=== PATIENT | male | born 1965 | race Caucasian/White ===

== ENCOUNTER 2022-12-04 08:57 | Emergency (ER) | payer BC, SELFPAY ==
[2022-12-04] VITALS (16 sets, daily range): BP systolic 146–148; BP diastolic 67–72; PULSE 94–101; RESP 17–23; TEMP 36.9; O2SAT 91–95; BMI 27.3
--- NOTE | 2022-12-04 09:23 | ED.GENADUL1 ---
HPI - General Adult General Chief complaint: Upper Respiratory Infection Stated complaint: Congestion cough Time Seen by Provider: 12/04/22 09:19 History of Present Illness HPI narrative: The patient is coming to us with cough as well as difficulty breathing after he was diagnosed 2 days ago by his primary care doctor for possible pneumonia and started on antibiotic The patient mentioned that he did not improve denies any other complaints although he have also history of asthma But he does not have an inhaler at home Related Data Previous Rx's Medication Instructions Recorded albuterol sulfate 90 mcg/actuation 2 inh inhalation Q6H PRN shortness 12/04/22 breath activated powder inhaler of breath or wheezing #1 ea azithromycin 250 mg tablet See Rx Instructions PO .COMPLEX #6 12/04/22 (Zithromax Z-Beny) tabs prednisone 50 mg tablet 50 mg PO DAILY 5 days #5 tabs 12/04/22 Allergies Allergy/AdvReac Type Severity Reaction Status Date / Time No Known Drug Allergies Allergy Verified 12/04/22 09:40 Review of Systems ROS Status of ROS 10 or more systems reviewed and unremarkable except as noted in history and below PFSH PFS Social History Smoking status: Never smoker Exam Narrative Exam Narrative: Nurses notes and vital signs reviewed and patient is not hypoxic. General: Well-appearing and in no apparent distress. Skin: Warm, dry, no pallor noted. No rash. Head: Normocephalic, atraumatic. Neck: Supple, non-tender. Eye: Pupils are equal, round and EOMI. No scleral icterus. Ears, Nose, Mouth, and Throat: TM are clear, no nasal mucosal hypertrophy. Oral mucosa is moist, no posterior oropharynx erythema, uvula is mid-line Cardiovascular: Regular Rate and Rhythm without murmur, gallop or rub. Respiratory: Bilateral lung rhonchi heard in both lung goyal Lungs are clear to auscultation, no wheezing, rales or rhonchi Chest Wall: no tenderness Back: No midline thoracic or lumbar vertebral tenderness. No CVA tenderness Musculoskeletal: normal ROM, no calf or popliteal tenderness, no lower extremity edema/swelling GI: Abdomen is soft, non-distended. Normal bowel sounds. No masses appreciated. No tenderness to palpation. No rebound, guarding, or rigidity noted. Neurological: A&O x4. No cranial nerve dysfunction observed. No truncal ataxia. Moves all extremities. Sensation intact. Psychiatric: Cooperative and interactive. Normal mood and affect. Constitutional Vital Signs, click to edit/add: Last Vital Signs Temp 98.5 F 12/04/22 09:04 Pulse 100 H 12/04/22 12:10 Resp 21 12/04/22 12:10 BP 146/72 H 12/04/22 09:59 Pulse Ox 93 L 12/04/22 12:10 O2 Del Method Room Air 12/04/22 09:45 Course Vital Signs Vital signs: Vital Signs Temperature 98.5 F 12/04/22 09:04 Pulse Rate 96 H 12/04/22 09:04 Respiratory Rate 18 12/04/22 09:04 Blood Pressure 148/67 H 12/04/22 09:04 Pulse Oximetry 94 L 12/04/22 09:04 Oxygen Delivery Method Room Air 12/04/22 09:04 Temperature 98.5 F 12/04/22 09:04 Pulse Rate 100 H 12/04/22 12:10 Respiratory Rate 21 12/04/22 12:10 Blood Pressure 146/72 H 12/04/22 09:59 Pulse Oximetry 93 L 12/04/22 12:10 Oxygen Delivery Method Room Air 12/04/22 09:45 Medical Decision Making MDM Narrative Medical decision making narrative: Chest x-ray showed no acute pathology the patient also had an EKG in the ER that was showing sinus rhythm with a heart rate of [address] elevation or depression CBC shows leukocytosis and the chemistry was within normal the patient was treated in the ER with Solu-Medrol as well as breathing treatment after which she was feeling much better I did walk with him in the room to make sure that his pulse ox was not drop and he was feeling a lot better with no difficulty breathing I did stop the patient doxycycline and give him 1 dose of ceftriaxone and azithromycin in the ER discharged home with a Z-Beny The patient is to follow up with primary care physician in next 2-3 days or to return to the emergency department should any of the signs or symptoms worsen or new symptoms develop. The patient agrees with the following Diagnosis and Treatment plan and the patient will be discharged home. Lab Data Labs: Lab Results 12/04/22 Range/Units 08:57 WBC 18.2 H (4.0-11.0) 10^3/uL RBC 5.32 (4.70-6.10) 10^6/uL Hgb 10.2 L (14.0-18.0) g/dL Hct 39.0 L (42.0-54.0) % MCV 73.3 L (80.0-94.0) fL MCH 19.2 L (25.9-34.0) pg MCHC 26.2 L (29.9-35.2) g/dL RDW 19.6 H (11.0-15.0) % Plt Count 981 H (150-450) 10^3/uL MPV 8.5 L (9.5-13.5) fL Neut % (Auto) 86.4 H (43.0-75.0) % Lymph % (Auto) 4.1 L (20.5-60.0) % [place] % (Auto) 3.6 (1.7-12.0) % Eos % (Auto) 2.4 (0.9-7.0) % Baso % (Auto) 1.1 (0.2-2.0) % Neut # (Auto) 15.7 H (1.4-6.5) 10^3/uL Lymph # (Auto) 0.7 L (1.2-3.8) 10^3/uL [place] # (Auto) 0.7 (0.3-0.8) 10^3/uL Eos # (Auto) 0.4 (0.0-0.7) 10^3/uL Baso # (Auto) 0.2 H (0.0-0.1) 10^3/uL Abs Immat Gran (auto) 0.44 H (0.00-0.03) 10^3/uL Imm/Tot Granulo (auto) 2.4 H (0.0-0.5) % Sodium 141 (136-145) mmol/L Potassium 4.3 (3.5-5.1) mmol/L Chloride 105 (98-107) mmol/L Carbon Dioxide 27.2 (21.0-32.0) mmol/L Anion Gap 13.1 BUN 13.0 (7.0-18.0) mg/dL Creatinine 1.00 (0.70-1.30) mg/dL Est GFR ( Amer) >60 (>=60) Est GFR (Non-Af Amer) >60 (>=60) BUN/Creatinine Ratio 13.0 Glucose 85 (74-106) mg/dL Calcium 8.5 (8.5-10.1) mg/dL Total Bilirubin 0.7 (0.2-1.0) mg/dL AST 17 (15-37) U/L ALT 22 (16-63) U/L Alkaline Phosphatase 67 (46-116) U/L Troponin I High Sens 4.7 (4.0-76.1) pg/mL Total Protein 7.1 (6.4-8.2) g/dL Albumin 3.8 (3.4-5.0) g/dL Globulin 3.3 g/dL Albumin/Globulin Ratio 1.2 Discharge Plan Discharge Chief Complaint: Upper Respiratory Infection Clinical Impression: Pneumonia Patient Disposition: Home, Self-Care Time of Disposition Decision: 11:45 Condition: Good Prescriptions / Home Meds: New azithromycin [Zithromax Z-Beny] 250 mg tablet See Rx Instructions .ROUTE .COMPLEX Qty: 6 0RF Rx Instructions: For 250 mg dose pack: take 500 mg today (day 1), then 250 mg for 4 days (days 2-5) prednisone 50 mg tablet 50 mg PO DAILY 5 Days Qty: 5 0RF albuterol sulfate 90 mcg/actuation aerosol powdr breath activated 2 inh inhalation Q6H PRN (Reason: shortness of breath or wheezing) Qty: 1 0RF Instructions: Community Acquired Pneumonia (DC) Stand Alone Forms: Portal Instructions Referrals: Tigre Rodríguez DO [Primary Care Provider] - 1 week Discharge Date/Time: 12/04/22 12:55
--- NOTE | 2022-12-04 09:24 | XR_ITS ---
The [address] [address] Patient Name: SHANEKA HERRERA MRN: [id number] date: 1965 Sex: M Assigned Patient Location: ER Current Patient Location: ED.MAIN Accession/Order Number: [id number] Exam Date: 12/04/2022 09:34 Report Date: 12/04/2022 10:54 At the request of: SRINIVAS VILLAVICENCIO Procedure: XR chest 1V EXAM: XR chest 1V 12/04/2022 FINDINGS: Single upright AP chest image was obtained. HISTORY: SOB. COMPARISON: None. XR/XR chest 1V IMPRESSION: 1. Prior [id number] fixation of the mid left clavicle for treatment of fracture. 2. The cardiomediastinal contours are within normal limits. Minimal left basilar atelectatic changes noted. 3. No dense consolidation, effusion, edema, failure, pneumothorax, or acute osseous abnormality otherwise identified. Electronically authenticated by: TINO MI Date: 12/04/2022 10:54
--- NOTE | 2022-12-04 09:24 | ECG_ITS ---
[facility] Test Date: 2022-12-04 Pat Name: Anil Leos Department: Room: - Gender: Male [employer]: : 1965 Requested By: GRETA MERIDA Order Number: [id number] Reading MD: GRETA MERIDA Measurements Intervals [place] Rate: 92 P: 70 WA: 152 QRS: 74 QRSD: 88 T: 61 QT: 370 QTc: 420 Interpretive Statements 1100 Sinus rhythm 2420 RSR (QR) in lead V1/V2, consistent with right ventricular conduction delay [address] depression 6220 Possible left atrial enlargement 9130 borderline ECG No previous ECG available for comparison Electronically Signed On 12-05-2022 16:52:57 EDT by GRETA MERIDA
[2022-12-04] MEDS: IPRATROPIUM/ALBUTEROL SULFATE 3 ML AMPUL.NEB IH (09:45)
[2022-12-04] MEDS: METHYLPREDNISOLONE SOD SUCC PF 125 MG/2 ML VIAL IVP (09:50)
[2022-12-04 10:05] LABS: Basophils Absolute Auto 0.2 10^3/uL (0.0-0.1); Basophils Percent Auto 1.1 % (0.2-2.0); Eosinophils Absolute Auto 0.4 10^3/uL (0.0-0.7); Eosinophils Percent Auto 2.4 % (0.9-7.0); Hemoglobin 10.2 g/dL (14.0-18.0); Immature Granulocytes Abs Auto 0.44 10^3/uL (0.00-0.03); Immature Granulocytes Pct Auto 2.4 % (0.0-0.5); Lymphocytes Absolute Auto 0.7 10^3/uL (1.2-3.8); Lymphocytes Percent Auto 4.1 % (20.5-60.0); Mean Corpuscular Hemoglobin 19.2 pg (25.9-34.0); Mean Corpuscular Volume 73.3 fL (80.0-94.0); Mean Platelet Volume 8.5 fL (9.5-13.5); Monocytes Absolute Auto 0.7 10^3/uL (0.3-0.8); Monocytes Percent Auto 3.6 % (1.7-12.0); Neutrophils Absolute Auto 15.7 10^3/uL (1.4-6.5); Neutrophils Percent Auto 86.4 % (43.0-75.0); Platelet Count 981 10^3/uL (150-450); Red Blood Count 5.32 10^6/uL (4.70-6.10); Red Cell Distribution Width 19.6 % (11.0-15.0); White Blood Count 18.2 10^3/uL (4.0-11.0)
[2022-12-04 10:06] LABS: Mean Corpuscular HGB Conc 26.2 g/dL (29.9-35.2)
--- NOTE | 2022-12-04 10:29 | PC.NURSE ---
Patient currently on clinical trial for increased blood cell production. taking medication [id number]. Labs may show decreased hematocrit.
[2022-12-04 10:37] LABS: Alanine Aminotransferase 22 U/L (16-63); Albumin Globulin Ratio 1.2; Albumin Level 3.8 g/dL (3.4-5.0); Alkaline Phosphatase 67 U/L (46-116); Anion Gap 13.1; Aspartate Amino Transferase 17 U/L (15-37); Bilirubin Total 0.7 mg/dL (0.2-1.0); Calcium 8.5 mg/dL (8.5-10.1); Carbon Dioxide 27.2 mmol/L (21.0-32.0); Chloride 105 mmol/L (98-107); Estimated GFR (African America >60 (>=60); Estimated GFR (Non-African Ame >60 (>=60); Globulin 3.3 g/dL; Glucose 85 mg/dL (74-106); Potassium 4.3 mmol/L (3.5-5.1); Sodium 141 mmol/L (136-145); Total Protein 7.1 g/dL (6.4-8.2); Troponin I High Sensitivity 4.7 pg/mL (4.0-76.1)
[2022-12-04] MEDS: CEFTRIAXONE 1,000 MG in 0.9 % SODIUM CHLORIDE 50 ML 100 MG IV (11:20)
[2022-12-04] MEDS: AZITHROMYCIN 500 MG in 0.9 % SODIUM CHLORIDE 250 ML 250 MG IV (11:22)
== END 2022-12-04 12:55 | disposition home or self-care (01) ==
PROVIDERS: Emergency Provider Emergency Medicine; PCP Internal Medicine
DX: J18.9 Pneumonia, unspecified organism (principal)
CPT/HCPCS: 36415; 71045; 80053; 84484; 85025; 93005; 94640; 96365; 96366; 96368; 96375; 99285; J0456; J2930

== ENCOUNTER 2023-08-12 21:54 | Emergency (ER) | payer OTHER, SELFPAY ==
--- OUTSIDE RECORDS SUMMARY | 2023-08-12 22:02 | XMS_ITS ---
Patient Summarization (C-CDA 2.1 CCD) Created on: August 12, 2023 ANIL LEOS : 1965 Sex: Male Author Organization Sample organization Care Team Providers Care Bpm Solution Architect Name Role Phone Nate Houser MD (Historical) Primary Care Provider Tigre Rodríguez DO Primary Care Provider Bryce Ventura MD Unavailable Agapito RN, Hannah Unavailable [phone] TIGRE RODRÍGUEZ Primary Care Physician [phone] FUAD, DR HERNANDES Consulting Unavailable BALL, DR HERNANDES Primary Care Unavailable BALL, DR HERNANDES Admitting Unavailable BALL, DR HERNANDES Attending Unavailable BALL, DR HERNANDES Consulting Unavailable BALL, DR HERNANDES Primary Care Unavailable BALL, DR HERNANDES Admitting Unavailable BALL, DR HERNANDES Attending Unavailable BALL, DR HERNANDES Attending Unavailable BALL, DR HERNANDES Consulting Unavailable BALL, DR HERNANDES Primary Care Unavailable BALL, DR HERNANDES Admitting Unavailable BALL, DR HERNANDES Attending Unavailable BALL, DR HERNANDES Primary Care Unavailable FUAD, DR HERNANDES Admitting Unavailable Tigre Rodríguez DO Primary Care Provider Bryce Ventura MD Unavailable Agapito RN, Hannah Unavailable Tigre Rodríguez DO Primary Care Provider Bryce Ventura MD Unavailable Agapito RN, Hannah Unavailable [phone] Tigre Rodríguez Unavailable Agapito MC, Hannah Unavailable Tigre Rodríguez DO Primary Care Provider BRYCE VENTURA Referring Unavailable TIGRE RODRÍGUEZ Primary Care Unavailable BRYCE VENTURA T Referring Unavailable TIGRE RODRÍGUEZ Primary Care Unavailable ANNIE ABREU Attending Unavailable BRYCE VENTURA Referring Unavailable TIGRE RODRÍGUEZ Primary Care Unavailable BRYCE VENTURA Referring Unavailable TIGRE RODRÍGUEZ Primary Care Unavailable ANNIE ABREU Attending Unavailable GERDS, BRYCE T Referring Unavailable BALL, TIGRE E Primary Care Unavailable GERDS, BRYCE T Referring Unavailable BALL, TIGRE E Primary Care Unavailable BALL, TIGRE E Primary Care Unavailable BALDERMAN, TREVA Referring Unavailable BALL, TIGRE E Primary Care Unavailable BALDERMAN, TREVA Referring Unavailable GERDS, BRYCE T Referring Unavailable BALL, TIGRE E Primary Care Unavailable GERDS, BRYCE T Referring Unavailable BALL, TIGRE E Primary Care Unavailable GERDS, BRYCE T Referring Unavailable BALL, TIGRE E Primary Care Unavailable KUN MATTSON Attending Unavailable GERDS, BRYCE T Referring Unavailable BALL, TIGRE E Primary Care Unavailable GERDS, BRYCE T Referring Unavailable BALL, TIGRE E Primary Care Unavailable BALL, TIGRE E Primary Care Unavailable GERDS, BRYCE T Referring Unavailable BALL, TIGRE E Primary Care Unavailable BALDERMAN, TREVA Referring Unavailable BALDERMANBRENTIA Attending Unavailable GERDS, BRYCE T Referring Unavailable BALL, TIGRE E Primary Care Unavailable GERDS, BRYCE T Referring Unavailable BALL, TIGRE E Primary Care Unavailable GERDS, BRYCE T Referring Unavailable SHERYL GONZALEZ Attending Unavailable BALL, TIGRE E Primary Care Unavailable BALL, TIGRE E Primary Care Unavailable GERDS, BRYCE T Referring Unavailable BALL, TIGRE E Primary Care Unavailable ANNIE ABREU Attending Unavailable GERDS, BRYCE T Referring Unavailable GERDS, BRYCE T Referring Unavailable BALL, TIGRE E Primary Care Unavailable ANNIE ABREU Attending Unavailable GERDS, BRYCE T Referring Unavailable BALL, TIGRE E Primary Care Unavailable GERDS, BRYCE T Referring Unavailable BALL, TIGRE E Primary Care Unavailable GERDS, BRYCE T Referring Unavailable BALL, TIGRE E Primary Care Unavailable GERDS, BRYCE T Referring Unavailable BALL, TIGRE E Primary Care Unavailable GERDS, BRYCE T Referring Unavailable BALL, TIGRE E Primary Care Unavailable ANNIE ABREU Attending Unavailable GERDS, BRYCE T Referring Unavailable BALL, TIGRE E Primary Care Unavailable GERDS, BRYCE T Referring Unavailable BALL, TIGRE E Primary Care Unavailable GERDS, BRYCE T Referring Unavailable BALL, TIGRE E Primary Care Unavailable GERDS, BRYCE T Referring Unavailable BALL, TIGRE E Primary Care Unavailable GERDS, BRYCE T Referring Unavailable BALL, TIGRE E Primary Care Unavailable GERDS, BRYCE T Referring Unavailable BALL, TIGRE E Primary Care Unavailable ANNIE ABREU Attending Unavailable GERDS, BRYCE T Referring Unavailable BALL, TIGRE E Primary Care Unavailable Allergies Allergy Classification Reported Allergen(s) Allergy Type Date of Onset Reaction(s) Facility Sulfamethoxazole / Trimethoprim (1 source) Sulfamethoxazole / Trimethoprim Drug Allergy 1 Rash [facility] (20 sources) Sulfamethoxazole / Trimethoprim; Translations: [SULFAMETHOXAZOLE-TR IMETHOPRIM] Drug Allergy 1 [facility] (1 source) Cefuroxime; Translations: [cefuroxime] Drug Allergy [facility] (1 source) Etodolac; Translations: [etodolac] Drug Allergy [facility] (2 sources) Etodolac Drug Allergy 6 [facility] Repository Encounters Encounter Date Encounter Type Care Provider Facility Start: 08-11-2023 End: 08-11-2023 Nursing evaluation of patient and report Anaid Mabry RN Hematology/Oncology Comment on above: Polycythemia vera (H CC) (Primary Dx) Start: 08-11-2023 End: 08-12-2023 ambulatory TIGRE RODRÍGUEZ Facility:[facility] Start: 07-19-2023 End: 07-19-2023 ambulatory [facility] Work Phone: Start: 07-19-2023 End: 07-19-2023 Patient encounter procedure [facility] Work Phone: Start: 07-14-2023 End: 07-14-2023 Orders Only Tad Davis MD Work Phone: Hematology/Oncology Comment on above: Polycythemia vera (H CC) (Primary Dx) Start: 07-14-2023 Non-patient / Non-visit [facility] Work Phone: Start: 06-16-2023 End: 06-16-2023 Nursing evaluation of patient and report Hannah Lyons RN Work Phone: Hematology/Oncology Comment on above: Polycythemia vera (H CC) (Primary Dx) Start: 06-16-2023 End: 06-16-2023 Patient encounter procedure Annie Abreu APRN.CHAMFERING MACHINE OPERATOR Work Phone: Hematology/Oncology Start: 06-16-2023 End: 06-16-2023 Patient entered into trial Annie Abreu APRN.CHAMFERING MACHINE OPERATOR Work Phone: [facility] Start: 06-16-2023 Non-patient / Non-visit [facility] Work Phone: Start: 06-16-2023 End: 06-16-2023 ambulatory Annie Abreu CONFIGURATION MANAGEMENT ANALYST.CHAMFERING MACHINE OPERATOR Work Phone: Hematology/Oncology Comment on above: Polycythemia vera (H CC) (Primary Dx); Research study patient Start: 05-31-2023 End: 05-31-2023 ambulatory [facility] Work Phone: Start: 05-31-2023 End: 05-31-2023 Patient encounter procedure [facility] Work Phone: Start: 05-19-2023 End: 05-20-2023 ambulatory Annie Abreu CONFIGURATION MANAGEMENT ANALYST.CHAMFERING MACHINE OPERATOR Work Phone: Hematology/Oncology Comment on above: Polycythemia vera (H CC) (Primary Dx); Research study patient Polycythemia vera (H CC) (Primary Dx) Start: 05-19-2023 Chart abstracting Flavio garcia Research Coordinator Hematology/Oncology Comment on above: Research (PTG 1Z21 E OT Rollover to PTG 1923 C1D1 Enrollment) Start: 05-19-2023 End: 05-19-2023 Subsequent hospital visit by physician Pattie Gastelum Work Phone: Radiology Comment on above: Polycythemia vera (H CC) [D45] Start: 05-19-2023 End: 05-19-2023 Patient encounter procedure Annie Abreu CONFIGURATION MANAGEMENT ANALYST.CHAMFERING MACHINE OPERATOR Work Phone: [facility] Start: 05-19-2023 End: 05-19-2023 Patient entered into trial Annie Abreu CONFIGURATION MANAGEMENT ANALYST.CHAMFERING MACHINE OPERATOR Work Phone: [facility] Work Phone: Start: 05-19-2023 Non-patient / [facility] Work Phone: Start: 05-19-2023 End: 05-19-2023 Nursing evaluation of patient and report Hannah Lyons RN Work Phone: Hematology/Oncology Comment on above: Polycythemia vera (H CC) (Primary Dx) Start: 05-18-2023 Telephone encounter Financial Navigator Venkat Work Phone: Hematology/Oncology Comment on above: Benefits Investigati on Start: 05-17-2023 Telephone encounter Hannah Lyons RN Work Phone: Hematology/Oncology Comment on above: Research (PTG 1923/2 4-180 consent presentation) Start: 05-16-2023 Orders Only Bryce Ventura MD Work Phone: Hematology/Oncology Comment on above: Polycythemia rubra v era (HCC) (Primary Dx) Start: 03-24-2023 End: 03-24-2023 Nursing evaluation of patient and report Hannah Lyons RN Work Phone: Hematology/Oncology Comment on above: Polycythemia vera (H CC) (Primary Dx) Start: 03-24-2023 End: 03-24-2023 Patient encounter procedure Annie Abreu APRN.CHAMFERING MACHINE OPERATOR Work Phone: [facility] Start: 03-24-2023 End: 03-24-2023 Patient entered into trial Annie Abreu APRN.CHAMFERING MACHINE OPERATOR Work Phone: [facility] Work Phone: Start: 03-24-2023 End: 03-24-2023 ambulatory Annie Abreu APRN.CHAMFERING MACHINE OPERATOR Work Phone: Hematology/Oncology Comment on above: Polycythemia vera (H CC) (Primary Dx); Research study patient; Bilateral cold feet Start: 03-22-2023 Telephone encounter Anaid Mabry RN Hematology/Oncology Comment on above: Appointment Reschedu led Start: 01-27-2023 End: 01-27-2023 ambulatory BRYCE VENTURA Facility:[facility] Start: 01-27-2023 End: 01-27-2023 ambulatory BRYCE VENTURA Facility:[facility] Start: 12-03-2022 End: 12-03-2022 ambulatory Tigre Rodríguez Other [facility] Other Start: 12-03-2022 Office outpatient vi sit 15 minutes Tigre SERVIN [facility] Start: 12-03-2022 Telephone encounter Tigre Rodriguez [facility] Start: 12-02-2022 End: 12-02-2022 ambulatory BRYCE VENTURA Facility:[facility] Start: 12-02-2022 End: 12-02-2022 Subsequent hospital visit by physician Pattie Gastelum Work Phone: Radiology Comment on above: PV (polycythemia torrey a) (HCC) [D45] Start: 12-02-2022 End: 12-02-2022 Nursing evaluation of patient and report Hannah Lyons RN Work Phone: Hematology/Oncology Comment on above: Polycythemia vera (H CC) (Primary Dx) Start: 12-02-2022 End: 12-02-2022 ambulatory TIGRE RODRÍGUEZ Facility:[facility] Start: 10-08-2022 End: 10-08-2022 ambulatory Tigre Rodríguez Other [facility] Other Start: 10-08-2022 Telephone encounter Tigre Rodríguez [facility] Start: 10-07-2022 End: 10-07-2022 Nursing evaluation of patient and report Hannah Lyons RN Work Phone: Hematology/Oncology Comment on above: Polycythemia vera (H CC) (Primary Dx) Start: 10-07-2022 End: 10-07-2022 Patient encounter procedure Sheryl Gonzalez PA-C Work Phone: [facility] Start: 10-07-2022 End: 10-07-2022 ambulatory Sheryl SALAZAR-Darline Work Phone: Hematology/Oncology Comment on above: Polycythemia vera (H CC) (Primary Dx) Start: 10-07-2022 Encounter for genera l adult medical examination without abnormal findings BRYCE VENTURA [facility] Start: 10-06-2022 End: 10-06-2022 ambulatory Tigre Rodríguez Other [facility] Other Start: 10-06-2022 Encounter for genera l adult medical examination without abnormal findings Tigre Rodríguez [facility] Start: 10-06-2022 Periodic preventive med est patient 40-64yrs Tigre Rodríguez [facility] Start: 09-10-2022 Telephone encounter Hannah Lyons RN Work Phone: Hematology/Oncology Comment on above: Appointment Start: 09-10-2022 End: 09-10-2022 ambulatory BRYCE VENTURA Facility:[facility] Start: 08-25-2022 Orders Only Bryce Ventura MD Work Phone: Hematology/Oncology Comment on above: Polycythemia vera (H CC) (Primary Dx) Start: 08-13-2022 End: 08-13-2022 Nursing evaluation of patient and report Kyleigh Rust tree planter/Oncology Comment on above: Polycythemia vera (H CC) (Primary Dx) Start: 08-13-2022 End: 08-13-2022 Patient encounter procedure Annie Abreu APRN.CNP Work Phone: [facility] Start: 08-13-2022 End: 08-13-2022 Patient entered into trial Annie Abreu APRN.CHAMFERING MACHINE OPERATOR Work Phone: Hematology/Oncology Start: 08-13-2022 End: 08-13-2022 ambulatory Annie Abreu APRN.CHAMFERING MACHINE OPERATOR Work Phone: Hematology/Oncology Comment on above: Polycythemia vera (H CC) (Primary Dx); Research study patient; Dizziness Start: 08-09-2022 Telephone encounter Kyleigh Strong i tree planter/Oncology Comment on above: Returning Patient's Call Start: 06-18-2022 Orders Only Bryce Ventura MD Work Phone: Hematology/Oncology Comment on above: Polycythemia vera (H CC) (Primary Dx) Start: 06-17-2022 End: 06-17-2022 Orders Only Tad Davis MD Work Phone: Hematology/Oncology Comment on above: Polycythemia vera (H CC) (Primary Dx) Start: 06-04-2022 End: 06-04-2022 ambulatory Tigre Rodríguez Other [facility] Other Start: 06-04-2022 Nursing evaluation o f patient and report Tigre Rodríguez [facility] Start: 04-23-2022 Orders Only Meghan Brady PRN.CHAMFERING MACHINE OPERATOR Work Phone: Hematology/Oncology Comment on above: Polycythemia vera (H CC) (Primary Dx) Start: 04-22-2022 End: 04-22-2022 Nursing evaluation of patient and report Hannah Lyons RN Work Phone: Hematology/Oncology Comment on above: Polycythemia vera (H CC) (Primary Dx) Start: 04-22-2022 End: 04-22-2022 Subsequent hospital visit by physician Pattie Gastelum Work Phone: Radiology Comment on above: Splenomegaly, not el sewhere classified [R16.1] 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] Start: 02-25-2022 End: 02-25-2022 Nursing evaluation of patient and report Hannah Lyons RN Work Phone: Hematology/Oncology Comment on above: Polycythemia vera (H CC) (Primary Dx) Start: 02-25-2022 End: 02-25-2022 Office outpatient visit 25 minutes Bryce Ventura MD Work Phone: Hematology/Oncology Comment on above: Polycythemia vera (H CC) (Primary Dx) Start: 02-22-2022 Orders Only Bryce Ventura MD Work Phone: Hematology/Oncology Comment on above: Polycythemia vera (H CC) (Primary Dx) Splenomegaly, not el sewhere classified (Primary Dx) Start: 02-03-2022 Telephone encounter Hannah Lyons RN Work Phone: Hematology/Oncology Comment on above: Appointment Start: 01-28-2022 End: 01-28-2022 ambulatory Meghan Graves CONFIGURATION MANAGEMENT ANALYST.CHAMFERING MACHINE OPERATOR Work Phone: Hematology/Oncology Comment on above: Polycythemia vera (H CC) (Primary Dx) Start: 01-28-2022 End: 01-28-2022 Patient encounter procedure Meghan Graves CONFIGURATION MANAGEMENT ANALYST.CHAMFERING MACHINE OPERATOR Work Phone: [facility] Start: 12-31-2021 End: 12-31-2021 ambulatory Meghan Graves CONFIGURATION MANAGEMENT ANALYST.CHAMFERING MACHINE OPERATOR Work Phone: Hematology/Oncology Comment on above: Polycythemia vera (H CC) (Primary Dx) Start: 12-31-2021 End: 12-31-2021 Patient encounter procedure Meghan Graves CONFIGURATION MANAGEMENT ANALYST.CHAMFERING MACHINE OPERATOR Work Phone: [facility] Start: 12-28-2021 Orders Only Meghan Graves A PRN.CHAMFERING MACHINE OPERATOR Work Phone: Hematology/Oncology Comment on above: Polycythemia vera (H CC) (Primary Dx) Start: 12-03-2021 End: 12-03-2021 Nursing evaluation of patient and report Hannah Lyons RN Work Phone: Hematology/Oncology Comment on above: Polycythemia vera (H CC) (Primary Dx) Start: 12-02-2021 Orders Only Meghan Graves A PRN.CHAMFERING MACHINE OPERATOR Work Phone: Hematology/Oncology Comment on above: Polycythemia vera (H CC) (Primary Dx) Start: 11-05-2021 End: 11-05-2021 ambulatory Meghan Graves CONFIGURATION MANAGEMENT ANALYST.CHAMFERING MACHINE OPERATOR Work Phone: Hematology/Oncology Comment on above: Polycythemia vera (H CC) (Primary Dx) Start: 11-05-2021 End: 11-05-2021 Patient encounter procedure Meghan Graves CONFIGURATION MANAGEMENT ANALYST.CHAMFERING MACHINE OPERATOR Work Phone: [facility] Start: 10-15-2021 Orders Only Meghan Graves RN [facility] tology/Oncology Comment on above: Polycythemia vera (H CC) (Primary Dx) Start: 10-08-2021 End: 10-08-2021 ambulatory Elizabeth Dunn APRN.CHAMFERING MACHINE OPERATOR Work Phone: Hematology/Oncology Comment on above: Polycythemia vera (H CC) (Primary Dx) Start: 10-08-2021 End: 10-08-2021 Nursing evaluation of patient and report Hannah Lyons RN Work Phone: Hematology/Oncology Comment on above: Polycythemia vera (H CC) (Primary Dx) Start: 10-08-2021 End: 10-08-2021 Patient encounter procedure Elizabeth Dunn APRN.CHAMFERING MACHINE OPERATOR Work Phone: [facility] Start: 09-21-2021 Orders Only Bryce Ventura MD Work Phone: Hematology/Oncology Comment on above: 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) Start: 09-17-2021 Encounter for genera l adult medical examination without abnormal findings DR TIGRE RODRÍGUEZ [facility] Start: 09-11-2021 End: 09-12-[address] TIGRE RODRÍGUEZ Facility:[facility] Start: 09-11-2021 End: 09-12-2021 Encounter for general adult medical examination without abnormal findings DR TIGRE RODRÍGUEZ Facility:[facility] Start: 09-10-2021 End: 09-10-2021 Nursing evaluation of patient and report Hannah Lyons RN Work Phone: Hematology/Oncology Comment on above: Polycythemia vera (H CC) (Primary Dx) Start: 09-10-2021 End: 09-10-2021 ambulatory Bryce Ventura MD Work Phone: Hematology/Oncology Comment on above: Polycythemia vera (H CC) (Primary Dx) Start: 09-10-2021 End: 09-10-2021 Patient encounter procedure Bryce Ventura MD Work Phone: [facility] Start: 09-10-2021 End: 09-10-2021 Subsequent hospital visit by physician Pattie Main Ca Work Phone: Radiology Comment on above: Splenomegaly, not el sewhere classified [R16.1] Start: 09-01-2021 Telephone encounter Hannah Lyons RN Work Phone: Hematology/Oncology Comment on above: Patient Question; Re search (PTG 1Z21/21-283) Start: 08-11-2021 End: 08-11-2021 ambulatory Elizabeth Dunn APRN.CHAMFERING MACHINE OPERATOR Work Phone: Hematology/Oncology Comment on above: Polycythemia vera (H CC) (Primary Dx) Start: 08-11-2021 End: 08-11-2021 Nursing evaluation of patient and report Hannah Lyons RN Work Phone: Hematology/Oncology Comment on above: Polycythemia vera (H CC) (Primary Dx) Start: 08-11-2021 End: 08-11-2021 Patient encounter procedure Elizabeth Dunn APRN.CHAMFERING MACHINE OPERATOR Work Phone: [facility] Start: 07-27-2021 Orders Only Elizabeth MORTON RN.CHAMFERING MACHINE OPERATOR Work Phone: Hematology/Oncology Comment on above: Polycythemia vera (H CC) (Primary Dx) Start: 07-14-2021 End: 07-14-2021 ambulatory Bryce Ventura MD Work Phone: Hematology/Oncology Comment on above: Polycythemia vera (H CC) (Primary Dx) Start: 07-14-2021 End: 07-14-2021 Nursing evaluation of patient and report Hannah Lyons RN Work Phone: Hematology/Oncology Comment on above: Polycythemia vera (H CC) (Primary Dx) Start: 07-14-2021 End: 07-14-2021 Patient encounter procedure Bryce Ventura MD Work Phone: [facility] Start: 06-18-2021 End: 06-18-2021 Nursing evaluation of patient and report Hannah Lyons RN Work Phone: Hematology/Oncology Comment on above: Polycythemia vera (H CC) (Primary Dx) Start: 05-21-2021 End: 05-21-2021 ambulatory Meghan Graves APRN.CHAMFERING MACHINE OPERATOR Work Phone: Hematology/Oncology Comment on above: Polycythemia vera (H CC) (Primary Dx) Start: 05-21-2021 End: 05-21-2021 Nursing evaluation of patient and report Hannah Lyons RN Work Phone: Hematology/Oncology Comment on above: Polycythemia vera (H CC) (Primary Dx) Start: 05-21-2021 End: 05-21-2021 Patient encounter procedure Meghan Graves APRN.CHAMFERING MACHINE OPERATOR Work Phone: [facility] Start: 2021 End: 06-05-2021 Patient encounter procedure Juan Allen [facility] Start: 11-09-[address] TIGRE RODRÍGUEZ Facili ty:[facility] Start: 10-15-2020 End: 10-15-2020 Chart abstracting Robert Cummings MD Work Phone: Hematology/Oncology Start: 10-01-2020 End: 10-02-[address] TIGRE RODRÍGUEZ Facility:[facility] Start: 09-29-2020 End: 09-30-[address] TIGRE RODRÍGUEZ Facility:[facility] Immunizations Immunization Date Immunization Notes Care Provider [facility] 02-03-2022 influenza virus vaccine, split virus (incl. purified surface antigen) Tigre Rodríguez Other [facility] Other 02-03-2022 influenza virus vaccine, unspecified formulation Hannah Lyons RN Work Phone: [facility] 01-28-2021 COVID-19 vaccine (UNSPECIFIED) Meghan Graves APRN.CHAMFERING MACHINE OPERATOR Work Phone: [facility] 01-23-2021 influenza, injectabl e, quadrivalent, preservative free Meghan Graves APRN.CHAMFERING MACHINE OPERATOR Work Phone: [facility] 05-23-2020 COVID-19 vaccine, ag e 12+ yr ([employer] - PURPLE TOP) Meghan Graves APRN.CHAMFERING MACHINE OPERATOR Work Phone: [facility] 05-02-2020 COVID-19 vaccine, ag e 12+ yr ([employer] - PURPLE TOP) Meghan Graves APRN.[facility] Work Phone: [facility] 12-24-2019 influenza virus vaccine, split virus (incl. purified surface antigen) Tigre Rodríguez Other [facility] Other 12-24-2019 influenza virus vaccine, unspecified formulation [facility] Medications Current Medications Medication Drug Class(es) Dates Sig (Normalized) Sig (Original) amLODIPine 5 mg oral tablet (20 sources) Dihydropyridine Calcium Channel Candace Start: 07-19-2023 take 5 mg by mouth once daily Amlodipine Active 5 MG PO Daily July 19, 2023 12:00am Start: 10-01-2020 take 1 tablet by miriam th once daily amLODIPine (NORVASC) 5 mg tablet Take 5 mg by mouth once daily. 0 10/01/2020 Active Comment on above: Take 5 mg by mouth o nce daily. amoxicillin 875 mg / clavulanate 125 mg oral tablet (1 source) Penicillin-class Antibacterial Start: 024 take 1 tablet by mouth twice daily Amoxicillin-Pot Clavulanate Active 1 TAB PO Twice daily 14 7 July 19, 2023 12:00am aspirin 81 mg oral tablet (20 sources) Platelet Aggregation Inhibitor, Nonsteroidal Anti-inflammatory Drug aspirin 81 mg cap Take by mouth once daily. 0 Active Comment on above: Take by mouth once d aily. doxycycline hyclate 100 mg oral capsule (2 sources) Tetracycline-class Drug Start: take 1 capsule by mouth every twelve hours Doxycycline Hyclate 100 MG 1 capsule Orally Twice a day for 5 days Nov, Active efinaconazole 100 mg/ml topical solution (20 sources) Azole Antifungal efinaconazole 1 0 % alfa Apply 1 application to affected area once daily. 0 Active Comment on above: Apply 1 application to affected area once daily. enteric contrast (will be provided with radiology test) (2 sources) Start: End: enteric contrast (will be provided with radiology test) For CT ABD WO IVCON order Administer, As Directed One Time Only, via Oral, Rectal, both Oral and Rectal, Enteric Tube, Stoma or Indwelling Catheter, Enteric Contrast as designated per enteric contrast guidelines 1 Each 0 02/22/2022 02/23/2022 Active Comment on above: For CT ABD WO IVCON order Administer, As Directed One Time Only, via Oral, Rectal, both Oral and Rectal, Enteric Tube, Stoma or Indwelling Catheter, Enteric Contrast as designated per enteric contrast guidelines fluticasone propionate 0.05 mg/actuat metered dose nasal spray (1 source) Corticosteroid Start: take 1 spray(s) nasal route twice daily Fluticasone Propionate (Flonase Allergy Relief) 50 mcg/actuation spray,suspension Active 1 SPRAY INTRANASAL Twice daily July 19, 2023 12:00am administer into each nostril KRILL OIL ORAL (20 sources) KRILL OIL ORAL T margarito by mouth twice daily. 0 Active Comment on above: Take by mouth twice daily. magnesium glycinate 100 mg magnesium capsule (4 sources) Start: take 2 capsules by mouth once daily, then take 2 capsules by mouth once daily magnesium glycinate 100 mg magnesium capsule Take 2 capsules by mouth once daily. Take 2 capsules by mouth once daily in late afternoon 30 capsule 1 07/14/2023 Active meclizine hydrochloride 12.5 mg oral tablet (3 sources) Antiemetic Start: End: take 2 tablets by mouth every twelve hours as needed meclizine (ANTIVERT) 12.5 mg tab Take 2 tablets by mouth twice daily as needed. 28 tablet 0 08/13/2022 09/12/2022 Active Comment on above: Take 2 tablets by [facility] twice daily as needed. multivitamin with minerals (ONE-A-DAY 50 PLUS ORAL) (20 sources) multivitamin wit h minerals (ONE-A-DAY 50 PLUS ORAL) Take by mouth once daily. 0 Active Comment on above: Take by mouth once d aily. ruxolitinib (20 sources) ruxolitinib phosphate (OPZELURA TOPICAL) Apply to affected area. 0 Active Comment on above: Apply to affected ar ea. terbinafine 250 mg oral tablet (8 sources) Allylamine Antifungal Start: Terbinafine Hcl Active 250 MG PO Daily July 19, 2023 12:00am 1 tablet for 7 days, off for 3 weeks, then repeat take 250 mg by mouth once daily TERBINAFINE HCL ORAL Take 250 mg by mouth once daily. 0 Active Comment on above: Take 250 mg by mouth once daily. Completed/Discontinued Medications Medication Drug Class(es) Dates Sig (Normalized) Sig (Original) isopropyl alcohol 0.7 ml/ml medicated pad (20 sources) Start: 02-26-2021 alcohol swabs Apply 1 Each to affected area one time a week. 100 Each 0 02/26/2021 Active Comment on above: Apply 1 Each to affe cted area one time a week. Oral Medication Containers (SHARPS CONTAINER) misc (20 sources) Start: 02-26-2021 Oral Medication Containers (SHARPS CONTAINER) misc 1 Container as directed. 1 Each 0 02/26/2021 Active Comment on above: 1 Container as direc mary. triamcinolone acetonide 40 mg/ml injectable suspension (5 sources) Corticosteroid Start: 06-04-2022 Kenalog-40 May, 60 mg Payers Date Payer Category Payer Private Health Insurance [employer] A ETNA POS [id number] 2023-Present [phone] [address] [place] [address] POS [id number] 2023 Private Health Insurance [id number] 2021 Unknown [employer] SS PPO [id number] 2021-Present [phone] [address] [place] [address] PPO [id number] 2021 Unknown [id number] 2018 Unknown [facility] HMO [id number] 2018-Present HMO [id number] 1964 Unknown [id number] 1964 Unknown [id number] 1964 Unknown [id number] 1964 Unknown [id number] 1959 Self-pay 1959 Unknown [id number] 1959 Unknown [id number] Plan of Treatment Date Care Activity Detail Author Start: 10-08-2027 Lipid 1996 panel - S gwendolyn or Plasma Lipid Screening [facility] Start: 10-08-2027 Lipid panel Lipid Screening [facility] Start: 10-08-2027 LIPID SCREEN LIPID SCREEN [facility] Start: 10-08-2027 PROSTATE CANCER SCREENING DISCUSSION PROSTATE CANCER SCREENING DISCUSSION [facility] Start: 10-08-2027 Prostate specific antigen measurement Prostate Cancer Screening Discussion [facility] Start: 09-11-2026 PROSTATE CANCER SCREENING DISCUSSION PROSTATE CANCER SCREENING DISCUSSION [facility] Start: 08-10-2026 Diabetes Screening Diabetes Screenin [facility] Start: 07-13-2026 Diabetes Screening Diabetes Screenin [facility] Start: 06-15-2026 Diabetes Screening Diabetes Screenin [facility] Start: 05-18-2026 Diabetes Screening Diabetes Screenin g [facility] Start: 03-24-2026 Diabetes Screening Diabetes Screenin [facility] Start: 01-27-2026 Diabetes Screening Diabetes Screenin [facility] Start: 12-16-2025 PROSTATE CANCER SCREENING DISCUSSION PROSTATE CANCER SCREENING DISCUSSION [facility] Start: 12-02-2025 Diabetes Screening Diabetes Screenin g [facility] Start: 10-07-2025 DIABETES SCREEN DIABETES SCREEN [facility] Start: 08-13-2025 DIABETES SCREEN DIABETES SCREEN [facility] Start: 06-17-2025 DIABETES SCREEN DIABETES SCREEN [facility] Start: 04-22-2025 DIABETES SCREEN DIABETES SCREEN [facility] Start: 02-25-2025 DIABETES SCREEN DIABETES SCREEN [facility] Start: 01-28-2025 DIABETES SCREEN DIABETES SCREEN [facility] Start: 12-31-2024 DIABETES SCREEN DIABETES SCREEN [facility] Start: 12-03-2024 DIABETES SCREEN DIABETES SCREEN [facility] Start: 11-05-2024 DIABETES SCREEN DIABETES SCREEN [facility] Start: 10-08-2024 DIABETES SCREEN DIABETES SCREEN [facility] Start: 09-10-2024 DIABETES SCREEN DIABETES SCREEN [facility] Start: 08-11-2024 DIABETES SCREEN DIABETES SCREEN [facility] Start: 07-14-2024 DIABETES SCREEN DIABETES SCREEN [facility] Start: 06-18-2024 DIABETES SCREEN DIABETES SCREEN [facility] Start: 05-21-2024 DIABETES SCREEN DIABETES SCREEN [facility] Start: 11-03-2023 End: 11-03-2023 Nursing evaluation of patient and report 11/03/2023 11:00 AM EDT Nurse Visit Hematology/Oncology [address] [place] [id number] Hannah Lyons RN [address] [place], [place] [id number] Study Pt Hematology/Oncology Comment on above: Study Pt Start: 11-03-2023 End: 11-03-2023 [place] [address] [place] Comment on above: Study Pt Start: 08-11-2023 End: 08-11-2023 Nursing evaluation of patient and report 08/11/2023 11:00 AM EDT Nurse Visit Hematology/Oncology [address] [place] [address] Hannah Lyons RN [address] [place] [id number] Study Pt Hematology/Oncology Comment on above: Study Pt Start: 08-11-2023 End: 08-11-2023 ambulatory [place] [id number] [place] Comment on above: Study Pt Start: 07-14-2023 End: 07-14-2023 Nursing evaluation of patient and report 07/14/2023 9:30 AM EDT Nurse Visit Hematology/Oncology [address] [place] [address] Hannah Lyons, ALEXANDRO [address] [place] [address] STUDY PT Hematology/Oncology Comment on above: STUDY PT Start: 07-14-2023 End: 07-14-2023 ambulatory [place] 1 Draw Station Comment on above: STUDY PT Start: 05-19-2023 End: 05-20-2023 MISC SEND OUT TST 1 MISC SEND OUT TST 1 Lab Routine Polycythemia rubra vera (HCC) Expected: 05/19/2023, Expires: 05/20/2023 [facility] Work Phone: Comment on above: Expected: 05/19/2023 , Expires: 05/20/2023 Start: 02-14-2023 Behavioral Health Screening Behavioral Health Screening [facility] Start: 02-14-2023 Depression Assessment Depression Ass essment [facility] Start: 10-15-2022 Covid-19 Vaccine () Covid-19 Vaccine () [facility] Start: 10-15-2022 Influenza vaccination C [facility] Start: 10-07-2022 End: 10-08-2022 CBC W Auto Differential panel - Blood CBC + DIFF Lab STAT Polycythemia vera (HCC) Expected: 10/07/2022, Expires: 10/08/2022 [facility] Work Phone: Comment on above: Expected: 10/07/2022 , Expires: 10/08/2022 Start: 10-07-2022 End: 10-08-2022 CLINICAL TRIAL DRAW CLINICAL TRIAL DRAW Lab STAT Polycythemia vera (HCC) Expected: 10/07/2022, Expires: 10/08/2022 [facility] Work Phone: Comment on above: Expected: 10/07/2022 , Expires: 10/08/2022 Start: 10-07-2022 End: 10-08-2022 Comprehensive metabolic 2000 panel - Serum or Plasma COMP METABOLIC PANEL Lab STAT Polycythemia vera (HCC) Expected: 10/07/2022, Expires: 10/08/2022 [facility] Work Phone: Comment on above: Expected: 10/07/2022 , Expires: 10/08/2022 Start: 09-09-2022 End: 11-09-2022 CBC W Auto Differential panel - Blood CBC + DIFF Lab STAT Polycythemia vera (HCC) Expected: 09/09/2022 (Approximate), Expires: 11/09/2022 [facility] Work Phone: Comment on above: Expected: 09/09/2022 (Approximate), Expires: 11/09/2022 Start: 07-14-2022 Adult depression screening assessment DEPRESSION SCREENING [facility] Start: 05-20-2022 End: 07-20-2022 CBC W Auto Differential panel - Blood CBC + DIFF Lab STAT Polycythemia vera (HCC) Expected: 05/20/2022 (Approximate), Expires: 07/20/2022 [facility] Work Phone: Comment on above: Expected: 05/20/2022 (Approximate), Expires: 07/20/2022 Start: 04-22-2022 End: 04-23-2022 CBC W Auto Differential panel - Blood CBC + DIFF Lab STAT Polycythemia vera (HCC) Expected: 04/22/2022, Expires: 04/23/2022 [facility] Work Phone: Comment on above: Expected: 04/22/2022 , Expires: 04/23/2022 Start: 04-22-2022 End: 04-23-2022 CLINICAL TRIAL DRAW CLINICAL TRIAL DRAW Lab STAT Polycythemia vera (HCC) Expected: 04/22/2022, Expires: 04/23/2022 [facility] Work Phone: Comment on above: Expected: 04/22/2022 , Expires: 04/23/2022 Start: 04-22-2022 End: 04-23-2022 Comprehensive metabolic 2000 panel - Serum or Plasma COMP METABOLIC PANEL Lab STAT Polycythemia vera (HCC) Expected: 04/22/2022, Expires: 04/23/2022 [facility] Work Phone: Comment on above: Expected: 04/22/2022 , Expires: 04/23/2022 Start: 02-14-2022 DEPRESSION ASSESSMENT DEPRESSION ASS ESSMENT [facility] Start: 02-12-2022 Adult depression screening assessment DEPRESSION SCREENING [facility] Start: 01-28-2022 End: 01-29-2022 CBC W Auto Differential panel - Blood CBC + DIFF Lab STAT Polycythemia vera (HCC) Expected: 01/28/2022, Expires: 01/29/2022 [facility] Work Phone: Comment on above: Expected: 01/28/2022 , Expires: 01/29/2022 Start: 01-28-2022 End: 01-29-2022 CLINICAL TRIAL DRAW CLINICAL TRIAL DRAW Lab STAT Polycythemia vera (HCC) Expected: 01/28/2022, Expires: 01/29/2022 [facility] Work Phone: Comment on above: Expected: 01/28/2022 , Expires: 01/29/2022 Start: 01-28-2022 End: 01-29-2022 Comprehensive metabolic 2000 panel - Serum or Plasma COMP METABOLIC PANEL Lab STAT Polycythemia vera (HCC) Expected: 01/28/2022, Expires: 01/29/2022 [facility] Work Phone: Comment on above: Expected: 01/28/2022 , Expires: 01/29/2022 Start: 01-28-2022 End: 03-30-2022 Magnesium [Mass/volume] in Serum or Plasma MAGNESIUM BLD Lab Routine Polycythemia vera (HCC) Expected: 01/28/2022, Expires: 03/30/2022 [facility] Work Phone: Comment on above: Expected: 01/28/2022 , Expires: 03/30/2022 Start: 12-31-2021 End: 01-01-2022 CBC W Auto Differential panel - Blood CBC + DIFF Lab STAT Polycythemia vera (HCC) Expected: 12/31/2021, Expires: 01/01/2022 [facility] Work Phone: Comment on above: Expected: 12/31/2021 , Expires: 01/01/2022 Start: 12-31-2021 End: 01-01-2022 CLINICAL TRIAL DRAW CLINICAL TRIAL DRAW Lab STAT Polycythemia vera (HCC) Expected: 12/31/2021, Expires: 01/01/2022 [facility] Work Phone: Comment on above: Expected: 12/31/2021 , Expires: 01/01/2022 Start: 12-31-2021 End: 01-01-2022 Comprehensive metabolic 2000 panel - Serum or Plasma COMP METABOLIC PANEL Lab STAT Polycythemia vera (HCC) Expected: 12/31/2021, Expires: 01/01/2022 [facility] Work Phone: Comment on above: Expected: 12/31/2021 , Expires: 01/01/2022 Start: 11-05-2021 End: 11-06-2021 CBC W Auto Differential panel - Blood CBC + DIFF Lab STAT Polycythemia vera (HCC) Expected: 11/05/2021, Expires: 11/06/2021 [facility] Work Phone: Comment on above: Expected: 11/05/2021 , Expires: 11/06/2021 Start: 11-05-2021 End: 11-06-2021 CLINICAL TRIAL DRAW CLINICAL TRIAL DRAW Lab STAT Polycythemia vera (HCC) Expected: 11/05/2021, Expires: 11/06/2021 [facility] Work Phone: Comment on above: Expected: 11/05/2021 , Expires: 11/06/2021 Start: 11-05-2021 End: 11-06-2021 Comprehensive metabolic 2000 panel - Serum or Plasma COMP METABOLIC PANEL Lab STAT Polycythemia vera (HCC) Expected: 11/05/2021, Expires: 11/06/2021 [facility] Work Phone: Comment on above: Expected: 11/05/2021 , Expires: 11/06/2021 Start: 10-15-2021 Influenza vaccination INFLUENZA (#1) [facility] Start: 10-08-2021 End: 10-09-2021 CBC W Auto Differential panel - Blood [facility] Work Phone: Comment on above: Expected: 10/08/2021 , Expires: 10/09/2021 Start: 10-08-2021 End: 10-09-2021 CLINICAL TRIAL DRAW [facility] Work Phone: Comment on above: Expected: 10/08/2021 , Expires: 10/09/2021 Start: 10-08-2021 End: 10-09-2021 Comprehensive metabolic 2000 panel - Serum or Plasma [facility] Work Phone: Comment on above: Expected: 10/08/2021 , Expires: 10/09/2021 Start: 05-29-2021 COVID-19 VACCINE (4 - Booster for Pfizer series) COVID-19 VACCINE (4 - Booster for Pfizer series) [facility] Start: 03-25-2021 COVID-19 VACCINE (4 - Booster for Pfizer series) COVID-19 VACCINE (4 - Booster for Pfizer series) [facility] Start: 03-25-2021 COVID-19 VACCINE (4 - Pfizer series) COVID-19 VACCINE (4 - Pfizer series) [facility] Start: 02-14-2021 DEPRESSION ASSESSMENT DEPRESSION ASS ESSMENT [facility] Start: 10-15-2020 Influenza vaccination INFLUENZA (#1) [facility] Start: 2019 PROSTATE CANCER SCREENING DISCUSSION PROSTATE CANCER SCREENING DISCUSSION [facility] Start: 2014 Screening for malign ant neoplasm of colon [facility] Start: 2014 SHINGRIX VACCINE (1 of 2) SHINGRIX VACCINE (1 of 2) [facility] Start: 2009 COLOGUARD (FIT-DNA) COLOGUARD (FIT-D NA) [facility] Start: 2009 Colonoscopy COLONOSCOPY [facility] Start: 2009 COLORECTAL CANCER SCREENING COLORECTAL CANCER SCREENING [facility] Start: [address] COLONOGRAPHY [facility] Start: 2009 DIABETES SCREEN DIABETES SCREEN [facility] Start: 2009 FECAL OCCULT BLOOD FECAL OCCULT BLOO D [facility] Start: 2009 Screening for malign ant neoplasm of colon [facility] Start: 2009 SIGMOIDOSCOPY SIGMOIDOSCOPY [facility] Start: 1999 LIPID SCREEN LIPID SCREEN [facility] Start: 1983 SHINGRIX VACCINE (1 of 2) SHINGRIX VACCINE (1 of 2) [facility] Start: 1983 Urine microalbumin profile [facility] Start: 1982 HEPATITIS C SCREENING HEPATITIS C SC REENING [facility] Start: 1982 HIV SCREENING HIV SCREENING [facility] Start: 1982 HIV screening HIV Screening [facility] Start: 1976 Adult depression screening assessment DEPRESSION SCREENING [facility] Start: 1976 COVID-19 VACCINE (1) COVID-19 VACCIN E (1) [facility] Start: 1970 PNEUMOCOCCAL (1 - PCV) PNEUMOCOCCAL (1 - PCV) [facility] Start: 1970 Pneumococcal vaccination [facility] Start: 1964 HEPATITIS B (1 of 3 - 3-dose series) HEPATITIS B (1 of 3 - 3-dose series) [facility] Start: 1964 Hepatitis B Vaccine (1 of 3 - 3-dose series) Hepatitis B Vaccine (1 of 3 - 3-dose series) [facility] End: 03-24-2023 Ct abdomen w/o contrast material CT ABDOMEN WO IVCON Radiology Routine Splenomegaly, not elsewhere classified 1 Occurrences starting 02/22/2022 until 03/24/2023 [facility] Work Phone: Comment on above: 1 Occurrences starti ng 02/22/2022 until 03/24/2023 [facility] Problems Active Problems Problem Classification Problem Date Documented Da te Episodic/Chronic Acute bronchitis (1 source) Acute bronchitis due to other specified organisms Episodic Conditions associated with dizziness or vertigo (1 source) Dizziness; Translations: [Dizziness and giddiness] Episodic Essential hypertension (5 sources) Essential hypertension; Translations: [Essential (primary) hypertension] Chronic Neoplasms of unspecified nature or uncertain behavior (20 sources) Polycythemia vera (clinical); Translations: [Polycythemia vera] Onset: 12-16-2020 Chronic Other connective tissue disease (1 source) Separation of muscle (nontraumatic), other site Episodic Other gastrointestinal disorders (3 sources) Splenomegaly; Translations: [Splenomegaly, not elsewhere classified] Episodic Other gastrointestinal disorders (1 source) Splenomegaly, not elsewhere classified Episodic Other nervous system disorders (1 source) Cold feet; Translations: [Unspecified disturbances of skin sensation] 03-24-2023 Episodic Other nutritional; endocrine; and metabolic disorders (1 source) Overweight Episodic Other screening for suspected conditions (not mental disorders or infectious disease) (2 sources) Encounter for screening for malignant neoplasm of prostate; Translations: [ENC SCREEN MALIG NEOPLASM PROSTATE] Onset: 09-17-2021 Episodic Other upper respiratory disease (6 sources) Allergic rhinitis due to pollen; Translations: [Allergic rhinitis due to pollen] 05-31-2023 Chronic Other upper respiratory disease (2 sources) Allergic rhinitis due to pollen; Translations: [Allergic rhinitis due to pollen] Chronic Otitis media and related conditions (4 sources) Dysfunction of eustachian tube; Translations: [Unspecified Eustachian tube disorder, left ear] 07-19-2023 Episodic Residual codes; unclassified (4 sources) Obstructive sleep apnea syndrome; Translations: [Obstructive sleep apnea (adult) (pediatric)] Chronic Residual codes; unclassified (1 source) Obstructive sleep apnea (adult) (pediatric) Chronic Past or Other Problems Problem Classification Problem Date Documented Da te Episodic/Chronic Other hematologic conditions (4 sources) Secondary polycythemia; Translations: [SECONDARY POLYCYTHEMIA] Onset: 10-01-2020 Episodic Unclassified (1 source) Exposure to 2019 novel coronavirus; Translations: [Contact with and (suspected) exposure to COVID19] Procedures Date Procedure Procedure Detail Performing Clinician Start: 05-19-2023 Ct abdomen w/o contr ast material Annie Abreu APRN.CNP Work Phone: Start: 12-02-2022 Ct abdomen w/o contr ast material Bryce Ventura MD Work Phone: Start: 10-07-2022 Lipid 1996 panel - S gwendolyn or Plasma Hannah Lyons RN Work Phone: Start: 04-22-2022 Ct abdomen w/o contr ast material Meghan Graves CONFIGURATION MANAGEMENT ANALYST.CHAMFERING MACHINE OPERATOR Work Phone: Start: 09-11-[address] TONY RODRÍGUEZ Comment on above: Performed By: #### P SASC #### [facility] [address] [place] [address] Dr. Roxanne Paulino Start: 09-10-2021 Ct abdomen w/o contr ast material Elizabeth Shaun CONFIGURATION MANAGEMENT ANALYST.CHAMFERING MACHINE OPERATOR Work Phone: Start: 07-14-2021 Adult depression screening assessment Bryce Ventura MD Work Phone: Start: 02-12-2021 Adult depression screening assessment Meghan Graves CONFIGURATION MANAGEMENT ANALYST.CHAMFERING MACHINE OPERATOR Work Phone: Start: 09-29-[address] TONY RODRÍGUEZ Comment on above: Performed By: #### P SASC #### [facility] [address] [place] [address] Lou Brady Results Test Name Value Interpretation Reference Range Facility CBC W Auto Differential pane l (Bld)on 08-11-2023 Basophils (Bld) [#/Vol] 0.22 10*3/uL High <0.11 [facility] Comment on above: Order Comment: Speci men Type: BLOOD SPECIMENOrdering Facility: [facility] Address: [address] [place] [address] Performed By: #### 5 7021-8 ####[facility] [id number] [place] [address] [place] Basophils/100 WBC (Bld) 1.6 % Normal [facility] Comment on above: Order Comment: Speci men Type: BLOOD SPECIMENOrdering Facility: [facility] Address: [address] [place] [address] Performed By: #### 5 7021-8 ####[facility] [id number] [place] [address] [place] Differential cell count method Nom (Bld) Auto Normal [facility] Comment on above: Order Comment: Speci men Type: BLOOD SPECIMENOrdering Facility: [facility] Address: [address] [place] [address] Performed By: #### 5 7021-8 ####[facility] [id number] [place] [address] [place] Eosinophils (Bld) [#/Vol] 0.40 10*3/uL Normal <0.46 [facility] Comment on above: Order Comment: Speci men Type: BLOOD SPECIMENOrdering Facility: [facility] Address: [address] [place] [address] Performed By: #### 5 7021-8 ####[facility] [id number] [place] [address] [place] Eosinophils/100 WBC (Bld) 2.9 % Normal [facility] Comment on above: Order Comment: Speci men Type: BLOOD SPECIMENOrdering Facility: [facility] Address: [address] [place] [address] Performed By: #### 5 7021-8 ####[facility] [id number] [place] [address] [place] Erythrocyte distribution width (RBC) [Ratio] 20.6 % High 11.5-15.0 [facility] Comment on above: Order Comment: Speci men Type: BLOOD SPECIMENOrdering Facility: [facility] Address: [address] [place] [address] Performed By: #### 5 7021-8 ####[facility] [id number] [place] [address] [place] Hematocrit (Bld) [Volume fraction] 40.5 % Normal 39.0-51.0 [facility] Comment on above: Order Comment: Speci men Type: BLOOD SPECIMENOrdering Facility: [facility] Address: [address] [place] [address] Performed By: #### 5 7021-8 ####[facility] [id number] [place] [address] [place] Hemoglobin (Bld) [Mass/Vol] 10.4 g/dL Low 13.0-17.0 [facility] Comment on above: Order Comment: Speci men Type: BLOOD SPECIMENOrdering Facility: [facility] Address: [address] [place] [address] Performed By: #### 5 7021-8 ####[facility] [id number] [place] [address] [place] Immature granulocytes (Bld) [#/Vol] 0.34 10*3/uL High <0.10 [facility] Comment on above: Order Comment: Speci men Type: BLOOD SPECIMENOrdering Facility: [facility] Address: [address] [place] [address] Performed By: #### 5 7021-8 ####[facility] [id number] [place] [address] [place] Immature granulocytes/100 WBC (Bld) 2.5 % Normal [facility] Comment on above: Order Comment: Speci men Type: BLOOD SPECIMENOrdering Facility: [facility] Address: [address] [place] [address] Performed By: #### 5 7021-8 ####[facility] [id number] [place] [address] [place] Lymphocytes (Bld) [#/Vol] 1.03 10*3/uL Normal 1.00-4.00 [facility] Comment on above: Order Comment: Speci men Type: BLOOD SPECIMENOrdering Facility: [facility] Address: [address] [place] [address] Performed By: #### 5 7021-8 ####[facility] [id number] [place] [address] [place] Lymphocytes/100 WBC (Bld) 7.6 % Normal [facility] Comment on above: Order Comment: Speci men Type: BLOOD SPECIMENOrdering Facility: [facility] Address: [address] [place] [address] Performed By: #### 5 7021-8 ####[facility] [id number] [place] [address] [place] MCH (RBC) [Entitic mass] 18.4 pg Low 26.0-34.0 [facility] Comment on above: Order Comment: Speci men Type: BLOOD SPECIMENOrdering Facility: [facility] Address: [address] [place] [address] Performed By: #### 5 7021-8 ####[facility] [id number] [place] [address] [place] MCHC (RBC) [Mass/Vol] 25.7 g/dL Low 30.5-36.0 [facility] Comment on above: Order Comment: Speci men Type: BLOOD SPECIMENOrdering Facility: [facility] Address: [address] [place] [address] Performed By: #### 5 7021-8 ####[facility] [id number] [place] [address] [place] MCV (RBC) [Entitic vol] 71.7 fL Low 80.0-100.0 [facility] Comment on above: Order Comment: Speci men Type: BLOOD SPECIMENOrdering Facility: [facility] Address: [address] [place] [address] Performed By: #### 5 7021-8 ####[facility] [id number] [place] [address] [place] Monocytes (Bld) [#/Vol] 0.57 10*3/uL Normal <0.87 [facility] Comment on above: Order Comment: Speci men Type: BLOOD SPECIMENOrdering Facility: [facility] Address: [address] [place] [address] Performed By: #### 5 7021-8 ####[facility] [id number] [place] [address] [place] Monocytes/100 WBC (Bld) 4.2 % Normal [facility] Comment on above: Order Comment: Speci men Type: BLOOD SPECIMENOrdering Facility: [facility] Address: [address] [place] [address] Performed By: #### 5 7021-8 ####[facility] [id number] [place] [address] [place] Neutrophils (Bld) [#/Vol] 11.08 10*3/uL High 1.45-7.50 [facility] Comment on above: Order Comment: Speci men Type: BLOOD SPECIMENOrdering Facility: [facility] Address: [address] [place] [address] Performed By: #### 5 7021-8 ####[facility] [id number] [place] [address] [place] Neutrophils/100 WBC (Bld) 81.2 % Normal [facility] Comment on above: Order Comment: Speci men Type: BLOOD SPECIMENOrdering Facility: [facility] Address: [address] [place] [address] Performed By: #### 5 7021-8 ####[facility] [id number] [place] [address] [place] Nucleated RBC (Bld) [#/Vol] 0.02 10*3/uL High <0.01 [facility] Comment on above: Order Comment: Speci men Type: BLOOD SPECIMENOrdering Facility: [facility] Address: [address] [place] [address] Performed By: #### 5 7021-8 ####[facility] [id number] [place], [place] [id number] [place] Nucleated RBC/100 WBC (Bld) [Ratio] 0.1 /100 WBC Normal [facility] Comment on above: Order Comment: Speci men Type: BLOOD SPECIMENOrdering Facility: [facility] Address: [address] [place] [address] Performed By: #### 5 7021-8 ####[facility] [id number] [place] [address] [place] Platelet mean volume (Bld) [Entitic vol] 8.6 fL Low 9.0-12.7 [facility] Comment on above: Order Comment: Speci men Type: BLOOD SPECIMENOrdering Facility: [facility] Address: [address] [place] [address] Performed By: #### 5 7021-8 ####[facility] [id number] [place] [address] [place] Platelets (Bld) [#/Vol] 885 10*3/uL High 150-400 [facility] Comment on above: Order Comment: Speci men Type: BLOOD SPECIMENOrdering Facility: [facility] Address: [address] [place] [address] Performed By: #### 5 7021-8 ####[facility] [id number] [place] [address] [place] RBC (Bld) [#/Vol] 5.65 10*6/uL Normal 4.20-6.00 [facility] Comment on above: Order Comment: Speci men Type: BLOOD SPECIMENOrdering Facility: [facility] Address: [address] [place] [address] Performed By: #### 5 7021-8 ####[facility] [id number] [place] [address] [place] WBC (Bld) [#/Vol] 13.64 10*3/uL High 3.70-11.00 [facility] Comment on above: Order Comment: Speci men Type: BLOOD SPECIMENOrdering Facility: [facility] Address: [address] [place] [address] Performed By: #### 5 7021-8 ####[facility] [id number] [place] [address] [place] CNNURSEon 08-11-2023 CNNURSE [address] [facility] metabolic 2000 panelon 08-11-2023 Albumin [Mass/Vol] 4.2 g/dL Normal 3.9-4.9 [facility] Comment on above: Order Comment: Speci men Type: BLOOD SPECIMENOrdering Facility: [facility] Address: [address] [place] [address] Performed By: #### 2 4323-8 ####[facility] [id number] [place] [address] [place] ALP [Catalytic activity/Vol] 57 U/L Normal 38-113 [facility] Comment on above: Order Comment: Speci men Type: BLOOD SPECIMENOrdering Facility: [facility] Address: [address] [place] [address] Performed By: #### 2 4323-8 ####[facility] [id number] [place] [address] [place] ALT [Catalytic activity/Vol] 16 U/L Normal 10-54 [facility] Comment on above: Order Comment: Speci men Type: BLOOD SPECIMENOrdering Facility: [facility] Address: [address] [place] [address] Performed By: #### 2 4323-8 ####[facility] [id number] [place] [address] [place] Anion gap [Moles/Vol] 8 mmol/L Normal 8-15 [facility] Comment on above: Order Comment: Speci men Type: BLOOD SPECIMENOrdering Facility: [facility] Address: [address] [place] [address] Performed By: #### 2 4323-8 ####[facility] [id number] [place] [address] [place] AST [Catalytic activity/Vol] 22 U/L Normal 14-40 [facility] Comment on above: Order Comment: Speci men Type: BLOOD SPECIMENOrdering Facility: [facility] Address: [address] [place] [address] Performed By: #### 2 4323-8 ####[facility] [id number] [place] [address] [place] Bilirubin [Mass/Vol] 0.5 mg/dL Normal 0.2-1.3 [facility] Comment on above: Order Comment: Speci men Type: BLOOD SPECIMENOrdering Facility: [facility] Address: [address] [place] [address] Performed By: #### 2 4323-8 ####[facility] [id number] [place] [address] [place] Calcium [Mass/Vol] 8.9 mg/dL Normal 8.5-10.2 [facility] Comment on above: Order Comment: Speci men Type: BLOOD SPECIMENOrdering Facility: [facility] Address: [address] [place] [address] Performed By: #### 2 4323-8 ####[facility] [id number] [place] [address] [place] Chloride [Moles/Vol] 105 mmol/L Normal 98-107 [facility] Comment on above: Order Comment: Speci men Type: BLOOD SPECIMENOrdering Facility: [facility] Address: [address] [place] [address] Performed By: #### 2 4323-8 ####[facility] [id number] [place] [address] [place] CO2 [Moles/Vol] 27 mmol/L Normal 22-30 [facility] Comment on above: Order Comment: Speci men Type: BLOOD SPECIMENOrdering Facility: [facility] Address: [address] [place] [address] Performed By: #### 2 4323-8 ####[facility] [id number] [place] [address] [place] Creatinine [Mass/Vol] 0.98 mg/dL Normal 0.73-1.22 [facility] Comment on above: Order Comment: Speci men Type: BLOOD SPECIMENOrdering Facility: [facility] Address: [address] [place] [address] Performed By: #### 2 4323-8 ####[facility] [id number] [address] [place] OF [facility] Creatinine and Glomerular filtration rate.predicted panel (S/P/Bld) 89 mL/min/1.73m??? Normal >=60 [facility] Comment on above: Order Comment: Speci men Type: BLOOD SPECIMENOrdering Facility: [facility] Address: [address] [place] [address] Result Comment: Romi mated Glomerular Filtration Rate (eGFR) is calculated using the 2020 CKD-EPI creatinine equation. This equation utilizes serum creatinine, sex, and age as parameters. The creatinine assay has traceable calibration to isotope dilution-mass spectrometry. Refer to KDIGO guidelines for clinical interpretation. In patients with unstable renal function, e.g. those with acute kidney injury, the eGFR may not accurately reflect actual GFR. Performed By: #### 2 4323-8 ####[facility] [id number] [place] [address] [place] Glucose [Mass/Vol] 75 mg/dL Normal 74-99 [facility] Comment on above: Order Comment: Speci men Type: BLOOD SPECIMENOrdering Facility: [facility] Address: [address] [place] [address] Result Comment: The [place] Diabetes [employer] (ADA) provides guidance for cutoff values for fasting glucose and random glucose. The ADA defines fasting as no caloric intake for at least 8 hours. Fasting plasma glucose results between 100 to 125 mg/dL indicate increased risk for diabetes (prediabetes).Fasting plasma glucose results greater than or equal to 126 mg/dL meet the criteria for diagnosis of diabetes. In the absence of unequivocal hyperglycemia, results should be confirmed by repeat testing. In a patient with classic symptoms of hyperglycemia or hyperglycemic crisis, random plasma glucose results greater than or equal to 200 mg/dL meet the criteria for diagnosis of diabetes.Reference: Standards of Medical Care in Diabetes 2016, [place] [employer]. Diabetes Care. 2016.39(Suppl 1). Performed By: #### 2 4323-8 ####[facility] [id number] [place] [address] [place] Potassium [Moles/Vol] 4.2 mmol/L Normal 3.7-5.1 [facility] Comment on above: Order Comment: Speci men Type: BLOOD SPECIMENOrdering Facility: [facility] Address: [address] [place] [address] Performed By: #### 2 4323-8 ####[facility] [id number] [place] [address] [place] Protein [Mass/Vol] 6.4 g/dL Normal 6.3-8.0 [facility] Comment on above: Order Comment: Speci men Type: BLOOD SPECIMENOrdering Facility: [facility] Address: [address] [place] [address] Performed By: #### 2 4323-8 ####[facility] [id number] [place] [address] [place] Sodium [Moles/Vol] 140 mmol/L Normal 136-144 [facility] Comment on above: Order Comment: Speci men Type: BLOOD SPECIMENOrdering Facility: [facility] Address: [address] [place] [address] Performed By: #### 2 4323-8 ####[facility] [id number] [address] [place] Urea nitrogen [Mass/Vol] 21 mg/dL Normal 9-24 [facility] Comment on above: Order Comment: Speci men Type: BLOOD SPECIMENOrdering Facility: [facility] Address: [address] [place] [address] Performed By: #### 2 4323-8 ####[facility] [id number] [address] Automated basophil %on 07-13 Basophils/100 WBC (Bld) 1.7 % Normal [facility] Comment on above: Order Comment: Speci men Type: BLOOD SPECIMENOrdering Facility: [facility] Address: [address] [place] [address] Performed By: #### 5 7021-8 ####[facility] [id number] [address] Automated basophil counton 0 07-14-2023 Basophils (Bld) [#/Vol] 0.23 10*3/uL High <0.11 [facility] Comment on above: Order Comment: Speci men Type: BLOOD SPECIMENOrdering Facility: [facility] Address: [address] [place] [address] Performed By: #### 5 7021-8 ####[facility] [id number] [address] Automated blood monocyte cou nton 07-14-2023 Monocytes (Bld) [#/Vol] 0.59 10*3/uL Normal <0.87 [facility] Comment on above: Order Comment: Speci men Type: BLOOD SPECIMENOrdering Facility: [facility] Address: [address] [place] [address] Performed By: #### 5 7021-8 ####[facility] [id number] [address] Automated eosinophil %on Eosinophils/100 WBC (Bld) 2.7 % Normal [facility] Comment on above: Order Comment: Speci men Type: BLOOD SPECIMENOrdering Facility: [facility] Address: [address] [place] [address] Performed By: #### 5 7021-8 ####[facility] [id number] [address] Automated monocyte %on 07-13 Monocytes/100 WBC (Bld) 4.5 % Normal [facility] Comment on above: Order Comment: Speci men Type: BLOOD SPECIMENOrdering Facility: [facility] Address: [address] [place] [address] Performed By: #### 5 7021-8 ####[facility] [id number] [place] [address] [place] Automated neutrophil %on Neutrophils/100 WBC (Bld) 80.3 % Normal [facility] Comment on above: Order Comment: Speci men Type: BLOOD SPECIMENOrdering Facility: [facility] Address: [address] [place] [address] Performed By: #### 5 7021-8 ####[facility] [id number] [place] [address] [place] Blood manual differential co mment interpretation narrativeon 07-14-2023 Manual differential comment Van (Bld) [Interp] Auto [facility] CBC W Auto Diff Bldon 2023 Eosinophils (Bld) [#/Vol] 0.36 10*3/uL Normal <0.46 [facility] Comment on above: Order Comment: Speci men Type: BLOOD SPECIMENOrdering Facility: [facility] Address: [address] [place] [address] Performed By: #### 5 7021-8 ####[facility] [id number] [place] [address] [place] Immature granulocytes (Bld) [#/Vol] 0.29 10*3/uL High <0.10 [facility] Comment on above: Order Comment: Speci men Type: BLOOD SPECIMENOrdering Facility: [facility] Address: [address] [place] [address] Performed By: #### 5 7021-8 ####[facility] [id number] [place] [address] [place] Immature granulocytes/100 WBC (Bld) 2.2 % Normal [facility] Comment on above: Order Comment: Speci men Type: BLOOD SPECIMENOrdering Facility: [facility] Address: [address] [place] [address] Performed By: #### 5 7021-8 ####[facility] [id number] [place] [address] [place] CBC W Auto Differential pane l (Bld)on 07-14-2023 Differential cell count method Nom (Bld) Auto Normal [facility] Comment on above: Order Comment: Speci men Type: BLOOD SPECIMENOrdering Facility: [facility] Address: [address] [place] [address] Performed By: #### 5 7021-8 ####[facility] [id number] [place] [address] [place] Nucleated RBC/100 WBC (Bld) [Ratio] 0.0 /100 WBC Normal [facility] Comment on above: Order Comment: Speci men Type: BLOOD SPECIMENOrdering Facility: [facility] Address: [address] [place] [address] Performed By: #### 5 7021-8 ####[facility] [id number] [place] [address] [place] WBC (Bld) [#/Vol] 13.21 10*3/uL High 3.70-11.00 [facility] Comment on above: Order Comment: Speci men Type: BLOOD SPECIMENOrdering Facility: [facility] Address: [address] [place] [address] Performed By: #### 5 7021-8 ####[facility] [id number] [place] [address] [place] CNNURSEon 07-14-2023 CNNURSE Normal [facility] CNOVSPon 07-14-2023 CNOVSP Normal [facility] Comp Metab 2000 Pnl SerPlon 07-14-2023 Albumin [Mass/Vol] 4.4 g/dL Normal 3.9-4.9 [facility] Comment on above: Order Comment: Speci men Type: BLOOD SPECIMENOrdering Facility: [facility] Address: [address] [place] [address] Performed By: #### 1 9123-9, 39850-5 ####[facility]IA [id number] [place] [address] [place] ALP [Catalytic activity/Vol] 57 U/L Normal 38-113 [facility] Comment on above: Order Comment: Speci men Type: BLOOD SPECIMENOrdering Facility: [facility] Address: [address] [place] [address] Performed By: #### 1 9123-9, 18722-5 ####[facility] [id number] [place] [address] [place] ALT [Catalytic activity/Vol] 20 U/L Normal 10-54 [facility] Comment on above: Order Comment: Speci men Type: BLOOD SPECIMENOrdering Facility: [facility] Address: [address] [place] [address] Performed By: #### 1 9123-9, 27464-3 ####[facility] LABCLIA [id number] [place] [address] [place] AST [Catalytic activity/Vol] 23 U/L Normal 14-40 [facility] Comment on above: Order Comment: Speci men Type: BLOOD SPECIMENOrdering Facility: [facility] Address: [address] [place] [address] Performed By: #### 1 9123-9, 16104-0 ####[facility] LABCLIA [id number] [place] [address] [place] Bilirubin [Mass/Vol] 0.6 mg/dL Normal 0.2-1.3 [facility] Comment on above: Order Comment: Speci men Type: BLOOD SPECIMENOrdering Facility: [facility] Address: [address] [place] [address] Performed By: #### 1 9123-9, 65150-5 ####[facility] LABCLIA [id number] [place] [address] [place] Calcium [Mass/Vol] 8.9 mg/dL Normal 8.5-10.2 [facility] Comment on above: Order Comment: Speci men Type: BLOOD SPECIMENOrdering Facility: [facility] Address: [address] [place] [address] Performed By: #### 1 9123-9, ####[facility] LABCLIA [id number] [place] [address] [place] Chloride [Moles/Vol] 105 mmol/L Normal 97-105 [facility] Comment on above: Order Comment: Speci men Type: BLOOD SPECIMENOrdering Facility: [facility] Address: [address] [place] [address] Performed By: #### 1 9123-9, 34106-2 ####[facility] LABCLIA [id number] [place] [address] [place] CO2 [Moles/Vol] 26 mmol/L Normal 22-30 [facility] Comment on above: Order Comment: Speci men Type: BLOOD SPECIMENOrdering Facility: [facility] Address: [address] [place] [address] Performed By: #### 1 9123-9, 52732-5 ####[facility] LABCLIA [id number] [address] [address] [place] Creatinine [Mass/Vol] 0.96 mg/dL Normal 0.73-1.22 [facility] Comment on above: Order Comment: Abhishek flores Type: BLOOD SPECIMENOrdering Facility: [facility] Address: [address] [place] [address] Performed By: #### 1 9123-9, 11672-8 ####[facility] LABCLIA [id number] [place] [id number] [place] Glucose [Mass/Vol] 88 mg/dL Normal 74-99 [facility] Comment on above: The [place] Diab[employer] s Association (ADA) provides guidance for cutoff values for fasting glucose and random glucose. The ADA defines fasting as no caloric intake for at least 8 hours. Fasting plasma glucose results between 100 to 125 mg/dL indicate increased risk for diabetes (prediabetes).Fasting plasma glucose results greater than or equal to 126 mg/dL meet the criteria for diagnosis of diabetes. In the absence of unequivocal hyperglycemia, results should be confirmed by repeat testing. In a patient with classic symptoms of hyperglycemia or hyperglycemic crisis, random plasma glucose results greater than or equal to 200 mg/dL meet the criteria for diagnosis of diabetes.Reference: Standards of Medical Care in Diabetes 2016, [place] [employer]. Diabetes Care. 2016.39(Suppl 1). Order Comment: Alejandrodylon flores Type: BLOOD SPECIMENOrdering Facility: [facility] Address: [address] [place] [address] Result Comment: The [place] Diabetes [employer] (ADA) provides guidance for cutoff values for fasting glucose and random glucose. The ADA defines fasting as no caloric intake for at least 8 hours. Fasting plasma glucose results between 100 to 125 mg/dL indicate increased risk for diabetes (prediabetes).Fasting plasma glucose results greater than or equal to 126 mg/dL meet the criteria for diagnosis of diabetes. In the absence of unequivocal hyperglycemia, results should be confirmed by repeat testing. In a patient with classic symptoms of hyperglycemia or hyperglycemic crisis, random plasma glucose results greater than or equal to 200 mg/dL meet the criteria for diagnosis of diabetes.Reference: Standards of Medical Care in Diabetes 2016, [place] [employer]. Diabetes Care. 2016.39(Suppl 1). Performed By: #### 1 9123-9, 59637-5 ####[facility] LABCLIA [id number] [place] [address] [place] Potassium [Moles/Vol] 4.2 mmol/L Normal 3.7-5.1 [facility] Comment on above: Order Comment: Speci men Type: BLOOD SPECIMENOrdering Facility: [facility] Address: [address] [place] [address] Performed By: #### 1 9123-9, 13769-8 ####[facility] LABIA [id number] [place] [address] [place] Sodium [Moles/Vol] 140 mmol/L Normal 136-144 [facility] Comment on above: Order Comment: Speci men Type: BLOOD SPECIMENOrdering Facility: [facility] Address: [address] [place] [address] Performed By: #### 1 9123-9, 28306-6 ####[facility]IA [id number] [place] [address] [place] Urea nitrogen [Mass/Vol] 18 mg/dL Normal 9-24 [facility] Comment on above: Order Comment: Speci men Type: BLOOD SPECIMENOrdering Facility: [facility] Address: [address] [place] [address] Performed By: #### 1 9123-9, 85784-9 ####[facility]IA [id number] [place] [id number] [place] Comprehensive metabolic 2000 panelon 07-14-2023 Creatinine and Glomerular filtration rate.predicted panel (S/P/Bld) 91 mL/min/1.73m??? Normal >=60 [facility] Comment on above: Order Comment: Speci men Type: BLOOD SPECIMENOrdering Facility: [facility] Address: [address] [place] [address] Result Comment: Romi mated Glomerular Filtration Rate (eGFR) is calculated using the 2020 CKD-EPI creatinine equation. This equation utilizes serum creatinine, sex, and age as parameters. The creatinine assay has traceable calibration to isotope dilution-mass spectrometry. Refer to KDIGO guidelines for clinical interpretation. In patients with unstable renal function, e.g. those with acute kidney injury, the eGFR may not accurately reflect actual GFR. Performed By: #### 1 9123-9, 74299-9 ####[facility] [id number] [place] [address] [place] Erythrocyte distribution wid th [Ratio] by Automated counton 07-14-2023 Erythrocyte distribution width (RBC) [Ratio] 20.4 % High 11.5-15.0 [facility] Comment on above: Order Comment: Speci men Type: BLOOD SPECIMENOrdering Facility: [facility] Address: [address] [place] [address] Performed By: #### 5 7021-8 ####[facility] [id number] [place] [address] [place] Erythrocytes [#/volume] in B lood by Automated counton 07-14-2023 RBC (Bld) [#/Vol] 5.65 10*6/uL Normal 4.20-6.00 [facility] Comment on above: Order Comment: Speci men Type: BLOOD SPECIMENOrdering Facility: [facility] Address: [address] [place] [address] Performed By: #### 5 7021-8 ####[facility] [id number] [address] [place] Hematocrit [Volume Fraction] of Blood by Automated counton 07-14-2023 Hematocrit (Bld) [Volume fraction] 40.9 % Normal 39.0-51.0 [facility] Comment on above: Order Comment: Speci men Type: BLOOD SPECIMENOrdering Facility: [facility] Address: [address] [place] [address] Performed By: #### 5 7021-8 ####[facility] [id number] [place] [address] [place] Hemoglobin [Mass/volume] in Bloodon 07-14-2023 Hemoglobin (Bld) [Mass/Vol] 10.6 g/dL Low 13.0-17.0 [facility] Comment on above: Order Comment: Speci men Type: BLOOD SPECIMENOrdering Facility: [facility] Address: [address] [place] [address] Performed By: #### 5 7021-8 ####[facility] [id number] [place] [address] [place] Leukocytes [#/volume] correc mary for nucleated erythrocytes in Blood by Automated counon 07-14-2023 WBC corrected for nucl RBC Auto (Bld) [#/Vol] 13.21 k/uL 3.70-11.00 [facility] Lymphocytes [#/volume] in Bl ood by Automated counton 07-14-2023 Lymphocytes (Bld) [#/Vol] 1.14 10*3/uL Normal 1.00-4.00 [facility] Comment on above: Order Comment: Speci men Type: BLOOD SPECIMENOrdering Facility: [facility] Address: [address] [place] [address] Performed By: #### 5 7021-8 ####[facility] [id number] [place] [address] [place] Lymphocytes/100 leukocytes i n Blood by Automated counton 07-14-2023 Lymphocytes/100 WBC (Bld) 8.6 % Normal [facility] Comment on above: Order Comment: Speci men Type: BLOOD SPECIMENOrdering Facility: [facility] Address: [address] [place] [address] Performed By: #### 5 7021-8 ####[facility] [id number] [place] [address] [place] MAGNESIUMon 07-14-2023 Magnesium [Mass/Vol] 2.3 mg/dL 1.7 - 2.3 mg/dL [facility] MCH [Entitic mass] by Automa mary counton 07-14-2023 MCH (RBC) [Entitic mass] 18.8 pg Low 26.0-34.0 [facility] Comment on above: Order Comment: Speci men Type: BLOOD SPECIMENOrdering Facility: [facility] Address: [address] [place] [address] Performed By: #### 5 7021-8 ####[facility] [id number] [place] [address] [place] MCHC [Mass/volume] by Automa mary counton 07-14-2023 MCHC (RBC) [Mass/Vol] 25.9 g/dL Low 30.5-36.0 [facility] Comment on above: Order Comment: Speci men Type: BLOOD SPECIMENOrdering Facility: [facility] Address: [address] [place] [address] Performed By: #### 5 7021-8 ####[facility] [id number] [place] [address] [place] MCV [Entitic volume] by Auto mated counton 07-14-2023 MCV (RBC) [Entitic vol] 72.4 fL Low 80.0-100.0 [facility] Comment on above: Order Comment: Speci men Type: BLOOD SPECIMENOrdering Facility: [facility] Address: [address] [place] [address] Performed By: #### 5 7021-8 ####[facility] [id number] [place] [address] [place] Magnesium SerPl-mCncon 07-13 Magnesium [Mass/Vol] 2.3 mg/dL Normal 1.7-2.3 [facility] Comment on above: Order Comment: Speci men Type: BLOOD SPECIMENOrdering Facility: [facility] Address: [address] [place] [address] Performed By: #### 1 9123-9, 38725-4 ####[facility] [id number] [place] [address] [place] Magnesium [Mass/Vol]on 07-13 Interpretation and review of laboratory results Normal [facility] Neutrophils [#/volume] in Bl ood by Automated counton 07-14-2023 Neutrophils (Bld) [#/Vol] 10.60 10*3/uL High 1.45-7.50 [facility] Comment on above: Order Comment: Speci men Type: BLOOD SPECIMENOrdering Facility: [facility] Address: [address] [place] [address] Performed By: #### 5 7021-8 ####[facility] [id number] [address] [place] No Panel Informationon 07-13 Estimated GFR (CKD-EPI) 91 mL/min/1.73m??? >=60 [facility] Comment on above: Estimated Glomerular Filtration Rate (eGFR) is calculated using the 2020 CKD-EPI creatinine equation. This equation utilizes serum creatinine, sex, and age as parameters. The creatinine assay has traceable calibration to isotope dilution-mass spectrometry. Refer to KDIGO guidelines for clinical interpretation. In patients with unstable renal function, e.g. those with acute kidney injury, the eGFR may not accurately reflect actual GFR. Nucleated erythrocytes [#/vo lume] in Blood by Automated counton 07-14-2023 Nucleated RBC (Bld) [#/Vol] 10*3/uL Normal <0.01 [facility] Comment on above: Order Comment: Speci men Type: BLOOD SPECIMENOrdering Facility: [facility] Address: [address] [place] [address] Performed By: #### 5 7021-8 ####[facility] [id number] [address] [place] Nucleated erythrocytes [Pres ence] in Blood by Automated counton 07-14-2023 Nucleated RBC Auto Ql (Bld) 0.0 /100{WBC} [facility] Platelet mean volume [Entiti c volume] in Blood by Automated counton 07-14-2023 Platelet mean volume (Bld) [Entitic vol] 8.7 fL Low 9.0-12.7 [facility] Comment on above: Order Comment: Speci men Type: BLOOD SPECIMENOrdering Facility: [facility] Address: [address] [place] [address] Performed By: #### 5 7021-8 ####[facility] [id number] [place] [address] [place] Platelets [#/volume] in Bloo d by Automated counton 07-14-2023 Platelets (Bld) [#/Vol] 913 10*3/uL High 150-400 [facility] Comment on above: Order Comment: Speci men Type: BLOOD SPECIMENOrdering Facility: [facility] Address: [address] [place] [address] Performed By: #### 5 7021-8 ####[facility] [id number] [place] [address] [place] Protein [Mass/volume] in Ser um or Plasmaon 07-14-2023 Protein [Mass/Vol] 6.4 g/dL Normal 6.3-8.0 [facility] Comment on above: Order Comment: Speci men Type: BLOOD SPECIMENOrdering Facility: [facility] Address: [address] [place] [address] Performed By: #### 1 9123-9, 09676-5 ####[facility] [id number] [place] [address] [place] Serum or plasma anion gap de terminationon 07-14-2023 Anion gap [Moles/Vol] 9 mmol/L Normal 9-18 [facility] Comment on above: Order Comment: Speci men Type: BLOOD SPECIMENOrdering Facility: [facility] Address: [address] [place] [address] Performed By: #### 1 9123-9, 02375-6 ####[facility] [id number] [address] [place] Automated basophil %on 06-15 Basophils/100 WBC (Bld) 0.0 % Normal [facility] Comment on above: Order Comment: Speci men Type: BLOOD SPECIMENOrdering Facility: [facility] Address: [address] [place] [address] Performed By: #### 5 7021-8 ####[facility] [id number] [address] [place] Automated basophil counton 0 06-16-2023 Basophils (Bld) [#/Vol] 0.00 10*3/uL Normal <0.11 [facility] Comment on above: Order Comment: Speci men Type: BLOOD SPECIMENOrdering Facility: [facility] Address: [address] [place] [address] Performed By: #### 5 7021-8 ####[facility] [id number] [address] [place] Automated blood monocyte cou nton 06-16-2023 Monocytes (Bld) [#/Vol] 0.70 10*3/uL Normal <0.87 [facility] Comment on above: Order Comment: Speci men Type: BLOOD SPECIMENOrdering Facility: [facility] Address: [address] [place] [address] Performed By: #### 5 7021-8 ####[facility] [id number] [address] [place] Automated eosinophil %on Eosinophils/100 WBC (Bld) 5.0 % Normal [facility] Comment on above: Order Comment: Speci men Type: BLOOD SPECIMENOrdering Facility: [facility] Address: [address] [place] [address] Performed By: #### 5 7021-8 ####[facility] [id number] [address] Automated monocyte %on 06-15 Monocytes/100 WBC (Bld) 5.0 % Normal [facility] Comment on above: Order Comment: Speci men Type: BLOOD SPECIMENOrdering Facility: [facility] Address: [address] [place] [address] Performed By: #### 5 7021-8 ####[facility] [id number] [place] [address] [place] Automated neutrophil %on Neutrophils/100 WBC (Bld) 80.0 % Normal [facility] Comment on above: Order Comment: Speci men Type: BLOOD SPECIMENOrdering Facility: [facility] Address: [address] [place] [address] Performed By: #### 5 7021-8 ####[facility] [id number] [place] [address] [place] Blood manual differential co mment interpretation narrativeon 06-16-2023 Manual differential comment Van (Bld) [Interp] Manual [facility] CBC W Auto Diff Bldon 2023 Eosinophils (Bld) [#/Vol] 0.70 10*3/uL High <0.46 [facility] Comment on above: Order Comment: Speci men Type: BLOOD SPECIMENOrdering Facility: [facility] Address: [address] [place] [address] Performed By: #### 5 7021-8 ####[facility] [id number] [place] [address] [place] RBC Fragments Few Abnormal None Seen [facility] Comment on above: Order Comment: Speci men Type: BLOOD SPECIMENOrdering Facility: [facility] Address: [address] [place] [address] Performed By: #### 5 7021-8 ####[facility] [id number] [place], [place] [address] [place] CBC W Auto Differential pane l (Bld)on 06-16-2023 Differential cell count method Nom (Bld) Manual Normal [facility] Comment on above: Order Comment: Speci men Type: BLOOD SPECIMENOrdering Facility: [facility] Address: [address] [place] [address] Performed By: #### 5 7021-8 ####[facility] [id number] [place] [address] [place] Nucleated RBC/100 WBC (Bld) [Ratio] 0.0 /100 WBC Normal [facility] Comment on above: Order Comment: Speci men Type: BLOOD SPECIMENOrdering Facility: [facility] Address: [address] [place] [address] Performed By: #### 5 7021-8 ####[facility] [id number] [place] [address] [place] Platelets Estimate (Bld) [#/Vol] Increased Normal [facility] Comment on above: Order Comment: Speci men Type: BLOOD SPECIMENOrdering Facility: [facility] Address: [address] [place] [address] Performed By: #### 5 7021-8 ####[facility] [id number] [place] [address] [place] RED CELL MORPH Reviewed: see result s of individual morphologies Normal [facility] Comment on above: Order Comment: Speci men Type: BLOOD SPECIMENOrdering Facility: [facility] Address: [address] [place] [address] Performed By: #### 5 7021-8 ####[facility] [id number] [place] [address] [place] WBC (Bld) [#/Vol] 13.99 10*3/uL High 3.70-11.00 [facility] Comment on above: Order Comment: Speci men Type: BLOOD SPECIMENOrdering Facility: [facility] Address: [address] [place] [address] Performed By: #### 5 7021-8 ####[facility] [id number] [place] [address] [place] CNNURSEon 06-16-2023 CNNURSE Normal [facility] CNOVSPon 06-16-2023 CNOVSP Normal [facility] Comp Metab 2000 Pnl SerPlon 06-16-2023 Albumin [Mass/Vol] 4.4 g/dL Normal 3.9-4.9 [facility] Comment on above: Order Comment: Speci men Type: BLOOD SPECIMENOrdering Facility: [facility] Address: [address] [place] [address] Performed By: #### 2 4323-8 ####[facility] [id number] [place] [address] [place] ALP [Catalytic activity/Vol] 57 U/L Normal 38-113 [facility] Comment on above: Order Comment: Speci men Type: BLOOD SPECIMENOrdering Facility: [facility] Address: [address] [place] [address] Performed By: #### 2 4323-8 ####[facility] [id number] [place] [address] [place] ALT [Catalytic activity/Vol] 17 U/L Normal 10-54 [facility] Comment on above: Order Comment: Speci men Type: BLOOD SPECIMENOrdering Facility: [facility] Address: [address] [place] [address] Performed By: #### 2 4323-8 ####[facility] [id number] [place] [address] [place] AST [Catalytic activity/Vol] 19 U/L Normal 14-40 [facility] Comment on above: Order Comment: Speci men Type: BLOOD SPECIMENOrdering Facility: [facility] Address: [address] [place], [place] [address] Performed By: #### 2 4323-8 ####[facility] [id number] [place] [address] [place] Bilirubin [Mass/Vol] 0.6 mg/dL Normal 0.2-1.3 [facility] Comment on above: Order Comment: Speci men Type: BLOOD SPECIMENOrdering Facility: [facility] Address: [address] [place] [address] Performed By: #### 2 4323-8 ####[facility] [id number] [place] [address] [place] Calcium [Mass/Vol] 8.9 mg/dL Normal 8.5-10.2 [facility] Comment on above: Order Comment: Speci men Type: BLOOD SPECIMENOrdering Facility: [facility] Address: [address] [place] [address] Performed By: #### 2 4323-8 ####[facility] [id number] [place] [address] [place] Chloride [Moles/Vol] 105 mmol/L Normal 97-105 [facility] Comment on above: Order Comment: Speci men Type: BLOOD SPECIMENOrdering Facility: [facility] Address: [address] [place] [address] Performed By: #### 2 4323-8 ####[facility] [id number] [place] [address] [place] CO2 [Moles/Vol] 27 mmol/L Normal 22-30 [facility] Comment on above: Order Comment: Speci men Type: BLOOD SPECIMENOrdering Facility: [facility] Address: [address] [place] [address] Performed By: #### 2 4323-8 ####[facility] [id number] [place] [address] [place] Creatinine [Mass/Vol] 1.03 mg/dL Normal 0.73-1.22 [facility] Comment on above: Order Comment: Alejandrodylon flores Type: BLOOD SPECIMENOrdering Facility: [facility] Address: [address] [place] [address] Performed By: #### 2 4323-8 ####[facility] [id number] [place] [address] [place] Glucose [Mass/Vol] 94 mg/dL Normal 74-99 [facility] Comment on above: The [place] Diab[employer] s Association (ADA) provides guidance for cutoff values for fasting glucose and random glucose. The ADA defines fasting as no caloric intake for at least 8 hours. Fasting plasma glucose results between 100 to 125 mg/dL indicate increased risk for diabetes (prediabetes).Fasting plasma glucose results greater than or equal to 126 mg/dL meet the criteria for diagnosis of diabetes. In the absence of unequivocal hyperglycemia, results should be confirmed by repeat testing. In a patient with classic symptoms of hyperglycemia or hyperglycemic crisis, random plasma glucose results greater than or equal to 200 mg/dL meet the criteria for diagnosis of diabetes.Reference: Standards of Medical Care in Diabetes 2016, [place] [employer]. Diabetes Care. 2016.39(Suppl 1). Order Comment: Abhishek flores Type: BLOOD SPECIMENOrdering Facility: [facility] Address: [address] [place] [address] Result Comment: The [place] Diabetes Association (ADA) provides guidance for cutoff values for fasting glucose and random glucose. The ADA defines fasting as no caloric intake for at least 8 hours. Fasting plasma glucose results between 100 to 125 mg/dL indicate increased risk for diabetes (prediabetes).Fasting plasma glucose results greater than or equal to 126 mg/dL meet the criteria for diagnosis of diabetes. In the absence of unequivocal hyperglycemia, results should be confirmed by repeat testing. In a patient with classic symptoms of hyperglycemia or hyperglycemic crisis, random plasma glucose results greater than or equal to 200 mg/dL meet the criteria for diagnosis of diabetes.Reference: Standards of Medical Care in Diabetes 2016, [place] [employer]. Diabetes Care. 2016.39(Suppl 1). Performed By: #### 2 4323-8 ####[facility] [id number] [place] [address] [place] Potassium [Moles/Vol] 4.8 mmol/L Normal 3.7-5.1 [facility] Comment on above: Order Comment: Speci men Type: BLOOD SPECIMENOrdering Facility: [facility] Address: [address] [place] [address] Performed By: #### 2 4323-8 ####[facility] [id number] [place] [address] [place] Sodium [Moles/Vol] 140 mmol/L Normal 136-144 [facility] Comment on above: Order Comment: Speci men Type: BLOOD SPECIMENOrdering Facility: [facility] Address: [address] [place] [address] Performed By: #### 2 4323-8 ####[facility] [id number] [place] [address] [place] Urea nitrogen [Mass/Vol] 21 mg/dL Normal 9-24 [facility] Comment on above: Order Comment: Speci men Type: BLOOD SPECIMENOrdering Facility: [facility] Address: [address] [place] [address] Performed By: #### 2 4323-8 ####[facility] [id number] [place] [address] [place] Comprehensive metabolic 2000 panelon 06-16-2023 Creatinine and Glomerular filtration rate.predicted panel (S/P/Bld) 84 mL/min/1.73m??? Normal >=60 [facility] Comment on above: Order Comment: Speci men Type: BLOOD SPECIMENOrdering Facility: [facility] Address: [address] [place] [address] Result Comment: Romi mated Glomerular Filtration Rate (eGFR) is calculated using the 2020 CKD-EPI creatinine equation. This equation utilizes serum creatinine, sex, and age as parameters. The creatinine assay has traceable calibration to isotope dilution-mass spectrometry. Refer to KDIGO guidelines for clinical interpretation. In patients with unstable renal function, e.g. those with acute kidney injury, the eGFR may not accurately reflect actual GFR. Performed By: #### 2 4323-8 ####[facility] [id number] [place] [address] [place] Erythrocyte distribution wid th [Ratio] by Automated counton 06-16-2023 Erythrocyte distribution width (RBC) [Ratio] 20.7 % High 11.5-15.0 [facility] Comment on above: Order Comment: Speci men Type: BLOOD SPECIMENOrdering Facility: [facility] Address: [address] [place] [address] Performed By: #### 5 7021-8 ####[facility] [id number] [place] [address] [place] Erythrocytes [#/volume] in B lood by Automated counton 06-16-2023 RBC (Bld) [#/Vol] 5.80 10*6/uL Normal 4.20-6.00 [facility] Comment on above: Order Comment: Alejandroi sandra Type: BLOOD SPECIMENOrdering Facility: [facility] Address: [address] [place] [address] Performed By: #### 5 7021-8 ####[facility] [id number] [address] [place] Hematocrit [Volume Fraction] of Blood by Automated counton 06-16-2023 Hematocrit (Bld) [Volume fraction] 41.8 % Normal 39.0-51.0 [facility] Comment on above: Order Comment: Alejandroi sandra Type: BLOOD SPECIMENOrdering Facility: [facility] Address: [address] [place] [address] Performed By: #### 5 7021-8 ####[facility] [id number] [address] [place] Hemoglobin [Mass/volume] in Bloodon 06-16-2023 Hemoglobin (Bld) [Mass/Vol] 10.8 g/dL Low 13.0-17.0 [facility] Comment on above: Order Comment: Speci men Type: BLOOD SPECIMENOrdering Facility: [facility] Address: [address] [place] [address] Performed By: #### 5 7021-8 ####[facility] [id number] [place] [address] [place] Leukocytes [#/volume] correc mary for nucleated erythrocytes in Blood by Automated counon 06-16-2023 WBC corrected for nucl RBC Auto (Bld) [#/Vol] 13.99 k/uL 3.70-11.00 [facility] Lymphocytes [#/volume] in Bl ood by Automated counton 06-16-2023 Lymphocytes (Bld) [#/Vol] 1.40 10*3/uL Normal 1.00-4.00 [facility] Comment on above: Order Comment: Speci men Type: BLOOD SPECIMENOrdering Facility: [facility] Address: [address] [place] [address] Performed By: #### 5 7021-8 ####[facility] [id number] [place] [address] [place] Lymphocytes/100 leukocytes i n Blood by Automated counton 06-16-2023 Lymphocytes/100 WBC (Bld) 10.0 % Normal [facility] Comment on above: Order Comment: Speci men Type: BLOOD SPECIMENOrdering Facility: [facility] Address: [address] [place] [address] Performed By: #### 5 7021-8 ####[facility] [id number] [place] [address] [place] MCH [Entitic mass] by Automa mary counton 06-16-2023 MCH (RBC) [Entitic mass] 18.6 pg Low 26.0-34.0 [facility] [facility] Comment on above: Order Comment: Speci men Type: BLOOD SPECIMENOrdering Facility: [facility] Address: [address] [place] [address] Performed By: #### 5 7021-8 ####[facility] [id number] [address] [place] MCHC [Mass/volume] by Automa mary counton 06-16-2023 MCHC (RBC) [Mass/Vol] 25.8 g/dL Low 30.5-36.0 [facility] Comment on above: Order Comment: Speci men Type: BLOOD SPECIMENOrdering Facility: [facility] Address: [address] [place] [address] Performed By: #### 5 7021-8 ####[facility] [id number] [place] [address] [place] MCV [Entitic volume] by Auto mated counton 06-16-2023 MCV (RBC) [Entitic vol] 72.1 fL Low 80.0-100.0 [facility] Comment on above: Order Comment: Speci men Type: BLOOD SPECIMENOrdering Facility: [facility] Address: [address] [place] [address] Performed By: #### 5 7021-8 ####[facility] [id number] [place] [address] [place] Neutrophils [#/volume] in Bl ood by Automated counton 06-16-2023 Neutrophils (Bld) [#/Vol] 11.19 10*3/uL High 1.45-7.50 [facility] Comment on above: Order Comment: Speci men Type: BLOOD SPECIMENOrdering Facility: [facility] Address: [address] [place] [address] Performed By: #### 5 7021-8 ####[facility] [id number] [place] [address] No Panel Informationon 06-15 Estimated GFR (CKD-EPI) 84 mL/min/1.73m??? >=60 [facility] Comment on above: Estimated Glomerular Filtration Rate (eGFR) is calculated using the 2020 CKD-EPI creatinine equation. This equation utilizes serum creatinine, sex, and age as parameters. The creatinine assay has traceable calibration to isotope dilution-mass spectrometry. Refer to KDIGO guidelines for clinical interpretation. In patients with unstable renal function, e.g. those with acute kidney injury, the eGFR may not accurately reflect actual GFR. Normal RBC Morphology Reviewed: see results of individual morphologies [facility] Nucleated erythrocytes [#/vo lume] in Blood by Automated counton 06-16-2023 Nucleated RBC (Bld) [#/Vol] 10*3/uL Normal <0.01 [facility] Comment on above: Order Comment: Speci men Type: BLOOD SPECIMENOrdering Facility: [facility] Address: [address] [place] [address] Performed By: #### 5 7021-8 ####[facility] [id number] [place] [address] [place] Nucleated erythrocytes [Pres ence] in Blood by Automated counton 06-16-2023 Nucleated RBC Auto Ql (Bld) 0.0 /100{WBC} [facility] Ovalocyte detectionon 2023 Ovalocytes LM Ql (Bld) Few Normal [facility] Comment on above: Order Comment: Speci men Type: BLOOD SPECIMENOrdering Facility: [facility] Address: [address] [place] [address] Performed By: #### 5 7021-8 ####[facility] [id number] [place] [address] [place] Platelet adequacy [Presence] in Blood by Light microscopyon 06-16-2023 Platelets LM Ql (Bld) Increased [facility] Platelet mean volume [Entiti c volume] in Blood by Automated counton 06-16-2023 Platelet mean volume (Bld) [Entitic vol] 8.6 fL Low 9.0-12.7 [facility] Comment on above: Order Comment: Speci men Type: BLOOD SPECIMENOrdering Facility: [facility] Address: [address] [place] [address] Performed By: #### 5 7021-8 ####[facility] [id number] [place] [address] [place] Platelets [#/volume] in Bloo d by Automated counton 06-16-2023 Platelets (Bld) [#/Vol] 894 10*3/uL High 150-400 [facility] Comment on above: Order Comment: Speci men Type: BLOOD SPECIMENOrdering Facility: [facility] Address: [address] [place] [address] Performed By: #### 5 7021-8 ####[facility] [id number] [place] [address] [place] Polychromasia [Presence] in Blood by Light microscopyon 06-16-2023 Polychromasia LM Ql (Bld) Slight Normal [facility] Comment on above: Order Comment: Speci men Type: BLOOD SPECIMENOrdering Facility: [facility] Address: [address] [place] [address] Performed By: #### 5 7021-8 ####[facility] [id number] [place] [address] [place] Protein [Mass/volume] in Ser um or Plasmaon 06-16-2023 Protein [Mass/Vol] 6.6 g/dL Normal 6.3-8.0 [facility] Comment on above: Order Comment: Speci men Type: BLOOD SPECIMENOrdering Facility: [facility] Address: [address] [place] [address] Performed By: #### 2 4323-8 ####[facility] [id number] [place] [address] [place] Serum or plasma anion gap de terminationon 06-16-2023 Anion gap [Moles/Vol] 8 mmol/L Low 9-18 [facility] Comment on above: Order Comment: Speci men Type: BLOOD SPECIMENOrdering Facility: [facility] Address: [address] [place] [address] Performed By: #### 2 4323-8 ####[facility] [id number] [address] [place] Target cellson 06-16-2023 Target cells LM Ql (Bld) Few Normal [facility] Comment on above: Order Comment: Speci men Type: BLOOD SPECIMENOrdering Facility: [facility] Address: [address] [place] [address] Performed By: #### 5 7021-8 ####[facility] [id number] [address] [place] Automated basophil %on 05-18 Basophils/100 WBC (Bld) 1.4 % [facility] Comment on above: Order Comment: Speci men Type: BLOOD SPECIMENOrdering Facility: [facility] Address: [address] [place] [address] Performed By: #### 5 7021-8 ####[facility] [id number] [address] [place] Automated basophil counton 0 05-19-2023 Basophils (Bld) [#/Vol] 0.16 10*3/uL High <0.11 [facility] Comment on above: Order Comment: Speci men Type: BLOOD SPECIMENOrdering Facility: [facility] Address: [address] [place] [address] Performed By: #### 5 7021-8 ####[facility] [id number] [address] [place] Automated blood monocyte cou nton 05-19-2023 Monocytes (Bld) [#/Vol] 0.49 10*3/uL Normal <0.87 [facility] Comment on above: Order Comment: Speci men Type: BLOOD SPECIMENOrdering Facility: [facility] Address: [address] [place] [address] Performed By: #### 5 7021-8 ####[facility] [id number] [address] Automated eosinophil %on Eosinophils/100 WBC (Bld) 3.8 % Normal [facility] Comment on above: Order Comment: Speci men Type: BLOOD SPECIMENOrdering Facility: [facility] Address: [address] [place] [address] Performed By: #### 5 7021-8 ####[facility] [id number] [place] [address] Automated monocyte %on 05-18 Monocytes/100 WBC (Bld) 4.3 % Normal [facility] Comment on above: Order Comment: Speci men Type: BLOOD SPECIMENOrdering Facility: [facility] Address: [address] [place] [address] Performed By: #### 5 7021-8 ####[facility] [id number] [address] Automated neutrophil %on Neutrophils/100 WBC (Bld) 81.4 % Normal [facility] Comment on above: Order Comment: Speci men Type: BLOOD SPECIMENOrdering Facility: [facility] Address: [address] [place] [address] Performed By: #### 5 7021-8 ####[facility] [id number] [place] [address] [place] Blood manual differential co mment interpretation narrativeon 05-19-2023 Manual differential comment Van (Bld) [Interp] Auto [facility] CBC W Auto Diff Bldon 2023 Eosinophils (Bld) [#/Vol] 0.43 10*3/uL Normal <0.46 [facility] Comment on above: Order Comment: Speci men Type: BLOOD SPECIMENOrdering Facility: [facility] Address: [address] [place] [address] Performed By: #### 5 7021-8 ####[facility] [id number] [place] [address] [place] Immature granulocytes (Bld) [#/Vol] 0.10 10*3/uL High <0.10 [facility] Comment on above: Order Comment: Speci men Type: BLOOD SPECIMENOrdering Facility: [facility] Address: [address] [place] [address] Performed By: #### 5 7021-8 ####[facility] [id number] [place] [address] [place] Immature granulocytes/100 WBC (Bld) 0.9 % Normal [facility] Comment on above: Order Comment: Speci men Type: BLOOD SPECIMENOrdering Facility: [facility] Address: [address] [place] [address] Performed By: #### 5 7021-8 ####[facility] [id number] [place] [address] [place] CBC W Auto Differential pane l (Bld)on 05-19-2023 Differential cell count method Nom (Bld) Auto Normal [facility] Comment on above: Order Comment: Speci men Type: BLOOD SPECIMENOrdering Facility: [facility] Address: [address] [place] [address] Performed By: #### 5 7021-8 ####[facility] [id number] [place] [address] [place] Nucleated RBC/100 WBC (Bld) [Ratio] 0.0 /100 WBC Normal [facility] Comment on above: Order Comment: Speci men Type: BLOOD SPECIMENOrdering Facility: [facility] Address: [address] [place] [address] Performed By: #### 5 7021-8 ####[facility] [id number] [place] [address] [place] WBC (Bld) [#/Vol] 11.40 10*3/uL High 3.70-11.00 [facility] Comment on above: Order Comment: Speci men Type: BLOOD SPECIMENOrdering Facility: [facility] Address: [address] [place] [address] Performed By: #### 5 7021-8 ####[facility] [id number] [place] [address] [place] CNNURSEon 05-19-2023 CNNURSE Normal [facility] CNOVSPon 05-19-2023 CNOVSP Normal [facility] CT ABDOMEN WO IVCONon 2023 CT ABDOMEN WO IVCON Normal [facility] CT Abdomen WO contraston [facility] Comp Metab 2000 Pnl SerPlon 05-19-2023 Albumin [Mass/Vol] 4.4 g/dL Normal 3.9-4.9 [facility] Comment on above: Order Comment: Speci men Type: BLOOD SPECIMENOrdering Facility: [facility] Address: [address] [place] [address] Performed By: #### 2 4323-8 ####[facility] [id number] [place] [address] [place] ALP [Catalytic activity/Vol] 55 U/L Normal 38-113 [facility] Comment on above: Order Comment: Speci men Type: BLOOD SPECIMENOrdering Facility: [facility] Address: [address] [place] [address] Performed By: #### 2 4323-8 ####[facility] [id number] [place] [address] [place] ALT [Catalytic activity/Vol] 18 U/L Normal 10-54 [facility] Comment on above: Order Comment: Speci men Type: BLOOD SPECIMENOrdering Facility: [facility] Address: [address] [place] [address] Performed By: #### 2 4323-8 ####[facility] [id number] [place] [address] [place] AST [Catalytic activity/Vol] 24 U/L Normal 14-40 [facility] Comment on above: Order Comment: Speci men Type: BLOOD SPECIMENOrdering Facility: [facility] Address: [address] [place] [address] Performed By: #### 2 4323-8 ####[facility] [id number] [place] [address] [place] Bilirubin [Mass/Vol] 0.4 mg/dL Normal 0.2-1.3 [facility] Comment on above: Order Comment: Speci men Type: BLOOD SPECIMENOrdering Facility: [facility] Address: [address] [place] [address] Performed By: #### 2 4323-8 ####[facility] [id number] [place] [address] [place] Calcium [Mass/Vol] 9.0 mg/dL Normal 8.5-10.2 [facility] Comment on above: Order Comment: Speci men Type: BLOOD SPECIMENOrdering Facility: [facility] Address: [address] [place] [address] Performed By: #### 2 4323-8 ####[facility] [id number] [place] [address] [place] Chloride [Moles/Vol] 105 mmol/L Normal 97-105 [facility] Comment on above: Order Comment: Speci men Type: BLOOD SPECIMENOrdering Facility: [facility] Address: [address] [place] [address] Performed By: #### 2 4323-8 ####[facility] [id number] [place] [address] [place] CO2 [Moles/Vol] 26 mmol/L Normal 22-30 [facility] Comment on above: Order Comment: Speci men Type: BLOOD SPECIMENOrdering Facility: [facility] Address: [address] [place] [address] Performed By: #### 2 4323-8 ####[facility] [id number] [place] [address] [place] Creatinine [Mass/Vol] 0.98 mg/dL Normal 0.73-1.22 [facility] Comment on above: Order Comment: Abhishek sandra Type: BLOOD SPECIMENOrdering Facility: [facility] Address: [address] [place] [address] Performed By: #### 2 4323-8 ####[facility] [id number] [place] [address] [place] Glucose [Mass/Vol] 92 mg/dL Normal 74-99 [facility] Comment on above: The [place] Diab[employer] s Association (ADA) provides guidance for cutoff values for fasting glucose and random glucose. The ADA defines fasting as no caloric intake for at least 8 hours. Fasting plasma glucose results between 100 to 125 mg/dL indicate increased risk for diabetes (prediabetes).Fasting plasma glucose results greater than or equal to 126 mg/dL meet the criteria for diagnosis of diabetes. In the absence of unequivocal hyperglycemia, results should be confirmed by repeat testing. In a patient with classic symptoms of hyperglycemia or hyperglycemic crisis, random plasma glucose results greater than or equal to 200 mg/dL meet the criteria for diagnosis of diabetes.Reference: Standards of Medical Care in Diabetes 2016, [place] [employer]. Diabetes Care. 2016.39(Suppl 1). Order Comment: Abhishek flores Type: BLOOD SPECIMENOrdering Facility: [facility] Address: [address] [place] [address] Result Comment: The [place] Diabetes Association (ADA) provides guidance for cutoff values for fasting glucose and random glucose. The ADA defines fasting as no caloric intake for at least 8 hours. Fasting plasma glucose results between 100 to 125 mg/dL indicate increased risk for diabetes (prediabetes).Fasting plasma glucose results greater than or equal to 126 mg/dL meet the criteria for diagnosis of diabetes. In the absence of unequivocal hyperglycemia, results should be confirmed by repeat testing. In a patient with classic symptoms of hyperglycemia or hyperglycemic crisis, random plasma glucose results greater than or equal to 200 mg/dL meet the criteria for diagnosis of diabetes.Reference: Standards of Medical Care in Diabetes 2016, [place] [employer]. Diabetes Care. 2016.39(Suppl 1). Performed By: #### 2 4323-8 ####[facility] [id number] [place] [address] [place] Potassium [Moles/Vol] 4.5 mmol/L Normal 3.7-5.1 [facility] Comment on above: Order Comment: Speci men Type: BLOOD SPECIMENOrdering Facility: [facility] Address: [address] [place] [address] Performed By: #### 2 4323-8 ####[facility] [id number] [place] [address] [place] Sodium [Moles/Vol] 140 mmol/L Normal 136-144 [facility] Comment on above: Order Comment: Speci men Type: BLOOD SPECIMENOrdering Facility: [facility] Address: [address] [place] [address] Performed By: #### 2 4323-8 ####[facility] [id number] [place] [address] [place] Urea nitrogen [Mass/Vol] 18 mg/dL Normal 9-24 [facility] Comment on above: Order Comment: Speci men Type: BLOOD SPECIMENOrdering Facility: [facility] Address: [address] [place] [address] Performed By: #### 2 4323-8 ####[facility] [id number] [place] [address] [place] Comprehensive metabolic 2000 panelon 05-19-2023 Creatinine and Glomerular filtration rate.predicted panel (S/P/Bld) 89 mL/min/1.73m??? Normal >=60 [facility] Comment on above: Order Comment: Speci men Type: BLOOD SPECIMENOrdering Facility: [facility] Address: [address] [place] [address] Result Comment: Romi mated Glomerular Filtration Rate (eGFR) is calculated using the 2020 CKD-EPI creatinine equation. This equation utilizes serum creatinine, sex, and age as parameters. The creatinine assay has traceable calibration to isotope dilution-mass spectrometry. Refer to KDIGO guidelines for clinical interpretation. In patients with unstable renal function, e.g. those with acute kidney injury, the eGFR may not accurately reflect actual GFR. Performed By: #### 2 4323-8 ####[facility] [id number] [place] [address] [place] [id number] 05-19-2023 ECG01 Normal [facility] Erythrocyte distribution wid th [Ratio] by Automated counton 05-19-2023 Erythrocyte distribution width (RBC) [Ratio] 20.0 % High 11.5-15.0 [facility] Comment on above: Order Comment: Speci men Type: BLOOD SPECIMENOrdering Facility: [facility] Address: [address] [place] [address] Performed By: #### 5 7021-8 ####[facility] [id number] [place] [address] [place] Erythrocytes [#/volume] in B lood by Automated counton 05-19-2023 RBC (Bld) [#/Vol] 5.47 10*6/uL Normal 4.20-6.00 [facility] Comment on above: Order Comment: Speci men Type: BLOOD SPECIMENOrdering Facility: [facility] Address: [address] [place] [address] Performed By: #### 5 7021-8 ####[facility] [id number] [place] [address] [place] Hematocrit [Volume Fraction] of Blood by Automated counton 05-19-2023 Hematocrit (Bld) [Volume fraction] 38.5 % Low 39.0-51.0 [facility] Comment on above: Order Comment: Speci men Type: BLOOD SPECIMENOrdering Facility: [facility] Address: [address] [place] [address] Performed By: #### 5 7021-8 ####[facility] [id number] [place] [address] [place] Hemoglobin [Mass/volume] in Bloodon 05-19-2023 Hemoglobin (Bld) [Mass/Vol] 10.2 g/dL Low 13.0-17.0 [facility] Comment on above: Order Comment: Speci men Type: BLOOD SPECIMENOrdering Facility: [facility] Address: [address] [place] [address] Performed By: #### 5 7021-8 ####[facility] [id number] [place] [address] [place] Leukocytes [#/volume] correc mary for nucleated erythrocytes in Blood by Automated counon 05-19-2023 WBC corrected for nucl RBC Auto (Bld) [#/Vol] 11.40 k/uL 3.70-11.00 [facility] Lymphocytes [#/volume] in Bl ood by Automated counton 05-19-2023 Lymphocytes (Bld) [#/Vol] 0.94 10*3/uL Low 1.00-4.00 [facility] Comment on above: Order Comment: Speci men Type: BLOOD SPECIMENOrdering Facility: [facility] Address: [address] [place] [address] Performed By: #### 5 7021-8 ####[facility] [id number] [place] [address] [place] Lymphocytes/100 leukocytes i n Blood by Automated counton 05-19-2023 Lymphocytes/100 WBC (Bld) 8.2 % Normal [facility] Comment on above: Order Comment: Speci men Type: BLOOD SPECIMENOrdering Facility: [facility] Address: [address] [place] [address] Performed By: #### 5 7021-8 ####[facility] [id number] [place] [address] [place] MCH [Entitic mass] by Automa mary counton 05-19-2023 MCH (RBC) [Entitic mass] 18.6 pg Low 26.0-34.0 [facility] Comment on above: Order Comment: Speci men Type: BLOOD SPECIMENOrdering Facility: [facility] Address: [address] [place] [address] Performed By: #### 5 7021-8 ####[facility] [id number] [place] [address] [place] MCHC [Mass/volume] by Automa mary counton 05-19-2023 MCHC (RBC) [Mass/Vol] 26.5 g/dL Low 30.5-36.0 [facility] Comment on above: Order Comment: Speci men Type: BLOOD SPECIMENOrdering Facility: [facility] Address: [address] [place] [address] Performed By: #### 5 7021-8 ####[facility] [id number] [place] [address] [place] MCV [Entitic volume] by Auto mated counton 05-19-2023 MCV (RBC) [Entitic vol] 70.4 fL Low 80.0-100.0 [facility] Comment on above: Order Comment: Speci men Type: BLOOD SPECIMENOrdering Facility: [facility] Address: [address] [place] [address] Performed By: #### 5 7021-8 ####[facility] [id number] [place] [address] [place] Neutrophils [#/volume] in Bl ood by Automated counton 05-19-2023 Neutrophils (Bld) [#/Vol] 9.28 10*3/uL High 1.45-7.50 [facility] Comment on above: Order Comment: Speci men Type: BLOOD SPECIMENOrdering Facility: [facility] Address: [address] [place] [address] Performed By: #### 5 7021-8 ####[facility] [id number] [address] [place] No Panel Informationon 05-18 Estimated GFR (CKD-EPI) 89 mL/min/1.73m??? >=60 [facility] Comment on above: Estimated Glomerular Filtration Rate (eGFR) is calculated using the 2020 CKD-EPI creatinine equation. This equation utilizes serum creatinine, sex, and age as parameters. The creatinine assay has traceable calibration to isotope dilution-mass spectrometry. Refer to KDIGO guidelines for clinical interpretation. In patients with unstable renal function, e.g. those with acute kidney injury, the eGFR may not accurately reflect actual GFR. Nucleated erythrocytes [#/vo lume] in Blood by Automated counton 05-19-2023 Nucleated RBC (Bld) [#/Vol] 10*3/uL Normal <0.01 [facility] Comment on above: Order Comment: Speci men Type: BLOOD SPECIMENOrdering Facility: [facility] Address: [address] [place] [address] Performed By: #### 5 7021-8 ####[facility] [id number] [place] [address] [place] Nucleated erythrocytes [Pres ence] in Blood by Automated counton 05-19-2023 Nucleated RBC Auto Ql (Bld) 0.0 /100{WBC} [facility] Platelet mean volume [Entiti c volume] in Blood by Automated counton 05-19-2023 Platelet mean volume (Bld) [Entitic vol] 8.6 fL Low 9.0-12.7 [facility] Comment on above: Order Comment: Speci men Type: BLOOD SPECIMENOrdering Facility: [facility] Address: [address] [place] [address] Performed By: #### 5 7021-8 ####[facility] [facility] [id number] [place] [address] [place] Platelets [#/volume] in Bloo d by Automated counton 05-19-2023 Platelets (Bld) [#/Vol] 925 10*3/uL High 150-400 [facility] Comment on above: Order Comment: Speci men Type: BLOOD SPECIMENOrdering Facility: [facility] Address: [address] [place] [address] Performed By: #### 5 7021-8 ####[facility] [id number] [place] [address] [place] Protein [Mass/volume] in Ser um or Plasmaon 05-19-2023 Protein [Mass/Vol] 6.7 g/dL Normal 6.3-8.0 [facility] Comment on above: Order Comment: Speci men Type: BLOOD SPECIMENOrdering Facility: [facility] Address: [address] [place] [address] Performed By: #### 2 4323-8 ####[facility] [id number] [place] [address] [place] Serum or plasma anion gap de terminationon 05-19-2023 Anion gap [Moles/Vol] 9 mmol/L Normal 9-18 [facility] Comment on above: Order Comment: Speci men Type: BLOOD SPECIMENOrdering Facility: [facility] Address: [address] [place] [address] Performed By: #### 2 4323-8 ####[facility] [id number] [place] [address] [place] CNPNon 05-18-2023 CNPN Normal [facility] CNPNon 05-17-2023 CNPN Normal [facility] CBC W Auto Differential pane l (Bld)on 03-24-2023 Basophils (Bld) [#/Vol] 0.18 10*3/uL High <0.11 [facility] Comment on above: Order Comment: Speci men Type: BLOOD SPECIMENOrdering Facility: [facility] Address: [address] [place] [address] Performed By: #### 5 7021-8 ####[facility] [id number] [place] [address] [place] Basophils/100 WBC (Bld) 1.4 % Normal [facility] Comment on above: Order Comment: Speci men Type: BLOOD SPECIMENOrdering Facility: [facility] Address: [address] [place] [address] Performed By: #### 5 7021-8 ####[facility] [id number] [place] [address] [place] Differential cell count method Nom (Bld) Auto Normal [facility] Comment on above: Order Comment: Speci men Type: BLOOD SPECIMENOrdering Facility: [facility] Address: [address] [place] [address] Performed By: #### 5 7021-8 ####[facility] [id number] [place] [address] [place] Eosinophils (Bld) [#/Vol] 0.33 10*3/uL Normal <0.46 [facility] Comment on above: Order Comment: Speci men Type: BLOOD SPECIMENOrdering Facility: [facility] Address: [address] [place] [address] Performed By: #### 5 7021-8 ####[facility] [id number] [place] [address] [place] Eosinophils/100 WBC (Bld) 2.7 % Normal [facility] Comment on above: Order Comment: Speci men Type: BLOOD SPECIMENOrdering Facility: [facility] Address: [address] [place] [address] Performed By: #### 5 7021-8 ####[facility] [id number] [place] [address] [place] Erythrocyte distribution width (RBC) [Ratio] 20.3 % High 11.5-15.0 [facility] Comment on above: Order Comment: Speci men Type: BLOOD SPECIMENOrdering Facility: [facility] Address: [address] [place] [address] Performed By: #### 5 7021-8 ####[facility] [id number] [place] [address] [place] Hematocrit (Bld) [Volume fraction] 43.6 % Normal 39.0-51.0 [facility] Comment on above: Order Comment: Speci men Type: BLOOD SPECIMENOrdering Facility: [facility] Address: [address] [place] [address] Performed By: #### 5 7021-8 ####[facility] [id number] [place] [address] [place] Hemoglobin (Bld) [Mass/Vol] 11.4 g/dL Low 13.0-17.0 [facility] Comment on above: Order Comment: Speci men Type: BLOOD SPECIMENOrdering Facility: [facility] Address: [address] [place] [address] Performed By: #### 5 7021-8 ####[facility] [id number] [place] [address] [place] Immature granulocytes (Bld) [#/Vol] 0.14 10*3/uL High <0.10 [facility] Comment on above: Order Comment: Speci men Type: BLOOD SPECIMENOrdering Facility: [facility] Address: [address] [place] [address] Performed By: #### 5 7021-8 ####[facility] [id number] [place] [address] [place] Immature granulocytes/100 WBC (Bld) 1.1 % Normal [facility] Comment on above: Order Comment: Speci men Type: BLOOD SPECIMENOrdering Facility: [facility] Address: [address] [place] [address] Performed By: #### 5 7021-8 ####[facility] [id number] [place] [address] [place] Lymphocytes (Bld) [#/Vol] 1.01 10*3/uL Normal 1.00-4.00 [facility] Comment on above: Order Comment: Speci men Type: BLOOD SPECIMENOrdering Facility: [facility] Address: [address] [place] [address] Performed By: #### 5 7021-8 ####[facility] [id number] [place] [address] [place] Lymphocytes/100 WBC (Bld) 8.1 % Normal [facility] Comment on above: Order Comment: Speci men Type: BLOOD SPECIMENOrdering Facility: [facility] Address: [address] [place] [address] Performed By: #### 5 7021-8 ####[facility] [id number] [place] [address] [place] MCH (RBC) [Entitic mass] 18.3 pg Low 26.0-34.0 [facility] Comment on above: Order Comment: Speci men Type: BLOOD SPECIMENOrdering Facility: [facility] Address: [address] [place] [address] Performed By: #### 5 7021-8 ####[facility] [id number] [place] [address] [place] MCHC (RBC) [Mass/Vol] 26.1 g/dL Low 30.5-36.0 [facility] Comment on above: Order Comment: Speci men Type: BLOOD SPECIMENOrdering Facility: [facility] Address: [address] [place] [address] Performed By: #### 5 7021-8 ####[facility] [id number] [place] [address] [place] MCV (RBC) [Entitic vol] 70.1 fL Low 80.0-100.0 [facility] Comment on above: Order Comment: Speci men Type: BLOOD SPECIMENOrdering Facility: [facility] Address: [address] [place] [address] Performed By: #### 5 7021-8 ####[facility] [id number] [place] [address] [place] Monocytes (Bld) [#/Vol] 0.47 10*3/uL Normal <0.87 [facility] Comment on above: Order Comment: Speci men Type: BLOOD SPECIMENOrdering Facility: [facility] Address: [address] [place] [address] Performed By: #### 5 7021-8 ####[facility] [id number] [place] [address] [place] Monocytes/100 WBC (Bld) 3.8 % Normal [facility] Comment on above: Order Comment: Speci men Type: BLOOD SPECIMENOrdering Facility: [facility] Address: [address] [place] [address] Performed By: #### 5 7021-8 ####[facility] [id number] [place] [address] [place] Neutrophils (Bld) [#/Vol] 10.32 10*3/uL High 1.45-7.50 [facility] Comment on above: Order Comment: Speci men Type: BLOOD SPECIMENOrdering Facility: [facility] Address: [address] [place] [address] Performed By: #### 5 7021-8 ####[facility] [id number] [place] [address] [place] Neutrophils/100 WBC (Bld) 82.9 % Normal [facility] Comment on above: Order Comment: Speci men Type: BLOOD SPECIMENOrdering Facility: [facility] Address: [address] [place] [address] Performed By: #### 5 7021-8 ####[facility] [id number] [place] [address] [place] Nucleated RBC (Bld) [#/Vol] 10*3/uL Normal <0.01 [facility] Comment on above: Order Comment: Speci men Type: BLOOD SPECIMENOrdering Facility: [facility] Address: [address] [place] [address] Performed By: #### 5 7021-8 ####[facility] [id number] [place] [address] [place] Nucleated RBC/100 WBC (Bld) [Ratio] 0.0 /100 WBC Normal [facility] Comment on above: Order Comment: Speci men Type: BLOOD SPECIMENOrdering Facility: [facility] Address: [address] [place] [address] Performed By: #### 5 7021-8 ####[facility] [id number] [place] [address] [place] Platelet mean volume (Bld) [Entitic vol] 8.5 fL Low 9.0-12.7 [facility] Comment on above: Order Comment: Speci men Type: BLOOD SPECIMENOrdering Facility: [facility] Address: [address] [place] [address] Performed By: #### 5 7021-8 ####[facility] [id number] [place] [address] [place] Platelets (Bld) [#/Vol] 1076 10*3/uL High 150-400 [facility] Comment on above: Order Comment: Speci men Type: BLOOD SPECIMENOrdering Facility: [facility] Address: [address] [place] [address] Result Comment: Plat elet count confirmed by manual review of peripheral blood smear. Performed By: #### 5 7021-8 ####[facility] [id number] [place] [address] [place] RBC (Bld) [#/Vol] 6.22 10*6/uL High 4.20-6.00 [facility] Comment on above: Order Comment: Speci men Type: BLOOD SPECIMENOrdering Facility: [facility] Address: [address] [place] [address] Performed By: #### 5 7021-8 ####[facility] [id number] [place] [address] [place] WBC (Bld) [#/Vol] 12.45 10*3/uL High 3.70-11.00 [facility] Comment on above: Order Comment: Speci men Type: BLOOD SPECIMENOrdering Facility: [facility] Address: [address] [place] [address] Performed By: #### 5 7021-8 ####[facility] [id number] [place] [address] [place] CNNURSEon 03-24-2023 CNNURSE Normal [facility] CNOVSPon 03-24-2023 CNOVSP Normal [facility] Comprehensive metabolic 2000 panelon 03-24-2023 Albumin [Mass/Vol] 4.7 g/dL Normal 3.9-4.9 [facility] Comment on above: Order Comment: Speci men Type: BLOOD SPECIMENOrdering Facility: [facility] Address: [address] [place] [address] Performed By: #### 2 4323-8 ####[facility] [id number] [place] [address] [place] ALP [Catalytic activity/Vol] 53 U/L Normal 38-113 [facility] Comment on above: Order Comment: Speci men Type: BLOOD SPECIMENOrdering Facility: [facility] Address: [address] [place] [address] Performed By: #### 2 4323-8 ####[facility] [id number] [place] [address] [place] ALT [Catalytic activity/Vol] 17 U/L Normal 10-54 [facility] Comment on above: Order Comment: Speci men Type: BLOOD SPECIMENOrdering Facility: [facility] Address: [address] [place] [address] Performed By: #### 2 4323-8 ####[facility] [id number] [place] [address] [place] Anion gap [Moles/Vol] 11 mmol/L Normal 9-18 [facility] Comment on above: Order Comment: Speci men Type: BLOOD SPECIMENOrdering Facility: [facility] Address: [address] [place] [address] Performed By: #### 2 4323-8 ####[facility] [id number] [place] [address] [place] AST [Catalytic activity/Vol] 22 U/L Normal 14-40 [facility] Comment on above: Order Comment: Speci men Type: BLOOD SPECIMENOrdering Facility: [facility] Address: [address] [place] [address] Performed By: #### 2 4323-8 ####[facility] [id number] [place] [address] [place] Bilirubin [Mass/Vol] 0.5 mg/dL Normal 0.2-1.3 [facility] Comment on above: Order Comment: Speci men Type: BLOOD SPECIMENOrdering Facility: [facility] Address: [address] [place] [address] Performed By: #### 2 4323-8 ####[facility] [id number] [place] [address] [place] Calcium [Mass/Vol] 9.5 mg/dL Normal 8.5-10.2 [facility] Comment on above: Order Comment: Speci men Type: BLOOD SPECIMENOrdering Facility: [facility] Address: [address] [place] [address] Performed By: #### 2 4323-8 ####[facility] [id number] [place] [address] [place] Chloride [Moles/Vol] 106 mmol/L High 97-105 [facility] Comment on above: Order Comment: Speci men Type: BLOOD SPECIMENOrdering Facility: [facility] Address: [address] [place] [address] Performed By: #### 2 4323-8 ####[facility] [id number] [place] [address] [place] CO2 [Moles/Vol] 24 mmol/L Normal 22-30 [facility] Comment on above: Order Comment: Speci men Type: BLOOD SPECIMENOrdering Facility: [facility] Address: [address] [place] [address] Performed By: #### 2 4323-8 ####[facility] [id number] [place] [address] [place] Creatinine [Mass/Vol] 1.23 mg/dL High 0.73-1.22 [facility] Comment on above: Order Comment: Speci men Type: BLOOD SPECIMENOrdering Facility: [facility] Address: [address] [place] [address] Performed By: #### 2 4323-8 ####[facility] [id number] [place] [address] [place] Creatinine and Glomerular filtration rate.predicted panel (S/P/Bld) 68 mL/min/1.73m??? Normal >=60 [facility] Comment on above: Order Comment: Speci men Type: BLOOD SPECIMENOrdering Facility: [facility] Address: [address] [place] [address] Result Comment: Romi mated Glomerular Filtration Rate (eGFR) is calculated using the 2020 CKD-EPI creatinine equation. This equation utilizes serum creatinine, sex, and age as parameters. The creatinine assay has traceable calibration to isotope dilution-mass spectrometry. Refer to KDIGO guidelines for clinical interpretation. In patients with unstable renal function, e.g. those with acute kidney injury, the eGFR may not accurately reflect actual GFR. Performed By: #### 2 4323-8 ####[facility] [id number] [place] [address] [place] Glucose [Mass/Vol] 78 mg/dL Normal 74-99 [facility] Comment on above: Order Comment: Speci men Type: BLOOD SPECIMENOrdering Facility: [facility] Address: [address] [place] [address] Result Comment: The [place] [employer] (ADA) provides guidance for cutoff values for fasting glucose and random glucose. The ADA defines fasting as no caloric intake for at least 8 hours. Fasting plasma glucose results between 100 to 125 mg/dL indicate increased risk for diabetes (prediabetes).Fasting plasma glucose results greater than or equal to 126 mg/dL meet the criteria for diagnosis of diabetes. In the absence of unequivocal hyperglycemia, results should be confirmed by repeat testing. In a patient with classic symptoms of hyperglycemia or hyperglycemic crisis, random plasma glucose results greater than or equal to 200 mg/dL meet the criteria for diagnosis of diabetes.Reference: Standards of Medical Care in Diabetes 2016, [place] [employer]. Diabetes Care. 2016.39(Suppl 1). Performed By: #### 2 4323-8 ####[facility] [id number] [place] [address] [place] Potassium [Moles/Vol] 5.3 mmol/L High 3.7-5.1 [facility] Comment on above: Order Comment: Alejandroi men Type: BLOOD SPECIMENOrdering Facility: [facility] Address: [address] [place] [address] Performed By: #### 2 4323-8 ####[facility] [id number] [place] [address] [place] Protein [Mass/Vol] 7.1 g/dL Normal 6.3-8.0 [facility] Comment on above: Order Comment: Alejandroi men Type: BLOOD SPECIMENOrdering Facility: [facility] Address: [address] [place] [address] Performed By: #### 2 4323-8 ####[facility] [id number] [place] [address] [place] Sodium [Moles/Vol] 141 mmol/L Normal 136-144 [facility] Comment on above: Order Comment: Speci men Type: BLOOD SPECIMENOrdering Facility: [facility] Address: [address] [place] [address] Performed By: #### 2 4323-8 ####[facility] [id number] [place] [address] [place] Urea nitrogen [Mass/Vol] 20 mg/dL Normal 9-24 [facility] Comment on above: Order Comment: Speci men Type: BLOOD SPECIMENOrdering Facility: [facility] Address: [address] [place] [address] Performed By: #### 2 4323-8 ####[facility] [id number] [place] [address] [place] CNPNon 03-22-2023 CNPN Normal [facility] CBC W Auto Differential pane l (Bld)on 01-27-2023 Basophils (Bld) [#/Vol] 0.19 10*3/uL High <0.11 [facility] Comment on above: Order Comment: Speci men Type: BLOOD SPECIMENOrdering Facility: [facility] Address: [address] [place] [address] Performed By: #### 5 7021-8 ####[facility] [id number] [place] [address] [place] Basophils/100 WBC (Bld) 1.5 % Normal [facility] Comment on above: Order Comment: Speci men Type: BLOOD SPECIMENOrdering Facility: [facility] Address: [address] [place] [address] Performed By: #### 5 7021-8 ####[facility] [id number] [place] [address] [place] Differential cell count method Nom (Bld) Auto Normal [facility] Comment on above: Order Comment: Speci men Type: BLOOD SPECIMENOrdering Facility: [facility] Address: [address] [place] [address] Performed By: #### 5 7021-8 ####[facility] [id number] [place] [address] [place] Eosinophils (Bld) [#/Vol] 0.39 10*3/uL Normal <0.46 [facility] Comment on above: Order Comment: Speci men Type: BLOOD SPECIMENOrdering Facility: [facility] Address: [address] [place] [address] Performed By: #### 5 7021-8 ####[facility] [id number] [place] [address] [place] Eosinophils/100 WBC (Bld) 3.0 % Normal [facility] Comment on above: Order Comment: Speci men Type: BLOOD SPECIMENOrdering Facility: [facility] Address: [address] [place] [address] Performed By: #### 5 7021-8 ####[facility] [id number] [place] [address] [place] Erythrocyte distribution width (RBC) [Ratio] 20.0 % High 11.5-15.0 [facility] Comment on above: Order Comment: Speci men Type: BLOOD SPECIMENOrdering Facility: [facility] Address: [address] [place] [address] Performed By: #### 5 7021-8 ####[facility] [id number] [place] [address] [place] Hematocrit (Bld) [Volume fraction] 39.9 % Normal 39.0-51.0 [facility] Comment on above: Order Comment: Speci men Type: BLOOD SPECIMENOrdering Facility: [facility] Address: [address] [place] [address] Performed By: #### 5 7021-8 ####[facility] [id number] [place] [address] [place] Hemoglobin (Bld) [Mass/Vol] 10.5 g/dL Low 13.0-17.0 [facility] Comment on above: Order Comment: Speci men Type: BLOOD SPECIMENOrdering Facility: [facility] Address: [address] [place] [address] Performed By: #### 5 7021-8 ####[facility] [id number] [place] [address] [place] Immature granulocytes (Bld) [#/Vol] 0.21 10*3/uL High <0.10 [facility] Comment on above: Order Comment: Speci men Type: BLOOD SPECIMENOrdering Facility: [facility] Address: [address] [place] [address] Performed By: #### 5 7021-8 ####[facility] [id number] [place] [address] [place] Immature granulocytes/100 WBC (Bld) 1.6 % Normal [facility] Comment on above: Order Comment: Speci men Type: BLOOD SPECIMENOrdering Facility: [facility] Address: [address] [place] [address] Performed By: #### 5 7021-8 ####[facility] [id number] [place] [address] [place] Lymphocytes (Bld) [#/Vol] 1.05 10*3/uL Normal 1.00-4.00 [facility] Comment on above: Order Comment: Speci men Type: BLOOD SPECIMENOrdering Facility: [facility] Address: [address] [place] [address] Performed By: #### 5 7021-8 ####[facility] [id number] [place] [address] [place] Lymphocytes/100 WBC (Bld) 8.2 % Normal [facility] Comment on above: Order Comment: Speci men Type: BLOOD SPECIMENOrdering Facility: [facility] Address: [address] [place] [address] Performed By: #### 5 7021-8 ####[facility] [id number] [place] [address] [place] MCH (RBC) [Entitic mass] 19.1 pg Low 26.0-34.0 [facility] Comment on above: Order Comment: Speci men Type: BLOOD SPECIMENOrdering Facility: [facility] Address: [address] [place] [address] Performed By: #### 5 7021-8 ####[facility] [id number] [place] [address] [place] MCHC (RBC) [Mass/Vol] 26.3 g/dL Low 30.5-36.0 [facility] Comment on above: Order Comment: Speci men Type: BLOOD SPECIMENOrdering Facility: [facility] Address: [address] [place] [address] Performed By: #### 5 7021-8 ####[facility] [id number] [place] [address] [place] MCV (RBC) [Entitic vol] 72.4 fL Low 80.0-100.0 [facility] Comment on above: Order Comment: Speci men Type: BLOOD SPECIMENOrdering Facility: [facility] Address: [address] [place] [address] Performed By: #### 5 7021-8 ####[facility] [id number] [place] [address] [place] Monocytes (Bld) [#/Vol] 0.49 10*3/uL Normal <0.87 [facility] Comment on above: Order Comment: Speci men Type: BLOOD SPECIMENOrdering Facility: [facility] Address: [address] [place] [address] Performed By: #### 5 7021-8 ####[facility] [id number] [place] [address] [place] Monocytes/100 WBC (Bld) 3.8 % Normal [facility] Comment on above: Order Comment: Speci men Type: BLOOD SPECIMENOrdering Facility: [facility] Address: [address] [place] [address] Performed By: #### 5 7021-8 ####[facility] [id number] [place] [address] [place] Neutrophils (Bld) [#/Vol] 10.50 10*3/uL High 1.45-7.50 [facility] Comment on above: Order Comment: Speci men Type: BLOOD SPECIMENOrdering Facility: [facility] Address: [address] [place] [address] Performed By: #### 5 7021-8 ####[facility] [id number] [place] [address] [place] Neutrophils/100 WBC (Bld) 81.9 % Normal [facility] Comment on above: Order Comment: Speci men Type: BLOOD SPECIMENOrdering Facility: [facility] Address: [address] [place] [address] Performed By: #### 5 7021-8 ####[facility] [id number] [place] [address] [place] Nucleated RBC (Bld) [#/Vol] 10*3/uL Normal <0.01 [facility] Comment on above: Order Comment: Speci men Type: BLOOD SPECIMENOrdering Facility: [facility] Address: [address] [place] [address] Performed By: #### 5 7021-8 ####[facility] [id number] [place] [address] [place] Nucleated RBC/100 WBC (Bld) [Ratio] 0.0 /100 WBC Normal [facility] Comment on above: Order Comment: Speci men Type: BLOOD SPECIMENOrdering Facility: [facility] Address: [address] [place] [address] Performed By: #### 5 7021-8 ####[facility] [id number] [place] [address] [place] Platelet mean volume (Bld) [Entitic vol] 8.4 fL Low 9.0-12.7 [facility] Comment on above: Order Comment: Speci men Type: BLOOD SPECIMENOrdering Facility: [facility] Address: [address] [place] [address] Performed By: #### 5 7021-8 ####[facility] [id number] [place] [address] [place] Platelets (Bld) [#/Vol] 835 10*3/uL High 150-400 [facility] Comment on above: Order Comment: Speci men Type: BLOOD SPECIMENOrdering Facility: [facility] Address: [address] [place] [address] Performed By: #### 5 7021-8 ####[facility] [id number] [place] [address] [place] RBC (Bld) [#/Vol] 5.51 10*6/uL Normal 4.20-6.00 [facility] Comment on above: Order Comment: Speci men Type: BLOOD SPECIMENOrdering Facility: [facility] Address: [address] [place] [address] Performed By: #### 5 7021-8 ####[facility] [id number] [place] [address] [place] WBC (Bld) [#/Vol] 12.83 10*3/uL High 3.70-11.00 [facility] Comment on above: Order Comment: Speci men Type: BLOOD SPECIMENOrdering Facility: [facility] Address: [address] [place] [address] Performed By: #### 5 7021-8 ####[facility] [id number] [place] [address] [place] CNNURSEon 01-27-2023 CNNURSE Normal [facility] CNOVSPon 01-27-2023 CNOVSP Normal [facility] Comprehensive metabolic 2000 panelon 01-27-2023 Albumin [Mass/Vol] 4.5 g/dL Normal 3.9-4.9 [facility] Comment on above: Order Comment: Speci men Type: BLOOD SPECIMENOrdering Facility: [facility] Address: [address] [place] [address] Performed By: #### 2 4323-8 ####[facility] [id number] [place] [address] [place] ALP [Catalytic activity/Vol] 54 U/L Normal 38-113 [facility] Comment on above: Order Comment: Speci men Type: BLOOD SPECIMENOrdering Facility: [facility] Address: [address] [place] [address] Performed By: #### 2 4323-8 ####[facility] [id number] [place] [address] [place] ALT [Catalytic activity/Vol] 17 U/L Normal 10-54 [facility] Comment on above: Order Comment: Speci men Type: BLOOD SPECIMENOrdering Facility: [facility] Address: [address] [place] [address] Performed By: #### 2 4323-8 ####[facility] [id number] [place] [address] [place] Anion gap [Moles/Vol] 10 mmol/L Normal 9-18 [facility] Comment on above: Order Comment: Speci men Type: BLOOD SPECIMENOrdering Facility: [facility] Address: [address] [place] [address] Performed By: #### 2 4323-8 ####[facility] [id number] [place] [address] [place] AST [Catalytic activity/Vol] 24 U/L Normal 14-40 [facility] Comment on above: Order Comment: Speci men Type: BLOOD SPECIMENOrdering Facility: [facility] Address: [address] [place] [address] Performed By: #### 2 4323-8 ####[facility] [id number] [place] [address] [place] Bilirubin [Mass/Vol] 0.7 mg/dL Normal 0.2-1.3 [facility] Comment on above: Order Comment: Speci men Type: BLOOD SPECIMENOrdering Facility: [facility] Address: [address] [place] [address] Performed By: #### 2 4323-8 ####[facility] [id number] [place] [address] [place] Calcium [Mass/Vol] 9.2 mg/dL Normal 8.5-10.2 [facility] Comment on above: Order Comment: Speci men Type: BLOOD SPECIMENOrdering Facility: [facility] Address: [address] [place] [address] Performed By: #### 2 4323-8 ####[facility] [id number] [place] [address] [place] Chloride [Moles/Vol] 106 mmol/L High 97-105 [facility] Comment on above: Order Comment: Speci men Type: BLOOD SPECIMENOrdering Facility: [facility] Address: [address] [place] [address] Performed By: #### 2 4323-8 ####[facility] [id number] [place] [address] [place] CO2 [Moles/Vol] 25 mmol/L Normal 22-30 [facility] Comment on above: Order Comment: Speci men Type: BLOOD SPECIMENOrdering Facility: [facility] Address: [address] [place] [address] Performed By: #### 2 4323-8 ####[facility] [id number] [place] [address] [place] Creatinine [Mass/Vol] 0.91 mg/dL Normal 0.73-1.22 [facility] Comment on above: Order Comment: Speci men Type: BLOOD SPECIMENOrdering Facility: [facility] Address: [address] [place] [address] Performed By: #### 2 4323-8 ####[facility] [id number] [address] [place] [facility] Creatinine and Glomerular filtration rate.predicted panel (S/P/Bld) 98 mL/min/1.73m??? Normal >=60 [facility] Comment on above: Order Comment: Speci men Type: BLOOD SPECIMENOrdering Facility: [facility] Address: [address] [place] [address] Result Comment: Romi mated Glomerular Filtration Rate (eGFR) is calculated using the 2020 CKD-EPI creatinine equation. This equation utilizes serum creatinine, sex, and age as parameters. The creatinine assay has traceable calibration to isotope dilution-mass spectrometry. Refer to KDIGO guidelines for clinical interpretation. In patients with unstable renal function, e.g. those with acute kidney injury, the eGFR may not accurately reflect actual GFR. Performed By: #### 2 4323-8 ####[facility] [id number] [place] [address] [place] Glucose [Mass/Vol] 97 mg/dL Normal 74-99 [facility] Comment on above: Order Comment: Speci men Type: BLOOD SPECIMENOrdering Facility: [facility] Address: [address] [place] [address] Result Comment: The [place] [employer] (ADA) provides guidance for cutoff values for fasting glucose and random glucose. The ADA defines fasting as no caloric intake for at least 8 hours. Fasting plasma glucose results between 100 to 125 mg/dL indicate increased risk for diabetes (prediabetes).Fasting plasma glucose results greater than or equal to 126 mg/dL meet the criteria for diagnosis of diabetes. In the absence of unequivocal hyperglycemia, results should be confirmed by repeat testing. In a patient with classic symptoms of hyperglycemia or hyperglycemic crisis, random plasma glucose results greater than or equal to 200 mg/dL meet the criteria for diagnosis of diabetes.Reference: Standards of Medical Care in Diabetes 2016, [place] [employer]. Diabetes Care. 2016.39(Suppl 1). Performed By: #### 2 4323-8 ####[facility] [id number] [place] [address] [place] Potassium [Moles/Vol] 4.1 mmol/L Normal 3.7-5.1 [facility] Comment on above: Order Comment: Speci men Type: BLOOD SPECIMENOrdering Facility: [facility] Address: [address] [place] [address] Performed By: #### 2 4323-8 ####[facility] [id number] [place] [address] [place] Protein [Mass/Vol] 6.6 g/dL Normal 6.3-8.0 [facility] Comment on above: Order Comment: Speci men Type: BLOOD SPECIMENOrdering Facility: [facility] Address: [address] [place] [address] Performed By: #### 2 4323-8 ####[facility] [id number] [place] [address] [place] Sodium [Moles/Vol] 141 mmol/L Normal 136-144 [facility] Comment on above: Order Comment: Speci men Type: BLOOD SPECIMENOrdering Facility: [facility] Address: [address] [place] [address] Performed By: #### 2 4323-8 ####[facility] [id number] [place] [address] [place] Urea nitrogen [Mass/Vol] 17 mg/dL Normal 9-24 [facility] Comment on above: Order Comment: Speci men Type: BLOOD SPECIMENOrdering Facility: [facility] Address: [address] [place] [address] Performed By: #### 2 4323-8 ####[facility] [id number] [place] [address] [place] CBC W Auto Differential pane l (Bld)on 12-02-2022 Erythrocyte distribution width (RBC) [Ratio] 19.7 % High 11.5-15.0 [facility] Comment on above: Order Comment: Speci men Type: BLOOD SPECIMENOrdering Facility: [facility] Address: [address] [place] [address] Performed By: #### 5 7021-8, [id number] ####[facility] [id number] [place] [address] [place] Hematocrit (Bld) [Volume fraction] 38.4 % Low 39.0-51.0 [facility] Comment on above: Order Comment: Speci men Type: BLOOD SPECIMENOrdering Facility: [facility] Address: [address] [place] [address] Performed By: #### 5 7021-8, [id number] ####[facility] [id number] [place] [address] [place] Hemoglobin (Bld) [Mass/Vol] 10.2 g/dL Low 13.0-17.0 [facility] Comment on above: Order Comment: Speci men Type: BLOOD SPECIMENOrdering Facility: [facility] Address: [address] [place] [address] Performed By: #### 5 7021-8, [id number] ####[facility] [id number] [place] [address] [place] MCH (RBC) [Entitic mass] 19.1 pg Low 26.0-34.0 [facility] Comment on above: Order Comment: Speci men Type: BLOOD SPECIMENOrdering Facility: [facility] Address: [address] [place] [address] Performed By: #### 5 7021-8, [id number] ####[facility] [id number] [place] [address] [place] MCHC (RBC) [Mass/Vol] 26.6 g/dL Low 30.5-36.0 [facility] Comment on above: Order Comment: Speci men Type: BLOOD SPECIMENOrdering Facility: [facility] Address: [address] [place] [address] Performed By: #### 5 7021-8, [id number] ####[facility] [id number] [place] [address] [place] MCV (RBC) [Entitic vol] 72.0 fL Low 80.0-100.0 [facility] Comment on above: Order Comment: Speci men Type: BLOOD SPECIMENOrdering Facility: [facility] Address: [address] [place] [address] Performed By: #### 5 7021-8, [id number] ####[facility] [id number] [place] [address] [place] Platelet mean volume (Bld) [Entitic vol] 8.4 fL Low 9.0-12.7 [facility] Comment on above: Order Comment: Speci men Type: BLOOD SPECIMENOrdering Facility: [facility] Address: [address] [place] [address] Performed By: #### 5 7021-8, [id number] ####[facility] [id number] [place] [address] [place] Platelets (Bld) [#/Vol] 866 10*3/uL High 150-400 [facility] Comment on above: Order Comment: Speci men Type: BLOOD SPECIMENOrdering Facility: [facility] Address: [address] [place] [address] Performed By: #### 5 7021-8, [id number] ####[facility] [id number] [place] [address] [place] RBC (Bld) [#/Vol] 5.33 10*6/uL Normal 4.20-6.00 [facility] Comment on above: Order Comment: Speci men Type: BLOOD SPECIMENOrdering Facility: [facility] Address: [address] [place] [address] Performed By: #### 5 7021-8, [id number] ####[facility] [id number] [place] [address] [place] WBC (Bld) [#/Vol] 12.11 10*3/uL High 3.70-11.00 [facility] Comment on above: Order Comment: Speci men Type: BLOOD SPECIMENOrdering Facility: [facility] Address: [address] [place] [address] Performed By: #### 5 7021-8, [id number] ####[facility] [id number] [place] [address] [place] CNNURSEon 12-02-2022 CNNURSE Normal [facility] CNOVSPon 12-02-2022 CNOVSP Normal [facility] CT ABDOMEN WO IVCONon 2022 CT ABDOMEN WO IVCON Normal [facility] Comprehensive metabolic 2000 panelon 12-02-2022 Albumin [Mass/Vol] 4.6 g/dL Normal 3.9-4.9 [facility] Comment on above: Order Comment: Speci men Type: BLOOD SPECIMENOrdering Facility: [facility] Address: [address] [place] [address] Performed By: #### 2 4323-8 ####[facility] [id number] [place] [address] [place] ALP [Catalytic activity/Vol] 58 U/L Normal 38-113 [facility] Comment on above: Order Comment: Speci men Type: BLOOD SPECIMENOrdering Facility: [facility] Address: [address] [place] [address] Performed By: #### 2 4323-8 ####[facility] [id number] [place] [address] [place] ALT [Catalytic activity/Vol] 17 U/L Normal 10-54 [facility] Comment on above: Order Comment: Speci men Type: BLOOD SPECIMENOrdering Facility: [facility] Address: [address] [place] [address] Performed By: #### 2 4323-8 ####[facility] [id number] [place] [address] [place] Anion gap [Moles/Vol] 9 mmol/L Normal 9-18 [facility] Comment on above: Order Comment: Speci men Type: BLOOD SPECIMENOrdering Facility: [facility] Address: [address] [place] [address] Performed By: #### 2 4323-8 ####[facility] [id number] [place] [address] [place] AST [Catalytic activity/Vol] 24 U/L Normal 14-40 [facility] Comment on above: Order Comment: Speci men Type: BLOOD SPECIMENOrdering Facility: [facility] Address: [address] [place] [address] Performed By: #### 2 4323-8 ####[facility] [id number] [place] [address] [place] Bilirubin [Mass/Vol] 0.5 mg/dL Normal 0.2-1.3 [facility] Comment on above: Order Comment: Speci men Type: BLOOD SPECIMENOrdering Facility: [facility] Address: [address] [place] [address] Performed By: #### 2 4323-8 ####[facility] [id number] [place] [address] [place] Calcium [Mass/Vol] 8.8 mg/dL Normal 8.5-10.2 [facility] Comment on above: Order Comment: Speci men Type: BLOOD SPECIMENOrdering Facility: [facility] Address: [address] [place] [address] Performed By: #### 2 4323-8 ####[facility] [id number] [place] [address] [place] Chloride [Moles/Vol] 104 mmol/L Normal 97-105 [facility] Comment on above: Order Comment: Speci men Type: BLOOD SPECIMENOrdering Facility: [facility] Address: [address] [place] [address] Performed By: #### 2 4323-8 ####[facility] [id number] [place] [address] [place] CO2 [Moles/Vol] 27 mmol/L Normal 22-30 [facility] Comment on above: Order Comment: Speci men Type: BLOOD SPECIMENOrdering Facility: [facility] Address: [address] [place] [address] Performed By: #### 2 4323-8 ####[facility] [id number] [place] [address] [place] Creatinine [Mass/Vol] 0.98 mg/dL Normal 0.73-1.22 [facility] Comment on above: Order Comment: Speci men Type: BLOOD SPECIMENOrdering Facility: [facility] Address: [address] [place] [address] Performed By: #### 2 4323-8 ####[facility] [id number] [place] [address] [place] Creatinine and Glomerular filtration rate.predicted panel (S/P/Bld) 89 mL/min/1.73m??? Normal >=60 [facility] Comment on above: Order Comment: Abhishek flores Type: BLOOD SPECIMENOrdering Facility: [facility] Address: [address] [place] [address] Result Comment: Romi mated Glomerular Filtration Rate (eGFR) is calculated using the 2020 CKD-EPI creatinine equation. This equation utilizes serum creatinine, sex, and age as parameters. The creatinine assay has traceable calibration to isotope dilution-mass spectrometry. Refer to KDIGO guidelines for clinical interpretation. In patients with unstable renal function, e.g. those with acute kidney injury, the eGFR may not accurately reflect actual GFR. Performed By: #### 2 4323-8 ####[facility] [id number] [place] [address] [place] Glucose [Mass/Vol] 123 mg/dL High 74-99 [facility] Comment on above: Order Comment: Abhishek flores Type: BLOOD SPECIMENOrdering Facility: [facility] Address: [address] [place] [address] Result Comment: The [place] [employer] (ADA) provides guidance for cutoff values for fasting glucose and random glucose. The ADA defines fasting as no caloric intake for at least 8 hours. Fasting plasma glucose results between 100 to 125 mg/dL indicate increased risk for diabetes (prediabetes).Fasting plasma glucose results greater than or equal to 126 mg/dL meet the criteria for diagnosis of diabetes. In the absence of unequivocal hyperglycemia, results should be confirmed by repeat testing. In a patient with classic symptoms of hyperglycemia or hyperglycemic crisis, random plasma glucose results greater than or equal to 200 mg/dL meet the criteria for diagnosis of diabetes.Reference: Standards of Medical Care in Diabetes 2016, [place] [employer]. Diabetes Care. 2016.39(Suppl 1). Performed By: #### 2 4323-8 ####[facility] [id number] [place] [address] [place] Potassium [Moles/Vol] 4.1 mmol/L Normal 3.7-5.1 [facility] Comment on above: Order Comment: Speci men Type: BLOOD SPECIMENOrdering Facility: [facility] Address: [address] [place] [address] Performed By: #### 2 4323-8 ####[facility] [id number] [place] [address] [place] Protein [Mass/Vol] 6.8 g/dL Normal 6.3-8.0 [facility] Comment on above: Order Comment: Speci men Type: BLOOD SPECIMENOrdering Facility: [facility] Address: [address] [place] [address] Performed By: #### 2 4323-8 ####[facility] [id number] [place] [address] [place] Sodium [Moles/Vol] 140 mmol/L Normal 136-144 [facility] Comment on above: Order Comment: Speci men Type: BLOOD SPECIMENOrdering Facility: [facility] Address: [address] [place] [address] Performed By: #### 2 4323-8 ####[facility] [id number] [place] [address] [place] Urea nitrogen [Mass/Vol] 17 mg/dL Normal 9-24 [facility] Comment on above: Order Comment: Speci men Type: BLOOD SPECIMENOrdering Facility: [facility] Address: [address] [place] [address] Performed By: #### 2 4323-8 ####[facility] [id number] [place] [address] [place] [id number] 12-02-2022 ECG01 Normal [facility] MANUAL SCAN/DIFFon 3 ANC (SEG + BAND) MANUAL DIFF 10.05 k/uL High 1.45-7.50 [facility] Comment on above: Order Comment: Speci men Type: BLOOD SPECIMENOrdering Facility: [facility] Address: [address] [place] [address] Performed By: #### 5 7021-8, [id number] ####[facility] [id number] [place] [address] [place] ANISOCYTOSIS Present Normal [facility] Comment on above: Order Comment: Speci men Type: BLOOD SPECIMENOrdering Facility: [facility] Address: [address] [place] [address] Performed By: #### 5 7021-8, [id number] ####[facility] [id number] [place] [address] [place] Basophils (Bld) [#/Vol] 0.48 10*3/uL High <0.11 [facility] Comment on above: Order Comment: Speci men Type: BLOOD SPECIMENOrdering Facility: [facility] Address: [address] [place] [address] Performed By: #### 5 7021-8, [id number] ####[facility] [id number] [place] [address] [place] Basophils/100 WBC (Bld) 4.0 % Normal [facility] Comment on above: Order Comment: Speci men Type: BLOOD SPECIMENOrdering Facility: [facility] Address: [address] [place] [address] Performed By: #### 5 7021-8, [id number] ####[facility] [id number] [place] [address] [place] CELLS COUNTED 100 Counted Normal [facility] Comment on above: Order Comment: Speci men Type: BLOOD SPECIMENOrdering Facility: [facility] Address: [address] [place] [address] Performed By: #### 5 7021-8, [id number] ####[facility] [id number] [place] [address] [place] Dacrocytes LM Ql (Bld) Few Normal [facility] Comment on above: Order Comment: Speci men Type: BLOOD SPECIMENOrdering Facility: [facility] Address: [address] [place] [address] Performed By: #### 5 7021-8, [id number] ####[facility] [id number] [place] [address] [place] Eosinophils (Bld) [#/Vol] 0.36 10*3/uL Normal <0.46 [facility] Comment on above: Order Comment: Speci men Type: BLOOD SPECIMENOrdering Facility: [facility] Address: [address] [place] [address] Performed By: #### 5 7021-8, [id number] ####[facility] [id number] [place] [address] [place] Eosinophils/100 WBC (Bld) 3.0 % Normal [facility] Comment on above: Order Comment: Speci men Type: BLOOD SPECIMENOrdering Facility: [facility] Address: [address] [place] [address] Performed By: #### 5 7021-8, [id number] ####[facility] [id number] [place] [address] [place] Lymphocytes (Bld) [#/Vol] 0.48 10*3/uL Low 1.00-4.00 [facility] Comment on above: Order Comment: Speci men Type: BLOOD SPECIMENOrdering Facility: [facility] Address: [address] [place] [address] Performed By: #### 5 7021-8, [id number] ####[facility] [id number] [place] [address] [place] Lymphocytes/100 WBC (Bld) 4.0 % Normal [facility] Comment on above: Order Comment: Speci men Type: BLOOD SPECIMENOrdering Facility: [facility] Address: [address] [place] [address] Performed By: #### 5 7021-8, [id number] ####[facility] [id number] [place] [address] [place] Monocytes (Bld) [#/Vol] 0.48 10*3/uL Normal <0.87 [facility] Comment on above: Order Comment: Speci men Type: BLOOD SPECIMENOrdering Facility: [facility] Address: [address] [place] [address] Performed By: #### 5 7021-8, [id number] ####[facility] [id number] [place] [address] [place] Monocytes/100 WBC (Bld) 4.0 % Normal [facility] Comment on above: Order Comment: Speci men Type: BLOOD SPECIMENOrdering Facility: [facility] Address: [address] [place] [address] Performed By: #### 5 7021-8, [id number] ####[facility] [id number] [place] [address] [place] Myelocytes/100 WBC (Bld) 2.0 % Normal [facility] Comment on above: Order Comment: Speci men Type: BLOOD SPECIMENOrdering Facility: [facility] Address: [address] [place] [address] Performed By: #### 5 7021-8, [id number] ####[facility] [id number] [place] [address] [place] Neutrophils/100 WBC (Bld) 83.0 % Normal [facility] Comment on above: Order Comment: Speci men Type: BLOOD SPECIMENOrdering Facility: [facility] Address: [address] [place] [address] Performed By: #### 5 7021-8, [id number] ####[facility] [id number] [place] [address] [place] Ovalocytes LM Ql (Bld) Few Normal [facility] Comment on above: Order Comment: Speci men Type: BLOOD SPECIMENOrdering Facility: [facility] Address: [address] [place] [address] Performed By: #### 5 7021-8, [id number] ####[facility] [id number] [place] [address] [place] Platelets Estimate (Bld) [#/Vol] Increased Normal [facility] Comment on above: Order Comment: Speci men Type: BLOOD SPECIMENOrdering Facility: [facility] Address: [address] [place] [address] Performed By: #### 5 7021-8, [id number] ####[facility] [id number] [place] [address] [place] Polychromasia LM Ql (Bld) Slight Normal [facility] Comment on above: Order Comment: Speci men Type: BLOOD SPECIMENOrdering Facility: [facility] Address: [address] [place] [address] Performed By: #### 5 7021-8, [id number] ####[facility] [id number] [place] [address] [place] RBC FRAGMENTS Few Abnormal None Seen [facility] Comment on above: Order Comment: Speci men Type: BLOOD SPECIMENOrdering Facility: [facility] Address: [address] [place] [address] Performed By: #### 5 7021-8, [id number] ####[facility] [id number] [place] [address] [place] RBC morphology finding Nom (Bld) Reviewed: see results of individual morphologies Normal [facility] Comment on above: Order Comment: Speci men Type: BLOOD SPECIMENOrdering Facility: [facility] Address: [address] [place] [address] Performed By: #### 5 7021-8, [id number] ####[facility] [id number] [place] [address] [place] WBC Left Shift Ql (Bld) Present Normal [facility] Comment on above: Order Comment: Speci men Type: BLOOD SPECIMENOrdering Facility: [facility] Address: [address] [place] [address] Performed By: #### 5 7021-8, [id number] ####[facility] [id number] [place] [address] [place] CBC W Auto Differential pane l (Bld)on 10-07-2022 Anisocytosis Ql (Bld) Present Normal [facility] Comment on above: Order Comment: Speci men Type: BLOOD SPECIMENOrdering Facility: [facility] Address: [address] [place] [address] Performed By: #### 5 7021-8 ####[facility] [id number] [place] [address] [place] Basophils (Bld) [#/Vol] 0.41 10*3/uL High <0.11 [facility] Comment on above: Order Comment: Speci men Type: BLOOD SPECIMENOrdering Facility: [facility] Address: [address] [place] [address] Performed By: #### 5 7021-8 ####[facility] [id number] [place] [address] [place] Basophils/100 WBC (Bld) 4.0 % Normal [facility] Comment on above: Order Comment: Speci men Type: BLOOD SPECIMENOrdering Facility: [facility] Address: [address] [place] [address] Performed By: #### 5 7021-8 ####[facility] [id number] [place] [address] [place] Differential cell count method Nom (Bld) Manual Normal [facility] Comment on above: Order Comment: Speci men Type: BLOOD SPECIMENOrdering Facility: [facility] Address: [address] [place], [place] [address] Performed By: #### 5 7021-8 ####[facility] [id number] [address] [place] Eosinophils (Bld) [#/Vol] 0.52 10*3/uL High <0.46 [facility] Comment on above: Order Comment: Speci men Type: BLOOD SPECIMENOrdering Facility: [facility] Address: [address] [place] [address] Performed By: #### 5 7021-8 ####[facility] [id number] [place] [address] OF [facility] Eosinophils/100 WBC (Bld) 5.0 % Normal [facility] Comment on above: Order Comment: Speci men Type: BLOOD SPECIMENOrdering Facility: [facility] Address: [address] [place] [address] Performed By: #### 5 7021-8 ####[facility] [id number] [place] [address] [place] Erythrocyte distribution width (RBC) [Ratio] 20.4 % High 11.5-15.0 [facility] Comment on above: Order Comment: Speci men Type: BLOOD SPECIMENOrdering Facility: [facility] Address: [address] [place] [address] Performed By: #### 5 7021-8 ####[facility] [id number] [place] [address] [place] Hematocrit (Bld) [Volume fraction] 41.2 % Normal 39.0-51.0 [facility] Comment on above: Order Comment: Speci men Type: BLOOD SPECIMENOrdering Facility: [facility] Address: [address] [place] [address] Performed By: #### 5 7021-8 ####[facility] [id number] [place] [address] [place] Hemoglobin (Bld) [Mass/Vol] 10.8 g/dL Low 13.0-17.0 [facility] Comment on above: Order Comment: Speci men Type: BLOOD SPECIMENOrdering Facility: [facility] Address: [address] [place] [address] Performed By: #### 5 7021-8 ####[facility] [id number] [place] [address] [place] Lymphocytes (Bld) [#/Vol] 1.24 10*3/uL Normal 1.00-4.00 [facility] Comment on above: Order Comment: Speci men Type: BLOOD SPECIMENOrdering Facility: [facility] Address: [address] [place] [address] Performed By: #### 5 7021-8 ####[facility] [id number] [place] [address] STATES OF [facility] Lymphocytes/100 WBC (Bld) 12.0 % Normal [facility] Comment on above: Order Comment: Speci men Type: BLOOD SPECIMENOrdering Facility: [facility] Address: [address] [place] [address] Performed By: #### 5 7021-8 ####[facility] [id number] [place] [address] [place] MCH (RBC) [Entitic mass] 19.2 pg Low 26.0-34.0 [facility] Comment on above: Order Comment: Speci men Type: BLOOD SPECIMENOrdering Facility: [facility] Address: [address] [place] [address] Performed By: #### 5 7021-8 ####[facility] [id number] [place] [address] [place] MCHC (RBC) [Mass/Vol] 26.2 g/dL Low 30.5-36.0 [facility] Comment on above: Order Comment: Speci men Type: BLOOD SPECIMENOrdering Facility: [facility] Address: [address] [place] [address] Performed By: #### 5 7021-8 ####[facility] [id number] [place] [address] STATES [facility] MCV (RBC) [Entitic vol] 73.3 fL Low 80.0-100.0 [facility] Comment on above: Order Comment: Speci men Type: BLOOD SPECIMENOrdering Facility: [facility] Address: [address] [place] [address] Performed By: #### 5 7021-8 ####[facility] [id number] [place] [address] Metamyelocytes/100 WBC (Bld) 1.0 % Normal [facility] Comment on above: Order Comment: Speci men Type: BLOOD SPECIMENOrdering Facility: [facility] Address: [address] [place] [address] Performed By: #### 5 7021-8 ####[facility] [id number] [place] [address] [place] Monocytes (Bld) [#/Vol] 0.31 10*3/uL Normal <0.87 [facility] Comment on above: Order Comment: Speci men Type: BLOOD SPECIMENOrdering Facility: [facility] Address: [address] [place], [place] [address] Performed By: #### 5 7021-8 ####[facility] [id number] [place] [address] Monocytes/100 WBC (Bld) 3.0 % Normal [facility] Comment on above: Order Comment: Speci men Type: BLOOD SPECIMENOrdering Facility: [facility] Address: [address] [place] [address] Performed By: #### 5 7021-8 ####[facility] [id number] [place] [address] [place] MYELO% 1.0 % Normal [facility] Comment on above: Order Comment: Speci men Type: BLOOD SPECIMENOrdering Facility: [facility] Address: [address] [place] [address] Performed By: #### 5 7021-8 ####[facility] [id number] [place] [address] [place] Neutrophils (Bld) [#/Vol] 7.67 10*3/uL High 1.45-7.50 [facility] Comment on above: Order Comment: Speci men Type: BLOOD SPECIMENOrdering Facility: [facility] Address: [address] [place] [address] Performed By: #### 5 7021-8 ####[facility] [id number] [place] [address] [place] Neutrophils/100 WBC (Bld) 74.0 % Normal [facility] Comment on above: Order Comment: Speci men Type: BLOOD SPECIMENOrdering Facility: [facility] Address: [address] [place] [address] Performed By: #### 5 7021-8 ####[facility] [id number] [place] [address] [place] Nucleated RBC (Bld) [#/Vol] 10*3/uL Normal <0.01 [facility] Comment on above: Order Comment: Speci men Type: BLOOD SPECIMENOrdering Facility: [facility] Address: [address] [place] [address] Performed By: #### 5 7021-8 ####[facility] [id number] [place] [address] [place] Nucleated RBC/100 WBC (Bld) [Ratio] 0.0 /100 WBC Normal [facility] Comment on above: Order Comment: Speci men Type: BLOOD SPECIMENOrdering Facility: [facility] Address: [address] [place] [address] Performed By: #### 5 7021-8 ####[facility] [id number] [place] [address] [place] Ovalocytes LM Ql (Bld) Few Normal [facility] Comment on above: Order Comment: Speci men Type: BLOOD SPECIMENOrdering Facility: [facility] Address: [address] [place] [address] Performed By: #### 5 7021-8 ####[facility] [id number] [place] [address] [place] Platelet mean volume (Bld) [Entitic vol] 8.3 fL Low 9.0-12.7 [facility] Comment on above: Order Comment: Speci men Type: BLOOD SPECIMENOrdering Facility: [facility] Address: [address] [place] [address] Performed By: #### 5 7021-8 ####[facility] [id number] [place] [address] [place] Platelets (Bld) [#/Vol] 764 10*3/uL High 150-400 [facility] Comment on above: Order Comment: Speci men Type: BLOOD SPECIMENOrdering Facility: [facility] Address: [address] [place] [address] Performed By: #### 5 7021-8 ####[facility] [id number] [place] [address] [place] Platelets Estimate (Bld) [#/Vol] Increased Normal [facility] Comment on above: Order Comment: Speci men Type: BLOOD SPECIMENOrdering Facility: [facility] Address: [address] [place] [address] Performed By: #### 5 7021-8 ####[facility] [id number] [address] [place] Polychromasia LM Ql (Bld) Slight Normal [facility] Comment on above: Order Comment: Speci men Type: BLOOD SPECIMENOrdering Facility: [facility] Address: [address] [place] [address] Performed By: #### 5 7021-8 ####[facility] [id number] [place] [address] [place] RBC (Bld) [#/Vol] 5.62 10*6/uL Normal 4.20-6.00 [facility] Comment on above: Order Comment: Speci men Type: BLOOD SPECIMENOrdering Facility: [facility] Address: [address] [place] [address] Performed By: #### 5 7021-8 ####[facility] [id number] [place] [address] [place] RBC FRAGMENTS Few Abnormal None Seen [facility] Comment on above: Order Comment: Speci men Type: BLOOD SPECIMENOrdering Facility: [facility] Address: [address] [place] [address] Performed By: #### 5 7021-8 ####[facility] [id number] [address] STATES OF [facility] RED CELL MORPH Reviewed: see result s of individual morphologies Normal [facility] Comment on above: Order Comment: Speci men Type: BLOOD SPECIMENOrdering Facility: [facility] Address: [address] [place] [address] Performed By: #### 5 7021-8 ####[facility] [id number] [place] [address] [place] WBC (Bld) [#/Vol] 10.37 10*3/uL Normal 3.70-11.00 [facility] Comment on above: Order Comment: Speci men Type: BLOOD SPECIMENOrdering Facility: [facility] Address: [address] [place] [address] Performed By: #### 5 7021-8 ####[facility] [id number] [place] [address] [place] WBC Left Shift Ql (Bld) Present Normal [facility] Comment on above: Order Comment: Speci men Type: BLOOD SPECIMENOrdering Facility: [facility] Address: [address] [place] [address] Performed By: #### 5 7021-8 ####[facility] [id number] [place] [address] [place] CNNURSEon 10-07-2022 CNNURSE Normal [facility] CNOVSPon 10-07-2022 CNOVSP Normal [facility] Comprehensive metabolic 2000 panelon 10-07-2022 Albumin [Mass/Vol] 4.5 g/dL Normal 3.9-4.9 [facility] Comment on above: Order Comment: Speci men Type: BLOOD SPECIMENOrdering Facility: [facility] Address: [address] [place] [address] Performed By: #### 2 4323-8, 44557-0 ####[facility] [id number] [place] [address] [place] ALP [Catalytic activity/Vol] 57 U/L Normal 38-113 [facility] Comment on above: Order Comment: Speci men Type: BLOOD SPECIMENOrdering Facility: [facility] Address: [address] Performed By: #### 2 4323-8, 30452-7 ####[facility] [id number] [place] [address] [place] ALT [Catalytic activity/Vol] 16 U/L Normal 10-54 [facility] Comment on above: Order Comment: Speci men Type: BLOOD SPECIMENOrdering Facility: [facility] Address: [address] [place] [address] Performed By: #### 2 4323-8, 07098-2 ####[facility] [id number] [place] [address] [place] Anion gap [Moles/Vol] 9 mmol/L Normal 9-18 [facility] Comment on above: Order Comment: Speci men Type: BLOOD SPECIMENOrdering Facility: [facility] Address: [address] [place] [address] Performed By: #### 2 4323-8, 38307-6 ####[facility] [id number] [place] [address] [place] AST [Catalytic activity/Vol] 20 U/L Normal 14-40 [facility] Comment on above: Order Comment: Speci men Type: BLOOD SPECIMENOrdering Facility: [facility] Address: [address] [place] [address] Performed By: #### 2 4323-8, 91396-8 ####[facility] [id number] [place] [address] [place] Bilirubin [Mass/Vol] 0.5 mg/dL Normal 0.2-1.3 [facility] Comment on above: Order Comment: Speci men Type: BLOOD SPECIMENOrdering Facility: [facility] Address: [address] [place] [address] Performed By: #### 2 4323-8, 53124-9 ####[facility] [id number] [place] [address] [place] Calcium [Mass/Vol] 9.2 mg/dL Normal 8.5-10.2 [facility] Comment on above: Order Comment: Speci men Type: BLOOD SPECIMENOrdering Facility: [facility] Address: [address] [place] [address] Performed By: #### 2 4323-8, 07211-7 ####[facility] [id number] [address] STATES OF [facility] Chloride [Moles/Vol] 104 mmol/L Normal 97-105 [facility] Comment on above: Order Comment: Speci men Type: BLOOD SPECIMENOrdering Facility: [facility] Address: [address] [place] [address] Performed By: #### 2 4323-8, 93160-1 ####[facility] [id number] [address] OF [facility] CO2 [Moles/Vol] 28 mmol/L Normal 22-30 [facility] Comment on above: Order Comment: Speci men Type: BLOOD SPECIMENOrdering Facility: [facility] Address: [address] [place] [address] Performed By: #### 2 4323-8, 08132-3 ####[facility] [id number] [address] Creatinine [Mass/Vol] 0.97 mg/dL Normal 0.73-1.22 [facility] Comment on above: Order Comment: Speci men Type: BLOOD SPECIMENOrdering Facility: [facility] Address: [address] [place] [address] Performed By: #### 2 4323-8, 97707-0 ####[facility] [id number] [address] Creatinine and Glomerular filtration rate.predicted panel (S/P/Bld) 90 mL/min/1.73m??? Normal >=60 [facility] Comment on above: Order Comment: Speci men Type: BLOOD SPECIMENOrdering Facility: [facility] Address: [address] [place] [address] Result Comment: Romi mated Glomerular Filtration Rate (eGFR) is calculated using the 2020 CKD-EPI creatinine equation. This equation utilizes serum creatinine, sex, and age as parameters. The creatinine assay has traceable calibration to isotope dilution-mass spectrometry. Refer to KDIGO guidelines for clinical interpretation. In patients with unstable renal function, e.g. those with acute kidney injury, the eGFR may not accurately reflect actual GFR. Performed By: #### 2 4323-8, 10859-0 ####[facility] [id number] [place] [address] [place] Glucose [Mass/Vol] 106 mg/dL High 74-99 [facility] Comment on above: Order Comment: Speci men Type: BLOOD SPECIMENOrdering Facility: [facility] Address: [address] [place] [id number] Result Comment: The [place] [employer] (ADA) provides guidance for cutoff values for fasting glucose and random glucose. The ADA defines fasting as no caloric intake for at least 8 hours. Fasting plasma glucose results between 100 to 125 mg/dL indicate increased risk for diabetes (prediabetes).Fasting plasma glucose results greater than or equal to 126 mg/dL meet the criteria for diagnosis of diabetes. In the absence of unequivocal hyperglycemia, results should be confirmed by repeat testing. In a patient with classic symptoms of hyperglycemia or hyperglycemic crisis, random plasma glucose results greater than or equal to 200 mg/dL meet the criteria for diagnosis of diabetes.Reference: Standards of Medical Care in Diabetes 2016, [place] [employer]. Diabetes Care. 2016.39(Suppl 1). Performed By: #### 2 4323-8, 07186-7 ####[facility] [id number] [place] [address] [place] Potassium [Moles/Vol] 4.9 mmol/L Normal 3.7-5.1 [facility] Comment on above: Order Comment: Speci men Type: BLOOD SPECIMENOrdering Facility: [facility] Address: [address] [place] [address] Performed By: #### 2 4323-8, 28233-5 ####[facility] [id number] [place] [address] [place] Protein [Mass/Vol] 6.7 g/dL Normal 6.3-8.0 [facility] Comment on above: Order Comment: Speci men Type: BLOOD SPECIMENOrdering Facility: [facility] Address: [address] [place] [address] Performed By: #### 2 4323-8, 89139-5 ####[facility] [id number] [place] [address] [place] Sodium [Moles/Vol] 141 mmol/L Normal 136-144 [facility] Comment on above: Order Comment: Speci men Type: BLOOD SPECIMENOrdering Facility: [facility] Address: [address] [place] [address] Performed By: #### 2 4323-8, 34147-8 ####[facility] [id number] [place] [address] [place] Urea nitrogen [Mass/Vol] 17 mg/dL Normal 9-24 [facility] Comment on above: Order Comment: Speci men Type: BLOOD SPECIMENOrdering Facility: [facility] Address: [address] [place] [address] Performed By: #### 2 4323-8, 68038-2 ####[facility] [id number] [place] [address] [place] Lipid 1996 panelon 3 Cholesterol [Mass/Vol] 122 mg/dL Normal <200 [facility] Comment on above: Order Comment: Speci men Type: BLOOD SPECIMENOrdering Facility: [facility] Address: [address] [place] [address] Result Comment: <200 mg/dL, Desirable 200-239 mg/dL, Borderline high>239 mg/dL, High Performed By: #### 2 4323-8, 73071-3 ####[facility] [id number] [place] [address] [place] Cholesterol in HDL [Mass/Vol] 38 mg/dL Low >39 [facility] Comment on above: Order Comment: Speci men Type: BLOOD SPECIMENOrdering Facility: [facility] Address: [address] [place] [address] Result Comment: 40-5 9 mg/dL, Acceptable>59 mg/dL, High: Negative risk factor for coronary heart disease<40 mg/dL, Low: Positive risk factor for coronary heart disease Performed By: #### 2 4323-8, 46673-0 ####[facility] [id number] [place] [address] [place] Cholesterol in LDL [Mass/Vol] 63 mg/dL Normal <100 [facility] Comment on above: Order Comment: Speci men Type: BLOOD SPECIMENOrdering Facility: [facility] Address: [address] [place] [address] Result Comment: <100 mg/dL, Optimal 100-129 mg/dL, Near optimal/above optimal 130-159 mg/dL, Borderline high 160-189 mg/dL, High>189 mg/dL, Very highSecondary prevention optimal LDL Cholesterol levels are recommended to be < 70 mg/dL Performed By: #### 2 4323-8, 33757-2 ####[facility] [id number] [place] [address] [place] Cholesterol in LDL/Cholesterol in HDL [Mass ratio] 1.66 {ratio} Normal <2.54 [facility] Comment on above: Order Comment: Speci men Type: BLOOD SPECIMENOrdering Facility: [facility] Address: [address] [place] [address] Result Comment: Refe rence:1. National Cholesterol Education Program ATP III Guideline At-A-Glance Quick Desk Reference: National Heart, Lung, and Blood Gary. National Institutes of Health. 2001: NIH Publication No. 01-3305.2. An International Atherosclerosis Society position paper: global recommendations for the management of dyslipidemia: executive summary, Atherosclerosis. 2014: 232(2):410-413. Performed By: #### 2 4323-8, 15619-5 ####[facility] [id number] [place] [address] [place] Cholesterol in VLDL [Mass/Vol] 21 mg/dL Normal <30 [facility] Comment on above: Order Comment: Speci men Type: BLOOD SPECIMENOrdering Facility: [facility] Address: [address] [place] [address] Performed By: #### 2 4323-8, 00627-8 ####[facility] [id number] [place] [address] [place] Cholesterol non HDL [Mass/Vol] 84 mg/dL Normal <130 [facility] Comment on above: Order Comment: Speci men Type: BLOOD SPECIMENOrdering Facility: [facility] Address: [address] [place] [address] Result Comment: <130 mg/dL, Optimal 130-159 mg/dL, Near optimal/above optimal 160-189 mg/dL, Borderline high 190-219 mg/dL, High>219 mg/dL, Very highSecondary prevention optimal non HDL Cholesterol levels are recommended to be <100 mg/dL Performed By: #### 2 4323-8, 71464-6 ####[facility] [id number] [place] [address] [place] Cholesterol.total/ Cholesterol in HDL [Mass ratio] 3.21 {ratio} Normal <5.10 [facility] Comment on above: Order Comment: Speci men Type: BLOOD SPECIMENOrdering Facility: [facility] Address: [address] [place] [address] Performed By: #### 2 4323-8, 22323-0 ####[facility] [id number] [place] [address] [place] FASTING TIME 4 hrs Normal [facility] Comment on above: Order Comment: Speci men Type: BLOOD SPECIMENOrdering Facility: [facility] Address: [address] [place] [address] Performed By: #### 2 4323-8, 20532-7 ####[facility] [id number] [place] [address] [place] Triglyceride [Mass/Vol] 106 mg/dL Normal <150 [facility] Comment on above: Order Comment: Speci men Type: BLOOD SPECIMENOrdering Facility: [facility] Address: [address] [place] [address] Result Comment: <150 mg/dL, Normal 150-199 mg/dL, Borderline high 200-499 mg/dL, High>499 mg/dL, Very high Performed By: #### 2 4323-8, 36149-1 ####[facility] LABIA [id number] [place] [address] [place] PSA/PROSTSPECAG SCRNon 10-07 Prostate specific Ag [Mass/Vol] 1.71 ng/mL Normal <2.60 [facility] Comment on above: Order Comment: Speci men Type: BLOOD SPECIMENOrdering Facility: [facility] Address: [address] [place] [address] Result Comment: Tota l PSA test methodology used is the Electrochemiluminescence Immunoassay by [employer]. Total PSA values by differing methodologies cannot be interchanged. Performed By: #### P SAS1 ####[facility] LABCLIA [id number] [place] [address] [place] CBC W Auto Differential pane l (Bld)on 09-10-2022 Basophils (Bld) [#/Vol] 0.15 10*3/uL High <0.11 [facility] Comment on above: Order Comment: Speci men Type: BLOOD SPECIMENOrdering Facility: [facility] Address: [address] [address] Performed By: #### 5 7021-8 ####[facility] LABCLIA [id number] [place] [id number] Basophils/100 WBC (Bld) 1.4 % Normal [facility] Comment on above: Order Comment: Speci men Type: BLOOD SPECIMENOrdering Facility: [facility] Address: [address] Performed By: #### 5 7021-8 ####[facility] LABCLIA [id number] [place] [address] Differential cell count method Nom (Bld) Auto Normal [facility] Comment on above: Order Comment: Speci men Type: BLOOD SPECIMENOrdering Facility: [facility] Address: [address] [place] [address] Performed By: #### 5 7021-8 ####[facility] LABCLIA [id number] [place] [address] Eosinophils (Bld) [#/Vol] 0.32 10*3/uL Normal <0.46 [facility] Comment on above: Order Comment: Speci men Type: BLOOD SPECIMENOrdering Facility: [facility] Address: [address] [place] [address] Performed By: #### 5 7021-8 ####[facility] LABCLIA [id number] [place] [address] Eosinophils/100 WBC (Bld) 3.1 % Normal [facility] Comment on above: Order Comment: Speci men Type: BLOOD SPECIMENOrdering Facility: [facility] Address: [address] [place] [address] Performed By: #### 5 7021-8 ####[facility] LABCLIA [id number] [place] [address] Erythrocyte distribution width (RBC) [Ratio] 21.2 % High 11.5-15.0 [facility] Comment on above: Order Comment: Speci men Type: BLOOD SPECIMENOrdering Facility: [facility] Address: [address] [place] [address] Performed By: #### 5 7021-8 ####[facility] LABIA [id number] [place] [address] Hematocrit (Bld) [Volume fraction] 37.5 % Low 39.0-51.0 [facility] Comment on above: Order Comment: Speci men Type: BLOOD SPECIMENOrdering Facility: [facility] Address: [address] [address] Performed By: #### 5 7021-8 ####[facility] LABCLIA [id number] [place] [address] Hemoglobin (Bld) [Mass/Vol] 10.2 g/dL Low 13.0-17.0 [facility] Comment on above: Order Comment: Speci men Type: BLOOD SPECIMENOrdering Facility: [facility] Address: [address] [place] [address] Performed By: #### 5 7021-8 ####[facility] LABIA [id number] [place] [address] Immature granulocytes (Bld) [#/Vol] 0.16 10*3/uL High <0.10 [facility] Comment on above: Order Comment: Speci men Type: BLOOD SPECIMENOrdering Facility: [facility] Address: [address] [place] [address] Performed By: #### 5 7021-8 ####[facility] LABIA [id number] [place] [address] Immature granulocytes/100 WBC (Bld) 1.5 % Normal [facility] Comment on above: Order Comment: Speci men Type: BLOOD SPECIMENOrdering Facility: [facility] Address: [address] [place] [address] Performed By: #### 5 7021-8 ####[facility] LABIA [id number] [place] [address] Lymphocytes (Bld) [#/Vol] 1.06 10*3/uL Normal 1.00-4.00 [facility] Comment on above: Order Comment: Speci men Type: BLOOD SPECIMENOrdering Facility: [facility] Address: [address] [place] [address] Performed By: #### 5 7021-8 ####[facility] LABCLIA [id number] [place] [address] Lymphocytes/100 WBC (Bld) 10.2 % Normal [facility] Comment on above: Order Comment: Speci men Type: BLOOD SPECIMENOrdering Facility: [facility] Address: [address] [place] [address] Performed By: #### 5 7021-8 ####[facility] LABCLIA [id number] [place] [address] MCH (RBC) [Entitic mass] 19.5 pg Low 26.0-34.0 [facility] Comment on above: Order Comment: Speci men Type: BLOOD SPECIMENOrdering Facility: [facility] Address: [address] [place] [address] Performed By: #### 5 7021-8 ####[facility] LABCLIA [id number] [place] [address] MCHC (RBC) [Mass/Vol] 27.2 g/dL Low 30.5-36.0 [facility] Comment on above: Order Comment: Speci men Type: BLOOD SPECIMENOrdering Facility: [facility] Address: [address] [place] [address] Performed By: #### 5 7021-8 ####[facility] LABCLIA [id number] [place] [address] MCV (RBC) [Entitic vol] 71.7 fL Low 80.0-100.0 [facility] Comment on above: Order Comment: Speci men Type: BLOOD SPECIMENOrdering Facility: [facility] Address: [address] [place] [address] Performed By: #### 5 7021-8 ####[facility] LABIA [id number] [place] [address] Monocytes (Bld) [#/Vol] 0.39 10*3/uL Normal <0.87 [facility] Comment on above: Order Comment: Speci men Type: BLOOD SPECIMENOrdering Facility: [facility] Address: [address] [place] [address] Performed By: #### 5 7021-8 ####[facility] LABCLIA [id number] [place] [address] Monocytes/100 WBC (Bld) 3.7 % Normal [facility] Comment on above: Order Comment: Speci men Type: BLOOD SPECIMENOrdering Facility: [facility] Address: [address] [place] [address] Performed By: #### 5 7021-8 ####[facility] LABCLIA [id number] [place] [address] Neutrophils (Bld) [#/Vol] 8.33 10*3/uL High 1.45-7.50 [facility] Comment on above: Order Comment: Speci men Type: BLOOD SPECIMENOrdering Facility: [facility] Address: [address] [place] [address] Performed By: #### 5 7021-8 ####[facility] LABCLIA [id number] [place] [address] Neutrophils/100 WBC (Bld) 80.1 % Normal [facility] Comment on above: Order Comment: Speci men Type: BLOOD SPECIMENOrdering Facility: [facility] Address: [address] [place] [address] Performed By: #### 5 7021-8 ####[facility] LABCLIA [id number] [place] [address] Nucleated RBC (Bld) [#/Vol] 10*3/uL Normal <0.01 [facility] Comment on above: Order Comment: Speci men Type: BLOOD SPECIMENOrdering Facility: [facility] Address: [address] [place], [place] [address] Performed By: #### 5 7021-8 ####[facility] LABCLIA [id number] [place] [address] Nucleated RBC/100 WBC (Bld) [Ratio] 0.0 /100 WBC Normal [facility] Comment on above: Order Comment: Speci men Type: BLOOD SPECIMENOrdering Facility: [facility] Address: [address] [place] [address] Performed By: #### 5 7021-8 ####[facility] LABCLIA [id number] [place] [address] Platelet mean volume (Bld) [Entitic vol] 8.0 fL Low 9.0-12.7 [facility] Comment on above: Order Comment: Speci men Type: BLOOD SPECIMENOrdering Facility: [facility] Address: [address] [place] [address] Performed By: #### 5 7021-8 ####[facility] LABCLIA [id number] [place] [address] Platelets (Bld) [#/Vol] 763 10*3/uL High 150-400 [facility] Comment on above: Order Comment: Speci men Type: BLOOD SPECIMENOrdering Facility: [facility] Address: [address] [place] [address] Performed By: #### 5 7021-8 ####[facility] LABCLIA [id number] [place] [address] RBC (Bld) [#/Vol] 5.23 10*6/uL Normal 4.20-6.00 [facility] Comment on above: Order Comment: Speci men Type: BLOOD SPECIMENOrdering Facility: [facility] Address: [address] [place] [address] Performed By: #### 5 7021-8 ####[facility] LABIA [id number] [place] [address] WBC (Bld) [#/Vol] 10.41 10*3/uL Normal 3.70-11.00 [facility] Comment on above: Order Comment: Speci men Type: BLOOD SPECIMENOrdering Facility: [facility] Address: [address] [place] [address] Performed By: #### 5 7021-8 ####[facility] LABIA [id number] [place] [id number] CNPNon 09-10-2022 CNPN Normal [facility] CBC W Auto Differential pane l (Bld)on 08-13-2022 Basophils (Bld) [#/Vol] 0.17 10*3/uL High <0.11 [facility] Comment on above: Order Comment: Speci men Type: BLOOD SPECIMENOrdering Facility: [facility] Address: [address] [address] Performed By: #### 5 7021-8 ####[facility] [id number] [place] [address] [place] Basophils/100 WBC (Bld) 1.7 % Normal [facility] Comment on above: Order Comment: Speci men Type: BLOOD SPECIMENOrdering Facility: [facility] Address: [address] [place] [address] Performed By: #### 5 7021-8 ####[facility] [id number] [place] [address] [place] Differential cell count method Nom (Bld) Auto Normal [facility] Comment on above: Order Comment: Speci men Type: BLOOD SPECIMENOrdering Facility: [facility] Address: [address] [place], [place] [address] Performed By: #### 5 7021-8 ####[facility] [id number] [place] [address] [place] Eosinophils (Bld) [#/Vol] 0.31 10*3/uL Normal <0.46 [facility] Comment on above: Order Comment: Speci men Type: BLOOD SPECIMENOrdering Facility: [facility] Address: [address] [place], [place] [address] Performed By: #### 5 7021-8 ####[facility] [id number] [address] [place] Eosinophils/100 WBC (Bld) 3.1 % Normal [facility] Comment on above: Order Comment: Speci men Type: BLOOD SPECIMENOrdering Facility: [facility] Address: [address] [place] [address] Performed By: #### 5 7021-8 ####[facility] [id number] [place] [address] [place] Erythrocyte distribution width (RBC) [Ratio] 20.5 % High 11.5-15.0 [facility] Comment on above: Order Comment: Speci men Type: BLOOD SPECIMENOrdering Facility: [facility] Address: [address] [place] [address] Performed By: #### 5 7021-8 ####[facility] [id number] [place] [address] [place] Hematocrit (Bld) [Volume fraction] 40.0 % Normal 39.0-51.0 [facility] Comment on above: Order Comment: Speci men Type: BLOOD SPECIMENOrdering Facility: [facility] Address: [address] [place] [address] Performed By: #### 5 7021-8 ####[facility] [id number] [place] [address] [place] Hemoglobin (Bld) [Mass/Vol] 10.6 g/dL Low 13.0-17.0 [facility] Comment on above: Order Comment: Speci men Type: BLOOD SPECIMENOrdering Facility: [facility] Address: [address] [place] [address] Performed By: #### 5 7021-8 ####[facility] [id number] [place] [address] [place] Immature granulocytes (Bld) [#/Vol] 0.09 10*3/uL Normal <0.10 [facility] Comment on above: Order Comment: Speci men Type: BLOOD SPECIMENOrdering Facility: [facility] Address: [address] [address] Performed By: #### 5 7021-8 ####[facility] [id number] [place] [address] Immature granulocytes/100 WBC (Bld) 0.9 % Normal [facility] Comment on above: Order Comment: Speci men Type: BLOOD SPECIMENOrdering Facility: [facility] Address: [address] [address] Performed By: #### 5 7021-8 ####[facility] [id number] [place] [address] [place] Lymphocytes (Bld) [#/Vol] 0.87 10*3/uL Low 1.00-4.00 [facility] Comment on above: Order Comment: Speci men Type: BLOOD SPECIMENOrdering Facility: [facility] Address: [address] [address] Performed By: #### 5 7021-8 ####[facility] [id number] [place] [address] Lymphocytes/100 WBC (Bld) 8.6 % Normal [facility] Comment on above: Order Comment: Speci men Type: BLOOD SPECIMENOrdering Facility: [facility] Address: [address] Performed By: #### 5 7021-8 ####[facility] [id number] [place] [address] [place] MCH (RBC) [Entitic mass] 18.9 pg Low 26.0-34.0 [facility] Comment on above: Order Comment: Speci men Type: BLOOD SPECIMENOrdering Facility: [facility] Address: [address] [address] Performed By: #### 5 7021-8 ####[facility] [id number] [place] [address] [place] MCHC (RBC) [Mass/Vol] 26.5 g/dL Low 30.5-36.0 [facility] Comment on above: Order Comment: Speci men Type: BLOOD SPECIMENOrdering Facility: [facility] Address: [address] [place] [address] Performed By: #### 5 7021-8 ####[facility] [id number] [place] [address] [place] [facility] MCV (RBC) [Entitic vol] 71.3 fL Low 80.0-100.0 [facility] Comment on above: Order Comment: Speci men Type: BLOOD SPECIMENOrdering Facility: [facility] Address: [address] [place] [address] Performed By: #### 5 7021-8 ####[facility] [id number] [place] [address] [place] Monocytes (Bld) [#/Vol] 0.37 10*3/uL Normal <0.87 [facility] Comment on above: Order Comment: Speci men Type: BLOOD SPECIMENOrdering Facility: [facility] Address: [address] [place] [address] Performed By: #### 5 7021-8 ####[facility] [id number] [place] [address] Monocytes/100 WBC (Bld) 3.7 % Normal [facility] Comment on above: Order Comment: Speci men Type: BLOOD SPECIMENOrdering Facility: [facility] Address: [address] [place] [address] Performed By: #### 5 7021-8 ####[facility] [id number] [place] [address] [place] Neutrophils (Bld) [#/Vol] 8.26 10*3/uL High 1.45-7.50 [facility] Comment on above: Order Comment: Speci men Type: BLOOD SPECIMENOrdering Facility: [facility] Address: [address] Performed By: #### 5 7021-8 ####[facility] [id number] [place] [address] STATES [facility] Neutrophils/100 WBC (Bld) 82.0 % Normal [facility] Comment on above: Order Comment: Speci men Type: BLOOD SPECIMENOrdering Facility: [facility] Address: [address] Performed By: #### 5 7021-8 ####[facility] [place] [id number] [place] [address] [place] Nucleated RBC (Bld) [#/Vol] 10*3/uL Normal <0.01 [facility] Comment on above: Order Comment: Speci men Type: BLOOD SPECIMENOrdering Facility: [facility] Address: [address] Performed By: #### 5 7021-8 ####[facility] [place] [id number] [place] [address] [place] Nucleated RBC/100 WBC (Bld) [Ratio] 0.0 /100 WBC Normal [facility] Comment on above: Order Comment: Speci men Type: BLOOD SPECIMENOrdering Facility: [facility] Address: [address] Performed By: #### 5 7021-8 ####[facility] [id number] [place] [address] [place] Platelet mean volume (Bld) [Entitic vol] 8.4 fL Low 9.0-12.7 [facility] Comment on above: Order Comment: Speci men Type: BLOOD SPECIMENOrdering Facility: [facility] Address: [address] Performed By: #### 5 7021-8 ####[facility] [id number] [place] [address] [place] Platelets (Bld) [#/Vol] 794 10*3/uL High 150-400 [facility] Comment on above: Order Comment: Speci men Type: BLOOD SPECIMENOrdering Facility: [facility] Address: [address] [place], [place] [address] Performed By: #### 5 7021-8 ####[facility] [id number] [place] [address] [place] RBC (Bld) [#/Vol] 5.61 10*6/uL Normal 4.20-6.00 [facility] Comment on above: Order Comment: Speci men Type: BLOOD SPECIMENOrdering Facility: [facility] Address: [address] [place], [place] [address] Performed By: #### 5 7021-8 ####[facility] [id number] [place] [address] [place] WBC (Bld) [#/Vol] 10.07 10*3/uL Normal 3.70-11.00 [facility] Comment on above: Order Comment: Speci men Type: BLOOD SPECIMENOrdering Facility: [facility] Address: [address] [place], [place] [address] Performed By: #### 5 7021-8 ####[facility] [id number] [place] [address] [place] CNNURSEon 08-13-2022 CNNURSE Normal [facility] CNOVSPon 08-13-2022 CNOVSP Normal [facility] Comprehensive metabolic 2000 panelon 08-13-2022 Albumin [Mass/Vol] 4.5 g/dL Normal 3.9-4.9 [facility] Comment on above: Order Comment: Speci men Type: BLOOD SPECIMENOrdering Facility: [facility] Address: [address] [address] Performed By: #### 2 4323-8 ####[facility] [id number] [place] [address] [place] [facility] ALP [Catalytic activity/Vol] 57 U/L Normal 38-113 [facility] Comment on above: Order Comment: Speci men Type: BLOOD SPECIMENOrdering Facility: [facility] Address: [address] [place] [address] Performed By: #### 2 4323-8 ####[facility] [id number] [place] [address] ALT [Catalytic activity/Vol] 18 U/L Normal 10-54 [facility] Comment on above: Order Comment: Speci men Type: BLOOD SPECIMENOrdering Facility: [facility] Address: [address] [place] [address] Performed By: #### 2 4323-8 ####[facility] [id number] [place] [address] [place] Anion gap [Moles/Vol] 8 mmol/L Low 9-18 [facility] Comment on above: Order Comment: Speci men Type: BLOOD SPECIMENOrdering Facility: [facility] Address: [address] [place] [address] Performed By: #### 2 4323-8 ####[facility] [id number] [address] [place] AST [Catalytic activity/Vol] 22 U/L Normal 14-40 [facility] Comment on above: Order Comment: Speci men Type: BLOOD SPECIMENOrdering Facility: [facility] Address: [address] [place] [address] Performed By: #### 2 4323-8 ####[facility] [id number] [place] [address] [place] Bilirubin [Mass/Vol] 0.5 mg/dL Normal 0.2-1.3 [facility] Comment on above: Order Comment: Speci men Type: BLOOD SPECIMENOrdering Facility: [facility] Address: [address] [place] [address] Performed By: #### 2 4323-8 ####[facility] [id number] [place] [address] [place] Calcium [Mass/Vol] 8.6 mg/dL Normal 8.5-10.2 [facility] [facility] Comment on above: Order Comment: Speci men Type: BLOOD SPECIMENOrdering Facility: [facility] Address: [address] [place] [address] Performed By: #### 2 4323-8 ####[facility] [id number] [place] [address] [place] Chloride [Moles/Vol] 104 mmol/L Normal 97-105 [facility] Comment on above: Order Comment: Speci men Type: BLOOD SPECIMENOrdering Facility: [facility] Address: [address] [place], [place] [address] Performed By: #### 2 4323-8 ####[facility] [id number] [place] [address] [place] CO2 [Moles/Vol] 28 mmol/L Normal 22-30 [facility] Comment on above: Order Comment: Speci men Type: BLOOD SPECIMENOrdering Facility: [facility] Address: [address] Performed By: #### 2 4323-8 ####[facility] [id number] [place] [address] [place] Creatinine [Mass/Vol] 1.03 mg/dL Normal 0.73-1.22 [facility] Comment on above: Order Comment: Speci men Type: BLOOD SPECIMENOrdering Facility: [facility] Address: [address] [place], [place] [id number] Performed By: #### 2 4323-8 ####[facility] [id number] [address] ESTIMATED GLOMERULAR FILTRATION RATE 84 mL/min/1.73m??? Normal >=60 [facility] Comment on above: Order Comment: Abhishek flores Type: BLOOD SPECIMENOrdering Facility: [facility] Address: [address] [place] [address] Result Comment: Romi mated Glomerular Filtration Rate (eGFR) is calculated using the 2020 CKD-EPI creatinine equation. This equation utilizes serum creatinine, sex, and age as parameters. The creatinine assay has traceable calibration to isotope dilution-mass spectrometry. Refer to KDIGO guidelines for clinical interpretation. In patients with unstable renal function, e.g. those with acute kidney injury, the eGFR may not accurately reflect actual GFR. Performed By: #### 2 4323-8 ####[facility] [id number] [place] [address] [place] Glucose [Mass/Vol] 129 mg/dL High 74-99 [facility] Comment on above: Order Comment: Abhishek flores Type: BLOOD SPECIMENOrdering Facility: [facility] Address: [address] [place] [address] Result Comment: The [place] Diabetes [employer] (ADA) provides guidance for cutoff values for fasting glucose and random glucose. The ADA defines fasting as no caloric intake for at least 8 hours. Fasting plasma glucose results between 100 to 125 mg/dL indicate increased risk for diabetes (prediabetes).Fasting plasma glucose results greater than or equal to 126 mg/dL meet the criteria for diagnosis of diabetes. In the absence of unequivocal hyperglycemia, results should be confirmed by repeat testing. In a patient with classic symptoms of hyperglycemia or hyperglycemic crisis, random plasma glucose results greater than or equal to 200 mg/dL meet the criteria for diagnosis of diabetes.Reference: Standards of Medical Care in Diabetes 2016, [place] [employer]. Diabetes Care. 2016.39(Suppl 1). Performed By: #### 2 4323-8 ####[facility] [id number] [address] [place] Potassium [Moles/Vol] 4.0 mmol/L Normal 3.7-5.1 [facility] Comment on above: Order Comment: Speci men Type: BLOOD SPECIMENOrdering Facility: [facility] Address: [address] [place] [address] Performed By: #### 2 4323-8 ####[facility] [id number] [place] [address] [place] Protein [Mass/Vol] 6.8 g/dL Normal 6.3-8.0 [facility] Comment on above: Order Comment: Speci men Type: BLOOD SPECIMENOrdering Facility: [facility] Address: [address] [place] [address] Performed By: #### 2 4323-8 ####[facility] [id number] [place] [address] [place] Sodium [Moles/Vol] 140 mmol/L Normal 136-144 [facility] Comment on above: Order Comment: Speci men Type: BLOOD SPECIMENOrdering Facility: [facility] Address: [address] [place] [address] Performed By: #### 2 4323-8 ####[facility] [id number] [place] [address] [place] Urea nitrogen [Mass/Vol] 20 mg/dL Normal 9-24 [facility] Comment on above: Order Comment: Speci men Type: BLOOD SPECIMENOrdering Facility: [facility] Address: [address] [place] [address] Performed By: #### 2 4323-8 ####[facility] [id number] [place] [address] [place] ABDOMEN WO IVCONon 2022 [facility] CBC AUTO DIFFon 09-11-2021 BASO # 0.2 103/ul Critically high 0.0-0.1 [facility] Comment on above: Performed By: #### C BC #### [facility] [address] [address] [address] Roxanne Paulino Basophils/100 WBC (Bld) 1.5 % Normal 0.2-2.0 [facility] Comment on above: Performed By: #### C BC #### [facility] [address] [address] [address] Roxanne Paulino EO # 0.4 103/ul Normal 0.0-0.7 [facility] Comment on above: Performed By: #### C BC #### [facility] [address] [place] [address] Dr. Roxanne Paulino Eosinophils/100 WBC (Bld) 3.5 % Normal 0.9-7.0 [facility] Comment on above: Performed By: #### C BC #### [facility] [address] [place] [address] Dr. Roxanne Paulino Erythrocyte distribution width (RBC) [Ratio] 20.7 % Critically high 11.0-15.0 [facility] Comment on above: Performed By: #### C BC #### [facility] [address] [place] [address] Dr. Roxanne Paulino Hematocrit (Bld) [Volume fraction] 43.4 % Normal 42.0-54.0 [facility] Comment on above: Performed By: #### C BC #### [facility] [address] [place] [address] Dr. Roxanne Paulino Hemoglobin (Bld) [Mass/Vol] 11.5 g/dL Critically low 14.0-18.0 [facility] Comment on above: Performed By: #### C BC #### [facility] [address] [place] [address] Dr. Roxanne Paulino IG # 0.12 10e3/ul Critically high 0.00-0.03 [facility] Comment on above: Performed By: #### C BC #### [facility] [address] [place] [address] Dr. Roxanne Paulino IG % 1.0 % Critically high 0.0-0.5 [facility] Comment on above: Performed By: #### C BC #### [facility] [address] [place] [address] Dr. Roxanne Paulino LYMPH # 1.1 103/ul Critically low 1.2-3.8 [facility] Comment on above: Performed By: #### C BC #### [facility] [address] [address] [address] Roxanne Paulino Lymphocytes/100 WBC (Bld) 9.4 % Critically low 20.5-60.0 [facility] Comment on above: Performed By: #### C BC #### [facility] [address] [place] [address] Dr. Roxanne Paulino MANUAL DIFF REQ NO Normal [facility] Comment on above: Performed By: #### C BC #### [facility] [address] [place] [address] Dr. Roxanne Paulino MCH (RBC) [Entitic mass] 19.5 pg Critically low 25.9-34.0 [facility] Comment on above: Performed By: #### C BC #### [facility] [address] [place] [address] Dr. Roxanne Paulino MCHC (RBC) [Mass/Vol] 26.5 g/dL Critically low 29.9-35.2 [facility] Comment on above: Performed By: #### C BC #### [facility] [address] [place] [address] Dr. Roxanne Paulino MCV (RBC) [Entitic vol] 73.6 fL Critically low 80.0-94.0 [facility] Comment on above: Performed By: #### C BC #### [facility] [address] [place] [address] Dr. Roxanne Paulino MONO # 0.6 103/ul Normal 0.3-0.8 [facility] Comment on above: Performed By: #### C BC #### [facility] [address] [place] [address] Dr. Roxanne Paulino Monocytes/100 WBC (Bld) 4.9 % Normal 1.7-12.0 [facility] Comment on above: Performed By: #### C BC #### [facility] [address] [address] [address] Roxanne Paulino NEUT # 9.6 103/ul Critically high 1.4-6.5 [facility] Comment on above: Performed By: #### C BC #### [facility] [address] [address] [address] Roxanne Paulino Neutrophils/100 WBC (Bld) 79.7 % Critically high 43.0-75.0 [facility] Comment on above: Performed By: #### C BC #### [facility] [address] [place] [address] Dr. Roxanne Paulino Platelet mean volume (Bld) [Entitic vol] 8.0 fL Critically low 9.5-13.5 [facility] Comment on above: Performed By: #### C BC #### [facility] [address] [place] [address] Dr. Roxanne Paulino PLT 827 103/ul Critically high 150-450 [facility] Comment on above: Performed By: #### C BC #### [facility] [address] [place] [address] Dr. Roxanne Paulino RBC 5.90 106/ul Normal 4.70-6.10 [facility] Comment on above: Result Comment: 1+ H YPOCHROMIA 1+ POIKILOCYTOSIS 1+ OVALOCYTE SLIGHT TEAR DROP Performed By: #### C BC #### [facility] [address] [place] [address] Dr. Roxanne Paulino WBC 12.1 103/ul Critically high 4.0-11.0 [facility] Comment on above: Performed By: #### C BC #### [facility] [address] [place] [address] Dr. Roxanne Paulino LIPID PROFILEon 09-11-2021 CHOL-HDL RATIO NORM SEE BELOW Normal [facility] Comment on above: Result Comment: 3.3 - 4.4 LOW RISK 4.4 - 7.1 AVERAGE RISK 7.1 - 11.0 MODERATE RISK >11.0 HIGH RISK Performed By: #### L IPID, CMP #### [facility] [address] [address] [address] Roxanne Paulino Cholesterol [Mass/Vol] 144 mg/dL Normal <=200 [facility] Comment on above: Performed By: #### L IPID, CMP #### [facility] [address] [address] [address] Roxanne Paulino Cholesterol in HDL [Mass/Vol] 51 mg/dL Normal 40-60 [facility] Comment on above: Performed By: #### L IPID, CMP #### [facility] [address] [address] [address] Roxanne Paulino Cholesterol in LDL [Mass/Vol] 83.0 mg/dL Normal [facility] Comment on above: Performed By: #### L IPID, CMP #### [facility] [address] [address] [address] Roxanne Paulino Cholesterol.total/ Cholesterol in HDL [Mass ratio] 2.8 {ratio} Normal [facility] Comment on above: Performed By: #### L IPID, CMP #### [facility] [address] [address] [address] Roxanne Paulino HDL NORMAL > or = 60 mg/dl - LO W CARDIOVASCULAR RISK <40 mg/dl - HIGH CARDIOVASCULAR RISK Normal [facility] Comment on above: Performed By: #### L IPID, CMP #### [facility] [address] [address] [address] Roxanne Paulino LDL CALC NORMAL SEE BELOW Normal [facility] Comment on above: Result Comment: <100 mg/dl OPTIMAL 100 - 129 mg/dl NEAR OR ABOVE OPTIMAL 130 - 159 mg/dl BORDERLINE HIGH 160 - 189 mg/dl HIGH >190 mg/dl VERY HIGH Performed By: #### L IPID, CMP #### [facility] [address] [address] [address] Roxanne Paulino Triglyceride [Mass/Vol] 50 mg/dL Normal <=150 [facility] Comment on above: Performed By: #### L IPID, CMP #### [facility] [address] [address] [address] Roxanne Paulino VLDL CALC 10.0 mg/dL Normal [facility] Comment on above: Performed By: #### L IPID, CMP #### [facility] [address] [place] [address] Dr. Roxanne Paulino PROF 14(COMP METB)on 022 Albumin [Mass/Vol] 4.1 g/dL Normal 3.4-5.0 [facility] Comment on above: Performed By: #### L IPID, CMP #### [facility] [address] [place] [address] Dr. Roxanne Paulino Albumin/Globulin [Mass ratio] 1.4 {ratio} Normal [facility] Comment on above: Performed By: #### L IPID, CMP #### [facility] [address] [place] [address] Dr. Roxanne Paulino ALP [Catalytic activity/Vol] 55 U/L Normal 46-116 [facility] Comment on above: Performed By: #### L IPID, CMP #### [facility] [address] [place] [address] Dr. Roxanne Paulino ALT [Catalytic activity/Vol] 12 U/L Critically low 16-63 [facility] Comment on above: Performed By: #### L IPID, CMP #### [facility] [address] [place] [address] Dr. Roxanne Paulino Anion gap [Moles/Vol] 8.2 mmol/L Normal [facility] Comment on above: Performed By: #### L IPID, CMP #### [facility] [address] [place] [address] Dr. Roxanne Paulino AST [Catalytic activity/Vol] 14 U/L Critically low 15-37 [facility] Comment on above: Performed By: #### L IPID, CMP #### [facility] [address] [place] [address] Dr. Roxanne Paulino Bilirubin [Mass/Vol] 0.5 mg/dL Normal 0.2-1.0 [facility] Comment on above: Performed By: #### L IPID, CMP #### [facility] [address] [address] [address] Roxanne Paulino Calcium [Mass/Vol] 8.9 mg/dL Normal 8.5-10.1 [facility] Comment on above: Performed By: #### L IPID, CMP #### [facility] [address] [place] [address] Dr. Roxanne Paulino Chloride [Moles/Vol] 106 mmol/L Normal 98-107 [facility] Comment on above: Performed By: #### L IPID, CMP #### [facility] [address] [place] [address] Dr. Roxanne Paulino CO2 [Moles/Vol] 31.5 mmol/L Normal 21.0-32.0 [facility] Comment on above: Performed By: #### L IPID, CMP #### [facility] [address] [place] [address] Dr. Roxanne Paulino Creatinine [Mass/Vol] 1.06 mg/dL Normal 0.70-1.30 [facility] Comment on above: Performed By: #### L IPID, CMP #### [facility] [address] [place] [address] Dr. Roxanne Paulino EGFR-AF EMIRATI >60 Normal >=60 [facility] Comment on above: Performed By: #### L IPID, CMP #### [facility] [address] [place] [address] Dr. Roxanne Paulino EGFR-NON AF EMIRATI >60 Normal >=60 [facility] Comment on above: Performed By: #### L IPID, CMP #### [facility] [address] [place] [address] Dr. Roxanne Paulino Globulin (S) [Mass/Vol] 3.0 g/dL Normal [facility] Comment on above: Performed By: #### L IPID, CMP #### [facility] [address] [place] [address] Dr. Roxanne Paulino Glucose [Mass/Vol] 80 mg/dL Normal 74-106 [facility] Comment on above: Performed By: #### L IPID, CMP #### [facility] [address] [place] [address] Dr. Roxanne Paulino Potassium [Moles/Vol] 4.7 mmol/L Normal 3.5-5.1 [facility] Comment on above: Performed By: #### L IPID, CMP #### [facility] [address] [address] [address] Roxanne Paulino Protein [Mass/Vol] 7.1 g/dL Normal 6.4-8.2 [facility] Comment on above: Performed By: #### L IPID, CMP #### [facility] [address] [address] [address] Roxanne Paulino Sodium [Moles/Vol] 141 mmol/L Normal 136-145 [facility] Comment on above: Performed By: #### L IPID, CMP #### [facility] [address] [address] [address] Roxanne Paulino Urea nitrogen [Mass/Vol] 17.0 mg/dL Normal 7.0-18.0 [facility] Comment on above: Performed By: #### L IPID, CMP #### [facility] [address] [address] [address] Roxanne Paulino Urea nitrogen/Creatinin e [Mass ratio] 16.0 mg/mg Normal [facility] Comment on above: Performed By: #### L IPID, CMP #### [facility] [address] [address] ABDOMEN WO IVCONon 2021 [facility] Coding Summary.on 03-09-2021 Coding Summary. CD:[id number] Gh0bWw+ PGhlYWQ+OV7RUGJfU67fhRVwbK7 WD3wATM6NMXYURNDVOF8HQR1zzL E2AZgbJ1OuzfRf UnvbaYTlRJ58UYm9BON9oHkgMPn srG3plVMuJ2m4LaHcNW90oB50QI ktIVSyIeD3VdEmozcrrHKy L0dnSnXaoUNvUcl+PHRhYmxlIHd eFXAyFGmjULDuWmYewFumPD2kHr 9yZGVyLWNvbGxhcHNlOiBj f6jyTFZcXUkzUS7xhBvuN0VlkGV 3ATPqt4r5Vx02oYT+TQEuVRH6sA kbIXuri112ZiWfh4poSHM4 yKXjUYxsWIJ7W79ls9L4PZKbGNK qUIC9jVN9vB9dlErbvhrsO4GfgJ WvTuS2ZHS5yHDpwM2yyGqm xfsixW7lUpk+R97AYZ9DUKTXYQ9 YQgc2N3WtHefbfEA+KI15DTEvYA 21qNVtvCYic1wzjAm2MjUt DYZsCNU7mZqrJGtky5EuJFQeL39 xmLCpo9I5BXFdoHtcwCCtQnAeeK J5sI5lDYriuqvxa9wpcyut Lktuz5jheb03qG43K89uSXfqMRK zRCA6RZGkLXEkhEnrvk8rcF4rUd 8+TIqis9kkl0lpaQo2BcTl VHJjgiOfuAieDHW5w5TlDc42J9Y jdWfyq1PiMrn5zb79fNQex5V7kC T9ZZkbTIHosX4vNPifAxV4 COXxJkFufV77tLWbOCbzXw9nqSt inObfQH3jRABgtjllNYIrdT1uWV ThgMLavPbuUG1vVDTalsgm r901NhRyXVU2PRFbgTFzF2CejR6 xVgTaSCQeGPCgC9DxsZTtPUeaU9 87GLxtPuR4EJUepgEkQ0Kz SWVkyFdcEzC1j9U1Yn3Xv6Glgfd rZUV2PSjbWOVsFcN3CiZkEuP3Z6 FhItj9TROhsLawLS0sC0Pb MBDkvjujnbqhiQF4QTDzLANbkJ5 9vREoFDgcFy3as5V2w710ZGIgGO LtcF81Ck8zsAggVUXiuFNV tW6cnbntd2xaxpbqWkAhMTTdAIf 4BJg8RAHhpQrkYjZwFXW9MwI7TI J0jFSqjW4wnQxmfoamqF9c Oyc+H45esL7hVST8NJP5wwveMEZ cprQpFQ99CQ11W3BvUxbesLNnlA U+HYFsldJngCflLL2sCwBw y0qdu8CyHGyeL7GiYXBpAZviMvg 9ODJpTWC0fLZ5yK1kKWAgQLfxb9 E8aLO0Z0UrbeBmuo9wc1wo FLHnWPdgT72rcUIzy4F5VPEilBS 6MDXwqIzhWoGorC65Zzv+PGNvbG etb5LpJjtmp7gds7dhsPg9 MzJbGGSbilMzrEbhNDC2o8FbOo6 2I75sOFoyIBUfKNRsFFPdKJTwsM xaml0duK0cRi0+PGNvbCB3 sNM7aF9wVURxViK3OUltF157PxI daYBjQiodq0poe0jzfKf8RcFdRB OeptTspPncYUK3i8YtFl97 P21fJJcmUYDaYNFeXRYeGIYuhGg vxq4omJ0xTh9+DW1cs5mndo08jT 48dHI+QIIpLNV8xZvaRUhl QXUfpL1sJDcbEvU5ISBgHeQxsW1 3rFHsNYumTk1jnAthjLqwHT6wXO Rkvrhpi027CbGtx8ncBZKo yLWdAKhfVXF2Y57od6W0GLSxVAQ qBDB5tCK2bM4jjOpvzrvveQQlpZ uhcbDrqEilICdzFIwyG597 IHRvcDsnPlBhdGllbnQgTmFtZTo 2R6ClWmx5MDSqjYkfPY8jyCThRC baVf1gpLwjzNybMA3uIZHl hkhcc797QrMph6gzMYHrbEKeHGl qEGW0V72tj7E7LJMwMRAiHIF4yW Y1uP1gbOflfwwmmOLqcMcc ieWhoQymCYvjFXodP866MWWdgGu aTyCktyEjNYUjrXO1YH71OG90tP Vct1Y6oWV5S0TsFMNfvojq gxmhhWK5DYGkMBOgzH75Gw7ipJw fWb0gCQLnAUP7MVHrkKUtG2EwfP 1hJaRbMYKvHLQzF3SqsYXn JAryU101SPgcGjJ5PDRwcnPnD4Q bLWKikZvmCqP0x9I0Iz7PH1L0OQ 06DY16eZTru1J4fIZ3N9Vk MFExcqkimmexzDH9FZSzWJRzsA1 4Xk8pjExxOo1zUFOwXAX8HSGqnP IfC4KbfW0wTiTcGKFiDMGf J6JelUWbRPsfQ055DRkiOzN9EOJ rnwKuL3KzIDFdwPptTfZ8e1Q8Wm 9PTYz0QA60AT32xFIol9I7 jEO0B9VqDDKuopskrmfurKQ7WYV qMRXecE51Yw6zqSqbFj1dWCGwFE U3EAHrrDXyX8OpzQ0uMqCj PTDkNDXdA2CowVSaVIasH166QPi aErG7UMPwcsTkU3JkHKYjcYpuMr Y0q6G7Lt9LWSOxPM73RVL4 vBA4RO73FZ47Z9BxNomgiNCkaNW +PHRhYmxlIHdpZHRoPScxMDAlJy XkaYdsSY5tVd1cSMGjMFWc cKqsqLAtOyWmc3rvZLOvCVlvFT7 zhKjnF1TtyKO2ITPot2p9Ze42N5 4mB5NjlNZ+ATJltNC4eYN2 aC4aVzHoWwE6JExjA744TaSuyMG qLtyxi8ari0kciMt8ZsC8YTDaec IbkAtfLDD2p6NjKn47C71b IHdpZHRoPSIxNSUiIHZhbGlnbj0 lxF9uQs7+VHXdfNF8tOL7wJ2mTr WlWsU4UDzlN468YdCbpEXr Urklh6wjo7vxgOm9BfBlUWOekgR leXjlZKG8p2AsBv79X5QppOfdw8 TiJaj9tj66dIVvh3O6xNR0 K7KlANPrnhmjnZTvjMreBL9xTEP bzghcEPUwxL6cNARpY9i7JxGiDt C5JRxjF9VtlvB5GWQqvALk VVxfMCH9N35xv2P1QIBuUNYtSRO 7kUB2uV8ycRpmvyabfLLcpCcoaf FpuYlvCFxxZEjxM709TWGk mHyxTGNldZ0tAUXqiJHqdOivIV4 wNTBpbjsnPkhBUlRMRVksIEpFRk ZSRVkgSjwvdGQ+PHRkIHN0 lVclQYisQPSpvN8wKENxD4b9ThV wJbE9DLqwB1ZpAGLtodahXp66aG 4mSdVxZxM4AVjtU2RnchP7 VJZjySHuOAjqHZZ6Y52ar2O8UUD gRVAuYQK7tKY5uC9lvSxrridnyI VmdDsgdmVydGljYWwtYWxp T133CRHlhDkgIgUgUuLiKqB2VcN 4U5NbRbf8CYUgtWtoVR1yuOAtFE maCm8lcJyjuJvfAE5vIUDs uzrzMKMtiJ3iAUSzvTYotAudCN5 wXXSpfaaxl688IiJkAOQ3DPNvwE QrQ7UvuL6kJrXtBTNzKUWg T5OjvCHxWKxdA645OBdtAyC7GDY rmbKeO5HePVXnbLmuYwB4f0L2Lu 41NyBZZWFyczwvdGQ+PHRk XQP9cTxbWNmgCNYbmS5mQEKkD5b 7QxPmTmU9JSpgA3LjRICrwapoPa 98yE2xNyCvJzA8XZaoT5Qb hpN4IZZzrGGeYXlsAMI9K57xk1P 3BICpPHIjTXC0hWJ2qW5ttVtwtj ogbGVmdDsgdmVydGljYWwt MPdtJ149GOLnbZsdDz8emLE8L8K sSyx1BJTxwFkfZP6nfXJxXIuaSf 2snHatpEetZC2uQVOtgtqv SBWjxQ2zAZBrxBLzfVcdTW2gXOZ vvmbvb270EwVuGUU3LDZdsJBuV0 WxhP7gMiVyAPUmHYBmG5Vn hYCyHVewW188TWxoQnZ3EVOznnP wV7ZmOMWpgSauDzI5s6M3Zp4CGF B0dvZbmtf5C5ChArjeyXU+ HC83MQPlHD44wGGtrZPwn9ufaHc 2MzMaWYPcGHK0vVaoLSebe5SqPH GqT19rpEKls5M0VAXimEta kATwGdTlpZW5xD9iKGdhzuczf9x qmddtIrgbq7kidv10yX16I30sYF dpZHRoPSIzMCUiIHZhbGln cx3ycX3fLa6+NURmtHD5tZM1uQ4 sDfVsUrR8MWyuM151KtWuqIXeMr tfv0lqk8cjmOt1DgCkUAPd luXbgUusWMI7k2TdGh42F62rRDt aFJFmCAWnZSFhXVOfzOretm5suK 9wIi8+AK2uk5opov42qI90 dHI+HBExTJP7gWalNLpeAUNouS4 bPQjzVnY4SSCmZpAezG94wCEvHU eeIj3itQrelMcpGY4cYWKi brhdl199JvFfx6ouJSHgrCEtFJo jKMG4D13xs4I6PILfMCIwCYA5tO A9nG8rsGhdcmrzaQPnkLfp ltCwqPshMHlePHjnE575ITBjyHm yEyWpwTJyU5ikowKETT3rHsdidI Q+HMEeOLC7cYvjITsnPXDa cP7gSYYfY7w5BpQcHbS7TLwgN5L kgoD4NBYzuMYaIZFhmENRwX7vcq yhq8ugflgqNfUhOPGxLZq5 XDp5RVOmbLzsCvPwZMD0SiP0ELB 1xUAkmW1bwUnnovvafW8aRjl+Rk lOOjwvdGQ+CBXjTIV9xQly QJizCZWbmW1xMSLuO6v8FxVlHnL 7XZocX1NkzgT3BPBcgYCaAQPiyQ GKaA4oxtwsk3feriurVbXx TARhGRa2ILp0SCOweXpnHsWvMUO 6GcH9GMH2lAEvyY0qcHhugewseR 9wOyc+TVJOOjwvdGQ+PHRk CQL5kCfoLHczHCXsqD2uBGDeV3u 7PwQpWpY2UIyfL3GzerZ9ZBZooS SgUTSosGCFlQ2nwtmmx1nb csjdSfZuQXMbWAm0ZEe9WTNdcEq iJhTrNSD7AbV0MZU3qRPcxN8jcQ pifiltxY5vIow+WEI4LWM2 JU72FV69J5HlDyorhWUfmNP+PHR hYmxlIHdpZHRoPScxMDAlJyBzdH gyYV6dPx8cPVQyKHAifYeo cHNl (more content not included)... Normal [facility] Priority Order-Svetlana 2021 Priority Order-STAT Comment Invalid Interpretation Code [facility] Comment on above: Result Comment: Rece ived Performed at: [address] [phone] [id number] PhD Jennie Yoo Performed By: #### S ARS-CoV-2, IAN, [id number] #### [facility] [address] [place] [address] SARS-CoV-2, NAAon 03-08-2021 SARS-CoV-2 (COVID-19) RNA IAN+probe Ql (Resp) Not detected Invalid Interpretation Code Not Detected [facility] Comment on above: Result Comment: This nucleic acid amplification test was developed and its performance characteristics determined by [employer]. Nucleic acid amplification tests include RT-PCR and TMA. This test has not been FDA cleared or approved. This test has been authorized by FDA under an Emergency Use Authorization (EUA). This test is only authorized for the duration of time the declaration that circumstances exist justifying the authorization of the emergency use of in vitro diagnostic tests for detection of SARS-CoV-2 virus and/or diagnosis of COVID-19 infection under section 564(b)(1) of the Act, 21 U.S.C. 360bbb-3(b) (1), unless the authorization is terminated or revoked sooner. When diagnostic testing is negative, the possibility of a false negative result should be considered in the context of a patient's recent exposures and the presence of clinical signs and symptoms consistent with COVID-19. An individual without symptoms of COVID-19 and who is not shedding SARS-CoV-2 virus would expect to have a negative (not detected) result in this assay. Performed at: [facility] [address], [place] [id number] PhD Jennie Yoo Performed By: #### S ARS-CoV-2, IAN, [id number] #### [facility] [address] [place] [address] Consent for Treatmenton 02-15 Consent for Treatment [id number] Normal [facility] Testing Ordered By: [facility] [employer] on 2021 SARS-CoV-2 (COVID-19) RNA IAN+probe Ql (Resp) Not detected Invalid Interpretation Code Not Detected [facility] [employer] Comment on above: Result Comment: This nucleic acid amplification test was developed and its performance characteristics determined by [employer]. Nucleic acid amplification tests include RT-PCR and TMA. This test has not been FDA cleared or approved. This test has been authorized by FDA under an Emergency Use Authorization (EUA). This test is only authorized for the duration of time the declaration that circumstances exist justifying the authorization of the emergency use of in vitro diagnostic tests for detection of SARS-CoV-2 virus and/or diagnosis of COVID-19 infection under section 564(b)(1) of the Act, 21 U.S.C. 360bbb-3(b) (1), unless the authorization is terminated or revoked sooner. When diagnostic testing is negative, the possibility of a false negative result should be considered in the context of a patient's recent exposures and the presence of clinical signs and symptoms consistent with COVID-19. An individual without symptoms of COVID-19 and who is not shedding SARS-CoV-2 virus would expect to have a negative (not detected) result in this assay. Performed at: [address] [id number] PhD Jennie Yoo ERYTHROPOIETIN (EPO)on 10-02 Erythropoietin 2.2 mIU/mL Critically low 2.6-18.5 [facility] Comment on above: Result Comment: [employer] DxI 800 Immunoassay System . Values obtained with different assay methods or kits cannot be used interchangeably. Results cannot be interpreted as absolute evidence of the presence or absence of malignant disease. Performed By: #### E POLC #### [facility] [address] [place], [place] [phone] Lou Caitlyn UA RANDOM W/MICROSCOPICon BACTERIA NONE SEEN Normal NONE SEEN [facility] Comment on above: Performed By: #### U AMIC #### [facility] [address] [place], [place] [address] Lou Caitlyn Bilirubin Ql (U) Negative Normal NEGATIVE [facility] Comment on above: Performed By: #### U AMIC #### [facility] [address] [place], [place] [address] Lou Caitlyn CAST NONE SEEN Normal NONE SEEN [facility] Comment on above: Performed By: #### U AMIC #### [facility] [address] [place] [address] Lou Caitlyn Clarity (U) CLEAR Normal CLEAR [facility] Comment on above: Performed By: #### U AMIC #### [facility] [address] [id number] Lou Caitlyn Color (U) LT. YELLOW Normal YELLOW [facility] Comment on above: Performed By: #### U AMIC #### [facility] [address] [place] [address] Lou Caitlyn Crystals LM Nom (Urine sed) NONE SEEN Normal NONE SEEN [facility] Comment on above: Performed By: #### U AMIC #### [facility] [address] [place] [address] Lou Caitlyn Epithelial cells LM Ql (Urine sed) RARE Normal NONE SEEN /RARE [facility] Comment on above: Performed By: #### U AMIC #### [facility] [address] [place] [address] Lou Caitlyn Glucose Ql (U) Negative Normal NEGATIVE [facility] Comment on above: Performed By: #### U AMIC #### [facility] [address] [place] [address] Lou Caitlyn Hemoglobin Ql (U) Negative Normal NEGATIVE [facility] Comment on above: Performed By: #### U AMIC #### [facility] [address] [place] [address] Lou Caitlyn Ketones Ql (U) Negative Normal NEGATIVE [facility] Comment on above: Performed By: #### U AMIC #### [facility] [address] [place] [address] Lou Caitlyn LEUKOCYTES Negative Normal NEGATIVE [facility] Comment on above: Performed By: #### U AMIC #### [facility] [address] [place] [address] Lou Caitlyn MUCOUS NONE SEEN Normal NONE SEEN [facility] Comment on above: Performed By: #### U AMIC #### [facility] [address] [place], [place] [address] Lou Caitlyn Nitrite Ql (U) Negative Normal NEGATIVE [facility] Comment on above: Performed By: #### U AMIC #### [facility] [address] [place], [place] [address] Lou Caitlyn pH (U) 6.5 [pH] Normal 5-9 [facility] Comment on above: Performed By: #### U AMIC #### [facility] [address] [place] [address] Lou Caitlyn RBC NONE SEEN Abnormal 0-2 [facility] Comment on above: Performed By: #### U AMIC #### [facility] [address] [place] [address] Lou Caitlyn SPEC GRAVITY 1.010 Normal 1.005-<=1.0 25 [facility] Comment on above: Performed By: #### U AMIC #### [facility] [address] [place] [address] Lou Caitlyn UA PROTEIN Negative Normal NEGATIVE/ TRACE [facility] Comment on above: Performed By: #### U AMIC #### [facility] [address] [place], [place] [address] Lou Caitlyn Urobilinogen Qn (U) 0.2 {Ching'U}/dL Normal 0.2 - 1.0 [facility] Comment on above: Performed By: #### U AMIC #### [facility] [address] [place] [address] Lou Caitlyn WBC NONE SEEN Normal NONE SEEN [facility] Comment on above: Performed By: #### U AMIC #### [facility] [address] [place], [place] [address] Lou Caitlyn CBC AUTO DIFFon 09-29-2020 BASO # 0.2 103/ul Critically high 0.0-0.1 [facility] Comment on above: Performed By: #### C BC #### [facility] [address] [place] [address] Lou Caitlyn Basophils/100 WBC (Bld) 1.8 % Normal 0.2-2.0 [facility] Comment on above: Performed By: #### C BC #### [facility] [address] [place], [place] [address] Lou Caitlyn EO # 0.3 103/ul Normal 0.0-0.7 [facility] Comment on above: Performed By: #### C BC #### [facility] [address] [id number] Lou Caitlyn Eosinophils/100 WBC (Bld) 2.9 % Normal 0.9-7.0 [facility] Comment on above: Performed By: #### C BC #### [facility] [address] [id number] Lou Caitlyn Erythrocyte distribution width (RBC) [Ratio] 15.5 % Critically high 11.0-15.0 [facility] Comment on above: Performed By: #### C BC #### [facility] [address] [place], [place] [address] Lou Caitlyn Hematocrit (Bld) [Volume fraction] 57.3 % Critically high 42.0-54.0 [facility] Comment on above: Performed By: #### C BC #### [facility] [address] [place], [place] [address] Lou Caitlyn Hemoglobin (Bld) [Mass/Vol] 18.8 g/dL Critically high 14.0-18.0 [facility] Comment on above: Performed By: #### C BC #### [facility] [address] [place], [place] [address] Lou Caitlyn IG # 0.15 10e3/ul Critically high 0.00-0.03 [facility] Comment on above: Performed By: #### C BC #### [facility] [address] [id number] Lou Caitlyn IG % 1.4 % Critically high 0.0-0.5 [facility] Comment on above: Performed By: #### C BC #### [facility] [address] [place], [place] [address] Lou Caitlyn LYMPH # 1.0 103/ul Critically low 1.2-3.8 [facility] Comment on above: Performed By: #### C BC #### [facility] [address] [place] [address] Lou Caitlyn Lymphocytes/100 WBC (Bld) 9.2 % Critically low 20.5-60.0 [facility] Comment on above: Performed By: #### C BC #### [facility] [address] [place] [address] Lou Caitlyn MANUAL DIFF REQ NO Normal [facility] Comment on above: Performed By: #### C BC #### [facility] [address] [place], [place] [address] Lou Caitlyn MCH (RBC) [Entitic mass] 29.5 pg Normal 25.9-34.0 [facility] Comment on above: Performed By: #### C BC #### [facility] [address] [place], [place] [address] Lourahul Coxen MCHC (RBC) [Mass/Vol] 32.8 g/dL Normal 29.9-35.2 [facility] Comment on above: Performed By: #### C BC #### [facility] [address] [place], [place] [address] Lou Caitlyn MCV (RBC) [Entitic vol] 90.0 fL Normal 80.0-94.0 [facility] Comment on above: Performed By: #### C BC #### [facility] [address] [place], [place] [address] Lou Caitlyn MONO # 0.6 103/ul Normal 0.3-0.8 [facility] Comment on above: Performed By: #### C BC #### [facility] [address] [place], [place] [address] Lou Caitlyn Monocytes/100 WBC (Bld) 5.2 % Normal 1.7-12.0 [facility] Comment on above: Performed By: #### C BC #### [facility] [address] [place], [place] [address] Lou Caitlyn NEUT # 8.4 103/ul Critically high 1.4-6.5 [facility] Comment on above: Performed By: #### C BC #### [facility] [address] [place], [place] [address] Lourahul Brady Neutrophils/100 WBC (Bld) 79.5 % Critically high 43.0-75.0 [facility] Comment on above: Performed By: #### C BC #### [facility] [address] [place], [place] [address] Lourahul Brady Platelet mean volume (Bld) [Entitic vol] 8.4 fL Critically low 9.5-13.5 [facility] Comment on above: Performed By: #### C BC #### [facility] [address] [place], [place] [address] Lou Caitlyn PLT 455 103/ul Critically high 150-450 [facility] Comment on above: Performed By: #### C BC #### [facility] [address] [place], [place] [address] Lou Caitlyn RBC 6.37 106/ul Critically high 4.70-6.10 [facility] Comment on above: Performed By: #### C BC #### [facility] [address] [id number] Lou Caitlyn WBC 10.6 103/ul Normal 4.0-11.0 [facility] Comment on above: Performed By: #### C BC #### [facility] [address] [place], [place] [address] Lou Brady LIPID PROFILEon 09-29-2020 CHOL-HDL RATIO NORM SEE BELOW Normal [facility] Comment on above: Result Comment: 3.3 - 4.4 LOW RISK 4.4 - 7.1 AVERAGE RISK 7.1 - 11.0 MODERATE RISK >11.0 HIGH RISK Performed By: #### L IPID, CMP #### [facility] [address] [id number] Lou Caitlyn Cholesterol [Mass/Vol] 177 mg/dL Normal <=200 [facility] Comment on above: Performed By: #### L IPID, CMP #### [facility] [address] [id number] Lou Caitlyn Cholesterol in HDL [Mass/Vol] 60 mg/dL Normal [facility] Comment on above: Performed By: #### L IPID, CMP #### [facility] [address] [address] Lou Caitlyn Cholesterol in LDL [Mass/Vol] 93.2 mg/dL Normal [facility] Comment on above: Performed By: #### L IPID, CMP #### [facility] [address] [address] Lou Caitlyn Cholesterol.total/ Cholesterol in HDL [Mass ratio] 3.0 {ratio} Normal [facility] Comment on above: Performed By: #### L IPID, CMP #### [facility] [address] [place] [address] Lou Caitlyn HDL NORMAL > or = 60 mg/dl - LO W CARDIOVASCULAR RISK <40 mg/dl - HIGH CARDIOVASCULAR RISK Normal [facility] Comment on above: Performed By: #### L IPID, CMP #### [facility] [address] [place] [address] Lou Caitlyn LDL CALC NORMAL SEE BELOW Normal [facility] Comment on above: Result Comment: <100 mg/dl OPTIMAL 100 - 129 mg/dl NEAR OR ABOVE OPTIMAL 130 - 159 mg/dl BORDERLINE HIGH 160 - 189 mg/dl HIGH >190 mg/dl VERY HIGH Performed By: #### L IPID, CMP #### [facility] [address] [place] [address] Lou Caitlyn Triglyceride [Mass/Vol] 119 mg/dL Normal <=150 [facility] Comment on above: Performed By: #### L IPID, CMP #### [facility] [address] [address] Lou Caitlyn VLDL CALC 23.8 mg/dL Normal [facility] Comment on above: Performed By: #### L IPID, CMP #### [facility] [address] [place], [place] [address] Lou Caitlyn PROF 14(COMP METB)on 021 Albumin [Mass/Vol] 4.0 g/dL Normal 3.5-5.0 [facility] Comment on above: Performed By: #### L IPID, CMP #### [facility] [address] [place], [place] [address] Lou Caitlyn Albumin/Globulin [Mass ratio] 1.3 {ratio} Normal [facility] Comment on above: Performed By: #### L IPID, CMP #### [facility] [address] [address] Lou Caitlyn ALP [Catalytic activity/Vol] 63 U/L Normal 38-126 [facility] Comment on above: Performed By: #### L IPID, CMP #### [facility] [address] [address] Lou Caitlyn ALT [Catalytic activity/Vol] 36 U/L Normal 21-72 [facility] Comment on above: Performed By: #### L IPID, CMP #### [facility] [address] [address] Lou Caitlyn Anion gap [Moles/Vol] 8.7 mmol/L Normal [facility] Comment on above: Performed By: #### L IPID, CMP #### [facility] [address] [address] Lou Caitlyn AST [Catalytic activity/Vol] 25 U/L Normal 17-59 [facility] Comment on above: Performed By: #### L IPID, CMP #### [facility] [address] [place] [address] Lou Caitlyn Bilirubin [Mass/Vol] 0.8 mg/dL Normal 0.2-1.3 [facility] Comment on above: Performed By: #### L IPID, CMP #### [facility] [address] [address] Lou Caitlyn Calcium [Mass/Vol] 8.7 mg/dL Normal 8.4-10.2 [facility] Comment on above: Performed By: #### L IPID, CMP #### [facility] [address] [address] Lou Caitlyn Chloride [Moles/Vol] 102 mmol/L Normal 98-107 [facility] Comment on above: Performed By: #### L IPID, CMP #### [facility] [address] [id number] Lou Caitlyn CO2 [Moles/Vol] 34.6 mmol/L Critically high 22.0-30.0 [facility] Comment on above: Performed By: #### L IPID, CMP #### [facility] [address] [place] [address] Lou Caitlyn Creatinine [Mass/Vol] 1.06 mg/dL Normal 0.66-1.25 [facility] Comment on above: Performed By: #### L IPID, CMP #### [facility] [address] [place] [address] Lou Caitlyn EGFR-AF EMIRATI >60 Normal >=60 [facility] Comment on above: Performed By: #### L IPID, CMP #### [facility] [address] [place] [address] Lou Caitlyn EGFR-NON AF EMIRATI >60 Normal >=60 [facility] Comment on above: Performed By: #### L IPID, CMP #### [facility] [address] [place] [address] Lou Caitlyn Globulin (S) [Mass/Vol] 3.1 g/dL Normal [facility] Comment on above: Performed By: #### L IPID, CMP #### [facility] [address] [place] [address] Lou Caitlyn Glucose [Mass/Vol] 96 mg/dL Normal 74-106 [facility] Comment on above: Performed By: #### L IPID, CMP #### [facility] [address] [place] [address] Lou Caitlyn Potassium [Moles/Vol] 4.3 mmol/L Normal 3.4-5.0 [facility] Comment on above: Performed By: #### L IPID, CMP #### [facility] [address] [place] [address] Lou Caitlyn Protein [Mass/Vol] 7.1 g/dL Normal 6.1-8.2 [facility] Comment on above: Performed By: #### L IPID, CMP #### [facility] [address] [place] [address] Lou Caitlyn Sodium [Moles/Vol] 141 mmol/L Normal 137-145 [facility] Comment on above: Performed By: #### L IPID, CMP #### [facility] [address] [place], [place] [address] Lou Brady Urea nitrogen [Mass/Vol] 17.0 mg/dL Normal 9.0-20.0 [facility] Comment on above: Performed By: #### L IPID, CMP #### [facility] [address] [place], [place] [address] Lou Brady Urea nitrogen/Creatinin e [Mass ratio] 16.0 mg/mg Normal [facility] Comment on above: Performed By: #### L IPID, CMP #### [facility] [address] [place], [place] [address] Lou Brady Social History Date Type Detail Facility Start: 11-05-2021 End: 06-17-2022 Sex Assigned At Male [facility] [place] Start: 11-05-2021 End: 06-17-2022 History of Social function [facility] Start: 05-11-2021 End: 12-31-2021 Exposure to SARS-CoV-2 (event) Not sure [facility] Start: 04-16-2021 End: 08-11-2023 Alcohol intake Current drinker of alcohol (finding) [facility] Start: 10-16-2020 Tobacco smoking stat us [facility] Never smoked tobacco [facility] Start: 10-16-2020 Tobacco use and exposure Smokeless tobacco non-user [facility] Start: 10-15-2020 End: 07-19-2023 Tobacco smoking status NHIS Unknown if ever smoked [facility] Start: 1965 Sex Assigned At Not on file [facility] Start: 1965 Sex Assigned At Male F [facility] National Score (1-100), lower number is lower risk 73 [facility] Vital Signs Date Time Vital Sign Value Performing Clinician Facility 07-19-2023 10:40-0400 Body height 177.8 cm [facility] 07-19-2023 10:40-0400 Body mass index (BMI) [Ratio] 26.2 kg/m2 [facility] 07-19-2023 10:40-0400 Body weight 83 kg [facility] 07-19-2023 10:40-0400 Diastolic blood pressure 68 mm[Hg] [facility] 07-19-2023 10:40-0400 Heart rate 86 /min [facility] 07-19-2023 10:40-0400 SaO2% (BldA) [Mass fraction] 97 % [facility] 07-19-2023 10:40-0400 Systolic blood pressure 122 mm[Hg] [facility] 07-14-2023 09:33-0400 Body mass index (BMI) [Ratio] 27.58 kg/m2 Kun Mattson APRN.CHAMFERING MACHINE OPERATOR Work Phone: [facility] 07-14-2023 09:33-0400 Body temperature 98.29 [degF] Kun Mattson APRN.CHAMFERING MACHINE OPERATOR Work Phone: [facility] 07-14-2023 09:33-0400 Body weight 83.5 kg Kun Mattson APRN.CHAMFERING MACHINE OPERATOR Work Phone: [facility] Comment on above: shoes on 07-14-2023 09:33-0400 Diastolic blood pressure 67 mm[Hg] Kun Mattson APRN.CHAMFERING MACHINE OPERATOR Work Phone: [facility] 07-14-2023 09:33-0400 Heart rate 79 /min Kun Mattson APRN.CHAMFERING MACHINE OPERATOR Work Phone: [facility] 07-14-2023 09:33-0400 Respiratory rate 18 /min Kun Mattson APRN.CHAMFERING MACHINE OPERATOR Work Phone: [facility] 07-14-2023 09:33-0400 SaO2% (BldA) [Mass fraction] 100 % Kun Mattson APRN.CHAMFERING MACHINE OPERATOR Work Phone: [facility] 07-14-2023 09:33-0400 Systolic blood pressure 135 mm[Hg] Kun Mattson APRN.CHAMFERING MACHINE OPERATOR Work Phone: [facility] 06-16-2023 08:53-0400 Body mass index (BMI) [Ratio] 27.59 kg/m2 Annie Abreu APRN.CHAMFERING MACHINE OPERATOR Work Phone: [facility] 06-16-2023 08:53-0400 Body temperature 97.2 [degF] Annie Abreu APRN.CHAMFERING MACHINE OPERATOR Work Phone: [facility] 06-16-2023 08:53-0400 Body weight 83.52 kg Annie Abreu APRN.CHAMFERING MACHINE OPERATOR Work Phone: [facility] Comment on above: shoes on 06-16-2023 08:53-0400 Diastolic blood pressure 70 mm[Hg] Annie Abreu APRN.CHAMFERING MACHINE OPERATOR Work Phone: [facility] 06-16-2023 08:53-0400 Heart rate 67 /min Annie Abreu APRN.CHAMFERING MACHINE OPERATOR Work Phone: [facility] 06-16-2023 08:53-0400 Respiratory rate 18 /min Annie Abreu APRN.CHAMFERING MACHINE OPERATOR Work Phone: [facility] 06-16-2023 08:53-0400 SaO2% (BldA) [Mass fraction] 100 % Annie Abreu APRN.CHAMFERING MACHINE OPERATOR Work Phone: [facility] 06-16-2023 08:53-0400 Systolic blood pressure 136 mm[Hg] Annie Abreu APRN.CHAMFERING MACHINE OPERATOR Work Phone: [facility] 05-19-2023 10:45-0400 Body height 174 cm Hannah Lyons RN Work Phone: [facility] 05-19-2023 10:17-0400 Body temperature 97.7 [degF] Annie Abreu APRN.CHAMFERING MACHINE OPERATOR Work Phone: [facility] 05-19-2023 10:17-0400 Body weight 83.8 kg Annie Abreu APRN.CHAMFERING MACHINE OPERATOR Work Phone: [facility] 05-19-2023 10:17-0400 Diastolic blood pressure 66 mm[Hg] Annie Lois CONFIGURATION MANAGEMENT ANALYST.CHAMFERING MACHINE OPERATOR Work Phone: [facility] 05-19-2023 10:17-0400 Heart rate 74 /min Annielisa Abreu CONFIGURATION MANAGEMENT ANALYST.CHAMFERING MACHINE OPERATOR Work Phone: [facility] 05-19-2023 10:17-0400 Respiratory rate 18 /min Annielisa Abreu CONFIGURATION MANAGEMENT ANALYST.CHAMFERING MACHINE OPERATOR Work Phone: [facility] 05-19-2023 10:17-0400 SaO2% (BldA) [Mass fraction] 99 % Annie Abreu CONFIGURATION MANAGEMENT ANALYST.CHAMFERING MACHINE OPERATOR Work Phone: [facility] 05-19-2023 10:17-0400 Systolic blood pressure 125 mm[Hg] Annie Abreu CONFIGURATION MANAGEMENT ANALYST.CHAMFERING MACHINE OPERATOR Work Phone: [facility] 03-24-2023 09:49-0500 Body temperature 97.5 [degF] Annie Abreu CONFIGURATION MANAGEMENT ANALYST.CHAMFERING MACHINE OPERATOR Work Phone: [facility] 03-24-2023 09:49-0500 Body weight 83.9 kg Annie Abreu CONFIGURATION MANAGEMENT ANALYST.CHAMFERING MACHINE OPERATOR Work Phone: [facility] 03-24-2023 09:49-0500 Diastolic blood pressure 71 mm[Hg] Annie Abreu CONFIGURATION MANAGEMENT ANALYST.CHAMFERING MACHINE OPERATOR Work Phone: [facility] 03-24-2023 09:49-0500 Heart rate 72 /min Annie Abreu CONFIGURATION MANAGEMENT ANALYST.CHAMFERING MACHINE OPERATOR Work Phone: [facility] 03-24-2023 09:49-0500 Respiratory rate 18 /min Annie Abreu CONFIGURATION MANAGEMENT ANALYST.CHAMFERING MACHINE OPERATOR Work Phone: [facility] 03-24-2023 09:49-0500 SaO2% (BldA) [Mass fraction] 100 % nAnie Abreu CONFIGURATION MANAGEMENT ANALYST.CHAMFERING MACHINE OPERATOR Work Phone: [facility] 03-24-2023 09:49-0500 Systolic blood pressure 142 mm[Hg] Annie Lois CONFIGURATION MANAGEMENT ANALYST.CHAMFERING MACHINE OPERATOR Work Phone: [facility] 12-02-2022 11:50-0400 Diastolic blood pressure 70 mm[Hg] Hannah Lyons RN Work Phone: [facility] 12-02-2022 11:50-0400 Systolic blood pressure 136 mm[Hg] Hannah Lyons RN Work Phone: [facility] 10-07-2022 10:55-0400 Body temperature 97.39 [degF] Sheryl Param PA-C Work Phone: [facility] 10-07-2022 10:55-0400 Body weight 86.82 kg Sheryl Param PA-C Work Phone: [facility] 10-07-2022 10:55-0400 Diastolic blood pressure 65 mm[Hg] Sheryl Param PA-C Work Phone: [facility] 10-07-2022 10:55-0400 Heart rate 66 /min Sheryl Param PA-C Work Phone: [facility] 10-07-2022 10:55-0400 Respiratory rate 18 /min Sheryl Param PA-C Work Phone: [facility] 10-07-2022 10:55-0400 SaO2% (BldA) [Mass fraction] 100 % Sheryl Param PA-C Work Phone: [facility] 10-07-2022 10:55-0400 Systolic blood pressure 136 mm[Hg] Sheryl Param PA-C Work Phone: [facility] 10-06-2022 10:15-0400 Body height 177.8 cm Tigre Ball Other [facility] Other 10-06-2022 10:15-0400 Body mass index (BMI) [Ratio] 27.8 kg/m2 Tigre Ball Other [facility] Other 10-06-2022 10:15-0400 Body weight 87.91 kg Tigre Ball Other [facility] Other 10-06-2022 10:15-0400 Diastolic blood pressure 72 mm[Hg] Tigre Ball Other [facility] Other 10-06-2022 10:15-0400 Respiratory rate 12 /min Tigre Ball Other [facility] Other 10-06-2022 10:15-0400 Systolic blood pressure 126 mm[Hg] Tigre Ball Other [facility] Other 08-13-2022 13:50-0400 Body temperature 98.29 [degF] Annie Abreu CONFIGURATION MANAGEMENT ANALYST.CHAMFERING MACHINE OPERATOR Work Phone: [facility] 08-13-2022 13:50-0400 Body weight 85.41 kg Annie Abreu CONFIGURATION MANAGEMENT ANALYST.CHAMFERING MACHINE OPERATOR Work Phone: [facility] 08-13-2022 13:50-0400 Diastolic blood pressure 69 mm[Hg] Annie Abreu CONFIGURATION MANAGEMENT ANALYST.CHAMFERING MACHINE OPERATOR Work Phone: [facility] 08-13-2022 13:50-0400 Heart rate 79 /min Annie Abreu CONFIGURATION MANAGEMENT ANALYST.CHAMFERING MACHINE OPERATOR Work Phone: [facility] 08-13-2022 13:50-0400 Respiratory rate 18 /min Annie Abreu CONFIGURATION MANAGEMENT ANALYST.CHAMFERING MACHINE OPERATOR Work Phone: [facility] 08-13-2022 13:50-0400 SaO2% (BldA) [Mass fraction] 99 % Annie Abreu CONFIGURATION MANAGEMENT ANALYST.CHAMFERING MACHINE OPERATOR Work Phone: [facility] 08-13-2022 13:50-0400 Systolic blood pressure 132 mm[Hg] Annie Abreu CONFIGURATION MANAGEMENT ANALYST.CHAMFERING MACHINE OPERATOR Work Phone: [facility] 06-17-2022 11:05-0400 Body temperature 97.7 [degF] Sheryl Param PA-C Work Phone: [facility] 06-17-2022 11:05-0400 Body weight 84.37 kg Sheryl Gonzalez PA-C Work Phone: [facility] 06-17-2022 11:05-0400 Diastolic blood pressure 66 mm[Hg] Sheryl Sandhuberg PA-C Work Phone: [facility] 06-17-2022 11:05-0400 Heart rate 71 /min Sheryl Sandhuberg PA-C Work Phone: [facility] 06-17-2022 11:05-0400 Respiratory rate 18 /min Sheryl Sandhuberg PA-C Work Phone: [facility] 06-17-2022 11:05-0400 SaO2% (BldA) [Mass fraction] 99 % Sheryl Gonzalez PA-C Work Phone: [facility] 06-17-2022 11:05-0400 Systolic blood pressure 132 mm[Hg] Sheryl Sandhuberg PA-C Work Phone: [facility] 02-25-2022 13:15-0500 Body temperature 97.7 [degF] Bryce Ventura MD Work Phone: [facility] 02-25-2022 13:15-0500 Body weight 83.6 kg Bryce Ventura MD Work Phone: [facility] 02-25-2022 13:15-0500 Diastolic blood pressure 75 mm[Hg] Bryce Ventura MD Work Phone: [facility] 02-25-2022 13:15-0500 Heart rate 79 /min Bryce Ventura MD Work Phone: [facility] 02-25-2022 13:15-0500 Respiratory rate 18 /min Bryce Ventura MD Work Phone: [facility] 02-25-2022 13:15-0500 SaO2% (BldA) [Mass fraction] 100 % Bryce Ventura MD Work Phone: [facility] 02-25-2022 13:15-0500 Systolic blood pressure 124 mm[Hg] Bryce Ventura MD Work Phone: [facility] 01-28-2022 11:26-0500 Body temperature 97.9 [degF] Meghan Graves CONFIGURATION MANAGEMENT ANALYST.CHAMFERING MACHINE OPERATOR Work Phone: [facility] 01-28-2022 11:26-0500 Body weight 84.14 kg Meghan Graves CONFIGURATION MANAGEMENT ANALYST.CHAMFERING MACHINE OPERATOR Work Phone: [facility] 01-28-2022 11:26-0500 Diastolic blood pressure 62 mm[Hg] Meghan Graves CONFIGURATION MANAGEMENT ANALYST.CHAMFERING MACHINE OPERATOR Work Phone: [facility] 01-28-2022 11:26-0500 Heart rate 88 /min Meghan Graves CONFIGURATION MANAGEMENT ANALYST.CHAMFERING MACHINE OPERATOR Work Phone: [facility] 01-28-2022 11:26-0500 Respiratory rate 18 /min Meghan Graves CONFIGURATION MANAGEMENT ANALYST.CHAMFERING MACHINE OPERATOR Work Phone: [facility] 01-28-2022 11:26-0500 SaO2% (BldA) [Mass fraction] 100 % Meghan Graves CONFIGURATION MANAGEMENT ANALYST.CHAMFERING MACHINE OPERATOR Work Phone: [facility] 01-28-2022 11:26-0500 Systolic blood pressure 137 mm[Hg] Meghan Graves CONFIGURATION MANAGEMENT ANALYST.CHAMFERING MACHINE OPERATOR Work Phone: [facility] 12-31-2021 11:04-0500 Body height 178.4 cm Meghan Graves CONFIGURATION MANAGEMENT ANALYST.CHAMFERING MACHINE OPERATOR Work Phone: [facility] 12-31-2021 11:04-0500 Body temperature 98.2 [degF] Meghan Graves CONFIGURATION MANAGEMENT ANALYST.CHAMFERING MACHINE OPERATOR Work Phone: [facility] 12-31-2021 11:04-0500 Body weight 82.56 kg Meghan Graves CONFIGURATION MANAGEMENT ANALYST.CHAMFERING MACHINE OPERATOR Work Phone: [facility] 12-31-2021 11:04-0500 Diastolic blood pressure 73 mm[Hg] Meghan Graves CONFIGURATION MANAGEMENT ANALYST.CHAMFERING MACHINE OPERATOR Work Phone: [facility] 12-31-2021 11:04-0500 Heart rate 78 /min Meghan Graves CONFIGURATION MANAGEMENT ANALYST.CHAMFERING MACHINE OPERATOR Work Phone: [facility] 12-31-2021 11:04-0500 Respiratory rate 18 /min Meghan Graves CONFIGURATION MANAGEMENT ANALYST.CHAMFERING MACHINE OPERATOR Work Phone: [facility] 12-31-2021 11:04-0500 SaO2% (BldA) [Mass fraction] 100 % Meghan Graves CONFIGURATION MANAGEMENT ANALYST.CHAMFERING MACHINE OPERATOR Work Phone: [facility] 12-31-2021 11:04-0500 Systolic blood pressure 127 mm[Hg] Meghan Graves CONFIGURATION MANAGEMENT ANALYST.CHAMFERING MACHINE OPERATOR Work Phone: [facility] 11-05-2021 12:58-0400 Body height 173.9 cm Emghan Graves CONFIGURATION MANAGEMENT ANALYST.CHAMFERING MACHINE OPERATOR Work Phone: [facility] 11-05-2021 12:58-0400 Body temperature 98.2 [degF] Meghan Graves CONFIGURATION MANAGEMENT ANALYST.CHAMFERING MACHINE OPERATOR Work Phone: [facility] 11-05-2021 12:58-0400 Body weight 83.37 kg Meghan Graves CONFIGURATION MANAGEMENT ANALYST.CHAMFERING MACHINE OPERATOR Work Phone: [facility] 11-05-2021 12:58-0400 Diastolic blood pressure 61 mm[Hg] Meghan Graves CONFIGURATION MANAGEMENT ANALYST.CHAMFERING MACHINE OPERATOR Work Phone: [facility] 11-05-2021 12:58-0400 Heart rate 88 /min Meghan Graves CONFIGURATION MANAGEMENT ANALYST.CHAMFERING MACHINE OPERATOR Work Phone: [facility] 11-05-2021 12:58-0400 Respiratory rate 16 /min Meghan Graves CONFIGURATION MANAGEMENT ANALYST.CHAMFERING MACHINE OPERATOR Work Phone: [facility] 11-05-2021 12:58-0400 SaO2% (BldA) [Mass fraction] 100 % Meghan Graves CONFIGURATION MANAGEMENT ANALYST.CHAMFERING MACHINE OPERATOR Work Phone: [facility] 11-05-2021 12:58-0400 Systolic blood pressure 129 mm[Hg] Meghan Graves CONFIGURATION MANAGEMENT ANALYST.CHAMFERING MACHINE OPERATOR Work Phone: [facility] 10-08-2021 13:14-0400 Body height 173.8 cm Elizabeth Shaun CONFIGURATION MANAGEMENT ANALYST.CHAMFERING MACHINE OPERATOR Work Phone: [facility] 10-08-2021 13:14-0400 Body temperature 97.5 [degF] Elizabeth Shaun CONFIGURATION MANAGEMENT ANALYST.CHAMFERING MACHINE OPERATOR Work Phone: [facility] 10-08-2021 13:14-0400 Body weight 82.83 kg Elizabeth Shaun CONFIGURATION MANAGEMENT ANALYST.CHAMFERING MACHINE OPERATOR Work Phone: [facility] 10-08-2021 13:14-0400 Diastolic blood pressure 61 mm[Hg] Elizabeth Shaun CONFIGURATION MANAGEMENT ANALYST.CHAMFERING MACHINE OPERATOR Work Phone: [facility] 10-08-2021 13:14-0400 Heart rate 76 /min Elizabeth Shaun CONFIGURATION MANAGEMENT ANALYST.CHAMFERING MACHINE OPERATOR Work Phone: [facility] 10-08-2021 13:14-0400 Respiratory rate 16 /min Elizabeth Shaun CONFIGURATION MANAGEMENT ANALYST.CHAMFERING MACHINE OPERATOR Work Phone: [facility] 10-08-2021 13:14-0400 SaO2% (BldA) [Mass fraction] 99 % Elizabeth Shaun CONFIGURATION MANAGEMENT ANALYST.CHAMFERING MACHINE OPERATOR Work Phone: [facility] 10-08-2021 13:14-0400 Systolic blood pressure 127 mm[Hg] Elizabeth Shaun CONFIGURATION MANAGEMENT ANALYST.CHAMFERING MACHINE OPERATOR Work Phone: [facility] 09-10-2021 13:33-0400 Body height 176.6 cm Bryce Ventura MD Work Phone: [facility] 09-10-2021 13:33-0400 Body temperature 97.9 [degF] Bryce Ventura MD Work Phone: [facility] 09-10-2021 13:33-0400 Body weight 84.19 kg Bryce Ventura MD Work Phone: [facility] 09-10-2021 13:33-0400 Diastolic blood pressure 66 mm[Hg] Bryce Ventura MD Work Phone: [facility] 09-10-2021 13:33-0400 Heart rate 69 /min Bryce Ventura MD Work Phone: [facility] 09-10-2021 13:33-0400 Respiratory rate 16 /min Bryce Ventura MD Work Phone: [facility] 09-10-2021 13:33-0400 SaO2% (BldA) [Mass fraction] 99 % Bryce Ventura MD Work Phone: [facility] 09-10-2021 13:33-0400 Systolic blood pressure 130 mm[Hg] Bryce Ventura MD Work Phone: [facility] 08-11-2021 12:48-0400 Body height 176.6 cm Elizabeth Shaun CONFIGURATION MANAGEMENT ANALYST.CHAMFERING MACHINE OPERATOR Work Phone: [facility] 08-11-2021 12:48-0400 Body temperature 97.81 [degF] Elizabeth Shaun CONFIGURATION MANAGEMENT ANALYST.CHAMFERING MACHINE OPERATOR Work Phone: [facility] 08-11-2021 12:48-0400 Body weight 84.28 kg Elizabeth Shaun CONFIGURATION MANAGEMENT ANALYST.CHAMFERING MACHINE OPERATOR Work Phone: [facility] 08-11-2021 12:48-0400 Diastolic blood pressure 69 mm[Hg] Elizabeth Shaun CONFIGURATION MANAGEMENT ANALYST.CHAMFERING MACHINE OPERATOR Work Phone: [facility] 08-11-2021 12:48-0400 Heart rate 72 /min Elizabeth Shaun CONFIGURATION MANAGEMENT ANALYST.CHAMFERING MACHINE OPERATOR Work Phone: [facility] 08-11-2021 12:48-0400 Respiratory rate 16 /min Elizabeth Shaun CONFIGURATION MANAGEMENT ANALYST.CHAMFERING MACHINE OPERATOR Work Phone: [facility] 08-11-2021 12:48-0400 SaO2% (BldA) [Mass fraction] 99 % Elizabeth Shaun CONFIGURATION MANAGEMENT ANALYST.CHAMFERING MACHINE OPERATOR Work Phone: [facility] 08-11-2021 12:48-0400 Systolic blood pressure 115 mm[Hg] Elizabeth Shaun CONFIGURATION MANAGEMENT ANALYST.CHAMFERING MACHINE OPERATOR Work Phone: [facility] 07-14-2021 10:08-0400 Body height 176.6 cm Bryce Ventura MD Work Phone: [facility] 07-14-2021 10:08-0400 Body temperature 97.9 [degF] Bryce Ventura MD Work Phone: [facility] 07-14-2021 10:08-0400 Body weight 84.82 kg Bryce Ventura MD Work Phone: [facility] 07-14-2021 10:08-0400 Diastolic blood pressure 63 mm[Hg] Bryce Ventura MD Work Phone: [facility] 07-14-2021 10:08-0400 Heart rate 70 /min Bryce Ventura MD Work Phone: [facility] 07-14-2021 10:08-0400 Respiratory rate 18 /min Bryce Ventura MD Work Phone: [facility] 07-14-2021 10:08-0400 SaO2% (BldA) [Mass fraction] 100 % Bryce Ventura MD Work Phone: [facility] 07-14-2021 10:08-0400 Systolic blood pressure 130 mm[Hg] Bryce Ventura MD Work Phone: [facility] 05-21-2021 10:48-0400 Body height 176.6 cm Meghan Graves CONFIGURATION MANAGEMENT ANALYST.CHAMFERING MACHINE OPERATOR Work Phone: [facility] 05-21-2021 10:48-0400 Body temperature 98.1 [degF] Meghan Graves CONFIGURATION MANAGEMENT ANALYST.CHAMFERING MACHINE OPERATOR Work Phone: [facility] 05-21-2021 10:48-0400 Body weight 86.82 kg Meghan Graves CONFIGURATION MANAGEMENT ANALYST.CHAMFERING MACHINE OPERATOR Work Phone: [facility] 05-21-2021 10:48-0400 Diastolic blood pressure 74 mm[Hg] Meghan Graves CONFIGURATION MANAGEMENT ANALYST.CHAMFERING MACHINE OPERATOR Work Phone: [facility] 05-21-2021 10:48-0400 Heart rate 73 /min Meghan Graves CONFIGURATION MANAGEMENT ANALYST.CHAMFERING MACHINE OPERATOR Work Phone: [facility] 05-21-2021 10:48-0400 Respiratory rate 18 /min Meghan Graves APRN.CHAMFERING MACHINE OPERATOR Work Phone: [facility] 05-21-2021 10:48-0400 SaO2% (BldA) [Mass fraction] 100 % Meghan Graves APRN.CASS Work Phone: [facility] 05-21-2021 10:48-0400 Systolic blood pressure 134 mm[Hg] Meghan Graves APRN.CHAMFERING MACHINE OPERATOR Work Phone: [facility] Clinical Notes 05-21-2021 to 08-11-2023 Anaid Mabry RN - 08/11/2023 9:00 AM Kun Smalls APRN.CNP - 07/14/2023 9:36 AM EDTPHannah swan OCCA - 07/14/2023 9:32 AM EDHannah Godwin OCCA - 07/14/2023 9:32 AM EDT Note Date & Type Note Facility 08-11-2023 History of Presen t illness Narrative Summary: PTG 1923/24-180 Week 12 visit Title:An Extension Study to Evaluate the Long-term Safety of Rusfertide (PTG-300) in Subjects with Polycythemia Vera Consent expiration 04/13/2024 Screening date: 05/19/2023 Subject#: [id number] PTG 1Z21: Week 1 02/26/2021. EOT 05/19/2023. Rolled over to PT 1923 on 05/19/2023. Week 0: 05/19/2023 PTG-300 45 mg SC weekly Week 4: 06/16/2023 Maintain dosing Week 8: 07/14/2023 Maintain dosing Patient is here today for Week 12 VISIT for the PTG 1923 Trial, IRB# [id number]. Patient signed Informed Consent on 05/19/2023, prior to any study related procedures. PE: Dr. Hernández Patient is a Male with PV. Patient is willing and able to comply with the protocol for the duration of the study including undergoing treatment and scheduled visits and examinations. Male patients must always use a condom during and up to 90 days after the last dose of PTG-300 or rusfertide. Pt here with his . No new complaints or signs/symptoms with new formulation of study medication. Pt denies any symptoms or concerns with injection sites. Pt did start magnesium supplements to help with restless leg. First Visit May 19, 2023: Patient does continue to meet eligibility to proceed with therapy Subsequent Visit August 11, 2023: Patient does continue to meet parameters to proceed with therapy Concomitant medications reviewed per protocol: yes Changes per patient: yes- started magnesium supplement Quality of life questionnaire completed per protocol: Yes Clinical trial labs completed per protocol: Yes Vitals completed per protocol: Yes ECO EKG: Not required this visit Spleen: [address] Hernández MPN-SAF (MPN-10) TSS: 08/11/2023 Perameter Score (0 if absent to 10 if worst imaginable) In the past 24 hours: Fatigue 0 In the past 7 days: Early satiety 0 Abdominal pain (and discomfort) 0 Inactivity 0 Concentration 0 Night sweats 0 Pruritus 0 Diffuse Bone pain (not joint pain/arthritis) 0 Fever (>100 F, 10 = daily) 0 Weight loss (or gain) in past 6 months 0 Overall QoL 0 Enrique RM et alJ Clin Oncol 2012;30:[id number]. PAST MEDICAL HISTORY Diagnosis Date Status/Active Issues Elevated prostate specific antigen (PSA) 09/2020 Controlled Hypertension 10/2020 Controlled with medication REYMUNDO (obstructive sleep apnea) ~2019 Uncontrolled/does not use CPAP Polycythemia Vera 09/2020 Uncontrolled Seasonal allergic rhinitis due to pollen *greater than 30 years Controlled with medication DVT, left upper arm after clavicle repair 2001 Lump to right side of neck, *pt reported-lypoma?? 2016 2016 Vitiligo ~2002 Diastasis recti 10/06/2022 PAST SURGICAL HISTORY Procedure Laterality Date CLAVICLE LEFT REPAIR 2001 COLONOSCOPY 2015 DIAGNOSTIC ARTHROSCOPY KNEE Right ~2006 Inguinal hernia repair ~1979 INGUINAL HERNIA MESH REPAIR HX ~1998 REMOVE TONSILS/ADENOIDS,<12 Y/O ~ Social history: Smoking status: nonsmoker ETOH intake: Drinks on average 1-2 times per week, 2 rum and cokes. Denies recreational drug use. 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 HTN 10/2020 Stopped ~10/24/2022 multivitamin with minerals (ONE-A-DAY 50 PLUS ORAL) 1 tab PO daily Health *greater than 8 years aspirin 81 mg cap 81 mg PO daily Heart/PV 2019 Kenalog injection 60 mg IM twice a year Seasonal allergies ~1989 Zithromax 500 mg po first day and 250 mg daily for 4 days Sinus congestion ~03/11/2021 Stopped 03/15/2021 Flonase 2 sprays in each nostril daily Sinus congestion ~03/11/2021 Stopped 03/15/2021 Sulfacetamide eye gtts, 10% 2 gtts in each eye for QID Eye infection ~03/11/2021 Stopped ~03/17/2021 Tylenol 1 gram PO TID PRN Headaches 03/02/2021 Hydrocortiscone cream, OTC Apply to area BID Injection site reaction 03/19/2021 Paxlovid (nirmatrelvir 300 mg and ritonavir 100 mg) PO twice daily for 5 days Covid-19 infection ~12/15/2021 Stopped 12/20/2021 Cefuroxime-Axeil 500 mg PO BID x 7 days URI ~02/10/2022 Stopped ~02/18/2022 Terbinafine HCL Oral 250 mg by mouth once daily Fungal skin infection 07/2022 Efinaconazole 10% cream Apply 1 application to affected area once daily Fungal skin infection 07/2022 Opzelura 1.5% cream Apply twice daily to areas of skin with vitiligo Vitiligo Pt to call when starts medication still not started as of 08/13/2022 Meclizine 12.5 mg 2 tablets by mouth twice daily as needed dizziness 08/13/2022 Stopped 08/14/2022 Doxycycline 100 mg PO BID Pneumonia 12/03/2022 12/03/2022. Pt took only one dose. Albuterol inhaler 90 mcg/actuation 2 puffs inhaled very 6 hours PRN Pneumonia 12/04/2022 Zithromax 500 mg PO day 1 and then 250 mg for 4 days Pneumonia 12/04/2022 12/08/2022 Prednisone 50 mg PO daily x 5 days Pneumonia 12/04/2022 12/08/2022 magnesium glycinate 100 mg magnesium capsule Take 2 capsules by mouth once daily. Take 2 capsules by mouth once daily in late afternoon - taking PRN Supplement 07/14/2023 - taking PRN Prior PV therapy: Phlebotomies 11/2020 to present Baseline toxicities per CTCAE v. 5: All predate therapy, are chronic conditions and will not be actively followed unless they worsen during the clinical trial. Pruritus Grade 1. Baseline. Start date: 12/2020. Resolve date: ongoing. Drugs to treat: none. Outcome: present intermittently Night sweats Grade 1. Baseline. Start date: 2018. Resolve date: ongoing. Drugs to treat: none. Outcome: present intermittently Bone pain (legs)Grade 1. Baseline. Start date: 12/2020. Resolve date: ongoing. Drugs to treat: none. Outcome: present intermittently Lump to right side of neck (lypoma?) Grade 1. Baseline. Start date: 2015. Resolve date: ongoing. Drugs to treat: none. Outcome: still present Urinary frequency Grade 1. Baseline. Start date: 2020. Resolve date: ongoing. Drugs to treat: none. Outcome: still present Skin hypopigmentation (Vitiligo) Grade 1. Baseline. Start date: ~2002. Resolve date: ongoing. Drugs to treat: opzelura cream. Outcome: still present Toxicities per CTCAE v.5: 08/11/2023 Anemia Grade 1. RELATED to PTG-300. Start date: 03/13/2021. Resolve date: ongoing. Drugs to treat: none. Outcome: still present Injection site reaction (firmness) Grade 1. RELATED to PTG-300. Start date: 04/23/2021. Resolve date: ongoing with each weekly injection. Drugs to treat: hydrocortisone, ice. Outcome: present intermittently with each injection of PTG-300 and resolves 6-7 days after the injection Injection site reaction (erythema, swelling) Grade 1. RELATED to PTG-300. Start date: 04/23/2021. Resolve date: ongoing with each weekly injection. Drugs to treat: hydrocortisone, ice. Outcome: present intermittently with each injection of PTG-300 and resolves 3-4 days after the injection Fatigue Grade 1. UNRELATED to PTG-300. Start date: 06/2021. Resolve date: ongoing. Drugs to treat: none. Outcome: still present Hair loss Grade 1. UNRELATED to PTG-300. Start date: 11/2021. Resolve date: ongoing. Drugs to treat: none. Outcome: still present Restless legs Grade 1. UNRELATED. Start date: ~04/2021. Resolve date: ongoing. Drugs to treat: Magnesium. Outcome: present intermittently Fungal fingernail infection (to bilateral hands) Grade 2. UNRELATED to PTG-300. Start date: 2022. Resolve date: ongoing. Drugs to treat: Efinaconazole 10% cream, Terbinafine. Outcome: still present, improving General disorders and administration site conditions (abd skin tougher/thickened) Grade 1. RELATED to PTG-300. Start date: ~04/2022. Resolve date: ongoing. Drugs to treat: none. Outcome: still present Musculoskeletal and connective tissue disorder (Diastasis recti) Grade 1. UNRELATED to PTG-300. Start date: 09/2022. Resolve date: ongoing. Drugs to treat: none. Outcome: still present Resolved: Hypokalemia Grade 1. UNRELATED to PTG-300. Start date: 03/24/2023. Resolve date: 05/19/2023. Drugs to treat: none. Outcome: resolved Creatinine increased Grade 1. UNRELATED to PTG-300. Start date: 03/24/2023. Resolve date: 05/19/2023. Drugs to treat: none. Outcome: resolved Cold feet bilaterally Grade 1. UNRELATED to PTG-300. Start date:~08/21/2021. Resolve date: 06/16/2023. Drugs to treat: none. Outcome: resolved Injection site reaction (bruising) Grade 1. RELATED to PTG-300. Start date: 03/26/2021. Resolve date: 06/16/2023. Drugs to treat: none. Outcome: resolved Returned: 4 empty cartons of 45 mg doses of PTG-300. The count is accurate. Collected and reviewed completed medication diary. Dispensed: The patient was given a new medication diary and 12 cartons of rusfertide 45 mg each as dispensed by the pharmacy in pt's cooler with ice packs. Pt instructed to return empty cartons and medication diary at next clinic visit. Use of the study medication diary and dosing instructions were reviewed with the patient. Instructed pt to put empty vials and syringes in the sharps container. Pt to dispose of full sharps containers per his [facility]'s trash disposal guidelines. Pt verbalized understanding. 45 mg cartons #s: [id number], [id number], [id number], [id number], [id number], [id number], [id number] Dosing: Reviewed mixing and administration directions for the PTG-300. Discussed rotation of injection sites and to not use the same site as the previous week. Pt verbalized understanding and denied any issues with mixing or administering the study medication. Pt to self administered 45 mg PTG-300 SC injection at home today. Patient aware to call the research team for injection site reactions that do not resolve in 24 hours. Pt aware tylenol can be taken for injection site pain and may use ice. OTC Hydrocortisone cream may be used on injection sites or he may take zyrtec or magno 1 hour prior to injection to decrease injection site reaction. Pt verbalized understanding. Discussed storage of study medication in refrigerator and can be room temperature for 12 hours. Patient aware to RTC on 11/03/2023 for Week 24 of PTG 1923. The provider has reviewed and verified the information included within this note, including AE information Patient understands that the nurse or MD must be called prior to taking any new medications as well as stopping any medications. Patient also understands to call nurse or MD should there any new medical issues arise and/or goes to the hospital for any reason. Patient is aware to monitor temperature and to call and/or go to the nearest emergency room for temperatures of 100.4 or greater. Patient knows to call in the interim for any questions or concerns. Patient has contact information for Hannah Lyons RN Research Nurse and Dr. Ventura, along with the 24 hour On-Call number for the On-Call Oncology Fellow ([phone]). Patient understands that this participation is voluntary and may withdrawal at any time during the trial. Anaid Mabry RN BSN documented in this encounter [facility] 08-11-2023 Note [facility] 07-14-2023 Note [facility] 07-14-2023 History of Presen t illness Narrative Elements have been copied from prior note on 06/16/2023 - The elements have been reviewed and updated where appropriate, and all reflect my current assessment and decision-making from today, 07/14/2023. [facility] Clinical Note Assessment and Plan In summary: Mr. Leos is a 58 year old gentleman with polycythemia vera. Problem List Polycythemia vera He also has a history of erythrocytosis, elevated PSA, HTN, and REYMUNDO (not on CPAP). He did have a left upper arm DVT in 1999 which was provoked by a left clavicle surgery. He had an elevated hemoglobin as far back as August 2013 (but it was normal again in January of 2015). In September of 2020 he had a hemoglobin of 18.8 g/dL. Subsequent erythropoietin testing was 1.1 mIU/mL. Testing of the peripheral blood on 10/16/2020 was negative for BCR-ABL, but positive for JAK2 V617F (VAF 47%). He started treatment with PTG-300 on 02/26/2021 (PTG 1Z21 - phase II study). He had not required phlebotomies throughout the duration of this study. EOT visit was 05/19/2023 as patient elected to continue participation in rollover study w/ rusfertide, PTG 1923, which he started that same day. Dosing on PTG 1923 was initiated at 45 mg weekly despite his stable dose of 60 mg weekly on prior PTG 1Z21 study; this was due to reformulation of drug. Today (07/14/2023) is week 8 visit of PTG 1923. He continues on 45 mg weekly dosing and is tolerating it well. No injection reactions. Labs overall stable - No contraindication to continuing investigational Rusfertide today. DERM Started opzelura (topical ruxolitinib) in early 2022, was taking sporadically for vitiligo with noted improvement, particularly to bilateral hands. Also uses topical antifungal for fingernails (efinaconazole). Follows locally w/ dermatology. No areas of concern r/t rusfertide injections. HTN Was advised by PCP in the summer (2022) to stop his amlodipine d/t stable BPs - BP remains well-controlled off of medication. Continue follow-up with PCP. RTC in 4 weeks for week 12 visit per study protocol - currently scheduled for 08/11/2023. Patient aware to contact research team with any questions or concerns. Kun Mattson APRN-[facility] Hematology/Oncology Pager [phone] 1:06 PM July 14, 2023 I spent a total of 30 minutes on the date of the service which included preparing to see the patient, [id number] patient care, obtaining and/or reviewing separately obtained history, performing a medically appropriate examination, counseling and educating the patient/family/caregiver, ordering medications, tests, or procedures, communicating with other HCPs (not separately reported), independently interpreting results (not separately reported), and communicating results to the patient/family/caregiver. Visit Details Interval History Mr. Leos presents today for follow up, accompanied by his . His only complaint today is cramping in his bilateral calves that occurs mainly at night time. I sent over a prescription for magnesium. He will try that to see if that helps with his cramping. He otherwise, is doing well. Patient denies fever, chills, chest pain, nausea, vomiting, SOB, diarrhea, constipation, dysuria, lightheadedness, and dizziness. An inventory of his MPN-related symptoms are as follows: MPN-SAF (MPN-10) TSS (06/16/2023): Parameter Score (0 if absent to 10 if worst imaginable) In the past 24 hours: Fatigue 0 In the past 7 days: Early satiety 0 Abdominal pain (and discomfort) 0 Inactivity 0 Concentration 0 Night sweats 0 Pruritus 0 Diffuse Bone pain (not joint pain/arthritis) 0 Fever (>100 F, 10 = daily) 0 Weight loss (or gain) in past 6 months 0 Overall QoL 0 Enrique WILLINGHAM et alJ Clin Oncol 2012;30:[id number]. Review of Systems Reviewed and reported in HPI/Interval history above Adjunct Histories PAST MEDICAL HISTORY Diagnosis Date Elevated prostate specific antigen (PSA) Hypertension REYMUNDO (obstructive sleep apnea) Polycythemia Seasonal allergic rhinitis due to pollen PAST SURGICAL HISTORY Procedure Laterality Date ARTHROSCOPY KNEE DIAGNOSTIC W/WO SYNOVIAL BX SPX Right CLAVICLE LEFT COLONOSCOPY 2014 INGUINAL HERNIA REPAIR HX TONSILLECTOMY & ADENOIDECTOMY <AGE 11 Social History Tobacco Use Smoking status: Never Smokeless tobacco: Never Vaping Use Vaping Use: Never used Substance Use Topics Alcohol use: Yes Drug use: Not Currently Allergies and Medications ALLERGIES Allergen Reactions Bactrim [Sulfametho* Rash efinaconazole 10 % alfa Apply 1 application to affected area once daily. ruxolitinib phosphate (OPZELURA TOPICAL) Apply to affected area. KRILL OIL ORAL Take by mouth twice daily. multivitamin with minerals (ONE-A-DAY 50 PLUS ORAL) Take by mouth once daily. aspirin 81 mg cap Take by mouth once daily. Exam Vital Signs 07/14/23 0933 BP: 135/67 Pulse: 79 Resp: 18 Temp: 36.8 C (98.3 F) TempSrc: Oral SpO2: 100% Weight: 83.5 kg (184 lb 1.4 oz) Performance Status Karnofsky Scale:100 - Normal, no complaints, no evidence of disease. ECOG/Zubrod Performance Scale: 0- Fully active, able to carry on all pre-disease performance w/o restriction. Examination Physical Examination: General: Well appearing, in NAD, appropriate. HEENT: Anicteric Sclera, EOMI. MMM. Pulm: CTA bilaterally. No cough or increased WOB. Cardiac: RRR, no murmurs noted. Abd: BS+, NT, ND, no masses, no HSM; spleen tip not palpable on exam w/ deep inspiration. Skin: No obvious lesions or rashes +Vitiglio to fingers/hands stable. +Nail discoloration to fingernails of left index and middle fingers - chronic, stable. Neuro: CN II - XII grossly intact. Normal gait. Objective Data Labs and Imaging Reviewed, please see Epic. documented in this encounter [facility] 07-14-2023 Nurse Note Additional intake questions: Has the patient had fever, nausea, vomiting, diarrhea, constipation, fatigue for > 1 week? No Does the patient have a decreased appetite? No Does patient want to see a Service Order Expediter? No (yes to any of above refer patient to schedulers for dietitian appointment) ) Does patient have any new or increased numbness or tingling of extremities? No Is patient interested in fertility information? No Does patient need any prescription refills? No Does patient have an advanced directive in place? No [facility] 07-14-2023 Nurse Note Additional intake questions: Has the patient had fever, nausea, vomiting, diarrhea, constipation, fatigue for > 1 week? No Does the patient have a decreased appetite? No Does patient want to see a Service Order Expediter? No (yes to any of above refer patient to schedulers for dietitian appointment) ) Does patient have any new or increased numbness or tingling of extremities? No Is patient interested in fertility information? No Does patient need any prescription refills? No Does patient have an advanced directive in place? No documented in this encounter [facility] 07-14-2023 History of Presen t illness Narrative Summary: PTG 1923/24-180 Week 8 visit Title:An Extension Study to Evaluate the Long-term Safety of Rusfertide (PTG-300) in Subjects with Polycythemia Vera Consent expiration 04/13/2024 Screening date: 05/19/2023 Subject#: [id number] PTG 1Z21: Week 1 02/26/2021. EOT 05/19/2023. Rolled over to [facility] 1923 on 05/19/2023. Week 0: 05/19/2023 PTG-300 45 mg SC weekly Week 4: 06/16/2023 Maintain dosing Patient is here today for Week 8 VISIT for the PTG 1923 Trial, IRB# [id number]. Patient signed Informed Consent on 05/19/2023, prior to any study related procedures. PE completed by Tobin Mattson CNP Patient is a Male with PV. Patient is willing and able to comply with the protocol for the duration of the study including undergoing treatment and scheduled visits and examinations. Male patients must always use a condom during and up to 90 days after the last dose of PTG-300 or rusfertide. Pt here with his . No new complaints or signs/symptoms with new formulation of study medication. Pt states he still had firmness at the injection sites and some redness. Pt continues to have restless legs. Tobin Mattson CNP recommended magnesium supplement to see if would help. Pt will let research team know if he starts it. First Visit May 19, 2023: Patient does continue to meet eligibility to proceed with therapy Subsequent Visit July 14, 2023: Patient does continue to meet parameters to proceed with therapy Concomitant medications reviewed per protocol: yes Changes per patient: No, potential magnesium supplement?? Quality of life questionnaire completed per protocol: N/A Clinical trial labs completed per protocol: Yes Vitals completed per protocol: Yes ECO EKG: Not required this visit Spleen: 0 cm MPN-SAF (MPN-10) TSS: Perameter Score (0 if absent to 10 if worst imaginable) In the past 24 hours: Fatigue 0 In the past 7 days: Early satiety 0 Abdominal pain (and discomfort) 0 Inactivity 0 Concentration 0 Night sweats 0 Pruritus 0 Diffuse Bone pain (not joint pain/arthritis) 0 Fever (>100 F, 10 = daily) 0 Weight loss (or gain) in past 6 months 0 Overall QoL 0 Enrique WILLINGHAM et alJ Clin Oncol 2012;30:[id number]. PAST MEDICAL HISTORY Diagnosis Date Status/Active Issues Elevated prostate specific antigen (PSA) 09/2020 Controlled Hypertension 10/2020 Controlled with medication REMYUNDO (obstructive sleep apnea) ~2018 Uncontrolled/does not use CPAP Polycythemia Vera 09/2020 Uncontrolled Seasonal allergic rhinitis due to pollen *greater than 30 years Controlled with medication DVT, left upper arm after clavicle repair 2001 Lump to right side of neck, *pt reported-lypoma?? 2016 2015 Vitiligo ~2002 Diastasis recti 10/06/2022 PAST SURGICAL HISTORY Procedure Laterality Date CLAVICLE LEFT REPAIR 2001 COLONOSCOPY 2015 DIAGNOSTIC ARTHROSCOPY KNEE Right ~2006 Inguinal hernia repair ~1979 INGUINAL HERNIA MESH REPAIR HX ~1998 REMOVE TONSILS/ADENOIDS,<12 Y/O ~ Social history: Smoking status: nonsmoker ETOH intake: Drinks on average 1-2 times per week, 2 rum and cokes. Denies recreational drug use. 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 HTN 10/2020 Stopped ~10/24/2022 multivitamin with minerals (ONE-A-DAY 50 PLUS ORAL) 1 tab PO daily Health *greater than 8 years aspirin 81 mg cap 81 mg PO daily Heart/PV 2019 Kenalog injection 60 mg IM twice a year Seasonal allergies ~1989 Zithromax 500 mg po first day and 250 mg daily for 4 days Sinus congestion ~03/11/2021 Stopped 03/15/2021 Flonase 2 sprays in each nostril daily Sinus congestion ~03/11/2021 Stopped 03/15/2021 Sulfacetamide eye gtts, 10% 2 gtts in each eye for QID Eye infection ~03/11/2021 Stopped ~03/17/2021 Tylenol 1 gram PO TID PRN Headaches 03/02/2021 Hydrocortiscone cream, OTC Apply to area BID Injection site reaction 03/19/2021 Paxlovid (nirmatrelvir 300 mg and ritonavir 100 mg) PO twice daily for 5 days Covid-19 infection ~12/15/2021 Stopped 12/20/2021 Cefuroxime-Axeil 500 mg PO BID x 7 days URI ~02/10/2022 Stopped ~02/18/2022 Terbinafine HCL Oral 250 mg by mouth once daily Fungal skin infection 07/2022 Efinaconazole 10% cream Apply 1 application to affected area once daily Fungal skin infection 07/2022 Opzelura 1.5% cream Apply twice daily to areas of skin with vitiligo Vitiligo Pt to call when starts medication still not started as of 08/13/2022 Meclizine 12.5 mg 2 tablets by mouth twice daily as needed dizziness 08/13/2022 Stopped 08/14/2022 Doxycycline 100 mg PO BID Pneumonia 12/03/2022 12/03/2022. Pt took only one dose. Albuterol inhaler 90 mcg/actuation 2 puffs inhaled very 6 hours PRN Pneumonia 12/04/2022 Zithromax 500 mg PO day 1 and then 250 mg for 4 days Pneumonia 12/04/2022 12/08/2022 Prednisone 50 mg PO daily x 5 days Pneumonia 12/04/2022 12/08/2022 Magnesium 400 mg PO daily Supplement Not sure if starting Prior PV therapy: Phlebotomies 11/2020 to present Baseline toxicities per CTCAE v. 5: All predate therapy, are chronic conditions and will not be actively followed unless they worsen during the clinical trial. Pruritus Grade 1. Baseline. Start date: 12/2020. Resolve date: ongoing. Drugs to treat: none. Outcome: present intermittently Night sweats Grade 1. Baseline. Start date: 2018. Resolve date: ongoing. Drugs to treat: none. Outcome: present intermittently Bone pain (legs)Grade 1. Baseline. Start date: 12/2020. Resolve date: ongoing. Drugs to treat: none. Outcome: present intermittently Lump to right side of neck (lypoma?) Grade 1. Baseline. Start date: 2015. Resolve date: ongoing. Drugs to treat: none. Outcome: still present Urinary frequency Grade 1. Baseline. Start date: 2020. Resolve date: ongoing. Drugs to treat: none. Outcome: still present Skin hypopigmentation (Vitiligo) Grade 1. Baseline. Start date: ~2002. Resolve date: ongoing. Drugs to treat: opzelura cream. Outcome: still present Toxicities per CTCAE v.5: 07/14/2023 Anemia Grade 1. RELATED to PTG-300. Start date: 03/13/2021. Resolve date: ongoing. Drugs to treat: none. Outcome: still present Injection site reaction (firmness) Grade 1. RELATED to PTG-300. Start date: 04/23/2021. Resolve date: ongoing with each weekly injection. Drugs to treat: hydrocortisone, ice. Outcome: present intermittently with each injection of PTG-300 and resolves 6-7 days after the injection Injection site reaction (erythema, swelling) Grade 1. RELATED to PTG-300. Start date: 04/23/2021. Resolve date: ongoing with each weekly injection. Drugs to treat: hydrocortisone, ice. Outcome: present intermittently with each injection of PTG-300 and resolves 3-4 days after the injection Fatigue Grade 1. UNRELATED to PTG-300. Start date: 06/2021. Resolve date: ongoing. Drugs to treat: none. Outcome: still present Hair loss Grade 1. UNRELATED to PTG-300. Start date: 11/2021. Resolve date: ongoing. Drugs to treat: none. Outcome: still present Restless legs Grade 1. UNRELATED. Start date: ~04/2021. Resolve date: ongoing. Drugs to treat: magnesium?. Outcome: present intermittently Fungal fingernail infection (to bilateral hands) Grade 2. UNRELATED to PTG-300. Start date: 2022. Resolve date: ongoing. Drugs to treat: Efinaconazole 10% cream, Terbinafine. Outcome: still present, improving General disorders and administration site conditions (abd skin tougher/thickened) Grade 1. RELATED to PTG-300. Start date: ~04/2022. Resolve date: ongoing. Drugs to treat: none. Outcome: still present Musculoskeletal and connective tissue disorder (Diastasis recti) Grade 1. UNRELATED to PTG-300. Start date: 09/2022. Resolve date: ongoing. Drugs to treat: none. Outcome: still present Resolved: Hypokalemia Grade 1. UNRELATED to PTG-300. Start date: 03/24/2023. Resolve date: 05/19/2023. Drugs to treat: none. Outcome: resolved Creatinine increased Grade 1. UNRELATED to PTG-300. Start date: 03/24/2023. Resolve date: 05/19/2023. Drugs to treat: none. Outcome: resolved Cold feet bilaterally Grade 1. UNRELATED to PTG-300. Start date:~08/21/2021. Resolve date: 06/16/2023. Drugs to treat: none. Outcome: resolved Injection site reaction (bruising) Grade 1. RELATED to PTG-300. Start date: 03/26/2021. Resolve date: 06/16/2023. Drugs to treat: none. Outcome: resolved Returned: 4 empty cartons of 45 mg doses of PTG-300. The count is accurate. Completed medication diary reviewed. Dispensed: The patient was given a new medication diary and 4 cartons of rusfertide 45 mg each as dispensed by the pharmacy in pt's cooler with ice packs. Pt instructed to return empty cartons and medication diary at next clinic visit. Use of the study medication diary and dosing instructions were reviewed with the patient. Instructed pt to put empty vials and syringes in the sharps container. Pt to dispose of full sharps containers per his [facility]'s trash disposal guidelines. Pt verbalized understanding. 45 mg cartons #s: [id number], [id number], [id number] Dosing: Reviewed mixing and administration directions for the PTG-300. Discussed rotation of injection sites and to not use the same site as the previous week. Pt verbalized understanding and denied any issues with mixing or administering the study medication. Pt to self administered 45 mg PTG-300 SC injection at home today. Patient aware to call the research team for injection site reactions that do not resolve in 24 hours. Pt aware tylenol can be taken for injection site pain and may use ice. OTC Hydrocortisone cream may be used on injection sites or he may take zyrtec or magno 1 hour prior to injection to decrease injection site reaction. Pt verbalized understanding. Discussed storage of study medication in refrigerator and can be room temperature for 12 hours. Patient aware to RTC on 08/11/2023 for Week 12 of PTG 1923. The provider has reviewed and verified the information included within this note, including AE information Patient understands that the nurse or MD must be called prior to taking any new medications as well as stopping any medications. Patient also understands to call nurse or MD should there any new medical issues arise and/or goes to the hospital for any reason. Patient is aware to monitor temperature and to call and/or go to the nearest emergency room for temperatures of 100.4 or greater. Patient knows to call in the interim for any questions or concerns. Patient has contact information for Hannah Lyons RN Research Nurse and Dr. Ventura, along with the 24 hour On-Call number for the On-Call Oncology Fellow ([phone]). Patient understands that this participation is voluntary and may withdrawal at any time during the trial. CAROL Zambrano, RN documented in this encounter [facility] 07-14-2023 Note [facility] 06-16-2023 Note [facility] 06-16-2023 History of Presen t illness Narrative Summary: PTG 1923/24-180 Week 4 visit Title:An Extension Study to Evaluate the Long-term Safety of Rusfertide (PTG-300) in Subjects with Polycythemia Vera Consent expiration 04/13/2024 Screening date: 05/19/2023 Subject#: [id number] PTG 1Z21: Week 1 02/26/2021. EOT 05/19/2023. Rolled over to PTG 192 on 05/19/2023. Week 0: 05/19/2023 PTG-300 45 mg SC weekly Week 4: 06/16/2023 Maintain dosing Patient is here today for Week 4 VISIT for the PTG 1923 Trial, IRB# [id number]. Patient signed Informed Consent on 05/19/2023, prior to any study related procedures. PE completed by Sindy Abreu CNP Patient is a Male with PV. Patient is willing and able to comply with the protocol for the duration of the study including undergoing treatment and scheduled visits and examinations. Male patients must always use a condom during and up to 90 days after the last dose of PTG-300 or rusfertide. Pt here with his . No new complaints or signs/symptoms with new formulation of study medication. Pt states he still had firmness at the injection sites and some redness. First Visit May 19, 2023: Patient does continue to meet eligibility to proceed with therapy Subsequent Visit June 16, 2023: Patient does continue to meet parameters to proceed with therapy Concomitant medications reviewed per protocol: yes Changes per patient: No Quality of life questionnaire completed per protocol: N/A Clinical trial labs completed per protocol: Yes Vitals completed per protocol: Yes ECO EKG: Not required this visit Spleen: 0 cm MPN-SAF (MPN-10) TSS: Perameter Score (0 if absent to 10 if worst imaginable) In the past 24 hours: Fatigue 0 In the past 7 days: Early satiety 0 Abdominal pain (and discomfort) 0 Inactivity 0 Concentration 0 Night sweats 0 Pruritus 0 Diffuse Bone pain (not joint pain/arthritis) 0 Fever (>100 F, 10 = daily) 0 Weight loss (or gain) in past 6 months 0 Overall QoL 0 Enrique WILLINGHAM et alJ Clin Oncol 2012;30:[id number]. PAST MEDICAL HISTORY Diagnosis Date Status/Active Issues Elevated prostate specific antigen (PSA) 09/2020 Controlled Hypertension 10/2020 Controlled with medication REYMUNDO (obstructive sleep apnea) ~2018 Uncontrolled/does not use CPAP Polycythemia Vera 09/2020 Uncontrolled Seasonal allergic rhinitis due to pollen *greater than 30 years Controlled with medication DVT, left upper arm after clavicle repair 2001 Lump to right side of neck, *pt reported-lypoma?? 2016 2015 Vitiligo ~2002 Diastasis recti 10/06/2022 PAST SURGICAL HISTORY Procedure Laterality Date CLAVICLE LEFT REPAIR 2001 COLONOSCOPY 2014 DIAGNOSTIC ARTHROSCOPY KNEE Right ~2006 Inguinal hernia repair ~1979 INGUINAL HERNIA MESH REPAIR HX ~1998 REMOVE TONSILS/ADENOIDS,<12 Y/O ~ Social history: Smoking status: nonsmoker ETOH intake: Drinks on average 1-2 times per week, 2 rum and cokes. Denies recreational drug use. 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 HTN 10/2020 Stopped ~10/24/2022 multivitamin with minerals (ONE-A-DAY 50 PLUS ORAL) 1 tab PO daily Health *greater than 8 years aspirin 81 mg cap 81 mg PO daily Heart/PV 2018 Kenalog injection 60 mg IM twice a year Seasonal allergies ~1989 Zithromax 500 mg po first day and 250 mg daily for 4 days Sinus congestion ~03/11/2021 Stopped 03/15/2021 Flonase 2 sprays in each nostril daily Sinus congestion ~03/11/2021 Stopped 03/15/2021 Sulfacetamide eye gtts, 10% 2 gtts in each eye for QID Eye infection ~03/11/2021 Stopped ~03/17/2021 Tylenol 1 gram PO TID PRN Headaches 03/02/2021 Hydrocortiscone cream, OTC Apply to area BID Injection site reaction 03/19/2021 Paxlovid (nirmatrelvir 300 mg and ritonavir 100 mg) PO twice daily for 5 days Covid-19 infection ~12/15/2021 Stopped 12/20/2021 Cefuroxime-Axeil 500 mg PO BID x 7 days URI ~02/10/2022 Stopped ~02/18/2022 Terbinafine HCL Oral 250 mg by mouth once daily Fungal skin infection 07/2022 Efinaconazole 10% cream Apply 1 application to affected area once daily Fungal skin infection 07/2022 Opzelura 1.5% cream Apply twice daily to areas of skin with vitiligo Vitiligo Pt to call when starts medication still not started as of 08/13/2022 Meclizine 12.5 mg 2 tablets by mouth twice daily as needed dizziness 08/13/2022 Stopped 08/14/2022 Doxycycline 100 mg PO BID Pneumonia 12/03/2022 12/03/2022. Pt took only one dose. Albuterol inhaler 90 mcg/actuation 2 puffs inhaled very 6 hours PRN Pneumonia 12/04/2022 Zithromax 500 mg PO day 1 and then 250 mg for 4 days Pneumonia 12/04/2022 12/08/2022 Prednisone 50 mg PO daily x 5 days Pneumonia 12/04/2022 12/08/2022 Prior PV therapy: Phlebotomies 11/2020 to present Baseline toxicities per CTCAE v. 5: All predate therapy, are chronic conditions and will not be actively followed unless they worsen during the clinical trial. Pruritus Grade 1. Baseline. Start date: 12/2020. Resolve date: ongoing. Drugs to treat: none. Outcome: present intermittently Night sweats Grade 1. Baseline. Start date: 2018. Resolve date: ongoing. Drugs to treat: none. Outcome: present intermittently Bone pain (legs)Grade 1. Baseline. Start date: 12/2020. Resolve date: ongoing. Drugs to treat: none. Outcome: present intermittently Lump to right side of neck (lypoma?) Grade 1. Baseline. Start date: 2015. Resolve date: ongoing. Drugs to treat: none. Outcome: still present Urinary frequency Grade 1. Baseline. Start date: 2020. Resolve date: ongoing. Drugs to treat: none. Outcome: still present Skin hypopigmentation (Vitiligo) Grade 1. Baseline. Start date: ~2002. Resolve date: ongoing. Drugs to treat: opzelura cream. Outcome: still present Toxicities per CTCAE v.5: 06/16/2023 Anemia Grade 1. RELATED to PTG-300. Start date: 03/13/2021. Resolve date: ongoing. Drugs to treat: none. Outcome: still present Injection site reaction (firmness) Grade 1. RELATED to PTG-300. Start date: 04/23/2021. Resolve date: ongoing with each weekly injection. Drugs to treat: hydrocortisone, ice. Outcome: present intermittently with each injection of PTG-300 and resolves 6-7 days after the injection Injection site reaction (erythema, swelling) Grade 1. RELATED to PTG-300. Start date: 04/23/2021. Resolve date: ongoing with each weekly injection. Drugs to treat: hydrocortisone, ice. Outcome: present intermittently with each injection of PTG-300 and resolves 3-4 days after the injection Injection site reaction (bruising) Grade 1. RELATED to PTG-300. Start date: 03/26/2021. Resolve date: 06/16/2023. Drugs to treat: none. Outcome: resolved Fatigue Grade 1. UNRELATED to PTG-300. Start date: 06/2021. Resolve date: ongoing. Drugs to treat: none. Outcome: still present Cold feet bilaterally Grade 1. UNRELATED to PTG-300. Start date:~08/21/2021. Resolve date: 06/16/2023. Drugs to treat: none. Outcome: resolved Hair loss Grade 1. UNRELATED to PTG-300. Start date: 11/2021. Resolve date: ongoing. Drugs to treat: none. Outcome: still present Restless legs Grade 1. UNRELATED. Start date: ~04/2021. Resolve date: ongoing. Drugs to treat: none. Outcome: present intermittently Fungal fingernail infection (to bilateral hands) Grade 2. UNRELATED to PTG-300. Start date: 2022. Resolve date: ongoing. Drugs to treat: Efinaconazole 10% cream, Terbinafine. Outcome: still present, improving General disorders and administration site conditions (abd skin tougher/thickened) Grade 1. RELATED to PTG-300. Start date: ~04/2022. Resolve date: ongoing. Drugs to treat: none. Outcome: still present Musculoskeletal and connective tissue disorder (Diastasis recti) Grade 1. UNRELATED to PTG-300. Start date: 09/2022. Resolve date: ongoing. Drugs to treat: none. Outcome: still present Resolved: Hypokalemia Grade 1. UNRELATED to PTG-300. Start date: 03/24/2023. Resolve date: 05/19/2023. Drugs to treat: none. Outcome: resolved Creatinine increased Grade 1. UNRELATED to PTG-300. Start date: 03/24/2023. Resolve date: 05/19/2023. Drugs to treat: none. Outcome: resolved Returned: 4 empty cartons of 45 mg doses of PTG-300. The count is accurate. Completed medication diary reviewed. Dispensed: The patient was given 4 cartons of rusfertide 45 mg each as dispensed by the pharmacy in pt's cooler with ice packs. Pt instructed to return empty cartons and medication diary at next clinic visit. Use of the study medication diary and dosing instructions were reviewed with the patient. Instructed pt to put empty vials and syringes in the sharps container. Pt is to dispose of full sharps containers per [facility]'s trash disposals guidelines. Pt verbalized understanding. 45 mg cartons #s: [id number], [id number], [id number] Dosing: Reviewed mixing and administration directions for the PTG-300. Discussed rotation of injection sites and to not use the same site as the previous week. Pt verbalized understanding and denied any issues with mixing or administering the study medication. Pt to self administered 45 mg PTG-300 SC injection at home today. Patient aware to call the research team for injection site reactions that do not resolve in 24 hours. Pt aware tylenol can be taken for injection site pain and may use ice. OTC Hydrocortisone cream may be used on injection sites or he may take zyrtec or magno 1 hour prior to injection to decrease injection site reaction. Pt verbalized understanding. Discussed storage of study medication in refrigerator and can be room temperature for 12 hours. Patient aware to RTC on 07/14/2023 for Week 8 of PTG 1923. The provider has reviewed and verified the information included within this note, including AE information Patient understands that the nurse or MD must be called prior to taking any new medications as well as stopping any medications. Patient also understands to call nurse or MD should there any new medical issues arise and/or goes to the hospital for any reason. Patient is aware to monitor temperature and to call and/or go to the nearest emergency room for temperatures of 100.4 or greater. Patient knows to call in the interim for any questions or concerns. Patient has contact information for Hannah Lyons RN Research Nurse and Dr. Ventura, along with the 24 hour On-Call number for the On-Call Oncology Fellow ([phone]). Patient understands that this participation is voluntary and may withdrawal at any time during the trial. CAROL Zambrano, RN documented in this encounter [facility] 06-16-2023 History of Presen t illness Narrative Elements have been copied from prior note on 05/19/2023 - The elements have been reviewed and updated where appropriate, and all reflect my current assessment and decision-making from today, 06/16/2023. [facility] Clinical Note Assessment and Plan In summary: Mr. Leos is a 58 year old gentleman with polycythemia vera. Problem List Polycythemia vera He also has a history of erythrocytosis, elevated PSA, HTN, and REYMUNDO (not on CPAP). He did have a left upper arm DVT in 1999 which was provoked by a left clavicle surgery. He had an elevated hemoglobin as far back as August 2013 (but it was normal again in January of 2015). In September of 2020 he had a hemoglobin of 18.8 g/dL. Subsequent erythropoietin testing was 1.1 mIU/mL. Testing of the peripheral blood on 10/16/2020 was negative for BCR-ABL, but positive for JAK2 V617F (VAF 47%). He started treatment with PTG-300 on 02/26/2021 (PTG 1Z21 - phase II study). He had not required phlebotomies throughout the duration of this study. EOT visit was 05/19/2023 as patient elected to continue participation [facility] w/ rusfertide, PTG 1923, which he started that same day. Dosing on PTG 1923 was initiated at 45 mg weekly despite his stable dose of 60 mg weekly on prior PTG 1Z21 study; this was due to reformulation of drug. Today (06/15/2022) is week 4 visit of PTG 1923. He continues on 45 mg weekly dosing and is tolerating it well. No injection reactions. Labs overall stable - No contraindication to continuing investigational Rusfertide today. CT abdomen completed last visit/week 0 showed slightly increased splenomegaly. EKG also performed at that time notable for NSR w/ QTcB 450ms. DERM Started opzelura (topical ruxolitinib) in early 2022, was taking sporadically for vitiligo with noted improvement, particularly to bilateral hands. Also uses topical antifungal for fingernails (efinaconazole). Follows locally w/ dermatology. No areas of concern r/t rusfertide injections. HTN Was advised by PCP in the summer (2022) to stop his amlodipine d/t stable BPs - BP remains well-controlled off of medication. Continue follow-up with PCP. RTC in 4 weeks for week 8 visit per study protocol - currently scheduled for 07/14/2023. Patient aware to contact research team with any questions or concerns. I spent a total of 26 minutes on the date of the service which included preparing to see the patient, [id number] patient care, obtaining and/or reviewing separately obtained history, performing a medically appropriate examination, counseling and educating the patient/family/caregiver, ordering medications, tests, or procedures, communicating with other HCPs (not separately reported), independently interpreting results (not separately reported), and communicating results to the patient/family/caregiver. Signed: Annie Abreu APRN.CHAMFERING MACHINE OPERATOR Visit Details Interval History Mr. Leos presents today for follow up, accompanied by his . He denies any specific complaints or concerns. Denies any issues with reformulated rusfertide - notes that he had some temporary swelling to the injection site for the first couple of doses but has not recurred since - no residual swelling, bruising, or tenderness noted. No new medications since last visit. He remains active and is eating and drinking well. An inventory of his MPN-related symptoms are as follows: MPN-SAF (MPN-10) TSS (06/16/2023): Parameter Score (0 if absent to 10 if worst imaginable) In the past 24 hours: Fatigue 0 In the past 7 days: Early satiety 0 Abdominal pain (and discomfort) 0 Inactivity 0 Concentration 0 Night sweats 0 Pruritus 0 Diffuse Bone pain (not joint pain/arthritis) 0 Fever (>100 F, 10 = daily) 0 Weight loss (or gain) in past 6 months 0 Overall QoL 0 Enrique WILLINGHAM et alJ Clin Oncol 2012;30:[id number]. Review of Systems Reviewed and reported in HPI/Interval history above Adjunct Histories PAST MEDICAL HISTORY Diagnosis Date Elevated prostate specific antigen (PSA) Hypertension REYMUNDO (obstructive sleep apnea) Polycythemia Seasonal allergic rhinitis due to pollen PAST SURGICAL HISTORY Procedure Laterality Date ARTHROSCOPY KNEE DIAGNOSTIC W/WO SYNOVIAL BX SPX Right CLAVICLE LEFT COLONOSCOPY 2014 INGUINAL HERNIA REPAIR HX TONSILLECTOMY & ADENOIDECTOMY <AGE 11 Social History Tobacco Use Smoking status: Never Smokeless tobacco: Never Vaping Use Vaping Use: Never used Substance Use Topics Alcohol use: Yes Drug use: Not Currently Allergies and Medications ALLERGIES Allergen Reactions Bactrim [Sulfametho* Rash efinaconazole 10 % alfa Apply 1 application to affected area once daily. ruxolitinib phosphate (OPZELURA TOPICAL) Apply to affected area. KRILL OIL ORAL Take by mouth twice daily. multivitamin with minerals (ONE-A-DAY 50 PLUS ORAL) Take by mouth once daily. aspirin 81 mg cap Take by mouth once daily. Exam Vital Signs 06/16/23 0853 BP: 136/70 Pulse: 67 Resp: 18 Temp: 36.2 C (97.2 F) TempSrc: Temporal SpO2: 100% Weight: 83.5 kg (184 lb 2.1 oz) Performance Status Karnofsky Scale:100 - Normal, no complaints, no evidence of disease. ECOG/Zubrod Performance Scale: 0- Fully active, able to carry on all pre-disease performance w/o restriction. Examination Physical Examination: General: Well appearing, in NAD, appropriate. HEENT: No scleral icterus, EOMI. MMM. Pulm: CTA bilaterally. No cough or increased WOB. Cardiac: Regular rate and rhythm, no murmurs noted. WWP. Abd: BS+, NT, ND, no masses, no HSM; spleen tip not palpable on exam w/ deep inspiration. Skin: No obvious lesions or rashes, no overt e/o injection rxn - abdomen free of erythema, edema, or bruising. +Vitiglio to fingers/hands stable. +Nail discoloration to fingernails of left index and middle fingers - chronic, stable. Neuro: CN II - XII grossly intact. Normal gait. Objective Data Labs and Imaging Reviewed, please see Epic. documented in this encounter [facility] 06-16-2023 Note [facility] 06-16-2023 Nurse Note Additional intake questions: Has the patient had fever, nausea, vomiting, diarrhea, constipation, fatigue for > 1 week? No Does the patient have a decreased appetite? No Does patient want to see a Service Order Expediter? No (yes to any of above refer patient to schedulers for dietitian appointment) ) Does patient have any new or increased numbness or tingling of extremities? No Is patient interested in fertility information? No Does patient need any prescription refills? No Does patient have an advanced directive in place? No [facility] 06-16-2023 Nurse Note Additional intake questions: Has the patient had fever, nausea, vomiting, diarrhea, constipation, fatigue for > 1 week? No Does the patient have a decreased appetite? No Does patient want to see a Service Order Expediter? No (yes to any of above refer patient to schedulers for dietitian appointment) ) Does patient have any new or increased numbness or tingling of extremities? No Is patient interested in fertility information? No Does patient need any prescription refills? No Does patient have an advanced directive in place? No documented in this encounter [facility] 05-19-2023 Note [facility] 05-19-2023 History of Presen t illness Narrative Summary: PTG 1923/24-180 Pt signed informed consent Title: An Extension Study to Evaluate the Long-term Safety of Rusfertide (PTG-300) in Subjects with Polycythemia Vera Pt is here for Screening of IRB# [id number]. PE completed by Sindy Abreu CNP. ECO. Patient signed consent May 19, 2023, all tests and procedures were done after consent was signed. Patient has no complaints today. Pt to rollover and start this clinical trial today. Current medications, cancer family history and medical history reviewed with patient. Pt will call with any questions or concerns in the interim. Patient states understanding of all instructions provided. documented in this encounter [facility] 05-19-2023 Note [facility] 05-19-2023 History of Presen t illness Narrative Radiology Service Progress Note PATIENT NAME: Anil Leos DATE OF SERVICE: May 19, 2023 TIME: 12:02 PM PATIENT IDENTITY VERIFICATION COMPLETED USING TWO (2) IDENTIFIERS: Name and Date of confirmed by patient verbally and Name and Date of confirmed by identification band. FALL SCREENING: Has the patient had 2 falls in the last year or 1 fall with injury or currently using an Ambulatory Assistive Device (Walker, Cane, Wheelchair, Crutches, etc.)? No PATIENT GENDER DATA: Male PATIENT RELEVANT IMPLANT DATA REVIEWED: Yes PATIENT PRESENTS WITH AN IMPLANTABLE OR ATTACHED TENTER FRAME OPERATOR: No RADIOLOGY DEPARTMENT: CT; Exam(s) Completed: Abdomen PERIPHERAL IV DATA: Not applicable SIGNED BY: RT Les(R) May 19, 2023 12:02 PM documented in this encounter [facility] 05-19-2023 Note [facility] 05-19-2023 History of Presen t illness Narrative Summary: PTG 1923/24-108 Screening/Week 0 visit Title:An Extension Study to Evaluate the Long-term Safety of Rusfertide (PTG-300) in Subjects with Polycythemia Vera Consent expiration 04/13/2024 Screening date: 05/19/2023 Subject#: [id number] Patient is here today for SCREENING/Week 0 VISIT for the PTG 1923 Trial, IRB# [id number]. Patient has signed Informed Consent on 05/19/2023, prior to any study related procedures. Copy given to patient. Patient had labs drawn then met with Sindy Abreu CNP and research nurse. PE completed by Sindy Abreu CNP Patient is a Male with PV. Patient is willing and able to comply with the protocol for the duration of the study including undergoing treatment and scheduled visits and examinations. Female patients of childbearing potential and male patients with partners of childbearing potential agree to use a highly effective form(s) of contraception [such methods include: combined (estrogen and progesterone containing) hormonal contraception, progesterone-only hormonal contraception associated with inhibition of ovulation together with another additional barrier method always containing a spermicide, intrauterine device (IUD); intrauterine system (IUS); bilateral tubal occlusion; vasectomized partner (on the understanding that this is the only one partner during the whole study duration), and sexual abstinence. Oral contraception should always be combined with an additional contraceptive method because of a potential interaction with the study drug. Male patients must always use a condom during and up to 90 days after the last dose of PTG-300 or rusfertide. Height taken at this visit. 174.0 cm. Cancer screening counseling given to follow up with PCP for regular check ups and cancer screenings. Pt sees his patcher regularly. Pt instructed to reduce sun exposure, use sun screen, wear sun protection clothing, don't smoke, limit alcohol consumption and eat a healthy diet. First degree family cancer diagnosis: Mother- Lymphoma Father- Basal cell Sister- Uterine cancer Inclusion criteria: 1. Subject who has completed at least 12 months of dosing with rusfertide and successfully completed the EOT visit of a previous Phase 2 or Phase 3 study of rusfertide. Part 1 Week 1 02/26/2021 2. Subject understands the study procedures, is willing and able to adhere to study requirements and agrees to participate in the study by giving written informed consent. Signed consent on 05/19/2023. Exclusion criteria: 1. Subject who, in the opinion of the lead investigator, should not participate in the study. 2. Subject who discontinue early from a previous rusfertide study for reasons other than enrolling in this study. 3. or lactating females. 4. Women of childbearing potential (WOCBP) who do not agree to use medically acceptable contraception (<1% annual failure rate) during the study and for 30 days after the last dose of study drug (See Appendix 2 for acceptable contraception methods). 5. Men with partners of childbearing potential who do not agree to use medically acceptable contraception (<1% annual failure rate) during the study and for 90 days after the last dose of study drug (See Appendix 2 for acceptable contraception methods). 6. Men who do not agree to use a condom during the study and or 90 days after the last dose of study drug regardless of the partner s childbearing potential. 7. A female subject intends to donate eggs (ova, oocytes) for the purposes of assisted reproduction during the study and for a period of 30 days after receiving the last dose of study drug. 8. A male subject intends to donate sperm for the purpose of reproduction during the study and for a minimum of 90 days after receiving the last dose of study drug. 9. Plan to use investigational treatment other than rusfertide during the course of the study or within 28 days after last rusfertide dose. 10. Subject with hypersensitivity to rusfertide or to any of the excipients. 11. In the lead investigator s opinion the subject has progressive disease that cannot be managed by adjusting concurrent cytoreductive therapy. Patient meets all Criteria for Study Participation: Yes [place] plan has been entered for prior-authorization: N/A First Visit May 19, 2023: Patient does continue to meet eligibility to proceed with therapy Dosing: Pt watched video provided by sponsor on how to prepare rusfertide injection and how to administer the subcutaneous injection. Reviewed paper administration directions with pictures for preparing and giving the rusfertide injection and injection sites. Discussed rotation of injection sites and to not use the same site as the previous week. Pt verbalized understanding. Pt demonstrated back and talked through the proper way to administer a SC injection. Medication left out to reach room temperature 15 minutes. Pt self administered 45 mg rusfertide SC injection into LUQ of abd at 1453. Patient states he feels comfortable administering injections at home. Patient showed competence in administering SC injection in clinic today. Patient has research RN contact information and hem/onc fellow torsion spring coiling machine setter phone number. 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 Patient aware to call the research team for injection site reactions that do not resolve in 24 hours. Pt aware tylenol can be taken for injection site pain and may use ice. OTC Hydrocortisone cream may be used also. Pt verbalized understanding. Predose PK: completed in lab Pt dosed with 45 mg rusfertide: 1453. Dosed with carton # [id number]. 0.5-2 hr post dose PK: 1532. No injection site reaction noted at injection site. Reviewed study drug log, drug emergency card and dosing instructions and were placed in a folder for patient to keep. Filled out administration information for first injection. Discussed storage of study medication in refrigerator and can be room temperature for 12 hours. Patient given alcohol pads, sharps container and cooler. Dispensed: The patient was given 4 cartons of rusfertide 45 mg each as dispensed by the pharmacy. Pt instructed to return empty cartons and medication diary at next clinic visit. Instructed pt to put empty vials and syringes in the sharps container. Pt is to dispose of full sharps containers per [facility]'s trash disposals guidelines. Pt verbalized understanding. 45 mg cartons #s: [id number], [id number], [id number] Patient aware to RTC on 06/16/2023 for Week 4 of PTG 1923. ALEXANDRIA ZambranoN, RN Summary: PTG 1Z21/21-283 EOT visit Title:A Phase 2 Study of the Hepcidin Mimetic PTG-300 in Patients with Phlebotomy-Requiring Polycythemia Vera Consent expiration 05/29/2021 Screening date: 02/12/2021 Screening #: [id number] Part 1 week 1: 02/26/2021 PTG-300 20 mg SC weekly Part 1 week 5: 03/26/2021 PTG-300 increased to 40 mg SC weekly for HCT 42.4% Part 1 week 9: 04/23/2021 PTG -300 increased to 60 mg SC weekly for HCT 43.6%. Part 1 week 13+: 05/21/2021 PTG-300 60 mg SC weekly maintained. Part 2 week 29: 09/10/2021 PTG-300 60 mg SC weekly maintained. Part 2 week 41: 12/03/2021 PTG-300 60 mg SC weekly maintained. Part 3 cycle 1+: 12/03/2021 PTG-300 60 mg SC weekly maintained. EOT: 05/19/2023 Patient is here today for EOT visit for the PTG 1Z21 Trial, IRB# [id number]. PE: completed by Sindy Brennan CNP. Patient is a Male with PV. Patient is willing and able to comply with the protocol for the duration of the study including undergoing treatment and scheduled visits and examinations. Pt here with his . Pt rolling over to the extension study and will get PTG-300 dispensed from under the extension study. Pt signed consent. Derm exam completed by provider. Concomitant medications reviewed per protocol: yes Changes per patient: No Quality of life questionnaire completed per protocol: Yes Clinical trial labs completed per protocol: Yes Vitals completed per protocol: Yes ECO EKG: Screening QTcF 414 ms. Completed by Herber Duncan CRC II at 1104. QTcF [address]: completed. Spleen: 0 cm MPN-SAF (MPN-10) TSS: Perameter Score (0 if absent to 10 if worst imaginable) In the past 24 hours: Fatigue 0 In the past 7 days: Early satiety 0 Abdominal pain (and discomfort) 0 Inactivity 0 Concentration 0 Night sweats 0 Pruritus 0 Diffuse Bone pain (not joint pain/arthritis) 0 Fever (>100 F, 10 = daily) 0 Weight loss (or gain) in past 6 months 0 Overall QoL 0 Enrique WILLINGHAM et alJ Clin Oncol 2012;30:[id number]. PAST MEDICAL HISTORY Diagnosis Date Status/Active Issues Elevated prostate specific antigen (PSA) 09/2020 Controlled Hypertension 10/2020 Controlled with medication REYMUNDO (obstructive sleep apnea) ~2018 Uncontrolled/does not use CPAP Polycythemia Vera 09/2020 Uncontrolled Seasonal allergic rhinitis due to pollen *greater than 30 years Controlled with medication DVT, left upper arm after clavicle repair 2001 Lump to right side of neck, *pt reported-lypoma?? 2016 2016 Vitiligo ~2002 Diastasis recti 10/06/2022 PAST SURGICAL HISTORY Procedure Laterality Date CLAVICLE LEFT REPAIR 2001 COLONOSCOPY 2014 DIAGNOSTIC ARTHROSCOPY KNEE Right ~2006 Inguinal hernia repair ~1979 INGUINAL HERNIA MESH REPAIR HX ~1998 REMOVE TONSILS/ADENOIDS,<12 Y/O ~ Social history: Smoking status: nonsmoker ETOH intake: Drinks on average 1-2 times per week, 2 rum and cokes. Denies recreational drug use. 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 HTN 10/2020 Stopped ~10/24/2022 multivitamin with minerals (ONE-A-DAY 50 PLUS ORAL) 1 tab PO daily Health *greater than 8 years aspirin 81 mg cap 81 mg PO daily Heart/PV 2019 Kenalog injection 60 mg IM twice a year Seasonal allergies ~1989 Zithromax 500 mg po first day and 250 mg daily for 4 days Sinus congestion ~03/11/2021 Stopped 03/15/2021 Flonase 2 sprays in each nostril daily Sinus congestion ~03/11/2021 Stopped 03/15/2021 Sulfacetamide eye gtts, 10% 2 gtts in each eye for QID Eye infection ~03/11/2021 Stopped ~03/17/2021 Tylenol 1 gram PO TID PRN Headaches 03/02/2021 Hydrocortiscone cream, OTC Apply to area BID Injection site reaction 03/19/2021 Paxlovid (nirmatrelvir 300 mg and ritonavir 100 mg) PO twice daily for 5 days Covid-19 infection ~12/15/2021 Stopped 12/20/2021 Cefuroxime-Axeil 500 mg PO BID x 7 days URI ~02/10/2022 Stopped ~02/18/2022 Terbinafine HCL Oral 250 mg by mouth once daily Fungal skin infection 07/2022 Efinaconazole 10% cream Apply 1 application to affected area once daily Fungal skin infection 07/2022 Opzelura 1.5% cream Apply twice daily to areas of skin with vitiligo Vitiligo Pt to call when starts medication still not started as of 08/13/2022 Meclizine 12.5 mg 2 tablets by mouth twice daily as needed dizziness 08/13/2022 Stopped 08/14/2022 Doxycycline 100 mg PO BID Pneumonia 12/03/2022 12/03/2022. Pt took only one dose. Albuterol inhaler 90 mcg/actuation 2 puffs inhaled very 6 hours PRN Pneumonia 12/04/2022 Zithromax 500 mg PO day 1 and then 250 mg for 4 days Pneumonia 12/04/2022 12/08/2022 Prednisone 50 mg PO daily x 5 days Pneumonia 12/04/2022 12/08/2022 Prior PV therapy: Phlebotomies 11/2020 to present Baseline toxicities per CTCAE v. 5: All predate therapy, are chronic conditions and will not be actively followed unless they worsen during the clinical trial. Pruritus Grade 1. Baseline. Start date: 12/2020. Resolve date: ongoing. Drugs to treat: none. Outcome: present intermittently Night sweats Grade 1. Baseline. Start date: 2018. Resolve date: ongoing. Drugs to treat: none. Outcome: present intermittently Bone pain (legs)Grade 1. Baseline. Start date: 12/2020. Resolve date: ongoing. Drugs to treat: none. Outcome: present intermittently Lump to right side of neck (lypoma?) Grade 1. Baseline. Start date: 2015. Resolve date: ongoing. Drugs to treat: none. Outcome: still present Urinary frequency Grade 1. Baseline. Start date: 2020. Resolve date: ongoing. Drugs to treat: none. Outcome: still present Skin hypopigmentation (Vitiligo) Grade 1. Baseline. Start date: ~2002. Resolve date: ongoing. Drugs to treat: opzelura cream. Outcome: still present Toxicities per CTCAE v.5: 05/19/2023 Anemia Grade 1. RELATED to PTG-300. Start date: 03/13/2021. Resolve date: ongoing. Drugs to treat: none. Outcome: still present Injection site reaction (firmness) Grade 1. RELATED to PTG-300. Start date: 04/23/2021. Resolve date: ongoing with each weekly injection. Drugs to treat: hydrocortisone, ice. Outcome: present intermittently with each injection of PTG-300 and resolves 6-7 days after the injection Injection site reaction (erythema, swelling) Grade 1. RELATED to PTG-300. Start date: 04/23/2021. Resolve date: ongoing with each weekly injection. Drugs to treat: hydrocortisone, ice. Outcome: present intermittently with each injection of PTG-300 and resolves 3-4 days after the injection Injection site reaction (bruising) Grade 1. RELATED to PTG-300. Start date: 03/26/2021. Resolve date: ongoing. Drugs to treat: none. Outcome: present intermittently at injection sites Fatigue Grade 1. UNRELATED to PTG-300. Start date: 06/2021. Resolve date: ongoing. Drugs to treat: none. Outcome: still present Cold feet bilaterally Grade 1. UNRELATED to PTG-300. Start date:~08/21/2021. Resolve date: ongoing. Drugs to treat: none. Outcome: present intermittently Hair loss Grade 1. UNRELATED to PTG-300. Start date: 11/2021. Resolve date: ongoing. Drugs to treat: none. Outcome: still present Restless legs Grade 1. UNRELATED. Start date: ~04/2021. Resolve date: ongoing. Drugs to treat: none. Outcome: present intermittently Fungal fingernail infection (to bilateral hands) Grade 2. UNRELATED to PTG-300. Start date: 2022. Resolve date: ongoing. Drugs to treat: Efinaconazole 10% cream, Terbinafine. Outcome: still present, improving General disorders and administration site conditions (abd skin tougher/thickened) Grade 1. RELATED to PTG-300. Start date: ~04/2022. Resolve date: ongoing. Drugs to treat: none. Outcome: still present Musculoskeletal and connective tissue disorder (Diastasis recti) Grade 1. UNRELATED to PTG-300. Start date: 09/2022. Resolve date: ongoing. Drugs to treat: none. Outcome: still present Hypokalemia Grade 1. UNRELATED to PTG-300. Start date: 03/24/2023. Resolve date: 05/19/2023. Drugs to treat: none. Outcome: resolved Creatinine increased Grade 1. UNRELATED to PTG-300. Start date: 03/24/2023. Resolve date: 05/19/2023. Drugs to treat: none. Outcome: resolved Resolved: Headaches Grade 2. POSSIBLY RELATED. Start date: 03/02/2021. Resolve date: 03/24/2021. Drugs to treat: flonase, zithromax, tylenol. Outcome: resolved Sinus congestion Grade 2. UNRELATED. Start date: 03/06/2021. Resolve date: 03/24/2021. Drugs to treat: flonase, zithromax, tylenol. Outcome: resolved Injection site reaction (erythema, itching, swelling, firmness) Grade 1. RELATED. Start date: 03/05/2021. Resolve date: 03/09/2021. Drugs to treat: none. Outcome: resolved Injection site reaction (erythema, itching, swelling, firmness) Grade 1. RELATED. Start date: 03/12/2021. Resolve date: 03/17/2021. Drugs to treat: none. Outcome: resolved Injection site reaction (erythema, itching, swelling, firmness) Grade 1. RELATED. Start date: 03/19/2021. Resolve date: 03/21/2021. Drugs to treat: ice, hydrocortisone cream. Outcome: resolved Eye infection Grade 2. UNRELATED. Start date: ~03/11/2021. Resolve date: ~03/17/2021. Drugs to treat: sulfacetamide tts. Outcome: resolved Injection site reaction (erythema, itching, swelling, bruising, firmness) Grade 1. RELATED. Start date: 03/26/2021. Resolve date: 04/02/2021. Drugs to treat: ice. Outcome: resolved Injection site reaction (erythema, itching, swelling, firmness) Grade 1. RELATED. Start date: 04/02/2021. Resolve date: 04/09/2021. Drugs to treat: ice.. Outcome: resolved Injection site reaction (erythema, itching, swelling, firmness) Grade 1. RELATED. Start date: 04/09/2021. Resolve date: 04/16/2021. Drugs to treat: ice. Outcome: resolved Injection site reaction (erythema, itching, swelling, firmness) Grade 1. RELATED. Start date: 04/16/2021. Resolve date: 04/23/2021. Drugs to treat: ice Outcome:resolved Ankle swelling Grade 1. UNRELATED. Start date: 04/09/2021. Resolve date: 04/11/2021. Drugs to treat: none. Outcome: resolved Red spots to bilateral axilla (folliculitis?) Grade 1. UNRELATED to PTG-300. Start date: 10/2021. Resolve date: 02/2022. Drugs to treat: none. Outcome: resolved Lung infection (COVID-19 infection) Grade 2. UNRELATED. Start date: ~12/15/2021. Resolve date: 12/22/2021. Drugs to treat: paxlovid. Outcome: resolved Upper respiratory infection Grade 2. UNRELATED. Start date: ~02/10/2022. Resolve date: 04/22/2022. Drugs to treat: Cefuroxime-axeil. Outcome: resolved Abrasion to back Grade 1. UNRELATED. Start date: ~04/18/2022. Resolve date: 06/17/2022. Drugs to treat: none. Outcome: resolved Dizziness Grade 1. UNRELATED. Start date: ~07/2022. Resolve date: 10/07/2022. Drugs to treat: meclizine. Outcome: resolved Hypoglycemia Grade 1. UNRELATED to PTG-300. Start date:12/31/2021. Resolve date: 12/02/2022. Drugs to treat: none. Outcome: resolved Muscle cramp (leg cramps) Grade 1. UNRELATED to PTG-300. Start date: 12/2021. Resolve date: 12/02/2022. Drugs to treat: none. Outcome: resolved Lung infection, pneumonia Grade 2. UNRELATED to PTG-300. Start date: 12/03/2022. Resolve date: 12/09/2022. Drugs to treat: albuterol, prednisone, zithromax, doxycycline. Outcome: resolved Collected and reviewed completed study drug log. Returned: 8 empty cartons of 40 mg dose of PTG-300 and 8 empty cartons of 20 mg dose of PTG-300. The count is accurate. Dispensed: No study drug dispensed under this study protocol. The provider has reviewed and verified the information included within this note, including AE information Patient understands that the nurse or MD must be called prior to taking any new medications as well as stopping any medications. Patient also understands to call nurse or MD should there any new medical issues arise and/or goes to the hospital for any reason. Patient is aware to monitor temperature and to call and/or go to the nearest emergency room for temperatures of 100.4 or greater. Patient knows to call in the interim for any questions or concerns. Patient has contact information for Hannah Lyons RN Research Nurse and Dr. Ventura, along with the 24 hour On-Call number for the On-Call Oncology Fellow ([phone]). Patient understands that this participation is voluntary and may withdrawal at any time during the trial. CAROL Zambrano, RN documented in this encounter [facility] 05-19-2023 Note [facility] 05-19-2023 Nurse Note Additional intake questions: Has the patient had fever, nausea, vomiting, diarrhea, constipation, fatigue for > 1 week? No Does the patient have a decreased appetite? No Does patient want to see a Service Order Expediter? No (yes to any of above refer patient to schedulers for dietitian appointment) ) Does patient have any new or increased numbness or tingling of extremities? No Is patient interested in fertility information? No Does patient need any prescription refills? No Does patient have an advanced directive in place? No, Patient referred to [facility] Electronically Signed By: Sidney Churchill LPN documented in this encounter [facility] 05-19-2023 Note [facility] 05-19-2023 History of Presen t illness Narrative CRC Documentation IRB#: [id number], [facility], Study Title: A Phase 2 Study of the Hepcidin Mimetic PTG-300 in Patients with Phlebotomy-Requiring Polycythemia Vera Informed Consent signed on 02/12/2021, prior to any study related procedures being performed that are not SOC. Pt Study #: 1525-03 C1D1: 02/26/2021 Patient presents for Cycle: EOT The following research tasks have been completed per protocol: Quality of life questionnaire: Yes @ May 19, 2023 10:52 AM EKGs (Single QTcF 432, ): Yes @May 19, 2023 11:04 AM Rollover visit for IRB#: [id number], [facility], Study Title: An Extension Study to Evaluate the Long-term Safety of Rusfertide (PTG-300) in Subjects with Polycythemia Vera Informed Consent signed on 05/19/2023, prior to any study related procedures being performed that are not SOC. Pt Study #: [id number] C1D1: 05/19/2023 Patient presents for Cycle: Enrollment Week: 0 The following research tasks have been completed per protocol: Quality of life questionnaire: Yes (see above) EKGs : Yes (see above) Given to ALEXANDRO London for review. Flavio Duncan, Research Coordinator documented in this encounter [facility] 05-19-2023 History of Presen t illness Narrative Elements copied from note dated 03/24/2023 have been reviewed and updated where appropriate, and all reflect current assessment and medical decision making during today's encounter, 05/19/2023. [facility] Clinical Note Assessment and Plan In summary: Mr. Leos is a 58 year old gentleman with polycythemia vera. Problem List Polycythemia vera He also has a history of erythrocytosis, elevated PSA, HTN, and REYMUNDO (not on CPAP). He did have a left upper arm DVT in 1999 which was provoked by a left clavicle surgery. He had an elevated hemoglobin as far back as August 2013 (but it was normal again in January of 2015). In September of 2020 he had a hemoglobin of 18.8 g/dL. Subsequent erythropoietin testing was 1.1 mIU/mL. Testing of the peripheral blood on 10/16/2020 was negative for BCR-ABL, but positive for JAK2 V617F (VAF 47%). He started treatment with PTG-300 on 02/26/2021 (phae II study). Since starting he has not required phlebotomies. Continues to tolerate therapy well. No injection reactions. He is EOT visit today of PTG 1Z21 but per rollover study is week 0 visit today of PTG 1923 as he signed consent earlier this morning. Labs reviewed and notable improved platelet count of 925k today, down from 1,076k 8 weeks ago. Hct 38.5 today. No missed doses. Was on 60 mg investigational PTG-300 weekly per PTG 1Z21 but d/t Rusferide reformulation w/ PTG 192, will likely start with 45 mg weekly dosing per PTG 1923. No contraindication to continuing investigational Rusfertide today. CT abdomen to be completed this afternoon. EKG today notable for NSR w/ QTcB 450ms. DERM Started opzelura (topical ruxolitinib) in early 2022, was taking sporadically for vitiligo with noted improvement, particularly to bilateral hands. Hadn't used for at least several months in late 2022 due to running out and not yet being able to see prescribing provider. Just recent restarted medication. Continues to take oral and topical antifungals for fingernails (terbinafine and efinaconazole, respectively), also seeing improvement here. Hadn't taken these medications either for ~ 3 months as well for same reason as above. S/p local derm visit on 09/22/22 w/ no reported findings of concern on skin exam. Continue close follow-up with dermatology. Dizziness Resolved per patient. Took meclizine once; no recurrent episodes since summer 2022. GI/MSK Noted to have diastasis recti per recent PCP visit - has been refraining from strenuous abdominal exercises/movement with noted improvement. Has also been advised that he may have a hernia. Continue close follow-up with PCP. HTN Was advised by PCP in the summer (2022) to stop his amlodipine d/t stable BPs - BP remains well-controlled off of medication. Continue follow-up with PCP. RTC in 4 weeks per study protocol. Patient aware to contact research team with any questions or concerns. I spent a total of 29 minutes on the date of the service which included preparing to see the patient, [id number] patient care, obtaining and/or reviewing separately obtained history, performing a medically appropriate examination, counseling and educating the patient/family/caregiver, ordering medications, tests, or procedures, communicating with other HCPs (not separately reported), independently interpreting results (not separately reported), and communicating results to the patient/family/caregiver. Signed: Annie Abreu APRN.CHAMFERING MACHINE OPERATOR Visit Details Interval History Mr. Leos presents today for follow up, accompanied by his . He denies any specific complaints or concerns. Denies any reactions with his PTG injections or missed doses. No recent illness or new medications since last visit. He remains active. Appetite good - eating and drinking well. An inventory of his MPN-related symptoms are as follows: MPN-SAF (MPN-10) TSS (05/19/2023): Parameter Score (0 if absent to 10 if worst imaginable) In the past 24 hours: Fatigue 0 In the past 7 days: Early satiety 0 Abdominal pain (and discomfort) 0 Inactivity 0 Concentration 0 Night sweats 0 Pruritus 0 Diffuse Bone pain (not joint pain/arthritis) 0 Fever (>100 F, 10 = daily) 0 Weight loss (or gain) in past 6 months 0 Overall QoL 0 Enrique WILLINGHAM et alJ Clin Oncol 2012;30:[id number]. Review of Systems Reviewed and reported in HPI/Interval history above Adjunct Histories PAST MEDICAL HISTORY Diagnosis Date Elevated prostate specific antigen (PSA) Hypertension REYMUNDO (obstructive sleep apnea) Polycythemia Seasonal allergic rhinitis due to pollen PAST SURGICAL HISTORY Procedure Laterality Date ARTHROSCOPY KNEE DIAGNOSTIC W/WO SYNOVIAL BX SPX Right CLAVICLE LEFT COLONOSCOPY 2014 INGUINAL HERNIA REPAIR HX TONSILLECTOMY & ADENOIDECTOMY <AGE 11 Social History Tobacco Use Smoking status: Never Smokeless tobacco: Never Vaping Use Vaping Use: Never used Substance Use Topics Alcohol use: Yes Drug use: Not Currently Allergies and Medications ALLERGIES Allergen Reactions Bactrim [Sulfametho* Rash efinaconazole 10 % alfa Apply 1 application to affected area once daily. ruxolitinib phosphate (OPZELURA TOPICAL) Apply to affected area. KRILL OIL ORAL Take by mouth twice daily. multivitamin with minerals (ONE-A-DAY 50 PLUS ORAL) Take by mouth once daily. aspirin 81 mg cap Take by mouth once daily. Exam Vital Signs 05/19/23 1017 BP: 125/66 Pulse: 74 Resp: 18 Temp: 36.5 C (97.7 F) TempSrc: Temporal SpO2: 99% Weight: 83.8 kg (184 lb 11.9 oz) Performance Status Karnofsky Scale:100 - Normal, no complaints, no evidence of disease. ECOG/Zubrod Performance Scale: 0- Fully active, able to carry on all pre-disease performance w/o restriction. Examination Physical Examination: General: Well appearing, in NAD, appropriate. HEENT: No scleral icterus, EOMI. MMM. Pulm: CTA bilaterally. No cough. Cardiac: Regular rate and rhythm, no murmurs noted Abd: BS+, NT, ND, no masses, no HSM; spleen tip not palpable on exam w/ deep inspiration. Skin: No obvious lesions or rashes, no overt e/o injection rxn. +Vitiglio to fingers/hands stable. +Nail discoloration to fingernails on L hand noted but overall stable. Neuro: CN II - XII grossly intact. Normal gait. Objective Data Labs and Imaging Reviewed, please see Epic. documented in this encounter [facility] 05-19-2023 Note [facility] 05-18-2023 Miscellaneous Notes 1st time treatment report. Patient is active with [employer], LOC 80%, $1500 deductible has $1456.87 remaining, and $5500 OOP has $5259.01 remaining. Did not run estimate- pt is active in clinical trial. Called the patient to discuss navigator services and LLS, left a voicemail to return call. Emailed pt contact info and FN hot card. DX: [id number] Polycythemia documented in this encounter [facility] 05-17-2023 Miscellaneous Notes Summary: PTG 1922/24-180 consent presentation Informed Consent Presentation IRB# [id number] Title: An Extension Study to Evaluate the Long-term Safety of Rusfertide (PTG-300) in Subjects with Polycythemia Vera Consent expiration date 04/13/2024 Spoke with patient at the request of Dr. Ventura. Treatment plan, including all testing, potential risks/benefits, side effects and management, treatment alternatives, and follow-up explained. Roles of the clinical trial personnel to be involved and the financial responsibilities regarding procedures and medications were discussed. Discussed the importance of effective contraception during and following completion of active therapy for 90 days. Initial questions were answered and a copy of the informed consent was given to patient with the instructions to read it and call with any additional questions. Contact information for the research nurse was given to the patient. The patient verbalized appropriate understanding of all the aforementioned information presented. Time of Presentation: 1530 Hannah Lyons RN Spoke with pt over the phone. Pt aware of the plan to roll him over to PTG 1923 on his next visit on 05/19/2023. Discussed changes in dosing, appointment frequency and signing consent prior to getting lab work completed. Pt verbalized understanding. Verified pt's email as [email or web address] and that he needs to read the consent prior to signing on , 05/19/2023. Pt has research RN's contact info in order to answer any questions he may have. documented in this encounter [facility] 05-13-2023 Note [facility] 03-24-2023 Note HNO ID: [id number] Author: HANNAH LYONS RN Service: ? Author Type: Registered Nurse Type: Progress Notes Filed: 03/24/2023 15:18 Note Text: Late entry for 1240: Pt denies any recent bleeding episodes or increase in bruising. [facility] 03-24-2023 History of Presen t illness Narrative Late entry for 1240: Pt denies any recent bleeding episodes or increase in bruising. Summary: PTG 1Z21/21-283 Part 3 Cycle 16 day 1 visit Title:A Phase 2 Study of the Hepcidin Mimetic PTG-300 in Patients with Phlebotomy-Requiring Polycythemia Vera Consent expiration 05/29/2021 Screening date: 02/12/2021 Screening #: [id number] Part 1 week 1: 02/26/2021 PTG-300 20 mg SC weekly Part 1 week 5: 03/26/2021 PTG-300 increased to 40 mg SC weekly for HCT 42.4% Part 1 week 9: 04/23/2021 PTG -300 increased to 60 mg SC weekly for HCT 43.6%. Part 1 week 13+: 05/21/2021 PTG-300 60 mg SC weekly maintained. Part 2 week 29: 09/10/2021 PTG-300 60 mg SC weekly maintained. Part 2 week 41: 12/03/2021 PTG-300 60 mg SC weekly maintained. Part 3 cycle 1+: 12/03/2021 PTG-300 60 mg SC weekly maintained. Patient is here today for Part 3 cycle 16 day 1 visit for the PTG 1Z21 Trial, IRB# [id number]. PE: completed by Sindy Brennan CNP. Patient is a Male with PV. Patient is willing and able to comply with the protocol for the duration of the study including undergoing treatment and scheduled visits and examinations. Pt here with his . No phlebotomies needed since last visit. Pt denies headaches. Pt c/o feet being cold in the evenings intermittently. Pt states he covers his feet with a blanket and the cold resolves. states his feet are actually cold to the touch when pt c/o them being cold but no swelling, color changes, pain or numbness are noted. Pt denies any injection site reactions for the past 8 weeks. Denies any symptoms of pneumonia. Dr. Gerds aware of elevated platelets, cold feet, hyperkalemia and elevated creatinine. He feels all are unrelated and OK to proceed with dosing and to maintain 60 mg SC weekly of PTG-300. Patient continues to meet parameters to proceed with therapy. Concomitant medications reviewed per protocol: yes Changes per patient: No Quality of life questionnaire completed per protocol: Yes Clinical trial labs completed per protocol: Yes Vitals completed per protocol: Yes ECO EKG: Screening QTcF 414 ms. Not required this visit CT: Not required this visit Spleen: 0 cm MPN-SAF (MPN-10) TSS: Perameter Score (0 if absent to 10 if worst imaginable) In the past 24 hours: Fatigue 0 In the past 7 days: Early satiety 0 Abdominal pain (and discomfort) 0 Inactivity 0 Concentration 0 Night sweats 0 Pruritus 0 Diffuse Bone pain (not joint pain/arthritis) 0 Fever (>100 F, 10 = daily) 0 Weight loss (or gain) in past 6 months 0 Overall QoL 0 Enrique WILLINGHAM et alJ Clin Oncol 2012;30:[id number]. PAST MEDICAL HISTORY Diagnosis Date Status/Active Issues Elevated prostate specific antigen (PSA) 09/2020 Controlled Hypertension 10/2020 Controlled with medication REYMUNDO (obstructive sleep apnea) ~2018 Uncontrolled/does not use CPAP Polycythemia Vera 09/2020 Uncontrolled Seasonal allergic rhinitis due to pollen *greater than 30 years Controlled with medication DVT, left upper arm after clavicle repair 2001 Lump to right side of neck, *pt reported-lypoma?? 2016 2015 Vitiligo ~2002 Diastasis recti 10/06/2022 PAST SURGICAL HISTORY Procedure Laterality Date CLAVICLE LEFT REPAIR 2001 COLONOSCOPY 2014 DIAGNOSTIC ARTHROSCOPY KNEE Right ~2006 Inguinal hernia repair ~1979 INGUINAL HERNIA MESH REPAIR HX ~1998 REMOVE TONSILS/ADENOIDS,<12 Y/O ~ Social history: Smoking status: nonsmoker ETOH intake: Drinks on average 1-2 times per week, 2 rum and cokes. Denies recreational drug use. 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 HTN 10/2020 Stopped ~10/24/2022 multivitamin with minerals (ONE-A-DAY 50 PLUS ORAL) 1 tab PO daily Health *greater than 8 years aspirin 81 mg cap 81 mg PO daily Heart/PV 2018 Kenalog injection 60 mg IM twice a year Seasonal allergies ~1989 Zithromax 500 mg po first day and 250 mg daily for 4 days Sinus congestion ~03/11/2021 Stopped 03/15/2021 Flonase 2 sprays in each nostril daily Sinus congestion ~03/11/2021 Stopped 03/15/2021 Sulfacetamide eye gtts, 10% 2 gtts in each eye for QID Eye infection ~03/11/2021 Stopped ~03/17/2021 Tylenol 1 gram PO TID PRN Headaches 03/02/2021 Hydrocortiscone cream, OTC Apply to area BID Injection site reaction 03/19/2021 Paxlovid (nirmatrelvir 300 mg and ritonavir 100 mg) PO twice daily for 5 days Covid-19 infection ~12/15/2021 Stopped 12/20/2021 Cefuroxime-Axeil 500 mg PO BID x 7 days URI ~02/10/2022 Stopped ~02/18/2022 Terbinafine HCL Oral 250 mg by mouth once daily Fungal skin infection 07/2022 Efinaconazole 10% cream Apply 1 application to affected area once daily Fungal skin infection 07/2022 Opzelura 1.5% cream Apply twice daily to areas of skin with vitiligo Vitiligo Pt to call when starts medication still not started as of 08/13/2022 Meclizine 12.5 mg 2 tablets by mouth twice daily as needed dizziness 08/13/2022 Stopped 08/14/2022 Doxycycline 100 mg PO BID Pneumonia 12/03/2022 12/03/2022. Pt took only one dose. Albuterol inhaler 90 mcg/actuation 2 puffs inhaled very 6 hours PRN Pneumonia 12/04/2022 Zithromax 500 mg PO day 1 and then 250 mg for 4 days Pneumonia 12/04/2022 12/08/2022 Prednisone 50 mg PO daily x 5 days Pneumonia 12/04/2022 12/08/2022 Prior PV therapy: Phlebotomies 11/2020 to present Baseline toxicities per CTCAE v. 5: All predate therapy, are chronic conditions and will not be actively followed unless they worsen during the clinical trial. Pruritus Grade 1. Baseline. Start date: 12/2020. Resolve date: ongoing. Drugs to treat: none. Outcome: present intermittently Night sweats Grade 1. Baseline. Start date: 2018. Resolve date: ongoing. Drugs to treat: none. Outcome: present intermittently Bone pain (legs)Grade 1. Baseline. Start date: 12/2020. Resolve date: ongoing. Drugs to treat: none. Outcome: present intermittently Lump to right side of neck (lypoma?) Grade 1. Baseline. Start date: 2015. Resolve date: ongoing. Drugs to treat: none. Outcome: still present Urinary frequency Grade 1. Baseline. Start date: 2020. Resolve date: ongoing. Drugs to treat: none. Outcome: still present Skin hypopigmentation (Vitiligo) Grade 1. Baseline. Start date: ~2002. Resolve date: ongoing. Drugs to treat: opzelura cream. Outcome: still present Toxicities per CTCAE v.5: 03/24/2023 Anemia Grade 1. RELATED to PTG-300. Start date: 03/13/2021. Resolve date: ongoing. Drugs to treat: none. Outcome: still present Injection site reaction (firmness) Grade 1. RELATED to PTG-300. Start date: 04/23/2021. Resolve date: ongoing with each weekly injection. Drugs to treat: hydrocortisone, ice. Outcome: present intermittently with each injection of PTG-300 and resolves 6-7 days after the injection Injection site reaction (erythema, swelling) Grade 1. RELATED to PTG-300. Start date: 04/23/2021. Resolve date: ongoing with each weekly injection. Drugs to treat: hydrocortisone, ice. Outcome: present intermittently with each injection of PTG-300 and resolves 3-4 days after the injection Injection site reaction (bruising) Grade 1. RELATED to PTG-300. Start date: 03/26/2021. Resolve date: ongoing. Drugs to treat: none. Outcome: present intermittently at injection sites Fatigue Grade 1. UNRELATED to PTG-300. Start date: 06/2021. Resolve date: ongoing. Drugs to treat: none. Outcome: still present Cold feet bilaterally Grade 1. UNRELATED to PTG-300. Start date:~08/21/2021. Resolve date: ongoing. Drugs to treat: none. Outcome: present intermittently Hair loss Grade 1. UNRELATED to PTG-300. Start date: 11/2021. Resolve date: ongoing. Drugs to treat: none. Outcome: still present Restless legs Grade 1. UNRELATED. Start date: ~04/2021. Resolve date: ongoing. Drugs to treat: none. Outcome: present intermittently Fungal fingernail infection (to bilateral hands) Grade 2. UNRELATED to PTG-300. Start date: 2022. Resolve date: ongoing. Drugs to treat: Efinaconazole 10% cream, Terbinafine. Outcome: still present, improving General disorders and administration site conditions (abd skin tougher/thickened) Grade 1. RELATED to PTG-300. Start date: ~04/2022. Resolve date: ongoing. Drugs to treat: none. Outcome: still present Musculoskeletal and connective tissue disorder (Diastasis recti) Grade 1. UNRELATED to PTG-300. Start date: 09/2022. Resolve date: ongoing. Drugs to treat: none. Outcome: still present Hypokalemia Grade 1. UNRELATED to PTG-300. Start date: 03/24/2023. Resolve date: ongoing. Drugs to treat: none. Outcome: still present Creatinine increased Grade 1. UNRELATED to PTG-300. Start date: 03/24/2023. Resolve date: ongoing. Drugs to treat: none. Outcome: still present Resolved: Headaches Grade 2. POSSIBLY RELATED. Start date: 03/02/2021. Resolve date: 03/24/2021. Drugs to treat: flonase, zithromax, tylenol. Outcome: resolved Sinus congestion Grade 2. UNRELATED. Start date: 03/06/2021. Resolve date: 03/24/2021. Drugs to treat: flonase, zithromax, tylenol. Outcome: resolved Injection site reaction (erythema, itching, swelling, firmness) Grade 1. RELATED. Start date: 03/05/2021. Resolve date: 03/09/2021. Drugs to treat: none. Outcome: resolved Injection site reaction (erythema, itching, swelling, firmness) Grade 1. RELATED. Start date: 03/12/2021. Resolve date: 03/17/2021. Drugs to treat: none. Outcome: resolved Injection site reaction (erythema, itching, swelling, firmness) Grade 1. RELATED. Start date: 03/19/2021. Resolve date: 03/21/2021. Drugs to treat: ice, hydrocortisone cream. Outcome: resolved Eye infection Grade 2. UNRELATED. Start date: ~03/11/2021. Resolve date: ~03/17/2021. Drugs to treat: sulfacetamide tts. Outcome: resolved Injection site reaction (erythema, itching, swelling, bruising, firmness) Grade 1. RELATED. Start date: 03/26/2021. Resolve date: 04/02/2021. Drugs to treat: ice. Outcome: resolved Injection site reaction (erythema, itching, swelling, firmness) Grade 1. RELATED. Start date: 04/02/2021. Resolve date: 04/09/2021. Drugs to treat: ice.. Outcome: resolved Injection site reaction (erythema, itching, swelling, firmness) Grade 1. RELATED. Start date: 04/09/2021. Resolve date: 04/16/2021. Drugs to treat: ice. Outcome: resolved Injection site reaction (erythema, itching, swelling, firmness) Grade 1. RELATED. Start date: 04/16/2021. Resolve date: 04/23/2021. Drugs to treat: ice Outcome:resolved Ankle swelling Grade 1. UNRELATED. Start date: 04/09/2021. Resolve date: 04/11/2021. Drugs to treat: none. Outcome: resolved Red spots to bilateral axilla (folliculitis?) Grade 1. UNRELATED to PTG-300. Start date: 10/2021. Resolve date: 02/2022. Drugs to treat: none. Outcome: resolved Lung infection (COVID-19 infection) Grade 2. UNRELATED. Start date: ~12/15/2021. Resolve date: 12/22/2021. Drugs to treat: paxlovid. Outcome: resolved Upper respiratory infection Grade 2. UNRELATED. Start date: ~02/10/2022. Resolve date: 04/22/2022. Drugs to treat: Cefuroxime-axeil. Outcome: resolved Abrasion to back Grade 1. UNRELATED. Start date: ~04/18/2022. Resolve date: 06/17/2022. Drugs to treat: none. Outcome: resolved Dizziness Grade 1. UNRELATED. Start date: ~07/2022. Resolve date: 10/07/2022. Drugs to treat: meclizine. Outcome: resolved Hypoglycemia Grade 1. UNRELATED to PTG-300. Start date:12/31/2021. Resolve date: 12/02/2022. Drugs to treat: none. Outcome: resolved Muscle cramp (leg cramps) Grade 1. UNRELATED to PTG-300. Start date: 12/2021. Resolve date: 12/02/2022. Drugs to treat: none. Outcome: resolved Lung infection, pneumonia Grade 2. UNRELATED to PTG-300. Start date: 12/03/2022. Resolve date: 12/09/2022. Drugs to treat: albuterol, prednisone, zithromax, doxycycline. Outcome: resolved Dosing: Reviewed administration directions for giving a SC injection and injection sites. Discussed rotation of injection sites and to not use the same site as the previous week. Pt verbalized understanding. Pt to self administered 60 mg PTG-300 SC injection at home today. Pt reports are better days to dose for his schedule and will dose today and then back to . Patient states he feels comfortable administering injections at home. Patient has research RN contact information and hem/onc fellow torsion spring coiling machine setter phone number. 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 Patient aware to call the research team for injection site reactions that do not resolve in 24 hours. Pt aware tylenol can be taken for injection site pain and may use ice. OTC Hydrocortisone cream may be used also. Pt verbalized understanding Reviewed study drug log. Pt given TWO new study logs. Discussed storage of study medication in refrigerator and can be room temperature for 12 hours. Pt is using the soft sided cooler bag and instructed to keep freezer packs in the freezer and bring back bag and ice packs with him to next visit in order to transport medication home. Patient verbalized understanding. Returned: 8 empty cartons of 40 mg dose of PTG-300 and 8 empty cartons of 20 mg dose of PTG-300. The count is accurate. When new supply of drug is given patient instructed to return the diary and the empty cartons at next study visit. Use of the study medication diary and dosing instructions were reviewed with the patient Dispensed: The patient was given 16 syringes of PTG-300. Eight at 40 mg each and eight at 20 mg each as dispensed by the pharmacy. 20 mg Syringe #s: G6522, G6573, G6576, G6591, G6594, G6606, G6607, G6610 40 mg Syringe #s: H6475, H6477, H6481, H7349, H8448, H8584, H8592, H8604 The provider has reviewed and verified the information included within this note, including AE information Patient understands that the nurse or MD must be called prior to taking any new medications as well as stopping any medications. Patient also understands to call nurse or MD should there any new medical issues arise and/or goes to the hospital for any reason. Patient is aware to monitor temperature and to call and/or go to the nearest emergency room for temperatures of 100.4 or greater. Patient knows to call in the interim for any questions or concerns. Patient has contact information for Hannah Lyons RN Research Nurse and Dr. Ventura, along with the 24 hour On-Call number for the On-Call Oncology Fellow ([phone]). Patient understands that this participation is voluntary and may withdrawal at any time during the trial. Patient aware to RTC in 8 weeks for Part 3 Cycle 17 day 1 of PTG 1Z21. CAROL Zambrano, RN documented in this encounter [facility] 03-24-2023 Note [facility] 03-24-2023 History of Presen t illness Narrative Elements copied from my note dated 01/27/2023 have been reviewed and updated where appropriate, and all reflect current assessment and medical decision making during today's encounter, 03/24/2023. [facility] Clinical Note Assessment and Plan In summary: Mr. Leos is a 58 year old gentleman with polycythemia vera. Problem List Polycythemia vera He also has a history of erythrocytosis, elevated PSA, HTN, and REYMUNDO (not on CPAP). He did have a left upper arm DVT in 1999 which was provoked by a left clavicle surgery. He had an elevated hemoglobin as far back as August 2013 (but it was normal again in January of 2015). In September of 2020 he had a hemoglobin of 18.8 g/dL. Subsequent erythropoietin testing was 1.1 mIU/mL. Testing of the peripheral blood on 10/16/2020 was negative for BCR-ABL, but positive for JAK2 V617F (VAF 47%). He started treatment with PTG-300 on 02/26/2021 (phae II study). Since starting he has not required phlebotomies. Continues to tolerate therapy well. No injection reactions. Labs reviewed and notable for platelet increase to 1,076k. Hct 43.6 today. No missed doses. He is Part 3 Cycle 16 day 1 visit today. Continues on 60 mg investigational PTG-300 weekly. No contraindication to continuing per study today. Will plan to recheck CBC at next visit in 8 weeks to reassess platelet count per Dr. Ventura. DERM Started opzelura (topical ruxolitinib) in early 2022, was taking sporadically for vitiligo with noted improvement, particularly to bilateral hands. Hadn't used for at least several months in late 2022 due to running out and not yet being able to see prescribing provider. Just recent restarted medication. Continues to take oral and topical antifungals for fingernails (terbinafine and efinaconazole, respectively), also seeing improvement here. Hadn't taken these medications either for ~ 3 months as well for same reason as above. S/p local derm visit on 09/22/22 w/ no reported findings of concern on skin exam. Continue close follow-up with dermatology. Dizziness Resolved per patient. Took meclizine once; no recurrent episodes since summer 2022. GI/MSK Noted to have diastasis recti per recent PCP visit - has been refraining from strenuous abdominal exercises/movement with noted improvement. Has also been advised that he may have a hernia. Continue close follow-up with PCP. HTN Was advised by PCP in the summer (2022) to stop his amlodipine d/t stable BPs - BP remains well-controlled off of medication. Continue follow-up with PCP. RTC per study protocol. Patient aware to contact research team and/or seek urgent medical attention should he develop any numbness, pain, discoloration, or swelling to feet to r/o circulation issue. I spent a total of 35 minutes on the date of the service which included preparing to see the patient, [id number] patient care, obtaining and/or reviewing separately obtained history, performing a medically appropriate examination, counseling and educating the patient/family/caregiver, ordering medications, tests, or procedures, communicating with other HCPs (not separately reported), independently interpreting results (not separately reported), and communicating results to the patient/family/caregiver. Signed: Annie Abreu APRN.CHAMFERING MACHINE OPERATOR Visit Details Interval History Mr. Leos presents today for follow up, accompanied by his . He denies any specific complaints other than his feet feeling cold. Both he and his share that they are cold to the touch, but he denies any pain, mottling, discoloration, swelling, or difficulty with walking. This was even the case when they were in [place] within the last couple of weeks. He notes that he's fine all day at work but that after he comes home and takes a shower, his feet get cold prompting him to cover them with a blanket. They eventually then warm up. Mr. Leos states that this happens nearly every night and started approximately 1 month ago. He otherwise reports feeling well. Denies any reactions with his PTG injections or missed doses. No new medications but shares that he restarted his Opzelura recently for his hands. No recent infections or illnesses since last visit. He remains active. Appetite good - eating and drinking well. Mr. Leos denies fevers, chills, night sweats, generalized pain, chest pain, palpitations, nausea, vomiting, changes to bowel or bladder habits, swelling, rashes, suspicious lesions, or abnormal bleeding. An inventory of his MPN-related symptoms are as follows: MPN-SAF (MPN-10) TSS: Parameter Score (0 if absent to 10 if worst imaginable) In the past 24 hours: Fatigue 0 In the past 7 days: Early satiety 0 Abdominal pain (and discomfort) 0 Inactivity 0 Concentration 0 Night sweats 0 Pruritus 0 Diffuse Bone pain (not joint pain/arthritis) 0 Fever (>100 F, 10 = daily) 0 Weight loss (or gain) in past 6 months 0 Overall QoL 0 Enrique WILLINGHAM et alJ Clin Oncol 2012;30:[id number]. Review of Systems Reviewed and reported in HPI/Interval history above Adjunct Histories PAST MEDICAL HISTORY Diagnosis Date Elevated prostate specific antigen (PSA) Hypertension REYMUNDO (obstructive sleep apnea) Polycythemia Seasonal allergic rhinitis due to pollen PAST SURGICAL HISTORY Procedure Laterality Date ARTHROSCOPY KNEE DIAGNOSTIC W/WO SYNOVIAL BX SPX Right CLAVICLE LEFT COLONOSCOPY 2014 INGUINAL HERNIA REPAIR HX TONSILLECTOMY & ADENOIDECTOMY <AGE 11 Social History Tobacco Use Smoking status: Never Smokeless tobacco: Never Vaping Use Vaping Use: Never used Substance Use Topics Alcohol use: Yes Drug use: Not Currently Allergies and Medications ALLERGIES Allergen Reactions Bactrim [Sulfametho* Rash efinaconazole 10 % alfa Apply 1 application to affected area once daily. ruxolitinib phosphate (OPZELURA TOPICAL) Apply to affected area. KRILL OIL ORAL Take by mouth twice daily. multivitamin with minerals (ONE-A-DAY 50 PLUS ORAL) Take by mouth once daily. aspirin 81 mg cap Take by mouth once daily. Exam Vital Signs 03/24/23 0949 BP: 142/71 Pulse: 72 Resp: 18 Temp: 36.4 C (97.5 F) TempSrc: Oral SpO2: 100% Weight: 83.9 kg (184 lb 15.5 oz) Performance Status Karnofsky Scale:100 - Normal, no complaints, no evidence of disease. ECOG/Zubrod Performance Scale: 0- Fully active, able to carry on all pre-disease performance w/o restriction. Examination Physical Examination: General: Well appearing, in NAD, appropriate. HEENT: No scleral icterus, EOMI. MMM. Pulm: CTA bilaterally. No cough. Cardiac: Regular rate and rhythm, no murmurs noted Abd: BS+, NT, ND, no masses, no HSM; spleen tip not palpable on exam w/ deep inspiration. Skin: No obvious lesions or rashes, no overt e/o injection rxn. +Vitiglio to fingers/hands stable. +Nail discoloration to fingernails noted but overall stable from prior visits. Neuro: CN II - XII grossly intact. Normal gait. Objective Data Labs and Imaging Reviewed, please see Epic. documented in this encounter [facility] 03-24-2023 Note [facility] 03-24-2023 Nurse Note Additional intake questions: Has the patient had fever, nausea, vomiting, diarrhea, constipation, fatigue for > 1 week? No Does the patient have a decreased appetite? No Does patient want to see a Service Order Expediter? No (yes to any of above refer patient to schedulers for dietitian appointment) ) Does patient have any new or increased numbness or tingling of extremities? No Is patient interested in fertility information? No Does patient need any prescription refills? No Does patient have an advanced directive in place? No, Patient refused referral to Social Work or Resource Center Electronically Signed By: Jeremy Wheeler LPN documented in this encounter [facility] 03-22-2023 Miscellaneous Notes Spoke with pt regarding missed appointment today. Pt apologized and stated he did not realize he had an appointment today, as he is usually here on . Assured patient not a problem. Pt verbalized he will be here , 03/24/23 for labs at 9:00 and provider visit at 10:00. Anaid Mabry RN BSN documented in this encounter [facility] 01-27-2023 Note [facility] 01-27-2023 Note [facility] 12-03-2022 Evaluation note Encounter Date Diagnosis Assessment Notes Nov, Acute bronchitis due to other specified organisms (ICD-10 - J20.8) Instructed to use Robitussin or Mucinex for cough, saline or Flonase NS for congestion, Tylenol for pain and fever. Nov, Polycythemia vera (ICD-10 - D45) Continue w/ trial, f/u [facility] Stable, f/u [facility] CBC yesterday w/ leukocytosis and thrombocythemia [facility] Other 10-20-2023 Evaluation note* Encounter Date Diagnosis Assessment Notes Treatment Notes Treatment Clinical Notes Nov, Splenomegaly (ICD-10 - R16.1) [facility] Other 10-19-2023 History of Present illness Narrative* Maya Sanches RT(R) - 12/02/2022 3:15 PM EDT Radiology Service Progress Note PATIENT NAME: Anil Leos DATE OF SERVICE: December 02, 2022 TIME: 12:20 PM PATIENT IDENTITY VERIFICATION COMPLETED USING TWO (2) IDENTIFIERS: Name and Date of confirmedby patient verbally and Name and Date of confirmed by identification band. FALL SCREENING: Has the patient had 2 falls in the last year or 1 fall with injury or currently using an Ambulatory Assistive Device (Walker, Cane, Wheelchair, Crutches, etc.)? No PATIENT GENDER DATA: Male PATIENT RELEVANT IMPLANT DATA REVIEWED: Not Applicable RADIOLOGY DEPARTMENT: CT; Exam(s) Completed: Abdomen PERIPHERAL IV DATA: Not applicable SIGNED BY: RT Jatin(R) December 02, 2022 12:20 PM [facility] History of Present illness Narrative* Hannah Lyons RN - 12/02/2022 1:42 PM EDTSummary: PTG 1Z21/21-283 Part 3 Cycle 14 day 1 visit Title:A Phase 2 Study of the Hepcidin Mimetic PTG-300 in Patients with Phlebotomy-Requiring Polycythemia Vera Consent expiration 05/29/2021 Screening date: 02/12/2021 Screening #: [id number] Part 1 week 1: 02/26/2021 Part 2 week 29: 09/10/2021 Part 2 week 41: 12/03/2021 Part 3 cycle 1 day 1: 12/03/2021 Patient is here today for Part 3 cycle 14 day 1 visit for the PTG 1Z21 Trial, IRB# [id number]. PE: completed by Sindy Brennan CNP. Patient is a Male with PV. Patient is willing and able to comply with the protocol for the durationof the study including undergoing treatment and scheduled visits and examinations. Pt here with his . No phlebotomies needed since last visit. Pt denies headaches. No complaints at this time. Pt's fingernails are improving with the antifungal cream and oral medication. Pt continues to see skin color develop on his fingers from using the Opzelura cream for his vitiligo. Pt's PCP had him stop the amlodipine in October. Blood pressure elevated for this visit. Blood pressure retaken in left arm, 136/70. Pt reconsented. Patient continues to meet parameters to proceed with therapy. Concomitant medications reviewed per protocol: yes Changes per patient: Yes, see med [employer] Quality of life questionnaire completed per protocol: Yes Clinical trial labs completed per protocol: Yes Vitals completed per protocol: Yes ECO EKG: Screening QTcF 414 ms. Completed by Annia Zhou QTcF [address]: completed Spleen: 0 cm MPN-SAF (MPN-10) TSS: Perameter Score (0 if absent to 10 if worst imaginable) In the past 24 hours: Fatigue 0 In the past 7 days: Early satiety 0 Abdominal pain (and discomfort) 0 Inactivity 0 Concentration 0 Night sweats 0 Pruritus 0 Diffuse Bone pain (not joint pain/arthritis) 0 Fever (>100 F, 10 = daily) 0 Weight loss (or gain) in past 6 months 0 Overall QoL 0 Enrique RM et alJ Clin Oncol 2012;30:[id number]. PAST MEDICAL HISTORY Diagnosis Date Status/Active Issues Elevated prostate specific antigen (PSA) 09/2020 Controlled Hypertension 10/2020 Controlled with medication REYMUNDO (obstructive sleep apnea) ~2018 Uncontrolled/does not use CPAP Polycythemia Vera 09/2020 Uncontrolled Seasonal allergic rhinitis due to pollen *greater than 30 years Controlled with medication DVT, left upper arm after clavicle repair 2001 Lump to right side of neck, *pt reported-lypoma?? 2016 2016 Vitiligo ~2002 Diastasis recti 10/06/2022 PAST SURGICAL HISTORY Procedure Laterality Date CLAVICLE LEFT REPAIR 2001 COLONOSCOPY 2015 DIAGNOSTIC ARTHROSCOPY KNEE Right ~2006 Inguinal hernia repair ~1979 INGUINAL HERNIA MESH REPAIR HX ~1998 REMOVE TONSILS/ADENOIDS,<12 Y/O ~ Social history: Smoking status: nonsmoker ETOH intake: Drinks on average 1-2 times per week, 2 rum and cokes. Denies recreational drug use. 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 HTN 10/2020 Stopped ~10/24/2022 multivitamin with minerals (ONE-A-DAY 50 PLUS ORAL) 1 tab PO daily Health *greater than 8 years aspirin 81 mg cap 81 mg PO daily Heart/PV 2019 Kenalog injection 60 mg IM twice a year Seasonal allergies ~1989 Zithromax 500 mg po first day and 250 mg daily for 4 days Sinus congestion ~03/11/2021 Stopped 03/15/2021 Flonase 2 sprays in each nostril daily Sinus congestion ~03/11/2021 Stopped 03/15/2021 Sulfacetamide eye gtts, 10% 2 gtts in each eye for QID Eye infection ~03/11/2021 Stopped ~03/17/2021 Tylenol 1 gram PO TID PRN Headaches 03/02/2021 Hydrocortiscone cream, OTC Apply to area BID Injection site reaction 03/19/2021 Paxlovid (nirmatrelvir 300 mg and ritonavir 100 mg) PO twice daily for 5 days Covid-19 infection ~12/15/2021 Stopped 12/20/2021 Cefuroxime-Axeil 500 mg PO BID x 7 days URI ~02/10/2022 Stopped ~02/18/2022 Terbinafine HCL Oral 250 mg by mouth once daily Fungal skin infection 07/2022 Efinaconazole 10% cream Apply 1 application to affected area once daily Fungal skin infection 07/2022 Opzelura 1.5% cream Apply twice daily to areas of skin with vitiligo Vitiligo Pt to call when starts medication still not started as of 08/13/2022 Meclizine 12.5 mg 2 tablets by mouth twice daily as needed dizziness 08/13/2022 Stopped 08/14/2022 Prior PV therapy: Phlebotomies 11/2020 to present Baseline toxicities per CTCAE v. 5: All predate therapy, are chronic conditions and will not be actively followed unless they worsen during the clinical trial. Pruritus Grade 1. Baseline. Start date: 12/2020. Resolve date: ongoing. Drugs to treat: none. Outcome: present intermittently Night sweats Grade 1. Baseline. Start date: 2018. Resolve date: ongoing. Drugs to treat: none. Outcome: present intermittently Bone pain (legs)Grade 1. Baseline. Start date: 12/2020. Resolve date: ongoing. Drugs to treat: none. Outcome: present intermittently Lump to right side of neck (lypoma?) Grade 1. Baseline. Start date: 2015. Resolve date: ongoing. Drugs to treat: none. Outcome: still present Urinary frequency Grade 1. Baseline. Start date: 2020. Resolve date: ongoing. Drugs to treat: none.Outcome: still present Skin hypopigmentation (Vitiligo) Grade 1. Baseline. Start date: ~2002. Resolve date: ongoing. Drugsto treat: opzelura cream. Outcome: still present Toxicities per CTCAE v.5: 12/02/2022 Anemia Grade 1. RELATED to PTG-300. Start date: 03/13/2021. Resolve date: ongoing. Drugs to treat: none. Outcome: still present Injection site reaction (firmness) Grade 1. RELATED to PTG-300. Start date: 04/23/2021. Resolve date: ongoing with each weekly injection. Drugs to treat: hydrocortisone, ice. Outcome: present intermittently with each injection of PTG- 300 and resolves 6-7 days after the injection Injection site reaction (erythema, swelling) Grade 1. RELATED to PTG-300. Start date: 04/23/2021. Resolve date: ongoing with each weekly injection. Drugs to treat: hydrocortisone, ice. Outcome: present intermittently with each injection of PTG-300 and resolves 3-4 days after the injection Injection site reaction (bruising) Grade 1. RELATED to PTG-300. Start date: 03/26/2021. Resolve date: ongoing. Drugs to treat: none. Outcome: present intermittently at injection sites Fatigue Grade 1. UNRELATED to PTG-300. Start date: 06/2021. Resolve date: ongoing. Drugs to treat: none. Outcome: still present Cold feet bilaterally Grade 1. UNRELATED to PTG-300. Start date:~08/21/2021. Resolve date: ongoing. Drugs to treat: none. Outcome: present intermittently Hypoglycemia Grade 1. UNRELATED to PTG-300. Start date:12/31/2021. Resolve date: 12/02/2022. Drugs to treat: none. Outcome: resolved Muscle cramp (leg cramps) Grade 1. UNRELATED to PTG-300. Start date: 12/2021. Resolve date: 12/02/2022. Drugs to treat: none. Outcome: resolved Hair loss Grade 1. UNRELATED to PTG-300. Start date: 11/2021. Resolve date: ongoing. Drugs to treat: none. Outcome: still present Restless legs Grade 1. UNRELATED. Start date: ~04/2021. Resolve date: ongoing. Drugs to treat: none.Outcome: present intermittently Fungal fingernail infection (to bilateral hands) Grade 2. UNRELATED. Start date: 2022. Resolve date: ongoing. Drugs to treat: Efinaconazole 10% cream, Terbinafine. Outcome: still present, improving General disorders and administration site conditions (abd skin tougher/thickened) Grade 1. RELATED to PTG-300. Start date: ~04/2022. Resolve date: ongoing. Drugs to treat: none. Outcome: still present Musculoskeletal and connective tissue disorder (Diastasis recti) Grade 1. UNRELATED. Start date: 09/2022. Resolve date: ongoing. Drugs to treat: none. Outcome: still present Resolved: Headaches Grade 2. POSSIBLY RELATED. Start date: 03/02/2021. Resolve date: 03/24/2021. Drugs to treat:flonase, zithromax, tylenol. Outcome: resolved Sinus congestion Grade 2. UNRELATED. Start date: 03/06/2021. Resolve date: 03/24/2021. Drugs to treat:flonase, zithromax, tylenol. Outcome: resolved Injection site reaction (erythema, itching, swelling, firmness) Grade 1. RELATED. Start date: 03/05/2021. Resolve date: 03/09/2021. Drugs to treat: none. Outcome: resolved Injection site reaction (erythema, itching, swelling, firmness) Grade 1. RELATED. Start date: 03/12/2021. Resolve date: 03/17/2021. Drugs to treat: none. Outcome: resolved Injection site reaction (erythema, itching, swelling, firmness) Grade 1. RELATED. Start date: 03/19/2021. Resolve date: 03/21/2021. Drugs to treat: ice, hydrocortisone cream. Outcome: resolved Eye infection Grade 2. UNRELATED. Start date: ~03/11/2021. Resolve date: ~03/17/2021. Drugs to treat: sulfacetamide tts. Outcome: resolved Injection site reaction (erythema, itching, swelling, bruising, firmness) Grade 1. RELATED. Start date: 03/26/2021. Resolve date: 04/02/2021. Drugs to treat: ice. Outcome: resolved Injection site reaction (erythema, itching, swelling, firmness) Grade 1. RELATED. Start date: 04/02/2021. Resolve date: 04/09/2021. Drugs to treat: ice.. Outcome: resolved Injection site reaction (erythema, itching, swelling, firmness) Grade 1. RELATED. Start date: 04/09/2021. Resolve date: 04/16/2021. Drugs to treat: ice. Outcome: resolved Injection site reaction (erythema, itching, swelling, firmness) Grade 1. RELATED. Start date: 04/16/2021. Resolve date: 04/23/2021. Drugs to treat: ice Outcome:resolved Ankle swelling Grade 1. UNRELATED. Start date: 04/09/2021. Resolve date: 04/11/2021. Drugs to treat: none. Outcome: resolved Red spots to bilateral axilla (folliculitis?) Grade 1. UNRELATED to PTG-300. Start date: 10/2021. Resolve date: 02/2022. Drugs to treat: none. Outcome: resolved Lung infection (COVID-19 infection) Grade 2. UNRELATED. Start date: ~12/15/2021. Resolve date: 12/22/2021. Drugs to treat: paxlovid. Outcome: resolved Upper respiratory infection Grade 2. UNRELATED. Start date: ~02/10/2022. Resolve date: 04/22/2022. Drugs to treat: Cefuroxime-axeil. Outcome: resolved Abrasion to back Grade 1. UNRELATED. Start date: ~04/18/2022. Resolve date: 06/17/2022. Drugs to treat:none. Outcome: resolved Dizziness Grade 1. UNRELATED. Start date: ~07/2022. Resolve date: 10/07/2022. Drugs to treat: meclizine. Outcome: resolved Dosing: Reviewed administration directions for giving a SC injection and injection sites. Discussedrotation of injection sites and to not use the same site as the previous week. Pt verbalized understanding. Pt to self administered 60 mg PTG-300 SC injection at home today. Pt reports are better days to dose for his schedule and will dose today and then back to . Patient states he feels comfortable administering injections at home. Patient has research RN contact information and hem/onc fellow torsion spring coiling machine setter phone number. 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 Patient aware to call the research team for injection site reactions that do not resolve in 24 hours. Pt aware tylenol can be taken for injection site pain and may use ice. OTC Hydrocortisone cream may be used also. Pt verbalized understanding Reviewed study drug log. Pt given TWO new study logs. Discussed storage of study medication in refrigerator and can be room temperature for 12 hours. Pt is using the soft sided cooler bag and instructed to keep freezer packs in the freezer and bring back bag and ice packs with him to next visit in order to transport medication home. Patient verbalized understanding. Returned: 8 empty cartons of 40 mg dose of PTG-300 and 8 empty cartons of 20 mg dose of PTG-300. The count is accurate. When new supply of drug is given patient instructed to return the diary and theempty cartons at next study visit. Use of the study medication diary and dosing instructions were reviewed with the patient Dispensed: The patient was given 16 syringes of PTG-300. Eight at 40 mg each and eight at 20 mg each as dispensed by the pharmacy. 20 mg Syringe #s: [id number], G6120, G6182, G6183, G6185, G6189, G6190, G6203 40 mg Syringe #s: [id number], H6947, H7342, H7347, H7850, H7858, H7860, H7921 The provider has reviewed and verified the information included within this note, including AE information Patient understands that the nurse or MD must be called prior to taking any new medications as wellas stopping any medications. Patient also understands to call nurse or MD should there any new medical issues arise and/or goes to the hospital for any reason. Patient is aware to monitor temperatureand to call and/or go to the nearest emergency room for temperatures of 100.4 or greater. Patient knows to call in the interim for any questions or concerns. Patient has contact information for Hannah Lyons RN Research Nurse and Dr. Ventura, along with the 24 hour On-Call number for the On-Call Oncology Fellow ([phone]). Patient understands that this participation is voluntary and may withdrawal at any time during the trial. Patient aware to RTC in 8 weeks for Part 3 Cycle 15 day 1 of PTG 1Z21. CAROL Zambrano, RN documented [facility] History of Present illness Narrative* Hannah Lyons RN - 10/07/2022 12:27 PM EDTSummary: PTG 1Z21/21-283 Part 3 Cycle 12 day 1 visit Title:A Phase 2 Study of the Hepcidin Mimetic PTG-300 in Patients with Phlebotomy-Requiring Polycythemia Vera Consent expiration 05/29/2021 Screening date: 02/12/2021 Screening #: [id number] Part 1 week 1: 02/26/2021 Part 2 week 29: 09/10/2021 Part 2 week 41: 12/03/2021 Part 3 cycle 1 day 1: 12/03/2021 Patient is here today for Part 3 cycle 12 day 1 visit for the PT 1Z21 Trial, IRB# [id number]. PE: completed by Katherine Gonzalez PA-C Patient is a Male with PV. Patient is willing and able to comply with the protocol for the durationof the study including undergoing treatment and scheduled visits and examinations. Pt here with his . No phlebotomies needed since last visit. Pt denies headaches. No complaints at this time. Pt saw his local patcher since his last visit. No new skin cancers or lesions toreport. Pt states the dizziness resolved and he only took one dose of the meclizine. Pt's fingernails are improving with the antifungal cream and oral medication. Pt is starting to see skin color develop on his fingers from using the Opzelura cream for his vitiligo. Pt saw his PCP yesterday for a large bump that appears in his abd when he does sit ups. Pt diagnosed with diastasis recti and was told not to do sit ups. All labs and AEs reviewed by Katherine Gonzalez PA-C. Patient continues to meet parameters to proceed with therapy. Concomitant medications reviewed per protocol: yes Changes per patient: none Quality of life questionnaire completed per protocol: Yes Clinical trial labs completed per protocol: Yes Vitals completed per protocol: Yes ECO EKG: Screening QTcF 414 ms. Not required this visit. CT: Not required this visit Spleen: 0 cm MPN-SAF (MPN-10) TSS: Perameter Score (0 if absent to 10 if worst imaginable) In the past 24 hours: Fatigue 0 In the past 7 days: Early satiety 0 Abdominal pain (and discomfort) 0 Inactivity 0 Concentration 0 Night sweats 0 Pruritus 0 Diffuse Bone pain (not joint pain/arthritis) 0 Fever (>100 F, 10 = daily) 0 Weight loss (or gain) in past 6 months 0 Overall QoL 0 Enrique WILLINGHAM et alJ Clin Oncol 2012;30:[id number]. PAST MEDICAL HISTORY Diagnosis Date Status/Active Issues Elevated prostate specific antigen (PSA) 09/2020 Controlled Hypertension 10/2020 Controlled with medication REYMUNDO (obstructive sleep apnea) ~2018 Uncontrolled/does not use CPAP Polycythemia Vera 09/2020 Uncontrolled Seasonal allergic rhinitis due to pollen *greater than 30 years Controlled with medication DVT, left upper arm after clavicle repair 2001 Lump to right side of neck, *pt reported-lypoma?? 2016 2015 Vitiligo ~2002 Diastasis recti 10/06/2022 PAST SURGICAL HISTORY Procedure Laterality Date CLAVICLE LEFT REPAIR 2001 COLONOSCOPY 2015 DIAGNOSTIC ARTHROSCOPY KNEE Right ~2006 Inguinal hernia repair ~1979 INGUINAL HERNIA MESH REPAIR HX ~1998 REMOVE TONSILS/ADENOIDS,<12 Y/O ~ Social history: Smoking status: nonsmoker ETOH intake: Drinks on average 1-2 times per week, 2 rum and cokes. Denies recreational drug use. 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 HTN 10/2020 multivitamin with minerals (ONE-A-DAY 50 PLUS ORAL) 1 tab PO daily Health *greater than 8 years aspirin 81 mg cap 81 mg PO daily Heart/PV 2018 Kenalog injection 60 mg IM twice a year Seasonal allergies ~1989 Zithromax 500 mg po first day and 250 mg daily for 4 days Sinus congestion ~03/11/2021 Stopped 03/15/2021 Flonase 2 sprays in each nostril daily Sinus congestion ~03/11/2021 Stopped 03/15/2021 Sulfacetamide eye gtts, 10% 2 gtts in each eye for QID Eye infection ~03/11/2021 Stopped ~03/17/2021 Tylenol 1 gram PO TID PRN Headaches 03/02/2021 Hydrocortiscone cream, OTC Apply to area BID Injection site reaction 03/19/2021 Paxlovid (nirmatrelvir 300 mg and ritonavir 100 mg) PO twice daily for 5 days Covid-19 infection ~12/15/2021 Stopped 12/20/2021 Cefuroxime-Axeil 500 mg PO BID x 7 days URI ~02/10/2022 Stopped ~02/18/2022 Terbinafine HCL Oral 250 mg by mouth once daily Fungal skin infection 07/2022 Efinaconazole 10% cream Apply 1 application to affected area once daily Fungal skin infection 07/2022 Opzelura 1.5% cream Apply twice daily to areas of skin with vitiligo Vitiligo Pt to call when starts medication still not started as of 08/13/2022 Meclizine 12.5 mg 2 tablets by mouth twice daily as needed dizziness 08/13/2022 Stopped 08/14/2022 Prior PV therapy: Phlebotomies 11/2020 to present Baseline toxicities per CTCAE v. 5: All predate therapy, are chronic conditions and will not be actively followed unless they worsen during the clinical trial. Pruritus Grade 1. Baseline. Start date: 12/2020. Resolve date: ongoing. Drugs to treat: none. Outcome: present intermittently Night sweats Grade 1. Baseline. Start date: 2018. Resolve date: ongoing. Drugs to treat: none. Outcome: present intermittently Bone pain (legs)Grade 1. Baseline. Start date: 12/2020. Resolve date: ongoing. Drugs to treat: none. Outcome: present intermittently Lump to right side of neck (lypoma?) Grade 1. Baseline. Start date: 2015. Resolve date: ongoing. Drugs to treat: none. Outcome: still present Urinary frequency Grade 1. Baseline. Start date: 2020. Resolve date: ongoing. Drugs to treat: none.Outcome: still present Skin hypopigmentation (Vitiligo) Grade 1. Baseline. Start date: ~2002. Resolve date: ongoing. Drugsto treat: opzelura cream. Outcome: still present Toxicities per CTCAE v.5: 10/07/2022 Anemia Grade 1. RELATED to PTG-300. Start date: 03/13/2021. Resolve date: ongoing. Drugs to treat: none. Outcome: still present Injection site reaction (firmness) Grade 1. RELATED to PTG-300. Start date: 04/23/2021. Resolve date: ongoing with each weekly injection. Drugs to treat: hydrocortisone, ice. Outcome: present intermittently with each injection of PTG- 300 and resolves 6-7 days after the injection Injection site reaction (erythema, swelling) Grade 1. RELATED to PTG-300. Start date: 04/23/2021. Resolve date: ongoing with each weekly injection. Drugs to treat: hydrocortisone, ice. Outcome: present intermittently with each injection of PTG-300 and resolves 3-4 days after the injection Injection site reaction (bruising) Grade 1. RELATED to PTG-300. Start date: 03/26/2021. Resolve date: ongoing. Drugs to treat: none. Outcome: present intermittently at injection sites Fatigue Grade 1. UNRELATED to PTG-300. Start date: 06/2021. Resolve date: ongoing. Drugs to treat: none. Outcome: still present Cold feet bilaterally Grade 1. UNRELATED to PTG-300. Start date:~08/21/2021. Resolve date: ongoing. Drugs to treat: none. Outcome: present intermittently Hypoglycemia Grade 1. UNRELATED to PTG-300. Start date:12/31/2021. Resolve date: ongoing. Drugs to treat: none. Outcome: present intermittently Muscle cramp (leg cramps) Grade 1. UNRELATED to PTG-300. Start date: 12/2021. Resolve date: ongoing. Drugs to treat: none. Outcome: present intermittently Hair loss Grade 1. UNRELATED to PTG-300. Start date: 11/2021. Resolve date: ongoing. Drugs to treat: none. Outcome: still present Restless legs Grade 1. UNRELATED. Start date: ~04/2021. Resolve date: ongoing. Drugs to treat: none.Outcome: present intermittently Fungal fingernail infection (to bilateral hands) Grade 2. UNRELATED. Start date: 2022. Resolve date: ongoing. Drugs to treat: Efinaconazole 10% cream, Terbinafine. Outcome: still present, improving General disorders and administration site conditions (abd skin tougher/thickened) Grade 1. RELATED to PTG-300. Start date: ~04/2022. Resolve date: ongoing. Drugs to treat: none. Outcome: still present Dizziness Grade 1. UNRELATED. Start date: ~07/2022. Resolve date: 10/07/2022. Drugs to treat: meclizine. Outcome: resolved Musculoskeletal and connective tissue disorder (Diastasis recti) Grade 1. UNRELATED. Start date: 09/2022. Resolve date: ongoing. Drugs to treat: none. Outcome: still present Resolved: Headaches Grade 2. POSSIBLY RELATED. Start date: 03/02/2021. Resolve date: 03/24/2021. Drugs to treat:flonase, zithromax, tylenol. Outcome: resolved Sinus congestion Grade 2. UNRELATED. Start date: 03/06/2021. Resolve date: 03/24/2021. Drugs to treat:flonase, zithromax, tylenol. Outcome: resolved Injection site reaction (erythema, itching, swelling, firmness) Grade 1. RELATED. Start date: 03/05/2021. Resolve date: 03/09/2021. Drugs to treat: none. Outcome: resolved Injection site reaction (erythema, itching, swelling, firmness) Grade 1. RELATED. Start date: 03/12/2021. Resolve date: 03/17/2021. Drugs to treat: none. Outcome: resolved Injection site reaction (erythema, itching, swelling, firmness) Grade 1. RELATED. Start date: 03/19/2021. Resolve date: 03/21/2021. Drugs to treat: ice, hydrocortisone cream. Outcome: resolved Eye infection Grade 2. UNRELATED. Start date: ~03/11/2021. Resolve date: ~03/17/2021. Drugs to treat: sulfacetamide tts. Outcome: resolved Injection site reaction (erythema, itching, swelling, bruising, firmness) Grade 1. RELATED. Start date: 03/26/2021. Resolve date: 04/02/2021. Drugs to treat: ice. Outcome: resolved Injection site reaction (erythema, itching, swelling, firmness) Grade 1. RELATED. Start date: 04/02/2021. Resolve date: 04/09/2021. Drugs to treat: ice.. Outcome: resolved Injection site reaction (erythema, itching, swelling, firmness) Grade 1. RELATED. Start date: 04/09/2021. Resolve date: 04/16/2021. Drugs to treat: ice. Outcome: resolved Injection site reaction (erythema, itching, swelling, firmness) Grade 1. RELATED. Start date: 04/16/2021. Resolve date: 04/23/2021. Drugs to treat: ice Outcome:resolved Ankle swelling Grade 1. UNRELATED. Start date: 04/09/2021. Resolve date: 04/11/2021. Drugs to treat: none. Outcome: resolved Red spots to bilateral axilla (folliculitis?) Grade 1. UNRELATED to PTG-300. Start date: 10/2021. Resolve date: 02/2022. Drugs to treat: none. Outcome: resolved Lung infection (COVID-19 infection) Grade 2. UNRELATED. Start date: ~12/15/2021. Resolve date: 12/22/2021. Drugs to treat: paxlovid. Outcome: resolved Upper respiratory infection Grade 2. UNRELATED. Start date: ~02/10/2022. Resolve date: 04/22/2022. Drugs to treat: Cefuroxime-axeil. Outcome: resolved Abrasion to back Grade 1. UNRELATED. Start date: ~04/18/2022. Resolve date: 06/17/2022. Drugs to treat:none. Outcome: resolved Dosing: Reviewed administration directions for giving a SC injection and injection sites. Discussedrotation of injection sites and to not use the same site as the previous week. Pt verbalized understanding. Pt to self administered 60 mg PTG-300 SC injection at home today. Pt reports are better days to dose for his schedule and will dose today and then back to . Patient states he feels comfortable administering injections at home. Patient has research RN contact information and hem/onc fellow torsion spring coiling machine setter phone number. 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 Patient aware to call the research team for injection site reactions that do not resolve in 24 hours. Pt aware tylenol can be taken for injection site pain and may use ice. OTC Hydrocortisone cream may be used also. Pt verbalized understanding Reviewed study drug log. Pt given TWO new study logs. Discussed storage of study medication in refrigerator and can be room temperature for 12 hours. Pt is using the soft sided cooler bag and instructed to keep freezer packs in the freezer and bring back bag and ice packs with him to next visit in order to transport medication home. Patient verbalized understanding. Returned: 8 empty cartons of 40 mg dose of PTG-300 and 8 empty cartons of 20 mg dose of PTG-300. The count is accurate. When new supply of drug is given patient instructed to return the diary and theempty cartons at next study visit. Use of the study medication diary and dosing instructions were reviewed with the patient Dispensed: The patient was given 16 syringes of PTG-300. Eight at 40 mg each and eight at 20 mg each as dispensed by the pharmacy. 20 mg Syringe #s: G6106, G6107, G6108, G6111, G6104, G6105, G6110, G6114 40 mg Syringe #s: H6483, H6948, H7096, H7246, H7094, H7097, H7235, H7344 The provider has reviewed and verified the information included within this note, including AE information Patient understands that the nurse or MD must be called prior to taking any new medications as wellas stopping any medications. Patient also understands to call nurse or MD should there any new medical issues arise and/or goes to the hospital for any reason. Patient is aware to monitor temperatureand to call and/or go to the nearest emergency room for temperatures of 100.4 or greater. Patient knows to call in the interim for any questions or concerns. Patient has contact information for Hannah Lyons RN Research Nurse and Dr. Ventura, along with the 24 hour On-Call number for the On-Call Oncology Fellow ([phone]). Patient understands that this participation is voluntary and may withdrawal at any time during the trial. Patient aware to RTC in 8 weeks for Part 3 Cycle 14 day 1 of PTG 1Z21. CAROL Zambrano, RN documented in this encounterWvumed[facility] History of Present illness Narrative* Sheryl Gonzalez PA-C - 10/07/2022 11:00 AM EDT Elements copied from Annie Abreu's note dated 08/13/22, have been reviewed and updated where appropriate, and all reflect current assessment and medical decision making during today's encounter,October 07, 2022 [facility] Clinical Note Assessment and Plan In summary: Mr. Leos is a 57 year old gentleman with polycythemia vera. Problem List Polycythemia vera He also has a history of erythrocytosis, elevated PSA, HTN, and REYMUNDO (not on CPAP). He did have a left upper arm DVT in 1999 which was provoked by a left clavicle surgery. He had an elevated hemoglobin as far back as August 2013 (but it was normal again in January of 2015). In September of 2020 he had ahemoglobin of 18.8 g/dL. Subsequent erythropoietin testing was 1.1 mIU/mL. Testing of the peripheral blood on 10/16/2020 was negative for BCR-ABL, but positive for JAK2 V617F (VAF 47%). He started treatment with PTG-300 on 02/26/2021 (phae II study). Since starting he has not required phlebotomies. Tolerating therapy well. Labs reviewed and are stable. No dose adjustment necessary per study. No contraindication to continuing per study today. DERM Has started opzelura (topical ruxolitinib), taking sporadically for vitiligo. Seeing improvement. Continues to take oral and topical antifungals for fingernails (terbinafine and efinaconazole, respectively), also seeing improvement here. Local derm visit on 09/22/22. Reports no concerning findings on skin exam. Dizziness Resolved per patient. Took meclizine once; no recurrent episodes since last visit. RTC per study protocol Sheryl Gonzalez PA-C Hematology/Oncology Pager [phone] Visit Details Interval History Mr. Leos presents today for follow up, accompanied by his . Notes he is feeling well. Did see his PCP recently for probable diastasis recti; noticed when exercising, denies pain. Was advised to avoid certain exercises/movements. Tolerating therapy well. Occasional swelling with injections but always resolves. Taking opzelura sporadically for vitiligo. Still taking oral/topical antifungals with improvement in symptoms. May stop amlodipine per PCP as BP have been stable. He is still deciding when to consider this pending an upcoming vacation. Denies infections or illnesses. Denies fevers, chills, night sweats, SOB, CP, N/V/D/C, bleeding, edema, [place], vision changes. An inventory of his MPN-related symptoms are as follows: MPN-SAF (MPN-10) TSS: Parameter Score (0 if absent to 10 if worst imaginable) In the past 24 hours: Fatigue 0 In the past 7 days: Early satiety 0 Abdominal pain (and discomfort) 0 Inactivity 0 Concentration 0 Night sweats 0 Pruritus 0 Diffuse Bone pain (not joint pain/arthritis) 0 Fever (>100 F, 10 = daily) 0 Weight loss (or gain) in past 6 months 0 Overall QoL 0 Enrique WILLINGHAM et alJ Clin Oncol 2012;30:[id number]. Review of Systems Reviewed and reported in HPI Adjunct Histories PAST MEDICAL HISTORY Diagnosis Date Elevated prostate specific antigen (PSA) Hypertension REYMUNDO (obstructive sleep apnea) Polycythemia Seasonal allergic rhinitis due to pollen PAST SURGICAL HISTORY Procedure Laterality Date ARTHROSCOPY KNEE DIAGNOSTIC W/WO SYNOVIAL BX SPX Right CLAVICLE LEFT COLONOSCOPY 2014 INGUINAL HERNIA REPAIR HX TONSILLECTOMY & ADENOIDECTOMY <AGE 11 Social History Tobacco Use Smoking status: Never Smokeless tobacco: Never Vaping Use Vaping Use: Never used Substance Use Topics Alcohol use: Yes Drug use: Not Currently Allergies and Medications ALLERGIES Allergen Reactions Bactrim [Sulfametho* Rash TERBINAFINE HCL ORAL Take 250 mg by mouth once daily. efinaconazole 10 % alfa Apply 1 application to affected area once daily. ruxolitinib phosphate (OPZELURA TOPICAL) Apply to affected area. alcohol swabs Apply 1 Each to affected area one time a week. Oral Medication Containers (SHARPS CONTAINER) misc 1 Container as directed. KRILL OIL ORAL Take by mouth twice daily. amLODIPine (NORVASC) 5 mg tablet Take 5 mg by mouth once daily. multivitamin with minerals (ONE-A-DAY 50 PLUS ORAL) Take by mouth once daily. aspirin 81 mg cap Take by mouth once daily. Exam Vital Signs BP 136/65 Pulse 66 Temp (Src) 97.4 (Temporal) Resp 18 Wt 191 lb 6.4 oz (86.8kg) SpO2 100% Performance Status Karnofsky Scale:100 - Normal, no complaints, no evidence of disease. ECOG/Zubrod Performance Scale: 0- Fully active, able to carry on all pre-disease performance w/o restriction. Examination Physical Examination: General: Well appearing, NAD, appropriate HEENT: no scleral icterus, EOMI. Pulm: CTA bilaterally Cardiac: Regular rate and rhythm, no murmurs noted Abd: BS+, NT, ND, no masses, no HSM; spleen tip not palpable on exam Skin: No obvious lesions or rashes. Neuro: CN II - XII grossly intact Objective Data Labs and Imaging Reviewed, please see Epic. documented in this encounterWvumed[facility]08-24-2023 [facility] Nurse Note* Sidney Churchill LPN - 10/07/2022 10:55 AM EDT Additional intake questions: Has the patient had fever, nausea, vomiting, diarrhea, constipation, fatigue for > 1 week? No Does the patient have a decreased appetite? No Does patient want to see a Service Order Expediter? No (yes to any of above refer patient to schedulers for dietitian appointment) ) Does patient have any new or increased numbness or tingling of extremities? No Is patient interested in fertility information? No Does patient need any prescription refills? No Does patient have an advanced directive in place? No, Patient referred to Resource Center Electronically Signed By: Sidney Churchill LPN documented in this encounterWvumed[facility]08-23-2023 Evaluation note* Encounter Date Diagnosis Assessment Notes Treatment Notes Treatment Clinical Notes Sep, Wellness examination (ICD-10 - Z00.00) Healthy diet and exercise. Reviewed age-appropriate preventive testing recommended. Sep, Primary hypertension (ICD-10 - I10) This patient is instructed to consume a healthy, low-fat, low-salt diet. They are also encouraged to continue exercise to achieve/maintain a normal BMI. Sep, REYMUNDO (obstructive sleep apnea) (ICD-10 - G47.33) This patient is aware of the benefits associated with REYMUNDO: With continued use, the patient reduces the risk for NM, CVA, HTN, cardiac dysrhythmias and sudden cardiac deaths.The patient is also aware of the association between REYMUNDO and morning headaches, daytime somnolence, fatigue and obesity, which also has been improved with continued use.The patient is compliant with treatment, wearing the equipment every night for greater than 4 hours.The patient is instructed to continue use of the CPAP for REYMUNDO treatment. Sep, Polycythemia vera (ICD-10 - D45) Continue w/ trial, f[facility]u [facility] f[facility]u [facility] Entered in a drug study. - receives 2 injections SC weekly Hasn't required phlebotomy in over a year Sep, Overweight (ICD-10 - E66.3) This patient has been instructed on a low-fat, high-fiber diet. They are instructed to reduce calories, portion sizes and snacks. It is recommended that they exercise for 30 minutes, 3-5 times weekly. Sep, Diastasis recti (ICD-10 - M62.08) Reassured, avoid sit ups Sep, Screening PSA (prostate specific antigen) (ICD-10 - Z12.5) Yearly AMADO and PSA [place] Other 07-28-2023 Miscellaneous Notes* Telephone Encounter - Hannah Lyons RN - 09/10/2022 10:44 AM EDT Noted that pt did not get local CBC/D yesterday. Called pt and he is going to get blood drawn today. documented in this encounterWvumed[facility]06-30-2023 Note[facility]06-[facility]23 History of Present illness Narrative* Kyleigh Rust RN - 08/13/2022 2:31 PM EDT Title:A Phase 2 Study of the Hepcidin Mimetic PTG-300 in Patients with Phlebotomy-Requiring Polycythemia Vera Consent expiration 05/29/2021 Screening date: 02/12/2021 Screening #: [id number] Part 1 week 1: 02/26/2021 Part 2 week 29: 09/10/2021 Part 2 week 41: 12/03/2021 Part 3 cycle 1 day 1: 12/03/2021 Patient is here today for Part 3 cycle 10 day 1 visit for the PTG 1Z21 Trial, IRB# [id number]. PE: completed by JACKELYN Truong CNP Patient is a Male with PV. Patient is willing and able to comply with the protocol for the durationof the study including undergoing treatment and scheduled visits and examinations. Pt here with his . No phlebotomies needed since last visit. Pt denies headaches. Pt reports having intermittent dizziness and his concentration was slightly impaired. Pt denies falling d/t dizziness. Pt equates to feeling like motion sickness JACKELYN Truong CNP prescribed meclizine. Pt has been on a stable dose greater than 2 cycles and next cycle is optional. Pt will get lab work completed locally for a cbc/d in 4 weeks, ~09/10/2022. Pt verbalized understanding. All labs and AEs reviewed by and JACKELYN Truong CNP Patient continues to meet parameters to proceed with therapy. Concomitant medications reviewed per protocol: yes Changes per patient: none Quality of life questionnaire completed per protocol: Yes Clinical trial labs completed per protocol: Yes Vitals completed per protocol: Yes 08/13/2022 BSA 0 BMI 0 Temp 36.8 ?C (98.3 ?F) Pulse 79 Resp 18 BP 132/69 ECO EKG: Screening QTcF 414 ms. Not required this visit. CT: Not required this visit Spleen: 0 cm Derm: unremarkable MPN-SAF (MPN-10) TSS: Perameter Score (0 if absent to 10 if worst imaginable) In the past 24 hours: Fatigue 0 In the past 7 days: Early satiety 0 Abdominal pain (and discomfort) 0 Inactivity 0 Concentration 1 Night sweats 0 Pruritus 0 Diffuse Bone pain (not joint pain/arthritis) 0 Fever (>100 F, 10 = daily) 0 Weight loss (or gain) in past 6 months 0 Overall QoL 0 Enrique WILLINGHAM et alJ Clin Oncol 2012;30:[id number]. PAST MEDICAL HISTORY Diagnosis Date Status/Active Issues Elevated prostate specific antigen (PSA) 09/2020 Controlled Hypertension 10/2020 Controlled with medication REYMUNDO (obstructive sleep apnea) ~2018 Uncontrolled/does not use CPAP Polycythemia Vera 09/2020 Uncontrolled Seasonal allergic rhinitis due to pollen *greater than 30 years Controlled with medication DVT, left upper arm after clavicle repair 2001 Lump to right side of neck, *pt reported-lypoma?? 2016 2016 Vitiligo ~2002 PAST SURGICAL HISTORY Procedure Laterality Date CLAVICLE LEFT REPAIR 2001 COLONOSCOPY 2015 DIAGNOSTIC ARTHROSCOPY KNEE Right ~2006 Inguinal hernia repair ~1979 INGUINAL HERNIA MESH REPAIR HX ~1998 REMOVE TONSILS/ADENOIDS,<12 Y/O ~ Social history: Smoking status: nonsmoker ETOH intake: Drinks on average 1-2 times per week, 2 rum and cokes. Denies recreational drug use. 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 HTN 10/2020 multivitamin with minerals (ONE-A-DAY 50 PLUS ORAL) 1 tab PO daily Health *greater than 8 years aspirin 81 mg cap 81 mg PO daily Heart/PV 2019 Kenalog injection 60 mg IM twice a year Seasonal allergies ~1989 Zithromax 500 mg po first day and 250 mg daily for 4 days Sinus congestion ~03/11/2021 Stopped 03/15/2021 Flonase 2 sprays in each nostril daily Sinus congestion ~03/11/2021 Stopped 03/15/2021 Sulfacetamide eye gtts, 10% 2 gtts in each eye for QID Eye infection ~03/11/2021 Stopped ~03/17/2021 Tylenol 1 gram PO TID PRN Headaches 03/02/2021 Hydrocortiscone cream, OTC Apply to area BID Injection site reaction 03/19/2021 Paxlovid (nirmatrelvir 300 mg and ritonavir 100 mg) PO twice daily for 5 days Covid-19 infection ~12/15/2021 Stopped 12/20/2021 Cefuroxime-Axeil 500 mg PO BID x 7 days URI ~02/10/2022 Stopped ~02/18/2022 Terbinafine HCL Oral 250 mg by mouth once daily Fungal skin infection 07/2022 Efinaconazole 10% Apply 1 application to affected area once daily Fungal skin infection 07/2022 Opzelura 1.5% cream Apply twice daily to areas of skin with vitiligo Vitiligo Pt to call when starts medication still not started as of 08/13/2022 Meclizine 12.5 mg 2 tablets by mouth twice daily as needed dizziness 08/13/2022 Prior PV therapy: Phlebotomies 11/2020 to present Baseline toxicities per CTCAE v. 5: All predate therapy, are chronic conditions and will not be actively followed unless they worsen during the clinical trial. Pruritus Grade 1. Baseline. Start date: 12/2020. Resolve date: ongoing. Drugs to treat: none. Outcome: present intermittently Night sweats Grade 1. Baseline. Start date: 2018. Resolve date: ongoing. Drugs to treat: none. Outcome: present intermittently Bone pain (legs)Grade 1. Baseline. Start date: 12/2020. Resolve date: ongoing. Drugs to treat: none. Outcome: present intermittently Lump to right side of neck (lypoma?) Grade 1. Baseline. Start date: 2015. Resolve date: ongoing. Drugs to treat: none. Outcome: still present Urinary frequency Grade 1. Baseline. Start date: 2020. Resolve date: ongoing. Drugs to treat: none.Outcome: still present Skin hypopigmentation (Vitiligo) Grade 1. Baseline. Start date: ~2002. Resolve date: ongoing. Drugsto treat: opzelura cream. Outcome: still present Toxicities per CTCAE v.5: 08/13/2022 Anemia Grade 1. RELATED to PTG-300. Start date: 03/13/2021. Resolve date: ongoing. Drugs to treat: none. Outcome: still present Injection site reaction (firmness) Grade 1. RELATED to PTG-300. Start date: 04/23/2021. Resolve date: ongoing with each weekly injection. Drugs to treat: hydrocortisone, ice. Outcome: present intermittently with each injection of PTG- 300 and resolves 6-7 days after the injection Injection site reaction (erythema, swelling) Grade 1. RELATED to PTG-300. Start date: 04/23/2021. Resolve date: ongoing with each weekly injection. Drugs to treat: hydrocortisone, ice. Outcome: present intermittently with each injection of PTG-300 and resolves 3-4 days after the injection Injection site reaction (bruising) Grade 1. RELATED to PTG-300. Start date: 03/26/2021. Resolve date: ongoing. Drugs to treat: none. Outcome: present intermittently at injection sites Fatigue Grade 1. UNRELATED to PTG-300. Start date: 06/2021. Resolve date: ongoing. Drugs to treat: none. Outcome: still present Cold feet bilaterally Grade 1. UNRELATED to PTG-300. Start date:~08/21/2021. Resolve date: ongoing. Drugs to treat: none. Outcome: present intermittently Hypoglycemia Grade 1. UNRELATED to PTG-300. Start date:12/31/2021. Resolve date: ongoing. Drugs to treat: none. Outcome: present intermittently Muscle cramp (leg cramps) Grade 1. UNRELATED to PTG-300. Start date: 12/2021. Resolve date: ongoing. Drugs to treat: none. Outcome: present intermittently Hair loss Grade 1. UNRELATED to PTG-300. Start date: 11/2021. Resolve date: ongoing. Drugs to treat: none. Outcome: still present Restless legs Grade 1. UNRELATED. Start date: ~04/2021. Resolve date: ongoing. Drugs to treat: none.Outcome: present intermittently Fungal fingernail infection (to bilateral hands) Grade 2. UNRELATED. Start date: 2022. Resolve date: ongoing. Drugs to treat: antifungal cream. Outcome: still present General disorders and administration site conditions (abd skin tougher/thickened) Grade 1. RELATED to PTG-300. Start date: ~04/2022. Resolve date: ongoing. Drugs to treat: none. Outcome: still present Dizziness Grade 1. UNRELATED. Start date: ~07/2022. Resolve date: ongoing. Drugs to treat: meclizine. Outcome: monitor. Resolved: Headaches Grade 2. POSSIBLY RELATED. Start date: 03/02/2021. Resolve date: 03/24/2021. Drugs to treat:flonase, zithromax, tylenol. Outcome: resolved Sinus congestion Grade 2. UNRELATED. Start date: 03/06/2021. Resolve date: 03/24/2021. Drugs to treat:flonase, zithromax, tylenol. Outcome: resolved Injection site reaction (erythema, itching, swelling, firmness) Grade 1. RELATED. Start date: 03/05/2021. Resolve date: 03/09/2021. Drugs to treat: none. Outcome: resolved Injection site reaction (erythema, itching, swelling, firmness) Grade 1. RELATED. Start date: 03/12/2021. Resolve date: 03/17/2021. Drugs to treat: none. Outcome: resolved Injection site reaction (erythema, itching, swelling, firmness) Grade 1. RELATED. Start date: 03/19/2021. Resolve date: 03/21/2021. Drugs to treat: ice, hydrocortisone cream. Outcome: resolved Eye infection Grade 2. UNRELATED. Start date: ~03/11/2021. Resolve date: ~03/17/2021. Drugs to treat: sulfacetamide tts. Outcome: resolved Injection site reaction (erythema, itching, swelling, bruising, firmness) Grade 1. RELATED. Start date: 03/26/2021. Resolve date: 04/02/2021. Drugs to treat: ice. Outcome: resolved Injection site reaction (erythema, itching, swelling, firmness) Grade 1. RELATED. Start date: 04/02/2021. Resolve date: 04/09/2021. Drugs to treat: ice.. Outcome: resolved Injection site reaction (erythema, itching, swelling, firmness) Grade 1. RELATED. Start date: 04/09/2021. Resolve date: 04/16/2021. Drugs to treat: ice. Outcome: resolved Injection site reaction (erythema, itching, swelling, firmness) Grade 1. RELATED. Start date: 04/16/2021. Resolve date: 04/23/2021. Drugs to treat: ice Outcome:resolved Ankle swelling Grade 1. UNRELATED. Start date: 04/09/2021. Resolve date: 04/11/2021. Drugs to treat: none. Outcome: resolved Red spots to bilateral axilla (folliculitis?) Grade 1. UNRELATED to PTG-300. Start date: 10/2021. Resolve date: 02/2022. Drugs to treat: none. Outcome: resolved Lung infection (COVID-19 infection) Grade 2. UNRELATED. Start date: ~12/15/2021. Resolve date: 12/22/2021. Drugs to treat: paxlovid. Outcome: resolved Upper respiratory infection Grade 2. UNRELATED. Start date: ~02/10/2022. Resolve date: 04/22/2022. Drugs to treat: Cefuroxime-axeil. Outcome: resolved Abrasion to back Grade 1. UNRELATED. Start date: ~04/18/2022. Resolve date: 06/17/2022. Drugs to treat:none. Outcome: resolved Dosing: Reviewed administration directions for giving a SC injection and injection sites. Discussedrotation of injection sites and to not use the same site as the previous week. Pt verbalized understanding. Pt to self administered 60 mg PTG-300 SC injection at home today. Pt reports are better days to dose for his schedule and will dose today and then back to . Patient states he feels comfortable administering injections at home. Patient has research RN contact information and hem/onc fellow torsion spring coiling machine setter phone number. 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 Patient aware to call the research team for injection site reactions that do not resolve in 24 hours. Pt aware tylenol can be taken for injection site pain and may use ice. OTC Hydrocortisone cream may be used also. Pt verbalized understanding Reviewed study drug log. Pt given TWO new study logs. Discussed storage of study medication in refrigerator and can be room temperature for 12 hours. Pt is using the soft sided cooler bag and instructed to keep freezer packs in the freezer and bring back bag and ice packs with him to next visit in order to transport medication home. Patient verbalized understanding. Returned: 8 empty cartons of 40 mg dose of PTG-300 and 8 empty cartons of 20 mg dose of PTG-300. The count is accurate. When new supply of drug is given patient instructed to return the diary and theempty cartons at next study visit. Use of the study medication diary and dosing instructions were reviewed with the patient Dispensed: The patient was given 16 syringes of PTG-300. Eight at 40 mg each and eight at 20 mg each as dispensed by the pharmacy. 20 mg Syringe #s: G5757, G5762, G5867, G5871 40 mg Syringe #s: H6953, H7103, H7238, H7240 The provider has reviewed and verified the information included within this note, including AE information Patient understands that the nurse or MD must be called prior to taking any new medications as wellas stopping any medications. Patient also understands to call nurse or MD should there any new medical issues arise and/or goes to the hospital for any reason. Patient is aware to monitor temperatureand to call and/or go to the nearest emergency room for temperatures of 100.4 or greater. Patient knows to call in the interim for any questions or concerns. Patient has contact information for Hannah Lyons RN Research Nurse and Dr. Ventura, along with the 24 hour On-Call number for the On-Call Oncology Fellow ([phone]). Patient understands that this participation is voluntary and may withdrawal at any time during the trial. Patient aware to get local blood work in 4 weeks and RTC in8 weeks for Part 3 Cycle 12 day 1 of PTG 1Z21. Kyleigh Rust RN, OCN documented in this encounterWvumedicine [facility]06-30-2023 History of Present illness Narrative* Annie Abreu APRN.CHAMFERING MACHINE OPERATOR - 08/13/2022 2:00 PM EDT *Some elements have been copied from Sheryl Gonzalez's note on 06/17/2022 - The elements have been updated and all reflect my current decision making from today, 08/13/2022. [facility] Clinical Note Assessment and Plan In summary: Mr. Leos is a 57 year old gentleman with polycythemia vera. Problem List Polycythemia vera He also has a history of erythrocytosis, elevated PSA, HTN, and REYMUNDO (not on CPAP). He did have a left upper arm DVT in 1999 which was provoked by a left clavicle surgery. He had an elevated hemoglobin as far back as August 2013 (but it was normal again in January of 2015). In September of 2020 he had ahemoglobin of 18.8 g/dL. Subsequent erythropoietin testing was 1.1 mIU/mL. Testing of the peripheral blood on 10/16/2020 was negative for BCR-ABL, but positive for JAK2 V617F (VAF 47%). He started treatment with PTG-300 on 02/26/2021 (phae II study). Since starting he has not required phlebotomies. Tolerating therapy well. No dose adjustments indicated based on labs. Will continue with study. DERM Recently prescribed Opzelura (topical ruxolitinib) for vitiligo of hands, feet, axilla prior to his06/17/2022 appointment with us. He still has not started this. Also prescribed oral and topical antifungals for fingernails (terbinafine and efinaconazole, respectively) which he has been using per hisdermatologist. No interactions or restrictions between investigational PT G-300 and these medications noted in the protocol. He has a follow-up appointment with his patcher (non [facility]) on 09/22/2022. Dizziness Intermittent. Had vertigo in the past years ago - resolved with medication. Amenable to trying meclizine - script sent to local [facility] pharmacy per his request. Provided after-hours/weekend provider on-call telephone number for any questions/concerns given the upcoming weekend and holiday. RTC in 8 weeks with labs per study protocol - to get labs locally in [place] in the meanwhile in ~4 weeks. Signed: Annie Abreu APRN.CHAMFERING MACHINE OPERATOR Date: August 13, 2022 Visit Details Interval History Mr. Leos presents today for follow up, accompanied by his . He reports feeling well overall.Denies specific complaints today other than some mild fatigue and vertigo-like dizziness at times. Denies having these symptoms while driving. Reports eating and drinking well. Admits to having had vertigo in the past years ago. He hasn't yet started the topical opzelura that he was prescribed by his local patcher but he has been taking the oral antifungal and using the topical medication that was also prescribed. He notes the spots on his face are still present - they're not painful nor itchy - but seem to become more pronounced when he's in the sun. He denies any issues with injections other than the skin feeling tough at prior injection sites, which is not new for him. He denies having had any illnesses, hospitalizations or ED visits since lastvisit. Also denies fevers, chills, pain of any type, night sweats, SOB, chest pain or pressure, nausea, vomiting, changes to bowel or bladder habits, edema, or abnormal bleeding. An inventory of his MPN-related symptoms are as follows: MPN-SAF (MPN-10) TSS: Parameter Score (0 if absent to 10 if worst imaginable) In the past 24 hours: Fatigue 2 In the past 7 days: Early satiety 0 Abdominal pain (and discomfort) 0 Inactivity 0 Concentration 1 (d/t vertigo? per pt.) Night sweats 0 Pruritus 0 Diffuse Bone pain (not joint pain/arthritis) 0 Fever (>100 F, 10 = daily) 0 Weight loss (or gain) in past 6 months 0 Overall QoL 0 Enrique WILLINGHAM et alJ Clin Oncol 2012;30:1255-3176. Review of Systems Reviewed and negative aside from that noted above in interval history. Adjunct Histories PAST MEDICAL HISTORY Diagnosis Date Elevated prostate specific antigen (PSA) Hypertension REYMUNDO (obstructive sleep apnea) Polycythemia Seasonal allergic rhinitis due to pollen PAST SURGICAL HISTORY Procedure Laterality Date ARTHROSCOPY KNEE DIAGNOSTIC W/WO SYNOVIAL BX SPX Right CLAVICLE LEFT COLONOSCOPY 2015 INGUINAL HERNIA REPAIR HX TONSILLECTOMY & ADENOIDECTOMY <AGE 11 Social History Tobacco Use Smoking status: Never Smokeless tobacco: Never Vaping Use Vaping Use: Never used Substance Use Topics Alcohol use: Yes Drug use: Not Currently Allergies and Medications ALLERGIES Allergen Reactions Bactrim [Sulfametho* Rash TERBINAFINE HCL ORAL^Take 250 mg by mouth once daily.^Disp: ^Rfl: efinaconazole 10 % alfa^Apply 1 application to affected area once daily.^Disp: ^Rfl: ruxolitinib phosphate (OPZELURA TOPICAL)^Apply to affected area.^Disp: ^Rfl: meclizine (ANTIVERT) 12.5 mg tab^Take 2 tablets by mouth twice daily as needed.^Disp: 28 tablet^Rfl: 0 alcohol swabs^Apply 1 Each to affected area one time a week.^Disp: 100 Each^Rfl: 0 Oral Medication Containers (SHARPS CONTAINER) misc^1 Container as directed.^Disp: 1 Each^Rfl: 0 KRILL OIL ORAL^Take by mouth twice daily.^Disp: ^Rfl: amLODIPine (NORVASC) 5 mg tablet^Take 5 mg by mouth once daily.^Disp: ^Rfl: multivitamin with minerals (ONE-A-DAY 50 PLUS ORAL)^Take by mouth once daily. ^Disp: ^Rfl: aspirin 81 mg cap^Take by mouth once daily. ^Disp: ^Rfl: Exam Vital Signs BP 132/69 Pulse 79 Temp (Src) 98.3 (Oral) Resp 18 Wt 188 lb 4.8 oz (85.4kg) SpO2 99% Performance Status Karnofsky Scale:100 - Normal, no complaints, no evidence of disease. ECOG/Zubrod Performance Scale: 0- Fully active, able to carry on all pre-disease performance w/o restriction. Examination Physical Examination: General: Well appearing, NAD, appropriate HEENT: no scleral icterus, EOMI. Oropharynx and oral mucosa without lesions, erythema, or exudate Pulm: CTA bilaterally Cardiac: Regular rate and rhythm, no murmurs noted Abd: BS+, NT, ND, no masses, no HSM; spleen tip not palpable on exam Skin: No obvious lesions or rashes. +Faint erythematous micropapular lesions to bilateral cheeks. +Onychomycosis of fingernails Neuro: CN II - XII grossly intact Objective Data Labs and Imaging Reviewed, please see Epic. [facility] in this encounterW[facility]* Sidney Churchill LPN - 08/13/2022 1:50 PM EDT Additional intake questions: Has the patient had fever, nausea, vomiting, diarrhea, constipation, fatigue for > 1 week? No Does the patient have a decreased appetite? No Does patient want to see a Service Order Expediter? No (yes to any of above refer patient to schedulers for dietitian appointment) ) Does patient have any new or increased numbness or tingling of extremities? No Is patient interested in fertility information? No Does patient need any prescription refills? No Does patient have an advanced directive in place? No, Patient referred to Resource Center Electronically Signed By: Sidney Churchill LPN documented in this encounterWvumed[facility]06-26-2023 Miscellaneous Notes* Telephone Encounter - Kyleihg Rust RN - 08/09/2022 4:37 PM EDT Returned patients call. 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 I explained that is not permitted and he is required to be assessed by a provider. Arrangements are being made for patient to be seen on Tuesday08/13/2022. Patient stated I should be able to make that, I'll call you on Patient has my return number [phone]. documented in this encounterWvumed[facility]05-04-2023 Nurse Note* Sidney Churchill LPN - 06/17/2022 11:05 AM EDT Additional intake questions: Has the patient had fever, nausea, vomiting, diarrhea, constipation, fatigue for > 1 week? No Does the patient have a decreased appetite? No Does patient want to see a Service Order Expediter? No (yes to any of above refer patient to schedulers for dietitian appointment) ) Does patient have any new or increased numbness or tingling of extremities? No Is patient interested in fertility information? No Does patient need any prescription refills? No Does patient have an advanced directive in place? No, Patient referred to Resource Center Electronically Signed By: Sidney Churchill LPN documented in this encounterWvumed[facility]05-04-2023 History of Present illness Narrative* Sheryl Gonzalez PA-C - 06/17/2022 11:00 AM EDT Elements copied from Meghan Graves' note dated 04/22/2022, have been reviewed and updated where appropriate, and all reflect current assessment and medical decision making during today's encounter, [facility] Clinical Note Assessment and Plan In summary: Mr. Leos is a 57 year old gentleman with polycythemia vera. Problem List Polycythemia vera He also has a history of erythrocytosis. He also has a history of elevated PSA, HTN, and REYMUNDO (not on CPAP). He did have a left upper arm DVT in 1999 was provoked by a left clavicle surgery. He had anelevated hemoglobin as far back as August 2013 (but it was normal again in January of 2015). In September of 2020 he had a hemoglobin of 18.8 g/dL. Subsequent erythropoietin testing was 1.1 mIU/mL. Testing of the peripheral blood on 10/16/2020 was negative for BCR-ABL, but positive for JAK2 V617F (VAF 47%). He started treatment with PTG-300 on 02/26/2021 (phse II study). Since starting he has not required phlebotomies. Tolerating therapy well. No dose adjustments indicated based on labs. Will continue with study. DERM Recently prescribed Opzelura (topical ruxolitinib) for vitiligo of hands, feet, axilla. He has not started this. Also prescribed oral and topical antifungals for fingernails - he will contact us withthe names of the medications prior to starting once he picks them up from the pharmacy. We will review protocol for any contraindications. Leg cramps Intermittent; resolved with increased hydration RTC in 8 weeks with labs per study protocol Sheryl Gonzalez PA-C Hematology/Oncology Pager [phone] Visit Details Interval History Patient presents today for follow up on study. Notes he feels well. No specific complaints today. He did see dermatology for a full skin exam however he notes they did not complete this and instead focused on his hands (vitiligo) and fingernails. He was prescribed opzelura and an oral and topical antifungal (names unknown). He has not picked up or started taking any of these at this time. Prior spot on back is intermittent per patient. His has photos of small white dots that have intermittently appeared on his face (appear to be milia). These resolve without intervention. He has had intermittent leg cramping resolved with increased water and liquid IV as needed. He does note his skin fe els tough at prior injection sites making it difficult to administer treatment. Denies hospitalizations or ED visits. No infections or illnesses. Denies fevers, chills, night sweats, SOB, chest pain,[place], vision changes, N/V/D/C, edema, bleeding, or bruising. MPN-SAF (MPN-10) TSS: Perameter Score (0 if absent to 10 if worst imaginable) In the past 24 hours: Fatigue 0 In the past 7 days: Early satiety 0 Abdominal pain (and discomfort) 0 Inactivity 0 Concentration 0 Night sweats 0 Pruritus 0 Diffuse Bone pain (not joint pain/arthritis) 0 Fever (>100 F, 10 = daily) 0 Weight loss (or gain) in past 6 months 0 Overall QoL 0 Enrique WILLINGHAM et alJ Clin Oncol 2012;30:0294-0871. Review of Systems Reviewed and noted in HPI Adjunct Histories PAST MEDICAL HISTORY Diagnosis Date Elevated prostate specific antigen (PSA) Hypertension REYMUNDO (obstructive sleep apnea) Polycythemia Seasonal allergic rhinitis due to pollen PAST SURGICAL HISTORY Procedure Laterality Date ARTHROSCOPY KNEE DIAGNOSTIC W/WO SYNOVIAL BX SPX Right CLAVICLE LEFT COLONOSCOPY 2015 INGUINAL HERNIA REPAIR HX TONSILLECTOMY & ADENOIDECTOMY <AGE 11 Social History Tobacco Use Smoking status: Never Smokeless tobacco: Never Vaping Use Vaping Use: Never used Substance Use Topics Alcohol use: Yes Drug use: Not Currently Allergies and Medications ALLERGIES Allergen Reactions Bactrim [Sulfametho* Rash alcohol swabs Apply 1 Each to affected area one time a week. Oral Medication Containers (SHARPS CONTAINER) [facility] 1 Container as directed. KRILL OIL ORAL Take by mouth twice daily. amLODIPine (NORVASC) 5 mg tablet Take 5 mg by mouth once daily. multivitamin with minerals (ONE-A-DAY 50 PLUS ORAL) Take by mouth once daily. aspirin 81 mg cap Take by mouth once daily. Exam Vital Signs BP 132/66 Pulse 71 Temp (Src) 97.7 (Temporal) Resp 18 Wt 186 lb (84.4kg) SpO2 99% Performance Status Karnofsky Scale:100 - Normal, no complaints, no evidence of disease. ECOG/Zubrod Performance Scale: 0- Fully active, able to carry on all pre-disease performance w/o restriction. Examination Physical Examination: General: Well appearing, NAD, appropriate HEENT: no scleral icterus, EOMI Pulm: CTA bilaterally Cardiac: Regular rate and rhythm, no murmurs noted Abd: BS+, NT, ND, no masses, no HSM; spleen tip not palpable on exam Skin: No obvious lesions or rashes Neuro: CN II - XII grossly intact Objective Data Labs and Imaging Reviewed outside records provided prior to this visit and those in [facility]. documented in this encounterW[facility]04-21-2023 Evaluation note* Encounter Date Diagnosis Assessment Notes Treatment Notes Treatment Clinical Notes May, Seasonal allergic rhinitis due to pollen (ICD-10 - J30.1) [place] Other 03-09-2023 History of Present illness Narrative* Hannah Lyons RN - 04/22/2022 12:38 PM ESTSummary: PTG 1Z21/21-283 Part 3 cycle 6 day 1 visit Title:A Phase 2 Study of the Hepcidin Mimetic PTG-300 in Patients with Phlebotomy-Requiring Polycythemia Vera Consent expiration 05/29/2021 Screening date: 02/12/2021 Screening #: [id number] Part 1 week 1: 02/26/2021 Part 2 week 29: 09/10/2021 Part 2 week 41: 12/03/2021 Part 3 cycle 1 day 1: 12/03/2021 Patient is here today for Part 3 cycle 6 day 1 visit for the PTG 1Z21 Trial, IRB# [id number]. PE: completed by Delfina Graves CNP Patient is a Male with PV. Patient is willing and able to comply with the protocol for the durationof the study including undergoing treatment and scheduled visits and examinations. Pt here with his . No phlebotomies needed since last visit. Pt denies headaches. Pt has an areato his back that looks like an abrasion. Pt states was scratching his back with his hard hat. Will monitor. If worsens or gets bigger, pt to be seen by patcher. Pt has been on a stable dose greater than 2 cycles and next cycle is optional. Pt will get lab work completed locally for a cbc/d in4 weeks, ~05/20/2022. Pt verbalized understanding. Patient continues to meet parameters to proceed with therapy. Concomitant medications reviewed per protocol: yes Changes per patient: No Quality of life questionnaire completed per protocol: N/A Clinical trial labs completed per protocol: Yes Vitals completed per protocol: Yes ECO EKG: Screening QTcF 414 ms. Completed by Herber BELL I. QTcF [address]: completed Spleen: 0 cm MPN-SAF (MPN-10) TSS: Perameter Score (0 if absent to 10 if worst imaginable) In the past 24 hours: Fatigue 0 In the past 7 days: Early satiety 0 Abdominal pain (and discomfort) 0 Inactivity 0 Concentration 0 Night sweats 0 Pruritus 0 Diffuse Bone pain (not joint pain/arthritis) 0 Fever (>100 F, 10 = daily) 0 Weight loss (or gain) in past 6 months 0 Overall QoL 0 Enrique WILLINGHAM et alJ Clin Oncol 2012;30:6614-3841. PAST MEDICAL HISTORY Diagnosis Date Status/Active Issues Elevated prostate specific antigen (PSA) 09/2020 Controlled Hypertension 10/2020 Controlled with medication REYMUNDO (obstructive sleep apnea) ~2018 Uncontrolled/does not use CPAP Polycythemia Vera 09/2020 Uncontrolled Seasonal allergic rhinitis due to pollen *greater than 30 years Controlled with medication DVT, left upper arm after clavicle repair 2001 Lump to right side of neck, *pt reported-lypoma?? 2016 2016 PAST SURGICAL HISTORY Procedure Laterality Date CLAVICLE LEFT REPAIR 2001 COLONOSCOPY 2014 DIAGNOSTIC ARTHROSCOPY KNEE Right ~2006 Inguinal hernia repair ~1979 INGUINAL HERNIA MESH REPAIR HX ~1998 REMOVE TONSILS/ADENOIDS,<12 Y/O ~ Social history: Smoking status: nonsmoker ETOH intake: Drinks on average 1-2 times per week, 2 rum and cokes. Denies recreational drug use. 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 HTN 10/2020 multivitamin with minerals (ONE-A-DAY 50 PLUS ORAL) 1 tab PO daily Health *greater than 8 years aspirin 81 mg cap 81 mg PO daily Heart/PV 2018 Kenalog injection 60 mg IM twice a year Seasonal allergies ~1989 Zithromax 500 mg po first day and 250 mg daily for 4 days Sinus congestion ~03/11/2021 Stopped 03/15/2021 Flonase 2 sprays in each nostril daily Sinus congestion ~03/11/2021 Stopped 03/15/2021 Sulfacetamide eye gtts, 10% 2 gtts in each eye for QID Eye infection ~03/11/2021 Stopped ~03/17/2021 Tylenol 1 gram PO TID PRN Headaches 03/02/2021 Hydrocortiscone cream, OTC Apply to area BID Injection site reaction 03/19/2021 Paxlovid (nirmatrelvir 300 mg and ritonavir 100 mg) PO twice daily for 5 days Covid-19 infection ~12/15/2021 Stopped 12/20/2021 Cefuroxime-Axeil 500 mg PO BID x 7 days URI ~02/10/2022 Stopped ~02/18/2022 Prior PV therapy: Phlebotomies 11/2020 to present Baseline toxicities per CTCAE v. 5: All predate therapy, are chronic conditions and will not be actively followed unless they worsen during the clinical trial. Pruritus Grade 1. Baseline. Start date: 12/2020. Resolve date: ongoing. Drugs to treat: none. Outcome: present intermittently Night sweats Grade 1. Baseline. Start date: 2018. Resolve date: ongoing. Drugs to treat: none. Outcome: present intermittently Bone pain (legs)Grade 1. Baseline. Start date: 12/2020. Resolve date: ongoing. Drugs to treat: none. Outcome: present intermittently Lump to right side of neck (lypoma?) Grade 1. Baseline. Start date: 2015. Resolve date: ongoing. Drugs to treat: none. Outcome: still present Urinary frequency Grade 1. Baseline. Start date: 2020. Resolve date: ongoing. Drugs to treat: none.Outcome: still present Toxicities per CTCAE v.5: 04/22/2022 Anemia Grade 1. RELATED to PTG-300. Start date: 03/13/2021. Resolve date: ongoing. Drugs to treat: none. Outcome: still present Injection site reaction (firmness) Grade 1. RELATED to PTG-300. Start date: 04/23/2021. Resolve date: ongoing with each weekly injection. Drugs to treat: hydrocortisone, ice. Outcome: present intermittently with each injection of PTG- 300 and resolves 6-7 days after the injection Injection site reaction (erythema, swelling) Grade 1. RELATED to PTG-300. Start date: 04/23/2021. Resolve date: ongoing with each weekly injection. Drugs to treat: hydrocortisone, ice. Outcome: present intermittently with each injection of PTG-300 and resolves 3-4 days after the injection Injection site reaction (bruising) Grade 1. RELATED to PTG-300. Start date: 03/26/2021. Resolve date: ongoing. Drugs to treat: none. Outcome: present intermittently at injection sites Fatigue Grade 1. UNRELATED to PTG-300. Start date: 06/2021. Resolve date: ongoing. Drugs to treat: none. Outcome: still present Cold feet bilaterally Grade 1. UNRELATED to PTG-300. Start date:~08/21/2021. Resolve date: ongoing. Drugs to treat: none. Outcome: present intermittently Hypoglycemia Grade 1. UNRELATED to PTG-300. Start date:12/31/2021. Resolve date: ongoing. Drugs to treat: none. Outcome: present intermittently Muscle cramp (leg cramps) Grade 1. UNRELATED to PTG-300. Start date: 12/2021. Resolve date: ongoing. Drugs to treat: none. Outcome: present intermittently Hair loss Grade 1. UNRELATED to PTG-300. Start date: 11/2021. Resolve date: ongoing. Drugs to treat: none. Outcome: still present Upper respiratory infection Grade 2. UNRELATED. Start date: ~02/10/2022. Resolve date: 04/22/2022. Drugs to treat: Cefuroxime-axeil. Outcome: resolved Restless legs Grade 1. UNRELATED. Start date: ~04/2021. Resolve date: ongoing. Drugs to treat: none.Outcome: present intermittently Abrasion to back Grade 1. UNRELATED. Start date: ~04/18/2022. Resolve date: ongoing. Drugs to treat: none. Outcome: still present Resolved: Headaches Grade 2. POSSIBLY RELATED. Start date: 03/02/2021. Resolve date: 03/24/2021. Drugs to treat:flonase, zithromax, tylenol. Outcome: resolved Sinus congestion Grade 2. UNRELATED. Start date: 03/06/2021. Resolve date: 03/24/2021. Drugs to treat:flonase, zithromax, tylenol. Outcome: resolved Injection site reaction (erythema, itching, swelling, firmness) Grade 1. RELATED. Start date: 03/05/2021. Resolve date: 03/09/2021. Drugs to treat: none. Outcome: resolved Injection site reaction (erythema, itching, swelling, firmness) Grade 1. RELATED. Start date: 03/12/2021. Resolve date: 03/17/2021. Drugs to treat: none. Outcome: resolved Injection site reaction (erythema, itching, swelling, firmness) Grade 1. RELATED. Start date: 03/19/2021. Resolve date: 03/21/2021. Drugs to treat: ice, hydrocortisone cream. Outcome: resolved Eye infection Grade 2. UNRELATED. Start date: ~03/11/2021. Resolve date: ~03/17/2021. Drugs to treat: sulfacetamide tts. Outcome: resolved Injection site reaction (erythema, itching, swelling, bruising, firmness) Grade 1. RELATED. Start date: 03/26/2021. Resolve date: 04/02/2021. Drugs to treat: ice. Outcome: resolved Injection site reaction (erythema, itching, swelling, firmness) Grade 1. RELATED. Start date: 04/02/2021. Resolve date: 04/09/2021. Drugs to treat: ice.. Outcome: resolved Injection site reaction (erythema, itching, swelling, firmness) Grade 1. RELATED. Start date: 04/09/2021. Resolve date: 04/16/2021. Drugs to treat: ice. Outcome: resolved Injection site reaction (erythema, itching, swelling, firmness) Grade 1. RELATED. Start date: 04/16/2021. Resolve date: 04/23/2021. Drugs to treat: ice Outcome:resolved Ankle swelling Grade 1. UNRELATED. Start date: 04/09/2021. Resolve date: 04/11/2021. Drugs to treat: none. Outcome: resolved Red spots to bilateral axilla (folliculitis?) Grade 1. UNRELATED to PTG-300. Start date: 10/2021. Resolve date: 02/2022. Drugs to treat: none. Outcome: resolved Lung infection (COVID-19 infection) Grade 2. UNRELATED. Start date: ~12/15/2021. Resolve date: 12/22/2021. Drugs to treat: paxlovid. Outcome: resolved Dosing: Reviewed administration directions for giving a SC injection and injection sites. Discussedrotation of injection sites and to not use the same site as the previous week. Pt verbalized understanding. Pt to self administered 60 mg PTG-300 SC injection at home today. Pt reports are better days to dose for his schedule. Patient states he feels comfortable administering injections at home. Patient has research RN contact information and hem/onc fellow torsion spring coiling machine setter phone number. 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 Patient aware to call the research team for injection site reactions that do not resolve in 24 hours. Pt aware tylenol can be taken for injection site pain and may use ice. OTC Hydrocortisone cream may be used also. Pt verbalized understanding. Reviewed study drug log. Pt given TWO new study logs. Discussed storage of study medication in refrigerator and can be room temperature for 12 hours. Pt is using the soft sided cooler bag and instructed to keep freezer packs in the freezer and bring back bag and ice packs with him to next visit in order to transport medication home. Patient verbalized understanding. Returned: 8 empty cartons of 40 mg dose of PTG-300/placebo and 8 empty cartons of 20 mg dose of PTG-300/placebo . The count is accurate. When new supply of drug is given patient instructed to return the diary and the empty cartons at next study visit. Use of the study medication diary and dosing instructions were reviewed with the patient Dispensed: The patient was given 16 syringes of PTG-300. Eight at 40 mg each and eight at 20 mg each as dispensed by the pharmacy. 20 mg Syringe #s: G5372, G5391, G5431, G5437, G5374, G5381, G5390, G5436 40 mg Syringe #s: H6302, H6303, H6304, H6305, H4756, H6009, H6134, H6136 The provider has reviewed and verified the information included within this note, including AE information Patient understands that the nurse or MD must be called prior to taking any new medications as wellas stopping any medications. Patient also understands to call nurse or MD should there any new medical issues arise and/or goes to the hospital for any reason. Patient is aware to monitor temperatureand to call and/or go to the nearest emergency room for temperatures of 100.4 or greater. Patient knows to call in the interim for any questions or concerns. Patient has contact information for Hannah Lyons RN Research Nurse and Dr. Ventura, along with the 24 hour On-Call number for the On-Call Oncology Fellow ([phone]). Patient understands that this participation is voluntary and may withdrawal at any time during the trial. Patient aware to get local blood work in 4 weeks and RTC in8 weeks for Part 3 Cycle 8 day 1 of PTG 1Z21. CAROL Zambrano, RN documented in this encounterW[facility] History of Present illness Narrative* RT Tammi(R) - 04/22/2022 9:30 AM EST Radiology Service Progress Note PATIENT NAME: Anil Leos DATE OF SERVICE: April 22, 2022 TIME: 8:55 AM PATIENT IDENTITY VERIFICATION COMPLETED USING TWO (2) IDENTIFIERS: Name and Date of confirmedby patient verbally and Name and Date of confirmed by identification band. FALL SCREENING: Has the patient had 2 falls in the last year or 1 fall with injury or currently using an Ambulatory Assistive Device (Walker, Cane, Wheelchair, Crutches, etc.)? No PATIENT GENDER DATA: Male PATIENT RELEVANT IMPLANT DATA REVIEWED: Yes RADIOLOGY DEPARTMENT: CT; Exam(s) Completed: Abdomen PERIPHERAL IV DATA: Not applicable SIGNED BY: RT Tammi(R) April 22, 2022 8:55 AM documented in this encounterW[facility]01-12-2023 History of Present illness Narrative* Hannah Lyons RN - 02/25/2022 2:09 PM ESTSummary: PTG 1Z21/21-283 Part 3 cycle 4 day 1 visit. Title:A Phase 2 Study of the Hepcidin Mimetic PTG-300 in Patients with Phlebotomy-Requiring Polycythemia Vera Consent expiration 05/29/2021 Screening date: 02/12/2021 Screening #: [id number] Part 1 week 1: 02/26/2021 Part 2 week 29: 09/10/2021 Part 2 week 41: 12/03/2021 Part 3 cycle 1 day 1: 12/03/2021 Patient is here today for Part 3 cycle 4 day 1 visit for the PTG 1Z21 Trial, IRB# [id number]. PE: completed by Dr. Ventura Patient is a Male with PV. Patient is willing and able to comply with the protocol for the durationof the study including undergoing treatment and scheduled visits and examinations. Pt here with his . No phlebotomies needed since last visit. Pt denies headaches. Pt continues to state injection site reactions are firmness at the site. Pt denies redness or swelling with the last 4 week injections. Pt states his legs cramps have resolved. He did not start any supplements or medication for the leg cramps. Pt states he feels like his legs are restless often. He reports this sensation for the past 6-12 months. Pt forgot to notify research team that he has COVID-19 back in early December 2021 and took Paxlovid for treatment. Pt treated for a recent URI with an antibiotic. URI improving but still has some chest congestion. Pt to see dermatology this month. Previous appt cancelled by pt due to red bumps not being present on his face when the appointment was arranged. Dr. Ventura stated pt should have a yearly derm exam and should go to this appointment whether the red bumps are present or not. Pt verbalized understanding. Pt aware he has been on a stable dose of PTG-300 and his HCT is well controlled. Pt will get local cbc/d for cycle 5 and be dispensed 8 weeks ofstudy medication today. Pt given 2 med logs for notation of dosing. Pt verbalized understanding. Patient continues to meet parameters to proceed with therapy. Concomitant medications reviewed per protocol: yes Changes per patient: No Quality of life questionnaire completed per protocol: yes Clinical trial labs completed per protocol: Yes Vitals completed per protocol: Yes ECO EKG: Screening QTcF 414 ms. Not required this visit CT: not required this visit Spleen: 0 cm MPN-SAF (MPN-10) TSS: Perameter Score (0 if absent to 10 if worst imaginable) In the past 24 hours: Fatigue 1 In the past 7 days: Early satiety 0 Abdominal pain (and discomfort) 0 Inactivity 0 Concentration 0 Night sweats 0 Pruritus 0 Diffuse Bone pain (not joint pain/arthritis) 0 Fever (>100 F, 10 = daily) 0 Weight loss (or gain) in past 6 months 0 Overall QoL 0 Enrique WILLINGHAM et alJ Clin Oncol 2012;30:[id number]. PAST MEDICAL HISTORY Diagnosis Date Status/Active Issues Elevated prostate specific antigen (PSA) 09/2020 Controlled Hypertension 10/2020 Controlled with medication REYMUNDO (obstructive sleep apnea) ~2018 Uncontrolled/does not use CPAP Polycythemia Vera 09/2020 Uncontrolled Seasonal allergic rhinitis due to pollen *greater than 30 years Controlled with medication DVT, left upper arm after clavicle repair 2001 Lump to right side of neck, *pt reported-lypoma?? 2016 2015 PAST SURGICAL HISTORY Procedure Laterality Date CLAVICLE LEFT REPAIR 2001 COLONOSCOPY 2014 DIAGNOSTIC ARTHROSCOPY KNEE Right ~2006 Inguinal hernia repair ~1979 INGUINAL HERNIA MESH REPAIR HX ~1998 REMOVE TONSILS/ADENOIDS,<12 Y/O ~ Social history: Smoking status: nonsmoker ETOH intake: Drinks on average 1-2 times per week, 2 rum and cokes. Denies recreational drug use. 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 HTN 10/2020 multivitamin with minerals (ONE-A-DAY 50 PLUS ORAL) 1 tab PO daily Health *greater than 8 years aspirin 81 mg cap 81 mg PO daily Heart/PV 2019 Kenalog injection 60 mg IM twice a year Seasonal allergies ~1989 Zithromax 500 mg po first day and 250 mg daily for 4 days Sinus congestion ~03/11/2021 Stopped 03/15/2021 Flonase 2 sprays in each nostril daily Sinus congestion ~03/11/2021 Stopped 03/15/2021 Sulfacetamide eye gtts, 10% 2 gtts in each eye for QID Eye infection ~03/11/2021 Stopped ~03/17/2021 Tylenol 1 gram PO TID PRN Headaches 03/02/2021 Hydrocortiscone cream, OTC Apply to area BID Injection site reaction 03/19/2021 Paxlovid (nirmatrelvir 300 mg and ritonavir 100 mg) PO twice daily for 5 days Covid-19 infection ~12/15/2021 Stopped 12/20/2021 Cefuroxime-Axeil 500 mg PO BID x 7 days URI ~02/10/2022 Stopped ~02/18/2022 Prior PV therapy: Phlebotomies 11/2020 to present Baseline toxicities per CTCAE v. 5: All predate therapy, are chronic conditions and will not be actively followed unless they worsen during the clinical trial. Pruritus Grade 1. Baseline. Start date: 12/2020. Resolve date: ongoing. Drugs to treat: none. Outcome: present intermittently Night sweats Grade 1. Baseline. Start date: 2018. Resolve date: ongoing. Drugs to treat: none. Outcome: present intermittently Bone pain (legs)Grade 1. Baseline. Start date: 12/2020. Resolve date: ongoing. Drugs to treat: none. Outcome: present intermittently Lump to right side of neck (lypoma?) Grade 1. Baseline. Start date: 2015. Resolve date: ongoing. Drugs to treat: none. Outcome: still present Urinary frequency Grade 1. Baseline. Start date: 2020. Resolve date: ongoing. Drugs to treat: none.Outcome: still present Toxicities per CTCAE v.5: 02/25/2022 Anemia Grade 1. RELATED to PTG-300. Start date: 03/13/2021. Resolve date: ongoing. Drugs to treat: none. Outcome: still present Injection site reaction (firmness) Grade 1. RELATED to PTG-300. Start date: 04/23/2021. Resolve date: ongoing with each weekly injection. Drugs to treat: hydrocortisone, ice. Outcome: present intermittently with each injection of PTG- 300 and resolves 6-7 days after the injection Injection site reaction (erythema, swelling) Grade 1. RELATED to PTG-300. Start date: 04/23/2021. Resolve date: ongoing with each weekly injection. Drugs to treat: hydrocortisone, ice. Outcome: present intermittently with each injection of PTG-300 and resolves 3-4 days after the injection Injection site reaction (bruising) Grade 1. RELATED to PTG-300. Start date: 03/26/2021. Resolve date: ongoing. Drugs to treat: none. Outcome: present intermittently at injection sites Fatigue Grade 1. UNRELATED to PTG-300. Start date: 06/2021. Resolve date: ongoing. Drugs to treat: none. Outcome: still present Cold feet bilaterally Grade 1. UNRELATED to PTG-300. Start date:~08/21/2021. Resolve date: ongoing. Drugs to treat: none. Outcome: present intermittently Red spots to bilateral axilla (folliculitis?) Grade 1. UNRELATED to PTG-300. Start date: 10/2021. Resolve date: 02/2022. Drugs to treat: none. Outcome: resolved Hypoglycemia Grade 1. UNRELATED to PTG-300. Start date:12/31/2021. Resolve date: ongoing. Drugs to treat: none. Outcome: still present Muscle cramp (leg cramps) Grade 1. UNRELATED to PTG-300. Start date: 12/2021. Resolve date: ongoing. Drugs to treat: none. Outcome: present intermittently Hair loss Grade 1. UNRELATED to PTG-300. Start date: 11/2021. Resolve date: ongoing. Drugs to treat: none. Outcome: still present Lung infection (COVID-19 infection) Grade 2. UNRELATED. Start date: ~12/15/2021. Resolve date: 12/22/2021. Drugs to treat: paxlovid. Outcome: resolved Upper respiratory infection Grade 2. UNRELATED. Start date: ~02/10/2022. Resolve date: ongoing. Drugs to treat: Cefuroxime-axeil. Outcome: still present, improving Restless legs Grade 1. UNRELATED. Start date: ~04/2021. Resolve date: ongoing. Drugs to treat: none.Outcome: present intermittently Resolved: Headaches Grade 2. POSSIBLY RELATED. Start date: 03/02/2021. Resolve date: 03/24/2021. Drugs to treat:flonase, zithromax, tylenol. Outcome: resolved Sinus congestion Grade 2. UNRELATED. Start date: 03/06/2021. Resolve date: 03/24/2021. Drugs to treat:flonase, zithromax, tylenol. Outcome: resolved Injection site reaction (erythema, itching, swelling, firmness) Grade 1. RELATED. Start date: 03/05/2021. Resolve date: 03/09/2021. Drugs to treat: none. Outcome: resolved Injection site reaction (erythema, itching, swelling, firmness) Grade 1. RELATED. Start date: 03/12/2021. Resolve date: 03/17/2021. Drugs to treat: none. Outcome: resolved Injection site reaction (erythema, itching, swelling, firmness) Grade 1. RELATED. Start date: 03/19/2021. Resolve date: 03/21/2021. Drugs to treat: ice, hydrocortisone cream. Outcome: resolved Eye infection Grade 2. UNRELATED. Start date: ~03/11/2021. Resolve date: ~03/17/2021. Drugs to treat: sulfacetamide tts. Outcome: resolved Injection site reaction (erythema, itching, swelling, bruising, firmness) Grade 1. RELATED. Start date: 03/26/2021. Resolve date: 04/02/2021. Drugs to treat: ice. Outcome: resolved Injection site reaction (erythema, itching, swelling, firmness) Grade 1. RELATED. Start date: 04/02/2021. Resolve date: 04/09/2021. Drugs to treat: ice.. Outcome: resolved Injection site reaction (erythema, itching, swelling, firmness) Grade 1. RELATED. Start date: 04/09/2021. Resolve date: 04/16/2021. Drugs to treat: ice. Outcome: resolved Injection site reaction (erythema, itching, swelling, firmness) Grade 1. RELATED. Start date: 04/16/2021. Resolve date: 04/23/2021. Drugs to treat: ice Outcome:resolved Ankle swelling Grade 1. UNRELATED. Start date: 04/09/2021. Resolve date: 04/11/2021. Drugs to treat: none. Outcome: resolved Dosing: Reviewed administration directions for giving a SC injection and injection sites. Discussedrotation of injection sites and to not use the same site as the previous week. Pt verbalized understanding. Pt to self administered 60 mg PTG-300 SC injection at home today. Pt reports are better days to dose for his schedule. Patient states he feels comfortable administering injections at home. Patient has research RN contact information and hem/onc fellow torsion spring coiling machine setter phone number. 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 Patient aware to call the research team for injection site reactions that do not resolve in 24 hours. Pt aware tylenol can be taken for injection site pain and may use ice. OTC Hydrocortisone cream may be used also. Pt verbalized understanding. Reviewed study drug log. Pt given a new TWO study logs. Discussed storage of study medication in refrigerator and can be room temperature for 12 hours. Pt is using the soft sided cooler bag and instructed to keep freezer packs in the freezer and bring back bag and ice packs with him to next visit in order to transport medication home. Patient verbalized understanding. Returned: 4 empty cartons of 40 mg dose of PTG-300/placebo and 4 empty cartons of 20 mg dose of PTG-300/placebo . The count is accurate. When new supply of drug is given patient instructed to return the diary and the empty cartons at next study visit. Use of the study medication diary and dosing instructions were reviewed with the patient Dispensed: The patient was given 16 syringes of PTG-300. Eight at 40 mg each and eight at 20 mg each as dispensed by the pharmacy. 20 mg Syringe #s: G5020, G5022, G5025, G5030, G5017, G5024, G5028, G5029 40 mg Syringe #s: H5661, H6006, H6012, H6013, H6007, H6008, H6010, H6011 The provider has reviewed and verified the information included within this note, including AE information Patient understands that the nurse or MD must be called prior to taking any new medications as wellas stopping any medications. Patient also understands to call nurse or MD should there any new medical issues arise and/or goes to the hospital for any reason. Patient is aware to monitor temperatureand to call and/or go to the nearest emergency room for temperatures of 100.4 or greater. Patient knows to call in the interim for any questions or concerns. Patient has contact information for Hannah Lyons RN Research Nurse and Dr. Ventura, along with the 24 hour On-Call number for the On-Call Oncology Fellow ([phone]). Patient understands that this participation is voluntary and may withdrawal at any time during the trial. Patient aware to get local blood work in 4 weeks and RTC in8 weeks for Part 3 Cycle 6 day 1 of PTG 1Z21. CAROL Zambrano, RN documented in this encounterW[facility]01-12-2023 History of Present illness Narrative* Bryce Ventura MD - 02/25/2022 1:20 PM EST Some elements copied from my note on 12/31/2021, the elements have been updated and all reflect current decision making from today, 01/28/2022. [facility] Clinical Note Assessment and Plan In summary: Mr. Leos is a 56 year old gentleman with polycythemia vera. Problem List Polycythemia vera He also has a history of erythrocytosis. He also has a history of elevated PSA, HTN, and REYMUNDO (not on CPAP). He did have a left upper arm DVT in 1999 was provoked by a left clavicle surgery. He had anelevated hemoglobin as far back as August 2013 (but it was normal again in January of 2015). In September of 2020 he had a hemoglobin of 18.8 g/dL. Subsequent erythropoietin testing was 1.1 mIU/mL. Testing of the peripheral blood on 10/16/2020 was negative for BCR-ABL, but positive for JAK2 V617F (VAF 47%). He started treatment with PTG-300 on 02/26/2021 (phse II study). Since starting he has not required phlebotomies. He is overall doing quite well. No pain today. He did not meet with dermatology as thespots had disappeared. He has an appointment coming up for his annual skin check. Appetite has beengood. Minimal injection site reaction with the larger injection. Weight is overall stable. Labs in 1 month, follow up per study in 2 months. I spent a total of 30 minutes on the date of the service which included preparing to see the patient, [id number] patient care, completing clinical documentation, performing a medically appropriate examination, counseling and educating the patient/family/caregiver, ordering medications, tests, or p rocedures, communicating with other HCPs (not separately reported), independently interpreting results (not separately reported), and care coordination (not separately reported). Bryce Ventura MD Visit Details Past Medical History He is here today for follow up. Overall he is feeling well and offers no new complaints. Has not required phlebotomy since starting on study. Does have injection site reaction (lump) with the larger of the 2 injections. No itchiness. An inventory of his PV-related symptoms are as follows: MPN-SAF (MPN-10) TSS: Perameter Score (0 if absent to 10 if worst imaginable) In the past 24 hours: Fatigue 1 - work related In the past 7 days: Early satiety 0 Abdominal pain (and discomfort) 0 Inactivity 0 Concentration 0 Night sweats 0 Pruritus 0 Diffuse Bone pain (not joint pain/arthritis) 0 Fever (>100 F, 10 = daily) 0 Weight loss (or gain) in past 6 months 0 Overall QoL 0 Enrique WILLINGHAM et alJ Clin Oncol 2012;30:[id number]. Review of Systems PAIN ASSESSMENT: Negative for pain, history of chronic pain, or current treatment for a chronic pain condition GENERAL: No weight loss, malaise or fevers. HEENT: Positive forsignificant headaches, now resolved. No changes in hearing or vision, no nose bleeds or other nasal problems RESPIRATORY: Negative for cough, hemoptysis, wheezing or shortness of breath CARDIOVASCULAR: Negative for chest pain, leg swelling or palpitations. GI: no nausea, vomiting, or diarrhea : No history of dysuria, frequency or incontinence. MUSCULOSKELETAL: Negative for joint pain, back pain or muscle pain. Positive for leg achiness and cramping. SKIN: Negative for lesions, rash, Positive for intermittent itching to scalp and face, unchanged. HEMATOLOGY/LYMPHOLOGY: Negative for prolonged bleeding, bruising easily or swollen nodes. NEURO: No history of headaches, syncope, paralysis, seizures or tremors Adjunct Histories PAST MEDICAL HISTORY Diagnosis Date Elevated prostate specific antigen (PSA) Hypertension REYMUNDO (obstructive sleep apnea) Polycythemia Seasonal allergic rhinitis due to pollen PAST SURGICAL HISTORY Procedure Laterality Date ARTHROSCOPY KNEE DIAGNOSTIC W/WO SYNOVIAL BX SPX Right CLAVICLE LEFT COLONOSCOPY 2014 INGUINAL HERNIA REPAIR HX TONSILLECTOMY & ADENOIDECTOMY <AGE 12 Family History Reviewed Including Cardiac Diseases, Psychiatric Diseases, & Substance Abuse Problem: Hypertension Relation: Mother Age of Onset: (Not Specified) Problem: Heart disease Relation: Mother Age of Onset: (Not Specified) Problem: Cancer Relation: Mother Age of Onset: (Not Specified) Problem: Colon Cancer Relation: Mother Age of Onset: (Not Specified) Problem: Lymphoma Relation: Mother Age of Onset: (Not Specified) Problem: Hypertension Relation: Father Age of Onset: (Not Specified) Problem: Diabetes Relation: Father Age of Onset: (Not Specified) Problem: Hypertension Relation: Sister Age of Onset: (Not Specified) Problem: Parkinson s Disease Relation: Maternal Grandmother Age of Onset: (Not Specified) Problem: Lung Cancer Relation: Paternal Grandmother Age of Onset: (Not Specified) Problem: Stroke Relation: Paternal Grandfather Age of Onset: (Not Specified) Social History Tobacco Use Smoking status: Never Smokeless tobacco: Never Vaping Use Vaping Use: Never used Substance Use Topics Alcohol use: Yes Drug use: Not Currently Allergies and Medications ALLERGIES Allergen Reactions Bactrim [Sulfametho* Rash alcohol swabs Apply 1 Each to affected area one time a week. Oral Medication Containers (SHARPS CONTAINER) misc 1 Container as directed. KRILL OIL ORAL Take by mouth twice daily. amLODIPine (NORVASC) 5 mg tablet Take 5 mg by mouth once daily. multivitamin with minerals (ONE-A-DAY 50 PLUS ORAL) Take by mouth once daily. aspirin 81 mg cap Take by mouth once daily. Exam Vital Signs BP 124/75 Pulse 79 Temp (Src) 97.7 (Temporal) Resp 18 Wt 184 lb 4.8 oz (83.6kg) SpO2 100% Performance Status Karnofsky Scale:100 - Normal, no complaints, no evidence of disease. ECOG/Zubrod Performance Scale: 0- Fully active, able to carry on all pre-disease performance w/o restriction. Examination General Appearance: Well appearing, alert, in no acute distress, well-hydrated, well nourished. Skin: Skin color, texture, turgor normal, no suspicious rashes or lesions HEENT: Anicteric sclera Respiratory: Lungs clear to auscultation. No wheezing, rhonchi, rales Heart: RRR without murmur Abdomen: Abdomen soft, non-tender. Bowel sounds normal. No masses, spleen tip not palpable below the left costal margin at the midclavicular line. No hepatomegaly. Extremeties: No deformities, edema Muskuloskeletal: No joint swelling Objective Data Labs and Imaging Reviewed outside records provided prior to this visit and those [facility]. documented in this encounterWv[facility]01-12-2023 Nurse Note* Sidney Churchill LPN - 02/25/2022 1:14 PM EST Additional intake questions: Has the patient had fever, nausea, vomiting, diarrhea, constipation, fatigue for > 1 week? No Does the patient have a decreased appetite? No Does patient want to see a Service Order Expediter? No (yes to any of above refer patient to schedulers for dietitian appointment) ) Does patient have any new or increased numbness or tingling of extremities? No Is patient interested in fertility information? No Does patient need any prescription refills? No Does patient have an advanced directive in place? No, Patient referred to Resource Center Electronically Signed By: Sidney Churchill LPN documented in this encounterWvumedicine [facility]12-22-2022 Miscellaneous Notes* Telephone Encounter - Hannah Lyons RN - 02/04/2022 9:38 AM EST Late entry for 02/03/2022: Pt called and inform research RN he is going to cancel his dermatology appointment due to the spots on his face and axilla have resolved. He has another appointment made with dermatology in February and will go to that appointments. Pt wants the spots on his face to be present when he sees the patcher. Pt to cancel the appointment for 02/04/2022. documented in this encounterWvumedicine [facility]12-15-2022 History of Present illness Narrative* Meghan Graves APRN.CHAMFERING MACHINE OPERATOR - 01/28/2022 11:30 AM EST Some elements copied from my note on 12/31/2021, the elements have been updated and all reflect current decision making from today, 01/28/2022. [facility] Clinical Note Assessment and Plan In summary: Mr. Leos is a 56 year old gentleman with polycythemia vera. Problem List Polycythemia vera He also has a history of erythrocytosis. He also has a history of elevated PSA, HTN, and REYMUNDO (not on CPAP). He did have a left upper arm DVT in 1999 was provoked by a left clavicle surgery. He had anelevated hemoglobin as far back as August 2013 (but it was normal again in January of 2015). In September of 2020 he had a hemoglobin of 18.8 g/dL. Subsequent erythropoietin testing was 1.1 mIU/mL. Testing of the peripheral blood on 10/16/2020 was negative for BCR-ABL, but positive for JAK2 V617F (VAF 47%). He started treatment with PTG-300 on 02/26/2021 (phse II study). Since starting he has not required phlebotomies. He is overall doing quite well. No pain today. Though he does report achiness and cramping in his legs. The cramping is mainly at night. He will try magnesium to see if this is helpful and we will check his Mg level at his next appointment. He continues to have some skin changes to the left side of his nose and now on his forehead. They come and go. He will see Derm on 02/04to have these checked as well as a complete skin check. Appetite has been good. Weight is overall stable. Follow up per study. Meghan Graves APRN.CHAMFERING MACHINE OPERATOR Visit Details Past Medical History He is here today for follow up. Overall he is feeling well and offers no new complaints. His PLT have decreased today. Has not required phlebotomy since starting on study. MPN-SAF (MPN-10) TSS: Perameter Score (0 if absent to 10 if worst imaginable) In the past 24 hours: Fatigue 0 In the past 7 days: Early satiety 0 Abdominal pain (and discomfort) 0 Inactivity 0 Concentration 0 Night sweats 0 Pruritus 0 Diffuse Bone pain (not joint pain/arthritis) 0 Fever (>100 F, 10 = daily) 0 Weight loss (or gain) in past 6 months 0 Overall QoL 0 Enrique WILLINGHAM et alJ Clin Oncol 2012;30:[id number]. Review of Systems PAIN ASSESSMENT: Negative for pain, history of chronic pain, or current treatment for a chronic pain condition GENERAL: No weight loss, malaise or fevers. HEENT: Positive forsignificant headaches, now resolved. No changes in hearing or vision, no nose bleeds or other nasal problems RESPIRATORY: Negative for cough, hemoptysis, wheezing or shortness of breath CARDIOVASCULAR: Negative for chest pain, leg swelling or palpitations. GI: no nausea, vomiting, or diarrhea : No history of dysuria, frequency or incontinence. MUSCULOSKELETAL: Negative for joint pain, back pain or muscle pain. Positive for leg achiness and cramping. SKIN: Negative for lesions, rash, Positive for intermittent itching to scalp and face, unchanged. HEMATOLOGY/LYMPHOLOGY: Negative for prolonged bleeding, bruising easily or swollen nodes. NEURO: No history of headaches, syncope, paralysis, seizures or tremors Adjunct Histories PAST MEDICAL HISTORY Diagnosis Date Elevated prostate specific antigen (PSA) Hypertension REYMUNDO (obstructive sleep apnea) Polycythemia Seasonal allergic rhinitis due to pollen PAST SURGICAL HISTORY Procedure Laterality Date ARTHROSCOPY KNEE DIAGNOSTIC W/WO SYNOVIAL BX SPX Right CLAVICLE LEFT COLONOSCOPY 2014 INGUINAL HERNIA REPAIR HX TONSILLECTOMY & ADENOIDECTOMY <AGE 12 Family History Reviewed Including Cardiac Diseases, Psychiatric Diseases, & Substance Abuse Problem: Hypertension Relation: Mother Age of Onset: (Not Specified) Problem: Heart disease Relation: Mother Age of Onset: (Not Specified) Problem: Cancer Relation: Mother Age of Onset: (Not Specified) Problem: Colon Cancer Relation: Mother Age of Onset: (Not Specified) Problem: Lymphoma Relation: Mother Age of Onset: (Not Specified) Problem: Hypertension Relation: Father Age of Onset: (Not Specified) Problem: Diabetes Relation: Father Age of Onset: (Not Specified) Problem: Hypertension Relation: Sister Age of Onset: (Not Specified) Problem: Parkinson s Disease Relation: Maternal Grandmother Age of Onset: (Not Specified) Problem: Lung Cancer Relation: Paternal Grandmother Age of Onset: (Not Specified) Problem: Stroke Relation: Paternal Grandfather Age of Onset: (Not Specified) Social History Tobacco Use Smoking status: Never Smokeless tobacco: Never Vaping Use Vaping Use: Never used Substance Use Topics Alcohol use: Yes Drug use: Not Currently Allergies and Medications ALLERGIES Allergen Reactions Bactrim [Sulfametho* Rash alcohol swabs Apply 1 Each to affected area one time a week. Oral Medication Containers (SHARPS CONTAINER) misc 1 Container as directed. KRILL OIL ORAL Take by mouth twice daily. amLODIPine (NORVASC) 5 mg tablet Take 5 mg by mouth once daily. multivitamin with minerals (ONE-A-DAY 50 PLUS ORAL) Take by mouth once daily. aspirin 81 mg cap Take by mouth once daily. Exam Vital Signs BP 137/62 Pulse 88 Temp (Src) 97.9 (Oral) Resp 18 Wt 185 lb 8 oz (84.1kg) SpO2 100% Performance Status Karnofsky Scale:100 - Normal, no complaints, no evidence of disease. ECOG/Zubrod Performance Scale: 0- Fully active, able to carry on all pre-disease performance w/o restriction. Examination General Appearance: Well appearing, alert, in no acute distress, well-hydrated, well nourished. Skin: Skin color, texture, turgor normal, no suspicious rashes or lesions HEENT: Anicteric sclera Respiratory: Lungs clear to auscultation. No wheezing, rhonchi, rales Heart: RRR without murmur Abdomen: Abdomen soft, non-tender. Bowel sounds normal. No masses, spleen tip measures 0 cm below the left costal margin at the midclavicular line. No hepatomegaly. Extremeties: No deformities, edema Muskuloskeletal: No joint swelling Objective Data Labs and Imaging Reviewed outside records provided prior to this visit and those in [facility]. [facility] Nurse Note* Sidney Churchill LPN - 01/28/2022 11:25 AM EST Additional intake questions: Has the patient had fever, nausea, vomiting, diarrhea, constipation, fatigue for > 1 week? No Does the patient have a decreased appetite? No Does patient want to see a Service Order Expediter? No (yes to any of above refer patient to schedulers for dietitian appointment) ) Does patient have any new or increased numbness or tingling of extremities? No Is patient interested in fertility information? No Does patient need any prescription refills? No Does patient have an advanced directive in place? No Electronically Signed By: Sidney Churchill LPN documented in this encounterW[facility]11-17-[facility]22 Nurse Note* Nargis Arita LPN - 12/31/2021 11:04 AM EST Additional intake questions: Has the patient had fever, nausea, vomiting, diarrhea, constipation, fatigue for > 1 week? No Does the patient have a decreased appetite? No Does patient want to see a Service Order Expediter? No (yes to any of above refer patient to schedulers for dietitian appointment) ) Does patient have any new or increased numbness or tingling of extremities? No Is patient interested in fertility information? No Does patient need any prescription refills? No Does patient have an advanced directive in place? No, Patient refused referral to Social Work or Resource Center documented in this encounterW[facility]11-17-[facility]22 History of Present illness Narrative* Meghan Graves APRN.CHAMFERING MACHINE OPERATOR - 12/31/2021 11:00 AM EST Some elements copied from my note on 12/03/2021, the elements have been updated and all reflect current decision making from today, 12/31/2021. [facility] Clinical Note Assessment and Plan In summary: Mr. Leos is a 56 year old gentleman with polycythemia vera. Problem List Polycythemia vera He also has a history of erythrocytosis. He also has a history of elevated PSA, HTN, and REYMUNDO (not on CPAP). He did have a left upper arm DVT in 1999 was provoked by a left clavicle surgery. He had anelevated hemoglobin as far back as August 2013 (but it was normal again in January of 2015). In September of 2020 he had a hemoglobin of 18.8 g/dL. Subsequent erythropoietin testing was 1.1 mIU/mL. Testing of the peripheral blood on 10/16/2020 was negative for BCR-ABL, but positive for JAK2 V617F (VAF 47%). He started treatment with PTG-300 on 02/26/2021 (phse II study). Since starting he has not required phlebotomies. He is overall doing quite well. No pain today. Appetite has been good. Weight is overall stable. He does report some muscle weakness over the past 4-6 months. Follow up per study. Meghan Graevs APRN.CHAMFERING MACHINE OPERATOR Visit Details Past Medical History He is here today for follow up. Overall he is feeling well and offers no new complaints. His PLT have decreased today. Has not required phlebotomy since starting on study. MPN-SAF (MPN-10) TSS: Perameter Score (0 if absent to 10 if worst imaginable) In the past 24 hours: Fatigue 0 In the past 7 days: Early satiety 0 Abdominal pain (and discomfort) 0 Inactivity 0 Concentration 0 Night sweats 0 Pruritus 0 Diffuse Bone pain (not joint pain/arthritis) 0 Fever (>100 F, 10 = daily) 0 Weight loss (or gain) in past 6 months 0 Overall QoL 0 Enrique WILLINGHAM et alJ Clin Oncol 2012;30:[id number]. Review of Systems PAIN ASSESSMENT: Negative for pain, history of chronic pain, or current treatment for a chronic pain condition GENERAL: No weight loss, malaise or fevers. HEENT: Positive forsignificant headaches, now resolved. No changes in hearing or vision, no nose bleeds or other nasal problems RESPIRATORY: Negative for cough, hemoptysis, wheezing or shortness of breath CARDIOVASCULAR: Negative for chest pain, leg swelling or palpitations. GI: no nausea, vomiting, or diarrhea : No history of dysuria, frequency or incontinence. MUSCULOSKELETAL: Negative for joint pain, back pain or muscle pain. SKIN: Negative for lesions, rash, Positive for intermittent itching to scalp and face, unchanged. HEMATOLOGY/LYMPHOLOGY: Negative for prolonged bleeding, bruising easily or swollen nodes. NEURO: No history of headaches, syncope, paralysis, seizures or tremors Adjunct Histories PAST MEDICAL HISTORY Diagnosis Date Elevated prostate specific antigen (PSA) Hypertension REYMUNDO (obstructive sleep apnea) Polycythemia Seasonal allergic rhinitis due to pollen PAST SURGICAL HISTORY Procedure Laterality Date ARTHROSCOPY KNEE DIAGNOSTIC W/WO SYNOVIAL BX SPX Right CLAVICLE LEFT COLONOSCOPY 2014 INGUINAL HERNIA REPAIR HX TONSILLECTOMY & ADENOIDECTOMY <AGE 12 Family History Reviewed Including Cardiac Diseases, Psychiatric Diseases, & Substance Abuse Problem: Hypertension Relation: Mother Age of Onset: (Not Specified) Problem: Heart disease Relation: Mother Age of Onset: (Not Specified) Problem: Cancer Relation: Mother Age of Onset: (Not Specified) Problem: Colon Cancer Relation: Mother Age of Onset: (Not Specified) Problem: Lymphoma Relation: Mother Age of Onset: (Not Specified) Problem: Hypertension Relation: Father Age of Onset: (Not Specified) Problem: Diabetes Relation: Father Age of Onset: (Not Specified) Problem: Hypertension Relation: Sister Age of Onset: (Not Specified) Problem: Parkinson s Disease Relation: Maternal Grandmother Age of Onset: (Not Specified) Problem: Lung Cancer Relation: Paternal Grandmother Age of Onset: (Not Specified) Problem: Stroke Relation: Paternal Grandfather Age of Onset: (Not Specified) Social History Tobacco Use Smoking status: Never Smokeless tobacco: Never Vaping Use Vaping Use: Never used Substance Use Topics Alcohol use: Yes Drug use: Not Currently Allergies and Medications ALLERGIES Allergen Reactions Bactrim [Sulfametho* Rash alcohol swabs Apply 1 Each to affected area one time a week. Oral Medication Containers (SHARPS CONTAINER) misc 1 Container as directed. KRILL OIL ORAL Take by mouth twice daily. amLODIPine (NORVASC) 5 mg tablet Take 5 mg by mouth once daily. multivitamin with minerals (ONE-A-DAY 50 PLUS ORAL) Take by mouth once daily. aspirin 81 mg cap Take by mouth once daily. Exam Vital Signs BP 127/73 Pulse 78 Temp (Src) 98.2 (Temporal) Resp 18 Ht 5' 10.236 (1.78m) Wt 182 lb (82.6kg) SpO2 100% BMI 25.94 kg/(m^2). Performance Status Karnofsky Scale:100 - Normal, no complaints, no evidence of disease. ECOG/Zubrod Performance Scale: 0- Fully active, able to carry on all pre-disease performance w/o restriction. Examination General Appearance: Well appearing, alert, in no acute distress, well-hydrated, well nourished. Skin: Skin color, texture, turgor normal, no suspicious rashes or lesions HEENT: Anicteric sclera Respiratory: Lungs clear to auscultation. No wheezing, rhonchi, rales Heart: RRR without murmur Abdomen: Abdomen soft, non-tender. Bowel sounds normal. No masses, spleen tip measures 0 cm below the left costal margin at the midclavicular line. No hepatomegaly. Extremeties: No deformities, edema Muskuloskeletal: No joint swelling Objective Data Labs and Imaging Reviewed outside records provided prior to this visit and those in [facility]. documented in this encounterW[facility]10[facility] History of Present illness Narrative* Hannah Lyons RN - 12/03/2021 1:43 PM EDTSummary: PTG 1Z21/21-283 End of Part 2 week 41/Part 3 cycle 1 day 1 visit Title:A Phase 2 Study of the Hepcidin Mimetic PTG-300 in Patients with Phlebotomy-Requiring Polycythemia Vera Consent expiration 05/29/2021 Screening date: 02/12/2021 Screening #: [id number] Part 1 week 1: 02/26/2021 Part 2 week 29: 09/10/2021 Patient is here today for End of Part 2 week 41/Part 3 cycle 1 day 1 visit for the PTG 1Z21 Trial, IRB# [id number]. PE completed by Delfina Graves CNP Patient is a Male with PV. Patient is willing and able to comply with the protocol for the durationof the study including undergoing treatment and scheduled visits and examinations. Pt here with his . No phlebotomies needed since last visit. Pt denies headaches. Pt states injection site reaction only occurred with firmness at the site. Pt denies redness or swelling with the last 4 week injections. No changes in medications. Pt reports intermittent red bumps to his axilla that last a couple of weeks and then resolve on their own but then recur. Denies the bumps are painful but they are irritated. Delfina Graves CNP completed a skin assessment. Pt to follow up with patcher. Pt verbalized understanding. Patient does continues to meet parameters to proceed with therapy. Concomitant medications reviewed per protocol: yes Changes per patient: No Quality of life questionnaire completed per protocol / CGIC: Yes Clinical trial labs completed per protocol: Yes VS completed per protocol: Yes ECO EKG: Screening QTcF 414 ms. Week 13 QTcF 427 ms Week 29 part 2 QTcF 425 ms Week 41 Part 2/Part 3 C1D1 QTcF [address]: completed 12/03/2021 Spleen: 0 cm MPN-SAF (MPN-10) TSS: Perameter Score (0 if absent to 10 if worst imaginable) In the past 24 hours: Fatigue 0 In the past 7 days: Early satiety 0 Abdominal pain (and discomfort) 0 Inactivity 0 Concentration 0 Night sweats 1 Pruritus 1 Diffuse Bone pain (not joint pain/arthritis) 0 Fever (>100 F, 10 = daily) 0 Weight loss (or gain) in past 6 months 0 Overall QoL 0 Enrique WILLINGHAM et alJ Clin Oncol 2012;30:[id number]. PAST MEDICAL HISTORY Diagnosis Date Status/Active Issues Elevated prostate specific antigen (PSA) 09/2020 Controlled Hypertension 10/2020 Controlled with medication REYMUNDO (obstructive sleep apnea) ~2018 Uncontrolled/does not use CPAP Polycythemia Vera 09/2020 Uncontrolled Seasonal allergic rhinitis due to pollen *greater than 30 years Controlled with medication DVT, left upper arm after clavicle repair 2001 Lump to right side of neck, *pt reported-lypoma?? 2016 2015 PAST SURGICAL HISTORY Procedure Laterality Date CLAVICLE LEFT REPAIR 2001 COLONOSCOPY 2015 DIAGNOSTIC ARTHROSCOPY KNEE Right ~2006 Inguinal hernia repair ~1979 INGUINAL HERNIA MESH REPAIR HX ~1998 REMOVE TONSILS/ADENOIDS,<12 Y/O ~ Social history: Smoking status: nonsmoker ETOH intake: Drinks on average 1-2 times per week, 2 rum and cokes. Denies recreational drug use. 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 HTN 10/2020 multivitamin with minerals (ONE-A-DAY 50 PLUS ORAL) 1 tab PO daily Health *greater than 8 years aspirin 81 mg cap 81 mg PO daily Heart/PV 2019 Kenalog injection 60 mg IM twice a year Seasonal allergies ~1989 Zithromax 500 mg po first day and 250 mg daily for 4 days Sinus congestion ~03/11/2021 Stopped 03/15/2021 Flonase 2 sprays in each nostril daily Sinus congestion ~03/11/2021 Stopped 03/15/2021 Sulfacetamide eye gtts, 10% 2 gtts in each eye for QID Eye infection ~03/11/2021 Stopped ~03/17/2021 Tylenol 1 gram PO TID PRN Headaches 03/02/2021 Hydrocortiscone cream, OTC Apply to area BID Injection site reaction 03/19/2021 Prior PV therapy: Phlebotomies 11/2020 to present Baseline toxicities per CTCAE v. 5: All predate therapy, are chronic conditions and will not be actively followed unless they worsen during the clinical trial. Pruritus Grade 1. Baseline. Start date: 12/2020. Resolve date: ongoing. Drugs to treat: none. Outcome: present intermittently Night sweats Grade 1. Baseline. Start date: 2018. Resolve date: ongoing. Drugs to treat: none. Outcome: present intermittently Bone pain (legs)Grade 1. Baseline. Start date: 12/2020. Resolve date: ongoing. Drugs to treat: none. Outcome: present intermittently Lump to right side of neck (lypoma?) Grade 1. Baseline. Start date: 2015. Resolve date: ongoing. Drugs to treat: none. Outcome: still present Toxicities per CTCAE v.5: 12/03/2021 Anemia Grade 1. RELATED to PTG-300. Start date: 03/13/2021. Resolve date: ongoing. Drugs to treat: none. Outcome: still present Injection site reaction (firmness) Grade 1. RELATED to PTG-300. Start date: 04/23/2021. Resolve date: ongoing with each weekly injection. Drugs to treat: hydrocortisone, ice. Outcome: present intermittently with each injection of PTG- 300 and resolves 6-7 days after the injection Injection site reaction (erythema, swelling) Grade 1. RELATED to PTG-300. Start date: 04/23/2021. Resolve date: ongoing with each weekly injection. Drugs to treat: hydrocortisone, ice. Outcome: present intermittently with each injection of PTG-300 and resolves 3-4 days after the injection Injection site reaction (bruising) Grade 1. RELATED. Start date: 03/26/2021. Resolve date: ongoing. Drugs to treat: none. Outcome: present intermittently at injection sites Fatigue Grade 1. UNRELATED. Start date: 06/2021. Resolve date: ongoing. Drugs to treat: none. Outcome: still present Cold feet bilaterally Grade 1. UNRELATED. Start date:~08/21/2021. Resolve date: ongoing. Drugs to treat: none. Outcome: present intermittently Red spots to bilateral axilla (folliculitis?) Grade 1. UNRELATED. Start date: 10/2021. Resolve date:ongoing. Drugs to treat: none. Outcome: still present Resolved: Headaches Grade 2. POSSIBLY RELATED. Start date: 03/02/2021. Resolve date: 03/24/2021. Drugs to treat:flonase, zithromax, tylenol. Outcome: resolved Sinus congestion Grade 2. UNRELATED. Start date: 03/06/2021. Resolve date: 03/24/2021. Drugs to treat:flonase, zithromax, tylenol. Outcome: resolved Injection site reaction (erythema, itching, swelling, firmness) Grade 1. RELATED. Start date: 03/05/2021. Resolve date: 03/09/2021. Drugs to treat: none. Outcome: resolved Injection site reaction (erythema, itching, swelling, firmness) Grade 1. RELATED. Start date: 03/12/2021. Resolve date: 03/17/2021. Drugs to treat: none. Outcome: resolved Injection site reaction (erythema, itching, swelling, firmness) Grade 1. RELATED. Start date: 03/19/2021. Resolve date: 03/21/2021. Drugs to treat: ice, hydrocortisone cream. Outcome: resolved Eye infection Grade 2. UNRELATED. Start date: ~03/11/2021. Resolve date: ~03/17/2021. Drugs to treat: sulfacetamide tts. Outcome: resolved Injection site reaction (erythema, itching, swelling, bruising, firmness) Grade 1. RELATED. Start date: 03/26/2021. Resolve date: 04/02/2021. Drugs to treat: ice. Outcome: resolved Injection site reaction (erythema, itching, swelling, firmness) Grade 1. RELATED. Start date: 04/02/2021. Resolve date: 04/09/2021. Drugs to treat: ice.. Outcome: resolved Injection site reaction (erythema, itching, swelling, firmness) Grade 1. RELATED. Start date: 04/09/2021. Resolve date: 04/16/2021. Drugs to treat: ice. Outcome: resolved Injection site reaction (erythema, itching, swelling, firmness) Grade 1. RELATED. Start date: 04/16/2021. Resolve date: 04/23/2021. Drugs to treat: ice Outcome:resolved Ankle swelling Grade 1. UNRELATED. Start date: 04/09/2021. Resolve date: 04/11/2021. Drugs to treat: none. Outcome: resolved Dosing: Reviewed administration directions for giving a SC injection and injection sites. Discussedrotation of injection sites and to not use the same site as the previous week. Pt verbalized understanding. Pt to self administered 60 mg PTG-300 SC injection at home today. Pt reports are better days to dose for his schedule. Patient states he feels comfortable administering injections at home. Patient has research RN contact information and hem/onc fellow torsion spring coiling machine setter phone number. 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 Patient aware to call the research team for injection site reactions that do not resolve in 24 hours. Pt aware tylenol can be taken for injection site pain and may use ice. OTC Hydrocortisone cream may be used also. Pt verbalized understanding. Reviewed study drug log. Pt given a new study log. Discussed storage of study medication in refrigerator and can be room temperature for 12 hours. Pt is using the soft sided cooler bag and instructedto keep freezer packs in the freezer and bring back bag and ice packs with him to next visit in order to transport medication home. Patient verbalized understanding. Returned: 4 empty cartons of 40 mg dose of PTG-300/placebo and 4 empty cartons of 20 mg dose of PTG-300/placebo . The count is accurate. When new supply of drug is given patient instructed to return the diary and the empty cartons at next study visit. Use of the study medication diary and dosing instructions were reviewed with the patient Dispensed: The patient was given 8 syringes of PTG-300. Four at 40 mg each and four at 20 mg each as dispensed by the pharmacy. 20 mg Syringe #s: [id number], [id number], G3938, [id number] 40 mg Syringe #s: [id number], [id number], [id number],[id number] The provider has reviewed and verified the information included within this note, including AE information Patient understands that the nurse or MD must be called prior to taking any new medications as wellas stopping any medications. Patient also understands to call nurse or MD should there any new medical issues arise and/or goes to the hospital for any reason. Patient is aware to monitor temperatureand to call and/or go to the nearest emergency room for temperatures of 100.4 or greater. Patient knows to call in the interim for any questions or concerns. Patient has contact information for Hannah Lyons RN Research Nurse and Dr. Ventura, along with the 24 hour On-Call number for the On-Call Oncology Fellow ([phone]). Patient understands that this participation is voluntary and may withdrawal at any time during the trial. Patient aware to RTC in 4 weeks for Part 3 Cycle 2 ay 1 of PTG 1Z21. CAROL Zambrano, RN documented in this encounterW[facility]09-22-[facility] History of Present illness Narrative* Meghan Graves APRN.CHAMFERING MACHINE OPERATOR - 11/05/2021 1:00 PM EDT Some elements copied from Elizabeth dunn's note on 10/08/2021, the elements have been updated and all reflect current decision making from today, 11/05/2021. [facility] Clinical Note Assessment and Plan In summary: Mr. Leos is a 56 year old gentleman with polycythemia vera. Problem List Polycythemia vera He also has a history of erythrocytosis. He also has a history of elevated PSA, HTN, and REYMUNDO (not on CPAP). He did have a left upper arm DVT in 1999 was provoked by a left clavicle surgery. He had anelevated hemoglobin as far back as August 2013 (but it was normal again in January of 2015). In September of 2020 he had a hemoglobin of 18.8 g/dL. Subsequent erythropoietin testing was 1.1 mIU/mL. Testing of the peripheral blood on 10/16/2020 was negative for BCR-ABL, but positive for JAK2 V617F (VAF 47%). He started treatment with PTG-300 on 02/26/2021 (phse II study). He is week 37 today. Since startinghe has not required phlebotomies. He is overall doing quite well. No pain today. Appetite has been good. Weight is overall stable. Follow up per study. Meghan Graves APRN.CHAMFERING MACHINE OPERATOR Visit Details Past Medical History He is here today for follow up. Overall he is feeling well and offers no new complaints. His PLT are stable in the mid 800's. He has noticed red spots on either side of his nose that turn into hard areas under the skin. He has noticed this happening intermittently since being out in the sun over the summer. Has not required phlebotomy since starting on study. MPN-SAF (MPN-10) TSS: Perameter Score (0 if absent to 10 if worst imaginable) In the past 24 hours: Fatigue 0 In the past 7 days: Early satiety 0 Abdominal pain (and discomfort) 0 Inactivity 0 Concentration 0 Night sweats 0 Pruritus 0 Diffuse Bone pain (not joint pain/arthritis) 0 Fever (>100 F, 10 = daily) 0 Weight loss (or gain) in past 6 months 0 Overall QoL 0 Enrique RM et alJ Clin Oncol 2012;30:0225-0175. Review of Systems PAIN ASSESSMENT: Negative for pain, history of chronic pain, or current treatment for a chronic pain condition GENERAL: No weight loss, malaise or fevers. HEENT: Positive forsignificant headaches, now resolved. No changes in hearing or vision, no nose bleeds or other nasal problems RESPIRATORY: Negative for cough, hemoptysis, wheezing or shortness of breath CARDIOVASCULAR: Negative for chest pain, leg swelling or palpitations. GI: no nausea, vomiting, or diarrhea : No history of dysuria, frequency or incontinence. MUSCULOSKELETAL: Negative for joint pain, back pain or muscle pain. SKIN: Negative for lesions, rash, Positive for intermittent itching to scalp and face, unchanged. HEMATOLOGY/LYMPHOLOGY: Negative for prolonged bleeding, bruising easily or swollen nodes. NEURO: No history of headaches, syncope, paralysis, seizures or tremors Adjunct Histories PAST MEDICAL HISTORY Diagnosis Date Elevated prostate specific antigen (PSA) Hypertension REYMUNDO (obstructive sleep apnea) Polycythemia Seasonal allergic rhinitis due to pollen PAST SURGICAL HISTORY Procedure Laterality Date ARTHROSCOPY KNEE DIAGNOSTIC W/WO SYNOVIAL BX SPX Right CLAVICLE LEFT COLONOSCOPY 2015 INGUINAL HERNIA REPAIR HX TONSILLECTOMY & ADENOIDECTOMY <AGE 12 Family History Reviewed Including Cardiac Diseases, Psychiatric Diseases, & Substance Abuse Problem: Hypertension Relation: Mother Age of Onset: (Not Specified) Problem: Heart disease Relation: Mother Age of Onset: (Not Specified) Problem: Cancer Relation: Mother Age of Onset: (Not Specified) Problem: Colon Cancer Relation: Mother Age of Onset: (Not Specified) Problem: Lymphoma Relation: Mother Age of Onset: (Not Specified) Problem: Hypertension Relation: Father Age of Onset: (Not Specified) Problem: Diabetes Relation: Father Age of Onset: (Not Specified) Problem: Hypertension Relation: Sister Age of Onset: (Not Specified) Problem: Parkinson s Disease Relation: Maternal Grandmother Age of Onset: (Not Specified) Problem: Lung Cancer Relation: Paternal Grandmother Age of Onset: (Not Specified) Problem: Stroke Relation: Paternal Grandfather Age of Onset: (Not Specified) Social History Tobacco Use Smoking status: Never Smokeless tobacco: Never Vaping Use Vaping Use: Never used Substance Use Topics Alcohol use: Yes Drug use: Not Currently Allergies and Medications ALLERGIES Allergen Reactions Bactrim [Sulfametho* Rash alcohol swabs Apply 1 Each to affected area one time a week. Oral Medication Containers (SHARPS CONTAINER) misc 1 Container as directed. KRILL OIL ORAL Take by mouth twice daily. amLODIPine (NORVASC) 5 mg tablet Take 5 mg by mouth once daily. multivitamin with minerals (ONE-A-DAY 50 PLUS ORAL) Take by mouth once daily. aspirin 81 mg cap Take by mouth once daily. Exam Vital Signs BP 129/61 Pulse 88 Temp (Src) 98.2 (Temporal) Resp 16 Ht 5' 8.465 (1.74m) Wt 183 lb 12.8oz (83.4kg) SpO2 100% BMI 27.57 kg/(m^2). Performance Status Karnofsky Scale:100 - Normal, no complaints, no evidence of disease. ECOG/Zubrod Performance Scale: 0- Fully active, able to carry on all pre-disease performance w/o restriction. Examination General Appearance: Well appearing, alert, in no acute distress, well-hydrated, well nourished. Skin: Skin color, texture, turgor normal, no suspicious rashes or lesions HEENT: Anicteric sclera Respiratory: Lungs clear to auscultation. No wheezing, rhonchi, rales Heart: RRR without murmur Abdomen: Abdomen soft, non-tender. Bowel sounds normal. No masses, spleen tip measures 0 cm below the left costal margin at the midclavicular line. No hepatomegaly. Extremeties: No deformities, edema Muskuloskeletal: No joint swelling Objective Data Labs and Imaging Reviewed outside records provided prior to this visit and [facility]. documented in this encounterW[facility] Nurse Note* Mil Diego LPN - 11/05/2021 12:57 PM EDT Additional intake questions: Has the patient had fever, nausea, vomiting, diarrhea, constipation, fatigue for > 1 week? No Does the patient have a decreased appetite? No Does patient want to see a Service Order Expediter? No (yes to any of above refer patient to schedulers for dietitian appointment) ) Does patient have any new or increased numbness or tingling of extremities? No Is patient interested in fertility information? NA Does patient need any prescription refills? No Does patient have an advanced directive in place? No, Patient referred to Resource Center documented in this encounterW[facility]08-25-2022 History of Present illness Narrative* Hannah Lyons RN - 10/08/2021 2:02 PM EDTSummary: PTG 1Z21/21-283 Part 2 week 33 visit Title:A Phase 2 Study of the Hepcidin Mimetic PTG-300 in Patients with Phlebotomy-Requiring Polycythemia Vera Consent expiration 05/29/2021 Screening date: 02/12/2021 Screening #: [id number] Part 1 week 1: 02/26/2021 Part 2 week 29: 09/10/2021 Patient is here today for Part 2 week 33 visit for the PTG 1Z21 Trial, IRB# [id number]. Patient has signed Informed Consent on 02/12/2021, prior to any study related procedures. Copy given to patient. Patient had labs drawn then met with Sindy Dunn CNP and research nurse. PE completed by Erasmo Dunn CNP Patient is a Male with PV. Patient is willing and able to comply with the protocol for the durationof the study including undergoing treatment and scheduled visits and examinations. Pt here with his . No phlebotomies needed since last visit. Pt denies headaches. Pt states injection site reaction only occurred with firmness at the site. Pt denies redness or swelling with the last 4 week injections. Patient does continues to meet parameters to proceed with therapy. Concomitant medications reviewed per protocol: yes Changes per patient: No Quality of life questionnaire completed per protocol / CGIC: N/A Clinical trial labs completed per protocol: Yes VS completed per protocol: Yes ECO EKG: Screening QTcF 414 ms. Week 13 QTcF 427 ms Week 29 part [address]: completed 09/10/2021 Spleen: 0 cm MPN-SAF (MPN-10) TSS: Perameter Score (0 if absent to 10 if worst imaginable) In the past 24 hours: Fatigue 1 In the past 7 days: Early satiety 0 Abdominal pain (and discomfort) 0 Inactivity 0 Concentration 0 Night sweats 0 Pruritus 0 Diffuse Bone pain (not joint pain/arthritis) 0 Fever (>100 F, 10 = daily) 0 Weight loss (or gain) in past 6 months 0 Overall QoL 0 Enrique WILLINGHAM et alJ Clin Oncol 2012;30:[id number]. PAST MEDICAL HISTORY Diagnosis Date Status/Active Issues Elevated prostate specific antigen (PSA) 09/2020 Controlled Hypertension 10/2020 Controlled with medication REYMUNDO (obstructive sleep apnea) ~2018 Uncontrolled/does not use CPAP Polycythemia Vera 09/2020 Uncontrolled Seasonal allergic rhinitis due to pollen *greater than 30 years Controlled with medication DVT, left upper arm after clavicle repair 2001 Lump to right side of neck, *pt reported-lypoma?? 2016 2015 PAST SURGICAL HISTORY Procedure Laterality Date CLAVICLE LEFT REPAIR 2001 COLONOSCOPY 2014 DIAGNOSTIC ARTHROSCOPY KNEE Right ~2006 Inguinal hernia repair ~1979 INGUINAL HERNIA MESH REPAIR HX ~1998 REMOVE TONSILS/ADENOIDS,<12 Y/O ~ Social history: Smoking status: nonsmoker ETOH intake: Drinks on average 1-2 times per week, 2 rum and cokes. Denies recreational drug use. 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 HTN 10/2020 multivitamin with minerals (ONE-A-DAY 50 PLUS ORAL) 1 tab PO daily Health *greater than 8 years aspirin 81 mg cap 81 mg PO daily Heart/PV 2018 Kenalog injection 60 mg IM twice a year Seasonal allergies ~1989 Zithromax 500 mg po first day and 250 mg daily for 4 days Sinus congestion ~03/11/2021 Stopped 03/15/2021 Flonase 2 sprays in each nostril daily Sinus congestion ~03/11/2021 Stopped 03/15/2021 Sulfacetamide eye gtts, 10% 2 gtts in each eye for QID Eye infection ~03/11/2021 Stopped ~03/17/2021 Tylenol 1 gram PO TID PRN Headaches 03/02/2021 Hydrocortiscone cream, OTC Apply to area BID Injection site reaction 03/19/2021 Prior PV therapy: Phlebotomies 11/2020 to present Baseline toxicities per CTCAE v. 5: All predate therapy, are chronic conditions and will not be actively followed unless they worsen during the clinical trial. Pruritus Grade 1. Baseline. Start date: 12/2020. Resolve date: ongoing. Drugs to treat: none. Outcome: present intermittently Night sweats Grade 1. Baseline. Start date: 2018. Resolve date: ongoing. Drugs to treat: none. Outcome: present intermittently Bone pain (legs)Grade 1. Baseline. Start date: 12/2020. Resolve date: ongoing. Drugs to treat: none. Outcome: present intermittently Lump to right side of neck (lypoma?) Grade 1. Baseline. Start date: 2015. Resolve date: ongoing. Drugs to treat: none. Outcome: still present Toxicities per CTCAE v.5: 10/08/2021 Anemia Grade 1. RELATED to PTG-300. Start date: 03/13/2021. Resolve date: ongoing. Drugs to treat: none. Outcome: still present Injection site reaction (firmness) Grade 1. RELATED to PTG-300. Start date: 04/23/2021. Resolve date: ongoing with each weekly injection. Drugs to treat: hydrocortisone, ice. Outcome: present intermittently with each injection of PTG- 300 and resolves 6-7 days after the injection Injection site reaction (erythema, swelling) Grade 1. RELATED to PTG-300. Start date: 04/23/2021. Resolve date: ongoing with each weekly injection. Drugs to treat: hydrocortisone, ice. Outcome: present intermittently with each injection of PTG-300 and resolves 3-4 days after the injection Injection site reaction (bruising) Grade 1. RELATED. Start date: 03/26/2021. Resolve date: ongoing. Drugs to treat: none. Outcome: present intermittently at injection sites Fatigue Grade 1. UNRELATED. Start date: 06/2021. Resolve date: ongoing. Drugs to treat: none. Outcome: still present Cold feet bilaterally Grade 1. UNRELATED. Start date:~08/21/2021. Resolve date: ongoing. Drugs to treat: none. Outcome: present intermittently Resolved: Headaches Grade 2. POSSIBLY RELATED. Start date: 03/02/2021. Resolve date: 03/24/2021. Drugs to treat:flonase, zithromax, tylenol. Outcome: resolved Sinus congestion Grade 2. UNRELATED. Start date: 03/06/2021. Resolve date: 03/24/2021. Drugs to treat:flonase, zithromax, tylenol. Outcome: resolved Injection site reaction (erythema, itching, swelling, firmness) Grade 1. RELATED. Start date: 03/05/2021. Resolve date: 03/09/2021. Drugs to treat: none. Outcome: resolved Injection site reaction (erythema, itching, swelling, firmness) Grade 1. RELATED. Start date: 03/12/2021. Resolve date: 03/17/2021. Drugs to treat: none. Outcome: resolved Injection site reaction (erythema, itching, swelling, firmness) Grade 1. RELATED. Start date: 03/19/2021. Resolve date: 03/21/2021. Drugs to treat: ice, hydrocortisone cream. Outcome: resolved Eye infection Grade 2. UNRELATED. Start date: ~03/11/2021. Resolve date: ~03/17/2021. Drugs to treat: sulfacetamide tts. Outcome: resolved Injection site reaction (erythema, itching, swelling, bruising, firmness) Grade 1. RELATED. Start date: 03/26/2021. Resolve date: 04/02/2021. Drugs to treat: ice. Outcome: resolved Injection site reaction (erythema, itching, swelling, firmness) Grade 1. RELATED. Start date: 04/02/2021. Resolve date: 04/09/2021. Drugs to treat: ice.. Outcome: resolved Injection site reaction (erythema, itching, swelling, firmness) Grade 1. RELATED. Start date: 04/09/2021. Resolve date: 04/16/2021. Drugs to treat: ice. Outcome: resolved Injection site reaction (erythema, itching, swelling, firmness) Grade 1. RELATED. Start date: 04/16/2021. Resolve date: 04/23/2021. Drugs to treat: ice Outcome:resolved Ankle swelling Grade 1. UNRELATED. Start date: 04/09/2021. Resolve date: 04/11/2021. Drugs to treat: none. Outcome: resolved Dosing: Reviewed administration directions for giving a SC injection and injection sites. Discussedrotation of injection sites and to not use the same site as the previous week. Pt verbalized understanding. Pt to self administered 60 mg PTG-300 SC injection at home on ,10/08/2021. Pt reports are better days to dose for his schedule. Patient states he feels comfortable administering injections at home. 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 Patient aware to call the research team for injection site reactionsthat do not resolve in 24 hours. Pt aware tylenol can be taken for injection site pain and may use ice. OTC Hydrocortisone cream may be used also. Pt verbalized understanding. Reviewed study drug log. Pt given a new study log. Discussed storage of study medication in refrigerator and can be room temperature for 12 hours. Pt is using the soft sided cooler bag and instructedto keep freezer packs in the freezer and bring back bag and ice packs with him to next visit in order to transport medication home. Patient verbalized understanding. Returned: 4 empty cartons of 40 mg dose of PTG-300 and 4 empty cartons of 20 mg dose of PTG-300. The count is accurate. When new supply of drug is given patient instructed to return the diary and theempty cartons at next study visit. Use of the study medication diary and dosing instructions were reviewed with the patient Dispensed: The patient was given 8 syringes of PTG-300 by ALEXANDRO London,BSN at 1510. Four at 40 mg each and four at 20 mg each as dispensed by the pharmacy. 20 mg Syringe #s: [id number], [id number], [id number], [id number] 40 mg Syringe #s: [id number], [id number], [id number], [id number] The provider has reviewed and verified the information included within this note, including AE information Patient understands that the nurse or MD must be called prior to taking any new medications as wellas stopping any medications. Patient also understands to call nurse or MD should there any new medical issues arise and/or goes to the hospital for any reason. Patient is aware to monitor temperatureand to call and/or go to the nearest emergency room for temperatures of 100.4 or greater. Patient knows to call in the interim for any questions or concerns. Patient has contact information for Hannah Lyons RN Research Nurse and Dr. Ventura, along with the 24 hour On-Call number for the On-Call Oncology Fellow ([phone]). Patient understands that this participation is voluntary and may withdrawal at any time during the trial. Patient aware to RTC in 4 weeks for Part 2 Week 37 of PTG 1Z21. CAROL Zambrano, RN documented in this encounterWvumed[facility]08-25-2022 History of Present illness Narrative* Elizabeth Dunn APRN.CHAMFERING MACHINE OPERATOR - 10/08/2021 1:21 PM EDT Some elements copied from Dr. Ventura' note on 09/10/21, the elements have been updated and reflect current decision making from today 10/08/21. [facility] Clinical Note Assessment and Plan In summary: Mr. Leos is a 56 year old gentleman with polycythemia vera. Problem List Polycythemia vera He also has a history of erythrocytosis. He also has a history of elevated PSA, HTN, and REYMUNDO (not on CPAP). He did have a left upper arm DVT in 1999 was provoked by a left clavicle surgery. He had anelevated hemoglobin as far back as August 2013 (but it was normal again in January of 2015). In September of 2020 he had a hemoglobin of 18.8 g/dL. Subsequent erythropoietin testing was 1.1 mIU/mL. Testing of the peripheral blood on 10/16/2020 was negative for BCR-ABL, but positive for JAK2 V617F (VAF 47%). He started treatment with PTG-300 on 02/26/2021 (phse II study). He is week 33 today. Since startinghe has not required phlebotomies. He is overall doing quite well. No pain today. Appetite has been good. Weight is overall stable. Follow up per study. I Visit Details Past Medical History He is here today for follow up. Overall he is feeling well and offers no new complaints. His PLT are stable in the high 800's. No new issues since his last visit. Has not required phlebotomy since starting on study. MPN-SAF (MPN-10) TSS: Perameter Score (0 if absent to 10 if worst imaginable) In the past 24 hours: Fatigue 1 In the past 7 days: Early satiety 0 Abdominal pain (and discomfort) 0 Inactivity 0 Concentration 0 Night sweats 0 Pruritus 0 Diffuse Bone pain (not joint pain/arthritis) 0 Fever (>100 F, 10 = daily) 0 Weight loss (or gain) in past 6 months 0 Overall QoL 0 Enrique WILLINGHAM et alJ Clin Oncol 2012;30:8341-4043. Review of Systems PAIN ASSESSMENT: Negative for pain, history of chronic pain, or current treatment for a chronic pain condition GENERAL: No weight loss, malaise or fevers. HEENT: Positive forsignificant headaches, now resolved. No changes in hearing or vision, no nose bleeds or other nasal problems RESPIRATORY: Negative for cough, hemoptysis, wheezing or shortness of breath CARDIOVASCULAR: Negative for chest pain, leg swelling or palpitations. GI: no nausea, vomiting, or diarrhea : No history of dysuria, frequency or incontinence. MUSCULOSKELETAL: Negative for joint pain, back pain or muscle pain. SKIN: Negative for lesions, rash, Positive for intermittent itching to scalp and face, unchanged. HEMATOLOGY/LYMPHOLOGY: Negative for prolonged bleeding, bruising easily or swollen nodes. NEURO: No history of headaches, syncope, paralysis, seizures or tremors Adjunct Histories PAST MEDICAL HISTORY Diagnosis Date Elevated prostate specific antigen (PSA) Hypertension REYMUNDO (obstructive sleep apnea) Polycythemia Seasonal allergic rhinitis due to pollen PAST SURGICAL HISTORY Procedure Laterality Date ARTHROSCOPY KNEE DIAGNOSTIC W/WO SYNOVIAL BX SPX Right CLAVICLE LEFT COLONOSCOPY 2014 INGUINAL HERNIA REPAIR HX TONSILLECTOMY & ADENOIDECTOMY <AGE 12 Family History Reviewed Including Cardiac Diseases, Psychiatric Diseases, & Substance Abuse Problem: Hypertension Relation: Mother Age of Onset: (Not Specified) Problem: Heart disease Relation: Mother Age of Onset: (Not Specified) Problem: Cancer Relation: Mother Age of Onset: (Not Specified) Problem: Colon Cancer Relation: Mother Age of Onset: (Not Specified) Problem: Lymphoma Relation: Mother Age of Onset: (Not Specified) Problem: Hypertension Relation: Father Age of Onset: (Not Specified) Problem: Diabetes Relation: Father Age of Onset: (Not Specified) Problem: Hypertension Relation: Sister Age of Onset: (Not Specified) Problem: Parkinson s Disease Relation: Maternal Grandmother Age of Onset: (Not Specified) Problem: Lung Cancer Relation: Paternal Grandmother Age of Onset: (Not Specified) Problem: Stroke Relation: Paternal Grandfather Age of Onset: (Not Specified) Social History Tobacco Use Smoking status: Never Smokeless tobacco: Never Vaping Use Vaping Use: Never used Substance Use Topics Alcohol use: Yes Drug use: Not Currently Allergies and Medications ALLERGIES Allergen Reactions Bactrim [Sulfametho* Rash alcohol swabs Apply 1 Each to affected area one time a week. Oral Medication Containers (SHARPS CONTAINER) misc 1 Container as directed. KRILL OIL ORAL Take by mouth twice daily. amLODIPine (NORVASC) 5 mg tablet Take 5 mg by mouth once daily. multivitamin with minerals (ONE-A-DAY 50 PLUS ORAL) Take by mouth once daily. aspirin 81 mg cap Take by mouth once daily. Exam Vital Signs BP 127/61 Pulse 76 Temp (Src) 97.5 (Oral) Resp 16 Ht 5' 8.425 [shoes off[ (1.74m) Wt 182 lb 9.6 oz (82.8kg) SpO2 99% BMI 27.42 kg/(m^2). Performance Status Karnofsky Scale:100 - Normal, no complaints, no evidence of disease. ECOG/Zubrod Performance Scale: 0- Fully active, able to carry on all pre-disease performance w/o restriction. Examination General Appearance: Well appearing, alert, in no acute distress, well-hydrated, well nourished. Skin: Skin color, texture, turgor normal, no suspicious rashes or lesions HEENT: Anicteric sclera Respiratory: Lungs clear to auscultation. No wheezing, rhonchi, rales Heart: RRR without murmur Abdomen: Abdomen soft, non-tender. Bowel sounds normal. No masses, spleen tip measures 0 cm below the left costal margin at the midclavicular line. No hepatomegaly. Extremeties: No deformities, edema Muskuloskeletal: No joint swelling Objective Data Labs and Imaging Reviewed outside records provided prior to this visit and those [facility]. documented in this encounterW[facility]08-25-2022 Nurse Note* Lashonda Mooney RN - 10/08/2021 1:15 PM EDT Additional intake questions: Has the patient had fever, nausea, vomiting, diarrhea, constipation, fatigue for > 1 week? No Does the patient have a decreased appetite? No Does patient want to see a Service Order Expediter? No (yes to any of above refer patient to schedulers for dietitian appointment) ) Does patient have any new or increased numbness or tingling of extremities? No Is patient interested in fertility information? No Does patient need any prescription refills? No Does patient have an advanced directive in place? No, Patient refused referral to Social Work or Resource Center Electronically Signed By: Lashonda Mooney RN documented in this encounterWvumedicine [facility]07-28-2022 History of Present illness Narrative* Kyleigh Rust RN - 09/10/2021 2:35 PM EDT Title:A Phase 2 Study of the Hepcidin Mimetic PTG-300 in Patients with Phlebotomy-Requiring Polycythemia Vera Consent expiration 05/29/2021 Screening date: 02/12/2021 Screening #: [id number] Part 1 week 1: 02/26/2021 Part 2 week 29: 09/10/2021 Patient is here today for Part 2 week 29 visit for the PTG 1Z21 Trial, IRB# [id number]. Patient has signed Informed Consent on 02/12/2021, prior to any study related procedures. Copy given to patient. Patient had labs drawn then met with Dr. Ventura and research nurse. PE completed by . Patient is a Male with PV. Patient is willing and able to comply with the protocol for the durationof the study including undergoing treatment and scheduled visits and examinations. Pt here with his . No phlebotomies needed since last visit. Pt denies headaches. Pt reports that his feet feel cold while he is sleeping at night that wakes him up. Pt continues to report swelling and firmness at the injection sites. Redness has been lessened by applying ice immediately after his injection. Patient does continues to meet parameters to proceed with therapy. Concomitant medications reviewed per protocol: yes Changes per patient: No Quality of life questionnaire completed per protocol / CGIC: yes Clinical trial labs completed per protocol: Yes VS completed per protocol: Yes ECO EKG: Screening QTcF 414 ms. Week 13 QTcF 427 ms Week 29 part [address] Q[address]: completed 09/10/2021 Spleen: 0 cm MPN-SAF (MPN-10) TSS: Perameter Score (0 if absent to 10 if worst imaginable) In the past 24 hours: Fatigue 1 In the past 7 days: Early satiety 0 Abdominal pain (and discomfort) 0 Inactivity 0 Concentration 0 Night sweats 0 Pruritus 0 Diffuse Bone pain (not joint pain/arthritis) 0 Fever (>100 F, 10 = daily) 0 Weight loss (or gain) in past 6 months 0 Overall QoL 0 Enrique RM et alJ Clin Oncol 2012;30:[id number]. PAST MEDICAL HISTORY Diagnosis Date Status/Active Issues Elevated prostate specific antigen (PSA) 09/2020 Controlled Hypertension 10/2020 Controlled with medication REYMUNDO (obstructive sleep apnea) ~2018 Uncontrolled/does not use CPAP Polycythemia Vera 09/2020 Uncontrolled Seasonal allergic rhinitis due to pollen *greater than 30 years Controlled with medication DVT, left upper arm after clavicle repair 2002 Lump to right side of neck, *pt reported-lypoma?? 2016 2016 PAST SURGICAL HISTORY Procedure Laterality Date CLAVICLE LEFT REPAIR 2001 COLONOSCOPY 2015 DIAGNOSTIC ARTHROSCOPY KNEE Right ~2006 Inguinal hernia repair ~1979 INGUINAL HERNIA MESH REPAIR HX ~1998 REMOVE TONSILS/ADENOIDS,<12 Y/O ~ Social history: Smoking status: nonsmoker ETOH intake: Drinks on average 1-2 times per week, 2 rum and cokes. Denies recreational drug use. 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 HTN 10/2020 multivitamin with minerals (ONE-A-DAY 50 PLUS ORAL) 1 tab PO daily Health *greater than 8 years aspirin 81 mg cap 81 mg PO daily Heart/PV 2018 Kenalog injection 60 mg IM twice a year Seasonal allergies ~1989 Zithromax 500 mg po first day and 250 mg daily for 4 days Sinus congestion ~03/11/2021 Stopped 03/15/2021 Flonase 2 sprays in each nostril daily Sinus congestion ~03/11/2021 Stopped 03/15/2021 Sulfacetamide eye gtts, 10% 2 gtts in each eye for QID Eye infection ~03/11/2021 Stopped ~03/17/2021 Tylenol 1 gram PO TID PRN Headaches 03/02/2021 Hydrocortiscone cream, OTC Apply to area BID Injection site reaction 03/19/2021 Prior PV therapy: Phlebotomies 11/2020 to present Baseline toxicities per CTCAE v. 5: All predate therapy, are chronic conditions and will not be actively followed unless they worsen during the clinical trial. Pruritus Grade 1. Baseline. Start date: 12/2020. Resolve date: ongoing. Drugs to treat: none. Outcome: present intermittently Night sweats Grade 1. Baseline. Start date: 2018. Resolve date: ongoing. Drugs to treat: none. Outcome: present intermittently Bone pain (legs)Grade 1. Baseline. Start date: 12/2020. Resolve date: ongoing. Drugs to treat: none. Outcome: present intermittently Lump to right side of neck (lypoma?) Grade 1. Baseline. Start date: 2015. Resolve date: ongoing. Drugs to treat: none. Outcome: still present Toxicities per CTCAE v.5: 09/10/2021 Anemia Grade 1. RELATED to PTG-300. Start date: 03/13/2021. Resolve date: ongoing. Drugs to treat: none. Outcome: still present Injection site reaction (firmness) Grade 1. RELATED to PTG-300. Start date: 04/23/2021. Resolve date: ongoing with each weekly injection. Drugs to treat: hydrocortisone, ice. Outcome: present intermittently with each injection of PTG- 300 and resolves 6-7 days after the injection Injection site reaction (erythema, swelling) Grade 1. RELATED to PTG-300. Start date: 04/23/2021. Resolve date: ongoing with each weekly injection. Drugs to treat: hydrocortisone, ice. Outcome: present intermittently with each injection of PTG-300 and resolves 3-4 days after the injection Injection site reaction (bruising) Grade 1. RELATED. Start date: 03/26/2021. Resolve date: ongoing. Drugs to treat: none. Outcome: present intermittently at injection sites Fatigue Grade 1. UNRELATED. Start date: 06/2021. Resolve date: ongoing. Drugs to treat: none. Outcome: still present Cold feet bilaterally Grade 1. UNRELATED. Start date:~08/21/2021. Resolve date: ongoing. Drugs to treat: none. Outcome: present intermittently Resolved: Headaches Grade 2. POSSIBLY RELATED. Start date: 03/02/2021. Resolve date: 03/24/2021. Drugs to treat:flonase, zithromax, tylenol. Outcome: resolved Sinus congestion Grade 2. UNRELATED. Start date: 03/06/2021. Resolve date: 03/24/2021. Drugs to treat:flonase, zithromax, tylenol. Outcome: resolved Injection site reaction (erythema, itching, swelling, firmness) Grade 1. RELATED. Start date: 03/05/2021. Resolve date: 03/09/2021. Drugs to treat: none. Outcome: resolved Injection site reaction (erythema, itching, swelling, firmness) Grade 1. RELATED. Start date: 03/12/2021. Resolve date: 03/17/2021. Drugs to treat: none. Outcome: resolved Injection site reaction (erythema, itching, swelling, firmness) Grade 1. RELATED. Start date: 03/19/2021. Resolve date: 03/21/2021. Drugs to treat: ice, hydrocortisone cream. Outcome: resolved Eye infection Grade 2. UNRELATED. Start date: ~03/11/2021. Resolve date: ~03/17/2021. Drugs to treat: sulfacetamide tts. Outcome: resolved Injection site reaction (erythema, itching, swelling, bruising, firmness) Grade 1. RELATED. Start date: 03/26/2021. Resolve date: 04/02/2021. Drugs to treat: ice. Outcome: resolved Injection site reaction (erythema, itching, swelling, firmness) Grade 1. RELATED. Start date: 04/02/2021. Resolve date: 04/09/2021. Drugs to treat: ice.. Outcome: resolved Injection site reaction (erythema, itching, swelling, firmness) Grade 1. RELATED. Start date: 04/09/2021. Resolve date: 04/16/2021. Drugs to treat: ice. Outcome: resolved Injection site reaction (erythema, itching, swelling, firmness) Grade 1. RELATED. Start date: 04/16/2021. Resolve date: 04/23/2021. Drugs to treat: ice Outcome:resolved Ankle swelling Grade 1. UNRELATED. Start date: 04/09/2021. Resolve date: 04/11/2021. Drugs to treat: none. Outcome: resolved Dosing: Reviewed administration directions for giving a SC injection and injection sites. Discussedrotation of injection sites and to not use the same site as the previous week. Pt verbalized understanding. Pt to self administered 60 mg PTG-300 SC injection at home on ,09/10/2021. Pt reports are better days to dose for his schedule. Patient states he feels comfortable administering injections at home. 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 Patient aware to call the research team for injection site reactionsthat do not resolve in 24 hours. Pt aware tylenol can be taken for injection site pain and may use ice. OTC Hydrocortisone cream may be used also. Pt verbalized understanding. Reviewed study drug log. Pt given a new study log. Discussed storage of study medication in refrigerator and can be room temperature for 12 hours. Pt is using the soft sided cooler bag and instructedto keep freezer packs in the freezer and bring back bag and ice packs with him to next visit in order to transport medication home. Patient verbalized understanding. Returned: 4 empty cartons of 40 mg dose of PTG-300 and 4 empty cartons of 20 mg dose of PTG-300. The count is accurate. When new supply of drug is given patient instructed to return the diary and theempty cartons at next study visit. Use of the study medication diary and dosing instructions were reviewed with the patient Dispensed: The patient was given 8 syringes of PTG-300 by ALEXANDRO London,BSN at 1510. Four at 40 mg each and four at 20 mg each as dispensed by the pharmacy. 20 mg Syringe #s: [id number], [id number], [id number], [id number] 40 mg Syringe #s: [id number], [id number], [id number], [id number] The provider has reviewed and verified the information included within this note, including AE information Patient understands that the nurse or MD must be called prior to taking any new medications as wellas stopping any medications. Patient also understands to call nurse or MD should there any new medical issues arise and/or goes to the hospital for any reason. Patient is aware to monitor temperatureand to call and/or go to the nearest emergency room for temperatures of 100.4 or greater. Patient knows to call in the interim for any questions or concerns. Patient has contact information for Hannah Lyons RN Research Nurse and Dr. Ventura, along with the 24 hour On-Call number for the On-Call Oncology Fellow ([phone]). Patient understands that this participation is voluntary and may withdrawal at any time during the trial. Patient aware to RTC in 4 weeks for Part 2 Week 33 of PTG 1Z21. Kyleigh A. Cinalli, RN,OCN documented in this encounterWvumed[facility]07-28-[facility] Nurse Note* Maricruz Costello RN - 09/10/2021 1:32 PM EDT Additional intake questions: Has the patient had fever, nausea, vomiting, diarrhea, constipation, fatigue for > 1 week? No Does the patient have a decreased appetite? No Does patient want to see a Service Order Expediter? No (yes to any of above refer patient to schedulers for dietitian appointment) ) Does patient have any new or increased numbness or tingling of extremities? No Is patient interested in fertility information? No Does patient need any prescription refills? No Does patient have an advanced directive in place? No, Patient referred to Resource Center Electronically Signed By: Maricruz Costello RN documented in this encounterWvumedicine [facility]07-28-2022 History of Present illness Narrative* RT Shorty(R) - 09/10/2021 1:00 PM EDT Radiology Service Progress Note PATIENT NAME: Anil Leos DATE OF SERVICE: September 10, 2021 TIME: 1:13 PM PATIENT IDENTITY VERIFICATION COMPLETED USING TWO (2) IDENTIFIERS: Name and Date of confirmedby patient verbally and Name and Date of confirmed by identification band. FALL SCREENING: Has the patient had 2 falls in the last year or 1 fall with injury or currently using an Ambulatory Assistive Device (Walker, Cane, Wheelchair, Crutches, etc.)? No PATIENT GENDER DATA: Male PATIENT RELEVANT IMPLANT DATA REVIEWED: Yes RADIOLOGY DEPARTMENT: CT; Exam(s) Completed: Abdomen PERIPHERAL IV DATA: Not applicable SIGNED BY: RT Ema(R) September 10, 2021 1:13 PM documented in this encounterWvumedicine [facility]07-28-2022 History of Present illness Narrative* Bryce Ventura MD - 09/10/2021 8:13 AM EDT All documentation from previous visit of 08/11/2021 was copied and pasted, documentation has been reviewed and edited as necessary for today's visit. [facility] Clinical Note Assessment and Plan In summary: Mr. Leos is a 56 year old gentleman with polycythemia vera. Problem List Polycythemia vera He also has a history of erythrocytosis. He also has a history of elevated PSA, HTN, and REYMUNDO (not on CPAP). He did have a left upper arm DVT in 1999 was provoked by a left clavicle surgery. He had anelevated hemoglobin as far back as August 2013 (but it was normal again in January of 2015). In September of 2020 he had a hemoglobin of 18.8 g/dL. Subsequent erythropoietin testing was 1.1 mIU/mL. Testing of the peripheral blood on 10/16/2020 was negative for BCR-ABL, but positive for JAK2 V617F (VAF 47%). He started treatment with PTG-300 on 02/26/2021 (phse II study). Since starting he has not required phlebotomies. He is overall doing quite well. No pain today. Appetite has been good. He notes improvement of injection site discomfort with applying ice after injection. Follow up per study. I spent a total of 40 minutes on the date of the service which included preparing to see the patient, [id number] patient care, completing clinical documentation, performing a medically appropriate examination, counseling and educating the patient/family/caregiver, ordering medications, tests, or p rocedures, communicating with other HCPs (not separately reported), independently interpreting results (not separately reported) and care coordination (not separately reported). Bryce Ventura MD Visit Details Past Medical History He is here today for follow up. Overall he is feeling well and offers no new complaints. His Hct isstable. An inventory of his MPN symptoms are as follows. MPN-SAF (MPN-10) TSS: Perameter Score (0 if absent to 10 if worst imaginable) In the past 24 hours: Fatigue 1 In the past 7 days: Early satiety 0 Abdominal pain (and discomfort) 0 Inactivity 0 Concentration 0 Night sweats 0 Pruritus 0 Diffuse Bone pain (not joint pain/arthritis) 0 Fever (>100 F, 10 = daily) 0 Weight loss (or gain) in past 6 months 0 Overall QoL 0 Enrique WILLINGHAM et alJ Clin Oncol 2012;30:[id number]. Review of Systems PAIN ASSESSMENT: Negative for pain, history of chronic pain, or current treatment for a chronic pain condition GENERAL: No weight loss, malaise or fevers. HEENT: Positive forsignificant headaches, now resolved. No changes in hearing or vision, no nose bleeds or other nasal problems RESPIRATORY: Negative for cough, hemoptysis, wheezing or shortness of breath CARDIOVASCULAR: Negative for chest pain, leg swelling or palpitations. GI: no nausea, vomiting, or diarrhea : No history of dysuria, frequency or incontinence. MUSCULOSKELETAL: Negative for joint pain, back pain or muscle pain. SKIN: Negative for lesions, rash, Positive for intermittent itching to scalp and face, unchanged. HEMATOLOGY/LYMPHOLOGY: Negative for prolonged bleeding, bruising easily or swollen nodes. NEURO: No history of headaches, syncope, paralysis, seizures or tremors Adjunct Histories PAST MEDICAL HISTORY Diagnosis Date Elevated prostate specific antigen (PSA) Hypertension REYMUNDO (obstructive sleep apnea) Polycythemia Seasonal allergic rhinitis due to pollen PAST SURGICAL HISTORY Procedure Laterality Date ARTHROSCOPY KNEE DIAGNOSTIC W/WO SYNOVIAL BX SPX Right CLAVICLE LEFT COLONOSCOPY 2014 INGUINAL HERNIA REPAIR HX TONSILLECTOMY & ADENOIDECTOMY <AGE 12 Family History Reviewed Including Cardiac Diseases, Psychiatric Diseases, & Substance Abuse Problem: Hypertension Relation: Mother Age of Onset: (Not Specified) Problem: Heart disease Relation: Mother Age of Onset: (Not Specified) Problem: Cancer Relation: Mother Age of Onset: (Not Specified) Problem: Colon Cancer Relation: Mother Age of Onset: (Not Specified) Problem: Lymphoma Relation: Mother Age of Onset: (Not Specified) Problem: Hypertension Relation: Father Age of Onset: (Not Specified) Problem: Diabetes Relation: Father Age of Onset: (Not Specified) Problem: Hypertension Relation: Sister Age of Onset: (Not Specified) Problem: Parkinson s Disease Relation: Maternal Grandmother Age of Onset: (Not Specified) Problem: Lung Cancer Relation: Paternal Grandmother Age of Onset: (Not Specified) Problem: Stroke Relation: Paternal Grandfather Age of Onset: (Not Specified) Social History Tobacco Use Smoking status: Never Smoker Smokeless tobacco: Never Used Vaping Use Vaping Use: Never used Substance Use Topics Alcohol use: Yes Drug use: Not Currently Allergies and Medications ALLERGIES Allergen Reactions Bactrim [Sulfametho* Rash alcohol swabs Apply 1 Each to affected area one time a week. Oral Medication Containers (SHARPS CONTAINER) misc 1 Container as directed. KRILL OIL ORAL Take by mouth twice daily. amLODIPine (NORVASC) 5 mg tablet Take 5 mg by mouth once daily. multivitamin with minerals (ONE-A-DAY 50 PLUS ORAL) Take by mouth once daily. aspirin 81 mg cap Take by mouth once daily. Exam Vital Signs BP 130/66 Pulse 69 Temp (Src) 97.9 (Oral) Resp 16 Ht 5' 9.528 (1.77m) Wt 185 lb 9.6 oz (84.2kg) SpO2 99[RA]% BMI 26.99 kg/(m^2). Performance Status Karnofsky Scale:100 - Normal, no complaints, no evidence of disease. ECOG/Zubrod Performance Scale: 0- Fully active, able to carry on all pre-disease performance w/o restriction. Examination General Appearance: Well appearing, alert, in no acute distress, well-hydrated, well nourished. Skin: Skin color, texture, turgor normal, no suspicious rashes or lesions HEENT: Anicteric sclera Respiratory: Lungs clear to auscultation. No wheezing, rhonchi, rales Heart: RRR without murmur Abdomen: Abdomen soft, non-tender. Bowel sounds normal. No masses, spleen tip measures 0 cm below the left costal margin at the midclavicular line. Extremeties: No deformities, edema Muskuloskeletal: No joint swelling Objective Data Labs and Imaging Reviewed outside records provided prior to this visit and those in EPIC. documented in this encounterW[facility]07-19-2022 Miscellaneous Notes* Telephone Encounter - Hannah Lyons RN - 09/01/2021 3:28 PM EDT Pt's , Micki, called and left a message to see if Segundo's next visit will be prolonged or the usual time since he will be moving to Part 2 of the clinical trial PTG 1Z21/21-283. Attempted to callher back. Left message on voice mail that the appointment should not be any longer than the past several visits. Left contact information for any further questions. documented in this encounterWvumed[facility]06-28-2022 History of Present illness Narrative* Hannah Lyons RN - 08/11/2021 1:53 PM EDTSummary: PTG 1Z21/21-283 week 25 visit Title:A Phase 2 Study of the Hepcidin Mimetic PTG-300 in Patients with Phlebotomy-Requiring Polycythemia Vera Consent expiration 05/29/2021 Screening date: 02/12/2021 Screening #: [id number] Part 1 week 1: 02/26/2021 Patient is here today for Part 1 week 25 visit for the PTG 1Z21 Trial, IRB# [id number]. Patient has signed Informed Consent on 02/12/2021, prior to any study related procedures. Copy given to patient. Patient had labs drawn then met with Sindy Dunn CNP and research nurse. PE completed by Sindy JO. Patient is a Male with PV. Patient is willing and able to comply with the protocol for the durationof the study including undergoing treatment and scheduled visits and examinations. Pt here by himself. No phlebotomies needed since last visit. Pt denies headaches. Pt states no new adverse events. Pt continues to report swelling and firmness at the injection sites. Redness has been lessened by applying ice immediately after his injection. Patient does continues to meet parameters to proceed with therapy. Concomitant medications reviewed per protocol: yes Changes per patient: No Quality of life questionnaire completed per protocol: N/A Clinical trial labs completed per protocol: Yes VS completed per protocol: Yes ECO EKG: Screening QTcF 414 ms. Week 13 QTcF 427 ms Not required this visit. CT: not required this visit Spleen: 0 cm MPN-SAF (MPN-10) TSS: Perameter Score (0 if absent to 10 if worst imaginable) In the past 24 hours: Fatigue 1 In the past 7 days: Early satiety 0 Abdominal pain (and discomfort) 0 Inactivity 0 Concentration 0 Night sweats 0 Pruritus 0 Diffuse Bone pain (not joint pain/arthritis) 0 Fever (>100 F, 10 = daily) 0 Weight loss (or gain) in past 6 months 0 Overall QoL 0 Enrique WILLINGHAM et alJ Clin Oncol 2012;30:[id number]. PAST MEDICAL HISTORY Diagnosis Date Status/Active Issues Elevated prostate specific antigen (PSA) 09/2020 Controlled Hypertension 10/2020 Controlled with medication REYMUNDO (obstructive sleep apnea) ~2018 Uncontrolled/does not use CPAP Polycythemia Vera 09/2020 Uncontrolled Seasonal allergic rhinitis due to pollen *greater than 30 years Controlled with medication DVT, left upper arm after clavicle repair 2001 Lump to right side of neck, *pt reported-lypoma?? 2016 2015 PAST SURGICAL HISTORY Procedure Laterality Date CLAVICLE LEFT REPAIR 2001 COLONOSCOPY 2014 DIAGNOSTIC ARTHROSCOPY KNEE Right ~2006 Inguinal hernia repair ~1979 INGUINAL HERNIA MESH REPAIR HX ~1998 REMOVE TONSILS/ADENOIDS,<12 Y/O ~ Social history: Smoking status: nonsmoker ETOH intake: Drinks on average 1-2 times per week, 2 rum and cokes. Denies recreational drug use. 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 HTN 10/2020 multivitamin with minerals (ONE-A-DAY 50 PLUS ORAL) 1 tab PO daily Health *greater than 8 years aspirin 81 mg cap 81 mg PO daily Heart/PV 2018 Kenalog injection 60 mg IM twice a year Seasonal allergies ~1989 Zithromax 500 mg po first day and 250 mg daily for 4 days Sinus congestion ~03/11/2021 Stopped 03/15/2021 Flonase 2 sprays in each nostril daily Sinus congestion ~03/11/2021 Stopped 03/15/2021 Sulfacetamide eye gtts, 10% 2 gtts in each eye for QID Eye infection ~03/11/2021 Stopped ~03/17/2021 Tylenol 1 gram PO TID PRN Headaches 03/02/2021 Hydrocortiscone cream, OTC Apply to area BID Injection site reaction 03/19/2021 Prior PV therapy: Phlebotomies 11/2020 to present Baseline toxicities per CTCAE v. 5: All predate therapy, are chronic conditions and will not be actively followed unless they worsen during the clinical trial. Pruritus Grade 1. Baseline. Start date: 12/2020. Resolve date: ongoing. Drugs to treat: none. Outcome: present intermittently Night sweats Grade 1. Baseline. Start date: 2018. Resolve date: ongoing. Drugs to treat: none. Outcome: present intermittently Bone pain (legs)Grade 1. Baseline. Start date: 12/2020. Resolve date: ongoing. Drugs to treat: none. Outcome: present intermittently Lump to right side of neck (lypoma?) Grade 1. Baseline. Start date: 2015. Resolve date: ongoing. Drugs to treat: none. Outcome: still present Toxicities per CTCAE v.5: 08/11/2021 Anemia Grade 1. RELATED to PTG-300. Start date: 03/13/2021. Resolve date: ongoing. Drugs to treat: none. Outcome: still present Injection site reaction (firmness) Grade 1. RELATED to PTG-300. Start date: 04/23/2021. Resolve date: ongoing with each weekly injection. Drugs to treat: hydrocortisone, ice. Outcome: present intermittently with each injection of PTG- 300 and resolves 6-7 days after the injection Injection site reaction (erythema, swelling) Grade 1. RELATED to PTG-300. Start date: 04/23/2021. Resolve date: ongoing with each weekly injection. Drugs to treat: hydrocortisone, ice. Outcome: present intermittently with each injection of PTG-300 and resolves 3-4 days after the injection Injection site reaction (bruising) Grade 1. RELATED. Start date: 03/26/2021. Resolve date: ongoing. Drugs to treat: none. Outcome: present intermittently at injection sites Fatigue Grade 1. UNRELATED. Start date: 06/2021. Resolve date: ongoing. Drugs to treat: none. Outcome: still present Resolved: Headaches Grade 2. POSSIBLY RELATED. Start date: 03/02/2021. Resolve date: 03/24/2021. Drugs to treat:flonase, zithromax, tylenol. Outcome: resolved Sinus congestion Grade 2. UNRELATED. Start date: 03/06/2021. Resolve date: 03/24/2021. Drugs to treat:flonase, zithromax, tylenol. Outcome: resolved Injection site reaction (erythema, itching, swelling, firmness) Grade 1. RELATED. Start date: 03/05/2021. Resolve date: 03/09/2021. Drugs to treat: none. Outcome: resolved Injection site reaction (erythema, itching, swelling, firmness) Grade 1. RELATED. Start date: 03/12/2021. Resolve date: 03/17/2021. Drugs to treat: none. Outcome: resolved Injection site reaction (erythema, itching, swelling, firmness) Grade 1. RELATED. Start date: 03/19/2021. Resolve date: 03/21/2021. Drugs to treat: ice, hydrocortisone cream. Outcome: resolved Eye infection Grade 2. UNRELATED. Start date: ~03/11/2021. Resolve date: ~03/17/2021. Drugs to treat: sulfacetamide tts. Outcome: resolved Injection site reaction (erythema, itching, swelling, bruising, firmness) Grade 1. RELATED. Start date: 03/26/2021. Resolve date: 04/02/2021. Drugs to treat: ice. Outcome: resolved Injection site reaction (erythema, itching, swelling, firmness) Grade 1. RELATED. Start date: 04/02/2021. Resolve date: 04/09/2021. Drugs to treat: ice.. Outcome: resolved Injection site reaction (erythema, itching, swelling, firmness) Grade 1. RELATED. Start date: 04/09/2021. Resolve date: 04/16/2021. Drugs to treat: ice. Outcome: resolved Injection site reaction (erythema, itching, swelling, firmness) Grade 1. RELATED. Start date: 04/16/2021. Resolve date: 04/23/2021. Drugs to treat: ice Outcome:resolved Ankle swelling Grade 1. UNRELATED. Start date: 04/09/2021. Resolve date: 04/11/2021. Drugs to treat: none. Outcome: resolved Dosing: Reviewed administration directions for giving a SC injection and injection sites. Discussedrotation of injection sites and to not use the same site as the previous week. Pt verbalized understanding. Pt to self administered 60 mg PTG-300 SC injection at home on , 08/13/2021. Pt reports are better days to dose for his schedule. Patient states he feels comfortable administering injections at home. Patient has research RN contact information and hem/onc fellow torsion spring coiling machine setter phone number. 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 Patient aware to call the research team for injection site reactions that do not resolve in 24 hours. Pt aware tylenol can be taken for injection site pain and may useice. OTC Hydrocortisone cream may be used also. Pt verbalized understanding. Reviewed study drug log. Pt given a new study log. Discussed storage of study medication in refrigerator and can be room temperature for 12 hours. Pt is using the soft sided cooler bag and instructedto keep freezer packs in the freezer and bring back bag and ice packs with him to next visit in order to transport medication home. Patient verbalized understanding. Returned: 4 empty cartons of 40 mg dose of PTG-300 and 4 empty cartons of 20 mg dose of PTG-300. The count is accurate. Dispensed: The patient was given 8 syringes of PTG-300. Four at 40 mg each and four at 20 mg each as dispensed by the pharmacy. Instructed to return the diary and the empty cartons at next study visit. Use of the study medication diary and dosing instructions were reviewed with the patient. 20 mg Syringe #s: G3742, G3747, G3942, G4058 40 mg Syringe #s: H4745, H4749, H4757, H4761 The provider has reviewed and verified the information included within this note, including AE information Patient understands that the nurse or MD must be called prior to taking any new medications as wellas stopping any medications. Patient also understands to call nurse or MD should there any new medical issues arise and/or goes to the hospital for any reason. Patient is aware to monitor temperatureand to call and/or go to the nearest emergency room for temperatures of 100.4 or greater. Patient knows to call in the interim for any questions or concerns. Patient has contact information for Hannah Lyons RN Research Nurse and Dr. Ventura, along with the 24 hour On-Call number for the On-Call Oncology Fellow ([phone]). Patient understands that this participation is voluntary and may withdrawal at any time during the trial. Patient aware to RTC in 4 weeks for Part 1 Week 29 of PTG 1Z21. CAROL Zambrano, RN documented in this encounterW[facility] History of Present illness Narrative* Elizabeth Dunn APRN.CHAMFERING MACHINE OPERATOR - 08/11/2021 1:01 PM EDT Some elements copied from Dr. Ventura' on 07/14/2021, the elements have been updated and all reflect current decision making from today, 08/11/2021. [facility] Clinical Note Assessment and Plan In summary: Mr. Leos is a 56 year old gentleman with polycythemia vera. Problem List Polycythemia vera He also has a history of erythrocytosis. He also has a history of elevated PSA, HTN, and REYMUNDO (not on CPAP). He did have a left upper arm DVT in 1999 was provoked by a left clavicle surgery. He had anelevated hemoglobin as far back as August 2013 (but it was normal again in January of 2015). In September of 2020 he had a hemoglobin of 18.8 g/dL. Subsequent erythropoietin testing was 1.1 mIU/mL. Testing of the peripheral blood on 10/16/2020 was negative for BCR-ABL, but positive for JAK2 V617F (VAF 47%). Mr. Leos is here for follow up for clinical trial. He is overall doing quite well. No pain today. Appetite has been good. He notes improvement of injection site discomfort with applying ice after injection. Visit Details Past Medical History He is here today for follow up. Overall he is feeling well and offers no new complaints. His Hct isstable. An inventory of his MPN symptoms are as follows. MPN-SAF (MPN-10) TSS: Perameter Score (0 if absent to 10 if worst imaginable) In the past 24 hours: Fatigue 1 In the past 7 days: Early satiety 0 Abdominal pain (and discomfort) 0 Inactivity 0 Concentration 0 Night sweats 0 Pruritus 0 Diffuse Bone pain (not joint pain/arthritis) 0 Fever (>100 F, 10 = daily) 0 Weight loss (or gain) in past 6 months 0 Overall QoL 0 Enrique WILLINGHAM et alJ Clin Oncol 2012;30:[id number]. Review of Systems PAIN ASSESSMENT: Negative for pain, history of chronic pain, or current treatment for a chronic pain condition GENERAL: No weight loss, malaise or fevers. HEENT: Positive forsignificant headaches, now resolved. No changes in hearing or vision, no nose bleeds or other nasal problems RESPIRATORY: Negative for cough, hemoptysis, wheezing or shortness of breath CARDIOVASCULAR: Negative for chest pain, leg swelling or palpitations. GI: no nausea, vomiting, or diarrhea : No history of dysuria, frequency or incontinence. MUSCULOSKELETAL: Negative for joint pain, back pain or muscle pain. SKIN: Negative for lesions, rash, Positive for intermittent itching to scalp and face, unchanged. HEMATOLOGY/LYMPHOLOGY: Negative for prolonged bleeding, bruising easily or swollen nodes. NEURO: No history of headaches, syncope, paralysis, seizures or tremors Adjunct Histories PAST MEDICAL HISTORY Diagnosis Date Elevated prostate specific antigen (PSA) Hypertension REYMUNDO (obstructive sleep apnea) Polycythemia Seasonal allergic rhinitis due to pollen PAST SURGICAL HISTORY Procedure Laterality Date ARTHROSCOPY KNEE DIAGNOSTIC W/WO SYNOVIAL BX SPX Right CLAVICLE LEFT COLONOSCOPY 2014 INGUINAL HERNIA REPAIR HX TONSILLECTOMY & ADENOIDECTOMY <AGE 12 Family History Reviewed Including Cardiac Diseases, Psychiatric Diseases, & Substance Abuse Problem: Hypertension Relation: Mother Age of Onset: (Not Specified) Problem: Heart disease Relation: Mother Age of Onset: (Not Specified) Problem: Cancer Relation: Mother Age of Onset: (Not Specified) Problem: Colon Cancer Relation: Mother Age of Onset: (Not Specified) Problem: Lymphoma Relation: Mother Age of Onset: (Not Specified) Problem: Hypertension Relation: Father Age of Onset: (Not Specified) Problem: Diabetes Relation: Father Age of Onset: (Not Specified) Problem: Hypertension Relation: Sister Age of Onset: (Not Specified) Problem: Parkinson s Disease Relation: Maternal Grandmother Age of Onset: (Not Specified) Problem: Lung Cancer Relation: Paternal Grandmother Age of Onset: (Not Specified) Problem: Stroke Relation: Paternal Grandfather Age of Onset: (Not Specified) Social History Tobacco Use Smoking status: Never Smoker Smokeless tobacco: Never Used Vaping Use Vaping Use: Never used Substance Use Topics Alcohol use: Yes Drug use: Not Currently Allergies and Medications ALLERGIES Allergen Reactions Bactrim [Sulfametho* Rash alcohol swabs Apply 1 Each to affected area one time a week. Oral Medication Containers (SHARPS CONTAINER) misc 1 Container as directed. KRILL OIL ORAL Take by mouth twice daily. amLODIPine (NORVASC) 5 mg tablet Take 5 mg by mouth once daily. multivitamin with minerals (ONE-A-DAY 50 PLUS ORAL) Take by mouth once daily. aspirin 81 mg cap Take by mouth once daily. Exam Vital Signs BP 115/69 Pulse 72 Temp (Src) 97.8 (Oral) Resp 16 Ht 5' 9.528 (1.77m) Wt 185 lb 12.8 oz (84.3kg) SpO2 99[RA]% BMI 27.02 kg/(m^2). Performance Status Karnofsky Scale:100 - Normal, no complaints, no evidence of disease. ECOG/Zubrod Performance Scale: 0- Fully active, able to carry on all pre-disease performance w/o restriction. Examination General Appearance: Well appearing, alert, in no acute distress, well-hydrated, well nourished. Skin: Skin color, texture, turgor normal, no suspicious rashes or lesions HEENT: Anicteric sclera Respiratory: Lungs clear to auscultation. No wheezing, rhonchi, rales Heart: RRR without murmur Abdomen: Abdomen soft, non-tender. Bowel sounds normal. No masses, spleen tip measures 0 cm below the left costal margin at the midclavicular line. Extremeties: No deformities, edema Muskuloskeletal: No joint swelling Objective Data Labs and Imaging Reviewed outside records provided prior to this visit and those in [facility]. documented in this encounterW[facility]28[facility] Nurse Note* Maricruz Costello RN - 08/11/2021 12:47 PM EDT Additional intake questions: Has the patient had fever, nausea, vomiting, diarrhea, constipation, fatigue for > 1 week? No Does the patient have a decreased appetite? No Does patient want to see a Service Order Expediter? No (yes to any of above refer patient to schedulers for dietitian appointment) ) Does patient have any new or increased numbness or tingling of extremities? No Is patient interested in fertility information? No Does patient need any prescription refills? No Does patient have an advanced directive in place? No, Patient referred to [facility] Electronically Signed By: Maricruz Costello RN documented in this encounterW[facility]05-31-20[facility] History of Present illness Narrative* Bryce Ventura MD - 07/14/2021 10:12 AM EDT Some elements copied from my note on 05/21/2021, the elements have been updated and all reflect current decision making from today, 06/18/2021. [facility] Clinical Note Assessment and Plan In summary: Mr. Leos is a 56 year old gentleman with polycythemia vera. Problem List Polycythemia vera He also has a history of erythrocytosis. He also has a history of elevated PSA, HTN, and REYMUNDO (not on CPAP). He did have a left upper arm DVT in 1999 was provoked by a left clavicle surgery. He had anelevated hemoglobin as far back as August 2013 (but it was normal again in January of 2015). In September of 2020 he had a hemoglobin of 18.8 g/dL. Subsequent erythropoietin testing was 1.1 mIU/mL. Testing of the peripheral blood on 10/16/2020 was negative for BCR-ABL, but positive for JAK2 V617F (VAF 47%). His symptoms include occasional headaches, which were improved with treatment of his hypertension. He is feeling well overall and offers no new complaints. He denies any dizziness, chest pain, palpitations or, dyspnea on exertion, no blurry vision, has pruritus to scalp and face intermittently, No early satiety or weight loss. He has no other prior venous thromboembolic events. No prior strokes. By the classic thrombosis risk model, he has low risk disease. The goal would be a hematocrit below45%. This can be done with phlebotomies alone, or cytoreductive agent if he does not tolerate phlebotomies. He is on daily ASA. He was consented for the trial with PTG-300 (rusferitide) and is now week 21 of the trial. He has not needed a phlebotomy since. His rusferitide dose was increased to 60 mg weekly during last visit. Will continue at that dose. I spent a total of 30 minutes on the date of the service which included preparing to see the patient, [id number] patient care, completing clinical documentation, performing a medically appropriate examination, counseling and educating the patient/family/caregiver, ordering medications, tests, or p rocedures, communicating with other HCPs (not separately reported), independently interpreting results (not separately reported) and care coordination (not separately reported). Bryce Ventura MD CC: MD Tigre Mario, DO Visit Details Past Medical History He is here today for follow up. Overall he is feeling well and offers no complaints. His Hct is stable. An inventory of his MPN symptoms are as follows. MPN-SAF (MPN-10) TSS: Perameter Score (0 if absent to 10 if worst imaginable) In the past 24 hours: Fatigue 2 In the past 7 days: Early satiety 0 Abdominal pain (and discomfort) 0 Inactivity 0 Concentration 0 Night sweats 0 Pruritus 0 Diffuse Bone pain (not joint pain/arthritis) 0 Fever (>100 F, 10 = daily) 0 Weight loss (or gain) in past 6 months 0 Overall QoL 0 Enrique WILLINGHAM et alJ Clin Oncol 2012;30:[id number]. Review of Systems PAIN ASSESSMENT: Negative for pain, history of chronic pain, or current treatment for a chronic pain condition GENERAL: No weight loss, malaise or fevers. HEENT: Positive forsignificant headaches, now resolved. No changes in hearing or vision, no nose bleeds or other nasal problems RESPIRATORY: Negative for cough, hemoptysis, wheezing or shortness of breath CARDIOVASCULAR: Negative for chest pain, leg swelling or palpitations. GI: no nausea, vomiting, or diarrhea : No history of dysuria, frequency or incontinence. MUSCULOSKELETAL: Negative for joint pain, back pain or muscle pain. SKIN: Negative for lesions, rash, Positive for intermittent itching to scalp and face, unchanged. HEMATOLOGY/LYMPHOLOGY: Negative for prolonged bleeding, bruising easily or swollen nodes. NEURO: No history of headaches, syncope, paralysis, seizures or tremors Adjunct Histories PAST MEDICAL HISTORY Diagnosis Date Elevated prostate specific antigen (PSA) Hypertension REYMUNDO (obstructive sleep apnea) Polycythemia Seasonal allergic rhinitis due to pollen PAST SURGICAL HISTORY Procedure Laterality Date ARTHROSCOPY KNEE DIAGNOSTIC W/WO SYNOVIAL BX SPX Right CLAVICLE LEFT COLONOSCOPY 2014 INGUINAL HERNIA REPAIR HX TONSILLECTOMY & ADENOIDECTOMY <AGE 12 Family History Reviewed Including Cardiac Diseases, Psychiatric Diseases, & Substance Abuse Problem: Hypertension Relation: Mother Age of Onset: (Not Specified) Problem: Heart disease Relation: Mother Age of Onset: (Not Specified) Problem: Cancer Relation: Mother Age of Onset: (Not Specified) Problem: Colon Cancer Relation: Mother Age of Onset: (Not Specified) Problem: Lymphoma Relation: Mother Age of Onset: (Not Specified) Problem: Hypertension Relation: Father Age of Onset: (Not Specified) Problem: Diabetes Relation: Father Age of Onset: (Not Specified) Problem: Hypertension Relation: Sister Age of Onset: (Not Specified) Problem: Parkinson s Disease Relation: Maternal Grandmother Age of Onset: (Not Specified) Problem: Lung Cancer Relation: Paternal Grandmother Age of Onset: (Not Specified) Problem: Stroke Relation: Paternal Grandfather Age of Onset: (Not Specified) Social History Tobacco Use Smoking status: Never Smoker Smokeless tobacco: Never Used Vaping Use Vaping Use: Never used Substance Use Topics Alcohol use: Yes Drug use: Not Currently Allergies and Medications ALLERGIES Allergen Reactions Bactrim [Sulfametho* Rash alcohol swabs Apply 1 Each to affected area one time a week. Oral Medication Containers (SHARPS CONTAINER) misc 1 Container as directed. KRILL OIL ORAL Take by mouth twice daily. amLODIPine (NORVASC) 5 mg tablet Take 5 mg by mouth once daily. multivitamin with minerals (ONE-A-DAY 50 PLUS ORAL) Take by mouth once daily. aspirin 81 mg cap Take by mouth once daily. Exam Vital Signs BP 130/63 Pulse 70 Temp (Src) 97.9 (Oral) Resp 18 Ht 5' 9.528 (1.77m) Wt 187 lb (84.8kg) SpO2 100[RA]% BMI 27.20 kg/(m^2). Performance Status Karnofsky Scale:100 - Normal, no complaints, no evidence of disease. ECOG/Zubrod Performance Scale: 0- Fully active, able to carry on all pre-disease performance w/o restriction. Examination General Appearance: Well appearing, alert, in no acute distress, well-hydrated, well nourished. Skin: Skin color, texture, turgor normal, no suspicious rashes or lesions HEENT: Anicteric sclera Respiratory: Lungs clear to auscultation. No wheezing, rhonchi, rales Heart: RRR without murmur Abdomen: Abdomen soft, non-tender. Bowel sounds normal. No masses, spleen tip measures 0 cm below the left costal margin at the midclavicular line. Extremeties: No deformities, edema Muskuloskeletal: No joint swelling Objective Data Labs and Imaging Reviewed outside records provided prior to this visit and those in [facility]. documented in this encounterW[facility]05-31-2022 History of Present illness Narrative* Hannah Lyons RN - 07/14/2021 10:07 AM EDTSummary: PTG 1Z21/21-283 part 1 week 21 visit Title:A Phase 2 Study of the Hepcidin Mimetic PTG-300 in Patients with Phlebotomy-Requiring Polycythemia Vera Consent expiration 05/29/2021 Screening date: 02/12/2021 Screening #: [id number] Part 1 week 1: 02/26/2021 Patient is here today for Part 1 week 21 visit for the PTG 1Z21 Trial, IRB# [id number]. Patient has signed Informed Consent on 02/12/2021, prior to any study related procedures. Copy given to patient. Patient had labs drawn then met with Dr. Ventura and research nurse. PE completed by Dr. Ventura. Patient is a Male with PV. Patient is willing and able to comply with the protocol for the durationof the study including undergoing treatment and scheduled visits and examinations. Pt here with his . No phlebotomies needed since last visit. Pt denies headaches. Pt states no new adverse events. Pt continues to report redness, swelling and firmness at the injection sites. Pt has been slightly more fatigued. He falls asleep quickly during the day if just sitting. Dr. Ventura as ked about pt's sleep. Pt states he has been diagnosed with mild sleep apnea about 4 years ago and had a CPAP machine that he used for about 1 month but no longer uses. Patient does continue to meet eligibility to proceed with therapy. Concomitant medications reviewed per protocol: yes Changes per patient: No Quality of life questionnaire completed per protocol: N/A Clinical trial labs completed per protocol: Yes VS completed per protocol: Yes ECO EKG: Screening QTcF 414 ms. Week 13 QTcF 427 ms Not required this visit. CT: not required this visit Spleen: 0 cm MPN-SAF (MPN-10) TSS: Perameter Score (0 if absent to 10 if worst imaginable) In the past 24 hours: Fatigue 2 In the past 7 days: Early satiety 0 Abdominal pain (and discomfort) 0 Inactivity 0 Concentration 0 Night sweats 0 Pruritus 0 Diffuse Bone pain (not joint pain/arthritis) 0 Fever (>100 F, 10 = daily) 0 Weight loss (or gain) in past 6 months 0 Overall QoL 0 Enrique WILLINGHAM et alJ Clin Oncol 2012;30:[id number]. PAST MEDICAL HISTORY Diagnosis Date Status/Active Issues Elevated prostate specific antigen (PSA) 09/2020 Controlled Hypertension 10/2020 Controlled with medication REYMUNDO (obstructive sleep apnea) ~2019 Uncontrolled/does not use CPAP Polycythemia Vera 09/2020 Uncontrolled Seasonal allergic rhinitis due to pollen *greater than 30 years Controlled with medication DVT, left upper arm after clavicle repair 2001 Lump to right side of neck, *pt reported-lypoma?? 2016 2015 PAST SURGICAL HISTORY Procedure Laterality Date CLAVICLE LEFT REPAIR 2001 COLONOSCOPY 2014 DIAGNOSTIC ARTHROSCOPY KNEE Right ~2006 Inguinal hernia repair ~1979 INGUINAL HERNIA MESH REPAIR HX ~1998 REMOVE TONSILS/ADENOIDS,<12 Y/O ~ Social history: Smoking status: nonsmoker ETOH intake: Drinks on average 1-2 times per week, 2 rum and cokes. Denies recreational drug use. 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 HTN 10/2020 multivitamin with minerals (ONE-A-DAY 50 PLUS ORAL) 1 tab PO daily Health *greater than 8 years aspirin 81 mg cap 81 mg PO daily Heart/PV 2018 Kenalog injection 60 mg IM twice a year Seasonal allergies ~1989 Zithromax 500 mg po first day and 250 mg daily for 4 days Sinus congestion ~03/11/2021 Stopped 03/15/2021 Flonase 2 sprays in each nostril daily Sinus congestion ~03/11/2021 Stopped 03/15/2021 Sulfacetamide eye gtts, 10% 2 gtts in each eye for QID Eye infection ~03/11/2021 Stopped ~03/17/2021 Tylenol 1 gram PO TID PRN Headaches 03/02/2021 Hydrocortiscone cream, OTC Apply to area BID Injection site reaction 03/19/2021 Prior PV therapy: Phlebotomies 11/2020 to present Baseline toxicities per CTCAE v. 5: All predate therapy, are chronic conditions and will not be actively followed unless they worsen during the clinical trial. Pruritus Grade 1. Baseline. Start date: 12/2020. Resolve date: ongoing. Drugs to treat: none. Outcome: present intermittently Night sweats Grade 1. Baseline. Start date: 2018. Resolve date: ongoing. Drugs to treat: none. Outcome: present intermittently Bone pain (legs)Grade 1. Baseline. Start date: 12/2020. Resolve date: ongoing. Drugs to treat: none. Outcome: present intermittently Lump to right side of neck (lypoma?) Grade 1. Baseline. Start date: 2015. Resolve date: ongoing. Drugs to treat: none. Outcome: still present Toxicities per CTCAE v.5: 07/14/2021 Anemia Grade 1. RELATED to PTG-300. Start date: 03/13/2021. Resolve date: ongoing. Drugs to treat: none. Outcome: still present Injection site reaction (firmness) Grade 1. RELATED to PTG-300. Start date: 04/23/2021. Resolve date: ongoing with each weekly injection. Drugs to treat: hydrocortisone, ice. Outcome: present intermittently with each injection of PTG- 300 and resolves 6-7 days after the injection Injection site reaction (erythema, swelling) Grade 1. RELATED to PTG-300. Start date: 04/23/2021. Resolve date: ongoing with each weekly injection. Drugs to treat: hydrocortisone, ice. Outcome: present intermittently with each injection of PTG-300 and resolves 3-4 days after the injection Injection site reaction (bruising) Grade 1. RELATED. Start date: 03/26/2021. Resolve date: ongoing. Drugs to treat: none. Outcome: present intermittently at injection sites Fatigue Grade 1. UNRELATED. Start date: 06/2021. Resolve date: ongoing. Drugs to treat: none. Outcome: still present Resolved: Headaches Grade 2. POSSIBLY RELATED. Start date: 03/02/2021. Resolve date: 03/24/2021. Drugs to treat:flonase, zithromax, tylenol. Outcome: resolved Sinus congestion Grade 2. UNRELATED. Start date: 03/06/2021. Resolve date: 03/24/2021. Drugs to treat:flonase, zithromax, tylenol. Outcome: resolved Injection site reaction (erythema, itching, swelling, firmness) Grade 1. RELATED. Start date: 03/05/2021. Resolve date: 03/09/2021. Drugs to treat: none. Outcome: resolved Injection site reaction (erythema, itching, swelling, firmness) Grade 1. RELATED. Start date: 03/12/2021. Resolve date: 03/17/2021. Drugs to treat: none. Outcome: resolved Injection site reaction (erythema, itching, swelling, firmness) Grade 1. RELATED. Start date: 03/19/2021. Resolve date: 03/21/2021. Drugs to treat: ice, hydrocortisone cream. Outcome: resolved Eye infection Grade 2. UNRELATED. Start date: ~03/11/2021. Resolve date: ~03/17/2021. Drugs to treat: sulfacetamide tts. Outcome: resolved Injection site reaction (erythema, itching, swelling, bruising, firmness) Grade 1. RELATED. Start date: 03/26/2021. Resolve date: 04/02/2021. Drugs to treat: ice. Outcome: resolved Injection site reaction (erythema, itching, swelling, firmness) Grade 1. RELATED. Start date: 04/02/2021. Resolve date: 04/09/2021. Drugs to treat: ice.. Outcome: resolved Injection site reaction (erythema, itching, swelling, firmness) Grade 1. RELATED. Start date: 04/09/2021. Resolve date: 04/16/2021. Drugs to treat: ice. Outcome: resolved Injection site reaction (erythema, itching, swelling, firmness) Grade 1. RELATED. Start date: 04/16/2021. Resolve date: 04/23/2021. Drugs to treat: ice Outcome:resolved Ankle swelling Grade 1. UNRELATED. Start date: 04/09/2021. Resolve date: 04/11/2021. Drugs to treat: none. Outcome: resolved Dosing: Reviewed administration directions for giving a SC injection and injection sites. Discussedrotation of injection sites and to not use the same site as the previous week. Pt verbalized understanding. Pt to self administered 60 mg PTG-300 SC injection at home on . Pt reports are better days to dose for his schedule. Patient states he feels comfortable administering injections at home. Patient has research RN contact information and hem/onc fellow torsion spring coiling machine setter phone number. 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 Patient aware to call the research team for injection site reactions that do not resolve in 24 hours. Pt aware tylenol can be taken for injection site pain and may use ice. OTC Hydrocortisone cream may be used also. Pt verbalized understanding. Reviewed study drug log. Pt corrected the dates on the study log being returned. Pt given a new study log. Discussed storage of study medication in refrigerator and can be room temperature for 12 hours. Pt is using the soft sided cooler bag and instructed to keep freezer packs in the freezer and bring back bag and ice packs with him to next visit in order to transport medication home. Patient verb alized understanding. Returned: 4 empty cartons of 40 mg dose of PTG-300 and 4 empty cartons of 20 mg dose of PTG-300. The count is accurate. Dispensed: The patient was given 8 syringes of PTG-300. Four at 40 mg each and four at 20 mg each as dispensed by the pharmacy. Instructed to return the diary and the empty cartons at next study visit. Use of the study medication diary and dosing instructions were reviewed with the patient. 20 mg Syringe #s: G4056, G4059, G4060, G4061 40 mg Syringe #s:H4409, H4505, H4507, H4508 The provider has reviewed and verified the information included within this note, including AE information Patient understands that the nurse or MD must be called prior to taking any new medications as wellas stopping any medications. Patient also understands to call nurse or MD should there any new medical issues arise and/or goes to the hospital for any reason. Patient is aware to monitor temperatureand to call and/or go to the nearest emergency room for temperatures of 100.4 or greater. Patient knows to call in the interim for any questions or concerns. Patient has contact information for Hannah Lyons RN Research Nurse and Dr. Ventura, along with the 24 hour On-Call number for the On-Call Oncology Fellow ([phone]). Patient understands that this participation is voluntary and may withdrawal at any time during the trial. Patient aware to RTC in 4 weeks for Part 1 Week 25 of PTG 1Z21. Hannah Lyons RN documented in this encounterW[facility] Nurse Note* Maricruz Costello RN - 07/14/2021 10:06 AM EDT Additional intake questions: Has the patient had fever, nausea, vomiting, diarrhea, constipation, fatigue for > 1 week? Yes, fatigue and Provider Notified Does the patient have a decreased appetite? No Does patient want to see a Service Order Expediter? No (yes to any of above refer patient to schedulers for dietitian appointment) ) Does patient have any new or increased numbness or tingling of extremities? No Is patient interested in fertility information? No Does patient need any prescription refills? No Does patient have an advanced directive in place? No, Patient referred to Resource Center Electronically Signed By: Maricruz Costello RN documented in this encounterW[facility]05-[facility] History of Present illness Narrative* Hannah Lyons RN - 06/18/2021 3:39 PM EDTSummary: PTG 1Z21/21-283 Part 1 week 17 visit Title:A Phase 2 Study of the Hepcidin Mimetic PTG-300 in Patients with Phlebotomy-Requiring Polycythemia Vera Consent expiration 05/29/2021 Screening date: 02/12/2021 Screening #: [id number] Part 1 week 1: 02/26/2021 Patient is here today for Part 1 week 13 visit for the PTG 1Z21 Trial, IRB# [id number]. Patient has signed Informed Consent on 02/12/2021, prior to any study related procedures. Copy given to patient. Patient had labs drawn then met with Delfina Graves CNP and research nurse. PE completed by Delfina Graves CNP. Patient is a Male with PV. Patient is willing and able to comply with the protocol for the durationof the study including undergoing treatment and scheduled visits and examinations. Pt here with his . No phlebotomies needed since last visit. Pt denies headaches. Pt states the injections reactions were less than previous cycles. The sites start out with redness/swelling that resolves after one day but then a firm knot under the skin remains for 4-7 days with intermittent bruising with injections. Patient does continue to meet eligibility to proceed with therapy Concomitant medications reviewed per protocol: yes Changes per patient: No Quality of life questionnaire completed per protocol: Yes Clinical trial labs completed per protocol: Yes VS completed per protocol: Yes ECO EKG: Screening QTcF 414 ms. Week 13 QTcF 427 ms Not required this visit. CT: not required this visit Spleen: 0 cm MPN-SAF (MPN-10) TSS: Perameter Score (0 if absent to 10 if worst imaginable) In the past 24 hours: Fatigue 1 In the past 7 days: Early satiety 0 Abdominal pain (and discomfort) 0 Inactivity 0 Concentration 0 Night sweats 0 Pruritus 1 Diffuse Bone pain (not joint pain/arthritis) 0 Fever (>100 F, 10 = daily) 0 Weight loss (or gain) in past 6 months 0 Overall QoL 0 Enrique WILLINGHAM et alJ Clin Oncol 2012;30:[id number]. PAST MEDICAL HISTORY Diagnosis Date Status/Active Issues Elevated prostate specific antigen (PSA) 09/2020 Controlled Hypertension 10/2020 Controlled with medication REYMUNDO (obstructive sleep apnea) ~2018 Uncontrolled/does not use CPAP Polycythemia Vera 09/2020 Uncontrolled Seasonal allergic rhinitis due to pollen *greater than 30 years Controlled with medication DVT, left upper arm after clavicle repair 2001 Lump to right side of neck, *pt reported-lypoma?? 2016 2015 PAST SURGICAL HISTORY Procedure Laterality Date CLAVICLE LEFT REPAIR 2001 COLONOSCOPY 2014 DIAGNOSTIC ARTHROSCOPY KNEE Right ~2006 Inguinal hernia repair ~1979 INGUINAL HERNIA MESH REPAIR HX ~1998 REMOVE TONSILS/ADENOIDS,<12 Y/O ~ Social history: Smoking status: nonsmoker ETOH intake: Drinks on average 1-2 times per week, 2 rum and cokes. Denies recreational drug use. 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 HTN 10/2020 multivitamin with minerals (ONE-A-DAY 50 PLUS ORAL) 1 tab PO daily Health *greater than 8 years aspirin 81 mg cap 81 mg PO daily Heart/PV 2018 Kenalog injection 60 mg IM twice a year Seasonal allergies ~1989 Zithromax 500 mg po first day and 250 mg daily for 4 days Sinus congestion ~03/11/2021 Stopped 03/15/2021 Flonase 2 sprays in each nostril daily Sinus congestion ~03/11/2021 Stopped 03/15/2021 Sulfacetamide eye gtts, 10% 2 gtts in each eye for QID Eye infection ~03/11/2021 Stopped ~03/17/2021 Tylenol 1 gram PO TID PRN Headaches 03/02/2021 Hydrocortiscone cream, OTC Apply to area BID Injection site reaction 03/19/2021 Prior PV therapy: Phlebotomies 11/2020 to present Baseline toxicities per CTCAE v. 5: All predate therapy, are chronic conditions and will not be actively followed unless they worsen during the clinical trial. Pruritus Grade 1. Baseline. Start date: 12/2020. Resolve date: ongoing. Drugs to treat: none. Outcome: present intermittently Night sweats Grade 1. Baseline. Start date: 2018. Resolve date: ongoing. Drugs to treat: none. Outcome: present intermittently Bone pain (legs)Grade 1. Baseline. Start date: 12/2020. Resolve date: ongoing. Drugs to treat: none. Outcome: present intermittently Lump to right side of neck (lypoma?) Grade 1. Baseline. Start date: 2015. Resolve date: ongoing. Drugs to treat: none. Outcome: still present Toxicities per CTCAE v.5: 06/18/2021 Anemia Grade 1. RELATED to PTG-300. Start date: 03/13/2021. Resolve date: ongoing. Drugs to treat: none. Outcome: still present Injection site reaction (firmness) Grade 1. RELATED to PTG-300. Start date: 04/23/2021. Resolve date: ongoing with each weekly injection. Drugs to treat: hydrocortisone, ice. Outcome: present intermittently with each injection of PTG- 300 and resolves 6-7 days after the injection Injection site reaction (erythema, swelling) Grade 1. RELATED to PTG-300. Start date: 04/23/2021. Resolve date: ongoing with each weekly injection. Drugs to treat: hydrocortisone, ice. Outcome: present intermittently with each injection of PTG-300 and resolves 3-4 days after the injection Resolved: Headaches Grade 2. POSSIBLY RELATED. Start date: 03/02/2021. Resolve date: 03/24/2021. Drugs to treat:flonase, zithromax, tylenol. Outcome: resolved Sinus congestion Grade 2. UNRELATED. Start date: 03/06/2021. Resolve date: 03/24/2021. Drugs to treat:flonase, zithromax, tylenol. Outcome: resolved Injection site reaction (erythema, itching, swelling, firmness) Grade 1. RELATED. Start date: 03/05/2021. Resolve date: 03/09/2021. Drugs to treat: none. Outcome: resolved Injection site reaction (erythema, itching, swelling, firmness) Grade 1. RELATED. Start date: 03/12/2021. Resolve date: 03/17/2021. Drugs to treat: none. Outcome: resolved Injection site reaction (erythema, itching, swelling, firmness) Grade 1. RELATED. Start date: 03/19/2021. Resolve date: 03/21/2021. Drugs to treat: ice, hydrocortisone cream. Outcome: resolved Eye infection Grade 2. UNRELATED. Start date: ~03/11/2021. Resolve date: ~03/17/2021. Drugs to treat: sulfacetamide tts. Outcome: resolved Injection site reaction (erythema, itching, swelling, bruising, firmness) Grade 1. RELATED. Start date: 03/26/2021. Resolve date: 04/02/2021. Drugs to treat: ice. Outcome: resolved Injection site reaction (erythema, itching, swelling, firmness) Grade 1. RELATED. Start date: 04/02/2021. Resolve date: 04/09/2021. Drugs to treat: ice.. Outcome: resolved Injection site reaction (erythema, itching, swelling, firmness) Grade 1. RELATED. Start date: 04/09/2021. Resolve date: 04/16/2021. Drugs to treat: ice. Outcome: resolved Injection site reaction (erythema, itching, swelling, firmness) Grade 1. RELATED. Start date: 04/16/2021. Resolve date: 04/23/2021. Drugs to treat: ice Outcome:resolved Ankle swelling Grade 1. UNRELATED. Start date: 04/09/2021. Resolve date: 04/11/2021. Drugs to treat: none. Outcome: resolved Dosing: Reviewed administration directions for giving a SC injection and injection sites. Discussedrotation of injection sites and to not use the same site as the previous week. Pt verbalized understanding. Pt to self administered 60 mg PTG-300 SC injection at home today. Patient states he feels comfortable administering injections at home. Patient has research RN contact information and hem/oncfellow torsion spring coiling machine setter phone number. 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 Patient aware to call the research team for injection site reactions that do not resolve in 24 hours. Pt aware tylenol can be taken for injection site pain and may use ice. OTC Hydrocortisone cream may be used also. Pt verbalized understanding. Reviewed study drug log. Discussed storage of study medication in refrigerator and can be room temperature for 12 hours. Pt is using the soft sided cooler bag and instructed to keep freezer packs in the freezer and bring back bag and ice packs with him to next visit in order to transport medicationhome. Patient verbalized understanding. Dispensed: The patient was given 8 syringes of PTG-300. Four at 40 mg each and four at 20 mg each as dispensed by the pharmacy. Instructed to return the diary and the empty cartons at next study visit. Use of the study medication diary and dosing instructions were reviewed with the patient. 20 mg Syringe #s: G3976, G3977, G3978, G3979 40 mg Syringe #s: H4506, H4509, H4510, H4511 The provider has reviewed and verified the information included within this note, including AE information Patient understands that the nurse or MD must be called prior to taking any new medications as wellas stopping any medications. Patient also understands to call nurse or MD should there any new medical issues arise and/or goes to the hospital for any reason. Patient is aware to monitor temperatureand to call and/or go to the nearest emergency room for temperatures of 100.4 or greater. Patient knows to call in the interim for any questions or concerns. Patient has contact information for Hannah Lyons RN Research Nurse and Dr. Ventura, along with the 24 hour On-Call number for the On-Call Oncology Fellow ([phone]). Patient understands that this participation is voluntary and may withdrawal at any time during the trial. Patient aware to RTC on 07/14/2021 for Week 21 of PTG 1Z21. Hannah Lyons RN documented in this encounterW[facility]04-07-2022 History of Present illness Narrative* Hannah Lyons RN - 05/21/2021 1:05 PM EDTSummary: PTG 1Z21/21-283 Part 1 week 13 visit Title:A Phase 2 Study of the Hepcidin Mimetic PTG-300 in Patients with Phlebotomy-Requiring Polycythemia Vera Consent expiration 05/29/2021 Screening date: 02/12/2021 Screening #: [id number] Part 1 week 1: 02/26/2021 Patient is here today for Part 1 week 13 visit for the PTG 1Z21 Trial, IRB# [id number]. Patient has signed Informed Consent on 02/12/2021, prior to any study related procedures. Copy given to patient. Patient had labs drawn then met with Delfina Graves CNP and research nurse. PE completed by Delfina Graves CNP. Patient is a Male with PV. Patient is willing and able to comply with the protocol for the durationof the study including undergoing treatment and scheduled visits and examinations. Pt here with his . No phlebotomies needed since last visit. Pt denies headaches. He reports erythema, swelling and minimal itching with each injection. The injection sites remain reddened and swollen for about 3 days and then the firmness lasts until the next injection, 7 days. Pt states there was one 40 mg injection of PTG-300 that did not have an injection reaction. Patient does continue to meet eligibility to proceed with therapy Concomitant medications reviewed per protocol: yes Changes per patient: No Quality of life questionnaire completed per protocol: n/a Clinical trial labs completed per protocol: Yes VS completed per protocol: Yes ECO EKG: Screening QTcF 414 ms. Week [address]: not required this visit Spleen: 0 cm MPN-SAF (MPN-10) TSS: Perameter Score (0 if absent to 10 if worst imaginable) In the past 24 hours: Fatigue 0 In the past 7 days: Early satiety 0 Abdominal pain (and discomfort) 0 Inactivity 0 Concentration 0 Night sweats 1 Pruritus 1 Diffuse Bone pain (not joint pain/arthritis) 0 Fever (>100 F, 10 = daily) 0 Weight loss (or gain) in past 6 months 0 Overall QoL 0 Enrique WILLINGHAM et alJ Clin Oncol 2012;30:[id number]. PAST MEDICAL HISTORY Diagnosis Date Status/Active Issues Elevated prostate specific antigen (PSA) 09/2020 Controlled Hypertension 10/2020 Controlled with medication REYMUNDO (obstructive sleep apnea) ~2018 Uncontrolled/does not use CPAP Polycythemia Vera 09/2020 Uncontrolled Seasonal allergic rhinitis due to pollen *greater than 30 years Controlled with medication DVT, left upper arm after clavicle repair 2001 Lump to right side of neck, *pt reported-lypoma?? 2015 2015 PAST SURGICAL HISTORY Procedure Laterality Date CLAVICLE LEFT REPAIR 2001 COLONOSCOPY 2014 DIAGNOSTIC ARTHROSCOPY KNEE Right ~2006 Inguinal hernia repair ~1979 INGUINAL HERNIA MESH REPAIR HX ~1998 REMOVE TONSILS/ADENOIDS,<12 Y/O ~ Social history: Smoking status: nonsmoker ETOH intake: Drinks on average 1-2 times per week, 2 rum and cokes. Denies recreational drug use. 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 HTN 10/2020 multivitamin with minerals (ONE-A-DAY 50 PLUS ORAL) 1 tab PO daily Health *greater than 8 years aspirin 81 mg cap 81 mg PO daily Heart/PV 2018 Kenalog injection 60 mg IM twice a year Seasonal allergies ~1989 Zithromax 500 mg po first day and 250 mg daily for 4 days Sinus congestion ~03/11/2021 Stopped 03/15/2021 Flonase 2 sprays in each nostril daily Sinus congestion ~03/11/2021 Stopped 03/15/2021 Sulfacetamide eye gtts, 10% 2 gtts in each eye for QID Eye infection ~03/11/2021 Stopped ~03/17/2021 Tylenol 1 gram PO TID PRN Headaches 03/02/2021 Hydrocortiscone cream, OTC Apply to area BID Injection site reaction 03/19/2021 Prior PV therapy: Phlebotomies 11/2020 to present Baseline toxicities per CTCAE v. 5: All predate therapy, are chronic conditions and will not be actively followed unless they worsen during the clinical trial. Pruritus Grade 1. Baseline. Start date: 12/2020. Resolve date: ongoing. Drugs to treat: none. Outcome: present intermittently Night sweats Grade 1. Baseline. Start date: 2018. Resolve date: ongoing. Drugs to treat: none. Outcome: present intermittently Bone pain (legs)Grade 1. Baseline. Start date: 12/2020. Resolve date: ongoing. Drugs to treat: none. Outcome: present intermittently Lump to right side of neck (lypoma?) Grade 1. Baseline. Start date: 2015. Resolve date: ongoing. Drugs to treat: none. Outcome: still present Toxicities per CTCAE v.5: 05/21/2021 Anemia Grade 1. RELATED to PTG-300. Start date: 03/13/2021. Resolve date: ongoing. Drugs to treat: none. Outcome: still present Injection site reaction (firmness) Grade 1. RELATED to PTG-300. Start date: 04/23/2021. Resolve date: ongoing with each weekly injection. Drugs to treat: hydrocortisone, ice. Outcome: present intermittently with each injection of PTG- 300 and resolves 6-7 days after the injection Injection site reaction (erythema, swelling) Grade 1. RELATED to PTG-300. Start date: 04/23/2021. Resolve date: ongoing with each weekly injection. Drugs to treat: hydrocortisone, ice. Outcome: present intermittently with each injection of PTG-300 and resolves 3-4 days after the injection Resolved: Headaches Grade 2. POSSIBLY RELATED. Start date: 03/02/2021. Resolve date: 03/24/2021. Drugs to treat:flonase, zithromax, tylenol. Outcome: resolved Sinus congestion Grade 2. UNRELATED. Start date: 03/06/2021. Resolve date: 03/24/2021. Drugs to treat:flonase, zithromax, tylenol. Outcome: resolved Injection site reaction (erythema, itching, swelling, firmness) Grade 1. RELATED. Start date: 03/05/2021. Resolve date: 03/09/2021. Drugs to treat: none. Outcome: resolved Injection site reaction (erythema, itching, swelling, firmness) Grade 1. RELATED. Start date: 03/12/2021. Resolve date: 03/17/2021. Drugs to treat: none. Outcome: resolved Injection site reaction (erythema, itching, swelling, firmness) Grade 1. RELATED. Start date: 03/19/2021. Resolve date: 03/21/2021. Drugs to treat: ice, hydrocortisone cream. Outcome: resolved Eye infection Grade 2. UNRELATED. Start date: ~03/11/2021. Resolve date: ~03/17/2021. Drugs to treat: sulfacetamide tts. Outcome: resolved Injection site reaction (erythema, itching, swelling, bruising, firmness) Grade 1. RELATED. Start date: 03/26/2021. Resolve date: 04/02/2021. Drugs to treat: ice. Outcome: resolved Injection site reaction (erythema, itching, swelling, firmness) Grade 1. RELATED. Start date: 04/02/2021. Resolve date: 04/09/2021. Drugs to treat: ice.. Outcome: resolved Injection site reaction (erythema, itching, swelling, firmness) Grade 1. RELATED. Start date: 04/09/2021. Resolve date: 04/16/2021. Drugs to treat: ice. Outcome: resolved Injection site reaction (erythema, itching, swelling, firmness) Grade 1. RELATED. Start date: 04/16/2021. Resolve date: 04/23/2021. Drugs to treat: ice Outcome:resolved Ankle swelling Grade 1. UNRELATED. Start date: 04/09/2021. Resolve date: 04/11/2021. Drugs to treat: none. Outcome: resolved Dosing: Reviewed administration directions for giving a SC injection and injection sites. Discussedrotation of injection sites and to not use the same site as the previous week. Pt verbalized understanding. Pt to self administered 60 mg PTG-300 SC injection at home today. Patient states he feels comfortable administering injections at home. Patient has research RN contact information and hem/oncfellow torsion spring coiling machine setter phone number. 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 Patient aware to call the research team for injection site reactions that do not resolve in 24 hours. Pt aware tylenol can be taken for injection site pain and may use ice. OTC Hydrocortisone cream may be used also. Pt verbalized understanding. Reviewed study drug log. Discussed storage of study medication in refrigerator and can be room temperature for 12 hours. Pt given a soft sided cooler bag and instructed to keep freezer packs in the freezer and bring back bag and ice packs with him to next visit in order to transport medication home. Patient verbalized understanding. Dispensed: The patient was given 8 syringes of PTG-300. Four at 40 mg each and four at 20 mg each as dispensed by the pharmacy. Instructed to return the diary and the empty cartons at next study visit. Use of the study medication diary and dosing instructions were reviewed with the patient. 20 mg Syringe #s: G3743, G3746, G3812, G3813 40 mg Syringe #s: H4322, H4323, H4408, H4411 The provider has reviewed and verified the information included within this note, including AE information Patient understands that the nurse or MD must be called prior to taking any new medications as wellas stopping any medications. Patient also understands to call nurse or MD should there any new medical issues arise and/or goes to the hospital for any reason. Patient is aware to monitor temperatureand to call and/or go to the nearest emergency room for temperatures of 100.4 or greater. Patient knows to call in the interim for any questions or concerns. Patient has contact information for Hannah Lyons RN Research Nurse and Dr. Ventura, along with the 24 hour On-Call number for the On-Call Oncology Fellow ([phone]). Patient understands that this participation is voluntary and may withdrawal at any time during the trial. Patient aware to RTC on 06/18/2021 for Week 17 of PTG 1Z21. Hannah Lyons RN documented in this encounterW[facility]04-07-[facility] Nurse Note* Nargis Arita LPN - 05/21/2021 10:48 AM EDT Clinical questionnaires incomplete due to Patient declined to complete or answer questions with nurse * Nargis Arita LPN - 05/21/2021 10:48 AM EDT Additional intake questions: Has the patient had fever, nausea, vomiting, diarrhea, constipation, fatigue for > 1 week? No Does the patient have a decreased appetite? No Does patient want to see a Service Order Expediter? No (yes to any of above refer patient to schedulers for dietitian appointment) ) Does patient have any new or increased numbness or tingling of extremities? No Is patient interested in fertility information? No Does patient need any prescription refills? No Does patient have an advanced directive in place? No, Patient refused referral to Social Work or Resource Center documented in this encounterW[facility]04-07-2022 History of Present illness Narrative* Meghan Graves APRN.CHAMFERING MACHINE OPERATOR - 05/21/2021 10:30 AM EDT Some elements copied from my note on 04/23/2021, the elements have been updated and all reflect current decision making from today, 05/21/2021. [facility] Clinical Note Assessment and Plan In summary: Mr. Leos is a 56 year old gentleman with polycythemia vera. Problem List Polycythemia vera 2016 WHO Diagnostic Criteria for PV*: Major Criteria Present 1. Hemoglobin > 16.5 g/dL in men, > 16.0 g/dL in women, or Hematocrit > 49% in men, >48% in women Yes 2. BM biopsy showing hypercellularity for age with trilineage growth (panmyelosis) including prominent erythroid, granulocytic, and megakaryocytic proliferation with pleomorphic, mature megakaryocytes (differences in size) Not Done 3. 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 Subnormal serum erythropoietin level Yes *Must either all 3 major criteria, or the first 2 major criteria and the minor criterion He had not had a bone marrow biopsy yet. It is not needed for diagnosis, but additional informationcan be obtained. Some reports note that upwards of 20% of patients with PV will have a chromosomal abnormality at the time of diagnosis. The common changes at presentation of PV are trisomies for 1q,8, 9, as well as del(20)(q11). Having an abnormal karyotype is associated with increased age as well as having received either radioactive phosphorous, or cytotoxic agents, particularly busulphan. Only 13q- and chromosome 1 abnormalities have been correlated with disease transformation to myelofibrosis. Polycythemia Risk Model: Variable Parameter Points Age >/= 67 y (5) 57-66 y (2) < 57 y (0) 55 year old 2 WBC > 25 No 0 Prior Thrombosis No 0 Total 2 Risk Group Intermediate Points Risk Group Median OS (y) 0 Low 27.8 1-2 Intermediate 18.9 3-7 High 10.9 The cumulative incidence of post-PV AML, with as a competing risk: 2.3% at 10 years, 5.5% at 15 years and 7.9% at 20 years. Leukemia. 2013 Oct;27(9):5694-81. By the classic thrombosis risk model, he has low risk disease. The goal would be a hematocrit below45%. This can be done with phlebotomies alone, or cytoreductive agent if he does not tolerate phlebotomies. He is on daily ASA. He was consented for the trial with PTG-300 (rusferitide) and is now week 9 of the trial His rusferitide dose was increased to 40 mg weekly during last visit. His HCT is below target of 42% and therefore, dose will be further increased to 60 mg weekly 04/23/21. Meghan Graves APRN.CHAMFERING MACHINE OPERATOR CC: Robert Rodríguez, DO Visit Details Reffering Physician Robert Cummings [address] [place] [address] [place] [address] Reason for Visit Anil Leos is here for follow up. Past Medical History Anil Leos is a 55 year old gentleman with a history of erythrocytosis. He also has a history of elevated PSA, HTN, and REYMUNDO (not on CPAP). He did have a left upper arm DVT in 1999 was provoked by a left clavicle surgery. He had an elevated hemoglobin as far back as August 2013 (but it was normalagain in January of 2015). In September of 2020 he had a hemoglobin of 18.8 g/dL. Subsequent erythropoietin testing was 1.1 mIU/mL. Testing of the peripheral blood on 10/16/2020 was negative for BCR-ABL,but positive for JAK2 V617F (VAF 47%). His symptoms include occasional headaches, which were improved with treatment of his hypertension. He is feeling well overall and offers no new complaints. He denies any dizziness, chest pain, palpitations or, dyspnea on exertion, no blurry vision, has pruritus to scalp and face intermittently, No early satiety or weight loss. He has no other prior venous thromboembolic events. No prior strokes. He is here today for follow up. Overall he is feeling well and offers no complaints. He had a lypoma near his right clavicle removed about a month ago and it is healing well. An inventory of his MPN symptoms are as follows. MPN-SAF (MPN-10) TSS: Perameter Score (0 if absent to 10 if worst imaginable) In the past 24 hours: Fatigue 0 In the past 7 days: Early satiety 0 Abdominal pain (and discomfort) 0 Inactivity 0 Concentration 0 Night sweats 1 Pruritus 1 Diffuse Bone pain (not joint pain/arthritis) 0 Fever (>100 F, 10 = daily) 0 Weight loss (or gain) in past 6 months 0 Overall QoL 0 Enrique WILLINGHAM et alJ Clin Oncol 2012;30:3168-8173. Review of Systems PAIN ASSESSMENT: Negative for pain, history of chronic pain, or current treatment for a chronic pain condition GENERAL: No weight loss, malaise or fevers. HEENT: Positive forsignificant headaches, now resolved. No changes in hearing or vision, no nose bleeds or other nasal problems RESPIRATORY: Negative for cough, hemoptysis, wheezing or shortness of breath CARDIOVASCULAR: Negative for chest pain, leg swelling or palpitations. GI: no nausea, vomiting, or diarrhea : No history of dysuria, frequency or incontinence. MUSCULOSKELETAL: Negative for joint pain, back pain or muscle pain. SKIN: Negative for lesions, rash, Positive for intermittent itching to scalp and face, unchanged. HEMATOLOGY/LYMPHOLOGY: Negative for prolonged bleeding, bruising easily or swollen nodes. NEURO: No history of headaches, syncope, paralysis, seizures or tremors Adjunct Histories PAST MEDICAL HISTORY Diagnosis Date Elevated prostate specific antigen (PSA) Hypertension REYMUNDO (obstructive sleep apnea) Polycythemia Seasonal allergic rhinitis due to pollen PAST SURGICAL HISTORY Procedure Laterality Date ARTHROSCOPY KNEE DIAGNOSTIC W/WO SYNOVIAL BX SPX Right CLAVICLE LEFT COLONOSCOPY 2014 INGUINAL HERNIA REPAIR HX TONSILLECTOMY & ADENOIDECTOMY <AGE 12 Family History Reviewed Including Cardiac Diseases, Psychiatric Diseases, & Substance Abuse Problem: Hypertension Relation: Mother Age of Onset: (Not Specified) Problem: Heart disease Relation: Mother Age of Onset: (Not Specified) Problem: Cancer Relation: Mother Age of Onset: (Not Specified) Problem: Colon Cancer Relation: Mother Age of Onset: (Not Specified) Problem: Lymphoma Relation: Mother Age of Onset: (Not Specified) Problem: Hypertension Relation: Father Age of Onset: (Not Specified) Problem: Diabetes Relation: Father Age of Onset: (Not Specified) Problem: Hypertension Relation: Sister Age of Onset: (Not Specified) Problem: Parkinson s Disease Relation: Maternal Grandmother Age of Onset: (Not Specified) Problem: Lung Cancer Relation: Paternal Grandmother Age of Onset: (Not Specified) Problem: Stroke Relation: Paternal Grandfather Age of Onset: (Not Specified) Social History Tobacco Use Smoking status: Never Smoker Smokeless tobacco: Never Used Vaping Use Vaping Use: Never used Substance Use Topics Alcohol use: Yes Drug use: Not Currently Allergies and Medications ALLERGIES Allergen Reactions Bactrim [Sulfametho* Rash alcohol swabs Apply 1 Each to affected area one time a week. Oral Medication Containers (SHARPS CONTAINER) misc 1 Container as directed. KRILL OIL ORAL Take by mouth twice daily. amLODIPine (NORVASC) 5 mg tablet Take 5 mg by mouth once daily. multivitamin with minerals (ONE-A-DAY 50 PLUS ORAL) Take by mouth once daily. aspirin 81 mg cap Take by mouth once daily. Exam Vital Signs BP 134/74 Pulse 73 Temp (Src) 98.1 (Oral) Resp 18 Ht 5' 9.528 (1.77m) Wt 191 lb 6.4 oz (86.8kg) SpO2 100% BMI 27.84 kg/(m^2). Performance Status Karnofsky Scale:100 - Normal, no complaints, no evidence of disease. ECOG/Zubrod Performance Scale: 0- Fully active, able to carry on all pre-disease performance w/o restriction. Examination General Appearance: Well appearing, alert, in no acute distress, well-hydrated, well nourished. Skin: Skin color, texture, turgor normal, no suspicious rashes or lesions HEENT: Anicteric sclera Respiratory: Lungs clear to auscultation. No wheezing, rhonchi, rales Heart: RRR without murmur Abdomen: Abdomen soft, non-tender. Bowel sounds normal. No masses, spleen tip measures 0 cm below the left costal margin at the midclavicular line. Extremeties: No deformities, edema Muskuloskeletal: No joint swelling Objective Data Labs and Imaging Reviewed outside records provided prior to this visit and those [facility] No data available for this section [facility]* Diagnosis Polycythemia vera (HCC)- Primary documented in this [facility]* Diagnosis Polycythemia vera (HCC)- Primary documented in this encounter [facility] note* Diagnosis Polycythemia vera (HCC)- Primary documented in this encounter [facility] note* Diagnosis Polycythemia vera (HCC)- Primary documented in this encounter [facility] note* Diagnosis Polycythemia vera (HCC)- Primary documented in this encounter [facility] note* Diagnosis Polycythemia vera (HCC)- Primary documented in this encounter [facility] note* Diagnosis Polycythemia vera (HCC)- Primary documented in this encounter [facility] note* Diagnosis Polycythemia vera (HCC)- Primary documented in this encounter [facility] note* Diagnosis Splenomegaly, not elsewhere classified documented in this encounter [facility] note* 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 Chronic erythremia in remission documented in this encounter [facility] note* Diagnosis Polycythemia vera (HCC)- Primary documented in this encounter [facility] note* Diagnosis Polycythemia vera (HCC)- Primary documented in this encounter [facility] note* Diagnosis Polycythemia vera (HCC)- Primary documented in this [facility] note* Diagnosis Polycythemia vera (HCC)- Primary documented in this encounter [facility] note* Diagnosis Polycythemia vera (HCC)- Primary documented in this [facility] note* Diagnosis Polycythemia vera (HCC)- Primary documented in [facility] note* Diagnosis Polycythemia vera (HCC)- Primary documented in this [facility] note* Diagnosis Polycythemia vera (HCC)- Primary documented in this encounter [facility] note* Diagnosis Splenomegaly, not elsewhere classified- Primary documented in this encounter [facility] note* Diagnosis Polycythemia vera (HCC)- Primary documented in this encounter [facility] note* Diagnosis Splenomegaly, not elsewhere classified documented in this encounter [facility] note* Diagnosis Polycythemia vera (HCC)- Primary documented in this encounter [facility] note* Diagnosis Polycythemia vera (HCC)- Primary documented in this encounter [facility] note* Diagnosis Polycythemia vera (HCC)- Primary Research study patient Dizziness Dizziness and giddiness documented in this encounter [facility] note* Diagnosis Polycythemia vera (HCC)- Primary documented in this encounter [facility] note* Diagnosis Polycythemia vera (HCC)- Primary documented in this encounter [facility] noteNo [place] [facility] Other [facility] note* Diagnosis PV (polycythemia vera) (HCC) Polycythemia vera documented in this encounter [facility] note* Diagnosis Polycythemia vera (HCC)- Primary Research study patient Bilateral cold feet documented in this encounter [facility] note* Diagnosis Polycythemia rubra vera (HCC)- Primary Polycythemia vera documented in this encounter [facility] note* Diagnosis Polycythemia vera (HCC)- Primary Research study patient documented in this [facility] note* Diagnosis Polycythemia vera (HCC)- Primary documented in this encounter [facility] note* Diagnosis Polycythemia vera (HCC)- Primary documented in this [facility] note* Diagnosis Polycythemia vera (HCC) documented in [facility] noteNo assessment [facility] Phone[facility]* Diagnosis Polycythemia vera (HCC)- Primary Research study patient documented [facility] encounter [facility] note* Diagnosis Onset Date Resolution Status Dysfunction of left eustachian tube acute Otitis media acute Seasonal allergic rhinitis due to pollen acute [facility] Work Phone: Evaluation note* Diagnosis Polycythemia vera (HCC)- Primary documented in this encounter [facility] general Narrative - Reported* Type Description Date Medical History Obstructive sleep apnea Medical History Benign prostatic hyp erplasia with lower urinary tract symptoms Medical History Polycythemia vera Medical History Essential (primary) hypertension Medical History Elevated PSA Medical History Seasonal allergic rhinitis due t o pollen Surgical History ARTHROSCOPY, RIGHT KNEE Surgical History Back Surgery Surgical History COLONOSCOPY Surgical History Hernia Repair Surgical History right knee menscus Surgical History REPAIR LEFT CLAVICLE, OPEN APPR OACH Surgical History REPAIR, INGUINAL HERNIA, SLIDIN G Surgical History LEFT CLAVICAL Hospitalization History SEE SURGICAL HX [facility] Other History general Narrative - Reported* Type Description Date Medical History Obstructive sleep apnea Medical History Benign prostatic hyp erplasia with lower urinary tract symptoms Medical History Polycythemia vera Medical History Essential (primary) hypertension Medical History Elevated PSA Medical History Seasonal allergic rhinitis due t o pollen Medical History splenomegaly Surgical History ARTHROSCOPY, RIGHT KNEE Surgical History Back Surgery Surgical History COLONOSCOPY Surgical History Hernia Repair Surgical History right knee menscus Surgical History REPAIR LEFT CLAVICLE, OPEN APPR OACH Surgical History REPAIR, INGUINAL HERNIA, SLIDIN G Surgical History LEFT CLAVICAL Hospitalization History SEE SURGICAL HX [facility] Other Hospital Discharge instructions No data available for this section [facility] Summary Purpose Family History No Family History Records Found Relationship Condition Age at Onset Recorded Date/T sue father Diabetes mellitus Unknown Hypertension Unknown Not Specified Heart disease Unknown Malignant neoplasm Unknown Advance Directives No Advanced Directives Records Found Advance Directive Response Recorded Date/ Time Advance Directives No May 30, 024 9:04am Reason for Referral Specialty Diagnoses / Procedures Referred By Contac t Referred To Contact CT IMAGING Diagnoses Polycythemia vera (HCC) Procedures CT ABDOMEN WO IVCON CT ABDOMEN W/O CONTRAST Annie Abreu, JACKELYN.CHAMFERING MACHINE OPERATOR [address] [place] [address] Ct [facility] [place] [address] Referral ID Status Reason Start Date Expiration Date V isits Requested Visits Authorized [id number] Closed Auto-Generate d Referral 05/19/2023 04/29/2024 1 1 Specialty Diagnoses / Procedures Referred By Contac t Referred To Contact CT IMAGING Diagnoses PV (polycythemia vera) (HCC) Procedures CT ABDOMEN WO IVCON [place] ABDOMEN [place] [address] [place] [address] [address] [facility] [place] [address] Referral ID Status Reason Start Date Expiration Date V isits Requested Visits Authorized [id number] Closed Auto-Generate d Referral 12/02/2022 12/11/2023 1 1 Specialty Diagnoses / Procedures Referred By Contac t Referred To Contact CT IMAGING Diagnoses Splenomegaly, not elsewhere classified Procedures CT ABDOMEN WO IVCON CT ABDOMEN W/O CONTRAST Elizabeth Dunn, CONFIGURATION MANAGEMENT ANALYST.CHAMFERING MACHINE OPERATOR [address] [place] [id number] Imaging Referral ID Status Reason Start Date Expiration Date V isits Requested Visits Authorized [id number] Closed Auto-Generate d Referral 05/22/2021 10/06/2021 1 1 Chief Complaint and Reason for Visit Chief Complaint allergy shot Chief Complaint allergy shot left ear pain Reason for Visit Dysfunction of left eustachian tube Otitis media Seasonal allergic rhinitis due to pollen Additional Source Comments Source Comments (unrecognize d section and content) In the event this informatio n is protected by the Federal Confidentiality of Alcohol and Drug Abuse Patient Records regulations: The Federal rules restrict any use of the information to criminally investigate or prosecute any alcohol or drug abuse patient.[facility]In the event this information is protected by the Federal Confidentiality of Alcohol and Drug Abuse Patient Records regulations: The Federal rules restrict any use of the information to criminally investigate or prosecute any alcohol or drug abuse patient.[facility] the event this information is protected by the Federal Confidentiality of Alcohol and Drug Abuse Patient Records regulations: The Federal rules restrict any use of the information to criminally investigate or prosecute any alcohol or drug abuse patient.[facility] HospitalIn the event this information is protected by the Federal Confidentiality of Alcohol and Drug Abuse Patient Records regulations: The Federal rules restrict any use of the information to criminally investigate or prosecute any alcohol or drug abuse patient.[facility] HospitalIn the event this information is protected by the Federal Confidentiality of Alcohol and Drug Abuse Patient Records regulations: The Federal rules restrict any use of the information to criminally investigate or prosecute any alcohol or drug abuse patient.[facility] HospitalIn the event this information is protected by the Federal Confidentiality of Alcohol and Drug Abuse Patient Records regulations: The Federal rules restrict any use of the information to criminally investigate or prosecute any alcohol or drug abuse patient.[facility] HospitalIn the event this information is protected by the Federal Confidentiality of Alcohol and Drug Abuse Patient Records regulations: The Federal rules restrict any use of the information to criminally investigate or prosecute any alcohol or drug abuse patient.[facility] HospitalIn the event this information is protected by the Federal Confidentiality of Alcohol and Drug Abuse Patient Records regulations: The Federal rules restrict any use of the information to criminally investigate or prosecute any alcohol or drug abuse patient.[facility] HospitalIn the event this information is protected by the Federal Confidentiality of Alcohol and Drug Abuse Patient Records regulations: The Federal rules restrict any use of the information to criminally investigate or prosecute any alcohol or drug abuse patient.[facility] HospitalIn the event this information is protected by the Federal Confidentiality of Alcohol and Drug Abuse Patient Records regulations: The Federal rules restrict any use of the information to criminally investigate or prosecute any alcohol or drug abuse patient.[facility] HospitalIn the event this information is protected by the Federal Confidentiality of Alcohol and Drug Abuse Patient Records regulations: The Federal rules restrict any use of the information to criminally investigate or prosecute any alcohol or drug abuse patient.[facility] HospitalIn the event this information is protected by the Federal Confidentiality of Alcohol and Drug Abuse Patient Records regulations: The Federal rules restrict any use of the information to criminally investigate or prosecute any alcohol or drug abuse patient.[facility] HospitalIn the event this information is protected by the Federal Confidentiality of Alcohol and Drug Abuse Patient Records regulations: The Federal rules restrict any use of the information to criminally investigate or prosecute any alcohol or drug abuse patient.[facility] HospitalIn the event this information is protected by the Federal Confidentiality of Alcohol and Drug Abuse Patient Records regulations: The Federal rules restrict any use of the information to criminally investigate or prosecute any alcohol or drug abuse patient.[facility] HospitalIn the event this information is protected by the Federal Confidentiality of Alcohol and Drug Abuse Patient Records regulations: The Federal rules restrict any use of the information to criminally investigate or prosecute any alcohol or drug abuse patient.[facility] HospitalIn the event this information is protected by the Federal Confidentiality of Alcohol and Drug Abuse Patient Records regulations: The Federal rules restrict any use of the information to criminally investigate or prosecute any alcohol or drug abuse patient.[facility] HospitalIn the event this information is protected by the Federal Confidentiality of Alcohol and Drug Abuse Patient Records regulations: The Federal rules restrict any use of the information to criminally investigate or prosecute any alcohol or drug abuse patient.[facility] HospitalIn the event this information is protected by the Federal Confidentiality of Alcohol and Drug Abuse Patient Records regulations: The Federal rules restrict any use of the information to criminally investigate or prosecute any alcohol or drug abuse patient.[facility] HospitalIn the event this information is protected by the Federal Confidentiality of Alcohol and Drug Abuse Patient Records regulations: The Federal rules restrict any use of the information to criminally investigate or prosecute any alcohol or drug abuse patient.[facility] HospitalIn the event this information is protected by the Federal Confidentiality of Alcohol and Drug Abuse Patient Records regulations: The Federal rules restrict any use of the information to criminally investigate or prosecute any alcohol or drug abuse patient.[facility] HospitalIn the event this information is protected by the Federal Confidentiality of Alcohol and Drug Abuse Patient Records regulations: The Federal rules restrict any use of the information to criminally investigate or prosecute any alcohol or drug abuse patient.[facility] HospitalIn the event this information is protected by the Federal Confidentiality of Alcohol and Drug Abuse Patient Records regulations: The Federal rules restrict any use of the information to criminally investigate or prosecute any alcohol or drug abuse patient.[facility] HospitalIn the event this information is protected by the Federal Confidentiality of Alcohol and Drug Abuse Patient Records regulations: The Federal rules restrict any use of the information to criminally investigate or prosecute any alcohol or drug abuse patient.[facility] HospitalIn the event this information is protected by the Federal Confidentiality of Alcohol and Drug Abuse Patient Records regulations: The Federal rules restrict any use of the information to criminally investigate or prosecute any alcohol or drug abuse patient.[facility] HospitalIn the event this information is protected by the Federal Confidentiality of Alcohol and Drug Abuse Patient Records regulations: The Federal rules restrict any use of the information to criminally investigate or prosecute any alcohol or drug abuse patient.[facility] HospitalIn the event this information is protected by the Federal Confidentiality of Alcohol and Drug Abuse Patient Records regulations: The Federal rules restrict any use of the information to criminally investigate or prosecute any alcohol or drug abuse patient.[facility] HospitalIn the event this information is protected by the Federal Confidentiality of Alcohol and Drug Abuse Patient Records regulations: The Federal rules restrict any use of the information to criminally investigate or prosecute any alcohol or drug abuse patient.[facility] HospitalIn the event this information is protected by the Federal Confidentiality of Alcohol and Drug Abuse Patient Records regulations: The Federal rules restrict any use of the information to criminally investigate or prosecute any alcohol or drug abuse patient.[facility] HospitalIn the event this information is protected by the Federal Confidentiality of Alcohol and Drug Abuse Patient Records regulations: The Federal rules restrict any use of the information to criminally investigate or prosecute any alcohol or drug abuse patient.[facility] HospitalIn the event this information is protected by the Federal Confidentiality of Alcohol and Drug Abuse Patient Records regulations: The Federal rules restrict any use of the information to criminally investigate or prosecute any alcohol or drug abuse patient.[facility] HospitalIn the event this information is protected by the Federal Confidentiality of Alcohol and Drug Abuse Patient Records regulations: The Federal rules restrict any use of the information to criminally investigate or prosecute any alcohol or drug abuse patient.[facility] HospitalIn the event this information is protected by the Federal Confidentiality of Alcohol and Drug Abuse Patient Records regulations: The Federal rules restrict any use of the information to criminally investigate or prosecute any alcohol or drug abuse patient.[facility] HospitalIn the event this information is protected by the Federal Confidentiality of Alcohol and Drug Abuse Patient Records regulations: The Federal rules restrict any use of the information to criminally investigate or prosecute any alcohol or drug abuse patient.[facility] HospitalIn the event this information is protected by the Federal Confidentiality of Alcohol and Drug Abuse Patient Records regulations: The Federal rules restrict any use of the information to criminally investigate or prosecute any alcohol or drug abuse patient.[facility] HospitalIn the event this information is protected by the Federal Confidentiality of Alcohol and Drug Abuse Patient Records regulations: The Federal rules restrict any use of the information to criminally investigate or prosecute any alcohol or drug abuse patient.[facility] HospitalIn the event this information is protected by the Federal Confidentiality of Alcohol and Drug Abuse Patient Records regulations: The Federal rules restrict any use of the information to criminally investigate or prosecute any alcohol or drug abuse patient.[facility] HospitalIn the event this information is protected by the Federal Confidentiality of Alcohol and Drug Abuse Patient Records regulations: The Federal rules restrict any use of the information to criminally investigate or prosecute any alcohol or drug abuse patient.[facility] HospitalIn the event this information is protected by the Federal Confidentiality of Alcohol and Drug Abuse Patient Records regulations: The Federal rules restrict any use of the information to criminally investigate or prosecute any alcohol or drug abuse patient.[facility] HospitalIn the event this information is protected by the Federal Confidentiality of Alcohol and Drug Abuse Patient Records regulations: The Federal rules restrict any use of the information to criminally investigate or prosecute any alcohol or drug abuse patient.[facility] HospitalIn the event this information is protected by the Federal Confidentiality of Alcohol and Drug Abuse Patient Records regulations: The Federal rules restrict any use of the information to criminally investigate or prosecute any alcohol or drug abuse patient.[facility] HospitalIn the event this information is protected by the Federal Confidentiality of Alcohol and Drug Abuse Patient Records regulations: The Federal rules restrict any use of the information to criminally investigate or prosecute any alcohol or drug abuse patient.[facility] HospitalIn the event this information is protected by the Federal Confidentiality of Alcohol and Drug Abuse Patient Records regulations: The Federal rules restrict any use of the information to criminally investigate or prosecute any alcohol or drug abuse patient.[facility] HospitalIn the event this information is protected by the Federal Confidentiality of Alcohol and Drug Abuse Patient Records regulations: The Federal rules restrict any use of the information to criminally investigate or prosecute any alcohol or drug abuse patient.[facility] HospitalIn the event this information is protected by the Federal Confidentiality of Alcohol and Drug Abuse Patient Records regulations: The Federal rules restrict any use of the information to criminally investigate or prosecute any alcohol or drug abuse patient.[facility] HospitalIn the event this information is protected by the Federal Confidentiality of Alcohol and Drug Abuse Patient Records regulations: The Federal rules restrict any use of the information to criminally investigate or prosecute any alcohol or drug abuse patient.[facility] HospitalIn the event this information is protected by the Federal Confidentiality of Alcohol and Drug Abuse Patient Records regulations: The Federal rules restrict any use of the information to criminally investigate or prosecute any alcohol or drug abuse patient.[facility] HospitalIn the event this information is protected by the Federal Confidentiality of Alcohol and Drug Abuse Patient Records regulations: The Federal rules restrict any use of the information to criminally investigate or prosecute any alcohol or drug abuse patient.[facility] HospitalIn the event this information is protected by the Federal Confidentiality of Alcohol and Drug Abuse Patient Records regulations: The Federal rules restrict any use of the information to criminally investigate or prosecute any alcohol or drug abuse patient.[facility] HospitalIn the event this information is protected by the Federal Confidentiality of Alcohol and Drug Abuse Patient Records regulations: The Federal rules restrict any use of the information to criminally investigate or prosecute any alcohol or drug abuse patient.[facility] HospitalIn the event this information is protected by the Federal Confidentiality of Alcohol and Drug Abuse Patient Records regulations: The Federal rules restrict any use of the information to criminally investigate or prosecute any alcohol or drug abuse patient.[facility] HospitalIn the event this information is protected by the Federal Confidentiality of Alcohol and Drug Abuse Patient Records regulations: The Federal rules restrict any use of the information to criminally investigate or prosecute any alcohol or drug abuse patient.[facility] HospitalIn the event this information is protected by the Federal Confidentiality of Alcohol and Drug Abuse Patient Records regulations: The Federal rules restrict any use of the information to criminally investigate or prosecute any alcohol or drug abuse patient.[facility] HospitalIn the event this information is protected by the Federal Confidentiality of Alcohol and Drug Abuse Patient Records regulations: The Federal rules restrict any use of the information to criminally investigate or prosecute any alcohol or drug abuse patient.[facility] HospitalIn the event this information is protected by the Federal Confidentiality of Alcohol and Drug Abuse Patient Records regulations: The Federal rules restrict any use of the information to criminally investigate or prosecute any alcohol or drug abuse patient.[facility] HospitalIn the event this information is protected by the Federal Confidentiality of Alcohol and Drug Abuse Patient Records regulations: The Federal rules restrict any use of the information to criminally investigate or prosecute any alcohol or drug abuse patient.[facility] HospitalIn the event this information is protected by the Federal Confidentiality of Alcohol and Drug Abuse Patient Records regulations: The Federal rules restrict any use of the information to criminally investigate or prosecute any alcohol or drug abuse patient.[facility] HospitalIn the event this information is protected by the Federal Confidentiality of Alcohol and Drug Abuse Patient Records regulations: The Federal rules restrict any use of the information to criminally investigate or prosecute any alcohol or drug abuse patient.[facility] HospitalIn the event this information is protected by the Federal Confidentiality of Alcohol and Drug Abuse Patient Records regulations: The Federal rules restrict any use of the information to criminally investigate or prosecute any alcohol or drug abuse patient.[facility] HospitalIn the event this information is protected by the Federal Confidentiality of Alcohol and Drug Abuse Patient Records regulations: The Federal rules restrict any use of the information to criminally investigate or prosecute any alcohol or drug abuse patient.[facility] HospitalIn the event this information is protected by the Federal Confidentiality of Alcohol and Drug Abuse Patient Records regulations: The Federal rules restrict any use of the information to criminally investigate or prosecute any alcohol or drug abuse patient.[facility] HospitalIn the event this information is protected by the Federal Confidentiality of Alcohol and Drug Abuse Patient Records regulations: The Federal rules restrict any use of the information to criminally investigate or prosecute any alcohol or drug abuse patient.[facility] HospitalIn the event this information is protected by the Federal Confidentiality of Alcohol and Drug Abuse Patient Records regulations: The Federal rules restrict any use of the information to criminally investigate or prosecute any alcohol or drug abuse patient.[facility] HospitalIn the event this information is protected by the Federal Confidentiality of Alcohol and Drug Abuse Patient Records regulations: The Federal rules restrict any use of the information to criminally investigate or prosecute any alcohol or drug abuse patient.[facility] HospitalIn the event this information is protected by the Federal Confidentiality of Alcohol and Drug Abuse Patient Records regulations: The Federal rules restrict any use of the information to criminally investigate or prosecute any alcohol or drug abuse patient.[facility] Reason for Visit (unrecogniz ed section and content) Reason Comments Radiology CT Specialty Diagnoses / Procedures Referred By Bisi jenkins Referred To Contact CT IMAGING Diagnoses Splenomegaly, not elsewhere classified Procedures CT ABDOMEN WO IVCON CT ABDOMEN W/O CONTRAST Meghan Graves, CONFIGURATION MANAGEMENT ANALYST.CHAMFERING MACHINE OPERATOR [address] [place] [address] Ct Imaging Referral ID Status Reason Start Date Expiration Date V isits Requested Visits Authorized [id number] Closed Auto-Generate d Referral 02/22/2022 03/24/2023 1 1 Reason Comments Established Patient Specialty Diagnoses / Procedures Referred By Bisi jenkins Referred To Contact Hematology/Oncology / HEMATOLOGY/ONCOLOGY Diagnoses Polycythemia vera STUDY PT IRB [id number] [facility] [id number] D4.5 DATE TIME PER SLIP QIANA C Procedures EST PATIENT/[place] [address] [place] [address] [place] [address] [place] [address] Referral ID Status Reason Start Date Expiration Date V isits Requested Visits Authorized [id number] Waiting for Response 09/10/2021 12/09/2021 1 1 Reason Comments Research PTG 1Z21/21-283 Part 1 week 13 visit Reason Comments Research PTG Part 1 week 17 visit Reason Comments Research PTG part 1 week 21 visit Reason Comments Research PTG week 25 visit Reason Comments Patient Question Research PTG Reason Comments Opened In Error Reason Comments Research PTG Pa rt 2 week 29 Specialty Diagnoses / Procedures Referred By Contac t Referred To Contact Radiology / RADIO CT SCAN MAIN CA LL Diagnoses Polycythemia vera STUDY PT NO AUTH NEEDED CHARGE TO RESEARCH IRB NCT [id number] D4.5 CT ABDOMEN W/O CONTRAST /NO IV OR PO PER SLIP QIANA C Procedures CT ABD & PELVIS W/CONTRAST CT WO ABD1 [address] [place] [address] [place] [address] Scan Main Ca Ll [address] [place] [address] Referral ID Status Reason Start Date Expiration Date Visits Re quested Visits Authorized [id number] Closed 09/10/2021 12/09/2021 1 1 Reason Comments Research PTG Part 2 week 33 visit Specialty Diagnoses / Procedures Referred By Bisi t Referred To Contact Hematology/Oncology / HEMATOLOGY/ONCOLOGY Diagnoses 152 [place] pt aware he is early STUDY PT IRB [facility] [id number] D4.5 DATE TIME RESCHEDULE QIANA C Procedures EST PATIENT/[place] [address] [place] [address] Elizabeth Dunn, CONFIGURATION MANAGEMENT ANALYST.CHAMFERING MACHINE OPERATOR [address] [place] [address] Referral ID Status Reason Start Date Expiration Date V isits Requested Visits Authorized [id number] Pending Review 08/11/2021 11/09/2021 1 1 Reason Comments Research PTG Part 2 week 41/Part 3 cycle 1 day 1 visit Reason Comments Appointment Reason Comments Research PTG Part 3 cycle 4 day 1 visit. Reason Comments Research PTG Part 3 cycle 6 day 1 visit Reason Comments Returning Patient's Call Reason Comments Research PTG Part 3 Cycle 12 day 1 visit Reason Comments Research PTG Part 3 Cycle 14 day 1 visit Specialty Diagnoses / Procedures Referred By Contac t Referred To Contact CT IMAGING Diagnoses PV (polycythemia vera) (HCC) Procedures CT ABDOMEN WO IVCON CT ABDOMEN W/[place] [address] [place] [address] [place] [address] Referral ID Status Reason Start Date Expiration Date V isits Requested Visits Authorized [id number] Closed Auto-Generate d Referral 12/02/2022 12/11/2023 1 1 Reason Comments Appointment Rescheduled Reason Comments Research PTG Part 3 Cycle 16 day 1 visit Reason Comments Research PTG 180 cons ent presentation Reason Comments Benefits Investigation Reason Comments Research PTG Z EOT Rollove r to PTG 1923 C1D1 Enrollment Reason Comments Research PTG -180 Pt s igned informed consent Reason Comments Research PTG EOT visitPTG -108 Screening/Week 0 visit Specialty Diagnoses / Procedures Referred By Contac t Referred To Contact CT IMAGING Diagnoses Polycythemia vera (HCC) Procedures CT ABDOMEN WO IVCON CT ABDOMEN W/O CONTRAST Annie Abreu APRN.CHAMFERING MACHINE OPERATOR [address] [facility] [address] [place] [address] Ct Imaging [id number] Referral ID Status Reason Start Date Expiration Date V isits Requested Visits Authorized [id number] Closed Auto-Generate d Referral 05/19/2023 04/29/2024 1 1 Reason Comments Research PTG - Week 4 visit Reason Comments Research PTG Week 8 visit Care Teams (unrecognized sec tion and content) Bpm Solution Architect Relationship Specialty Start Date End Date Tigre Rodríguez, [address] [place] [address] PCP - General Internal Medicine 10/16/20 [place] [id number] [place] [address] Physician Hematology/Oncology 12/30/20 Hannah Lyons, ALEXANDRO [address] [place] [address] Research Nurse Hematology 03/10/21 Bpm Solution Architect Relationship Specialty Start Date End Date Tigre Rodríguez, DO [address] [place] [address] PCP - General Internal Medicine 10/16/20 [place] [address] [place] [address] Physician Hematology/Oncology 12/30/20 Hannah Lyons, ALEXANDRO [address] [place] [address] Research Nurse Hematology 03/10/21 Bpm Solution Architect Relationship Specialty Start Date End Date Tigre Rodríguez, DO [address] [place] [address] PCP - General Internal Medicine 10/16/20 [place] [address] [place] [address] Physician Hematology/Oncology 12/30/20 Hannah Lyons, ALEXANDRO [address] [place] [address] Research Nurse Hematology 03/10/21 Bpm Solution Architect Relationship Specialty Start Date End Date Tigre Rodríguez, DO [address] [place] [address] PCP - General Internal Medicine 10/16/20 [place] [address] [place] [address] Physician Hematology/Oncology 12/30/20 Hannah Lyons, ALEXANDRO [address] [place] [address] Research Nurse Hematology 03/10/21 Bpm Solution Architect Relationship Specialty Start Date End Date Tigre Rodríguez, DO [address] [place] [address] PCP - General Internal Medicine 10/16/20 [place] [address] [place] [address] Physician Hematology/Oncology 12/30/20 Hannah Lyons, ALEXANDRO [address] [place] [address]20 Research Nurse Hematology 03/10/21 Bpm Solution Architect Relationship Specialty Start Date End Date Tigre Rodríguez, DO [address] [place] [address] PCP - General Internal Medicine 10/16/20 [place] [address] [place] [address] Physician Hematology/Oncology 12/30/20 Hannah Lyons, ALEXANDRO [address] [place] [address] Research Nurse Hematology 03/10/21 Bpm Solution Architect Relationship Specialty Start Date End Date Tigre Rodríguez, DO [address] [place] [address] PCP - General Internal Medicine 10/16/20 [place] [address] [place] [address] Physician Hematology/Oncology 12/30/20 Hannah Lyons, ALEXANDRO [address] [place] [address] Research Nurse Hematology 03/10/21 Bpm Solution Architect Relationship Specialty Start Date End Date Tigre Rodríguez, DO [address] [place] [address] PCP - General Internal Medicine 10/16/20 [place] [address] [place] [address] Physician Hematology/Oncology 12/30/20 Hannah Lyons, ALEXANDRO [address] [place] [address] Research Nurse Hematology 03/10/21 Bpm Solution Architect Relationship Specialty Start Date End Date Tigre Rodríguez, DO [address] [place] [address] PCP - General Internal Medicine 10/16/20 [place] [address] [place] [address] Physician Hematology/Oncology 12/30/20 Hannah Lyons, ALEXANDRO [address] [place] [address] 28564 Research Nurse Hematology 03/10/21 Bpm Solution Architect Relationship Specialty Start Date End Date Tigre Rodríguez, DO [address] [place] [address] PCP - General Internal Medicine 10/16/20 [place] [address] [place] [address] Physician Hematology/Oncology 12/30/20 Hannah Lyons, ALEXANDRO [address] [place] [address] Research Nurse Hematology 03/10/21 Bpm Solution Architect Relationship Specialty Start Date End Date Tigre Rodríguez, DO [address] [place] [address] PCP - General Internal Medicine 10/16/20 [place] [address] [place] [address] Physician Hematology/Oncology 12/30/20 Hannah Lyons, ALEXANDRO [address] [place] [address] Research Nurse Hematology 03/10/21 Bpm Solution Architect Relationship Specialty Start Date End Date Tigre Rodríguez, DO [address] [place] [address] PCP - General Internal Medicine 10/16/20 [place] [address] [place] [address] Physician Hematology/Oncology 12/30/20 Hannah Lyons, ALEXANDRO [address] [place] [address] Research Nurse Hematology 03/10/21 Bpm Solution Architect Relationship Specialty Start Date End Date Tigre Rodríguez, DO [address] [place] [address] PCP - General Internal Medicine 10/16/20 [place] [address] [place] [address] Physician Hematology/Oncology 12/30/20 Hannah Lyons, ALEXANDRO [address] [place] [address] Research Nurse Hematology 03/10/21 Bpm Solution Architect Relationship Specialty Start Date End Date Tigre Rodríguez, DO [address] [place] [address] PCP - General Internal Medicine 10/16/20 [place] [address] [place] [address] Physician Hematology/Oncology 12/30/20 Hannah Lyons, ALEXANDRO [address] [place] [address] 625[address] Research Nurse Hematology 03/10/21 Bpm Solution Architect Relationship Specialty Start Date End Date Tigre Rodríguez, DO [address] [place] [address] PCP - General Internal Medicine 10/16/20 [place] [address] [place] [address] Physician Hematology/Oncology 12/30/20 Hannah Lyons, ALEXANDRO [address] [place] [address] 77766 Research Nurse Hematology 03/10/21 Bpm Solution Architect Relationship Specialty Start Date End Date Tigre Rodríguez, DO [address] [place] [address] PCP - General Internal Medicine 10/16/20 [place] [address] [place] [address] Physician Hematology/Oncology 12/30/20 Hannah Lyons, ALEXANDRO [address] [place] [address] 52832 Research Nurse Hematology 03/10/21 Bpm Solution Architect Relationship Specialty Start Date End Date Tigre Rodríguez, DO [address] [place] [address] PCP - General Internal Medicine 10/16/20 [place] [address] [place] [address] Physician Hematology/Oncology 12/30/20 Hannah Lyons, ALEXANDRO [address] [place] [address]78 Research Nurse Hematology 03/10/21 Bpm Solution Architect Relationship Specialty Start Date End Date Tigre Rodríguez, DO [address] [place] [address] PCP - General Internal Medicine 10/16/20 [place] [address] [place] [address] Physician Hematology/Oncology 12/30/20 Hannah Lyons, ALEXANDRO [address] [place] [address] Research Nurse Hematology 03/10/21 Bpm Solution Architect Relationship Specialty Start Date End Date Tigre Rodríguez DO [address] [place] [address] PCP - General Internal Medicine 10/16/20 [place] [address] [place] [address] Physician Hematology/Oncology 12/30/20 Hannah Lyons RN [address] [place] [address] Research Nurse Hematology 03/10/21 Bpm Solution Architect Relationship Specialty Start Date End Date Tigre Rodríguez DO [address] [place] [address] PCP - General Internal Medicine 10/16/20 [place] [address] [place] [address] Physician Hematology/Oncology 12/30/20 Hannah Lyons RN [address] [place] [address] 60548 Research Nurse Hematology 03/10/21 Bpm Solution Architect Relationship Specialty Start Date End Date Tigre Rodríguez DO [address] [place] [address] PCP - General Internal Medicine 10/16/20 [place] [address] [place] [address] Physician Hematology/Oncology 12/30/20 Hannah Lyons RN [address] [place] [address] 9[address]71 Research Nurse Hematology 03/10/21 Bpm Solution Architect Relationship Specialty Start Date End Date Tigre Rodríguez DO [address] [place] [address] PCP - General Internal Medicine 10/16/20 [place] [address] [place] [address] Physician Hematology/Oncology 12/30/20 Hannah Lyons, ALEXANDRO [address] [place] [address] 17859 Research Nurse Hematology 03/10/21 Bpm Solution Architect Relationship Specialty Start Date End Date Tigre Rodríguez DO [address] [place] [address] PCP - General Internal Medicine 10/16/20 [place] [address] [place] [address] Physician Hematology/Oncology 12/30/20 Hannah Lyons, ALEXANDRO [address] [place] [address] 11693 Research Nurse Hematology 03/10/21 Bpm Solution Architect Relationship Specialty Start Date End Date Tigre Rodríguez DO [address] [place] [address] PCP - General Internal Medicine 10/16/20 [place] [address] [place] [address] Physician Hematology/Oncology 12/30/20 Hannah Lyons, ALEXANDRO [address] [place] [address] 60760 Research Nurse Hematology 03/10/21 Bpm Solution Architect Relationship Specialty Start Date End Date Tigre Rodríguez DO [address] [place] [address] PCP - General Internal Medicine 10/16/20 [place] [address] [place] [address] Physician Hematology/Oncology 12/30/20 Hannah Lyons RN [address] [place] [address] 23[address] Research Nurse Hematology 03/10/21 Bpm Solution Architect Relationship Specialty Start Date End Date Tiger Rodríguez DO [address] [place] [address] PCP - General Internal Medicine 10/16/20 [place] [address] [place] [address] Physician Hematology/Oncology 12/30/20 Hannah Lyons RN [address] [place] [address] 80283 Research Nurse Hematology 03/10/21 Bpm Solution Architect Relationship Specialty Start Date End Date Tigre Rodríguez DO [address] [place] [address] PCP - General Internal Medicine 10/16/20 [place] [address] [place] [address] Physician Hematology/Oncology 12/30/20 Hannah Lyons RN [address] [place] [address] 62072 Research Nurse Hematology 03/10/21 Bpm Solution Architect Relationship Specialty Start Date End Date Tigre Rodríguez DO [address] [place] [address] PCP - General Internal Medicine 10/16/20 [place] [address] [place] [address] Physician Hematology/Oncology 12/30/20 Hannah Lyons RN [address] [place] [address] 32448 Research Nurse Hematology 03/10/21 Bpm Solution Architect Relationship Specialty Start Date End Date Tigre Rodríguez DO [address] [place] [address] PCP - General Internal Medicine 10/16/20 [place] [address] [place], [place] [address] Physician Hematology/Oncology 12/30/20 Hannah Lyons RN [address] [place] [id number] Research Nurse Hematology 03/10/21 Bpm Solution Architect Relationship Specialty Start Date End Date Tigre Rodríguez DO [address] [place] [address] PCP - General Internal Medicine 10/16/20 [place] [address] [place] [address] Physician Hematology/Oncology 12/30/20 Hannah Lyons RN [address] [place] [phone] Research Nurse Hematology 03/10/21 Bpm Solution Architect Relationship Specialty Start Date End Date Tigre Rodríguez DO [address] [place] [address] PCP - General Internal Medicine 10/16/20 [place] [address] [place] [address] Physician Hematology/Oncology 12/30/20 Hannah Lyons, RN [address] [place] [phone] Research Nurse Hematology 03/10/21 Team Status: Active Member Role Status Dates Tigre Rodríguez DO Primary Care Provider Active Team Status: Active Member Role Status Dates Tigre Rodríguez DO Primary Care Provide r, Attending Provider Active Start: May 19, 2023 Team Status: Inactive Member Role Status Dates Tigre Rodríguez DO Primary Care Provide r, Attending Provider Active Start: May 31, 2023 End: May 31, 2023 Bpm Solution Architect Relationship Specialty Start Date End Date Tigre Rodríguez DO [address] [place] [id number] PCP - General Internal Medicine 10/16/20 [place] [address] [place] [address] Physician Hematology/Oncology 12/30/20 Hannah Lyons RN [address] [place] [phone] Research Nurse Hematology 03/10/21 Bpm Solution Architect Relationship Specialty Start Date End Date Tigre Rodrí[place] [address] [place] [id number] PCP - General Internal Medicine 10/16/20 [place] [address] [place] [address] Physician Hematology/Oncology 12/30/20 Hannah Lyons, ALEXANDRO [address] [place] [phone] Research Nurse Hematology 03/10/21 Bpm Solution Architect Relationship Specialty Start Date End Date Tigre Rodríguez DO [address] [place] [address] PCP - General Internal Medicine 10/16/20 [place] [address] [place] [address] Physician Hematology/Oncology 12/30/20 Hannah Lyons, ALEXANDRO [address] [place] [phone] Research Nurse Hematology 03/10/21 Bpm Solution Architect Relationship Specialty Start Date End Date Tigre Rodríguez DO [address] [place] [address] PCP - General Internal Medicine 10/16/20 [place] [address] [place] [address] Physician Hematology/Oncology 12/30/20 Hannah Lyons RN [address] [place] [phone] Research Nurse Hematology 03/10/21 Team Status: Active Member Role Status Dates Tigre Rodríguez DO Primary Care Provide r, Attending Provider Active Start: June 16, 2023 Team Status: Active Member Role Status Dates Tigre Rodríguez DO Primary Care Provide r, Attending Provider Active Start: July 14, 2023 Team Status: Inactive Member Role Status Dates Tigre Rodríguez DO Primary Care Provider Active Start: July 19, 2023 End: July 19, 2023 Faiza Hamlin APRN PRIVATE CLIENT ADVISOR-C Attending Provider Act froylan Start: July 19, 2023 End: July 19, 2023 (unrecognized sect ion and content) No Status Records FoundNo Status Records FoundNo Status Records Found INFORMATION SOURCE (unrecogn ized section and content) DATE CREATED AUTHOR 06/08/2021 Xavi [facility] DATE CREATED AUTHOR AUTHOR'S ORGANIZ ATION 09/18/2021 [facility] DATE CREATED AUTHOR AUTHOR'S ORGANIZ ATION 08/12/2023 [facility] Inactive Administered Medications - up to 3 most recent administrations Administered Medications (un recognized section and content) Medication Order MAR Action Action Date Dose Rate Site INV RUSFERTIDE 45 mg INJECTION (IRB PTG 1923/24-180) 45 mg, SUBCUTANEOUS, ONCE, 1 dose, On Jane 05/19/23 at 1230, Give 0.5 mL subcutaneously Once per week. Store in provided box. Dispense 4 week supply. Self Admin 05/19/2023 2:53 PM EDT 45 mg Abdomen, LUQ Goals (unrecognized section and content) Goals may be documented in a n alternate section FOR RECORDS PERTAINING TO PATIENTS WHO ARE OR HAVE BEEN ENROLLED IN A CHEMICAL DEPENDENCY/SUBSTANCEABUSE PROGRAM, SOME INFORMATION MAY BE OMITTED. This clinical summary was aggregated from multiple sources. Caution should be exercised in using it in the provision of clinical care. This summary normalizes information from multiple sources, and as a consequence, information in this document may materially change the coding, format and clinical context of patient data. In addition, data may be omitted in some cases. CLINICAL DECISIONS SHOULD BE BASED ON THE PRIMARY CLINICAL RECORDS. [employer] provides no warranty or guarantee of the accuracy or completeness of information in this document.
[2023-08-12 22:16] VITALS: BP 136/68; PULSE 96; TEMP 37.1; O2SAT 96; BMI 25.8
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
[2023-08-13] MEDS: ADACEL DIPH,PERTUSS(ACELL),TET VAC/PF 0.5 ML ADULT SYRINGE IM (01:26)
[2023-08-13] MEDS: LIDOCAINE HCL 1% 100 MG/10 ML MDV INJ (01:28)
[2023-08-13] MEDS: SODIUM CHLORIDE 0.9% IRRIG SOLUTION 1,000 ML BOTTLE 1000 ML IRR (01:28)
--- NOTE | 2023-08-13 01:32 | XR_ITS ---
The [address] [address] Patient Name: SHANEKA HERRERA MRN: [id number] date: 1965 Sex: M Assigned Patient Location: ER Current Patient Location: Accession/Order Number: [id number] Exam Date: 08/13/2023 01:40 Report Date: 08/13/2023 04:58 At the request of: FIORELLA SMITH Procedure: XR forearm LT 2V EXAM: XR forearm LT 2V HISTORY: foreign body? COMPARISON: None. TECHNIQUE: AP and lateral left forearm x-rays. FINDINGS: No acute or intrinsic osseous or articular abnormality is seen. There is a laceration involving the soft tissues overlying the mid shaft of the radius with soft tissue swelling. No soft tissue gas or foreign body is seen. XR/XR forearm LT 2V IMPRESSION: Left forearm laceration overlying the mid shaft of the radius with soft tissue swelling. No soft tissue emphysema, foreign body or acute fracture. Electronically authenticated by: KRISH NOLAND Date: 08/13/2023 04:58
[2023-08-13] MEDS: AMOXICILLIN/POTASSIUM CLAV 1 TAB TABLET PO (01:54)
[2023-08-13 02:45] VITALS: BP 141/72; PULSE 89; O2SAT 99
== END 2023-08-13 02:30 | disposition home or self-care (01) ==
PROVIDERS: Emergency Provider Internal Medicine; PCP Internal Medicine
DX: S56.922A Laceration of unspecified muscles, fascia and tendons at forearm level, left arm, initial encounter (principal); Z23 Encounter for immunization; W20.8XXA Other cause of strike by thrown, projected or falling object, initial encounter
CPT/HCPCS: 12002; 73090; 90471; 90715; 99284

== ENCOUNTER 2024-05-19 06:36 | Outpatient (OUT) | payer OTHER, SELFPAY ==
--- NOTE | 2024-05-19 | XR_ITS ---
The [address] [address] Patient Name: SHANEKA HERRERA MRN: [id number] date: 1965 Sex: M Assigned Patient Location: LAB Current Patient Location: Accession/Order Number: [id number] Exam Date: 05/20/2024 20:52 Report Date: 05/20/2024 20:53 At the request of: GRETA MERIDA DO Procedure: XR chest 2V Plain film chest 2 view HISTORY: Productive cough. COMPARISON: 12/04/2022 FINDINGS: SUPPORT DEVICES: None POSTSURGICAL CHANGES: Left clavicle fixation HEART: Within normal limits PULMONARY NURA: Within normal limits MEDIASTINUM: Unremarkable LUNGS AND PLEURA: No acute lung process, pleural effusion or pneumothorax identified. BONY STRUCTURES: Thoracic spondylosis ADDITIONAL FINDINGS None XR/XR chest 2V IMPRESSION: No acute process. Impression dictated by: Anil Bolton M.D.05/20/2024 8:53 PM Dictation Location: [facility] Electronically authenticated by: [id number] Date: 05/20/2024 20:53
--- OUTSIDE RECORDS SUMMARY | 2024-05-19 06:42 | XMS_ITS | CCD ---
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 Name Role Phone Nate Houser MD (Historical) Primary Care Provider Tigre Merida DO Primary Care Provider Bryce Ventura MD Unavailable Agapito RN, Hannah Unavailable TIGRE MERIDA Primary Care Physician FUAD, DR HERNANDES Consulting Unavailable BALL, DR HERNANDES Primary Care Unavailable FUAD, DR HERNANDES Admitting Unavailable BALL, DR HERNANDES Attending Unavailable BALL, DR HERNANDES Consulting Unavailable FUAD, DR HERNANDES Primary Care Unavailable FUAD, DR HERNANDES Admitting Unavailable BALL, DR HERNANDES Attending Unavailable BALL, DR HERNANDES Attending Unavailable BALL, DR HERNANDES Consulting Unavailable BALL, DR HERNANDES Primary Care Unavailable FUAD, DR HERNANDES Admitting Unavailable BALL, DR HERNANDES Attending Unavailable FUAD, DR HERNANDES Primary Care Unavailable FUAD, DR HERNANDES Admitting Unavailable Tigre Merida DO Primary Care Provider Bryce Ventura MD Unavailable Agapito RN, Hannah Unavailable [phone] Tigre Merida DO Primary Care Provider Bryce Ventura MD Unavailable Agapito RN, Hannah Unavailable [phone] Tigre Merida Unavailable Agapito RN, Hannah Unavailable [phone] Tigre Merida DO Primary Care Provider BRYCE VENTURA Referring Unavailable TIGRE MERIDA Primary Care Unavailable ANNIE ABREU Attending Unavailable TIGRE MERIDA Primary Care Unavailable BRYCE VENTURA Referring Unavailable TIGRE MERIDA Primary Care Unavailable BRYCE VENTURA Referring Unavailable BRYCE VENTURA Referring Unavailable BALL, TIGRE E Primary Care Unavailable BALL, TIGRE E Primary Care Unavailable GERDS, BRYCE T Referring Unavailable BALL, TIGRE E Primary Care Unavailable BALDERMAN, TREVA Referring Unavailable GERDS, BRYCE T Referring Unavailable BALL, TIGRE E Primary Care Unavailable GERDS, BRYCE T Attending Unavailable GERDS, BRYCE T Referring Unavailable BALL, TIGRE E Primary Care Unavailable BALL, TIGRE E Primary Care Unavailable GERDS, BRYCE T Referring Unavailable BALL, TIGRE E Primary Care Unavailable BALDERMAN, TREVA Attending Unavailable BALDERMAN, TREVA Referring Unavailable GERDS, BRYCE T Referring Unavailable BALL, TIGRE E Primary Care Unavailable BALDERMAN, TREVA Referring Unavailable BALL, TIGRE E Primary Care Unavailable GERDS, BRYCE T Referring Unavailable BALL, TIGRE E Primary Care Unavailable GERDS, BRYCE T Referring Unavailable BALL, TIGRE E Primary Care Unavailable BALL, TIGRE E Primary Care Unavailable GERDS, BRYCE T Referring Unavailable GERDS, BRYCE T Referring Unavailable BALL, TIGRE E Primary Care Unavailable BALL, TIGRE E Primary Care Unavailable KUN MATTSON Attending Unavailable GERDS, BRYCE T Referring Unavailable GERDS, BRYCE T Attending Unavailable GERDS, BRYCE T Referring Unavailable BALL, TIGRE E Primary Care Unavailable GERDS, BRYCE T Referring Unavailable BALL, TIGRE E Primary Care Unavailable GERDS, BRYCE T Referring Unavailable BALL, TIGRE E Primary Care Unavailable BALL, TIGRE E Primary Care Unavailable GERDS, BRYCE T Referring Unavailable BALL, TIGRE E Primary Care Unavailable GERDS, BRYCE T Referring Unavailable ANNIE ABREU Attending Unavailable GERDS, BRYCE T Referring Unavailable BALL, TIGRE E Primary Care Unavailable ANNIE ABREU Attending Unavailable Allergies Allergy Classification Reported Allergen(s) Allergy Type Date of Onset Reaction(s) Facility Sulfamethoxazole / Trimethoprim (1 source) Sulfamethoxazole / Trimethoprim Drug Allergy 1 [facility] (20 sources) Sulfamethoxazole / Trimethoprim; Translations: [SULFAMETHOXAZOLE-TR IMETHOPRIM] Drug Allergy 1 [facility] (1 source) Cefuroxime; Translations: [cefuroxime] Drug Allergy [facility] (1 source) Etodolac; Translations: [etodolac] Drug Allergy [facility] (2 sources) Etodolac Drug Allergy 6 [facility] Medications Current Medications Medication Drug Class(es) Dates Sig (Normalized) Sig (Original) aspirin 81 mg delayed release oral tablet (20 sources) Platelet Aggregation Inhibitor, Nonsteroidal Anti-inflammatory Drug Start: 05-18-2024 take 1 tablet by mouth once daily Aspirin (Adult Aspirin Regimen) 81 mg tablet,delayed release (DR/EC) Active 81 MG PO Daily May 18, 2024 12:00am aspirin 81 mg ca p Take by mouth once daily. Active Comment on above: Take by mouth once d aily. azithromycin 250 mg oral tablet (1 source) Macrolide Antimicrobial Start: 05-19-19 25 Azithromycin 250 mg tablet Active 250 MG PO .COMPLEX 6 5 May 18, 2024 12:00am 2 tabs on first day followed by 1 tab on days 2-5 doxycycline hyclate 100 mg oral capsule (2 sources) Tetracycline-class Drug Start: 12-04-19 take 1 capsule by mouth every twelve hours Doxycycline Hyclate 100 MG 1 capsule Orally Twice a day for 5 days Nov, Active efinaconazole 100 mg/ml topical solution (20 sources) Azole Antifungal Start: 05-19-19 25 Efinaconazole 10 % solution with applicator Active 1 APPLIC TOPICAL Daily May 18, 2024 12:00am efinaconazole 10 % alfa Apply 1 application to affected area once daily. Active Comment on above: Apply 1 application to affected area once daily. enteric contrast (will be provided with radiology test) (2 sources) Start: 02-22-2022 End: 02-23-2022 enteric contrast (will be provided with radiology [...] Contrast as designated per enteric contrast guidelines krill oil 500 mg oral capsule (1 source) Start: 05-18-2024 take 1 capsule by mouth twice daily Krill Oil 500 mg capsule Active 500 MG PO Twice daily May 18, 2024 12:00am KRILL OIL ORAL (20 sources) KRILL OIL ORAL T margarito by mouth twice daily. Active KRILL OIL ORAL T margarito by mouth twice daily. 0 Active Comment on above: Take by mouth twice daily. magnesium glycinate 100 mg magnesium capsule (15 sources) Start: 07-14-19 24 take 2 capsules by mouth once daily, then take 2 capsules by mouth once daily magnesium glycinate 100 mg magnesium capsule Take 2 capsules by mouth once daily. Take 2 capsules by mouth once daily in late afternoon 30 capsule 1 07/14/2023 Active Magnesium Glycinate 100 mg magnesium capsule (1 source) Start: 05-19-19 25 Magnesium Glycinate 100 mg magnesium capsule Active 200 MG PO Daily May 18, 2024 12:00am meclizine hydrochloride 12.5 mg oral tablet (3 sources) Antiemetic Start: 08-14-19 End: 09-13-19 take 2 tablets by mouth every twelve hours as needed meclizine (ANTIVERT) 12.5 mg tab Take 2 tablets by mouth twice daily as needed. 28 tablet 0 08/13/2022 09/12/2022 Active Comment on above: Take 2 tablets by mo [facility] twice daily as needed. Multivitamin tablet (1 source) Start: 05-19-19 take 1 tablet by mouth once daily Multivitamin tablet Active 1 TAB PO Daily May 18, 2024 12:00am multivitamin with minerals (ONE-A-DAY 50 PLUS ORAL) (20 sources) multivitamin wit h minerals (ONE-A-DAY 50 PLUS ORAL) Take by mouth once daily. Active multivitamin wit h minerals (ONE-A-DAY 50 PLUS ORAL) Take by mouth once daily. 0 Active Comment on above: Take by mouth once d aily. Ruxolitinib (20 sources) Start: 05-18-2024 Ruxolitinib (Opzelura) 1.5 % cream Active 1 APPLIC TOPICAL Twice daily May 18, 2024 12:00am ruxolitinib phos phate (OPZELURA TOPICAL) Apply to affected area. Active ruxolitinib phos phate (OPZELURA TOPICAL) Apply to affected area. 0 Active Comment on above: Apply to affected ar ea. turmeric extract 500 mg oral capsule (3 sources) Start: 12-19-2023 take 500 mg by mouth once daily TURMERIC ORAL Take 500 mg by mouth once daily. 12/19/2023 Active Turmeric Root Extract 500 mg capsule (1 source) Start: 05-18-2024 take 1 capsule by mouth once daily Turmeric Root Extract 500 mg capsule Active 500 MG PO Daily May 18, 2024 12:00am Completed/Discontinued Medications Medication Drug Class(es) Dates Sig (Normalized) Sig (Original) amLODIPine 5 mg oral tablet (20 sources) Dihydropyridine Calcium Channel Candace Start: 07-19-2023 End: 05-18-2024 take 1 tablet by mouth once daily Amlodipine 5 mg tablet Discontinued 5 MG PO Daily July 19, 2023 12:00am May 18, 2024 9:39am Start: 10-01-2020 take 1 tablet by miriam th once daily amLODIPine (NORVASC) 5 mg tablet Take 5 mg by mouth once daily. 0 10/01/2020 Active Comment on above: Take 5 mg by mouth o nce daily. amoxicillin 875 mg / clavulanate 125 mg oral tablet (2 sources) Penicillin-class Antibacterial Start: 07-19-19 End: 05-19-19 take 1 tablet by mouth twice daily Amoxicillin-Pot Clavulanate 875-125 mg tablet Discontinued 1 TAB PO Twice daily 14 July 19, 2023 12:00am May 18, 2024 9:28am fluticasone propionate 0.05 mg/actuat metered dose nasal spray (3 sources) Corticosteroid Start: 08-25-19 End: 05-19-19 take 1 spray(s) nasal route twice daily Fluticasone Propionate 50 mcg/actuation spray,suspension Discontinued 0 .ROUTE .COMPLEX August 25, 2023 1:32pm May 18, 2024 9:39am INSTILL 1 SPRAY INTO EACH NOSTRIL TWICE A DAY Start: 07-19-2023 End: 08-25-2023 take 1 spray(s) nasal route twice daily Fluticasone Propionate (Flonase Allergy Relief) 50 mcg/actuation spray,suspension Discontinued 1 SPRAY INTRANASAL Twice daily July 19, 2023 12:00am August 25, 2023 1:33pm administer into each nostril isopropyl alcohol 0.7 ml/ml medicated pad (20 sources) Start: 02-26-2021 End: 01-27-2023 alcohol swabs Apply 1 Each to affected area one time a week. 100 Each 0 02/26/2021 01/27/2023 Discontinued (Other) Comment on above: Apply 1 Each to affe cted area one time a week. Nirmatrelvir-Ritonavir (Paxlovid) 300 mg (150 mg x 2)-100 mg tablets,dose pack (1 source) Start: 02-03-2024 End: 05-18-2024 Nirmatrelvir-Ritonavir (Paxlovid) 300 mg (150 mg x 2)-100 mg tablets,dose pack Discontinued 0 PO .COMPLEX February 03, 2024 1:00am May 18, 2024 9:28am take TWO 150 mg tablets of nirmatrelvir with ONE 100 mg tablet of ritonavir twice daily for 5 days PO Oral Medication Containers (SHARPS CONTAINER) misc (20 sources) Start: 02-26-2021 End: 01-27-2023 Oral Medication Containers (SHARPS CONTAINER) misc 1 Container as directed. 1 Each 0 02/26/2021 01/27/2023 Discontinued (Other) Start: 02-26-2021 Oral Medicatio n Containers (SHARPS CONTAINER) misc 1 Container as directed. 1 Each 0 02/26/2021 Active Comment on above: 1 Container as direc mary. terbinafine 250 mg oral tablet (10 sources) Allylamine Antifungal Start: 07-19-2023 End: 05-18-2024 Terbinafine Hcl 250 mg tablet Discontinued 250 MG PO Daily July 19, 2023 12:00am May 18, 2024 9:49am 1 tablet for 7 days, off for 3 weeks, then repeat End: 01-27-2023 take 250 mg by mouth once daily TERBINAFINE HCL ORAL Take 250 mg by mouth once daily. 0 01/27/2023 Discontinued (Other) Comment on above: Take 250 mg by mouth once daily. triamcinolone acetonide 40 mg/ml injectable suspension (5 sources) Corticosteroid Start: 06-04-2022 Kenalog-40 May, 60 mg Problems Active Problems Problem Classification Problem Date [...] source) Splenomegaly, not elsewhere classified Episodic Other lower respiratory disease (1 source) Productive cough ; Translations: [Productive cough] 05-18-2024 Episodic Other nervous system disorders (1 source) Cold feet; Translations: [Unspecified disturbances of skin sensation] 03-24-2023 Episodic Other nutritional; endocrine; and metabolic disorders (1 source) Overweight Episodic Other screening for suspected conditions (not mental disorders or infectious disease) (4 sources) Encounter for screening for malignant neoplasm of prostate; Translations: [Patient encounter status] Onset: 09-17-2021 Episodic Comment on above: PSA: 1.67 - 08/2021, 1.71 - 09/2022 Other upper respiratory disease (7 sources) Allergic rhinitis due to pollen; Translations: [...] source) Obstructive sleep apnea (adult) (pediatric) Chronic Viral infection (1 source) Disease caused by 2019-nCoV; Translations: [COVID-19] 05-14-2024 Episodic Past or Other Problems Problem Classification Problem Date Documented Da te Episodic/Chronic Other hematologic conditions (4 sources) Secondary polycythemia; Translations: [SECONDARY POLYCYTHEMIA] Onset: 10-01-2020 Episodic Unclassified (1 source) Exposure to 2019 novel coronavirus; Translations: [Contact with and (suspected) exposure to COVID19] Results Test Name Value Interpretation Reference Range Facility Basophils Auto (Bld) [#/Vol] on 04-17-2024 Basophils (Bld) [#/Vol] Automated basophil count High <0.11 [facility] Basophils/100 WBC Auto (Bld) on 04-17-2024 Basophils/100 WBC (Bld) Automated basophil % [facility] Blood manual differential co mment interpretation narrativeon 04-17-2024 Manual differential comment Van (Bld) [Interp] Blood manual differential comment interpretation narrative [facility] CBC W Auto Differential pane l (Bld)on 04-17-2024 Basophils (Bld) [#/Vol] 0.27 10*3/uL High <0.11 [facility] Comment on above: Order Comment: Speci men Type: BLOOD SPECIMENOrdering Facility: [facility] Address: [address] [place] [address] Performed By: #### 5 7021-8 ####[facility] [id number] [place] [address] [place] Basophils/100 WBC (Bld) 1.8 % Normal [facility] Comment on above: Order Comment: Speci men Type: BLOOD SPECIMENOrdering Facility: [facility] Address: [address] [place] [address] Performed By: #### 5 7021-8 ####[facility] [id number] [place] [address] [place] Differential cell count method Nom (Bld) Auto Normal [facility] Comment on above: Order Comment: Speci men Type: BLOOD SPECIMENOrdering Facility: [facility] Address: [address] [place] [address] Performed By: #### 5 7021-8 ####[facility] [id number] [place] [address] [place] Eosinophils (Bld) [#/Vol] 0.46 10*3/uL High <0.46 [facility] Comment on above: Order Comment: Speci men Type: BLOOD SPECIMENOrdering Facility: [facility] Address: [address] [place] [address] Performed By: #### 5 7021-8 ####[facility] [id number] [place] [address] [place] Eosinophils/100 WBC (Bld) 3.1 % Normal [facility] Comment on above: Order Comment: Speci men Type: BLOOD SPECIMENOrdering Facility: [facility] Address: [address] [place] [address] Performed By: #### 5 7021-8 ####[facility] [id number] [place] [address] [place] Erythrocyte distribution width (RBC) [Ratio] 20.0 % High 11.5-15.0 [facility] Comment on above: Order Comment: Speci men Type: BLOOD SPECIMENOrdering Facility: [facility] Address: [address] [place] [address] Performed By: #### 5 7021-8 ####[facility] [id number] [place] [address] [place] Hematocrit (Bld) [Volume fraction] 41.1 % Normal 39.0-51.0 [facility] Comment on above: Order Comment: Speci men Type: BLOOD SPECIMENOrdering Facility: [facility] Address: [address] [place] [address] Performed By: #### 5 7021-8 ####[facility] [id number] [place] [address] [place] Hemoglobin (Bld) [Mass/Vol] 10.6 g/dL Low 13.0-17.0 [facility] Comment on above: Order Comment: Speci men Type: BLOOD SPECIMENOrdering Facility: [facility] Address: [address] [place] [address] Performed By: #### 5 7021-8 ####[facility] [id number] [place] [address] [place] Immature granulocytes (Bld) [#/Vol] 0.22 10*3/uL High <0.10 [facility] Comment on above: Order Comment: Speci men Type: BLOOD SPECIMENOrdering Facility: [facility] Address: [address] [place] [address] Performed By: #### 5 7021-8 ####[facility] [id number] [place] [address] [place] Immature granulocytes/100 WBC (Bld) 1.5 % Normal [facility] Comment on above: Order Comment: Speci men Type: BLOOD SPECIMENOrdering Facility: [facility] Address: [address] [place] [address] Performed By: #### 5 7021-8 ####[facility] [id number] [place] [address] [place] Lymphocytes (Bld) [#/Vol] 0.96 10*3/uL Low 1.00-4.00 [facility] Comment on above: Order Comment: Speci men Type: BLOOD SPECIMENOrdering Facility: [facility] Address: [address] [place] [address] Performed By: #### 5 7021-8 ####[facility] [id number] [place] [address] [place] Lymphocytes/100 WBC (Bld) 6.6 % Normal [facility] Comment on above: Order Comment: Speci men Type: BLOOD SPECIMENOrdering Facility: [facility] Address: [address] [place] [address] Performed By: #### 5 7021-8 ####[facility] [id number] [place] [address] [place] MCH (RBC) [Entitic mass] 18.5 pg Low 26.0-34.0 [facility] Comment on above: Order Comment: Speci men Type: BLOOD SPECIMENOrdering Facility: [facility] Address: [address] [place] [address] Performed By: #### 5 7021-8 ####[facility] [id number] [place] [address] [place] MCHC (RBC) [Mass/Vol] 25.8 g/dL Low 30.5-36.0 [facility] Comment on above: Order Comment: Speci men Type: BLOOD SPECIMENOrdering Facility: [facility] Address: [address] [place] [address] Performed By: #### 5 7021-8 ####[facility] [id number] [place] [address] [place] MCV (RBC) [Entitic vol] 71.7 fL Low 80.0-100.0 [facility] Comment on above: Order Comment: Speci men Type: BLOOD SPECIMENOrdering Facility: [facility] Address: [address] [place] [address] Performed By: #### 5 7021-8 ####[facility] [id number] [place] [address] [place] Monocytes (Bld) [#/Vol] 0.55 10*3/uL Normal <0.87 [facility] Comment on above: Order Comment: Speci men Type: BLOOD SPECIMENOrdering Facility: [facility] Address: [address] [place] [address] Performed By: #### 5 7021-8 ####[facility] [id number] [place] [address] [place] Monocytes/100 WBC (Bld) 3.8 % Normal [facility] Comment on above: Order Comment: Speci men Type: BLOOD SPECIMENOrdering Facility: [facility] Address: [address] [place] [address] Performed By: #### 5 7021-8 ####[facility] [id number] [address] [id number] [address] [place] Neutrophils (Bld) [#/Vol] 12.18 10*3/uL High 1.45-7.50 [facility] Comment on above: Order Comment: Speci men Type: BLOOD SPECIMENOrdering Facility: [facility] Address: [address] [place] [address] Performed By: #### 5 7021-8 ####[facility] [id number] [place] [address] [place] Neutrophils/100 WBC (Bld) 83.2 % Normal [facility] Comment on above: Order Comment: Speci men Type: BLOOD SPECIMENOrdering Facility: [facility] Address: [address] [place] [address] Performed By: #### 5 7021-8 ####[facility] [id number] [place] [address] [place] Nucleated RBC (Bld) [#/Vol] 10*3/uL Normal <0.01 [facility] Comment on above: Order Comment: Speci men Type: BLOOD SPECIMENOrdering Facility: [facility] Address: [address] [place] [address] Performed By: #### 5 7021-8 ####[facility] [id number] [place] [address] [place] Nucleated RBC/100 WBC (Bld) [Ratio] 0.0 /100 WBC Normal [facility] Comment on above: Order Comment: Speci men Type: BLOOD SPECIMENOrdering Facility: [facility] Address: [address] [place] [address] Performed By: #### 5 7021-8 ####[facility] [id number] [place] [address] [place] Platelet mean volume (Bld) [Entitic vol] 8.9 fL Low 9.0-12.7 [facility] Comment on above: Order Comment: Speci men Type: BLOOD SPECIMENOrdering Facility: [facility] Address: [address] [place] [address] Performed By: #### 5 7021-8 ####[facility] [id number] [place] [address] [place] Platelets (Bld) [#/Vol] 916 10*3/uL High 150-400 [facility] Comment on above: Order Comment: Speci men Type: BLOOD SPECIMENOrdering Facility: [facility] Address: [address] [place] [address] Performed By: #### 5 7021-8 ####[facility] [id number] [place] [address] [place] RBC (Bld) [#/Vol] 5.73 10*6/uL Normal 4.20-6.00 [facility] Comment on above: Order Comment: Speci men Type: BLOOD SPECIMENOrdering Facility: [facility] Address: [address] [place] [address] Performed By: #### 5 7021-8 ####[facility] [id number] [place] [address] [place] WBC (Bld) [#/Vol] 14.64 10*3/uL High 3.70-11.00 [facility] Comment on above: Order Comment: Speci men Type: BLOOD SPECIMENOrdering Facility: [facility] Address: [address] [place] [address] Performed By: #### 5 7021-8 ####[facility] [id number] [address] [facility] CNNURSEon 04-17-2024 CNNURSE Nurse Visit (VENKAT TERRELL) ANIL LEOS ([id number]) 1965 M Date Time Provider Department 04/17/24 9:00 AM HANNAH LOYNS During your visit today, we recorded the following information about you: Hannah Lyons RN 04/17/2024 4:14 PM Addendum Title:An Extension Study to Evaluate the Long-term Safety of Rusfertide (PTG-300) in Subjects with Polycythemia Vera Consent expiration 04/13/2024 Screening date: 05/19/2023 Subject#: [id number] PTG 1Z21: Week 1 02/26/2021. EOT 05/19/2023. Rolled over to PTG 1922 on 05/19/2023. Week 0: 05/19/2023 PTG-300 45 mg SC weekly Week 4: 06/16/2023 Maintain dosing Week 8+: 07/14/2023 Maintain dosing Patient is here today for Week 48 VISIT for the PTG 1923 Trial, IRB# [id number]. Patient signed Informed Consent on 05/19/2023, prior to any study related procedures. PE: Sindy Abreu [employer] Patient is a Male with PV. Patient is willing and able to comply with the protocol for the duration of the study including undergoing treatment and scheduled visits and examinations. Male patients must always use a condom during and up to 90 days after the last dose of PTG-300 or rusfertide. Pt here with his . No new complaints or signs/symptoms with study medication. Pt denies any symptoms or concerns with injection sites. Pt states he no longer experiences redness or swelling at the injection sites. Pt to maintain dosing at 45 mg SC weekly of PTG-300. Pt had COVID-19 infection over and took a course of Paxlovid. Pt saw his local clock [facility] 6-8 weeks ago and got a prescription for a topical antifungal topical cream for his fingernails that he has not started yet. Reviewed his medications and updated the grid. Pt leaving for [place] tomorrow for one week and will be travelling with the study medication since he doses on Fridays. First Visit May 19, 2023: Patient does continue to meet eligibility to proceed with therapy Subsequent Visit April 17, 2024: Patient does continue to meet parameters to proceed with therapy Concomitant medications reviewed per protocol: yes Changes per patient: Yes, Med grid updated Quality of life questionnaire completed per protocol: Yes Clinical trial labs completed per protocol: Yes Vitals completed per protocol: Yes ECO EKG: completed by Magda Zhou QTcF 425 ms. Spleen: 0 cm MPN-SAF (MPN-10) TSS: 04/17/2024 Perameter Score (0 if absent to 10 [...] past 6 months 0 Overall QoL 0 Enrqiue WILLINGHAM et alJ Clin Oncol 2012;30:2487-8459. PAST MEDICAL HISTORY Diagnosis Date Status/Active Issues [...] cokes. Denies recreational drug use. 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 (1 ) Phlebotomies: 11/14/2020 500 mL removed 12/16/2020 500 mL removed 12/26/2020 250 mL removed 01/16/2021 500 mL removed 02/05/2021 500 mL removed 02/20/2021 500 mL removed Allergies: Bactrim Current Outpatient Medications Medication Sig Indication Start Date Stop date: KRILL OIL ORAL 2 caps PO daily Supplement/health 10/2020 Tylenol 1 gram PO TID PRN Headaches 03/02/2021 multivitamin with minerals (ONE-A-DAY 50 PLUS ORAL) 1 tab PO daily Health *greater than 8 years aspirin 81 mg cap 81 mg PO daily Heart/PV 2019 Kenalog injection 60 mg IM twice a year Seasonal allergies ~1989 Opzelura 1.5% cream Apply twice daily to areas of skin with vitiligo Vitiligo 08/2022- Pt is not consistent with using Magnesium glycinate 100 mg magnesium capsule Take 2 capsules by mouth once daily PRN Supplement/muscle cramps 07/14/2023 Tumeric 500 mg capsules PO daily Health 01/2024 Hixdefrima solution (ciclopirox 8%, fluconazole 1%, terbinafine hcl 1%) Apply to affected nails every night Fungal skin infection Has not started yet Rusfertide (PTG-300) 45 mg (more content not included)... Normal [facility] CNOVSPon 04-17-2024 CNOVSP Visit (SP) Office (HEMAMN) ANIL LEOS ([id number]) 1965 M Date Time Provider Department 04/17/24 9:00 AM ANNIE ABREU HEMAMN During your visit today, we recorded the following information about you: Temperature Pulse Respiration Blood pressure 97.8 degrees 74/minute 18/minute 126/66 Weight 85 kg Annie Abreu APRN.[employer] 04/17/2024 10:16 AM Signed Some elements copied from note on 01/26/2024, the elements have been updated and all reflect current decision making from today, 04/17/2024. [facility] Clinical Note Assessment and Plan In summary: Mr. Leos is a 59 year old gentleman with polycythemia vera. Problem List Polycythemia vera He has a history of erythrocytosis. He also [...] He started treatment with PTG-300 on 02/26/2021 (phase II study). Since starting he has not required phlebotomies. EOT visit was 05/19/2023 as patient elected to continue participation in rollover study w/ rusfertide, PTG 1923, which he started that same day. Dosing on PTG 1923 was initiated at 45 mg weekly despite his stable dose of 60 mg weekly on prior PTG 1Z21 study; this was due to reformulation of drug. CT abdomen completed at week 0 visit showed slightly increased splenomegaly. EKG also performed at that time notable for NSR w/ QTcB 450ms. Today (04/17/2024) is week 48 visit of PTG 1923. He continues on 45 mg weekly dosing and is tolerating it well. Hct stable - has not needed a phlebotomy since start of study. No injection reactions. Labs remain stable overall - No contraindication to continuing investigational Rusfertide today. Will get EKG today. All of Mr. Leos's questions and those of his were acknowledged and answered to apparent satisfaction. Welcomed them to please call with any questions or concerns. I spent a total of 29 minutes on the date of the service which included preparing to see the patient, [id number] patient care, completing clinical documentation, obtaining and/or reviewing separately obtained history, performing a medically appropriate examination, counseling and educating the patient/family/careg iver, ordering medications, tests, or procedures, communicating with other HCPs (not separately reported), independently interpreting results (not separately reported), communicating results to the patient/family/careg iver, and care coordination (not separately reported). Annie Abreu APRN.[employer] Visit Details Past Medical History Mr. Leos presents today, accompanied by his , for follow up. He reports feeling well overall and denies any new complaints or concerns, nor any changes to his MPN-related symptoms. Denies any fevers, chills, chest pain, or shortness of breath. Is eating and drinking well. Denies any knee pain today. Of note, both he and his had Covid in late January - he tested positive and started Paxlovid on 02/06/2024. He saw his clock smith ~ 7 weeks ago for routine follow-up and was prescribed a new topical medication for his fingernails which he has in his possession and is to apply at bedtime but has not yet started - he cannot recall the name of this medication but will call to let us know when they get home. This is to be used in place of efinaconazole which he is no longer taking; also notes that he still has the topical opzelura but hasn't been using it. He and his will be taking a 7 day trip to [place] later this week (Tuesday to Tuesday) and notes he will take his Rusfertide with him on the flight in a cooler with ice packs as he doses on Fridays. An inventory of his PV-related symptoms are [...] 0 Enrique RM et alJ Clin Oncol 2012;30:1554-4686. Review of Systems Completed and negative aside from that noted above in HPI/Interval history. Adjunct Histories PAST MEDICAL HISTORY Diagnosis Date Elevated prostate specific antigen (PSA) Hypertension REYMUNDO (obstructive sleep apnea) Polycythemia Seasonal aller (more content not included)... Normal [facility] metabolic 2000 panelon 04-17-2024 Albumin [Mass/Vol] 4.5 g/dL Normal 3.9-4.9 [facility] Comment on above: Order Comment: Speci men Type: BLOOD SPECIMENOrdering Facility: [facility] Address: [address] [place] [address] Performed By: #### 2 4323-8 ####[facility] [id number] [place] [address] [place] ALP [Catalytic activity/Vol] 65 U/L Normal 38-113 [facility] Comment on above: Order Comment: Speci men Type: BLOOD SPECIMENOrdering Facility: [facility] Address: [address] [place] [address] Performed By: #### 2 4323-8 ####[facility] [place] [id number] [place] [address] [place] ALT [Catalytic activity/Vol] 18 U/L Normal 10-54 [facility] Comment on above: Order Comment: Speci men Type: BLOOD SPECIMENOrdering Facility: [facility] Address: [address] [place] [address] Performed By: #### 2 4323-8 ####[facility] [id number] [place] [address] [place] Anion gap [Moles/Vol] 9 mmol/L Normal 8-15 [facility] Comment on above: Order Comment: Speci men Type: BLOOD SPECIMENOrdering Facility: [facility] Address: [address] [place] [address] Performed By: #### 2 4323-8 ####[facility] [id number] [place] [address] [place] AST [Catalytic activity/Vol] 24 U/L Normal 14-40 [facility] Comment on above: Order Comment: Speci men Type: BLOOD SPECIMENOrdering Facility: [facility] Address: [address] [place] [address] Performed By: #### 2 4323-8 ####[facility] [id number] [place] [address] [place] Bilirubin [Mass/Vol] 0.5 mg/dL Normal 0.2-1.3 [facility] Comment on above: Order Comment: Speci men Type: BLOOD SPECIMENOrdering Facility: [facility] Address: [address] [place] [address] Performed By: #### 2 4323-8 ####[facility] [id number] [place] [address] [place] Calcium [Mass/Vol] 9.1 mg/dL Normal 8.5-10.2 [facility] Comment on above: Order Comment: Speci men Type: BLOOD SPECIMENOrdering Facility: [facility] Address: [address] [place] [address] Performed By: #### 2 4323-8 ####[facility] [id number] [place] [address] [place] Chloride [Moles/Vol] 107 mmol/L Normal 98-107 [facility] Comment on above: Order Comment: Speci men Type: BLOOD SPECIMENOrdering Facility: [facility] Address: [address] [place] [address] Performed By: #### 2 4323-8 ####[facility] [id number] [place] [address] [place] CO2 [Moles/Vol] 27 mmol/L Normal 22-30 [facility] Comment on above: Order Comment: Speci men Type: BLOOD SPECIMENOrdering Facility: [facility] Address: [address] [place] [address] Performed By: #### 2 4323-8 ####[facility] [id number] [place] [address] [place] Creatinine [Mass/Vol] 1.00 mg/dL Normal 0.73-1.22 [facility] Comment on above: Order Comment: Abhishek flores Type: BLOOD SPECIMENOrdering Facility: [facility] Address: [address] [place] [address] Performed By: #### 2 4323-8 ####[facility] [id number] [place] [address] [place] Creatinine and Glomerular filtration rate.predicted panel (S/P/Bld) 86 mL/min/1.73m??? Normal >=60 [facility] Comment on above: Order Comment: Abhishek flores Type: BLOOD SPECIMENOrdering Facility: [facility] Address: [address] [place] [address] Result Comment: Romi mated Glomerular Filtration Rate [...] By: #### 2 4323-8 ####[facility] [id number] [place] [address] [place] Glucose [Mass/Vol] 84 mg/dL Normal 74-99 [facility] Comment on above: Order Comment: Abhishek flores Type: BLOOD SPECIMENOrdering Facility: [facility] Address: [address] [place] [address] Result Comment: The [place] Diabetes Association (ADA) provides guidance for cutoff values for fasting glucose and random glucose. The ADA defines fasting as no caloric intake for at least 8 hours. Fasting plasma glucose results between 100 to 125 mg/dL indicate increased risk for diabetes (prediabetes). Fasting plasma glucose results greater than or equal to 126 mg/dL meet the criteria for diagnosis of diabetes. In the absence of unequivocal hyperglycemia, results should be confirmed by repeat testing. In a patient with classic symptoms of hyperglycemia or hyperglycemic crisis, random plasma glucose results greater than or equal to 200 mg/dL meet the criteria for diagnosis of diabetes. Reference: Standards of Medical Care in Diabetes 2016, [place] Diabetes Association. Diabetes Care. 2016.39(Suppl 1). Performed By: #### 2 4323-8 ####[facility] [id number] [place] [address] [place] Potassium [Moles/Vol] 4.7 mmol/L Normal 3.7-5.1 [facility] Comment on above: Order Comment: Speci men Type: BLOOD SPECIMENOrdering Facility: [facility] Address: [address] [place] [address] Performed By: #### 2 4323-8 ####[facility] [id number] [place] [address] [place] Protein [Mass/Vol] 6.7 g/dL Normal 6.3-8.0 [facility] Comment on above: Order Comment: Speci men Type: BLOOD SPECIMENOrdering Facility: [facility] Address: [address] [place] [address] Performed By: #### 2 4323-8 ####[facility] [place] [id number] [place] [address] [place] Sodium [Moles/Vol] 143 mmol/L Normal 136-144 [facility] Comment on above: Order Comment: Speci men Type: BLOOD SPECIMENOrdering Facility: [facility] Address: [address] [place] [address] Performed By: #### 2 4323-8 ####[facility] [id number] [place] [address] [place] Urea nitrogen [Mass/Vol] 20 mg/dL Normal 9-24 [facility] Comment on above: Order Comment: Speci men Type: BLOOD SPECIMENOrdering Facility: [facility] Address: [address] [place] [address] Performed By: #### 2 4323-8 ####[facility] [id number] [place] [address] [place] [id number] 03-04-2025 ECG01 Ventricular Rate : 71 BPM Atrial Rate : 71 BPM P-R Interval : 150 ms QRS Duration : 84 ms Q-T Interval : 402 ms QTC Calculation(Bazett) : 436 ms Calculated [place] : 74 degrees Calculated R [place] : 46 degrees Calculated [place] : 69 degrees NORMAL SINUS RHYTHM NORMAL ECG Confirmed by MD SHAHIDA, PhD, KRIS ([id number]) on 05/03/2024 12:19:27 PM NAME : ANIL LEOS PID : [id number] : 1965 Gender : Male Race : ORD : Procedure Date : Apr 17 2024 10:01:33 Edit Date : May 03 2024 12:19:33 Diagnosis: NORMAL SINUS RHYTHM NORMAL ECG Confirmed by MD SHAHIDA, PhD, KRIS ([id number]) on 05/03/2024 12:19:27 PM Test Reason : Location : 117 : [facility] Overread By : MD SHAHIDA, PhD,KRIS Edited By : MD SHAHIDA, PhD,KRIS Referred By : BRYCE VENTURA Acquired by : Howard dietz [facility] Eosinophils/100 WBC Auto (Bl d)on 04-17-2024 Eosinophils/100 WBC (Bld) Automated eosinophil % [facility] Erythrocyte distribution wid th Auto (RBC) [Ratio]on 04-17-2024 Erythrocyte distribution width (RBC) [Ratio] Erythrocyte distribution width [Ratio] by Automated count High 11.5-15.0 [facility] Hematocrit Auto (Bld) [Volum e fraction]on 04-17-2024 Hematocrit (Bld) [Volume fraction] Hematocrit [Volume Fraction] of Blood by Automated count 39.0-51.0 [facility] Hemoglobin [Mass/volume] in Bloodon 04-17-2024 Hemoglobin (Bld) [Mass/Vol] Hemoglobin [Mass/volume] in Blood Low 13.0-17.0 [facility] Laboratory - Chemistry and C hemistry - challengeon 04-17-2024 Albumin [Mass/Vol] 4.5 g/dL 3.9-4.9 [facility] ALP [Catalytic activity/Vol] 65 U/L 38-113 [facility] ALT [Catalytic activity/Vol] 18 U/L 10-54 [facility] AST [Catalytic activity/Vol] 24 U/L 14-40 [facility] Bilirubin [Mass/Vol] 0.5 mg/dL 0.2-1.3 [facility] Calcium [Mass/Vol] 9.1 mg/dL 8.5-10.2 [facility] Chloride [Moles/Vol] 107 mmol/L 98-107 [facility] CO2 [Moles/Vol] 27 mmol/L 22-30 [facility] Creatinine [Mass/Vol] 1.00 mg/dL 0.73-1.22 [facility] Glucose [Mass/Vol] 84 mg/dL 74-99 [facility] Comment on above: The [place] Diabete s Association (ADA) provides guidance for [...] Standards of Medical Care in Diabetes 2016, [place] Diabetes Association. Diabetes Care. 2016.39(Suppl 1). Potassium [Moles/Vol] 4.7 mmol/L 3.7-5.1 [facility] Sodium [Moles/Vol] 143 mmol/L 136-144 [facility] Urea nitrogen [Mass/Vol] 20 mg/dL 9-24 [facility] Laboratory - Hematology and Cell countson 04-17-2024 Eosinophils (Bld) [#/Vol] 0.46 10*3/uL High <0.46 [facility] Immature granulocytes (Bld) [#/Vol] 0.22 10*3/uL High <0.10 [facility] Immature granulocytes/100 WBC (Bld) 1.5 % [facility] Leukocytes [#/volume] correc mary for nucleated erythrocytes in Blood by Automated counon 04-17-2024 WBC corrected for nucl RBC Auto (Bld) [#/Vol] Leukocytes [#/volume] corrected for nucleated erythrocytes in Blood by Automated coun High 3.70-11.00 [facility] Lymphocytes Auto (Bld) [#/Vo l]on 04-17-2024 Lymphocytes (Bld) [#/Vol] Lymphocytes [#/volume] in Blood by Automated count Low 1.00-4.00 [facility] Lymphocytes/100 WBC Auto (Bl d)on 04-17-2024 Lymphocytes/100 WBC (Bld) Lymphocytes/100 leukocytes in Blood by Automated count [facility] MCH Auto (RBC) [Entitic mass ]on 04-17-2024 MCH (RBC) [Entitic mass] MCH [Entitic mass] by Automated count Low 26.0-34.0 [facility] MCHC Auto (RBC) [Mass/Vol]on 04-17-2024 MCHC (RBC) [Mass/Vol] MCHC [Mass/volume] by Automated count Low 30.5-36.0 [facility] MCV Auto (RBC) [Entitic vol] on 04-17-2024 MCV (RBC) [Entitic vol] MCV [Entitic volume] by Automated count Low 80.0-100.0 [facility] MISC SEND OUT TST 1on 2024 MISC SCAN TEST RESULTS 1 Normal [facility] Comment on above: Order Comment: Speci men Type: BLOOD SPECIMENOrdering Facility: [facility] Address: [address] [place] [address] Result Comment: Resisa arch REFERRAL LAB 1 (DROP-DOWN) Normal [facility] Comment on above: Order Comment: Speci men Type: BLOOD SPECIMENOrdering Facility: [facility] Address: [address] [place] [address] Result Comment: Rese arch TEST 1 Normal [facility] Comment on above: Order Comment: Speci men Type: BLOOD SPECIMENOrdering Facility: [facility] Address: [address] [place] [address] Result Comment: Rese arch Monocytes Auto (Bld) [#/Vol] on 04-17-2024 Monocytes (Bld) [#/Vol] Automated blood monocyte count <0.87 [facility] Monocytes/100 WBC Auto (Bld) on 04-17-2024 Monocytes/100 WBC (Bld) Automated monocyte % [facility] Neutrophils Auto (Bld) [#/Vo l]on 04-17-2024 Neutrophils (Bld) [#/Vol] Neutrophils [#/volume] in Blood by Automated count High 1.45-7.50 [facility] Neutrophils/100 WBC Auto (Bl d)on 04-17-2024 Neutrophils/100 WBC (Bld) Automated neutrophil % [facility] No Panel Informationon 04-17 Estimated GFR (CKD-EPI) 86 mL/min/1.73m??? >=60 [facility] Comment on above: Estimated Glomerular Filtration Rate (eGFR) is calculated using the 2020 CKD-EPI creatinine equation. This equation utilizes serum creatinine, sex, and age as parameters. The creatinine assay has traceable calibration to isotope dilution-mass spectrometry. Refer to KDIGO guidelines for clinical interpretation. In patients with unstable renal function, e.g. those with acute kidney injury, the eGFR may not accurately reflect actual GFR. Reference Lab Notation See comment [facility] Comment on above: Research Reference Lab Test Name See comment [facility] Comment on above: Research Reporting Documentation 1 See comment [facility] Comment on above: Research Nucleated RBC Auto (Bld) [#/ Vol]on 04-17-2024 Nucleated RBC (Bld) [#/Vol] Nucleated erythrocytes [#/volume] in Blood by Automated count <0.01 [facility] Nucleated erythrocytes [Pres ence] in Blood by Automated counton 04-17-2024 Nucleated RBC Auto Ql (Bld) Nucleated erythrocytes [Presence] in Blood by Automated count [facility] Platelet mean volume Auto (B ld) [Entitic vol]on 04-17-2024 Platelet mean volume (Bld) [Entitic vol] Platelet mean volume [Entitic volume] in Blood by Automated count Low 9.0-12.7 [facility] Platelets Auto (Bld) [#/Vol] on 04-17-2024 Platelets (Bld) [#/Vol] Platelets [#/volume] in Blood by Automated count High 150-400 [facility] Protein [Mass/volume] in Ser um or Plasmaon 04-17-2024 Protein [Mass/Vol] Protein [Mass/volume] in Serum or Plasma 6.3-8.0 [facility] RBC Auto (Bld) [#/Vol]on RBC (Bld) [#/Vol] Erythrocytes [#/volume] in Blood by Automated count 4.20-6.00 [facility] Serum or plasma anion gap de terminationon 04-17-2024 Anion gap [Moles/Vol] Serum or plasma anion gap determination 09-28 [facility] CBC W Auto Differential pane l (Bld)on 01-26-2024 Basophils (Bld) [#/Vol] 0.22 10*3/uL High <0.11 [facility] Comment on above: Order Comment: Speci men Type: BLOOD SPECIMENOrdering Facility: [facility] Address: [address] [place] [address] Performed By: #### 5 7021-8 ####[facility] [id number] [place] [address] [place] Basophils/100 WBC (Bld) 1.8 % Normal [facility] Comment on above: Order Comment: Speci men Type: BLOOD SPECIMENOrdering Facility: [facility] Address: [address] [place] [address] Performed By: #### 5 7021-8 ####[facility] [place] [id number] [place] [address] [place] Differential cell count method Nom (Bld) Auto Normal [facility] Comment on above: Order Comment: Speci men Type: BLOOD SPECIMENOrdering Facility: [facility] Address: [address] [place] [address] Performed By: #### 5 7021-8 ####[facility] [id number] [place] [address] [place] Eosinophils (Bld) [#/Vol] 0.41 10*3/uL Normal <0.46 [facility] Comment on above: Order Comment: Speci men Type: BLOOD SPECIMENOrdering Facility: [facility] Address: [address] [place] [address] Performed By: #### 5 7021-8 ####[facility] [id number] [place] [address] [place] Eosinophils/100 WBC (Bld) 3.3 % Normal [facility] Comment on above: Order Comment: Speci men Type: BLOOD SPECIMENOrdering Facility: [facility] Address: [address] [place] [address] Performed By: #### 5 7021-8 ####[facility] [place] [id number] [place] [address] [place] Erythrocyte distribution width (RBC) [Ratio] 20.2 % High 11.5-15.0 [facility] Comment on above: Order Comment: Speci men Type: BLOOD SPECIMENOrdering Facility: [facility] Address: [address] [place] [address] Performed By: #### 5 7021-8 ####[facility] [place] [id number] [place] [address] [place] Hematocrit (Bld) [Volume fraction] 41.6 % Normal 39.0-51.0 [facility] Comment on above: Order Comment: Speci men Type: BLOOD SPECIMENOrdering Facility: [facility] Address: [address] [place] [address] Performed By: #### 5 7021-8 ####[facility] [id number] [place] [address] [place] Hemoglobin (Bld) [Mass/Vol] 10.8 g/dL Low 13.0-17.0 [facility] Comment on above: Order Comment: Speci men Type: BLOOD SPECIMENOrdering Facility: [facility] Address: [address] [place] [address] Performed By: #### 5 7021-8 ####[facility] [place] [id number] [place] [address] [place] Immature granulocytes (Bld) [#/Vol] 0.27 10*3/uL High <0.10 [facility] Comment on above: Order Comment: Speci men Type: BLOOD SPECIMENOrdering Facility: [facility] Address: [address] [place] [address] Performed By: #### 5 7021-8 ####[facility] [id number] [place] [address] [place] Immature granulocytes/100 WBC (Bld) 2.2 % Normal [facility] Comment on above: Order Comment: Speci men Type: BLOOD SPECIMENOrdering Facility: [facility] Address: [address] [place] [address] Performed By: #### 5 7021-8 ####[facility] [place] [id number] [place] [address] [place] Lymphocytes (Bld) [#/Vol] 0.96 10*3/uL Low 1.00-4.00 [facility] Comment on above: Order Comment: Speci men Type: BLOOD SPECIMENOrdering Facility: [facility] [facility] Address: [address] [place] [address] Performed By: #### 5 7021-8 ####[facility] [id number] [place] [address] [place] Lymphocytes/100 WBC (Bld) 7.8 % Normal [facility] Comment on above: Order Comment: Speci men Type: BLOOD SPECIMENOrdering Facility: [facility] Address: [address] [place] [address] Performed By: #### 5 7021-8 ####[facility] [place] [id number] [place] [address] [place] MCH (RBC) [Entitic mass] 18.3 pg Low 26.0-34.0 [facility] Comment on above: Order Comment: Speci men Type: BLOOD SPECIMENOrdering Facility: [facility] Address: [address] [place] [address] Performed By: #### 5 7021-8 ####[facility] [id number] [place] [address] [place] MCHC (RBC) [Mass/Vol] 26.0 g/dL Low 30.5-36.0 [facility] Comment on above: Order Comment: Speci men Type: BLOOD SPECIMENOrdering Facility: [facility] Address: [address] [place] [address] Performed By: #### 5 7021-8 ####[facility] [id number] [place] [address] [place] MCV (RBC) [Entitic vol] 70.6 fL Low 80.0-100.0 [facility] Comment on above: Order Comment: Speci men Type: BLOOD SPECIMENOrdering Facility: [facility] Address: [address] [place] [address] Performed By: #### 5 7021-8 ####[facility] [id number] [place] [address] [place] Monocytes (Bld) [#/Vol] 0.43 10*3/uL Normal <0.87 [facility] Comment on above: Order Comment: Speci men Type: BLOOD SPECIMENOrdering Facility: [facility] Address: [address] [place] [address] Performed By: #### 5 7021-8 ####[facility] [id number] [place] [address] [place] Monocytes/100 WBC (Bld) 3.5 % Normal [facility] Comment on above: Order Comment: Speci men Type: BLOOD SPECIMENOrdering Facility: [facility] Address: [address] [place] [address] Performed By: #### 5 7021-8 ####[facility] [id number] [place] [address] [place] Neutrophils (Bld) [#/Vol] 10.01 10*3/uL High 1.45-7.50 [facility] Comment on above: Order Comment: Speci men Type: BLOOD SPECIMENOrdering Facility: [facility] Address: [address] [place] [address] Performed By: #### 5 7021-8 ####[facility] [place] [id number] [place] [address] [place] Neutrophils/100 WBC (Bld) 81.4 % Normal [facility] Comment on above: Order Comment: Speci men Type: BLOOD SPECIMENOrdering Facility: [facility] Address: [address] [place] [address] Performed By: #### 5 7021-8 ####[facility] [place] [id number] [place] [address] [place] Nucleated RBC (Bld) [#/Vol] 10*3/uL Normal <0.01 [facility] Comment on above: Order Comment: Speci men Type: BLOOD SPECIMENOrdering Facility: [facility] Address: [address] [place] [address] Performed By: #### 5 7021-8 ####[facility] [id number] [place] [address] [place] Nucleated RBC/100 WBC (Bld) [Ratio] 0.0 /100 WBC Normal [facility] Comment on above: Order Comment: Speci men Type: BLOOD SPECIMENOrdering Facility: [facility] Address: [address] [place] [address] Performed By: #### 5 7021-8 ####[facility] [id number] [place] [address] [place] Platelet mean volume (Bld) [Entitic vol] 8.5 fL Low 9.0-12.7 [facility] Comment on above: Order Comment: Speci men Type: BLOOD SPECIMENOrdering Facility: [facility] Address: [address] [place] [address] Performed By: #### 5 7021-8 ####[facility] [id number] [place] [address] [place] Platelets (Bld) [#/Vol] 823 10*3/uL High 150-400 [facility] Comment on above: Order Comment: Speci men Type: BLOOD SPECIMENOrdering Facility: [facility] Address: [address] [place] [address] Performed By: #### 5 7021-8 ####[facility] [place] [id number] [place] [address] [place] RBC (Bld) [#/Vol] 5.89 10*6/uL Normal 4.20-6.00 [facility] Comment on above: Order Comment: Speci men Type: BLOOD SPECIMENOrdering Facility: [facility] Address: [address] [place] [address] Performed By: #### 5 7021-8 ####[facility] [place] [id number] [place] [address] [place] WBC (Bld) [#/Vol] 12.30 10*3/uL High 3.70-11.00 [facility] Comment on above: Order Comment: Speci men Type: BLOOD SPECIMENOrdering Facility: [facility] Address: [address] [place] [address] Performed By: #### 5 7021-8 ####[facility] [id number] [place] [address] [place] CNNURSEon 01-26-2024 CNNURSE Nurse Visit (VENKAT TERRELL) SHARONANIL ([id number]) 1965 M Date Time Provider Department 01/26/24 11:00 AM HANNAH LYONS During your visit today, we recorded the following information about you: Hannah Lyons RN 01/26/2024 6:35 PM Signed Title:An Extension Study to Evaluate the Long-term Safety of [place] (PTG-300) in Subjects with Polycythemia Vera Consent expiration 04/13/2024 Screening date: 05/19/2023 Subject#: [id number] PTG 1Z21: Week 1 02/26/2021. EOT 05/19/2023. Rolled over to PTG 192 on 05/19/2023. Week 0: 05/19/2023 PTG-300 45 mg SC weekly Week 4: 06/16/2023 Maintain dosing Week 8+: 07/14/2023 Maintain dosing Patient is here today for Week 36 VISIT for the PTG 1923 Trial, IRB# [id number]. Patient signed Informed Consent on 05/19/2023, prior to any study related procedures. PE: Dr. Ventura Patient is a Male with [...] any symptoms or concerns with injection sites. Dr. Ventura discussed updates with clinical trial with pt and his . Pt to maintain dosing at 45 mg SC weekly of PTG-300. Pt agrees with the plan. First Visit May 19, 2023: Patient does continue to meet eligibility to proceed with therapy Subsequent Visit January 26, 2024: Patient does continue to meet parameters to proceed with therapy Concomitant medications reviewed per protocol: yes Changes per patient: No Quality of life questionnaire completed per protocol: Yes Clinical trial labs completed per protocol: Yes Vitals completed per protocol: Yes Derm exam of sun-exposed areas completed: Yes by Dr. Ventura. ECO EKG: Not required this visit Spleen: [...] 0 Enrique WILLINGHAM et alJ Clin Oncol 2012;30:1426-3611. PAST MEDICAL HISTORY Diagnosis Date Status/Active Issues [...] cokes. Denies recreational drug use. 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 Normal [facility] CNOVSPon 01-26-2024 CNOVSP Visit (SP) Office (HEMAMN) SHARONSEGUDNOANIL ([id number]) 1965 M Date Time Provider Department 01/26/24 11:00 AM BRYCE VENTURA HEMAMN During your visit today, we recorded the following information about you: Temperature Pulse Respiration Blood pressure 97.8 degrees 86/minute 18/minute 136/63 Weight 86.7 kg Bryce Ventura MD 01/30/2024 9:27 AM Signed Some elements copied from note on 11/03/2023, the elements have been updated and all reflect current decision making from today, 01/26/2024. [facility] Clinical Note Assessment and Plan In summary: Mr. Leos is a 58 year old gentleman with polycythemia vera. Problem List Polycythemia vera He has a history of erythrocytosis. He also [...] He started treatment with PTG-300 on 02/26/2021 (phase II study). Since starting he has not required phlebotomies. He is overall doing quite well. No pain today. He did not meet with dermatology as the spots had disappeared. He has an appointment coming up for his annual skin check. Appetite has been good. Minimal injection site reaction with the larger injection. Weight is overall stable. 01/26/24 HcT today at 41.6. WBC 12.3 and platelets 823. Will require dose adjustment if HcT > 43%. Will continue to monitor per study protocol. Continue current regimen Labs in 1 month, follow up in 2 months/per study protocol. Walker Hernandez MD Fellow Visit Details Past Medical History He is here today for follow up. Overall he is feeling well and offers no new complaints. Has some bilateral hip and knee pains, worst in R knee. Has not required phlebotomy since starting on [...] 0 Enrique WILLINGHAM et alJ Clin Oncol 2012;30:2275-1290. Review of Systems PAIN ASSESSMENT: Negative for history of chronic pain, or current treatment for a chronic pain condition GENERAL: No weight loss, malaise or fevers. HEENT: Positive forsignificant headaches, now resolved. No changes in hearing or vision, no nose bleeds or other nasal problems RESPIRATORY: Negative for cough, hemoptysis, wheezing or shortness of breath CARDIOVASCULAR: Negative for chest pain, leg swelling or palpitations. GI: No nausea, vomiting, or diarrhea : No history of dysuria, frequency or incontinence. MUSCULOSKELETAL: Bilateral hip and knee pains SKIN: Negative for lesions, rash, Positive for intermittent itching to scalp and face, unchanged. HEMATOLOGY/LYMPHOLOG Y: Negative for prolonged bleeding, bruising easily or [...] COLONOSCOPY 2014 INGUINAL HERNIA REPAIR HX TONSILLECTOMY AND ADENOIDECTOMY Family History Reviewed Including Cardiac Diseases, Psychiatric Diseases, AND Substance Abuse Problem: Hypertension Relation: Mother Age [...] Sister Age of Onset: (Not Specified) Problem: Parkinson?s Disease Relation: Maternal Grandmother Age of Onset: (Not Specified) Problem: Lung Cancer Relation: Paternal Grandmother Age of Onset: (more content not included)... Normal [facility] metabolic 2000 panelon 01-26-2024 Albumin [Mass/Vol] 4.5 g/dL Normal 3.9-4.9 [facility] Comment on above: Order Comment: Speci men Type: BLOOD SPECIMENOrdering Facility: [facility] Address: [address] [place] [address] Performed By: #### 2 4323-8 ####[facility] LABCLIA [id number] [place] [address] [place] ALP [Catalytic activity/Vol] 65 U/L Normal 38-113 [facility] Comment on above: Order Comment: Speci men Type: BLOOD SPECIMENOrdering Facility: [facility] Address: [address] [place] [address] Performed By: #### 2 4323-8 ####[facility] LABCLIA [id number] [place] [address] [place] ALT [Catalytic activity/Vol] 25 U/L Normal 10-54 [facility] Comment on above: Order Comment: Speci men Type: BLOOD SPECIMENOrdering Facility: [facility] Address: [address] [place] [address] Performed By: #### 2 4323-8 ####[facility] LABCLIA [id number] [place] [address] [place] Anion gap [Moles/Vol] 9 mmol/L Normal 8-15 [facility] Comment on above: Order Comment: Speci men Type: BLOOD SPECIMENOrdering Facility: [facility] Address: [address] [place] [address] Performed By: #### 2 4323-8 ####[facility] LABCLIA [id number] [place] [address] [place] AST [Catalytic activity/Vol] 30 U/L Normal 14-40 [facility] Comment on above: Order Comment: Speci men Type: BLOOD SPECIMENOrdering Facility: [facility] Address: [address] [place] [address] Performed By: #### 2 4323-8 ####[facility] LABCLIA [id number] [place] [address] [place] Bilirubin [Mass/Vol] 0.5 mg/dL Normal 0.2-1.3 [facility] Comment on above: Order Comment: Speci men Type: BLOOD SPECIMENOrdering Facility: [facility] Address: [address] [place] [address] Performed By: #### 2 4323-8 ####[facility] LABCLIA [id number] [place] [address] [place] Calcium [Mass/Vol] 9.1 mg/dL Normal 8.5-10.2 [facility] Comment on above: Order Comment: Speci men Type: BLOOD SPECIMENOrdering Facility: [facility] Address: [address] [place] [address] Performed By: #### 2 4323-8 ####[facility] LABCLIA [id number] [place] [address] [place] Chloride [Moles/Vol] 105 mmol/L Normal 98-107 [facility] Comment on above: Order Comment: Speci men Type: BLOOD SPECIMENOrdering Facility: [facility] Address: [address] [place] [address] Performed By: #### 2 4323-8 ####[facility] LABCLIA [id number] [place] [address] [place] CO2 [Moles/Vol] 26 mmol/L Normal 22-30 [facility] Comment on above: Order Comment: Speci men Type: BLOOD SPECIMENOrdering Facility: [facility] Address: [address] [place], [place] [address] Performed By: #### 2 4323-8 ####[facility] LABCLIA [id number] [place] [address] [place] Creatinine [Mass/Vol] 0.90 mg/dL Normal 0.73-1.22 [facility] Comment on above: Order Comment: Speci men Type: BLOOD SPECIMENOrdering Facility: [facility] Address: [address] [place] [address] Performed By: #### 2 4323-8 ####[facility] LABIA [id number] [place] [address] [place] Creatinine and Glomerular filtration rate.predicted panel (S/P/Bld) 98 mL/min/1.73m??? Normal >=60 [facility] Comment on above: Order Comment: Abhishek flores Type: BLOOD SPECIMENOrdering Facility: [facility] Address: [address] [place] [address] Result Comment: Romi mated Glomerular Filtration Rate [...] actual GFR. Performed By: #### 2 4323-8 ####[facility] LABIA [id number] [place] [address] [place] Glucose [Mass/Vol] 87 mg/dL Normal 74-99 [facility] Comment on above: Order Comment: Abhishek flores Type: BLOOD SPECIMENOrdering Facility: [facility] Address: [address] [place] [address] Result Comment: The [place] Diabetes Association (ADA) provides guidance for cutoff values for fasting glucose and random glucose. The ADA defines fasting as no caloric intake for at least 8 hours. Fasting plasma glucose results between 100 to 125 mg/dL indicate increased risk for diabetes (prediabetes). Fasting plasma glucose results greater than or equal to 126 mg/dL meet the criteria for diagnosis of diabetes. In the absence of unequivocal hyperglycemia, results should be confirmed by repeat testing. In a patient with classic symptoms of hyperglycemia or hyperglycemic crisis, random plasma glucose results greater than or equal to 200 mg/dL meet the criteria for diagnosis of diabetes. Reference: Standards of Medical Care in Diabetes 2016, [place] Diabetes Association. Diabetes Care. 2016.39(Suppl 1). Performed By: #### 2 4323-8 ####[facility] LABCLIA [id number] [place] [address] [place] Potassium [Moles/Vol] 4.6 mmol/L Normal 3.7-5.1 [facility] Comment on above: Order Comment: Speci men Type: BLOOD SPECIMENOrdering Facility: [facility] Address: [address] [place] [address] Performed By: #### 2 4323-8 ####[facility] LABCLIA [id number] [place] [address] [place] Protein [Mass/Vol] 6.9 g/dL Normal 6.3-8.0 [facility] Comment on above: Order Comment: Speci men Type: BLOOD SPECIMENOrdering Facility: [facility] Address: [address] [place] [address] Performed By: #### 2 4323-8 ####[facility] LABIA [id number] [place] [address] [place] Sodium [Moles/Vol] 140 mmol/L Normal 136-144 [facility] Comment on above: Order Comment: Speci men Type: BLOOD SPECIMENOrdering Facility: [facility] Address: [address] [place] [address] Performed By: #### 2 4323-8 ####[facility] LABCLIA [id number] [place] [address] [place] Urea nitrogen [Mass/Vol] 19 mg/dL Normal 9-24 [facility] Comment on above: Order Comment: Speci men Type: BLOOD SPECIMENOrdering Facility: [facility] Address: [address] [place] [address] Performed By: #### 2 4323-8 ####[facility] LABCLIA [id number] [place] [address] [place] CBC W Auto Differential pane l (Bld)on 11-03-2023 Basophils (Bld) [#/Vol] 0.13 10*3/uL High <0.11 [facility] Comment on above: Order Comment: Speci men Type: BLOOD SPECIMENOrdering Facility: [facility] Address: [address] [place] [address] Performed By: #### 5 7021-8 ####[facility] [id number] [place] [address] [place] Basophils/100 WBC (Bld) 1.1 % Normal [facility] Comment on above: Order Comment: Speci men Type: BLOOD SPECIMENOrdering Facility: [facility] Address: [address] [place] [address] Performed By: #### 5 7021-8 ####[facility] [place] [id number] [place] [address] [place] Differential cell count method Nom (Bld) Auto Normal [facility] Comment on above: Order Comment: Speci men Type: BLOOD SPECIMENOrdering Facility: [facility] Address: [address] [place] [address] Performed By: #### 5 7021-8 ####[facility] [place] [id number] [place] [address] [place] Eosinophils (Bld) [#/Vol] 0.32 10*3/uL Normal <0.46 [facility] Comment on above: Order Comment: Speci men Type: BLOOD SPECIMENOrdering Facility: [facility] Address: [address] [place] [address] Performed By: #### 5 7021-8 ####[facility] [id number] [place] [address] [place] Eosinophils/100 WBC (Bld) 2.8 % Normal [facility] Comment on above: Order Comment: Speci men Type: BLOOD SPECIMENOrdering Facility: [facility] Address: [address] [place] [address] Performed By: #### 5 7021-8 ####[facility] [id number] [place] [address] [place] Erythrocyte distribution width (RBC) [Ratio] 20.5 % High 11.5-15.0 [facility] Comment on above: Order Comment: Speci men Type: BLOOD SPECIMENOrdering Facility: [facility] Address: [address] [place] [address] Performed By: #### 5 7021-8 ####[facility] [id number] [place] [address] [place] Hematocrit (Bld) [Volume fraction] 42.8 % Normal 39.0-51.0 [facility] Comment on above: Order Comment: Speci men Type: BLOOD SPECIMENOrdering Facility: [facility] Address: [address] [place] [address] Performed By: #### 5 7021-8 ####[facility] [place] [id number] [place] [address] [place] Hemoglobin (Bld) [Mass/Vol] 11.0 g/dL Low 13.0-17.0 [facility] Comment on above: Order Comment: Speci men Type: BLOOD SPECIMENOrdering Facility: [facility] Address: [address] [place] [address] Performed By: #### 5 7021-8 ####[facility] [id number] [place] [address] [place] Immature granulocytes (Bld) [#/Vol] 0.16 10*3/uL High <0.10 [facility] Comment on above: Order Comment: Speci men Type: BLOOD SPECIMENOrdering Facility: [facility] Address: [address] [place] [address] Performed By: #### 5 7021-8 ####[facility] [id number] [place] [address] [place] Immature granulocytes/100 WBC (Bld) 1.4 % Normal [facility] Comment on above: Order Comment: Speci men Type: BLOOD SPECIMENOrdering Facility: [facility] Address: [address] [place] [address] Performed By: #### 5 7021-8 ####[facility] [id number] [place] [address] [place] Lymphocytes (Bld) [#/Vol] 0.96 10*3/uL Low 1.00-4.00 [facility] Comment on above: Order Comment: Speci men Type: BLOOD SPECIMENOrdering Facility: [facility] Address: [address] [place] [address] Performed By: #### 5 7021-8 ####[facility] [id number] [place] [address] [place] Lymphocytes/100 WBC (Bld) 8.3 % Normal [facility] Comment on above: Order Comment: Speci men Type: BLOOD SPECIMENOrdering Facility: [facility] Address: [address] [place] [address] Performed By: #### 5 7021-8 ####[facility] [id number] [place] [address] [place] MCH (RBC) [Entitic mass] 18.2 pg Low 26.0-34.0 [facility] Comment on above: Order Comment: Speci men Type: BLOOD SPECIMENOrdering Facility: [facility] Address: [address] [place] [address] Performed By: #### 5 7021-8 ####[facility] [id number] [place] [address] [place] MCHC (RBC) [Mass/Vol] 25.7 g/dL Low 30.5-36.0 [facility] Comment on above: Order Comment: Speci men Type: BLOOD SPECIMENOrdering Facility: [facility] Address: [address] [place] [address] Performed By: #### 5 7021-8 ####[facility] [id number] [place] [address] [place] MCV (RBC) [Entitic vol] 71.0 fL Low 80.0-100.0 [facility] Comment on above: Order Comment: Speci men Type: BLOOD SPECIMENOrdering Facility: [facility] Address: [address] [place] [address] Performed By: #### 5 7021-8 ####[facility] [id number] [place] [address] [place] Monocytes (Bld) [#/Vol] 0.44 10*3/uL Normal <0.87 [facility] Comment on above: Order Comment: Speci men Type: BLOOD SPECIMENOrdering Facility: [facility] Address: [address] [place] [address] Performed By: #### 5 7021-8 ####[facility] [id number] [place] [address] [place] Monocytes/100 WBC (Bld) 3.8 % Normal [facility] Comment on above: Order Comment: Speci men Type: BLOOD SPECIMENOrdering Facility: [facility] Address: [address] [place] [address] Performed By: #### 5 7021-8 ####[facility] [id number] [place] [address] [place] Neutrophils (Bld) [#/Vol] 9.56 10*3/uL High 1.45-7.50 [facility] Comment on above: Order Comment: Speci men Type: BLOOD SPECIMENOrdering Facility: [facility] Address: [address] [place] [address] Performed By: #### 5 7021-8 ####[facility] [id number] [place] [address] [place] Neutrophils/100 WBC (Bld) 82.6 % Normal [facility] Comment on above: Order Comment: Speci men Type: BLOOD SPECIMENOrdering Facility: [facility] [facility] Address: [address] [place] [address] Performed By: #### 5 7021-8 ####[facility] [id number] [place] [address] [place] Nucleated RBC (Bld) [#/Vol] 10*3/uL Normal <0.01 [facility] Comment on above: Order Comment: Speci men Type: BLOOD SPECIMENOrdering Facility: [facility] Address: [address] [place] [address] Performed By: #### 5 7021-8 ####[facility] [id number] [place] [address] [place] Nucleated RBC/100 WBC (Bld) [Ratio] 0.0 /100 WBC Normal [facility] Comment on above: Order Comment: Speci men Type: BLOOD SPECIMENOrdering Facility: [facility] Address: [address] [place] [address] Performed By: #### 5 7021-8 ####[facility] [id number] [place] [address] [place] Platelet mean volume (Bld) [Entitic vol] 8.2 fL Low 9.0-12.7 [facility] Comment on above: Order Comment: Speci men Type: BLOOD SPECIMENOrdering Facility: [facility] Address: [address] [place] [address] Performed By: #### 5 7021-8 ####[facility] [id number] [place] [address] [place] Platelets (Bld) [#/Vol] 764 10*3/uL High 150-400 [facility] Comment on above: Order Comment: Speci men Type: BLOOD SPECIMENOrdering Facility: [facility] Address: [address] [place] [address] Performed By: #### 5 7021-8 ####[facility] [id number] [place] [address] [place] RBC (Bld) [#/Vol] 6.03 10*6/uL High 4.20-6.00 [facility] Comment on above: Order Comment: Speci men Type: BLOOD SPECIMENOrdering Facility: [facility] Address: [address] [place] [address] Performed By: #### 5 7021-8 ####[facility] [id number] [place] [address] [place] WBC (Bld) [#/Vol] 11.57 10*3/uL High 3.70-11.00 [facility] Comment on above: Order Comment: Speci men Type: BLOOD SPECIMENOrdering Facility: [facility] Address: [address] [place] [address] Performed By: #### 5 7021-8 ####[facility] [id number] [place] [address] [place] CNNURSEon 11-03-2023 CNNURSE Nurse Visit (VENKAT TERRELL) ANIL LEOS ([id number]) 1965 M Date Time Provider Department 11/03/23 11:00 AM HANNAH LYONS During your visit today, we recorded the following information about you: Hannah Lyons RN 11/03/2023 2:03 PM Signed Title:An Extension Study to Evaluate the Long-term Safety of [place] (PTG-300) in Subjects with Polycythemia Vera Consent expiration 04/13/2024 Screening date: 05/19/2023 Subject#: [id number] PTG 1Z21: Week 1 02/26/2021. EOT 05/19/2023. Rolled over to PTG 1923 on 05/19/2023. Week 0: 05/19/2023 PTG-300 45 mg SC weekly Week 4: 06/16/2023 Maintain dosing Week 8+: 07/14/2023 Maintain dosing Patient is here today for Week 24 VISIT for the PTG 1923 Trial, IRB# [id number]. Patient signed Informed Consent on 05/19/2023, prior to any study related procedures. PE: Dr. Ventura Patient is a Male with [...] symptoms or concerns with injection sites. Pt reports bilateral hip and knee pain that started about 3-4 months ago. Pt used to walk on the treadmill at a fast pace and an incline but can no longer tolerate the incline or the fast pace. Pt is able to walk without difficulties. Pt is not taking any medications for the pain. Pt plans to have his left hip and right knee looked at after the fall season because they are causing more pain. Dr. Ventura considered increasing PTG-300 today for HCT of 42.8% since previous HCT was 40.5%. After considering Hgb has been 10-11 at the 45 mg dosing and the pt's MCV remains low with last phlebotomy occurring in Feb 2021, he feels the Hgb may go below 10 with increased PTG-300 dose and will have to dose reduce back to 45 mg. Will keep PTG-300 at 45 mg weekly at this time. First Visit May 19, 2023: Patient does continue to meet eligibility to proceed with therapy Subsequent Visit November 03, 2023: Patient does continue to meet parameters [...] 0 Enrique WILLINGHAM et alJ Clin Oncol 2012;30:3918-9753. PAST MEDICAL HISTORY Diagnosis Date Status/Active Issues [...] cokes. Denies recreational drug use. 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 Normal [facility] CNOVSPon 11-03-2023 CNOVSP Visit (SP) Office (HEMAMN) ANIL LEOS ([id number]) 1965 M Date Time Provider Department 11/03/23 11:00 AM BRYCE VENTURA HEMAMN During your visit today, we recorded the following information about you: Temperature Pulse Respiration Blood pressure 97.8 degrees 76/minute 20/minute 132/56 Weight 85.4 kg Bryce Ventura MD 11/03/2023 2:22 PM Signed Some elements copied from note on 02/25/2022, the elements have been updated and all reflect current decision making from today, 11/03/2023. [facility] Clinical Note Assessment and Plan In summary: Mr. Leos is a 58 year old gentleman with polycythemia vera. Problem List Polycythemia vera He has a history of erythrocytosis. He also [...] He started treatment with PTG-300 on 02/26/2021 (phase II study). Since starting he has not required phlebotomies. He is overall doing quite well. No pain today. He did not meet with dermatology as the spots had disappeared. He has an appointment coming up for his annual skin check. Appetite has been good. Minimal injection site reaction with the larger injection. Weight is overall stable. HcT today 42.8%. Will require dose increase if HcT > 43%. Will continue to monitor per study protocol. Labs in 1 month, follow up in 2 months/per study protocol. Shireen Talamantes MD, MPH, FACP PGY-V Hematology/Oncology Fellow Pager: [phone] Date: 11/03/2023 Time: 11:48 AM Visit Details Past Medical History He is here today for follow up. Overall he is feeling well and offers no new complaints. Has some bilateral hip and knee pains, worst in R knee. Has not required phlebotomy since starting on [...] 0 Enrique WILLINGHAM et alJ Clin Oncol 2012;30:8486-9771. Review of Systems PAIN ASSESSMENT: Negative for history of chronic pain, or current treatment for a chronic pain condition GENERAL: No weight loss, malaise or fevers. HEENT: Positive forsignificant headaches, now resolved. No changes in hearing or vision, no nose bleeds or other nasal problems RESPIRATORY: Negative for cough, hemoptysis, wheezing or shortness of breath CARDIOVASCULAR: Negative for chest pain, leg swelling or palpitations. GI: No nausea, vomiting, or diarrhea : No history of dysuria, frequency or incontinence. MUSCULOSKELETAL: Bilateral hip and knee pains SKIN: Negative for lesions, rash, Positive for intermittent itching to scalp and face, unchanged. HEMATOLOGY/LYMPHOLOG Y: Negative for prolonged bleeding, bruising easily or [...] COLONOSCOPY 2014 INGUINAL HERNIA REPAIR HX TONSILLECTOMY AND ADENOIDECTOMY Family History Reviewed Including Cardiac Diseases, Psychiatric Diseases, AND Substance Abuse Problem: Hypertension Relation: Mother Age [...] Sister Age of Onset: (Not Specified) Problem: Parkinson?s Disease Relation: Maternal Grandmother Age of Onset: (Not Specified) Problem: Lung Cancer Relation: Paternal Gran (more content not included)... Normal [facility] Comprehensive metabolic 2000 panelon 11-03-2023 Albumin [Mass/Vol] 4.7 g/dL Normal 3.9-4.9 [facility] Comment on above: Order Comment: Speci men Type: BLOOD SPECIMENOrdering Facility: [facility] Address: [address] [place] [address] Performed By: #### 2 4323-8 ####[facility] [id number] [place] [address] [place] ALP [Catalytic activity/Vol] 63 U/L Normal 38-113 [facility] Comment on above: Order Comment: Speci men Type: BLOOD SPECIMENOrdering Facility: [facility] Address: [address] [place] [address] Performed By: #### 2 4323-8 ####[facility] [id number] [place] [address] [place] ALT [Catalytic activity/Vol] 18 U/L Normal 10-54 [facility] Comment on above: Order Comment: Speci men Type: BLOOD SPECIMENOrdering Facility: [facility] Address: [address] [place] [address] Performed By: #### 2 4323-8 ####[facility] [id number] [place] [address] [place] Anion gap [Moles/Vol] 8 mmol/L Normal 8-15 [facility] Comment on above: Order Comment: Speci men Type: BLOOD SPECIMENOrdering Facility: [facility] Address: [address] [place] [address] Performed By: #### 2 4323-8 ####[facility] [id number] [place] [address] [place] AST [Catalytic activity/Vol] 25 U/L Normal 14-40 [facility] Comment on above: Order Comment: Speci men Type: BLOOD SPECIMENOrdering Facility: [facility] Address: [address] [place] [address] Performed By: #### 2 4323-8 ####[facility] [id number] [place] [address] [place] Bilirubin [Mass/Vol] 0.6 mg/dL Normal 0.2-1.3 [facility] Comment on above: Order Comment: Speci men Type: BLOOD SPECIMENOrdering Facility: [facility] Address: [address] [place] [address] Performed By: #### 2 4323-8 ####[facility] [id number] [place] [address] [place] Calcium [Mass/Vol] 9.2 mg/dL Normal 8.5-10.2 [facility] Comment on above: Order Comment: Speci men Type: BLOOD SPECIMENOrdering Facility: [facility] Address: [address] [place] [address] Performed By: #### 2 4323-8 ####[facility] [id number] [place] [address] [place] Chloride [Moles/Vol] 105 mmol/L Normal 98-107 [facility] Comment on above: Order Comment: Speci men Type: BLOOD SPECIMENOrdering Facility: [facility] Address: [address] [place] [address] Performed By: #### 2 4323-8 ####[facility] [id number] [place] [address] [place] CO2 [Moles/Vol] 27 mmol/L Normal 22-30 [facility] Comment on above: Order Comment: Speci men Type: BLOOD SPECIMENOrdering Facility: [facility] Address: [address] [place] [address] Performed By: #### 2 4323-8 ####[facility] [id number] [place] [address] [place] Creatinine [Mass/Vol] 0.97 mg/dL Normal 0.73-1.22 [facility] Comment on above: Order Comment: Speci men Type: BLOOD SPECIMENOrdering Facility: [facility] Address: [address] [place] [address] Performed By: #### 2 4323-8 ####[facility] [id number] [place] [address] [place] Creatinine and Glomerular filtration rate.predicted panel (S/P/Bld) 90 mL/min/1.73m??? Normal >=60 [facility] Comment on above: Order Comment: Speci men Type: BLOOD SPECIMENOrdering Facility: [facility] Address: [address] [place] [address] Result Comment: Romi mated Glomerular Filtration Rate [...] By: #### 2 4323-8 ####[facility] [id number] [place] [address] [place] Glucose [Mass/Vol] 101 mg/dL High 74-99 [facility] Comment on above: Order Comment: Abhishek flores Type: BLOOD SPECIMENOrdering Facility: [facility] Address: [address] [place] [address] Result Comment: The [place] Diabetes Association (ADA) provides guidance for cutoff values for fasting glucose and random glucose. The ADA defines fasting as no caloric intake for at least 8 hours. Fasting plasma glucose results between 100 to 125 mg/dL indicate increased risk for diabetes (prediabetes). Fasting plasma glucose results greater than or equal to 126 mg/dL meet the criteria for diagnosis of diabetes. In the absence of unequivocal hyperglycemia, results should be confirmed by repeat testing. In a patient with classic symptoms of hyperglycemia or hyperglycemic crisis, random plasma glucose results greater than or equal to 200 mg/dL meet the criteria for diagnosis of diabetes. Reference: Standards of Medical Care in Diabetes 2016, [place] Diabetes Association. Diabetes Care. 2016.39(Suppl 1). Performed By: #### 2 4323-8 ####[facility] [id number] [place] [address] [place] Potassium [Moles/Vol] 4.5 mmol/L Normal 3.7-5.1 [facility] Comment on above: Order Comment: Abhishek flores Type: BLOOD SPECIMENOrdering Facility: [facility] Address: [address] [place] [address] Performed By: #### 2 4323-8 ####[facility] [id number] [place] [address] [place] Protein [Mass/Vol] 6.9 g/dL Normal 6.3-8.0 [facility] Comment on above: Order Comment: Speci men Type: BLOOD SPECIMENOrdering Facility: [facility] Address: [address] [place] [address] Performed By: #### 2 4323-8 ####[facility] [id number] [place] [address] [place] Sodium [Moles/Vol] 140 mmol/L Normal 136-144 [facility] Comment on above: Order Comment: Speci men Type: BLOOD SPECIMENOrdering Facility: [facility] Address: [address] [place] [address] Performed By: #### 2 4323-8 ####[facility] [id number] [place] [address] [place] Urea nitrogen [Mass/Vol] 18 mg/dL Normal 9-24 [facility] Comment on above: Order Comment: Speci men Type: BLOOD SPECIMENOrdering Facility: [facility] Address: [address] [place] [address] Performed By: #### 2 4323-8 ####[facility] [id number] [place] [address] [place] CBC W Auto Differential pane l (Bld)on 08-11-2023 Basophils (Bld) [#/Vol] 0.22 10*3/uL High <0.11 [facility] Comment on above: Order Comment: Speci men Type: BLOOD SPECIMENOrdering Facility: [facility] Address: [address] [place] [address] Performed By: #### 5 7021-8 ####[facility] [id number] [place] [address] [place] Basophils/100 WBC (Bld) 1.6 % Normal [facility] Comment on above: Order Comment: Speci men Type: BLOOD SPECIMENOrdering Facility: [facility] Address: [address] [place] [address] Performed By: #### 5 7021-8 ####[facility] [id number] [place] [address] [place] Differential cell count method Nom (Bld) Auto Normal [facility] Comment on above: Order Comment: Speci men Type: BLOOD SPECIMENOrdering Facility: [facility] Address: [address] [place] [address] Performed By: #### 5 7021-8 ####[facility] [id number] [place] [address] [place] Eosinophils (Bld) [#/Vol] 0.40 10*3/uL Normal <0.46 [facility] Comment on above: Order Comment: Speci men Type: BLOOD SPECIMENOrdering Facility: [facility] Address: [address] [place] [address] Performed By: #### 5 7021-8 ####[facility] [id number] [place] [address] [place] Eosinophils/100 WBC (Bld) 2.9 % Normal [facility] Comment on above: Order Comment: Speci men Type: BLOOD SPECIMENOrdering Facility: [facility] Address: [address] [place] [address] Performed By: #### 5 7021-8 ####[facility] [id number] [place] [address] [place] Erythrocyte distribution width (RBC) [Ratio] 20.6 % High 11.5-15.0 [facility] Comment on above: Order Comment: Speci men Type: BLOOD SPECIMENOrdering Facility: [facility] Address: [address] [place] [address] Performed By: #### 5 7021-8 ####[facility] [id number] [place] [address] [place] Hematocrit (Bld) [Volume fraction] 40.5 % Normal 39.0-51.0 [facility] Comment on above: Order Comment: Speci men Type: BLOOD SPECIMENOrdering Facility: [facility] Address: [address] [place] [address] Performed By: #### 5 7021-8 ####[facility] [id number] [place] [address] [place] Hemoglobin (Bld) [Mass/Vol] 10.4 g/dL Low 13.0-17.0 [facility] Comment on above: Order Comment: Speci men Type: BLOOD SPECIMENOrdering Facility: [facility] Address: [address] [place] [address] Performed By: #### 5 7021-8 ####[facility] [id number] [place] [address] [place] Immature granulocytes (Bld) [#/Vol] 0.34 10*3/uL High <0.10 [facility] Comment on above: Order Comment: Speci men Type: BLOOD SPECIMENOrdering Facility: [facility] Address: [address] [place] [address] Performed By: #### 5 7021-8 ####[facility] [id number] [place] [address] [place] Immature granulocytes/100 WBC (Bld) 2.5 % Normal [facility] Comment on above: Order Comment: Speci men Type: BLOOD SPECIMENOrdering Facility: [facility] Address: [address] [place] [address] Performed By: #### 5 7021-8 ####[facility] [id number] [place] [address] [place] Lymphocytes (Bld) [#/Vol] 1.03 10*3/uL Normal 1.00-4.00 [facility] Comment on above: Order Comment: Speci men Type: BLOOD SPECIMENOrdering Facility: [facility] Address: [address] [place] [address] Performed By: #### 5 7021-8 ####[facility] [id number] [place] [address] [place] Lymphocytes/100 WBC (Bld) 7.6 % Normal [facility] Comment on above: Order Comment: Speci men Type: BLOOD SPECIMENOrdering Facility: [facility] Address: [address] [place] [address] Performed By: #### 5 7021-8 ####[facility] [id number] [place] [address] [place] MCH (RBC) [Entitic mass] 18.4 pg Low 26.0-34.0 [facility] Comment on above: Order Comment: Speci men Type: BLOOD SPECIMENOrdering Facility: [facility] Address: [address] [place] [address] Performed By: #### 5 7021-8 ####[facility] [place] [id number] [place] [address] [place] MCHC (RBC) [Mass/Vol] 25.7 g/dL Low 30.5-36.0 [facility] Comment on above: Order Comment: Speci men Type: BLOOD SPECIMENOrdering Facility: [facility] Address: [address] [place] [address] Performed By: #### 5 7021-8 ####[facility] [id number] [place] [address] [place] MCV (RBC) [Entitic vol] 71.7 fL Low 80.0-100.0 [facility] Comment on above: Order Comment: Speci men Type: BLOOD SPECIMENOrdering Facility: [facility] Address: [address] [place] [address] Performed By: #### 5 7021-8 ####[facility] [id number] [place] [address] [place] Monocytes (Bld) [#/Vol] 0.57 10*3/uL Normal <0.87 [facility] Comment on above: Order Comment: Speci men Type: BLOOD SPECIMENOrdering Facility: [facility] Address: [address] [place] [address] Performed By: #### 5 7021-8 ####[facility] [id number] [place] [address] [place] Monocytes/100 WBC (Bld) 4.2 % Normal [facility] Comment on above: Order Comment: Speci men Type: BLOOD SPECIMENOrdering Facility: [facility] Address: [address] [place] [address] Performed By: #### 5 7021-8 ####[facility] [place] [id number] [place] [address] [place] Neutrophils (Bld) [#/Vol] 11.08 10*3/uL High 1.45-7.50 [facility] Comment on above: Order Comment: Speci men Type: BLOOD SPECIMENOrdering Facility: [facility] Address: [address] [place] [address] Performed By: #### 5 7021-8 ####[facility] [id number] [place] [address] [place] Neutrophils/100 WBC (Bld) 81.2 % Normal [facility] Comment on above: Order Comment: Speci men Type: BLOOD SPECIMENOrdering Facility: [facility] Address: [address] [place] [address] Performed By: #### 5 7021-8 ####[facility] [place] [id number] [place] [address] [place] Nucleated RBC (Bld) [#/Vol] 0.02 10*3/uL High <0.01 [facility] Comment on above: Order Comment: Speci men Type: BLOOD SPECIMENOrdering Facility: [facility] Address: [address] [place] [address] Performed By: #### 5 7021-8 ####[facility] [id number] [place] [address] [place] Nucleated RBC/100 WBC (Bld) [Ratio] 0.1 /100 WBC Normal [facility] Comment on above: Order Comment: Speci men Type: BLOOD SPECIMENOrdering Facility: [facility] Address: [address] [place] [address] Performed By: #### 5 7021-8 ####[facility] [id number] [place] [address] [place] Platelet mean volume (Bld) [Entitic vol] 8.6 fL Low 9.0-12.7 [facility] Comment on above: Order Comment: Speci men Type: BLOOD SPECIMENOrdering Facility: [facility] Address: [address] [place] [address] Performed By: #### 5 7021-8 ####[facility] [id number] [place] [address] [place] Platelets (Bld) [#/Vol] 885 10*3/uL High 150-400 [facility] Comment on above: Order Comment: Speci men Type: BLOOD SPECIMENOrdering Facility: [facility] Address: [address] [place] [address] Performed By: #### 5 7021-8 ####[facility] [id number] [place] [address] [place] RBC (Bld) [#/Vol] 5.65 10*6/uL Normal 4.20-6.00 [facility] Comment on above: Order Comment: Speci men Type: BLOOD SPECIMENOrdering Facility: [facility] Address: [address] [place] [address] Performed By: #### 5 7021-8 ####[facility] [id number] [place] [address] [place] WBC (Bld) [#/Vol] 13.64 10*3/uL High 3.70-11.00 [facility] Comment on above: Order Comment: Speci men Type: BLOOD SPECIMENOrdering Facility: [facility] Address: [address] [place] [address] Performed By: #### 5 7021-8 ####[facility] [id number] [address] [place] CNNURSEon 08-11-2023 CNNURSE Nurse Visit (VENKAT TERRELL) ANIL LEOS ([id number]) 1965 M Date Time Provider Department 08/11/23 9:00 AM ANAID MABRY During your visit today, we recorded the following information about you: Anaid Mabry RN 08/11/2023 11:41 AM Signed Title:An Extension Study to Evaluate the Long-term [...] 0 Enrique WILLINGHAM et alJ Clin Oncol 2012;30:2872-6288. PAST MEDICAL HISTORY Diagnosis Date Status/Active Issues [...] cokes. Denies recreational drug use. 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 Normal [facility] CNOVSPon 08-11-2023 CNOVSP Visit (SP) Office ([facility]) ANIL LEOS ([id number]) 1965 M Date Time Provider Department 08/11/23 9:00 AM TREVA HERNÁNDEZ During your visit today, we recorded the following information about you: Temperature Pulse Respiration Blood pressure 98.3 degrees 72/minute 18/minute 135/71 Weight 84 kg Jakub Leonardo LPN 08/11/2023 9:25 AM Signed Additional intake questions: Has the patient had fever, nausea, vomiting, diarrhea, constipation, fatigue for > 1 week? No Does the patient have a decreased appetite? No Does patient want to see a Retail Banker? No (yes to any of above refer patient to schedulers for dietitian appointment) ) Does patient have any new or increased numbness or tingling of extremities? No Is patient interested in fertility information? No Does patient need any prescription refills? No Does patient have an advanced directive in place? No, Patient refused referral to Social Work or Resource Center Electronically Signed By: ANTHONY Patrick Sophia, MD 09/13/2023 1:00 PM Signed Date: 08/11/2023 Chief Complaint: Polycythemia Vera HPI: Mr. Anil Leos is a 58 year old man with polycythemia vera. He is currently on week 12 on clinical trial PTG 1923. No new skin lesions or rashes. PAST MEDICAL HISTORY Diagnosis Date Elevated prostate specific antigen (PSA) Hypertension REYMUNDO (obstructive sleep apnea) Polycythemia Seasonal allergic rhinitis due to pollen PAST SURGICAL HISTORY Procedure Laterality Date ARTHROSCOPY KNEE DIAGNOSTIC W/WO SYNOVIAL BX SPX Right CLAVICLE LEFT COLONOSCOPY 2014 INGUINAL HERNIA REPAIR HX TONSILLECTOMY AND ADENOIDECTOMY Current Outpatient Medications Medication Sig magnesium glycinate 100 mg magnesium capsule Take 2 capsules by mouth once daily. Take 2 capsules by mouth once daily in late afternoon (Patient taking differently: Take 200 mg by mouth once daily as needed. Take 2 capsules by mouth once daily in late afternoon) efinaconazole 10 % alfa Apply 1 application to affected area once daily. ruxolitinib phosphate (OPZELURA TOPICAL) Apply to affected area. KRILL OIL ORAL Take by mouth twice daily. multivitamin with minerals (ONE-A-DAY 50 PLUS ORAL) Take by mouth once daily. aspirin 81 mg cap Take by mouth once daily. ALLERGIES Allergen Reactions Bactrim [Sulfametho* Rash The patient's family history has been reviewed and is non-contributory Social History Tobacco Use Smoking status: Never Smokeless tobacco: Never Vaping Use Vaping Use: Never used Substance Use Topics Alcohol use: Yes Drug use: Not Currently Review of Systems: ECOG performance status of 0- Fully active, able to carry on all pre-disease performance w/o restriction. MPN-SAF (MPN-10) TSS: Perameter Score (0 if [...] 0 Enrique WILLINGHAM et alJ Clin Oncol 2012;30:1360-9613. Physical Examination: Vital signs: BP 135/71 Pulse 72 Temp 36.8 ?C (98.3 ?F) (Oral) Resp 18 Wt 84 kg (185 lb 3 oz) SpO2 100% BMI 27.74 kg/m? General Appearance: Well appearing, alert, in no acute distress, well-hydrated, well nourished. Eyes: Anicteric sclera. Pupils are equally round. Extraocular movements are intact. Nose: Nares normal, septum midline, mucosa normal, no drainage or sinus tenderness. Oropharynx: Lips, mucosa, and tongue normal, teeth and gums normal, oropharynx normal. Lungs: Lungs clear to auscultation. No wheezing, rhonchi, rales.. Heart: RRR without murmur, gallop, or rubs. No ectopy. Abdomen: Abdomen soft, non-tender. Bowel sounds normal. Spleen is palpable at 5 cm below inferior costal margin Extremities: No deformities, edema, skin discoloration, or cyanosiis. Neurologic: No facial droop. Speech normal. Strength is grossly symmetric in upper and lower extremities. Psychiatric: Behavior is normal. Mood is normal. Lymphatics: No cervical or supraclavicular lymphadenopathy. Skin: No skin lesions on arms or neck or face. No bruises or rashes. Relevant Data Reviewed: CBC with diff: WBC 13.64 08/11/2023 Hemoglobin 10.4 08/11/2023 Hematocrit 40.5 08/11/2023 MCV 71.7 08/11/2023 Platelet Count 885 08/11/2023 Neut% 81.2 08/11/2023 Lymph% 7.6 08/11/2023 Benton% 4.2 08/11/2023 Abs Neut (ANC) 11.08 08/11/2023 Abs Lymphs (Manual Diff) 0.48 12/02/2022 Abs Benton 0.57 08/11/2023 CMP: Sodium 140 08/11/2023 Chloride 105 08/11/2023 CO2 27 08/11/2023 Creatinine 0.98 08/11/2023 BUN 21 08/11/2023 Anion Gap 8 08/11/2023 Calcium 8.9 08/11/2023 Glucose 75 08/11/2023 Protein, Total 6.4 (more content not included)... Normal [facility] Comprehensive metabolic 2000 panelon 08-11-2023 Albumin [Mass/Vol] 4.2 g/dL Normal 3.9-4.9 [facility] Comment on above: Order Comment: Speci men Type: BLOOD SPECIMENOrdering Facility: [facility] Address: [address] [place] [address] Performed By: #### 2 4323-8 ####[facility] [id number] [place] [address] [place] ALP [Catalytic activity/Vol] 57 U/L Normal 38-113 [facility] Comment on above: Order Comment: Speci men Type: BLOOD SPECIMENOrdering Facility: [facility] Address: [address] [place] [address] Performed By: #### 2 4323-8 ####[facility] [id number] [place] [id number] [place] ALT [Catalytic activity/Vol] 16 U/L Normal 10-54 [facility] Comment on above: Order Comment: Speci men Type: BLOOD SPECIMENOrdering Facility: [facility] Address: [address] [place] [address] Performed By: #### 2 4323-8 ####[facility] [id number] [place] [address] [place] Anion gap [Moles/Vol] 8 mmol/L Normal 8-15 [facility] Comment on above: Order Comment: Speci men Type: BLOOD SPECIMENOrdering Facility: [facility] Address: [address] [place] [address] Performed By: #### 2 4323-8 ####[facility] [place] [id number] [place] [address] [place] AST [Catalytic activity/Vol] 22 U/L Normal 14-40 [facility] Comment on above: Order Comment: Speci men Type: BLOOD SPECIMENOrdering Facility: [facility] Address: [address] [place] [address] Performed By: #### 2 4323-8 ####[facility] [id number] [place] [address] [place] Bilirubin [Mass/Vol] 0.5 mg/dL Normal 0.2-1.3 [facility] Comment on above: Order Comment: Speci men Type: BLOOD SPECIMENOrdering Facility: [facility] Address: [address] [place] [address] Performed By: #### 2 4323-8 ####[facility] [place] [id number] [place] [address] [place] Calcium [Mass/Vol] 8.9 mg/dL Normal 8.5-10.2 [facility] Comment on above: Order Comment: Speci men Type: BLOOD SPECIMENOrdering Facility: [facility] Address: [address] [place] [address] Performed By: #### 2 4323-8 ####[facility] [id number] [place] [address] [place] Chloride [Moles/Vol] 105 mmol/L Normal 98-107 [facility] Comment on above: Order Comment: Speci men Type: BLOOD SPECIMENOrdering Facility: [facility] Address: [address] [place] [address] Performed By: #### 2 4323-8 ####[facility] [id number] [place] [address] [place] CO2 [Moles/Vol] 27 mmol/L Normal 22-30 [facility] Comment on above: Order Comment: Speci men Type: BLOOD SPECIMENOrdering Facility: [facility] Address: [address] [place] [address] Performed By: #### 2 4323-8 ####[facility] [id number] [place] [address] [place] Creatinine [Mass/Vol] 0.98 mg/dL Normal 0.73-1.22 [facility] Comment on above: Order Comment: Speci men Type: BLOOD SPECIMENOrdering Facility: [facility] Address: [address] [place] [address] Performed By: #### 2 4323-8 ####[facility] [id number] [place] [address] [place] Creatinine and Glomerular filtration rate.predicted panel (S/P/Bld) 89 mL/min/1.73m??? Normal >=60 [facility] Comment on above: Order Comment: Speci men Type: BLOOD SPECIMENOrdering Facility: [facility] Address: [address] [place] [address] Result Comment: Romi mated Glomerular Filtration Rate [...] By: #### 2 4323-8 ####[facility] [id number] [place] [address] [place] Glucose [Mass/Vol] 75 mg/dL Normal 74-99 [facility] Comment on above: Order Comment: Specdylon flores Type: BLOOD SPECIMENOrdering Facility: [facility] Address: [address] [place] [address] Result Comment: The [place] Diabetes Association (ADA) provides guidance for cutoff values for fasting glucose and random glucose. The ADA defines fasting as no caloric intake for at least 8 hours. Fasting plasma glucose results between 100 to 125 mg/dL indicate increased risk for diabetes (prediabetes). Fasting plasma glucose results greater than or equal to 126 mg/dL meet the criteria for diagnosis of diabetes. In the absence of unequivocal hyperglycemia, results should be confirmed by repeat testing. In a patient with classic symptoms of hyperglycemia or hyperglycemic crisis, random plasma glucose results greater than or equal to 200 mg/dL meet the criteria for diagnosis of diabetes. Reference: Standards of Medical Care in Diabetes 2016, [place] Diabetes Association. Diabetes Care. 2016.39(Suppl 1). Performed By: #### 2 4323-8 ####[facility] [id number] [place] [address] [place] Potassium [Moles/Vol] 4.2 mmol/L Normal 3.7-5.1 [facility] Comment on above: Order Comment: Abhishek flores Type: BLOOD SPECIMENOrdering Facility: [facility] Address: [address] [place] [id number] Performed By: #### 2 4323-8 ####[facility] [id number] [place] [address] [place] Protein [Mass/Vol] 6.4 g/dL Normal 6.3-8.0 [facility] Comment on above: Order Comment: Speci men Type: BLOOD SPECIMENOrdering Facility: [facility] Address: [address] [place] [address] Performed By: #### 2 4323-8 ####[facility] [id number] [place] [address] [place] Sodium [Moles/Vol] 140 mmol/L Normal 136-144 [facility] Comment on above: Order Comment: Speci men Type: BLOOD SPECIMENOrdering Facility: [facility] Address: [address] [place] [address] Performed By: #### 2 4323-8 ####[facility] [place] [id number] [place] [address] [place] Urea nitrogen [Mass/Vol] 21 mg/dL Normal 9-24 [facility] Comment on above: Order Comment: Speci men Type: BLOOD SPECIMENOrdering Facility: [facility] Address: [address] [place] [address] Performed By: #### 2 4323-8 ####[facility] [id number] [place] [address] [place] Basophils Auto (Bld) [#/Vol] on 07-14-2023 Basophils (Bld) [#/Vol] 0.23 10*3/uL <0.11 [facility] Basophils/100 WBC Auto (Bld) on 07-14-2023 Basophils/100 WBC (Bld) 1.7 % [facility] Blood manual differential co mment interpretation narrativeon 07-14-2023 Manual differential comment Van (Bld) [Interp] Auto [facility] CBC W Auto Differential pane l (Bld)on 07-14-2023 Basophils (Bld) [#/Vol] 0.23 10*3/uL High <0.11 [facility] Comment on above: Order Comment: Speci men Type: BLOOD SPECIMENOrdering Facility: [facility] Address: [address] [place] [address] Performed By: #### 5 7021-8 ####[facility] [id number] [place] [address] [place] Basophils/100 WBC (Bld) 1.7 % Normal [facility] Comment on above: Order Comment: Speci men Type: BLOOD SPECIMENOrdering Facility: [facility] Address: [address] [place] [address] Performed By: #### 5 7021-8 ####[facility] [id number] [place] [address] [place] Differential cell count method Nom (Bld) Auto Normal [facility] Comment on above: Order Comment: Speci men Type: BLOOD SPECIMENOrdering Facility: [facility] Address: [address] [place] [address] Performed By: #### 5 7021-8 ####[facility] [id number] [place] [address] [place] Eosinophils (Bld) [#/Vol] 0.36 10*3/uL Normal <0.46 [facility] Comment on above: Order Comment: Speci men Type: BLOOD SPECIMENOrdering Facility: [facility] Address: [address] [place] [address] Performed By: #### 5 7021-8 ####[facility] [id number] [place] [address] [place] Eosinophils/100 WBC (Bld) 2.7 % Normal [facility] Comment on above: Order Comment: Speci men Type: BLOOD SPECIMENOrdering Facility: [facility] Address: [address] [place] [address] Performed By: #### 5 7021-8 ####[facility] [id number] [place] [address] [place] Erythrocyte distribution width (RBC) [Ratio] 20.4 % High 11.5-15.0 [facility] Comment on above: Order Comment: Speci men Type: BLOOD SPECIMENOrdering Facility: [facility] Address: [address] [place] [address] Performed By: #### 5 7021-8 ####[facility] [place] [id number] [place] [address] [place] Hematocrit (Bld) [Volume fraction] 40.9 % Normal 39.0-51.0 [facility] Comment on above: Order Comment: Speci men Type: BLOOD SPECIMENOrdering Facility: [facility] Address: [address] [place] [address] Performed By: #### 5 7021-8 ####[facility] [id number] [place] [address] [place] Hemoglobin (Bld) [Mass/Vol] 10.6 g/dL Low 13.0-17.0 [facility] Comment on above: Order Comment: Speci men Type: BLOOD SPECIMENOrdering Facility: [facility] Address: [address] [place] [address] Performed By: #### 5 7021-8 ####[facility] [id number] [place] [address] [place] Immature granulocytes (Bld) [#/Vol] 0.29 10*3/uL High <0.10 [facility] Comment on above: Order Comment: Speci men Type: BLOOD SPECIMENOrdering Facility: [facility] Address: [address] [place] [address] Performed By: #### 5 7021-8 ####[facility] [place] [id number] [place] [address] [place] Immature granulocytes/100 WBC (Bld) 2.2 % Normal [facility] Comment on above: Order Comment: Speci men Type: BLOOD SPECIMENOrdering Facility: [facility] Address: [address] [place] [address] Performed By: #### 5 7021-8 ####[facility] [id number] [place] [address] [place] Lymphocytes (Bld) [#/Vol] 1.14 10*3/uL Normal 1.00-4.00 [facility] Comment on above: Order Comment: Speci men Type: BLOOD SPECIMENOrdering Facility: [facility] Address: [address] [place] [address] Performed By: #### 5 7021-8 ####[facility] [place] [id number] [place] [address] [place] Lymphocytes/100 WBC (Bld) 8.6 % Normal [facility] Comment on above: Order Comment: Speci men Type: BLOOD SPECIMENOrdering Facility: [facility] Address: [address] [place] [address] Performed By: #### 5 7021-8 ####[facility] [id number] [place] [address] [place] MCH (RBC) [Entitic mass] 18.8 pg Low 26.0-34.0 [facility] Comment on above: Order Comment: Speci men Type: BLOOD SPECIMENOrdering Facility: [facility] Address: [address] [place] [address] Performed By: #### 5 7021-8 ####[facility] [id number] [place] [address] [place] MCHC (RBC) [Mass/Vol] 25.9 g/dL Low 30.5-36.0 [facility] Comment on above: Order Comment: Speci men Type: BLOOD SPECIMENOrdering Facility: [facility] Address: [address] [place] [address] Performed By: #### 5 7021-8 ####[facility] [id number] [place] [address] [place] MCV (RBC) [Entitic vol] 72.4 fL Low 80.0-100.0 [facility] Comment on above: Order Comment: Speci men Type: BLOOD SPECIMENOrdering Facility: [facility] Address: [address] [place] [address] Performed By: #### 5 7021-8 ####[facility] [place] [id number] [place] [address] [place] Monocytes (Bld) [#/Vol] 0.59 10*3/uL Normal <0.87 [facility] Comment on above: Order Comment: Speci men Type: BLOOD SPECIMENOrdering Facility: [facility] Address: [address] [place] [address] Performed By: #### 5 7021-8 ####[facility] [place] [id number] [place] [address] [place] Monocytes/100 WBC (Bld) 4.5 % Normal [facility] Comment on above: Order Comment: Speci men Type: BLOOD SPECIMENOrdering Facility: [facility] Address: [address] [place] [address] Performed By: #### 5 7021-8 ####[facility] [id number] [place] [address] [place] Neutrophils (Bld) [#/Vol] 10.60 10*3/uL High 1.45-7.50 [facility] Comment on above: Order Comment: Speci men Type: BLOOD SPECIMENOrdering Facility: [facility] Address: [address] [place] [address] Performed By: #### 5 7021-8 ####[facility] [place] [id number] [place] [address] [place] Neutrophils/100 WBC (Bld) 80.3 % Normal [facility] Comment on above: Order Comment: Speci men Type: BLOOD SPECIMENOrdering Facility: [facility] Address: [address] [place] [address] Performed By: #### 5 7021-8 ####[facility] [id number] [place] [address] [place] Nucleated RBC (Bld) [#/Vol] 10*3/uL Normal <0.01 [facility] Comment on above: Order Comment: Speci men Type: BLOOD SPECIMENOrdering Facility: [facility] Address: [address] [place] [address] Performed By: #### 5 7021-8 ####[facility] [place] [id number] [place] [address] [place] Nucleated RBC/100 WBC (Bld) [Ratio] 0.0 /100 WBC Normal [facility] Comment on above: Order Comment: Speci men Type: BLOOD SPECIMENOrdering Facility: [facility] Address: [address] [place] [address] Performed By: #### 5 7021-8 ####[facility] [place] [id number] [place] [address] [place] Platelet mean volume (Bld) [Entitic vol] 8.7 fL Low 9.0-12.7 [facility] Comment on above: Order Comment: Speci men Type: BLOOD SPECIMENOrdering Facility: [facility] Address: [address] [place] [address] Performed By: #### 5 7021-8 ####[facility] [place] [id number] [place] [address] [place] Platelets (Bld) [#/Vol] 913 10*3/uL High 150-400 [facility] Comment on above: Order Comment: Speci men Type: BLOOD SPECIMENOrdering Facility: [facility] Address: [address] [place] [address] Performed By: #### 5 7021-8 ####[facility] [id number] [place] [address] [place] RBC (Bld) [#/Vol] 5.65 10*6/uL Normal 4.20-6.00 [facility] Comment on above: Order Comment: Speci men Type: BLOOD SPECIMENOrdering Facility: [facility] Address: [address] [place] [address] Performed By: #### 5 7021-8 ####[facility] [id number] [place] [address] [place] WBC (Bld) [#/Vol] 13.21 10*3/uL High 3.70-11.00 [facility] Comment on above: Order Comment: Speci men Type: BLOOD SPECIMENOrdering Facility: [facility] Address: [address] [place] [address] Performed By: #### 5 7021-8 ####[facility] [id number] [address] [facility] CNNURSEon 07-14-2023 [facility] Nurse Visit (VENKAT TERRELL) ANIL LEOS ([id number]) 1965 M Date Time Provider Department 07/14/23 9:30 AM HANNAH LYONS During your visit today, we recorded the following information about you: Hannah Lyons, RN 07/14/2023 12:31 PM Signed Title:An Extension Study to Evaluate the Long-term Safety of [place] (PTG-300) in Subjects with Polycythemia Vera Consent expiration 04/13/2024 Screening date: 05/19/2023 Subject#: [id number] PTG 1Z21: Week 1 02/26/2021. EOT 05/19/2023. Rolled over to PTG 1923 on 05/19/2023. Week 0: 05/19/2023 PTG-300 [...] 0 Enrique WILLINGHAM et alJ Clin Oncol 2012;30:8343-2486. PAST MEDICAL HISTORY Diagnosis Date Status/Active Issues [...] cokes. Denies recreational drug use. 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 Normal [facility] CNOVSPon 07-14-2023 CNOVSP Visit (SP) Office ([facility]) ANIL LEOS ([id number]) 1965 M Date Time Provider Department 07/14/23 9:30 AM KUN MATTSON During your visit today, we recorded the following information about you: Temperature Pulse Respiration Blood pressure 98.3 degrees 79/minute 18/minute 135/67 Weight 83.5 kg Hannah Berrios OCCA 07/14/2023 9:35 AM Signed Additional intake questions: Has the patient had fever, nausea, vomiting, diarrhea, constipation, fatigue for > 1 week? No Does the patient have a decreased appetite? No Does patient want to see a Retail Banker? No (yes to any of above refer patient to schedulers for dietitian appointment) ) Does patient have any new or increased numbness or tingling of extremities? No Is patient interested in fertility information? No Does patient need any prescription refills? No Does patient have an advanced directive in place? No Electronically Signed By: TANVI Andujar Olivia, APRN.[employer] 07/14/2023 1:07 PM Signed Elements have been copied from prior note on 06/16/2023 - The elements have been reviewed and updated where appropriate, and all reflect my current assessment and decision-making from today, 07/14/2023. [facility] Clinical Note Assessment and Plan In summary: [...] with any questions or concerns. Kun Mattson APRN-[facility] Hematology/Oncology Pager [phone] 1:06 PM July 14, 2023 I spent a total of 30 minutes on the date of the service which included preparing to see the patient, vaiz-hp-sise patient care, obtaining and/or reviewing separately obtained history, performing a medically appropriate examination, counseling and educating the patient/family/careg iver, ordering medications, tests, or procedures, communicating with other HCPs (not separately reported), independently interpreting results (not separately reported), and communicating results to the patient/family/careg iver. Visit Details Interval History Mr. Leos presents [...] 0 Enrique WILLINGHAM et alJ Clin Oncol 2012;30:9598-7494. Review of Systems Rev (more content not included)... Normal [facility] Comprehensive metabolic 2000 panelon 07-14-2023 Albumin [Mass/Vol] 4.4 g/dL Normal 3.9-4.9 [facility] Comment on above: Order Comment: Speci men Type: BLOOD SPECIMENOrdering Facility: [facility] Address: [address] [place] [address] Performed By: #### 2 4323-8, 93102-0 ####[facility] LABCLIA [id number] [facility] [id number] [place] [address] [place] ALP [Catalytic activity/Vol] 57 U/L Normal 38-113 [facility] Comment on above: Order Comment: Speci men Type: BLOOD SPECIMENOrdering Facility: [facility] Address: [address] [id number] Performed By: #### 2 4323-8, ####[facility] LABCLIA [id number] [place] [id number] [place] ALT [Catalytic activity/Vol] 20 U/L Normal 10-54 [facility] Comment on above: Order Comment: Speci men Type: BLOOD SPECIMENOrdering Facility: [facility] Address: [address] [place], [place] [id number] Performed By: #### 2 432-8, ####[facility] LABCLIA [id number] [place] [address] [place] Anion gap [Moles/Vol] 9 mmol/L Normal 9-18 [facility] Comment on above: Order Comment: Speci men Type: BLOOD SPECIMENOrdering Facility: [facility] Address: [address] [place] [address] Performed By: #### 2 432-8, ####[facility] LABCLIA [id number] [place] [address] [place] AST [Catalytic activity/Vol] 23 U/L Normal 14-40 [facility] Comment on above: Order Comment: Speci men Type: BLOOD SPECIMENOrdering Facility: [facility] Address: [address] [place], [place] [id number] Performed By: #### 2 4322-8, ####[facility] LABCLIA [id number] [place] [id number] [place] Bilirubin [Mass/Vol] 0.6 mg/dL Normal 0.2-1.3 [facility] Comment on above: Order Comment: Speci men Type: BLOOD SPECIMENOrdering Facility: [facility] Address: [address] [place], [place] [address] Performed By: #### 2 4322-8, ####[facility] LABCLIA [id number] [address] [address] [place] Calcium [Mass/Vol] 8.9 mg/dL Normal 8.5-10.2 [facility] Comment on above: Order Comment: Speci men Type: BLOOD SPECIMENOrdering Facility: [facility] Address: [address] [place] [address] Performed By: #### 2 4322-09, ####[facility] LABCLIA [id number] [place] [id number] [place] Chloride [Moles/Vol] 105 mmol/L Normal 97-105 [facility] Comment on above: Order Comment: Speci men Type: BLOOD SPECIMENOrdering Facility: [facility] Address: [address] [place] [address] Performed By: #### 2 4322-09, ####[facility] LABCLIA [id number] [place] [id number] [place] CO2 [Moles/Vol] 26 mmol/L Normal 22-30 [facility] Comment on above: Order Comment: Speci men Type: BLOOD SPECIMENOrdering Facility: [facility] Address: [address] [place] [address] Performed By: #### 2 4322-09, ####[facility] LABCLIA [id number] [place] [id number] [place] Creatinine [Mass/Vol] 0.96 mg/dL Normal 0.73-1.22 [facility] Comment on above: Order Comment: Speci men Type: BLOOD SPECIMENOrdering Facility: [facility] Address: [address] [place], [place] [address] Performed By: #### 2 432-8, ####[facility] LABCLIA [id number] [place] [id number] [place] Creatinine and Glomerular filtration rate.predicted panel (S/P/Bld) 91 mL/min/1.73m??? Normal >=60 [facility] Comment on above: Order Comment: Abhishek flores Type: BLOOD SPECIMENOrdering Facility: [facility] Address: [address] [place] [address] Result Comment: Romi mated Glomerular Filtration Rate [...] actual GFR. Performed By: #### 2 4323-8, ####[facility] LABCLIA [id number] [place] [address] [place] Glucose [Mass/Vol] 88 mg/dL Normal 74-99 [facility] Comment on above: Order Comment: Abhishek flores Type: BLOOD SPECIMENOrdering Facility: [facility] Address: [address] [place] [address] Result Comment: The [place] Diabetes Association (ADA) provides guidance for cutoff values for fasting glucose and random glucose. The ADA defines fasting as no caloric intake for at least 8 hours. Fasting plasma glucose results between 100 to 125 mg/dL indicate increased risk for diabetes (prediabetes). Fasting plasma glucose results greater than or equal to 126 mg/dL meet the criteria for diagnosis of diabetes. In the absence of unequivocal hyperglycemia, results should be confirmed by repeat testing. In a patient with classic symptoms of hyperglycemia or hyperglycemic crisis, random plasma glucose results greater than or equal to 200 mg/dL meet the criteria for diagnosis of diabetes. Reference: Standards of Medical Care in Diabetes 2016, [place] Diabetes Association. Diabetes Care. 2016.39(Suppl 1). Performed By: #### 2 4323-8, ####[facility] LABCLIA [id number] [place] [address] [place] Potassium [Moles/Vol] 4.2 mmol/L Normal 3.7-5.1 [facility] Comment on above: Order Comment: Speci men Type: BLOOD SPECIMENOrdering Facility: [facility] Address: [address] [place] [address] Performed By: #### 2 4323-8, ####[facility] LABCLIA [id number] [place] [address] [place] Protein [Mass/Vol] 6.4 g/dL Normal 6.3-8.0 [facility] Comment on above: Order Comment: Speci men Type: BLOOD SPECIMENOrdering Facility: [facility] Address: [address] [place] [address] Performed By: #### 2 432-8, ####[facility] LABCLIA [id number] [place] [address] [place] Sodium [Moles/Vol] 140 mmol/L Normal 136-144 [facility] Comment on above: Order Comment: Speci men Type: BLOOD SPECIMENOrdering Facility: [facility] Address: [address] [place] [address] Performed By: #### 2 8, ####[facility] LABCLIA [id number] [place] [address] [place] Urea nitrogen [Mass/Vol] 18 mg/dL Normal 9-24 [facility] Comment on above: Order Comment: Speci men Type: BLOOD SPECIMENOrdering Facility: [facility] Address: [address] [place] [address] Performed By: #### 2 4323-8, ####[facility] LABCLIA [id number] [place] [id number] [place] Eosinophils/100 WBC Auto (Bl d)on 07-14-2023 Eosinophils/100 WBC (Bld) 2.7 % [facility] Erythrocyte distribution wid th Auto (RBC) [Ratio]on 07-14-2023 Erythrocyte distribution width (RBC) [Ratio] 20.4 % 11.5-15.0 [facility] Hematocrit Auto (Bld) [Volum e fraction]on 07-14-2023 Hematocrit (Bld) [Volume fraction] 40.9 % 39.0-51.0 [facility] Hemoglobin [Mass/volume] in Bloodon 07-14-2023 Hemoglobin (Bld) [Mass/Vol] 10.6 g/dL 13.0-17.0 [facility] Laboratory - Chemistry and C hemistry - challengeon 07-14-2023 Albumin [Mass/Vol] 4.4 g/dL 3.9-4.9 [facility] ALP [Catalytic activity/Vol] 57 U/L 38-113 [facility] ALT [Catalytic activity/Vol] 20 U/L 10-54 [facility] AST [Catalytic activity/Vol] 23 U/L 14-40 [facility] Bilirubin [Mass/Vol] 0.6 mg/dL 0.2-1.3 [facility] Calcium [Mass/Vol] 8.9 mg/dL 8.5-10.2 [facility] Chloride [Moles/Vol] 105 mmol/L 97-105 [facility] CO2 [Moles/Vol] 26 mmol/L 22-30 [facility] Creatinine [Mass/Vol] 0.96 mg/dL 0.73-1.22 [facility] Glucose [Mass/Vol] 88 mg/dL 74-99 [facility] Comment on above: The [place] Diabete s Association (ADA) provides guidance for [...] Standards of Medical Care in Diabetes 2016, [place] Diabetes Association. Diabetes Care. 2016.39(Suppl 1). Magnesium [Mass/Vol] 2.3 mg/dL 1.7-2.3 [facility] Potassium [Moles/Vol] 4.2 mmol/L 3.7-5.1 [facility] Sodium [Moles/Vol] 140 mmol/L 136-144 [facility] Urea nitrogen [Mass/Vol] 18 mg/dL 9-24 [facility] Laboratory - Hematology and Cell countson 07-14-2023 Eosinophils (Bld) [#/Vol] 0.36 10*3/uL <0.46 [facility] Immature granulocytes (Bld) [#/Vol] 0.29 10*3/uL <0.10 [facility] Immature granulocytes/100 WBC (Bld) 2.2 % [facility] Leukocytes [#/volume] correc mary for nucleated erythrocytes in Blood by Automated counon 07-14-2023 WBC corrected for nucl RBC Auto (Bld) [#/Vol] 13.21 k/uL 3.70-11.00 [facility] Lymphocytes Auto (Bld) [#/Vo l]on 07-14-2023 Lymphocytes (Bld) [#/Vol] 1.14 10*3/uL 1.00-4.00 [facility] Lymphocytes/100 WBC Auto (Bl d)on 07-14-2023 Lymphocytes/100 WBC (Bld) 8.6 % [facility] MAGNESIUMon 07-14-2023 Magnesium [Mass/Vol] 2.3 mg/dL 1.7 - 2 .3 mg/dL [facility] MCH Auto (RBC) [Entitic mass ]on 07-14-2023 MCH (RBC) [Entitic mass] 18.8 pg 26.0-34.0 [facility] MCHC Auto (RBC) [Mass/Vol]on 07-14-2023 MCHC (RBC) [Mass/Vol] 25.9 g/dL 30.5-36.0 [facility] MCV Auto (RBC) [Entitic vol] on 07-14-2023 MCV (RBC) [Entitic vol] 72.4 fL 80.0-100.0 [facility] Magnesium SerPl-mCncon 07-13 Magnesium [Mass/Vol] 2.3 mg/dL Normal 1.7-2.3 [facility] Comment on above: Order Comment: Speci men Type: BLOOD SPECIMENOrdering Facility: [facility] Address: [address] [place] [address] Performed By: #### 2 4323-8, 63314-2 ####[facility] LABCLIA [id number] [id number] [address] [place] Magnesium [Mass/Vol]on 07-13 Interpretation and review of laboratory results Normal [facility] Monocytes Auto (Bld) [#/Vol] on 07-14-2023 Monocytes (Bld) [#/Vol] 0.59 10*3/uL <0.87 [facility] Monocytes/100 WBC Auto (Bld) on 07-14-2023 Monocytes/100 WBC (Bld) 4.5 % [facility] Neutrophils Auto (Bld) [#/Vo l]on 07-14-2023 Neutrophils (Bld) [#/Vol] 10.60 10*3/uL 1.45-7.50 [facility] Neutrophils/100 WBC Auto (Bl d)on 07-14-2023 Neutrophils/100 WBC (Bld) 80.3 % [facility] No Panel Informationon 07-13 Estimated GFR (CKD-EPI) 91 mL/min/1.73m??? >=60 [facility] Comment on above: Estimated Glomerular Filtration Rate [...] may not accurately reflect actual GFR. Nucleated RBC Auto (Bld) [#/ Vol]on 07-14-2023 Nucleated RBC (Bld) [#/Vol] 10*3/uL <0.01 [facility] Nucleated erythrocytes [Pres ence] in Blood by Automated counton 07-14-2023 Nucleated RBC Auto Ql (Bld) 0.0 /100{WBC} [facility] Platelet mean volume Auto (B ld) [Entitic vol]on 07-14-2023 Platelet mean volume (Bld) [Entitic vol] 8.7 fL 9.0-12.7 [facility] Platelets Auto (Bld) [#/Vol] on 07-14-2023 Platelets (Bld) [#/Vol] 913 10*3/uL 150-400 [facility] Protein [Mass/volume] in Ser um or Plasmaon 07-14-2023 Protein [Mass/Vol] 6.4 g/dL 6.3-8.0 [facility] RBC Auto (Bld) [#/Vol]on RBC (Bld) [#/Vol] 5.65 10*6/uL 4.20-6.00 [facility] Serum or plasma anion gap de terminationon 07-14-2023 Anion gap [Moles/Vol] 9 mmol/L 9-18 [facility] Basophils Auto (Bld) [#/Vol] on 06-16-2023 Basophils (Bld) [#/Vol] 0.00 10*3/uL <0.11 [facility] Basophils/100 WBC Auto (Bld) on 06-16-2023 Basophils/100 WBC (Bld) 0.0 % [facility] Blood manual differential co mment interpretation narrativeon 06-16-2023 Manual differential comment Van (Bld) [Interp] Manual [facility] CBC W Auto Differential pane l (Bld)on 06-16-2023 Basophils (Bld) [#/Vol] 0.00 10*3/uL Normal <0.11 [facility] Comment on above: Order Comment: Speci men Type: BLOOD SPECIMENOrdering Facility: [facility] Address: [address] [place] [address] Performed By: #### 5 7021-8 ####[facility] [id number] [place] [address] [place] Basophils/100 WBC (Bld) 0.0 % Normal [facility] Comment on above: Order Comment: Speci men Type: BLOOD SPECIMENOrdering Facility: [facility] Address: [address] [place] [address] Performed By: #### 5 7021-8 ####[facility] [id number] [place] [address] [place] Differential cell count method Nom (Bld) Manual Normal [facility] Comment on above: Order Comment: Speci men Type: BLOOD SPECIMENOrdering Facility: [facility] Address: [address] [place] [address] Performed By: #### 5 7021-8 ####[facility] [place] [id number] [place] [address] [place] Eosinophils (Bld) [#/Vol] 0.70 10*3/uL High <0.46 [facility] Comment on above: Order Comment: Speci men Type: BLOOD SPECIMENOrdering Facility: [facility] Address: [address] [place] [address] Performed By: #### 5 7021-8 ####[facility] [place] [id number] [place] [address] [place] Eosinophils/100 WBC (Bld) 5.0 % Normal [facility] Comment on above: Order Comment: Speci men Type: BLOOD SPECIMENOrdering Facility: [facility] Address: [address] [place] [address] Performed By: #### 5 7021-8 ####[facility] [place] [id number] [place] [address] [place] Erythrocyte distribution width (RBC) [Ratio] 20.7 % High 11.5-15.0 [facility] Comment on above: Order Comment: Speci men Type: BLOOD SPECIMENOrdering Facility: [facility] Address: [address] [place] [address] Performed By: #### 5 7021-8 ####[facility] [place] [id number] [place] [address] [place] Hematocrit (Bld) [Volume fraction] 41.8 % Normal 39.0-51.0 [facility] Comment on above: Order Comment: Speci men Type: BLOOD SPECIMENOrdering Facility: [facility] Address: [address] [place] [address] Performed By: #### 5 7021-8 ####[facility] [id number] [place] [address] [place] Hemoglobin (Bld) [Mass/Vol] 10.8 g/dL Low 13.0-17.0 [facility] Comment on above: Order Comment: Speci men Type: BLOOD SPECIMENOrdering Facility: [facility] Address: [address] [place] [address] Performed By: #### 5 7021-8 ####[facility] [place] [id number] [place] [address] [place] Lymphocytes (Bld) [#/Vol] 1.40 10*3/uL Normal 1.00-4.00 [facility] Comment on above: Order Comment: Speci men Type: BLOOD SPECIMENOrdering Facility: [facility] Address: [address] [place] [address] Performed By: #### 5 7021-8 ####[facility] [place] [id number] [place] [address] [place] Lymphocytes/100 WBC (Bld) 10.0 % Normal [facility] Comment on above: Order Comment: Speci men Type: BLOOD SPECIMENOrdering Facility: [facility] Address: [address] [place] [address] Performed By: #### 5 7021-8 ####[facility] [place] [id number] [place] [address] [place] MCH (RBC) [Entitic mass] 18.6 pg Low 26.0-34.0 [facility] Comment on above: Order Comment: Speci men Type: BLOOD SPECIMENOrdering Facility: [facility] Address: [address] [place] [address] Performed By: #### 5 7021-8 ####[facility] [id number] [place] [address] [place] MCHC (RBC) [Mass/Vol] 25.8 g/dL Low 30.5-36.0 [facility] Comment on above: Order Comment: Speci men Type: BLOOD SPECIMENOrdering Facility: [facility] Address: [address] [place] [address] Performed By: #### 5 7021-8 ####[facility] [place] [id number] [place] [address] [place] MCV (RBC) [Entitic vol] 72.1 fL Low 80.0-100.0 [facility] Comment on above: Order Comment: Speci men Type: BLOOD SPECIMENOrdering Facility: [facility] Address: [address] [place] [address] Performed By: #### 5 7021-8 ####[facility] [place] [id number] [place] [address] [place] Monocytes (Bld) [#/Vol] 0.70 10*3/uL Normal <0.87 [facility] Comment on above: Order Comment: Speci men Type: BLOOD SPECIMENOrdering Facility: [facility] Address: [address] [place] [address] Performed By: #### 5 7021-8 ####[facility] [id number] [place] [address] [place] Monocytes/100 WBC (Bld) 5.0 % Normal [facility] Comment on above: Order Comment: Speci men Type: BLOOD SPECIMENOrdering Facility: [facility] Address: [address] [place] [address] Performed By: #### 5 7021-8 ####[facility] [id number] [place] [address] [place] Neutrophils (Bld) [#/Vol] 11.19 10*3/uL High 1.45-7.50 [facility] Comment on above: Order Comment: Speci men Type: BLOOD SPECIMENOrdering Facility: [facility] Address: [address] [place] [address] Performed By: #### 5 7021-8 ####[facility] [id number] [place] [address] [place] Neutrophils/100 WBC (Bld) 80.0 % Normal [facility] Comment on above: Order Comment: Speci men Type: BLOOD SPECIMENOrdering Facility: [facility] Address: [address] [place] [address] Performed By: #### 5 7021-8 ####[facility] [place] [id number] [place] [address] [place] Nucleated RBC (Bld) [#/Vol] 10*3/uL Normal <0.01 [facility] Comment on above: Order Comment: Speci men Type: BLOOD SPECIMENOrdering Facility: [facility] Address: [address] [place] [address] Performed By: #### 5 7021-8 ####[facility] [id number] [place] [address] [place] Nucleated RBC/100 WBC (Bld) [Ratio] 0.0 /100 WBC Normal [facility] Comment on above: Order Comment: Speci men Type: BLOOD SPECIMENOrdering Facility: [facility] Address: [address] [place] [address] Performed By: #### 5 7021-8 ####[facility] [id number] [place] [address] [place] Ovalocytes LM Ql (Bld) Few Normal [facility] Comment on above: Order Comment: Speci men Type: BLOOD SPECIMENOrdering Facility: [facility] Address: [address] [place] [address] Performed By: #### 5 7021-8 ####[facility] [id number] [place] [address] [place] Platelet mean volume (Bld) [Entitic vol] 8.6 fL Low 9.0-12.7 [facility] Comment on above: Order Comment: Speci men Type: BLOOD SPECIMENOrdering Facility: [facility] Address: [address] [place] [address] Performed By: #### 5 7021-8 ####[facility] [id number] [place] [address] [place] Platelets (Bld) [#/Vol] 894 10*3/uL High 150-400 [facility] Comment on above: Order Comment: Speci men Type: BLOOD SPECIMENOrdering Facility: [facility] Address: [address] [place] [address] Performed By: #### 5 7021-8 ####[facility] [place] [id number] [place] [address] [place] Platelets Estimate (Bld) [#/Vol] Increased Normal [facility] Comment on above: Order Comment: Speci men Type: BLOOD SPECIMENOrdering Facility: [facility] Address: [address] [place] [address] Performed By: #### 5 7021-8 ####[facility] [id number] [place] [address] [place] Polychromasia LM Ql (Bld) Slight Normal [facility] Comment on above: Order Comment: Speci men Type: BLOOD SPECIMENOrdering Facility: [facility] Address: [address] [place] [address] Performed By: #### 5 7021-8 ####[facility] [id number] [place] [address] [place] RBC (Bld) [#/Vol] 5.80 10*6/uL Normal 4.20-6.00 [facility] Comment on above: Order Comment: Speci men Type: BLOOD SPECIMENOrdering Facility: [facility] Address: [address] [place] [address] Performed By: #### 5 7021-8 ####[facility] [id number] [place] [address] [place] RBC FRAGMENTS Few Abnormal None Seen [facility] Comment on above: Order Comment: Speci men Type: BLOOD SPECIMENOrdering Facility: [facility] Address: [address] [place] [address] Performed By: #### 5 7021-8 ####[facility] [place] [id number] [place] [address] [place] RED CELL MORPH Reviewed: see results of individual morphologies Normal [facility] Comment on above: Order Comment: Speci men Type: BLOOD SPECIMENOrdering Facility: [facility] Address: [address] [place] [address] Performed By: #### 5 7021-8 ####[facility] [id number] [place] [address] [place] Target cells LM Ql (Bld) Few Normal [facility] Comment on above: Order Comment: Speci men Type: BLOOD SPECIMENOrdering Facility: [facility] Address: [address] [place] [address] Performed By: #### 5 7021-8 ####[facility] [place] [id number] [place] [address] [place] WBC (Bld) [#/Vol] 13.99 10*3/uL High 3.70-11.00 [facility] Comment on above: Order Comment: Speci men Type: BLOOD SPECIMENOrdering Facility: [facility] Address: [address] [place] [address] Performed By: #### 5 7021-8 ####[facility] [id number] [address] OF [facility] CNNURSEon 06-16-2023 CNNURSE Nurse Visit (VENKAT TERRELL) ANIL LEOS ([id number]) 1965 M Date Time Provider Department 06/16/23 9:00 AM HANNAH LYONS During your visit today, we recorded the following information about you: Hannah Lyons, RN 06/17/2023 9:18 AM Signed Title:An Extension Study to Evaluate the Long-term Safety of [place] (PTG-300) in Subjects with Polycythemia Vera Consent expiration 04/13/2024 Screening date: 05/19/2023 Subject#: [id number] PTG 1Z21: Week 1 02/26/2021. EOT 05/19/2023. Rolled over to PTG 1923 on 05/19/2023. Week 0: 05/19/2023 PTG-300 [...] 0 Enrique RM et alJ Clin Oncol 2012;30:2355-3508. PAST MEDICAL HISTORY Diagnosis Date Status/Active Issues [...] cokes. Denies recreational drug use. 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 Normal [facility] CNOVSPon 06-16-2023 CNOVSP Visit (SP) Office (HEMAMN) ANIL LEOS ([id number]) 1965 M Date Time Provider Department 06/16/23 9:00 AM ANNIE ABREU During your visit today, we recorded the following information about you: Temperature Pulse Respiration Blood pressure 97.2 degrees 67/minute 18/minute 136/70 Weight 83.5 kg Hannah Berrios OCCA 06/16/2023 8:56 AM Signed Additional intake questions: Has the patient had fever, nausea, vomiting, diarrhea, constipation, fatigue for > 1 week? No Does the patient have a decreased appetite? No Does patient want to see a Retail Banker? No (yes to any of above refer patient to schedulers for dietitian appointment) ) Does patient have any new or increased numbness or tingling of extremities? No Is patient interested in fertility information? No Does patient need any prescription refills? No Does patient have an advanced directive in place? No Electronically Signed By: TANVI Andujar Kristie, APRN.WIRER PASSENGER CAR 06/16/2023 10:38 AM Signed Elements have been copied from prior note on 05/19/2023 - The elements have been reviewed and updated where appropriate, and all reflect my current assessment and decision-making from today, 06/16/2023. [facility] Clinical Note Assessment and Plan In summary: Mr. Leso is a 58 year old gentleman with [...] dose of 60 mg weekly on prior PT 1Z21 study; this was due to reformulation [...] which included preparing to see the patient, [id number] patient care, obtaining and/or reviewing separately obtained history, performing a medically appropriate examination, counseling and educating the patient/family/careg iver, ordering medications, tests, or procedures, communicating with other HCPs (not separately reported), independently interpreting results (not separately reported), and communicating results to the patient/family/careg iver. Signed: Annie Abreu APRN.WIRER PASSENGER CAR Visit Details Interval History Mr. Leos presents [...] 0 Weight loss (or gain) in past (more content not included)... Normal [facility] Comprehensive metabolic 2000 panelon 06-16-2023 Albumin [Mass/Vol] 4.4 g/dL Normal 3.9-4.9 [facility] Comment on above: Order Comment: Speci men Type: BLOOD SPECIMENOrdering Facility: [facility] Address: [address] [place] [address] Performed By: #### 2 4323-8 ####[facility] [id number] [place] [address] [place] ALP [Catalytic activity/Vol] 57 U/L Normal 38-113 [facility] Comment on above: Order Comment: Speci men Type: BLOOD SPECIMENOrdering Facility: [facility] Address: [address] [place] [address] Performed By: #### 2 4323-8 ####[facility] [id number] [place] [address] [place] ALT [Catalytic activity/Vol] 17 U/L Normal 10-54 [facility] Comment on above: Order Comment: Speci men Type: BLOOD SPECIMENOrdering Facility: [facility] Address: [address] [place] [address] Performed By: #### 2 4323-8 ####[facility] [id number] [place] [address] [place] Anion gap [Moles/Vol] 8 mmol/L Low 9-18 [facility] Comment on above: Order Comment: Speci men Type: BLOOD SPECIMENOrdering Facility: [facility] Address: [address] [place] [address] Performed By: #### 2 4323-8 ####[facility] [id number] [place] [address] [place] AST [Catalytic activity/Vol] 19 U/L Normal 14-40 [facility] Comment on above: Order Comment: Speci men Type: BLOOD SPECIMENOrdering Facility: [facility] Address: [address] [place] [address] Performed By: #### 2 4323-8 ####[facility] [id number] [place] [address] [place] Bilirubin [Mass/Vol] 0.6 mg/dL Normal 0.2-1.3 [facility] Comment on above: Order Comment: Speci men Type: BLOOD SPECIMENOrdering Facility: [facility] Address: [address] [place] [address] Performed By: #### 2 4323-8 ####[facility] [id number] [place] [address] [place] Calcium [Mass/Vol] 8.9 mg/dL Normal 8.5-10.2 [facility] Comment on above: Order Comment: Speci men Type: BLOOD SPECIMENOrdering Facility: [facility] Address: [address] [place] [address] Performed By: #### 2 4323-8 ####[facility] [id number] [place] [address] [place] Chloride [Moles/Vol] 105 mmol/L Normal 97-105 [facility] Comment on above: Order Comment: Speci men Type: BLOOD SPECIMENOrdering Facility: [facility] Address: [address] [place] [address] Performed By: #### 2 4323-8 ####[facility] [id number] [place] [address] [place] CO2 [Moles/Vol] 27 mmol/L Normal 22-30 [facility] Comment on above: Order Comment: Speci men Type: BLOOD SPECIMENOrdering Facility: [facility] Address: [address] [place] [address] Performed By: #### 2 4323-8 ####[facility] [id number] [place] [address] [place] Creatinine [Mass/Vol] 1.03 mg/dL Normal 0.73-1.22 [facility] Comment on above: Order Comment: Speci men Type: BLOOD SPECIMENOrdering Facility: [facility] Address: [address] [place] [address] Performed By: #### 2 4323-8 ####[facility] [id number] [address] Creatinine and Glomerular filtration rate.predicted panel (S/P/Bld) 84 mL/min/1.73m??? Normal >=60 [facility] Comment on above: Order Comment: Speci men Type: BLOOD SPECIMENOrdering Facility: [facility] Address: [address] [place] [address] Result Comment: Romi mated Glomerular Filtration Rate [...] By: #### 2 4323-8 ####[facility] [id number] [place] [address] [place] Glucose [Mass/Vol] 94 mg/dL Normal 74-99 [facility] Comment on above: Order Comment: Speci men Type: BLOOD SPECIMENOrdering Facility: [facility] Address: [address] [place] [address] Result Comment: The [place] Diabetes Association (ADA) provides guidance for cutoff values for fasting glucose and random glucose. The ADA defines fasting as no caloric intake for at least 8 hours. Fasting plasma glucose results between 100 to 125 mg/dL indicate increased risk for diabetes (prediabetes). Fasting plasma glucose results greater than or equal to 126 mg/dL meet the criteria for diagnosis of diabetes. In the absence of unequivocal hyperglycemia, results should be confirmed by repeat testing. In a patient with classic symptoms of hyperglycemia or hyperglycemic crisis, random plasma glucose results greater than or equal to 200 mg/dL meet the criteria for diagnosis of diabetes. Reference: Standards of Medical Care in Diabetes 2016, [place] Diabetes Association. Diabetes Care. 2016.39(Suppl 1). Performed By: #### 2 4323-8 ####[facility] [id number] [place] [address] [place] Potassium [Moles/Vol] 4.8 mmol/L Normal 3.7-5.1 [facility] Comment on above: Order Comment: Speci men Type: BLOOD SPECIMENOrdering Facility: [facility] Address: [address] [place] [address] Performed By: #### 2 4323-8 ####[facility] [id number] [place] [address] [place] Protein [Mass/Vol] 6.6 g/dL Normal 6.3-8.0 [facility] Comment on above: Order Comment: Speci men Type: BLOOD SPECIMENOrdering Facility: [facility] Address: [address] [place] [address] Performed By: #### 2 4323-8 ####[facility] [id number] [place] [address] [place] Sodium [Moles/Vol] 140 mmol/L Normal 136-144 [facility] Comment on above: Order Comment: Speci men Type: BLOOD SPECIMENOrdering Facility: [facility] Address: [address] [place] [address] Performed By: #### 2 4323-8 ####[facility] [id number] [place] [address] [place] Urea nitrogen [Mass/Vol] 21 mg/dL Normal 9-24 [facility] Comment on above: Order Comment: Speci men Type: BLOOD SPECIMENOrdering Facility: [facility] Address: [address] [place] [address] Performed By: #### 2 4323-8 ####[facility] [id number] [place] [address] [place] Eosinophils/100 WBC Auto (Bl d)on 06-16-2023 Eosinophils/100 WBC (Bld) 5.0 % [facility] Erythrocyte distribution wid th Auto (RBC) [Ratio]on 06-16-2023 Erythrocyte distribution width (RBC) [Ratio] 20.7 % 11.5-15.0 [facility] Hematocrit Auto (Bld) [Volum e fraction]on 06-16-2023 Hematocrit (Bld) [Volume fraction] 41.8 % 39.0-51.0 [facility] Hemoglobin [Mass/volume] in Bloodon 06-16-2023 Hemoglobin (Bld) [Mass/Vol] 10.8 g/dL 13.0-17.0 [facility] Laboratory - Chemistry and C hemistry - challengeon 06-16-2023 Albumin [Mass/Vol] 4.4 g/dL 3.9-4.9 [facility] ALP [Catalytic activity/Vol] 57 U/L 38-113 [facility] ALT [Catalytic activity/Vol] 17 U/L 10-54 [facility] AST [Catalytic activity/Vol] 19 U/L 14-40 [facility] Bilirubin [Mass/Vol] 0.6 mg/dL 0.2-1.3 [facility] Calcium [Mass/Vol] 8.9 mg/dL 8.5-10.2 [facility] Chloride [Moles/Vol] 105 mmol/L 97-105 [facility] CO2 [Moles/Vol] 27 mmol/L 22-30 [facility] Creatinine [Mass/Vol] 1.03 mg/dL 0.73-1.22 [facility] Glucose [Mass/Vol] 94 mg/dL 74-99 [facility] Comment on above: The [place] Diabete s Association (ADA) provides guidance for [...] Standards of Medical Care in Diabetes 2016, [place] Diabetes Association. Diabetes Care. 2016.39(Suppl 1). Potassium [Moles/Vol] 4.8 mmol/L 3.7-5.1 [facility] Sodium [Moles/Vol] 140 mmol/L 136-144 [facility] Urea nitrogen [Mass/Vol] 21 mg/dL 9-24 [facility] Laboratory - Hematology and Cell countson 06-16-2023 Eosinophils (Bld) [#/Vol] 0.70 10*3/uL <0.46 [facility] Leukocytes [#/volume] correc mary for nucleated erythrocytes in Blood by Automated counon 06-16-2023 WBC corrected for nucl RBC Auto (Bld) [#/Vol] 13.99 k/uL 3.70-11.00 [facility] Lymphocytes Auto (Bld) [#/Vo l]on 06-16-2023 Lymphocytes (Bld) [#/Vol] 1.40 10*3/uL 1.00-4.00 [facility] Lymphocytes/100 WBC Auto (Bl d)on 06-16-2023 Lymphocytes/100 WBC (Bld) 10.0 % [facility] MCH Auto (RBC) [Entitic mass ]on 06-16-2023 MCH (RBC) [Entitic mass] 18.6 pg 26.0-34.0 [facility] MCHC Auto (RBC) [Mass/Vol]on 06-16-2023 MCHC (RBC) [Mass/Vol] 25.8 g/dL 30.5-36.0 [facility] MCV Auto (RBC) [Entitic vol] on 06-16-2023 MCV (RBC) [Entitic vol] 72.1 fL 80.0-100.0 [facility] Monocytes Auto (Bld) [#/Vol] on 06-16-2023 Monocytes (Bld) [#/Vol] 0.70 10*3/uL <0.87 [facility] Monocytes/100 WBC Auto (Bld) on 06-16-2023 Monocytes/100 WBC (Bld) 5.0 % [facility] Neutrophils Auto (Bld) [#/Vo l]on 06-16-2023 Neutrophils (Bld) [#/Vol] 11.19 10*3/uL 1.45-7.50 [facility] Neutrophils/100 WBC Auto (Bl d)on 06-16-2023 Neutrophils/100 WBC (Bld) 80.0 % [facility] No Panel Informationon 06-15 Estimated GFR (CKD-EPI) 84 mL/min/1.73m??? >=60 [facility] Comment on above: Estimated Glomerular Filtration Rate [...] Morphology Reviewed: see results of individual morphologies [facility] RBC Fragments Few None Seen [facility] Nucleated RBC Auto (Bld) [#/ Vol]on 06-16-2023 Nucleated RBC (Bld) [#/Vol] 10*3/uL <0.01 [facility] Nucleated erythrocytes [Pres ence] in Blood by Automated counton 06-16-2023 Nucleated RBC Auto Ql (Bld) 0.0 /100{WBC} [facility] Ovalocyte detectionon 2023 Ovalocytes LM Ql (Bld) Few [facility] Platelet adequacy [Presence] in Blood by Light microscopyon 06-16-2023 Platelets LM Ql (Bld) Increased [facility] Platelet mean volume Auto (B ld) [Entitic vol]on 06-16-2023 Platelet mean volume (Bld) [Entitic vol] 8.6 fL 9.0-12.7 [facility] Platelets Auto (Bld) [#/Vol] on 06-16-2023 Platelets (Bld) [#/Vol] 894 10*3/uL 150-400 [facility] Polychromasia [Presence] in Blood by Light microscopyon 06-16-2023 Polychromasia LM Ql (Bld) Slight [facility] Protein [Mass/volume] in Ser um or Plasmaon 06-16-2023 Protein [Mass/Vol] 6.6 g/dL 6.3-8.0 [facility] RBC Auto (Bld) [#/Vol]on RBC (Bld) [#/Vol] 5.80 10*6/uL 4.20-6.00 [facility] Serum or plasma anion gap de terminationon 06-16-2023 Anion gap [Moles/Vol] 8 mmol/L 9-18 [facility] Target cellson 06-16-2023 Target cells LM Ql (Bld) Few [facility] Basophils Auto (Bld) [#/Vol] on 05-19-2023 Basophils (Bld) [#/Vol] 0.16 10*3/uL <0.11 [facility] Basophils/100 WBC Auto (Bld) on 05-19-2023 Basophils/100 WBC (Bld) 1.4 % [facility] Blood manual differential co mment interpretation narrativeon 05-19-2023 Manual differential comment Van (Bld) [Interp] Auto [facility] CBC W Auto Differential pane l (Bld)on 05-19-2023 Basophils (Bld) [#/Vol] 0.16 10*3/uL High <0.11 [facility] Comment on above: Order Comment: Speci men Type: BLOOD SPECIMENOrdering Facility: [facility] Address: [address] [place], [place] [id number] Performed By: #### 5 7021-8 ####[facility] [id number] [place] [address] [place] Basophils/100 WBC (Bld) 1.4 % Normal [facility] Comment on above: Order Comment: Speci men Type: BLOOD SPECIMENOrdering Facility: [facility] Address: [address] [place] [address] Performed By: #### 5 7021-8 ####[facility] [id number] [place] [address] [place] Differential cell count method Nom (Bld) Auto Normal [facility] Comment on above: Order Comment: Speci men Type: BLOOD SPECIMENOrdering Facility: [facility] Address: [address] [place] [address] Performed By: #### 5 7021-8 ####[facility] [id number] [place] [address] [place] Eosinophils (Bld) [#/Vol] 0.43 10*3/uL Normal <0.46 [facility] Comment on above: Order Comment: Speci men Type: BLOOD SPECIMENOrdering Facility: [facility] Address: [address] [place] [address] Performed By: #### 5 7021-8 ####[facility] [id number] [place] [address] [place] Eosinophils/100 WBC (Bld) 3.8 % Normal [facility] Comment on above: Order Comment: Speci men Type: BLOOD SPECIMENOrdering Facility: [facility] Address: [address] [place] [address] Performed By: #### 5 7021-8 ####[facility] [id number] [place] [address] [place] Erythrocyte distribution width (RBC) [Ratio] 20.0 % High 11.5-15.0 [facility] Comment on above: Order Comment: Speci men Type: BLOOD SPECIMENOrdering Facility: [facility] Address: [address] [place] [address] Performed By: #### 5 7021-8 ####[facility] [id number] [place] [address] [place] Hematocrit (Bld) [Volume fraction] 38.5 % Low 39.0-51.0 [facility] Comment on above: Order Comment: Speci men Type: BLOOD SPECIMENOrdering Facility: [facility] Address: [address] [place] [address] Performed By: #### 5 7021-8 ####[facility] [id number] [place] [address] [place] Hemoglobin (Bld) [Mass/Vol] 10.2 g/dL Low 13.0-17.0 [facility] Comment on above: Order Comment: Speci men Type: BLOOD SPECIMENOrdering Facility: [facility] Address: [address] [place] [address] Performed By: #### 5 7021-8 ####[facility] [id number] [place] [address] [place] Immature granulocytes (Bld) [#/Vol] 0.10 10*3/uL High <0.10 [facility] Comment on above: Order Comment: Speci men Type: BLOOD SPECIMENOrdering Facility: [facility] Address: [address] [place] [address] Performed By: #### 5 7021-8 ####[facility] [id number] [place] [address] [place] Immature granulocytes/100 WBC (Bld) 0.9 % Normal [facility] Comment on above: Order Comment: Speci men Type: BLOOD SPECIMENOrdering Facility: [facility] Address: [address] [place] [address] Performed By: #### 5 7021-8 ####[facility] [id number] [place] [address] [place] Lymphocytes (Bld) [#/Vol] 0.94 10*3/uL Low 1.00-4.00 [facility] Comment on above: Order Comment: Speci men Type: BLOOD SPECIMENOrdering Facility: [facility] Address: [address] [place] [address] Performed By: #### 5 7021-8 ####[facility] [id number] [place] [address] [place] Lymphocytes/100 WBC (Bld) 8.2 % Normal [facility] Comment on above: Order Comment: Speci men Type: BLOOD SPECIMENOrdering Facility: [facility] Address: [address] [place] [address] Performed By: #### 5 7021-8 ####[facility] [id number] [place] [address] [place] MCH (RBC) [Entitic mass] 18.6 pg Low 26.0-34.0 [facility] Comment on above: Order Comment: Speci men Type: BLOOD SPECIMENOrdering Facility: [facility] Address: [address] [place] [address] Performed By: #### 5 7021-8 ####[facility] [id number] [place] [address] [place] MCHC (RBC) [Mass/Vol] 26.5 g/dL Low 30.5-36.0 [facility] Comment on above: Order Comment: Speci men Type: BLOOD SPECIMENOrdering Facility: [facility] Address: [address] [place] [address] Performed By: #### 5 7021-8 ####[facility] [id number] [place] [address] [place] MCV (RBC) [Entitic vol] 70.4 fL Low 80.0-100.0 [facility] Comment on above: Order Comment: Speci men Type: BLOOD SPECIMENOrdering Facility: [facility] Address: [address] [place] [address] Performed By: #### 5 7021-8 ####[facility] [id number] [place] [address] [place] Monocytes (Bld) [#/Vol] 0.49 10*3/uL Normal <0.87 [facility] Comment on above: Order Comment: Speci men Type: BLOOD SPECIMENOrdering Facility: [facility] Address: [address] [place] [address] Performed By: #### 5 7021-8 ####[facility] [id number] [place] [address] [place] Monocytes/100 WBC (Bld) 4.3 % Normal [facility] Comment on above: Order Comment: Speci men Type: BLOOD SPECIMENOrdering Facility: [facility] Address: [address] [place] [address] Performed By: #### 5 7021-8 ####[facility] [id number] [place] [address] [place] Neutrophils (Bld) [#/Vol] 9.28 10*3/uL High 1.45-7.50 [facility] Comment on above: Order Comment: Speci men Type: BLOOD SPECIMENOrdering Facility: [facility] Address: [address] [place] [address] Performed By: #### 5 7021-8 ####[facility] [id number] [place] [address] [place] Neutrophils/100 WBC (Bld) 81.4 % Normal [facility] Comment on above: Order Comment: Speci men Type: BLOOD SPECIMENOrdering Facility: [facility] Address: [address] [place] [address] Performed By: #### 5 7021-8 ####[facility] [id number] [place] [address] [place] Nucleated RBC (Bld) [#/Vol] 10*3/uL Normal <0.01 [facility] Comment on above: Order Comment: Speci men Type: BLOOD SPECIMENOrdering Facility: [facility] Address: [address] [place] [address] Performed By: #### 5 7021-8 ####[facility] [id number] [place] [address] [place] Nucleated RBC/100 WBC (Bld) [Ratio] 0.0 /100 WBC Normal [facility] Comment on above: Order Comment: Speci men Type: BLOOD SPECIMENOrdering Facility: [facility] Address: [address] [place] [address] Performed By: #### 5 7021-8 ####[facility] [id number] [place] [address] [place] Platelet mean volume (Bld) [Entitic vol] 8.6 fL Low 9.0-12.7 [facility] Comment on above: Order Comment: Speci men Type: BLOOD SPECIMENOrdering Facility: [facility] Address: [address] [place] [address] Performed By: #### 5 7021-8 ####[facility] [id number] [place] [address] [place] Platelets (Bld) [#/Vol] 925 10*3/uL High 150-400 [facility] Comment on above: Order Comment: Speci men Type: BLOOD SPECIMENOrdering Facility: [facility] Address: [address] [place] [address] Performed By: #### 5 7021-8 ####[facility] [id number] [place] [address] [place] RBC (Bld) [#/Vol] 5.47 10*6/uL Normal 4.20-6.00 [facility] Comment on above: Order Comment: Speci men Type: BLOOD SPECIMENOrdering Facility: [facility] Address: [address] [place] [address] Performed By: #### 5 7021-8 ####[facility] [id number] [place] [address] [place] WBC (Bld) [#/Vol] 11.40 10*3/uL High 3.70-11.00 [facility] Comment on above: Order Comment: Speci men Type: BLOOD SPECIMENOrdering Facility: [facility] Address: [address] [place] [address] Performed By: #### 5 7021-8 ####[facility] [id number] [address] OF [facility] CNNURSEon 05-19-2023 CNNURSE Nurse Visit (VENKAT TERRELL) ANIL LEOS ([id number]) 1965 M Date Time Provider Department 05/19/23 10:00 AM HANNAH LYONS During your visit today, we recorded the following information about you: Height 1.74 m Hannah Lyons, RN 05/19/2023 5:05 PM Signed Title:A Phase 2 Study of the Hepcidin Mimetic PTG-300 in Patients with Phlebotomy-Requiring Polycythemia Vera Consent expiration 05/29/2021 Screening date: 02/12/2021 Screening #: [id number] Part 1 week 1: 02/26/2021 PTG-300 20 [...] 0 Enrique RM et alJ Clin Oncol 2012;30:8604-6322. PAST MEDICAL HISTORY Diagnosis Date Status/Active Issues [...] cokes. Denies recreational drug use. 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 Normal [facility] Nurse Visit (VENKAT TERRELL) ANIL LEOS ([id number]) 1965 M Date Time Provider Department 05/19/23 8:30 AM HANNAH LYONS During your visit today, we recorded the following information about you: Hannah Lyons RN 05/19/2023 12:35 PM Signed Title: An Extension Study to Evaluate the [...] Patient states understanding of all instructions provided. Referring Provider: BRYCE VENTURA [[id number]] Allergies As of Date: 05/19/2023 Noted Allergy Reaction BACTRIM (SULFAMETHOXAZOLE-TR IMETH*10/31/2020 2 - Rash Date Reviewed: 05/19/2023 Reviewed by: Annie Abreu APRN.WIRER PASSENGER CAR - Fully Assessed Reason for Visit: Research [293] Cmt: PTG 19224-180 Pt signed informed consent Primary Visit Diagnosis:Polycythem ia vera (HCC) [D45] Prescriptions as of 05/19/2023 - efinaconazole 10 % alfa Apply 1 application to affected area once daily. - ruxolitinib phosphate (OPZELURA TOPICAL) Apply to affected area. - KRILL OIL ORAL Take by mouth twice daily. - multivitamin with minerals (ONE-A-DAY 50 PLUS ORAL) Take by mouth once daily. - aspirin 81 mg cap Take by mouth once daily. Facility-Administere d Medications as of 05/19/2023 - INV RUSFERTIDE 45 mg INJECTION (IRB PTG 1923/24-180) Problem List As Of Date 05/19/2023 Noted Resolved Polycythemia vera (HCC) [D45] 12/16/2020 Encounter Status:Closed by HANNAH LYONS on 05/19/23 [facility] CNOVSPon 05-19-2023 CNOVSP Visit (SP) Office (HEMAMN) ANIL LEOS ([id number]) 1965 M Date Time Provider Department 05/19/23 10:00 AM ANNIE ABREU During your visit today, we recorded the following information about you: Temperature Pulse Respiration Blood pressure 97.7 degrees 74/minute 18/minute 125/66 Weight 83.8 kg Annie Abreu APRN.WIRER PASSENGER CAR 05/19/2023 11:30 AM Signed Elements copied from note dated 03/24/2023 have been reviewed and updated where appropriate, and all reflect current assessment and medical decision making during today's encounter, 05/19/2023. [facility] Clinical Note Assessment and Plan In summary: [...] 1Z21 but d/t Rusferide reformulation w/ PTG 1922, will likely start with 45 mg weekly [...] Was advised by PCP in the summer (2023) to stop his amlodipine d/t stable BPs - BP remains well-controlled off of medication. Continue follow-up with PCP. RTC in 4 weeks per study protocol. Patient aware to contact research team with any questions or concerns. I spent a total of 29 minutes on the date of the service which included preparing to see the patient, [id number] patient care, obtaining and/or reviewing separately obtained history, performing a medically appropriate examination, counseling and educating the patient/family/careg iver, ordering medications, tests, or procedures, communicating with other HCPs (not separately reported), independently interpreting results (not separately reported), and communicating results to the patient/family/careg iver. Signed: Annie Abreu APRN.WIRER PASSENGER CAR Visit Details Interval History Mr. Leos presents [...] 0 Enrique WILLINGHAM et alJ Clin Oncol 2012;30:6341-9921. Review of Systems Reviewed and reported in HPI/Interval history above Adjunct Histories PAST MEDICAL HISTORY Sarah (more content not included)... Normal [facility] CT ABDOMEN WO IVCONon 2023 CT ABDOMEN WO IVCON * * *Final Report* * * DATE OF EXAM: May 19 2023 12:04PM CAC 0534 - CT ABDOMEN WO IVCON / PROCEDURE REASON: Polycythemia vera (HCC) * * * * Physician Interpretation * * * * EXAMINATION: CT ABDOMEN WITHOUT IV CONTRAST CLINICAL HISTORY: Polycythemia vera. TECHNIQUE: Non-IV contrast imaging of the abdomen was performed using standard technique, scanning from just above the dome of the diaphragm to the iliac crest. Unenhanced imaging is limited for the evaluation of some intra-abdominal pathology. MQ: CTAbdWO_3 Contrast: IV: None : ml of CT Radiation dose: Integrated Dose-length product (DLP) for this visit = 377 mGy*cm. CT Dose Reduction Employed: Automated exposure control (AEC) COMPARISON: CT abdomen 12/02/2022 RESULT: Liver: Unremarkable. Biliary: The gallbladder is unremarkable. Spleen: Splenomegaly, 15.3 cm in craniocaudal length (4:59), previously 14.9 cm measured similarly. No focal finding. Pancreas: Unremarkable. Adrenals: No mass. Kidneys: No calculus or hydronephrosis. 2.3 cm right upper pole renal cyst. Left kidney displaced inferomedially by the spleen.. GI Tract: No bowel dilation. Few colonic diverticula. Lymph Nodes: No lymphadenopathy. Mesentery/peritoneum : No ascites. Retroperitoneum: No mass. Vasculature: No abdominal aortic or iliac artery aneurysm. Bones/Soft Tissues: No acute abnormality. Lower thorax: Right lower lobe calcified granuloma. Fireman (topogram) images: No additional findings. IMPRESSION: Splenomegaly, slightly increased from 12/02/2022 CT. Mammography Technician: CHARLOTTE Transcribe Date/Time: May 19 2023 12:21P Dictated by : ROSA RODARTE MD This examination was interpreted and the report reviewed and electronically signed by: ROSA RODARTE MD on May 19 2023 12:26PM EST [id number] CN Normal [facility] CT Abdomen WO contraston [facility] Comprehensive metabolic 2000 panelon 05-19-2023 Albumin [Mass/Vol] 4.4 g/dL Normal 3.9-4.9 [facility] Comment on above: Order Comment: Speci men Type: BLOOD SPECIMENOrdering Facility: [facility] Address: [address] [place] [address] Performed By: #### 2 4323-8 ####[facility] [id number] [place] [address] [place] ALP [Catalytic activity/Vol] 55 U/L Normal 38-113 [facility] Comment on above: Order Comment: Speci men Type: BLOOD SPECIMENOrdering Facility: [facility] Address: [address] [place] [address] Performed By: #### 2 4323-8 ####[facility] [id number] [place] [address] [place] ALT [Catalytic activity/Vol] 18 U/L Normal 10-54 [facility] Comment on above: Order Comment: Speci men Type: BLOOD SPECIMENOrdering Facility: [facility] Address: [address] [place] [address] Performed By: #### 2 4323-8 ####[facility] [place] [id number] [place] [address] [place] Anion gap [Moles/Vol] 9 mmol/L Normal 9-18 [facility] Comment on above: Order Comment: Speci men Type: BLOOD SPECIMENOrdering Facility: [facility] Address: [address] [place] [address] Performed By: #### 2 4323-8 ####[facility] [place] [id number] [place] [address] [place] AST [Catalytic activity/Vol] 24 U/L Normal 14-40 [facility] Comment on above: Order Comment: Speci men Type: BLOOD SPECIMENOrdering Facility: [facility] Address: [address] [place] [address] Performed By: #### 2 4323-8 ####[facility] [place] [id number] [place] [address] [place] Bilirubin [Mass/Vol] 0.4 mg/dL Normal 0.2-1.3 [facility] Comment on above: Order Comment: Speci men Type: BLOOD SPECIMENOrdering Facility: [facility] Address: [address] [place] [address] Performed By: #### 2 4323-8 ####[facility] [place] [id number] [place] [address] [place] Calcium [Mass/Vol] 9.0 mg/dL Normal 8.5-10.2 [facility] Comment on above: Order Comment: Speci men Type: BLOOD SPECIMENOrdering Facility: [facility] Address: [address] [place] [address] Performed By: #### 2 4323-8 ####[facility] [id number] [place] [address] [place] Chloride [Moles/Vol] 105 mmol/L Normal 97-105 [facility] Comment on above: Order Comment: Speci men Type: BLOOD SPECIMENOrdering Facility: [facility] Address: [address] [place] [address] Performed By: #### 2 4323-8 ####[facility] [id number] [place] [address] [place] CO2 [Moles/Vol] 26 mmol/L Normal 22-30 [facility] Comment on above: Order Comment: Speci men Type: BLOOD SPECIMENOrdering Facility: [facility] Address: [address] [place] [address] Performed By: #### 2 4323-8 ####[facility] [id number] [place] [address] [place] Creatinine [Mass/Vol] 0.98 mg/dL Normal 0.73-1.22 [facility] Comment on above: Order Comment: Speci men Type: BLOOD SPECIMENOrdering Facility: [facility] Address: [address] [place], [place] [id number] Performed By: #### 2 4323-8 ####[facility] [id number] [place], [place] [id number] [place] Creatinine and Glomerular filtration rate.predicted panel (S/P/Bld) 89 mL/min/1.73m??? Normal >=60 [facility] Comment on above: Order Comment: Abhishek flores Type: BLOOD SPECIMENOrdering Facility: [facility] Address: [address] [place] [address] Result Comment: Romi mated Glomerular Filtration Rate [...] Performed By: #### 2 4323-8 ####[facility] [id number] [place] [address] [place] Glucose [Mass/Vol] 92 mg/dL Normal 74-99 [facility] Comment on above: Order Comment: Abhishek flores Type: BLOOD SPECIMENOrdering Facility: [facility] Address: [address] [place] [address] Result Comment: The [place] Diabetes Association (ADA) provides guidance for cutoff values for fasting glucose and random glucose. The ADA defines fasting as no caloric intake for at least 8 hours. Fasting plasma glucose results between 100 to 125 mg/dL indicate increased risk for diabetes (prediabetes). Fasting plasma glucose results greater than or equal to 126 mg/dL meet the criteria for diagnosis of diabetes. In the absence of unequivocal hyperglycemia, results should be confirmed by repeat testing. In a patient with classic symptoms of hyperglycemia or hyperglycemic crisis, random plasma glucose results greater than or equal to 200 mg/dL meet the criteria for diagnosis of diabetes. Reference: Standards of Medical Care in Diabetes 2016, [place] Diabetes Association. Diabetes Care. 2016.39(Suppl 1). Performed By: #### 2 4323-8 ####[facility] [id number] [place] [address] [place] Potassium [Moles/Vol] 4.5 mmol/L Normal 3.7-5.1 [facility] Comment on above: Order Comment: Speci men Type: BLOOD SPECIMENOrdering Facility: [facility] Address: [address] [place] [address] Performed By: #### 2 4323-8 ####[facility] [id number] [place] [address] [place] Protein [Mass/Vol] 6.7 g/dL Normal 6.3-8.0 [facility] Comment on above: Order Comment: Speci men Type: BLOOD SPECIMENOrdering Facility: [facility] Address: [address] [place] [address] Performed By: #### 2 4323-8 ####[facility] [id number] [place] [address] [place] Sodium [Moles/Vol] 140 mmol/L Normal 136-144 [facility] Comment on above: Order Comment: Speci men Type: BLOOD SPECIMENOrdering Facility: [facility] Address: [address] [place] [address] Performed By: #### 2 4323-8 ####[facility] [place] [id number] [place] [address] [place] Urea nitrogen [Mass/Vol] 18 mg/dL Normal 9-24 [facility] Comment on above: Order Comment: Speci men Type: BLOOD SPECIMENOrdering Facility: [facility] Address: [address] [place] [address] Performed By: #### 2 4323-8 ####[facility] [id number] [place] [address] [place] [id number] 05-19-2023 ECG01 Ventricular Rate : 76 BPM Atrial Rate : 76 BPM P-R Interval : 154 ms QRS Duration : 84 ms Q-T Interval : 400 ms QTC Calculation(Bazett) : 450 ms Calculated [place] : 74 degrees Calculated R [place] : 55 degrees Calculated T [place] : 63 degrees NORMAL SINUS RHYTHM NORMAL ECG Confirmed by SHIELA GARCIA MD ([id number]) on 05/30/2023 10:51:21 PM NAME : ANIL LEOS PID : [id number] : 1965 Gender : Male Race : ORD : Procedure Date : May 19 2023 11:04:29 Edit Date : May 30 2023 22:51:21 Diagnosis: NORMAL SINUS RHYTHM NORMAL ECG Confirmed by SHIELA GARCIA MD ([id number]) on 05/30/2023 10:51:21 PM Test Reason : Location : 117 : CA2RE Overread By : SHIELA GARCIA MD Edited By : SHIELA GARCIA MD Referred By : BRYCE VENTURA Acquired by : Howard washington [facility] Eosinophils/100 WBC Auto (Bl d)on 05-19-2023 Eosinophils/100 WBC (Bld) 3.8 % [facility] Erythrocyte distribution wid th Auto (RBC) [Ratio]on 05-19-2023 Erythrocyte distribution width (RBC) [Ratio] 20.0 % 11.5-15.0 [facility] Hematocrit Auto (Bld) [Volum e fraction]on 05-19-2023 Hematocrit (Bld) [Volume fraction] 38.5 % 39.0-51.0 [facility] Hemoglobin [Mass/volume] in Bloodon 05-19-2023 Hemoglobin (Bld) [Mass/Vol] 10.2 g/dL 13.0-17.0 [facility] Laboratory - Chemistry and C hemistry - challengeon 05-19-2023 Albumin [Mass/Vol] 4.4 g/dL 3.9-4.9 [facility] ALP [Catalytic activity/Vol] 55 U/L 38-113 [facility] ALT [Catalytic activity/Vol] 18 U/L 10-54 [facility] AST [Catalytic activity/Vol] 24 U/L 14-40 [facility] Bilirubin [Mass/Vol] 0.4 mg/dL 0.2-1.3 [facility] Calcium [Mass/Vol] 9.0 mg/dL 8.5-10.2 [facility] Chloride [Moles/Vol] 105 mmol/L 97-105 [facility] CO2 [Moles/Vol] 26 mmol/L 22-30 [facility] Creatinine [Mass/Vol] 0.98 mg/dL 0.73-1.22 [facility] Glucose [Mass/Vol] 92 mg/dL 74-99 [facility] Comment on above: The [place] Diabete s Association (ADA) provides guidance for [...] Standards of Medical Care in Diabetes 2016, [place] Diabetes Association. Diabetes Care. 2016.39(Suppl 1). Potassium [Moles/Vol] 4.5 mmol/L 3.7-5.1 [facility] Sodium [Moles/Vol] 140 mmol/L 136-144 [facility] Urea nitrogen [Mass/Vol] 18 mg/dL 9-24 [facility] Laboratory - Hematology and Cell countson 05-19-2023 Eosinophils (Bld) [#/Vol] 0.43 10*3/uL <0.46 [facility] Immature granulocytes (Bld) [#/Vol] 0.10 10*3/uL <0.10 [facility] Immature granulocytes/100 WBC (Bld) 0.9 % [facility] Leukocytes [#/volume] correc mary for nucleated erythrocytes in Blood by Automated counon 05-19-2023 WBC corrected for nucl RBC Auto (Bld) [#/Vol] 11.40 k/uL 3.70-11.00 [facility] Lymphocytes Auto (Bld) [#/Vo l]on 05-19-2023 Lymphocytes (Bld) [#/Vol] 0.94 10*3/uL 1.00-4.00 [facility] Lymphocytes/100 WBC Auto (Bl d)on 05-19-2023 Lymphocytes/100 WBC (Bld) 8.2 % [facility] MCH Auto (RBC) [Entitic mass ]on 05-19-2023 MCH (RBC) [Entitic mass] 18.6 pg 26.0-34.0 [facility] MCHC Auto (RBC) [Mass/Vol]on 05-19-2023 MCHC (RBC) [Mass/Vol] 26.5 g/dL 30.5-36.0 [facility] MCV Auto (RBC) [Entitic vol] on 05-19-2023 MCV (RBC) [Entitic vol] 70.4 fL 80.0-100.0 [facility] Monocytes Auto (Bld) [#/Vol] on 05-19-2023 Monocytes (Bld) [#/Vol] 0.49 10*3/uL <0.87 [facility] Monocytes/100 WBC Auto (Bld) on 05-19-2023 Monocytes/100 WBC (Bld) 4.3 % [facility] Neutrophils Auto (Bld) [#/Vo l]on 05-19-2023 Neutrophils (Bld) [#/Vol] 9.28 10*3/uL 1.45-7.50 [facility] Neutrophils/100 WBC Auto (Bl d)on 05-19-2023 Neutrophils/100 WBC (Bld) 81.4 % [facility] No Panel Informationon 05-18 Estimated GFR (CKD-EPI) 89 mL/min/1.73m??? >=60 [facility] Comment on above: Estimated Glomerular Filtration Rate [...] may not accurately reflect actual GFR. Nucleated RBC Auto (Bld) [#/ Vol]on 05-19-2023 Nucleated RBC (Bld) [#/Vol] 10*3/uL <0.01 [facility] Nucleated erythrocytes [Pres ence] in Blood by Automated counton 05-19-2023 Nucleated RBC Auto Ql (Bld) 0.0 /100{WBC} [facility] Platelet mean volume Auto (B ld) [Entitic vol]on 05-19-2023 Platelet mean volume (Bld) [Entitic vol] 8.6 fL 9.0-12.7 [facility] Platelets Auto (Bld) [#/Vol] on 05-19-2023 Platelets (Bld) [#/Vol] 925 10*3/uL 150-400 [facility] Protein [Mass/volume] in Ser um or Plasmaon 05-19-2023 Protein [Mass/Vol] 6.7 g/dL 6.3-8.0 [facility] RBC Auto (Bld) [#/Vol]on RBC (Bld) [#/Vol] 5.47 10*6/uL 4.20-6.00 [facility] Serum or plasma anion gap de terminationon 05-19-2023 Anion gap [Moles/Vol] 9 mmol/L 9-18 [facility] CNPNon 05-18-2023 CNPN Telephone (HEMACA) ANIL LEOS ([id number]) 1965 M Date Time Provider Department 05/18/23 FINANCIAL NAVIGATOR VENKAT MACHADO During your visit today, we recorded the following information about you: Magdalene Mccloud 05/18/2023 12:56 PM Signed 1st time treatment report. Patient is active with [employer], LOC 80%, $1500 deductible has $1456.87 remaining, and $5500 OOP has $5259.01 remaining. Did not run estimate- pt is active in clinical trial. Called the patient to discuss navigator services and LLS, left a voicemail to return call. Emailed pt contact info and FN hot card. DX: D45 Polycythemia Allergies As of Date: 05/18/2023 Noted Allergy Reaction BACTRIM (SULFAMETHOXAZOLE-TR IMETH*10/31/2020 2 - Rash Date Reviewed: 03/24/2023 Reviewed by: Annie Abreu APRN.WIRER PASSENGER CAR - Fully Assessed Reason for Visit: Benefits Investigation [4098] Prescriptions as of 05/18/2023 - efinaconazole 10 % alfa Apply 1 application to affected area once daily. - ruxolitinib phosphate (OPZELURA TOPICAL) Apply to affected area. - KRILL OIL ORAL Take by mouth twice daily. - multivitamin with minerals (ONE-A-DAY 50 PLUS ORAL) Take by mouth once daily. - aspirin 81 mg cap Take by mouth once daily. Problem List As Of Date 05/18/2023 Noted Resolved Polycythemia vera (HCC) [D45] 12/16/2020 Encounter Status:Closed by MAGDALENE MCCLOUD on 05/18/23 [facility] Tamia 05-17-2023 CNPN Telephone (HEMAMN) ANIL LEOS ([id number]) 1965 M Date Time Provider Department 05/17/23 HANNAH LYONS During your visit today, we recorded the following information about you: Hannah Lyons RN 05/17/2023 4:16 PM Signed Informed Consent Presentation IRB# [id number] Title: An [...] the plan to roll him over to [facility] 1923 on his next visit on 05/19/2023. Discussed changes in dosing, appointment frequency and signing consent prior to getting lab work completed. Pt verbalized understanding. Verified pt's email as [email or web address] and that he needs to read the consent prior to signing on , 05/19/2023. Pt has research RN's contact info in order to answer any questions he may have. Allergies As of Date: 05/17/2023 Noted Allergy Reaction BACTRIM (SULFAMETHOXAZOLE-TR IMETH*10/31/2020 2 - Rash Date Reviewed: 03/24/2023 Reviewed by: Annie Abreu APRN.WIRER PASSENGER CAR - Fully Assessed Reason for Visit: Research [293] Cmt: [facility] -180 consent presentation Prescriptions as of 05/17/2023 - efinaconazole 10 % alfa Apply 1 application to affected area once daily. - ruxolitinib phosphate (OPZELURA TOPICAL) Apply to affected area. - KRILL OIL ORAL Take by mouth twice daily. - multivitamin with minerals (ONE-A-DAY 50 PLUS ORAL) Take by mouth once daily. - aspirin 81 mg cap Take by mouth once daily. Problem List As Of Date 05/17/2023 Noted Resolved Polycythemia vera (HCC) [D45] 12/16/2020 Encounter Status:Closed by HANNAH LYONS on 05/17/23 Normal [facility] CT ABDOMEN WO IVCONon [address] [facility] [address] ABDOMEN WO IVCONon 2022 [facility] CBC AUTO DIFFon 09-11-2021 BASO # 0.2 103/ul Critically high 0.0-0.1 [facility] Comment on above: Performed By: #### C BC #### [facility] [address] [address] [address] Roxanne Paulino Basophils/100 WBC (Bld) 1.5 % Normal 0.2-2.0 [facility] Comment on above: Performed By: #### C BC #### [facility] [address] [place] [address] [address] Roxanne Paulino EO # 0.4 103/ul Normal 0.0-0.7 [facility] Comment on above: Performed By: #### C BC #### [facility] [address] [place] [address] [address] Roxanne Paulino Eosinophils/100 WBC (Bld) 3.5 % Normal 0.9-7.0 [facility] Comment on above: Performed By: #### C BC #### [facility] [address] [place] [address] [address] Roxanne Paulino Erythrocyte distribution width (RBC) [Ratio] 20.7 % Critically high 11.0-15.0 [facility] Comment on above: Performed By: #### C BC #### [facility] [address] [place] [address] Dr. Roxanne Paulino Hematocrit (Bld) [Volume fraction] 43.4 % Normal 42.0-54.0 [facility] Comment on above: Performed By: #### C BC #### [facility] [address] [address] [address] Roxanne Paulino Hemoglobin (Bld) [Mass/Vol] 11.5 g/dL Critically low 14.0-18.0 [facility] Comment on above: Performed By: #### C BC #### [facility] [address] [address] [address] Roxanne Paulino IG # 0.12 10e3/ul Critically high 0.00-0.03 [facility] Comment on above: Performed By: #### C BC #### [facility] [address] [address] [address] Roxanne Paulino IG % 1.0 % Critically high 0.0-0.5 [facility] Comment on above: Performed By: #### C BC #### [facility] [address] [address] [address] Roxanne Paulino LYMPH # 1.1 103/ul Critically low 1.2-3.8 [facility] Comment on above: Performed By: #### C BC #### [facility] [address] [address] [address] Roxanne Paulino Lymphocytes/100 WBC (Bld) 9.4 % Critically low 20.5-60.0 [facility] Comment on above: Performed By: #### C BC #### [facility] [address] [address] [address] Roxanne Paulino MANUAL DIFF REQ NO Normal [facility] Comment on above: Performed By: #### C BC #### [facility] [address] [place] [address] Dr. Roxanne Paulino MCH (RBC) [Entitic mass] 19.5 pg Critically low 25.9-34.0 [facility] Comment on above: Performed By: #### C BC #### [facility] [address] [place] [address] Dr. Roxanne Paulino MCHC (RBC) [Mass/Vol] 26.5 g/dL Critically low 29.9-35.2 [facility] Comment on above: Performed By: #### C BC #### [facility] [address] [place] [address] Dr. Roxanne Paulino MCV (RBC) [Entitic vol] 73.6 fL Critically low 80.0-94.0 [facility] Comment on above: Performed By: #### C BC #### [facility] [address] [place] [address] Dr. Roxanne Paulino MONO # 0.6 103/ul Normal 0.3-0.8 [facility] Comment on above: Performed By: #### C BC #### [facility] [address] [place] [address] Dr. Roxanne Paulino Monocytes/100 WBC (Bld) 4.9 % Normal 1.7-12.0 [facility] Comment on above: Performed By: #### C BC #### [facility] [address] [place] [address] Dr. Roxanne Paulino NEUT # 9.6 103/ul Critically high 1.4-6.5 [facility] Comment on above: Performed By: #### C BC #### [facility] [address] [address] [address] Roxanne Paulino Neutrophils/100 WBC (Bld) 79.7 % Critically high 43.0-75.0 [facility] Comment on above: Performed By: #### C BC #### [facility] [address] [address] [address] Roxanne Paulino Platelet mean volume (Bld) [Entitic vol] 8.0 fL Critically low 9.5-13.5 [facility] Comment on above: Performed By: #### C BC #### [facility] [address] [address] [address] Roxanne Paulino PLT 827 103/ul Critically high 150-450 [facility] Comment on above: Performed By: #### C BC #### [facility] [address] [address] [address] Roxanne Paulino RBC 5.90 106/ul Normal 4.70-6.10 [facility] Comment on above: Result Comment: 1+ H YPOCHROMIA 1+ POIKILOCYTOSIS 1+ OVALOCYTE SLIGHT TEAR DROP Performed By: #### C BC #### [facility] [address] [address] [address] Roxanne Paulino WBC 12.1 103/ul Critically high 4.0-11.0 [facility] Comment on above: Performed By: #### C BC #### [facility] [address] [address] [address] Roxanne Paulino LIPID PROFILEon 09-11-2021 CHOL-HDL RATIO NORM SEE BELOW Normal [facility] Comment on above: Result Comment: 3.3 - 4.4 LOW RISK 4.4 - 7.1 AVERAGE RISK 7.1 - 11.0 MODERATE RISK >11.0 HIGH RISK Performed By: #### L IPID, CMP #### [facility] [address] [address] [address] Roxanne Paulino Cholesterol [Mass/Vol] 144 mg/dL Normal <=200 [facility] Comment on above: Performed By: #### L IPID, CMP #### [facility] [address] [address] [address] Roxanne Paulino Cholesterol in HDL [Mass/Vol] 51 mg/dL Normal 40-60 [facility] Comment on above: Performed By: #### L IPID, CMP #### [facility] [address] [address] [address] Roxanne Paulino Cholesterol in LDL [Mass/Vol] 83.0 mg/dL Normal [facility] Comment on above: Performed By: #### L IPID, CMP #### [facility] [address] [address] [address] Roxanne Paulino Cholesterol.total/Ch olesterol in HDL [Mass ratio] 2.8 {ratio} Normal [facility] Comment on above: Performed By: #### L IPID, CMP #### [facility] [address] [place] [address] Dr. Roxanne Paulino HDL NORMAL > or = 60 mg/dl - LOW CARDIOVASCULAR RISK <40 mg/dl - HIGH CARDIOVASCULAR RISK Normal [facility] Comment on above: Performed By: #### L IPID, CMP #### [facility] [address] [address] [address] Roxanne Paulino LDL CALC NORMAL SEE BELOW Normal [facility] Comment on above: Result Comment: <100 mg/dl OPTIMAL 100 - 129 mg/dl NEAR OR ABOVE OPTIMAL 130 - 159 mg/dl BORDERLINE HIGH 160 - 189 mg/dl HIGH >190 mg/dl VERY HIGH Performed By: #### L IPID, CMP #### [facility] [address] [address] [address] Roxanne Paulino Triglyceride [Mass/Vol] 50 mg/dL Normal <=150 [facility] Comment on above: Performed By: #### L IPID, CMP #### [facility] [address] [place] [address] Dr. Roxanne Paulino VLDL CALC 10.0 mg/dL Normal [facility] Comment on above: Performed By: #### L IPID, CMP #### [facility] [address] [address] [address] Roxanne Paulino PROF 14(COMP METB)on 022 Albumin [Mass/Vol] 4.1 g/dL Normal 3.4-5.0 [facility] Comment on above: Performed By: #### L IPID, CMP #### [facility] [address] [address] [address] Roxanne Paulino Albumin/Globulin [Mass ratio] 1.4 {ratio} Normal [facility] Comment on above: Performed By: #### L IPID, CMP #### [facility] [address] [address] [address] Roxanne Paulino ALP [Catalytic activity/Vol] 55 U/L Normal 46-116 [facility] Comment on above: Performed By: #### L IPID, CMP #### [facility] [address] [address] [address] Roxanne Paulino ALT [Catalytic activity/Vol] 12 U/L Critically low 16-63 [facility] Comment on above: Performed By: #### L IPID, CMP #### [facility] [address] [address] [address] Roxanne Paulino Anion gap [Moles/Vol] 8.2 mmol/L Normal [facility] Comment on above: Performed By: #### L IPID, CMP #### [facility] [address] [address] [address] Roxanne Paulino AST [Catalytic activity/Vol] 14 U/L Critically low 15-37 [facility] Comment on above: Performed By: #### L IPID, CMP #### [facility] [address] [address] [address] Roxanne Paulino Bilirubin [Mass/Vol] 0.5 mg/dL Normal 0.2-1.0 [facility] Comment on above: Performed By: #### L IPID, CMP #### [facility] [address] [address] [address] Roxanne Paulino Calcium [Mass/Vol] 8.9 mg/dL Normal 8.5-10.1 [facility] Comment on above: Performed By: #### L IPID, CMP #### [facility] [address] [address] [address] Roxanne Paulino Chloride [Moles/Vol] 106 mmol/L Normal 98-107 [facility] Comment on above: Performed By: #### L IPID, CMP #### [facility] [address] [place] [address] Dr. Roxanne Paulino CO2 [Moles/Vol] 31.5 mmol/L Normal 21.0-32.0 [facility] Comment on above: Performed By: #### L IPID, CMP #### [facility] [address] [place] [address] Dr. Roxanne Paulino Creatinine [Mass/Vol] 1.06 mg/dL Normal 0.70-1.30 [facility] Comment on above: Performed By: #### L IPID, CMP #### [facility] [address] [place] [address] Dr. Roxanne Paulino EGFR-AF GERMAN >60 Normal >=60 [facility] Comment on above: Performed By: #### L IPID, CMP #### [facility] [address] [place] [address] Dr. Roxanne Paulino EGFR-NON AF GERMAN >60 Normal >=60 [facility] Comment on above: Performed By: #### L IPID, CMP #### [facility] [address] [place] [address] Dr. Roxanne Paulino Globulin (S) [Mass/Vol] 3.0 g/dL Normal [facility] Comment on above: Performed By: #### L IPID, CMP #### [facility] [address] [place] [address] Dr. Roxanne Paulino Glucose [Mass/Vol] 80 mg/dL Normal 74-106 [facility] Comment on above: Performed By: #### L IPID, CMP #### [facility] [address] [place] [address] Dr. Roxanne Paulino Potassium [Moles/Vol] 4.7 mmol/L Normal 3.5-5.1 [facility] Comment on above: Performed By: #### L IPID, CMP #### [facility] [address] [place], [place] [address] Dr. Roxanne Paulino Protein [Mass/Vol] 7.1 g/dL Normal 6.4-8.2 [facility] Comment on above: Performed By: #### L IPID, CMP #### [facility] [address] [address] [address] Roxanne Paulino Sodium [Moles/Vol] 141 mmol/L Normal 136-145 [facility] Comment on above: Performed By: #### L IPID, CMP #### [facility] [address] [address] [address] Roxanne Paulino Urea nitrogen [Mass/Vol] 17.0 mg/dL Normal 7.0-18.0 [facility] Comment on above: Performed By: #### L IPID, CMP #### [facility] [address] [address] [address] Roxanne Paulino Urea nitrogen/Creatinine [Mass ratio] 16.0 mg/mg Normal [facility] Comment on above: Performed By: #### L IPID, CMP #### [facility] [address] ABDOMEN WO IVCONon 2021 [facility] Coding Summary.on 03-09-2021 Coding Summary. CD:[id number] Gh0bWw+PGhlYWQ+PE1FV GYgE71naLGjgW9WV1vZP G5JAZVMXPLRHY9TZR3bu QJ2SXvbE6VzczJh TffpyFFaDQ06LFo6MRM4 fZstYHufmO6wsKVbR1p3 PrTgJS17bU74TCyvDRTn NjW4BuNmrvoznPXj O7pcJcVdnWNcFnk+PHRh YmxlIHdpZHRoPScxMDAl GgLtvToqMQ4mVt8aFOWt LWNvbGxhcHNlOiBj o5ouFNSoLWxgYY5liShl K6OrtFV6RIKho2c6Hn69 dHI+LFRhZOB4kIeqPQay v616AnYbu9ymCZK1 kILgTBzuWGJ3B37wz2G7 MQEtOGMrROB3jSE7tG1v iSkxzmtiP7GebMZcLrP8 MYC1nDFsfT0meXes fnreuO5kFjj+K76ONX8N APZSKA9KMxo1R8KpVrsz dHI+AJ24WNPaCH60dIWz uXQwj1aenTh5OpJw ZCKlRKZ2gAtaVLcow5Ap EOVcC69ftCPwr1V2XBTw rNxjvWSoRrXmyKG4hG3n KGqqbnxhw5xettbu Xejjw0msul00oE60J40n AHqaWMMoYHP1XNJlCPTj tLrjnp4auN4mQa5+IDxj n7npc9zytKv8HmSl DITuuoDfbUmiDQR9s6Rv Xv34Q5DesIudy2WcJhn5 hy66jCYfp3A1iFI0WLso LTXulA2fSEhhDkV0 HMSoOpCnoI73bXIdXOuf Bm8ydDugjYeyPB7zUDLp nvmnOMOmuF1kYAOzxOOy mShmDU4yYTVsrodf l263WnAxRAB9MSRcdUNb N9ZuoF5aKwTlPFSvVALy O0PvjPWeEHstB575ILgc EsG3BKNfllGhA9Ug XELkqXjfVoD6q0C0Lr4Q l3WvvsurVPJ4XAjyLWPe HnU9VvFrSrO1Q2GkWac3 GDDkgOsuCY1xA1Aq VOOnnaeimexmzHX0EXYh SVHpeY87lPKjPTrdSt5b c2S9m509ALExVMAfhJ45 Qn4inGpnGRCfmILK cZ0zxsyml8zspxueHqSp EFHxGGn5WEe5EWNrdXuh JdYdFEA9CdW3UQN6qGYi bU6ayTuepgzegS0x Oyc+V06dvC7yUYJ8KRO0 leenHEGlkrVeBL32XZ55 W4XjRwpkqTXwoGA+PGRp ydRclWbeHE4qIkEj o3stu9NmWDyqF6YoOJEj ECphXre6OMPmFQI4oMA0 rU8yLOVjZXiha1U9wKI8 A0SnkmHnvc1al9cz HUApSNoaZ05vtUHex3W2 OFYquHT9DYHdrCtmFyWa cT17Jem+CTSzkTpzz3Xy Nnblj1sgl8rtaWi8 IjMwJSIgdmFsaWduPSJ0 b1StRu85R83pEAqqIMQp HVBaRIHaPJXvsOezux4s qX6vLf3+PGNvbCB3 fIB2eL7eJYZnIeI5XJcu T733MoIcrHMkSindw4zt g0lipEd8MqBsCSBrueRi hCkoQMX9p6LkTo69 P38xVXrtWTHaJXSxSGKb TVDzcDnenz3usD8sEp2+ VK8qo0igit99yK30yRW+ ILZqBNY5nToaWNvf DEZlvH4xVBbrQxY5VGSw HvQsxU94uTAeHXcnDg4d dOxslPjgQG2zHKZgrtjg b650XpPup4liPOGs fLIyVRjbTHW3R87nb3A0 BOSzLGDpOJD4hRB6zY7e bGlnbjogbGVmdDsgdmVy rLufQTgmOXxaS509 IHRvcDsnPlBhdGllbnQg XcMqKAm0Z1ViNne8WNIj tYlpVH0mzEXnNIgwAv1f uXrsiTpoUT2uOOSy ddbbb123IvVgk9zwPBJa uYMtGInxNCY4S02ot6D3 JTAsQRAbCBE5aSK9jY2w bGlnbjogbGVmdDsg gpYsaDzhEGwrWKfjG095 IHRvcDsnPkJpcnRoIERh cRT8RS46OG06sVAyh5C4 rRY4B8UrPTYdafol rpfxlAR3ACHzJNGwqE01 Xg5etXylXi0nNPIxGAM1 QDVfoZUvD9JwlK5rTtNp PCSbTNEyE0YyrZTc EYwwN016AZybGbL3KYVh olGvS4NlGEEqkDebBfS6 t5D2Ih5SY8G9KH94SJ73 uELlq0U5vTM9X7Tv DZKyonwvzgxduXP9BGQy ZDChjI64Hy3zqUeoQo2d RNAzEPR8RTSzeQBuW4Tc oY7jLiNcHLEjBASz P6AwlCZxMWqvM000MNrq VhQ5CTQuecEfD3GqAMXh fFjcBiZ9d1H8Vf8QOWq6 VQ80IF04oNXlw5F2 mYI9U6YaEHRmcrobrqzm cYO0OHIfPFKzsR49Yg7e nTygPn5yUAEqCFF1JTRv pYEuX6SsgG1nGnPf HMVlPPZeV5RunMJkQMrj P005YKqbJfF5HGBbicMt R5XcZVPqwJqvJpO5m4H5 Fj9BNINzCK52SNP3 kNR3VU72AB98A1WjMdmd dGFibGU+PHRhYmxlIHdp ZHRoPScxMDAlJyBzdHls FU6vKg8gQJYuBVMd jIikhPCcGnYcb5udVNMm ETghHB0dqPcoC1SzhDR7 EWCvq0a2Uv96D58mT6Fc dXA+OHPbqBS9aLD0 cL3iZhFrHkP0ZSavF044 EhNqrZLwFoboj6rue0jr pVg7QiT2RYNcecBymQoq JVL5m4YvMy56I83v IHdpZHRoPSIxNSUiIHZh pVdxpi2htT8vQy2+PGNv aPQ9gNQ5qW5uUiFrBrZ9 YQgxJ219RfFvyOXu Mwjyz3fhk1wgiPm3AaHq HNKknpPggTavITF9e8Yq Zs89L6TdnOtiz3NbSjb3 ec95bRMee6T9gKK3 E2LpNGZnxdmggDTbdBsq RS1vHBUhhfplKPNckM7m MHJoJ2u0RpUtYmS8RVva I5CghwW2SGOleQLr QLggGFZ4S37nj8C4MZOk RICtEYL8aJN4lJ8auEbo bjogbGVmdDsgdmVydGlj ZGsdSAwhU000GQEa gGplRRMzlR3sYMJnoTSl fXbcWH8pIPOnyjuzZeyF UlRMRVksIEpFRkZSRVkg SjwvdGQ+PHRkIHN0 wIqaHKruYQXtrX3gBYRi Z3j6UfJbEkV0BOmpO1Xa POWpdycaTt39oH6oAvYv YcA0QAvgF7OfqgT5 XUNuaOQoEAygQYL7J99t h4N5NSNmHZUoCUR5kCJ6 hQ3zwCukaynpbDZwsJfp dmVydGljYWwtYWxp G046PKFhlCzeOsXgTmIx OuM9NjI6I4XiEhq9BVWr cDrtCJ3qzGOmQTopBe7u lHhrlQoyHH9kNZIx wehnSUDdqY1zVQHerWJm mUgzLW1wKNLdalmbh104 WuBqUGQ9FBOffHFxG6Tj kE8tNaDkVQFkACTa T8XsmCHyUSjjY941DFec BiW4FGRrbjGaN2XxQQDp cMxbUtO4i8J3Fn75XxET ZWFyczwvdGQ+PHRk AVJ3dVikKDojGVHepL3b PXXoC5r2QuXbIvP1ICxf W1RdPPQmacavUs91wK5q OiIeObO3JTogC5Oh ipC1GYVdsRNiVNlvENO7 V28ud4J8AYToFHZaDBI3 cTU9gS1vaDssqzyuaFFx dDsgdmVydGljYWwt YLisP263UTTsaIshIl0h mSR4S8KfCwh2MTAtsPka HW9efQYuUIbdJm9szRtw iXlwDN2cSTKhknaz ZHOorZ4cHOBcyDCxcQkx UC2dTOGaoszqd455KuEv MSQ1IHVvbXWvV4VvgO5x NkNoXUKnCYZzW8Fl nQKtFJkmG832JQloApI4 QDCnqxHrL7JxGJNwvZdw AmG6a1X9Lz9OXLW9xmEm spu5V4BiRvbmeOX+ AN29BLPeBL91bWMsbMBk p4ttnZl3EbOqTOQtUQR2 jQnuOWveu8PxHHChO90c zWPnq4L6KXFweEiz sFWnUfRktOY4oT3zYZww ndgba5ntdptcQyloy9he ow04nR06P03bOEgvBTOw PSIzMCUiIHZhbGln xq0tjE6tDu7+PGNvbCB3 pSY2tX2fPdCfUgH6CZvq X912UuUpaUFjUrljt7ov z5hwhJm1BqXoMINu vtLxtHttCKL6w0ZsPs00 J95mCCtbPMDdPFElWJUt MJXziNusox6rcQ6sVu4+ NT2fe3nbjs58hF80 dHI+IGCeTLT2eCeaYPuu QSWcwD7eTCwyBeY2NTFd AgEbjI90wBSlHVlbTf7f xEdqyDhfWM8kLDMf zthfk728ZePcz6cuGXEd qMDxTTasCXR2N08wm5D8 WSYdJDHsKRU6gBV6iL6i bGlnbjogbGVmdDsg euCgpCzuGTubDZocH452 VWDwsMyaLrHtuDKxV5cg bdXGVG9yBaiucFU+PHRk CYC5hCmeBPqlSPUd dV0dTBWhL6e7PsOpRiT2 HIhxI1ZmutA7JDHuiCYq YAGahRFKdA9phhesx2fb cjogIzAwMDAwMDt0 HYb5JFObtOwjUuGwIXT0 RcK5UHR4xRIluC2viEtl yummnZ8iNqm+RklOOjwv dGQ+YVUaKEE1vDcg HLyvRUUgrC9ePSKjF7u2 OjSfXvX7ORwcL5HqhzP4 PISriGIvMINpeUONxD3f jqeyq9iyqgjsEiTr TCFwIHb5LLv7JIRuhQwa VeBdPDM6CmT4ZPY7tKHs cO0mvRzhpjthxD5qMte+ TVJOOjwvdGQ+PHRk MIQ5aTqkSQvwELLroS8p VRHoC0k3XeJuRnE2BYtw M1MpsjI7GCDxhXAaYQIw gIUCbH7lamypu7oj tllnGmPpOIIzNCr2KYz1 YQXxcFyiNmCaUMG3BcE1 MKI8zKMiyG2icZvzwkyr jF2vThg+OLH5ZNQ0 AJ94WB13A4JhAvvvjFTo bGU+PHRhYmxlIHdpZHRo VTelJPAySwYcuLfjYS3g Pm1qSEDwHNUebAjv cHNl (more content not included)... Normal [facility] Priority Order-Svetlana 2021 Priority Order-STAT Comment Invalid Interpretation Code [facility] Comment on above: Result Comment: Rece ived Performed at: [facility] [address] [place], [place] [id number] PhD Jennie Yoo Performed By: #### S ARS-CoV-2, IAN, [id number] #### [facility] [address] [place] [address] SARS-CoV-2, NAAon 03-08-2021 SARS-CoV-2 (COVID-19) RNA IAN+probe Ql (Resp) Not detected Invalid Interpretation Code Not Detected [facility] Comment on above: Result Comment: This nucleic acid amplification test was developed and its performance characteristics determined by [employer]. Nucleic acid amplification tests include RT-PCR and [...] detected) result in this assay. Performed at: [address] [id number] PhD Jennie Yoo Performed By: #### S ARS-CoV-2, IAN, [id number] #### [facility] [address] [place] [address] Consent for Treatmenton 02-15 Consent for Treatment [id number] Normal [facility] Reference Laboratory Testing Ordered By: [facility] [place] [employer] on 2021 SARS-CoV-2 (COVID-19) RNA IAN+probe Ql (Resp) Not detected Invalid Interpretation Code Not Detected [facility] [employer] Comment on above: Result Comment: This nucleic acid amplification test was developed and its performance characteristics determined by [employer]. Nucleic acid amplification tests include RT-PCR and [...] detected) result in this assay. Performed at: [address] [id number] PhD Jennie Yoo ERYTHROPOIETIN (EPO)on 10-02 Erythropoietin 2.2 mIU/mL Critically low 2.6-18.5 [facility] Comment on above: Result Comment: [employer] D[employer]I 800 Immunoassay System . Values obtained with different assay methods or kits cannot be used interchangeably. Results cannot be interpreted as absolute evidence of the presence or absence of malignant disease. Performed By: #### E POLC #### [facility] [address] [place] [address] Lou Caitlyn UA RANDOM W/MICROSCOPICon BACTERIA NONE SEEN Normal NONE SEEN [facility] Comment on above: Performed By: #### U AMIC #### [facility] [address] [place] [address] Lou Caitlyn Bilirubin Ql (U) Negative Normal NEGATIVE [facility] Comment on above: Performed By: #### U AMIC #### [facility] [address] [place] [address] Lou Caitlyn CAST NONE SEEN Normal NONE SEEN [facility] Comment on above: Performed By: #### U AMIC #### [facility] [address] [place] [address] Lou Caitlyn Clarity (U) CLEAR Normal CLEAR [facility] Comment on above: Performed By: #### U AMIC #### [facility] [address] [id number] Lou Caitlyn Color (U) LT. YELLOW Normal YELLOW [facility] Comment on above: Performed By: #### U AMIC #### [facility] [address] [id number] Lou Caitlyn Crystals LM Nom (Urine sed) NONE SEEN Normal NONE SEEN [facility] Comment on above: Performed By: #### U AMIC #### [facility] [address] [address] Lou Caitlyn Epithelial cells LM Ql (Urine sed) RARE Normal NONE SEEN /RARE [facility] Comment on above: Performed By: #### U AMIC #### [facility] [address] [address] Lou Caitlyn Glucose Ql (U) Negative Normal NEGATIVE [facility] Comment on above: Performed By: #### U AMIC #### [facility] [address] [address] Lou Caitlyn Hemoglobin Ql (U) Negative Normal NEGATIVE [facility] Comment on above: Performed By: #### U AMIC #### [facility] [address] [address] Lou Caitlyn Ketones Ql (U) Negative Normal NEGATIVE [facility] Comment on above: Performed By: #### U AMIC #### [facility] [address] [id number] Lou Caitlyn LEUKOCYTES Negative Normal NEGATIVE [facility] Comment on above: Performed By: #### U AMIC #### [facility] [address] [id number] Lou Caitlyn MUCOUS NONE SEEN Normal NONE SEEN [facility] Comment on above: Performed By: #### U AMIC #### [facility] [address] [address] Lou Caitlyn Nitrite Ql (U) Negative Normal NEGATIVE [facility] Comment on above: Performed By: #### U AMIC #### [facility] [address] [address] Lourahul Brady pH (U) 6.5 [pH] Normal 5-9 [facility] Comment on above: Performed By: #### U AMIC #### [facility] [address] [place], [place] [id number] Lou Caitlyn RBC NONE SEEN Abnormal 0-2 [facility] Comment on above: Performed By: #### U AMIC #### [facility] [address] [place] [address] Lou Brady SPEC GRAVITY 1.010 Normal 1.005-<=1.025 [facility] Comment on above: Performed By: #### U AMIC #### [facility] [address] [place] [address] Lourahul Brady UA PROTEIN Negative Normal NEGATIVE/ TRACE [facility] Comment on above: Performed By: #### U AMIC #### [facility] [address] [place], [place] [id number] Lourahul Brady Urobilinogen Qn (U) 0.2 {Ching'U}/dL Normal 0.2 - 1. 0 [facility] Comment on above: Performed By: #### U AMIC #### [facility] [address] [place], [place] [phone] Lou Caitlyn WBC NONE SEEN Normal NONE SEEN [facility] Comment on above: Performed By: #### U AMIC #### [facility] [address] [place], [place] [phone] Lourahul Brady CBC AUTO DIFFon 09-29-2020 BASO # 0.2 103/ul Critically high 0.0-0.1 [facility] Comment on above: Performed By: #### C BC #### [facility] [address] [place], [place] [id number] Lou Caitlyn Basophils/100 WBC (Bld) 1.8 % Normal 0.2-2.0 [facility] Comment on above: Performed By: #### C BC #### [facility] [address] [place] [address] Lou Caitlyn EO # 0.3 103/ul Normal 0.0-0.7 [facility] Comment on above: Performed By: #### C BC #### [facility] [address] [place], [place] [address] Lou Caitlyn Eosinophils/100 WBC (Bld) 2.9 % Normal 0.9-7.0 [facility] Comment on above: Performed By: #### C BC #### [facility] [address] [phone] Lou Caitlyn Erythrocyte distribution width (RBC) [Ratio] 15.5 % Critically high 11.0-15.0 [facility] Comment on above: Performed By: #### C BC #### [facility] [address] [phone] Lou Caitlyn Hematocrit (Bld) [Volume fraction] 57.3 % Critically high 42.0-54.0 [facility] Comment on above: Performed By: #### C BC #### [facility] [address] [place], [place] [id number] Lou Caitlyn Hemoglobin (Bld) [Mass/Vol] 18.8 g/dL Critically high 14.0-18.0 [facility] Comment on above: Performed By: #### C BC #### [facility] [address] [place], [place] [id number] Lou Caitlyn IG # 0.15 10e3/ul Critically high 0.00-0.03 [facility] Comment on above: Performed By: #### C BC #### [facility] [address] [place], [place] [id number] Lou Caitlyn IG % 1.4 % Critically high 0.0-0.5 [facility] Comment on above: Performed By: #### C BC #### [facility] [address] [place], [place] [id number] Lou Caitlyn LYMPH # 1.0 103/ul Critically low 1.2-3.8 [facility] Comment on above: Performed By: #### C BC #### [facility] [address] [place], [place] [id number] Lou Caitlyn Lymphocytes/100 WBC (Bld) 9.2 % Critically low 20.5-60.0 [facility] Comment on above: Performed By: #### C BC #### [facility] [address], [place] [address] Lou Caitlyn MANUAL DIFF REQ NO Normal [facility] Comment on above: Performed By: #### C BC #### [facility] [address] [place], [place] [id number] Lourahul Brady MCH (RBC) [Entitic mass] 29.5 pg Normal 25.9-34.0 [facility] Comment on above: Performed By: #### C BC #### [facility] [address] [place], [place] [id number] Lourahul Brady MCHC (RBC) [Mass/Vol] 32.8 g/dL Normal 29.9-35.2 [facility] Comment on above: Performed By: #### C BC #### [facility] [address] [place], [place] [id number] Lou Caitlyn MCV (RBC) [Entitic vol] 90.0 fL Normal 80.0-94.0 [facility] Comment on above: Performed By: #### C BC #### [facility] [address] [place], [place] [id number] Lou Caitlyn MONO # 0.6 103/ul Normal 0.3-0.8 [facility] Comment on above: Performed By: #### C BC #### [facility] [address] [place], [place] [id number] Lou Caitlyn Monocytes/100 WBC (Bld) 5.2 % Normal 1.7-12.0 [facility] Comment on above: Performed By: #### C BC #### [facility] [address] [place], [place] [id number] Lou Caitlyn NEUT # 8.4 103/ul Critically high 1.4-6.5 [facility] Comment on above: Performed By: #### C BC #### [facility] [address] [place], [place] [id number] Lou Caitlyn Neutrophils/100 WBC (Bld) 79.5 % Critically high 43.0-75.0 [facility] Comment on above: Performed By: #### C BC #### [facility] [address], [place] [address] Lou Caitlyn Platelet mean volume (Bld) [Entitic vol] 8.4 fL Critically low 9.5-13.5 [facility] Comment on above: Performed By: #### C BC #### [facility] [address], [place] [address] Lou Caitlyn PLT 455 103/ul Critically high 150-450 [facility] Comment on above: Performed By: #### C BC #### [facility] [address] [id number] Lou Caitlyn RBC 6.37 106/ul Critically high 4.70-6.10 [facility] Comment on above: Performed By: #### C BC #### [facility] [address] [id number] Lou Caitlyn WBC 10.6 103/ul Normal 4.0-11.0 [facility] Comment on above: Performed By: #### C BC #### [facility] [address] [id number] Lou Caitlyn LIPID PROFILEon 09-29-2020 CHOL-HDL RATIO NORM SEE BELOW Normal [facility] Comment on above: Result Comment: 3.3 - 4.4 LOW RISK 4.4 - 7.1 AVERAGE RISK 7.1 - 11.0 MODERATE RISK >11.0 HIGH RISK Performed By: #### L IPID, CMP #### [facility] [address] [place], [place] [id number] Lou Caitlyn Cholesterol [Mass/Vol] 177 mg/dL Normal <=200 [facility] Comment on above: Performed By: #### L IPID, CMP #### [facility] [address] [place], [place] [id number] Lou Caitlyn Cholesterol in HDL [Mass/Vol] 60 mg/dL Normal [facility] Comment on above: Performed By: #### L IPID, CMP #### [facility] [address], [place] [address] Lou Caitlyn Cholesterol in LDL [Mass/Vol] 93.2 mg/dL Normal [facility] Comment on above: Performed By: #### L IPID, CMP #### [facility] [address] [address] Lou Caitlyn Cholesterol.total/Ch olesterol in HDL [Mass ratio] 3.0 {ratio} Normal [facility] Comment on above: Performed By: #### L IPID, CMP #### [facility] [address] [address] Lou Caitlyn HDL NORMAL > or = 60 mg/dl - LOW CARDIOVASCULAR RISK <40 mg/dl - HIGH CARDIOVASCULAR RISK Normal [facility] Comment on above: Performed By: #### L IPID, CMP #### [facility] [address] [address] Lou Caitlyn LDL CALC NORMAL SEE BELOW Normal [facility] Comment on above: Result Comment: <100 mg/dl OPTIMAL 100 - 129 mg/dl NEAR OR ABOVE OPTIMAL 130 - 159 mg/dl BORDERLINE HIGH 160 - 189 mg/dl HIGH >190 mg/dl VERY HIGH Performed By: #### L IPID, CMP #### [facility] [address] [place] [address] Lou Caitlyn Triglyceride [Mass/Vol] 119 mg/dL Normal <=150 [facility] Comment on above: Performed By: #### L IPID, CMP #### [facility] [address] [place] [address] Lou Caitlyn VLDL CALC 23.8 mg/dL Normal [facility] Comment on above: Performed By: #### L IPID, CMP #### [facility] [address] [id number] Lou Caitlyn PROF 14(COMP METB)on 021 Albumin [Mass/Vol] 4.0 g/dL Normal 3.5-5.0 [facility] Comment on above: Performed By: #### L IPID, CMP #### [facility] [address] [place] [address] Lou Caitlyn Albumin/Globulin [Mass ratio] 1.3 {ratio} Normal [facility] Comment on above: Performed By: #### L IPID, CMP #### [facility] [address] [place] [address] Lou Caitlyn ALP [Catalytic activity/Vol] 63 U/L Normal 38-126 [facility] Comment on above: Performed By: #### L IPID, CMP #### [facility] [address] [address] Lou Caitlyn ALT [Catalytic activity/Vol] 36 U/L Normal 21-72 [facility] Comment on above: Performed By: #### L IPID, CMP #### [facility] [address] [address] Lou Caitlyn Anion gap [Moles/Vol] 8.7 mmol/L Normal [facility] Comment on above: Performed By: #### L IPID, CMP #### [facility] [address] [address] Lou Caitlyn AST [Catalytic activity/Vol] 25 U/L Normal 17-59 [facility] Comment on above: Performed By: #### L IPID, CMP #### [facility] [address] [address] Lou Caitlyn Bilirubin [Mass/Vol] 0.8 mg/dL Normal 0.2-1.3 [facility] Comment on above: Performed By: #### L IPID, CMP #### [facility] [address] [address] Lou Caitlyn Calcium [Mass/Vol] 8.7 mg/dL Normal 8.4-10.2 [facility] Comment on above: Performed By: #### L IPID, CMP #### [facility] [address] [address] Lou Caitlyn Chloride [Moles/Vol] 102 mmol/L Normal 98-107 [facility] Comment on above: Performed By: #### L IPID, CMP #### [facility] [address] [address] Lou Caitlyn CO2 [Moles/Vol] 34.6 mmol/L Critically high 22.0-30.0 [facility] Comment on above: Performed By: #### L IPID, CMP #### [facility] [address] [address] Lou Caitlyn Creatinine [Mass/Vol] 1.06 mg/dL Normal 0.66-1.25 [facility] Comment on above: Performed By: #### L IPID, CMP #### [facility] [address] [place] [address] Lou Caitlyn EGFR-AF GERMAN >60 Normal >=60 [facility] Comment on above: Performed By: #### L IPID, CMP #### [facility] [address] [address] Lou Caitlyn EGFR-NON AF GERMAN >60 Normal >=60 [facility] Comment on above: Performed By: #### L IPID, CMP #### [facility] [address] [place] [address] Lou Caitlyn Globulin (S) [Mass/Vol] 3.1 g/dL Normal [facility] Comment on above: Performed By: #### L IPID, CMP #### [facility] [address] [place] [address] Lou Caitlyn Glucose [Mass/Vol] 96 mg/dL Normal 74-106 [facility] Comment on above: Performed By: #### L IPID, CMP #### [facility] [address] [place] [address] Lou Caitlyn Potassium [Moles/Vol] 4.3 mmol/L Normal 3.4-5.0 [facility] Comment on above: Performed By: #### L IPID, CMP #### [facility] [address] [place] [address] Lou Caitlyn Protein [Mass/Vol] 7.1 g/dL Normal 6.1-8.2 [facility] Comment on above: Performed By: #### L IPID, CMP #### [facility] [address] [place] [address] Lou Caitlyn Sodium [Moles/Vol] 141 mmol/L Normal 137-145 [facility] Comment on above: Performed By: #### L IPID, CMP #### [facility] [address] [place] [address] Lou Caitlyn Urea nitrogen [Mass/Vol] 17.0 mg/dL Normal 9.0-20.0 [facility] Comment on above: Performed By: #### L IPID, CMP #### [facility] [address], [place] [address] Lou Brady Urea nitrogen/Creatinine [Mass ratio] 16.0 mg/mg Normal [facility] Comment on above: Performed By: #### L IPID, CMP #### [facility] [address], [place] [address] Lou Brady Vital Signs Date Time Vital Sign Value Performing Clinician Facility 05-18-2024 09:39-0400 Body height 177.8 cm [facility] 05-18-2024 09:39-0400 Body mass index (BMI) [Ratio] 26.6 kg/m2 [facility] 05-18-2024 09:39-0400 Body weight 84.02 kg [facility] 05-18-2024 09:39-0400 Diastolic blood pressure 78 mm[Hg] [facility] 05-18-2024 09:39-0400 Heart rate 98 /min [facility] 05-18-2024 09:39-0400 Respiratory rate 12 /min [facility] 05-18-2024 09:39-0400 Systolic blood pressure 130 mm[Hg] [facility] 04-17-2024 09:12-0500 Body mass index (BMI) [Ratio] 28.08 kg/m2 Annie Abreu APRN.[employer] Work Phone: [facility] 04-17-2024 09:12-0500 Body temperature 97.81 [degF] Annie Abreu APRN.[employer] Work Phone: [facility] 04-17-2024 09:12-0500 Body weight 85 kg Annie Abreu APRN.[employer] Work Phone: [facility] 04-17-2024 09:12-0500 Diastolic blood pressure 66 mm[Hg] Annie Abreu APRN.[employer] Work Phone: [facility] 04-17-2024 09:12-0500 Heart rate 74 /min Annie Abreu 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 MANAGER.[employer] Work Phone: [facility] 04-17-2024 09:12-0500 Respiratory rate 18 /min Annie Abreu SCHOOL LUNCH MANAGER.[employer] Work Phone: [facility] 04-17-2024 09:12-0500 SaO2% (BldA) [Mass fraction] 99 % Annie Abreu 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 MANAGER.[employer] Work Phone: [facility] 04-17-2024 09:12-0500 Systolic blood pressure 126 mm[Hg] Annie Abreu SCHOOL LUNCH MANAGER.[employer] Work Phone: [facility] 01-26-2024 11:17-0500 Body mass index (BMI) [Ratio] 28.64 kg/m2 Bryce Ventura MD Work Phone: [facility] 01-26-2024 11:17-0500 Body temperature 97.81 [degF] Bryce Ventura MD Work Phone: [facility] 01-26-2024 11:17-0500 Body weight 86.7 kg Bryce Ventura MD Work Phone: [facility] 01-26-2024 11:17-0500 Diastolic blood pressure 63 mm[Hg] Bryce Ventura MD Work Phone: [facility] 01-26-2024 11:17-0500 Heart rate 86 /min Bryce Ventura MD Work Phone: [facility] 01-26-2024 11:17-0500 Respiratory rate 18 /min Bryce Ventura MD Work Phone: [facility] 01-26-2024 11:17-0500 SaO2% (BldA) [Mass fraction] 100 % Bryce Ventura MD Work Phone: [facility] 01-26-2024 11:17-0500 Systolic blood pressure 136 mm[Hg] Bryce Ventura MD Work Phone: [facility] 11-03-2023 11:11-0400 Body mass index (BMI) [Ratio] 28.21 kg/m2 Bryce Ventura MD Work Phone: [facility] 11-03-2023 11:11-0400 Body temperature 97.81 [degF] Bryce Ventura MD Work Phone: [facility] 11-03-2023 11:11-0400 Body weight 85.4 kg Bryce Ventura MD Work Phone: [facility] Comment on above: Shoes on 11-03-2023 11:11-0400 Diastolic blood pressure 56 mm[Hg] Bryce Ventura MD Work Phone: [facility] 11-03-2023 11:11-0400 Heart rate 76 /min Bryce Ventura MD Work Phone: [facility] 11-03-2023 11:11-0400 Respiratory rate 20 /min Bryce Ventura MD Work Phone: [facility] 11-03-2023 11:11-0400 SaO2% (BldA) [Mass fraction] 100 % Bryce Ventura MD Work Phone: [facility] Comment on above: RA 11-03-2023 11:11-0400 Systolic blood pressure 132 mm[Hg] Bryce Ventura MD Work Phone: [facility] 08-11-2023 09:23-0400 Body mass index (BMI) [Ratio] 27.74 kg/m2 Treva Hernández MD Work Phone: [facility] 08-11-2023 09:23-0400 Body temperature 98.29 [degF] Treva Hernández MD Work Phone: [facility] 08-11-2023 09:23-0400 Body weight 84 kg Treva Hernández MD Work Phone: [facility] 08-11-2023 09:23-0400 Diastolic blood pressure 71 mm[Hg] Treva Hernández MD Work Phone: [facility] Comment on above: Left arm sitting 08-11-2023 09:23-0400 Heart rate 72 /min Treva Hernández MD Work Phone: [facility] 08-11-2023 09:23-0400 Respiratory rate 18 /min Treva Hernández MD Work Phone: [facility] 08-11-2023 09:23-0400 SaO2% (BldA) [Mass fraction] 100 % Treva Hernández MD Work Phone: [facility] 08-11-2023 09:23-0400 Systolic blood pressure 135 mm[Hg] Treva Hernández MD Work Phone: [facility] Comment on above: Left arm sitting 07-19-2023 10:40-0400 Body height 177.8 cm [facility] 07-19-2023 10:40-0400 Body mass index (BMI) [Ratio] 26.2 kg/m2 [facility] 07-19-2023 10:40-0400 Body weight 83 kg [facility] 07-19-2023 10:40-0400 Diastolic blood pressure 68 mm[Hg] [facility] 07-19-2023 10:40-0400 Heart rate 86 /min [facility] 07-19-2023 10:40-0400 SaO2% (BldA) [Mass fraction] 97 % [facility] 07-19-2023 10:40-0400 Systolic blood pressure 122 mm[Hg] [facility] 07-14-2023 09:33-0400 Body mass index (BMI) [Ratio] 27.58 kg/m2 Kun Mattson APRN.[employer] Work Phone: [facility] 07-14-2023 09:33-0400 Body temperature 98.29 [degF] Kun Mattson APRN.[employer] Work Phone: [facility] 07-14-2023 09:33-0400 Body weight 83.5 kg Kun Mattson APRN.[employer] Work Phone: [facility] Comment on above: shoes on 07-14-2023 09:33-0400 Diastolic blood pressure 67 mm[Hg] Kun Mattson APRN.[employer] Work Phone: [facility] 07-14-2023 09:33-0400 Heart rate 79 /min Kun Mattson APRN.[employer] Work Phone: [facility] 07-14-2023 09:33-0400 Respiratory rate 18 /min Kun Mattson APRN.[employer] Work Phone: [facility] 07-14-2023 09:33-0400 SaO2% (BldA) [Mass fraction] 100 % Kun Mattson APRN.[employer] Work Phone: [facility] 07-14-2023 09:33-0400 Systolic blood pressure 135 mm[Hg] Kun Mattson APRN.[employer] Work Phone: [facility] 06-16-2023 08:53-0400 Body mass index (BMI) [Ratio] 27.59 kg/m2 Annie Abreu APRN.[employer] Work Phone: [facility] 06-16-2023 08:53-0400 Body temperature 97.2 [degF] Annie Abreu APRN.[employer]GER [employer] Work Phone: [facility] 06-16-2023 08:53-0400 Body weight 83.52 kg Annie Abreu APRN.[employer] Work Phone: [facility] Comment on above: shoes on 06-16-2023 08:53-0400 Diastolic blood pressure 70 mm[Hg] Annie Abreu APRN.[employer] Work Phone: [facility] 06-16-2023 08:53-0400 Heart rate 67 /min Annie Abreu APRN.[employer] Work Phone: [facility] 06-16-2023 08:53-0400 Respiratory rate 18 /min Annie Abreu APRN.[employer] Work Phone: [facility] 06-16-2023 08:53-0400 SaO2% (BldA) [Mass fraction] 100 % Annie Lois SCHOOL LUNCH MANAGER.[employer] Work Phone: [facility] 06-16-2023 08:53-0400 Systolic blood pressure 136 mm[Hg] Annie Lois SCHOOL LUNCH MANAGER.[employer] Work Phone: [facility] 05-19-2023 10:45-0400 Body height 174 cm Hannah Lyons RN Work Phone: [facility] 05-19-2023 10:17-0400 Body temperature 97.7 [degF] Annie Lois SCHOOL LUNCH MANAGER.[employer]GER [employer] Work Phone: [facility] 05-19-2023 10:17-0400 Body weight 83.8 kg Annielisa Abreu SCHOOL LUNCH MANAGER.[employer]GER [employer] Work Phone: [facility] 05-19-2023 10:17-0400 Diastolic blood pressure 66 mm[Hg] Annie Lois SCHOOL LUNCH MANAGER.[employer]GER [employer] Work Phone: [facility] 05-19-2023 10:17-0400 Heart rate 74 /min Annie Lois SCHOOL LUNCH MANAGER.[employer]GER [employer] Work Phone: [facility] 05-19-2023 10:17-0400 Respiratory rate 18 /min Annie Lois SCHOOL LUNCH MANAGER.[employer]GER [employer] Work Phone: [facility] 05-19-2023 10:17-0400 SaO2% (BldA) [Mass fraction] 99 % Annie Lois SCHOOL LUNCH MANAGER.[employer]GER [employer] Work Phone: [facility] 05-19-2023 10:17-0400 Systolic blood pressure 125 mm[Hg] Annie Lois SCHOOL LUNCH MANAGER.[employer]GER [employer] Work Phone: [facility] 03-24-2023 09:49-0500 Body temperature 97.5 [degF] Annie Lois SCHOOL LUNCH MANAGER.[employer]GER [employer] Work Phone: [facility] 03-24-2023 09:49-0500 Body weight 83.9 kg Annie Lois SCHOOL LUNCH MANAGER.[employer]GER [employer] Work Phone: [facility] 03-24-2023 09:49-0500 Diastolic blood pressure 71 mm[Hg] Annie Abreu SCHOOL LUNCH MANAGER.[employer]GER [employer] Work Phone: [facility] 03-24-2023 09:49-0500 Heart rate 72 /min Annie Abreu SCHOOL LUNCH MANAGER.[employer]GER [employer] Work Phone: [facility] 03-24-2023 09:49-0500 Respiratory rate 18 /min Annie Abreu SCHOOL LUNCH MANAGER.[employer]GER [employer] Work Phone: [facility] 03-24-2023 09:49-0500 SaO2% (BldA) [Mass fraction] 100 % Annie Abreu SCHOOL LUNCH MANAGER.[employer]GER [employer] Work Phone: [facility] 03-24-2023 09:49-0500 Systolic blood pressure 142 mm[Hg] Annie Abreu SCHOOL LUNCH MANAGER.[employer]GER [employer] Work Phone: [facility] 01-27-2023 11:13-0500 Body height 175.3 cm Annie Abreu SCHOOL LUNCH MANAGER.[employer]GER [employer] Work Phone: [facility] 01-27-2023 11:13-0500 Body temperature 98.1 [degF] Annie Abreu SCHOOL LUNCH MANAGER.[employer] P[employer]GER [employer] Work Phone: [facility] 01-27-2023 11:13-0500 Body weight 85.3 kg Annie Abreu SCHOOL LUNCH MANAGER.[employer]GER [employer] Work Phone: [facility] 01-27-2023 11:13-0500 Diastolic blood pressure 71 mm[Hg] Annie Abreu SCHOOL LUNCH MANAGER.[employer]GER [employer] Work Phone: [facility] 01-27-2023 11:13-0500 Heart rate 72 /min Annie Abreu SCHOOL LUNCH MANAGER.[employer]GER [employer] Work Phone: [facility] 01-27-2023 11:13-0500 Respiratory rate 15 /min Annie Abreu SCHOOL LUNCH MANAGER.[employer]GER [employer] Work Phone: [facility] 01-27-2023 11:13-0500 SaO2% (BldA) [Mass fraction] 99 % Annie Abreu APRN.[employer] P[employer]GER [employer] Work Phone: [facility] 01-27-2023 11:13-0500 Systolic blood pressure 135 mm[Hg] Annie Abreu APRN.[employer] P[employer]GER [employer] Work Phone: [facility] 12-02-2022 11:50-0400 Diastolic blood pressure 70 mm[Hg] Hannah Lyons RN Work Phone: [facility] 12-02-2022 11:50-0400 Systolic blood pressure 136 mm[Hg] Hannah Lyons RN Work Phone: [facility] 10-07-2022 10:55-0400 Body temperature 97.39 [degF] Sheryl Param PA-C Work Phone: [facility] 10-07-2022 10:55-0400 Body weight 86.82 kg Sheryl Param PA-C Work Phone: [facility] 10-07-2022 10:55-0400 Diastolic blood pressure 65 mm[Hg] Sheryl Param PA-C Work Phone: [facility] 10-07-2022 10:55-0400 Heart rate 66 /min Sheryl Param PA-C Work Phone: [facility] 10-07-2022 10:55-0400 Respiratory rate 18 /min Sheryl Param PA-C Work Phone: [facility] 10-07-2022 10:55-0400 SaO2% (BldA) [Mass fraction] 100 % Sheryl Param PA-C Work Phone: [facility] 10-07-2022 10:55-0400 Systolic blood pressure 136 mm[Hg] Sheryl Param PA-C Work Phone: [facility] 10-06-2022 10:15-0400 Body height 177.8 cm Tigre Ball Other [employer] Other 10-06-2022 10:15-0400 Body mass index (BMI) [Ratio] 27.8 kg/m2 Tigre Ball Other [employer] [facility] 10-06-2022 10:15-0400 Body weight 87.91 kg Tigre Ball Other [employer] Other 10-06-2022 10:15-0400 Diastolic blood pressure 72 mm[Hg] Tigre Ball Other [employer] Other 10-06-2022 10:15-0400 Respiratory rate 12 /min Tigre Ball Other [employer] Other 10-06-2022 10:15-0400 Systolic blood pressure 126 mm[Hg] Tigre Ball Other [employer] Other 08-13-2022 13:50-0400 Body temperature 98.29 [degF] Annie Abreu APRN.[employer]GER [employer] Work Phone: [facility] 08-13-2022 13:50-0400 Body weight 85.41 kg Annie Abreu APRN.[employer] P[employer]GER [employer] Work Phone: [facility] 08-13-2022 13:50-0400 Diastolic blood pressure 69 mm[Hg] Annie Abreu APRN.[employer] P[employer]GER [employer] Work Phone: [facility] 08-13-2022 13:50-0400 Heart rate 79 /min Annie Abreu APRN.[employer]GER [employer] Work Phone: [facility] 08-13-2022 13:50-0400 Respiratory rate 18 /min Annie Abreu APRN.[employer] P[employer]GER [employer] Work Phone: [facility] 08-13-2022 13:50-0400 SaO2% (BldA) [Mass fraction] 99 % Annie Abreu APRN.[employer] P[employer]GER [employer] Work Phone: [facility] 08-13-2022 13:50-0400 Systolic blood pressure 132 mm[Hg] Annie Abreu APRN.[employer] P[employer]GER [employer] Work Phone: [facility] 06-17-2022 11:05-0400 Body temperature 97.7 [degF] Sheryl Param PA-C Work Phone: [facility] 06-17-2022 11:05-0400 Body weight 84.37 kg Sheryl Param PA-C Work Phone: [facility] 06-17-2022 11:05-0400 Diastolic blood pressure 66 mm[Hg] Sheryl Param PA-C Work Phone: [facility] 06-17-2022 11:05-0400 Heart rate 71 /min Sheryl Param PA-C Work Phone: [facility] 06-17-2022 11:05-0400 Respiratory rate 18 /min Sheryl Param PA-C Work Phone: [facility] 06-17-2022 11:05-0400 SaO2% (BldA) [Mass fraction] 99 % Sheryl Param PA-C Work Phone: [facility] 06-17-2022 11:05-0400 Systolic blood pressure 132 mm[Hg] Sheryl Param PA-C Work Phone: [facility] 02-25-2022 13:15-0500 Body temperature 97.7 [degF] Bryce Ventura MD Work Phone: [facility] 02-25-2022 13:15-0500 Body weight 83.6 kg Bryce Ventura MD Work Phone: [facility] 02-25-2022 13:15-0500 Diastolic blood pressure 75 mm[Hg] Bryce Ventura MD Work Phone: [facility] 02-25-2022 13:15-0500 Heart rate 79 /min Bryce Ventura MD Work Phone: [facility] 02-25-2022 13:15-0500 Respiratory rate 18 /min Bryce Ventura MD Work Phone: [facility] 02-25-2022 13:15-0500 SaO2% (BldA) [Mass fraction] 100 % Bryce Ventura MD Work Phone: [facility] 02-25-2022 13:15-0500 Systolic blood pressure 124 mm[Hg] Bryce Ventura MD Work Phone: [facility] 01-28-2022 11:26-0500 Body temperature 97.9 [degF] Meghan Graves SCHOOL LUNCH MANAGER.[employer]GER [employer] Work Phone: [facility] 01-28-2022 11:26-0500 Body weight 84.14 kg Meghan Graves SCHOOL LUNCH MANAGER.[employer]GER [employer] Work Phone: [facility] 01-28-2022 11:26-0500 Diastolic blood pressure 62 mm[Hg] Meghan Graves SCHOOL LUNCH MANAGER.[employer]GER [employer] Work Phone: [facility] 01-28-2022 11:26-0500 Heart rate 88 /min Meghan Graves SCHOOL LUNCH MANAGER.[employer] P[employer]GER [employer] Work Phone: [facility] 01-28-2022 11:26-0500 Respiratory rate 18 /min Meghan Graves SCHOOL LUNCH MANAGER.[employer] P[employer]GER [employer] Work Phone: [facility] 01-28-2022 11:26-0500 SaO2% (BldA) [Mass fraction] 100 % Meghan Arnoldes SCHOOL LUNCH MANAGER.[employer]GER [employer] Work Phone: [facility] 01-28-2022 11:26-0500 Systolic blood pressure 137 mm[Hg] Meghan Graves SCHOOL LUNCH MANAGER.[employer]GER [employer] Work Phone: [facility] 12-31-2021 11:04-0500 Body height 178.4 cm Meghan Graves SCHOOL LUNCH MANAGER.[employer]GER [employer] Work Phone: [facility] 12-31-2021 11:04-0500 Body temperature 98.2 [degF] Meghan Graves SCHOOL LUNCH MANAGER.[employer]GER [employer] Work Phone: [facility] 12-31-2021 11:04-0500 Body weight 82.56 kg Meghan Graves SCHOOL LUNCH MANAGER.[employer]GER [employer] Work Phone: [facility] 12-31-2021 11:04-0500 Diastolic blood pressure 73 mm[Hg] Meghan Graves SCHOOL LUNCH MANAGER.[employer] P[employer]GER [employer] Work Phone: [facility] 12-31-2021 11:04-0500 Heart rate 78 /min Meghan Graves SCHOOL LUNCH MANAGER.[employer]GER [employer] Work Phone: [facility] 12-31-2021 11:04-0500 Respiratory rate 18 /min Meghan Graves SCHOOL LUNCH MANAGER.[employer]GER [employer] Work Phone: [facility] 12-31-2021 11:04-0500 SaO2% (BldA) [Mass fraction] 100 % Meghan Graves SCHOOL LUNCH MANAGER.[employer]GER [employer] Work Phone: [facility] 12-31-2021 11:04-0500 Systolic blood pressure 127 mm[Hg] Meghan Graves SCHOOL LUNCH MANAGER.[employer]GER [employer] Work Phone: [facility] 11-05-2021 12:58-0400 Body height 173.9 cm Meghan Graves SCHOOL LUNCH MANAGER.WIRER PASSENGER CAR Work Phone: [facility] 11-05-2021 12:58-0400 Body temperature 98.2 [degF] Meghan Graves SCHOOL LUNCH MANAGER.WIRER PASSENGER CAR Work Phone: [facility] 11-05-2021 12:58-0400 Body weight 83.37 kg Meghan Graves SCHOOL LUNCH MANAGER.WIRER PASSENGER CAR Work Phone: [facility] 11-05-2021 12:58-0400 Diastolic blood pressure 61 mm[Hg] Meghan Graves SCHOOL LUNCH MANAGER.WIRER PASSENGER CAR Work Phone: [facility] 11-05-2021 12:58-0400 Heart rate 88 /min Meghan Graves SCHOOL LUNCH MANAGER.WIRER PASSENGER CAR Work Phone: [facility] 11-05-2021 12:58-0400 Respiratory rate 16 /min Meghan Graves SCHOOL LUNCH MANAGER.WIRER PASSENGER CAR Work Phone: [facility] 11-05-2021 12:58-0400 SaO2% (BldA) [Mass fraction] 100 % Meghan Graves SCHOOL LUNCH MANAGER.WIRER PASSENGER CAR Work Phone: [facility] 11-05-2021 12:58-0400 Systolic blood pressure 129 mm[Hg] Meghan Graves SCHOOL LUNCH MANAGER.WIRER PASSENGER CAR Work Phone: [facility] 10-08-2021 13:14-0400 Body height 173.8 cm Elizabeth Shaun SCHOOL LUNCH MANAGER.WIRER PASSENGER CAR Work Phone: [facility] 10-08-2021 13:14-0400 Body temperature 97.5 [degF] Elizabeth Shaun SCHOOL LUNCH MANAGER.WIRER PASSENGER CAR Work Phone: [facility] 10-08-2021 13:14-0400 Body weight 82.83 kg Elizabeth Shaun SCHOOL LUNCH MANAGER.WIRER PASSENGER CAR Work Phone: [facility] 10-08-2021 13:14-0400 Diastolic blood pressure 61 mm[Hg] Elizabeth Shaun SCHOOL LUNCH MANAGER.WIRER PASSENGER CAR Work Phone: [facility] 10-08-2021 13:14-0400 Heart rate 76 /min Elizabeth Shaun SCHOOL LUNCH MANAGER.WIRER PASSENGER CAR Work Phone: [facility] 10-08-2021 13:14-0400 Respiratory rate 16 /min Elizabeth Shaun SCHOOL LUNCH MANAGER.WIRER PASSENGER CAR Work Phone: [facility] 10-08-2021 13:14-0400 SaO2% (BldA) [Mass fraction] 99 % Elizabeth Shaun SCHOOL LUNCH MANAGER.WIRER PASSENGER CAR Work Phone: [facility] 10-08-2021 13:14-0400 Systolic blood pressure 127 mm[Hg] Elizabeth Shaun SCHOOL LUNCH MANAGER.WIRER PASSENGER CAR Work Phone: [facility] 09-10-2021 13:33-0400 Body height 176.6 cm Bryce Ventura MD Work Phone: [facility] 09-10-2021 13:33-0400 Body temperature 97.9 [degF] Bryce Ventura MD Work Phone: [facility] 09-10-2021 13:33-0400 Body weight 84.19 kg Bryce Ventura MD Work Phone: [facility] 09-10-2021 13:33-0400 Diastolic blood pressure 66 mm[Hg] Bryce Ventura MD Work Phone: [facility] 09-10-2021 13:33-0400 Heart rate 69 /min Bryce Ventura MD Work Phone: [facility] 09-10-2021 13:33-0400 Respiratory rate 16 /min Bryce Ventura MD Work Phone: [facility] 09-10-2021 13:33-0400 SaO2% (BldA) [Mass fraction] 99 % Bryce Ventura MD Work Phone: [facility] 09-10-2021 13:33-0400 Systolic blood pressure 130 mm[Hg] Bryce Ventura MD Work Phone: [facility] 08-11-2021 12:48-0400 Body height 176.6 cm Elizabeth Shaun SCHOOL LUNCH MANAGER.WIRER PASSENGER CAR Work Phone: [facility] 08-11-2021 12:48-0400 Body temperature 97.81 [degF] Elizabeth Shaun SCHOOL LUNCH MANAGER.WIRER PASSENGER CAR Work Phone: [facility] 08-11-2021 12:48-0400 Body weight 84.28 kg Elizabeth Shaun SCHOOL LUNCH MANAGER.WIRER PASSENGER CAR Work Phone: [facility] 08-11-2021 12:48-0400 Diastolic blood pressure 69 mm[Hg] Elizabeth Shaun SCHOOL LUNCH MANAGER.WIRER PASSENGER CAR Work Phone: [facility] 08-11-2021 12:48-0400 Heart rate 72 /min Elizabeth Shaun SCHOOL LUNCH MANAGER.WIRER PASSENGER CAR Work Phone: [facility] 08-11-2021 12:48-0400 Respiratory rate 16 /min Elizabeth Shaun SCHOOL LUNCH MANAGER.WIRER PASSENGER CAR Work Phone: [facility] 08-11-2021 12:48-0400 SaO2% (BldA) [Mass fraction] 99 % Elizabeth Dunn SCHOOL LUNCH MANAGER.WIRER PASSENGER CAR Work Phone: [facility] 08-11-2021 12:48-0400 Systolic blood pressure 115 mm[Hg] Elizabeth Dunn SCHOOL LUNCH MANAGER.WIRER PASSENGER CAR Work Phone: [facility] 07-14-2021 10:08-0400 Body height 176.6 cm Bryce Ventura MD Work Phone: [facility] 07-14-2021 10:08-0400 Body temperature 97.9 [degF] Bryce Ventura MD Work Phone: [facility] 07-14-2021 10:08-0400 Body weight 84.82 kg Bryce Ventura MD Work Phone: [facility] 07-14-2021 10:08-0400 Diastolic blood pressure 63 mm[Hg] Bryce Ventura MD Work Phone: [facility] 07-14-2021 10:08-0400 Heart rate 70 /min Bryce Ventura MD Work Phone: [facility] 07-14-2021 10:08-0400 Respiratory rate 18 /min Bryce Ventura MD Work Phone: [facility] 07-14-2021 10:08-0400 SaO2% (BldA) [Mass fraction] 100 % Bryce Ventura MD Work Phone: [facility] 07-14-2021 10:08-0400 Systolic blood pressure 130 mm[Hg] Bryce Ventura MD Work Phone: [facility] 05-21-2021 10:48-0400 Body height 176.6 cm Meghan Graves SCHOOL LUNCH MANAGER.WIRER PASSENGER CAR Work Phone: [facility] 05-21-2021 10:48-0400 Body temperature 98.1 [degF] Meghan Graves SCHOOL LUNCH MANAGER.WIRER PASSENGER CAR Work Phone: [facility] 05-21-2021 10:48-0400 Body weight 86.82 kg Meghan Graves SCHOOL LUNCH MANAGER.WIRER PASSENGER CAR Work Phone: [facility] 05-21-2021 10:48-0400 Diastolic blood pressure 74 mm[Hg] Meghan Graves APRN.WIRER PASSENGER CAR Work Phone: [facility] 05-21-2021 10:48-0400 Heart rate 73 /min Meghan Graves SCHOOL LUNCH MANAGER.WIRER PASSENGER CAR Work Phone: [facility] 05-21-2021 10:48-0400 Respiratory rate 18 /min Meghan Graves SCHOOL LUNCH MANAGER.WIRER PASSENGER CAR Work Phone: [facility] 05-21-2021 10:48-0400 SaO2% (BldA) [Mass fraction] 100 % Meghan Graves SCHOOL LUNCH MANAGER.WIRER PASSENGER CAR Work Phone: [facility] 05-21-2021 10:48-0400 Systolic blood pressure 134 mm[Hg] Meghan Graves SCHOOL LUNCH MANAGER.WIRER PASSENGER CAR Work Phone: [facility] Encounters Encounter Date Encounter Type Care Provider Facility Start: 05-18-2024 End: 05-18-2024 ambulatory [facility] Work Phone: Start: 05-18-2024 End: 05-18-2024 Encounter for general adult medical examination without abnormal findings [facility] Start: 05-18-2024 End: 05-18-2024 Patient encounter procedure [facility] Work Phone: Start: 04-17-2024 End: 04-17-2024 Chart abstracting Kaylin Lopez Research Coordinator Hematology/Oncology Comment on above: Research (PTG 1923 [address] 48) Start: 04-17-2024 End: 04-17-2024 Nursing evaluation of patient and report Hannah Lyons RN Work Phone: Hematology/Oncology Comment on above: Polycythemia vera (H CC) (Primary Dx) Start: 04-17-2024 End: 04-17-2024 Patient encounter procedure Annie Abreu APRN.WIRER PASSENGER CAR Work Phone: Hematology/Oncology Start: 04-17-2024 End: 04-17-2024 Patient entered into trial Annie Abreu APRN.WIRER PASSENGER CAR Work Phone: [facility] Start: 04-17-2024 Non-patient [facility] Work [facility]: Start: 04-17-2024 End: 04-17-2024 ambulatory Annie Abreu SCHOOL LUNCH MANAGER.WIRER PASSENGER CAR Work Phone: Hematology/Oncology Comment on above: Polycythemia vera (H CC) (Primary Dx); Research study patient Start: 02-24-2024 End: 04-17-2024 Orders Only Bryce Ventura MD Work Phone: Hematology/Oncology Comment on above: PV (polycythemia torrey a) (HCC) (Primary Dx) Start: 02-03-2024 Patient encounter status [facility] Start: 01-26-2024 End: 01-26-2024 Chart abstracting Alana Beck Research Coordinator Hematology/Oncology Comment on above: Research (PTG [address] [address]) Start: 01-26-2024 End: 01-26-2024 Nursing evaluation of patient and report Hannah Lyons RN Work Phone: Hematology/Oncology Comment on above: Polycythemia vera (H CC) (Primary Dx) Start: 01-26-2024 End: 01-26-2024 Patient encounter procedure Bryce Ventura MD Work Phone: Hematology/Oncology Start: 01-26-2024 End: 01-26-2024 ambulatory Bryce Ventura MD Work Phone: Hematology/Oncology Comment on above: Polycythemia vera (H CC) (Primary Dx) Start: 11-03-2023 End: 11-03-2023 Chart abstracting Flavio Duncan Research Coordinator Hematology/Oncology Comment on above: Research (PTG [address]) Start: 11-03-2023 End: 11-03-2023 Nursing evaluation of patient and report Hannah Lyons RN Work Phone: Hematology/Oncology Comment on above: Polycythemia vera (H CC) (Primary Dx) Start: 11-03-2023 End: 11-03-2023 Patient encounter procedure Bryce Ventura MD Work Phone: Hematology/Oncology Start: 11-03-2023 End: 11-03-2023 ambulatory Bryce Ventura MD Work Phone: Hematology/Oncology Comment on above: Polycythemia vera (H CC) (Primary Dx) Start: 08-11-2023 End: 08-11-2023 Nursing evaluation of patient and report Anaid Mabry RN Hematology/Oncology Comment on above: Polycythemia vera (H CC) (Primary Dx) Start: 08-11-2023 End: 08-11-2023 Patient encounter procedure Treva Hernández MD Work Phone: Hematology/Oncology Start: 08-11-2023 End: 08-12-2023 ambulatory Treva Hernández MD Work Phone: Hematology/Oncology Comment on above: Polycythemia vera (H CC) [D45] (Primary Dx) Start: 07-19-2023 End: 07-19-2023 ambulatory [facility] Work Phone: Start: 07-19-2023 End: 07-19-2023 Patient encounter procedure [facility] Work Phone: Start: 07-14-2023 End: 07-14-2023 Orders Only Tad Davis MD Work Phone: Hematology/Oncology Comment on above: Polycythemia vera (H CC) (Primary Dx) Start: 07-14-2023 Non-patient / Non-visit [facility] Work Phone: Start: 06-16-2023 End: 06-16-2023 Nursing evaluation of patient and report Hannah Lyons RN Work Phone: Hematology/Oncology Comment on above: Polycythemia vera (H CC) (Primary Dx) Start: 06-16-2023 End: 06-16-2023 Patient encounter procedure Annie Abreu APRN.WIRER PASSENGER CAR Work Phone: Hematology/Oncology Start: 06-16-2023 End: 06-16-2023 Patient entered into trial Annie Abreu APRN.WIRER PASSENGER CAR Work Phone: [facility] Start: 06-16-2023 Non-patient / Non-visit [facility] Work Phone: Start: 06-16-2023 End: 06-16-2023 ambulatory Annie Abreu SCHOOL LUNCH MANAGER.WIRER PASSENGER CAR Work Phone: Hematology/Oncology Comment on above: Polycythemia vera (H CC) (Primary Dx); Research study patient Start: 05-31-2023 End: 05-31-2023 ambulatory [facility] Work Phone: Start: 05-31-2023 End: 05-31-2023 Patient encounter procedure [facility] Work Phone: Start: 05-19-2023 End: 05-20-2023 ambulatory Annie Abreu SCHOOL LUNCH MANAGER.WIRER PASSENGER CAR Work Phone: Hematology/Oncology Comment on above: Polycythemia vera (H CC) (Primary Dx); Research study patient Polycythemia vera (H CC) (Primary Dx) Start: 05-19-2023 Chart abstracting Flavio garcia Research Coordinator Hematology/Oncology Comment on above: Research (PTG 1Z21 E OT Rollover to PTG 1923 C1D1 Enrollment) Start: 05-19-2023 End: 05-19-2023 Subsequent hospital visit by physician Pattie [facility] Work Phone: Radiology Comment on above: Polycythemia vera (H CC) [D45] Start: 05-19-2023 End: 05-19-2023 Patient encounter procedure Annie Abreu APRN.WIRER PASSENGER CAR Work Phone: [facility] Start: 05-19-2023 End: 05-19-2023 Patient entered into trial Annie Abreu APRN.WIRER PASSENGER CAR Work Phone: [facility] Work Phone: Start: 05-19-2023 Non-patient / [facility] Work [facility]: Start: 05-19-2023 End: [...] (HCC) (Primary Dx) Start: 03-24-2023 End: 03-24-2023 ambulatory Annie Abreu APRN.WIRER PASSENGER CAR Work Phone: Hematology/Oncology Comment on above: Polycythemia vera (H CC) (Primary Dx); Research study patient; Bilateral cold feet Start: 03-24-2023 End: 03-24-2023 Nursing evaluation of patient and report Hannah Lyons RN Work Phone: Hematology/Oncology Comment on above: Polycythemia vera (H CC) (Primary Dx) Start: 03-24-2023 End: 03-24-2023 Patient encounter procedure Annie Abreu APRN.WIRER PASSENGER CAR Work Phone: [facility] Start: 03-24-2023 End: 03-24-2023 Patient entered into trial Annie Abreu APRN.WIRER PASSENGER CAR Work Phone: [facility] Work Phone: Start: 03-22-2023 Telephone encounter Anaid Mabry RN Hematology/Oncology Comment on above: Appointment Reschedu led Start: 01-27-2023 End: 01-27-2023 ambulatory Annie Abreu APRN.WIRER PASSENGER CAR Work Phone: Hematology/Oncology Comment on above: Polycythemia vera (H CC) (Primary Dx); Research study patient Start: 01-27-2023 End: 01-27-2023 Patient encounter procedure Annie Lois DAVEYWIRER PASSENGER CAR Work Phone: [facility] Start: 01-27-2023 End: 01-27-2023 Patient entered into trial Annieyung Abreu APRN.WIRER PASSENGER CAR Work Phone: [facility] Work Phone: Start: 12-03-2022 End: 12-03-2022 ambulatory Tigre Merida Other [employer] Other Start: 12-03-2022 Office outpatient vi sit 15 minutes Tigre Merida [facility] Start: 12-03-2022 Telephone encounter Tigre COLLINS [facility] Start: 12-02-2022 End: 12-02-2022 Subsequent hospital visit by physician Pattie Gastelum Work Phone: Radiology Comment on above: PV (polycythemia torrey a) (HCC) [D45] Start: 12-02-2022 End: 12-02-2022 Nursing evaluation of patient and report Hannah Lyons RN Work Phone: Hematology/Oncology Comment on above: Polycythemia vera (H CC) (Primary Dx) Start: 10-08-2022 End: 10-08-2022 ambulatory Tigre Merida Other [facility] Other Start: 10-08-2022 Telephone encounter Tigre COLLINS [facility] Start: 10-07-2022 End: 10-07-2022 ambulatory Sheryl Virgen PA-C Work Phone: Hematology/Oncology Comment on above: Polycythemia vera (H CC) (Primary Dx) Start: 10-07-2022 End: 10-07-2022 Nursing evaluation of patient and report Hannah Lyons RN Work Phone: Hematology/Oncology Comment on above: Polycythemia vera (H CC) (Primary Dx) Start: 10-07-2022 End: 10-07-2022 Patient encounter procedure Sheryl Virgen PA-C Work Phone: [facility] Start: 10-06-2022 End: 10-06-2022 ambulatory Tigre Merida Other [facility] Other Start: 10-06-2022 Encounter for genera l adult medical examination without abnormal findings Tigre Merida [facility] Start: 10-06-2022 Periodic preventive med est patient 40-64yrs Tigre Merida [facility] Start: 09-10-2022 Telephone encounter Hannah Lyons RN Work Phone: Hematology/Oncology Comment on above: Appointment Start: 08-25-2022 Orders Only Bryce Ventura MD Work Phone: Hematology/Oncology Comment on above: Polycythemia vera (H CC) (Primary Dx) Start: 08-13-2022 End: 08-13-2022 ambulatory Annie Abreu APRN.WIRER PASSENGER CAR Work Phone: Hematology/Oncology Comment on above: Polycythemia vera (H CC) (Primary Dx); Research study patient; Dizziness Start: 08-13-2022 End: 08-13-2022 Nursing evaluation of patient and report Kyleigh Rust certified financial planner/Oncology Comment on above: Polycythemia vera (H CC) (Primary Dx) Start: 08-13-2022 End: 08-13-2022 Patient encounter procedure Annie Abreu APRN.WIRER PASSENGER CAR Work Phone: [facility] Start: 08-13-2022 End: 08-13-2022 Patient entered into trial Annie Abreu SCHOOL LUNCH MANAGER.WIRER PASSENGER CAR Work Phone: Hematology/Oncology Start: 08-09-2022 Telephone encounter Kyleigh Strong i certified financial planner/Oncology Comment on above: Returning Patient's Call Start: 06-18-2022 Orders Only Bryce Ventura MD Work Phone: Hematology/Oncology Comment on above: Polycythemia vera (H CC) (Primary Dx) Start: 06-17-2022 End: 06-17-2022 Orders Only Tad Davis MD Work Phone: Hematology/Oncology Comment on above: Polycythemia vera (H CC) (Primary Dx) Start: 06-04-2022 End: 06-04-2022 ambulatory Tigre Merida Other [facility] Other Start: 06-04-2022 Nursing evaluation o f patient and report Tigre Merida [facility] Start: 04-23-2022 Orders Only Meghan Brady PRN.WIRER PASSENGER CAR Work Phone: Hematology/Oncology Comment on above: Polycythemia [...] Start: 01-28-2022 End: 01-28-2022 ambulatory Meghan Graves SCHOOL LUNCH MANAGER.WIRER PASSENGER CAR Work Phone: Hematology/Oncology Comment on above: Polycythemia vera (H CC) (Primary Dx) Start: 01-28-2022 End: 01-28-2022 Patient encounter procedure Meghan Graves SCHOOL LUNCH MANAGER.WIRER PASSENGER CAR Work Phone: [facility] Start: 12-31-2021 End: 12-31-2021 ambulatory Meghan Graves SCHOOL LUNCH MANAGER.WIRER PASSENGER CAR Work Phone: Hematology/Oncology Comment on above: Polycythemia vera (H CC) (Primary Dx) Start: 12-31-2021 End: 12-31-2021 Patient encounter procedure Meghan Graves SCHOOL LUNCH MANAGER.WIRER PASSENGER CAR Work Phone: [facility] Start: 12-28-2021 Orders Only Meghan Graves A PRN.WIRER PASSENGER CAR Work Phone: Hematology/Oncology Comment on above: Polycythemia vera (H CC) (Primary Dx) Start: 12-03-2021 End: 12-03-2021 Nursing evaluation of patient and report Hannah Lyons RN Work Phone: Hematology/Oncology Comment on above: Polycythemia vera (H CC) (Primary Dx) Start: 12-02-2021 Orders Only Meghan Graves A PRN.WIRER PASSENGER CAR Work Phone: Hematology/Oncology Comment on above: Polycythemia vera (H CC) (Primary Dx) Start: 11-05-2021 End: 11-05-2021 ambulatory Meghan Graves SCHOOL LUNCH MANAGER.WIRER PASSENGER CAR Work Phone: Hematology/Oncology Comment on above: Polycythemia vera (H CC) (Primary Dx) Start: 11-05-2021 End: 11-05-2021 Patient encounter procedure Meghan Graves SCHOOL LUNCH MANAGER.WIRER PASSENGER CAR Work Phone: [facility] Start: 10-15-2021 Orders Only Meghan Graves RN Venkat tology/Oncology Comment on above: Polycythemia vera (H CC) (Primary Dx) Start: 10-08-2021 End: 10-08-2021 ambulatory Elizabeth Shaun HAYDEN.WIRER PASSENGER CAR Work Phone: Hematology/Oncology Comment on above: Polycythemia vera (H CC) (Primary Dx) Start: 10-08-2021 End: 10-08-2021 Nursing evaluation of patient and report Hannah Lyons RN Work Phone: Hematology/Oncology Comment on above: Polycythemia vera (H CC) (Primary Dx) Start: 10-08-2021 End: 10-08-2021 Patient encounter procedure Elizabeth Shaun SCHOOL LUNCH MANAGER.WIRER PASSENGER CAR Work Phone: [facility] Start: 09-21-2021 Orders Only Bryce Ventura MD Work Phone: Hematology/Oncology Comment on above: 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) Start: 09-17-2021 Encounter for genera l adult medical examination without abnormal findings DR TIGRE MERIDA [facility] Start: 09-11-2021 End: 09-12-[address] TIGRE MERIDA Facility:[facility]1 Start: 09-11-2021 End: 09-12-2021 Encounter for general adult medical examination without abnormal findings DR TIGRE MERIDA Facility:[facility] Start: 09-10-2021 End: 09-10-2021 Nursing evaluation of patient and report Hannah Lyons RN Work Phone: Hematology/Oncology Comment on above: Polycythemia vera (H CC) (Primary Dx) Start: 09-10-2021 End: 09-10-2021 ambulatory Bryce Ventura MD Work Phone: Hematology/Oncology Comment on above: Polycythemia vera (H CC) (Primary Dx) Start: 09-10-2021 End: 09-10-2021 Patient encounter procedure Bryce Ventura MD Work Phone: [facility] Start: 09-10-2021 End: 09-10-2021 Subsequent hospital visit by physician [facility] Work Phone: Radiology Comment on above: Splenomegaly, not el sewhere classified [R16.1] Start: 09-01-2021 Telephone encounter Hannah Lyons RN Work Phone: Hematology/Oncology Comment on above: Patient Question; Re search (PTG 1Z21/21-283) Start: 08-11-2021 End: 08-11-2021 ambulatory Elizabeth Dunn APRN.WIRER PASSENGER CAR Work Phone: Hematology/Oncology Comment on above: Polycythemia vera (H CC) (Primary Dx) Start: 08-11-2021 End: 08-11-2021 Nursing evaluation of patient and report Hannah Lyons RN Work Phone: Hematology/Oncology Comment on above: Polycythemia vera (H CC) (Primary Dx) Start: 08-11-2021 End: 08-11-2021 Patient encounter procedure Elizabeth Dunn APRN.WIRER PASSENGER CAR Work Phone: [facility] Start: 07-27-2021 Orders Only Elizabeth MORTON RN.WIRER PASSENGER CAR Work Phone: Hematology/Oncology Comment on above: Polycythemia [...] encounter procedure Bryce Ventura MD Work Phone: [facility] Start: 06-18-2021 End: 06-18-2021 Nursing evaluation of patient and report Hannah Lyons RN Work Phone: Hematology/Oncology Comment on above: Polycythemia vera (H CC) (Primary Dx) Start: 05-21-2021 End: 05-21-2021 ambulatory Meghan Graves APRN.WIRER PASSENGER CAR Work Phone: Hematology/Oncology Comment on above: Polycythemia vera (H CC) (Primary Dx) Start: 05-21-2021 End: 05-21-2021 Nursing evaluation of patient and report Hannah Lyons RN Work Phone: Hematology/Oncology Comment on above: Polycythemia vera (H CC) (Primary Dx) Start: 05-21-2021 End: 05-21-2021 Patient encounter procedure Meghan Graves APRN.WIRER PASSENGER CAR Work Phone: [facility] Start: 2021 End: 06-05-2021 Patient encounter procedure Juan William Tiffany [facility] Start: 11-09-[address] TIGRE MERIDA [facility] ty:H1 Start: 10-15-2020 End: 10-15-2020 Chart abstracting Robert Cummings MD Work Phone: Hematology/Oncology Start: 10-01-2020 End: 10-02-[address] TIGRE MERIDA Facility:[facility] Start: 09-29-2020 End: 09-30-[address] TIGRE MERIDA Facility:[facility] Procedures Date Procedure Procedure Detail Performing Clinician Start: 05-19-2023 Ct abdomen w/o contr ast material Annie Abreu APRN.WIRER PASSENGER CAR Work Phone: Start: 12-02-2022 Ct abdomen w/o contr ast material Bryce Ventura MD Work Phone: Start: 10-07-2022 Lipid 1996 panel - S gwendolyn or Plasma Hannah Lyons RN Work Phone: Start: 04-22-2022 Ct abdomen w/o contr ast material Meghan Graves APRN.WIRER PASSENGER CAR Work Phone: Start: 09-11-[address] TONY MERIDA Comment on above: Performed By: #### P [facility] #### [facility] [address] [place] [address] Dr. Roxanne Paulino Start: 09-10-2021 Ct abdomen w/o contr ast material Elizabeth Dunn APRN.WIRER PASSENGER CAR Work Phone: Start: 07-14-2021 Adult depression screening assessment Bryce Ventura MD Work Phone: Start: 02-12-2021 Adult depression screening assessment Meghan Graves APRN.WIRER PASSENGER CAR Work Phone: Start: 09-29-[address] JIMENEZ [place] Comment on above: Performed By: #### P [facility] #### [facility] [address] [place] [address] Lou Brady Plan of Treatment Date Care Activity Detail Author Start: 2039 RSV Vaccine (1 - 1-d ose 75+ series) RSV Vaccine (1 - 1-dose 75+ series) [facility] Start: 10-08-2027 Lipid 1996 panel - S gwendolyn or Plasma Lipid Screening [facility] Start: 10-08-2027 Lipid panel Lipid Screening [facility] Start: 10-08-2027 LIPID SCREEN LIPID SCREEN [facility] Start: 10-08-2027 PROSTATE CANCER SCREENING DISCUSSION PROSTATE CANCER SCREENING DISCUSSION [facility] Start: 10-08-2027 Prostate specific antigen measurement Prostate Cancer Screening Discussion [facility] Start: 04-18-2027 [facility]: [facility]-25[facility]27 [facility] Start: 11-02-2026 Diabetes Screening Diabetes [facility] Start: 09-11-2026 PROSTATE CANCER SCREENING DISCUSSION PROSTATE CANCER SCREENING DISCUSSION [facility] Start: 08-10-2026 Diabetes Screening Diabetes Screenin g [facility] Start: 07-13-2026 Diabetes Screening Diabetes Screenin g [facility] Start: 06-15-2026 Diabetes Screening Diabetes Screenin g [facility] Start: 05-18-2026 Diabetes Screening Diabetes Screenin g [facility] Start: 03-24-2026 Diabetes Screening Diabetes Screenin g [facility] Start: 01-27-2026 Diabetes Screening Diabetes Screenin g [facility] Start: 12-16-2025 PROSTATE CANCER SCREENING DISCUSSION PROSTATE CANCER SCREENING DISCUSSION [facility] Start: 12-02-2025 Diabetes Screening Diabetes Screenin g [facility] Start: 10-07-2025 DIABETES SCREEN DIABETES SCREEN [facility] Start: 08-13-2025 DIABETES SCREEN DIABETES SCREEN [facility] Start: 06-17-2025 DIABETES SCREEN DIABETES SCREEN [facility] Start: 04-22-2025 DIABETES SCREEN DIABETES SCREEN [facility] Start: 02-25-2025 DIABETES SCREEN DIABETES SCREEN [facility] Start: 01-28-2025 DIABETES SCREEN DIABETES SCREEN [facility] Start: 12-31-2024 DIABETES SCREEN DIABETES SCREEN [facility] Start: 12-03-2024 DIABETES SCREEN DIABETES SCREEN [facility] Start: 11-05-2024 DIABETES SCREEN DIABETES SCREEN [facility] Start: 10-08-2024 DIABETES SCREEN DIABETES SCREEN [facility] Start: 09-10-2024 DIABETES SCREEN DIABETES SCREEN [facility] Start: 08-11-2024 DIABETES SCREEN DIABETES SCREEN [facility] Start: 07-14-2024 DIABETES SCREEN DIABETES SCREEN [facility] Start: 07-12-2024 End: 07-13-2024 CBC W Auto Differential panel - Blood COMPLETE BLOOD COUNT AND DIFFERENTIAL Lab Routine PV (polycythemia vera) ([facility]) Expected: 07/12/2024, Expires: 07/13/2024 [facility] Work Phone: Comment on above: Expected: 07/12/2024 , Expires: 07/13/2024 Start: 07-12-2024 End: 07-13-2024 Comprehensive metabolic 2000 panel - Serum or Plasma COMPREHENSIVE METABOLIC PANEL Lab Routine PV (polycythemia vera) ([facility]) Expected: 07/12/2024, Expires: 07/13/2024 [facility] Comment on above: Expected: 07/12/2024 , Expires: 07/13/2024 Start: 07-12-2024 End: 07-13-2024 MISC SEND OUT TST 1 MISC SEND OUT TST 1 Lab Routine PV (polycythemia vera) ([facility]) Expected: 07/12/2024, Expires: 07/13/2024 [facility] Comment on above: Expected: 07/12/2024 , Expires: 07/13/2024 Start: 07-12-2024 End: 07-12-2024 Nursing evaluation of patient and report 07/12/2024 10:00 AM EDT Nurse Visit Hematology/Oncology [address] [place] [address] Hannah Lyons, ALEXANDRO [address] [place] [id number] Study Pt Hematology/Oncology Comment on above: Study Pt Start: 07-12-2024 End: 07-12-2024 ambulatory [facility] 1 Draw Station Comment on above: Study Pt Start: 06-18-2024 DIABETES SCREEN DIABETES SCREEN [facility] Start: 05-21-2024 DIABETES SCREEN DIABETES SCREEN [facility] Start: 04-19-2024 End: 04-19-2024 Nursing evaluation of patient and report 04/19/2024 2:00 PM EST Nurse Visit Hematology/Oncology [address] [place] [address] Hannah Lyons RN [address] [place] [address] Study Pt Hematology/Oncology Comment on above: Study Pt Start: 04-19-2024 End: 04-19-2024 ambulatory [facility] 1 Draw Station Comment on above: study pt Start: 01-26-2024 End: 01-26-2024 Nursing evaluation of patient and report 01/26/2024 11:00 AM EST Nurse Visit Hematology/Oncology [address] [place] [address] Hannah Lyons, ALEXANDRO [address] [place] [address] Study Pt Hematology/Oncology Comment on above: Study Pt Start: 01-26-2024 End: 01-26-2024 ambulatory [facility] 1 Draw Station Comment on above: Study Pt Start: 11-03-2023 End: 11-03-2023 Nursing evaluation of patient and report 11/03/2023 11:00 AM EDT Nurse Visit Hematology/Oncology [address] [place] [address] Hannah Lyons, ALEXANDRO [address] [place] [address] Study Pt Hematology/Oncology Comment on above: Study Pt Start: 11-03-2023 End: 11-03-2023 ambulatory [facility] 1 Draw Station Comment on above: Study Pt Start: 10-16-2023 Covid-19 Vaccine ( season) Covid-19 Vaccine () [facility] Start: 10-16-2023 Covid-19 Vaccine () Covid-19 Vaccine () [facility] Start: 10-16-2023 Influenza vaccination Influenza Vacc ine (#1) [facility] Start: 08-11-2023 End: 08-11-2023 Nursing evaluation of patient and report 08/11/2023 11:00 AM EDT Nurse Visit Hematology/Oncology [address] [place] [address] Hannah Lyons, ALEXANDRO [address] [address] Study Pt Hematology/Oncology Comment on above: Study Pt Start: 08-11-2023 End: 08-11-2023 ambulatory [facility] 1 Draw Station Comment on above: Study Pt Start: 07-14-2023 End: 07-14-2023 Nursing evaluation of patient and report 07/14/2023 9:30 AM EDT Nurse Visit Hematology/Oncology [address] [place] [address] Hannah Lyons, ALEXANDRO [address] [place] [address] STUDY PT Hematology/Oncology Comment on above: STUDY PT Start: 07-14-2023 End: 07-14-[address] [facility] [place] 1 Draw Station Comment on above: STUDY PT Start: 05-19-2023 End: 05-20-2023 MISC SEND OUT TST 1 MISC SEND OUT TST 1 Lab Routine Polycythemia rubra vera (HCC) Expected: 05/19/2023, Expires: 05/20/2023 [facility] Work Phone: Comment on above: Expected: 05/19/2023 , Expires: 05/20/2023 Start: 02-14-2023 Behavioral Health Screening Behavioral Health Screening [facility] Start: 02-14-2023 Depression Assessment Depression Ass essment [facility] Start: 10-15-2022 Covid-19 Vaccine () Covid-19 Vaccine () [facility] Start: 10-15-2022 Influenza vaccination [facility] Start: 10-07-2022 End: 10-08-2022 CBC W Auto Differential panel - Blood CBC + DIFF Lab STAT Polycythemia vera (HCC) Expected: 10/07/2022, Expires: 10/08/2022 [facility] Work Phone: Comment on above: Expected: 10/07/2022 , Expires: 10/08/2022 Start: 10-07-2022 End: 10-08-2022 CLINICAL TRIAL DRAW CLINICAL TRIAL DRAW Lab STAT Polycythemia vera (HCC) Expected: 10/07/2022, Expires: 10/08/2022 [facility] Work Phone: Comment on above: Expected: 10/07/2022 , Expires: 10/08/2022 Start: 10-07-2022 End: 10-08-2022 Comprehensive metabolic 2000 panel - Serum or Plasma COMP METABOLIC PANEL Lab STAT Polycythemia vera (HCC) Expected: 10/07/2022, Expires: 10/08/2022 [facility] Work Phone: Comment on above: Expected: 10/07/2022 , Expires: 10/08/2022 Start: 09-09-2022 End: 11-09-2022 CBC W Auto Differential panel - Blood CBC + DIFF Lab STAT Polycythemia vera (HCC) Expected: 09/09/2022 (Approximate), Expires: 11/09/2022 [facility] Work Phone: Comment on above: Expected: 09/09/2022 (Approximate), Expires: 11/09/2022 Start: 07-14-2022 Adult depression screening assessment DEPRESSION SCREENING [facility] Start: 05-20-2022 End: 07-20-2022 CBC W Auto Differential panel - Blood CBC + DIFF Lab STAT Polycythemia vera (HCC) Expected: 05/20/2022 (Approximate), Expires: 07/20/2022 [facility] Work Phone: Comment on above: Expected: 05/20/2022 (Approximate), Expires: 07/20/2022 Start: 04-22-2022 End: 04-23-2022 CBC W Auto Differential panel - Blood CBC + DIFF Lab STAT Polycythemia vera (HCC) Expected: 04/22/2022, Expires: 04/23/2022 [facility] Work Phone: Comment on above: Expected: 04/22/2022 , Expires: 04/23/2022 Start: 04-22-2022 End: 04-23-2022 CLINICAL TRIAL DRAW CLINICAL TRIAL DRAW Lab STAT Polycythemia vera (HCC) Expected: 04/22/2022, Expires: 04/23/2022 [facility] Work Phone: Comment on above: Expected: 04/22/2022 , Expires: 04/23/2022 Start: 04-22-2022 End: 04-23-2022 Comprehensive metabolic 2000 panel - Serum or Plasma COMP METABOLIC PANEL Lab STAT Polycythemia vera (HCC) Expected: 04/22/2022, Expires: 04/23/2022 [facility] Work Phone: Comment on above: Expected: 04/22/2022 , Expires: 04/23/2022 Start: 02-14-2022 DEPRESSION ASSESSMENT DEPRESSION ASS ESSMENT [facility] Start: 02-12-2022 Adult depression screening assessment DEPRESSION SCREENING [facility] Start: 01-28-2022 End: 01-29-2022 CBC W Auto Differential panel - Blood CBC + DIFF Lab STAT Polycythemia vera (HCC) Expected: 01/28/2022, Expires: 01/29/2022 [facility] Work Phone: Comment on above: Expected: 01/28/2022 , Expires: 01/29/2022 Start: 01-28-2022 End: 01-29-2022 CLINICAL TRIAL DRAW CLINICAL TRIAL DRAW Lab STAT Polycythemia vera (HCC) Expected: 01/28/2022, Expires: 01/29/2022 [facility] Work Phone: Comment on above: Expected: 01/28/2022 , Expires: 01/29/2022 Start: 01-28-2022 End: 01-29-2022 Comprehensive metabolic 2000 panel - Serum or Plasma COMP METABOLIC PANEL Lab STAT Polycythemia vera (HCC) Expected: 01/28/2022, Expires: 01/29/2022 [facility] Work Phone: Comment on above: Expected: 01/28/2022 , Expires: 01/29/2022 Start: 01-28-2022 End: 03-30-2022 Magnesium [Mass/volume] in Serum or Plasma MAGNESIUM BLD Lab Routine Polycythemia vera (HCC) Expected: 01/28/2022, Expires: 03/30/2022 [facility] Work Phone: Comment on above: Expected: 01/28/2022 , Expires: 03/30/2022 Start: 12-31-2021 End: 01-01-2022 CBC W Auto Differential panel - Blood CBC + DIFF Lab STAT Polycythemia vera (HCC) Expected: 12/31/2021, Expires: 01/01/2022 [facility] Work Phone: Comment on above: Expected: 12/31/2021 , Expires: 01/01/2022 Start: 12-31-2021 End: 01-01-2022 CLINICAL TRIAL DRAW CLINICAL TRIAL DRAW Lab STAT Polycythemia vera (HCC) Expected: 12/31/2021, Expires: 01/01/2022 [facility] Work Phone: Comment on above: Expected: 12/31/2021 , Expires: 01/01/2022 Start: 12-31-2021 End: 01-01-2022 Comprehensive metabolic 2000 panel - Serum or Plasma COMP METABOLIC PANEL Lab STAT Polycythemia vera (HCC) Expected: 12/31/2021, Expires: 01/01/2022 [facility] Work Phone: Comment on above: Expected: 12/31/2021 , Expires: 01/01/2022 Start: 11-05-2021 End: 11-06-2021 CBC W Auto Differential panel - Blood CBC + DIFF Lab STAT Polycythemia vera (HCC) Expected: 11/05/2021, Expires: 11/06/2021 [facility] Work Phone: Comment on above: Expected: 11/05/2021 , Expires: 11/06/2021 Start: 11-05-2021 End: 11-06-2021 CLINICAL TRIAL DRAW CLINICAL TRIAL DRAW Lab STAT Polycythemia vera (HCC) Expected: 11/05/2021, Expires: 11/06/2021 [facility] Work Phone: Comment on above: Expected: 11/05/2021 , Expires: 11/06/2021 Start: 11-05-2021 End: 11-06-2021 Comprehensive metabolic 2000 panel - Serum or Plasma COMP METABOLIC PANEL Lab STAT Polycythemia vera (HCC) Expected: 11/05/2021, Expires: 11/06/2021 [facility] Work Phone: Comment on above: Expected: 11/05/2021 , Expires: 11/06/2021 Start: 10-15-2021 Influenza vaccination INFLUENZA (#1) [facility] Start: 10-08-2021 End: 10-09-2021 CBC W Auto Differential panel - Blood [facility] Work Phone: Comment on above: Expected: 10/08/2021 , Expires: 10/09/2021 Start: 10-08-2021 End: 10-09-2021 CLINICAL TRIAL DRAW [facility] Work Phone: Comment on above: Expected: 10/08/2021 , Expires: 10/09/2021 Start: 10-08-2021 End: 10-09-2021 Comprehensive metabolic 2000 panel - Serum or Plasma [facility] Work Phone: Comment on above: Expected: 10/08/2021 , Expires: 10/09/2021 Start: 05-29-2021 COVID-19 VACCINE (4 - Booster for Pfizer series) COVID-19 VACCINE (4 - Booster for Pfizer series) [facility] Start: 03-25-2021 COVID-19 VACCINE (4 - Booster for Pfizer series) COVID-19 VACCINE (4 - Booster for Pfizer series) [facility] Start: 03-25-2021 COVID-19 VACCINE (4 - Pfizer series) COVID-19 VACCINE (4 - Pfizer series) [facility] Start: 02-14-2021 DEPRESSION ASSESSMENT DEPRESSION ASS ESSMENT [facility] Start: 10-15-2020 Influenza vaccination INFLUENZA (#1) [facility] Start: 2019 PROSTATE CANCER SCREENING DISCUSSION PROSTATE CANCER SCREENING DISCUSSION [facility] Start: 2014 Screening for malign ant neoplasm of colon [facility] Start: 2014 SHINGRIX VACCINE (1 of 2) SHINGRIX VACCINE (1 of 2) [facility] Start: 2009 COLOGUARD (FIT-DNA) COLOGUARD (FIT-D NA) [facility] Start: 2009 Colonoscopy COLONOSCOPY [facility] Start: 2009 COLORECTAL CANCER SCREENING COLORECTAL CANCER SCREENING [facility] Start: [address] COLONOGRAPHY [facility] Start: 2009 DIABETES SCREEN DIABETES SCREEN [facility] Start: 2009 FECAL OCCULT BLOOD FECAL OCCULT BLOO D [facility] Start: 2009 Screening for malign ant neoplasm of colon [facility] Start: [address] [facility] Start: 1999 LIPID SCREEN LIPID SCREEN [facility] Start: 1983 Pneumococcal Vaccine : 50+ (1 of 2 - PCV) Pneumococcal Vaccine: 50+ (1 of 2 - PCV) [facility] Start: 1983 SHINGRIX VACCINE (1 of 2) SHINGRIX VACCINE (1 of 2) [facility] Start: 1983 Urine microalbumin profile [facility] Start: 1982 Anxiety Screening Anxiety Screening [facility] Start: 1982 Depression Screening Depression Scre ening [facility] Start: 1982 HEPATITIS C SCREENING HEPATITIS C SC REENING [facility] Start: 1982 HIV SCREENING HIV SCREENING [facility] Start: 1982 HIV screening HIV Screening [facility] Start: 1976 Adult depression screening assessment DEPRESSION SCREENING [facility] Start: 1976 COVID-19 VACCINE (1) COVID-19 VACCIN E (1) [facility] Start: 1970 PNEUMOCOCCAL (1 - PCV) PNEUMOCOCCAL (1 - PCV) [facility] Start: 1970 Pneumococcal vaccination [facility] Start: 1964 HEPATITIS B (1 of 3 - 3-dose series) HEPATITIS B (1 of 3 - 3-dose series) [facility] Start: 1964 Hepatitis B Vaccine (1 of 3 - 3-dose series) Hepatitis B Vaccine (1 of 3 - 3-dose series) [facility] Comprehensive metabo lic 2000 panel - Serum or Plasma [facility] End: 03-24-2023 Ct abdomen w/o contrast material CT ABDOMEN WO IVCON Radiology Routine Splenomegaly, not elsewhere classified 1 Occurrences starting 02/22/2022 until 03/24/2023 [facility] Work Phone: Comment on above: 1 Occurrences starti ng 02/22/2022 until 03/24/2023 XR Chest 2 Views [facility] Immunizations Immunization Date Immunization Notes Care Provider Griselda mckenna 02-18-2023 influenza virus vaccine, unspecified formulation Treva Hernández MD Work Phone: [facility] 02-03-2022 influenza virus vaccine, split virus (incl. purified surface antigen) Tigre Merida Other [employer] Other 02-03-2022 influenza virus vaccine, unspecified formulation Hannah Lyons RN Work Phone: [facility] 01-28-2021 COVID-19 vaccine (UNSPECIFIED) Meghan Graves APRN.[employer] Work Phone: [facility] 01-23-2021 influenza, injectabl e, quadrivalent, preservative free Meghan Graves APRN.[employer] Work Phone: [facility] 05-23-2020 COVID-19 vaccine, ag e 12+ yr (PFIZER-BIONTECH - PURPLE TOP) Meghan Graves APRN.[employer] Work Phone: [facility] 05-02-2020 COVID-19 vaccine, ag e 12+ yr (PFIZER-BIONTECH - PURPLE TOP) Meghan Graves APRN.[employer] Work Phone: [facility] 12-24-2019 influenza virus vaccine, split virus (incl. purified surface antigen) Tigre Merida Other Caret Hylete Other 12-24-2019 influenza virus vaccine, unspecified formulation [facility] Payers Date Payer Category Payer Unknown [id number] 2024 Unknown [id number] 2023 Private Health Insurance [id number] 2023 Private Health Insurance [id number] 2021 Unknown [employer] PPO [id number] 2021-Present [phone] [address] [place] [address] PPO [id number] 2021 Unknown [id number] 2018 [facility] [id number] 2018-Present HMO [id number] 1964 Unknown [id number] 3 1964 Unknown [id number] 1964 Unknown [id number] 3 1964 Unknown [id number] 3 1959 Self-pay 1959 Unknown [id number] 1959 Unknown [id number] Social History Date Type Detail Facility Start: 10-15-2020 End: 07-19-2023 Tobacco smoking status NHIS Unknown if ever smoked [facility] Start: 1965 Sex Assigned At Not on file C [facility] Start: 05-11-2021 End: 12-31-2021 Exposure to SARS-CoV-2 (event) Not sure [facility] Start: 10-16-2020 Tobacco smoking stat us TXIS Never smoked tobacco [facility] Start: 10-16-2020 Tobacco use and exposure Smokeless tobacco non-user [facility] Start: 04-16-2021 End: 11-03-2023 Alcohol intake Current drinker of alcohol (finding) [facility] Start: 11-05-2021 End: 06-17-2022 Sex Assigned At Male [facility] Start: 11-05-2021 End: 06-17-2022 History of Social function [facility] National Score (1-100), lower number is lower risk 73 [facility] Start: 1965 Sex Assigned At Male F [facility] Start: 05-18-2024 Sex Male (finding) [facility] Clinical Notes 05-21-2021 to 04-17-2024 Kaylin Lopez, Research Coordinator - 04/17/2024 10:15 AM Hannah Ferguson RN - 04/17/2024 9:20 AM Jasmin Jose LPN - 04/17/2024 9:12 AM Bryce Piedra MD - 01/26/2024 11:00 AM EST Note Date & Type Note Facility 04-17-2024 Note HNO ID: [id number] Author: KAYLIN LOPEZ, Research Coordinator Service: ? Author Type: Research Type: Progress Notes Filed: 04/17/2024 10:22 Note Text: CRC 1 Documentation IRB#: [id number], [facility]# [id number], Study Title: An Extension Study to Evaluate the Long-term Safety of Rusfertide (PTG-300) in Subjects with Polycythemia Vera Informed Consent signed on 05/19/2023, prior to any study related procedures being performed that are not SOC. Pt Study #: [id number] Patient presents for Week: 48 The following research tasks have been completed per protocol: Quality of life questionnaire: Yes VS completed: Yes, by Jasmin Sherman LPN EKGs (Single): Yes Given to RN/LEO Lyons for review. Kaylin Lopez, Research Coordinator [facility] 04-17-2024 History of Presen t illness Narrative CRC 1 Documentation IRB#: [id number], [facility]# [id number], Study Title: An Extension Study to Evaluate the Long-term Safety of Rusfertide (PTG-300) in Subjects with Polycythemia Vera Informed Consent signed on 05/19/2023, prior to any study related procedures being performed that are not SOC. Pt Study #: [id number] Patient presents for Week: 48 The following research tasks have been completed per protocol: Quality of life questionnaire: Yes VS completed: Yes, by Jasmin Sherman LPN EKGs (Single): Yes Given to RN/LEO Lyons for review. Kaylin Lopez, Research Coordinator documented in this encounter [facility] 04-17-2024 Note HNO ID: [id number] Author: ANNIE ABREU APRN.[employer] Service: ? Author Type: Registered Nurse Type: Progress Notes Filed: 04/18/2024 09:37 Note Text: Summary: PT 1923/24-180 Week 48 visit Title:An Extension Study to Evaluate the Long-term Safety of Rusfertide (PTG-300) in Subjects with Polycythemia Vera Consent expiration 04/13/2024 Screening date: 05/19/2023 Subject#: [id number] PT 1Z21: Week 1 02/26/2021. EOT 05/19/2023. Rolled over to PT 192 on 05/19/2023. Week 0: 05/19/2023 PTG-300 45 mg SC weekly Week 4: 06/16/2023 Maintain dosing Week 8+: 07/14/2023 Maintain dosing Patient is here today for Week 48 VISIT for the PTG 192 Trial, IRB# [id number]. Patient signed Informed Consent on 05/19/2023, prior to any study related procedures. PE: Sindy Abreu [employer] Patient is a Male with PV. Patient is willing and able to comply with the protocol for the duration of the study including undergoing treatment and scheduled visits and examinations. Male patients must always use a condom during and up to 90 days after the last dose of PTG-300 or rusfertide. Pt here with his . No new complaints or signs/symptoms with study medication. Pt denies any symptoms or concerns with injection sites. Pt states he no longer experiences redness or swelling at the injection sites. Pt to maintain dosing at 45 mg SC weekly of PTG-300. Pt had COVID-19 infection over and took a course of Paxlovid. Pt saw his local clock smith 6-8 weeks ago and got a prescription for a topical antifungal topical cream for his fingernails that he has not started yet. Reviewed his medications and updated the grid. Pt leaving for [place] tomorrow for one week and will be travelling with the study medication since he doses on Fridays. First Visit May 19, 2023: Patient does continue to meet eligibility to proceed with therapy Subsequent Visit April 17, 2024: Patient does continue to meet parameters to proceed with therapy Concomitant medications reviewed per protocol: yes Changes per patient: Yes, Med grid updated Quality of life questionnaire completed per protocol: Yes Clinical trial labs completed per protocol: Yes Vitals completed per protocol: Yes ECO EKG: completed by Magda Zhou QTcF 425 ms. Spleen: 0 cm MPN-SAF (MPN-10) TSS: 04/17/2024 Perameter Score (0 if absent to 10 [...] 0 Enrique WILLINGHAM et alJ Clin Oncol 2012;30:3719-2351. PAST MEDICAL HISTORY Diagnosis Date Status/Active Issues [...] cokes. Denies recreational drug use. 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 (1 ) Phlebotomies: 11/14/2020 500 mL removed 12/16/2020 500 mL removed 12/26/2020 250 mL removed 01/16/2021 500 mL removed 02/05/2021 500 mL removed 02/20/2021 500 mL removed Allergies: Bactrim Current Outpatient Medications Medication Sig Indication Start Date Stop date: KRILL OIL ORAL 2 caps PO daily Supplement/health 10/2020 Tylenol 1 gram PO TID PRN Headaches 03/02/2021 multivitamin with minerals (ONE-A-DAY 50 PLUS ORAL) 1 tab PO daily Health *greater than 8 years aspirin 81 mg cap 81 mg PO daily Heart/PV 2018 Kenalog injection 60 mg IM twice a year Seasonal allergies ~1989 Opzelura 1.5% cream Apply twice daily to areas of skin with vitiligo Vitiligo 08/2022- Pt is not consistent with using Magnesium glycinate 100 mg magnesium capsule Take 2 capsules by mouth once daily PRN Supplement/muscle cramps 07/14/2023 Tumeric 500 mg capsules PO daily Health 01/2024 Hixdefrima solution (ciclopirox 8%, fluconazole 1%, terbinafine hcl 1%) Apply to affected nails every night Fungal skin infection Has not started yet Rusfe (more content not included)... [facility] 04-17-2024 History of Presen t illness Narrative Summary: PT 1923/24-180 Week 48 visit Title:An Extension Study to Evaluate the Long-term Safety of Rusfertide (PTG-300) in Subjects with Polycythemia Vera Consent expiration 04/13/2024 Screening date: 05/19/2023 Subject#: [id number] [facility] 1Z21: Week 1 02/26/2021. EOT 05/19/2023. Rolled over to [facility] 1923 on 05/19/2023. Week 0: 05/19/2023 PTG-300 45 mg SC weekly Week 4: 06/16/2023 Maintain dosing Week 8+: 07/14/2023 Maintain dosing Patient is here today for Week 48 VISIT for the PTG 1923 Trial, IRB# [id number]. Patient signed Informed Consent on 05/19/2023, prior to any study related procedures. PE: Sindy Abreu [employer] Patient is a Male with PV. Patient is willing and able to comply with the protocol for the duration of the study including undergoing treatment and scheduled visits and examinations. Male patients must always use a condom during and up to 90 days after the last dose of PTG-300 or rusfertide. Pt here with his . No new complaints or signs/symptoms with study medication. Pt denies any symptoms or concerns with injection sites. Pt states he no longer experiences redness or swelling at the injection sites. Pt to maintain dosing at 45 mg SC weekly of PTG-300. Pt had COVID-19 infection over and took a course of Paxlovid. Pt saw his local clock smith 6-8 weeks ago and got a prescription for a topical antifungal topical cream for his fingernails that he has not started yet. Reviewed his medications and updated the grid. Pt leaving for [place] tomorrow for one week and will be travelling with the study medication since he doses on Fridays. First Visit May 19, 2023: Patient does continue to meet eligibility to proceed with therapy Subsequent Visit April 17, 2024: Patient does continue to meet parameters to proceed with therapy Concomitant medications reviewed per protocol: yes Changes per patient: Yes, Med grid updated Quality of life questionnaire completed per protocol: Yes Clinical trial labs completed per protocol: Yes Vitals completed per protocol: Yes ECO EKG: completed by Magda BELL I. QTcF 425 ms. Spleen: 0 cm MPN-SAF (MPN-10) TSS: 04/17/2024 Perameter Score (0 if absent to 10 [...] 0 Enrique WILLINGHAM et alJ Clin Oncol 2012;30:6566-6097. PAST MEDICAL HISTORY Diagnosis Date Status/Active Issues [...] cokes. Denies recreational drug use. 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 (1 ) Phlebotomies: 11/14/2020 500 mL removed 12/16/2020 500 mL removed 12/26/2020 250 mL removed 01/16/2021 500 mL removed 02/05/2021 500 mL removed 02/20/2021 500 mL removed Allergies: Bactrim Current Outpatient Medications Medication Sig Indication Start Date Stop date: KRILL OIL ORAL 2 caps PO daily Supplement/health 10/2020 Tylenol 1 gram PO TID PRN Headaches 03/02/2021 multivitamin with minerals (ONE-A-DAY 50 PLUS ORAL) 1 tab PO daily Health *greater than 8 years aspirin 81 mg cap 81 mg PO daily Heart/PV 2018 Kenalog injection 60 mg IM twice a year Seasonal allergies ~1989 Opzelura 1.5% cream Apply twice daily to areas of skin with vitiligo Vitiligo 08/2022- Pt is not consistent with using Magnesium glycinate 100 mg magnesium capsule Take 2 capsules by mouth once daily PRN Supplement/muscle cramps 07/14/2023 Tumeric 500 mg capsules PO daily Health 01/2024 Hixdefrima solution (ciclopirox 8%, fluconazole 1%, terbinafine hcl 1%) Apply to affected nails every night Fungal skin infection Has not started yet Rusfertide (PTG-300) 45 mg SC weekly PV 05/19/2023 Past medications: ======== ========= amLODIPine (NORVASC) 5 mg tablet Take 5 mg by mouth once daily. HTN 10/2020 Stopped ~10/24/2022 Zithromax 500 mg po first day and 250 mg daily for 4 days Sinus congestion ~03/11/2021 Stopped 03/15/2021 Flonase 2 sprays in each nostril daily Sinus congestion ~03/11/2021 Stopped 03/15/2021 Sulfacetamide eye gtts, 10% 2 gtts in each eye for QID Eye infection ~03/11/2021 Stopped ~03/17/2021 Hydrocortiscone cream, OTC Apply to area BID Injection site reaction 03/19/2021 Stopped 2023 Paxlovid (nirmatrelvir 300 mg and ritonavir 100 mg) PO twice daily for 5 days Covid-19 infection ~12/15/2021 Stopped 12/20/2021 Cefuroxime-Axeil 500 mg PO BID x 7 days URI ~02/10/2022 Stopped ~02/18/2022 Terbinafine HCL Oral 250 mg by mouth once daily for 7 days and off for 3 weeks Fungal skin infection 07/2022 Efinaconazole 10% cream Apply 1 application to affected area once daily Fungal skin infection 07/2022 Stopped 12/2023 Meclizine 12.5 mg 2 tablets by mouth twice daily as needed dizziness 08/13/2022 Stopped 08/14/2022 Doxycycline 100 mg PO BID Pneumonia 12/03/2022 12/03/2022. Pt took only one dose. Albuterol inhaler 90 mcg/actuation 2 puffs inhaled very 6 hours PRN Pneumonia 12/04/2022 Stopped ~12/2022 Zithromax 500 mg PO day 1 and then 250 mg for 4 days Pneumonia 12/04/2022 12/08/2022 Prednisone 50 mg PO daily x 5 days Pneumonia 12/04/2022 12/08/2022 Paxlovid (nirmatrelvir 300 mg- 2 tabs and ritonavir 100 mg- 1 tab) 3 (2 and 1) tabs PO twice daily for 5 days COVID-19 infection 02/06/2024 02/10/2024 Prior PV therapy: Phlebotomies 11/2020 to present [...] Outcome: still present Toxicities per CTCAE v.5: 04/17/2024 Anemia Grade 1. RELATED to PTG-300. Start [...] injection. Drugs to treat: hydrocortisone, ice. Outcome: resolved. Pt no longer experiences erythema, swelling at injection sites. Fatigue Grade 1. UNRELATED to PTG-300. Start [...] treat: Efinaconazole 10% cream, Terbinafine. Outcome: still present General disorders and administration site conditions (abd skin tougher/thickened) Grade 1. RELATED to PTG-300. Start date: ~04/2022. Resolve date: ongoing. Drugs to treat: none. Outcome: still present Musculoskeletal and connective tissue disorder (Diastasis recti) Grade 1. UNRELATED to PTG-300. Start date: 09/2022. Resolve date: ongoing. Drugs to treat: none. Outcome: still present Hip pain, bilateral Grade 1. UNRELATED. Start date: 07/2023. Resolve date: ongoing. Drugs to treat: none. Outcome: present intermittently Knee pain, bilateral Grade 1. UNRELATED. Start date: 07/2023. Resolve date: ongoing. Drugs to treat: none. Outcome: present intermittently Infections and infestations (COVID-19 infection) Grade 2. UNRELATED. Start date: 02/06/2024. Resolve date: ~02/21/2024. Drugs to treat: Paxlovid. Outcome: resolved Resolved: Hypokalemia Grade 1. UNRELATED to PTG-300. [...] Drugs to treat: none. Outcome: resolved Returned: 12 empty cartons of 45 mg doses of PTG-300. The count is accurate. Collected and reviewed completed medication diary. Dispensed: The patient was given 12 cartons of rusfertide 45 mg each as dispensed by the pharmacy in pt's cooler with ice packs. Pt instructed to return empty cartons at next clinic visit. Dosing instructions were reviewed with the patient. Instructed pt to put empty vials and syringes in the sharps container. Pt to dispose of full sharps containers per his city's trash disposal guidelines. Pt verbalized understanding. Pt is no longer required to fill out a medication diary for weeks 48+. Pt has the folder with dosing instructions and study card. Pt offered the medication diary pages to help remember to dose but pt declined at this time. Pt currently smith the date and time on each box when he doses each time. 45 mg cartons #s: [id number] Dosing: Reviewed mixing and administration directions for the PTG-300. Discussed rotation of injection sites and to not use the same site as the previous week. Pt verbalized understanding and denied any issues with mixing or administering the study medication. Pt to self administered 45 mg PTG-300 SC injection at home on Fridays. Patient aware to call the research team [...] for 12 hours. Patient aware to RTC in 12 weeks for Week 60 visit of PTG 1923. The provider has reviewed [...] On-Call number for the On-Call Oncology Fellow ([phone]). Patient understands that this participation is voluntary and may withdrawal at any time during the trial. CAROL Zambrano, RN documented in this encounter [facility] 04-17-2024 Note HNO ID: [id number] Author: JASMIN SHERMAN LPN Service: ? Author Type: LICENSED NURSE Type: Progress Notes Filed: 04/17/2024 10:16 Note Text: Additional intake questions: Has the patient had fever, nausea, vomiting, diarrhea, constipation, fatigue for > 1 week? No Does the patient have a decreased appetite? No Does patient want to see a Retail Banker? No (yes to any of above refer patient to schedulers for dietitian appointment) ) Does patient have any new or increased numbness or tingling of extremities? No Is patient interested in fertility information? No Does patient need any prescription refills? No Does patient have an advanced directive in place? No Electronically Signed By: Jasmin Sherman LPN [facility] 04-17-2024 History of Presen t illness Narrative Additional intake questions: Has the patient had fever, nausea, vomiting, diarrhea, constipation, fatigue for > 1 week? No Does the patient have a decreased appetite? No Does patient want to see a Retail Banker? No (yes to any of above refer patient to schedulers for dietitian appointment) ) Does patient have any new or increased numbness or tingling of extremities? No Is patient interested in fertility information? No Does patient need any prescription refills? No Does patient have an advanced directive in place? No Electronically Signed By: Jasmin Sherman LPN Some elements copied from note on 01/26/2024, the elements have been updated and all reflect current decision making from today, 04/17/2024. [facility] Clinical Note Assessment and Plan In summary: Mr. Leos is a 59 year old gentleman with polycythemia vera. Problem List Polycythemia vera He has a history of erythrocytosis. He also [...] He started treatment with PTG-300 on 02/26/2021 (phase II study). Since starting he has not required phlebotomies. EOT visit was 05/19/2023 as patient elected to continue participation in rollover study w/ rusfertide, PTG 1923, which he started that same day. Dosing on PTG 1923 was initiated at 45 mg weekly despite his stable dose of 60 mg weekly on prior PTG 1Z21 study; this was due to reformulation of drug. CT abdomen completed at week 0 visit showed slightly increased splenomegaly. EKG also performed at that time notable for NSR w/ QTcB 450ms. Today (04/17/2024) is week 48 visit of PTG 1923. He continues on 45 mg weekly dosing and is tolerating it well. Hct stable - has not needed a phlebotomy since start of study. No injection reactions. Labs remain stable overall - No contraindication to continuing investigational Rusfertide today. Will get EKG today. All of Mr. Leos's questions and those of his were acknowledged and answered to apparent satisfaction. Welcomed them to please call with any questions or concerns. I spent a total of 29 minutes on the date of the service which included preparing to see the patient, [id number] patient care, completing clinical documentation, obtaining and/or reviewing separately obtained history, performing a medically appropriate examination, counseling and educating the patient/family/caregiver, ordering medications, tests, or procedures, communicating with other HCPs (not separately reported), independently interpreting results (not separately reported), communicating results to the patient/family/caregiver, and care coordination (not separately reported). Annie Abreu APRN.WIRER PASSENGER [employer] Visit Details Past Medical History Mr. Leos presents today, accompanied by his , for follow up. He reports feeling well overall and denies any new complaints or concerns, nor any changes to his MPN-related symptoms. Denies any fevers, chills, chest pain, or shortness of breath. Is eating and drinking well. Denies any knee pain today. Of note, both he and his had Covid in late January - he tested positive and started Paxlovid on 02/06/2024. He saw his clock smith ~ 7 weeks ago for routine follow-up and was prescribed a new topical medication for his fingernails which he has in his possession and is to apply at bedtime but has not yet started - he cannot recall the name of this medication but will call to let us know when they get home. This is to be used in place of efinaconazole which he is no longer taking; also notes that he still has the topical opzelura but hasn't been using it. He and his will be taking a 7 day trip to [place] later this week (Tuesday to Tuesday) and notes he will take his Rusfertide with him on the flight in a cooler with ice packs as he doses on Fridays. An inventory of his PV-related symptoms are [...] 0 Enrique WILLINGHAM et alJ Clin Oncol 2012;30:5031-4017. Review of Systems Completed and negative aside from that noted above in HPI/Interval history. Adjunct Histories PAST MEDICAL HISTORY Diagnosis [...] Never Smokeless tobacco: Never Vaping Use Vaping status: Never Used Substance Use Topics Alcohol use: Yes Drug use: Not Currently Allergies and Medications ALLERGIES Allergen Reactions Bactrim [Sulfametho* Rash TURMERIC ORAL Take 500 mg by mouth once daily. magnesium glycinate 100 mg magnesium capsule Take 2 capsules by mouth once daily. Take 2 capsules by mouth once daily in late afternoon (Patient taking differently: Take 200 mg by mouth once daily as needed. Take 2 capsules by mouth once daily in late afternoon) efinaconazole 10 % alfa Apply 1 application to affected area once daily. ruxolitinib phosphate (OPZELURA TOPICAL) Apply to affected area. KRILL OIL ORAL Take by mouth twice daily. multivitamin with minerals (ONE-A-DAY 50 PLUS ORAL) Take by mouth once daily. aspirin 81 mg cap Take by mouth once daily. Exam Vital Signs 04/17/24 0912 BP: 126/66 Pulse: 74 Resp: 18 Temp: 36.6 C (97.8 F) TempSrc: Oral SpO2: 99% Weight: 85 kg (187 lb 6.3 oz) Performance Status Karnofsky Scale:100 - Normal, no complaints, no evidence of disease. ECOG/Zubrod Performance Scale: 0- Fully active, able to carry on all pre-disease performance w/o restriction. Examination General appearance: Alert, sitting comfortably in chair in NAD Skin: No rashes or lesions to visible skin. Head: Normocephalic, atraumatic Eyes: Anicteric sclera. PERRLA, EOMI Oropharynx: MMM Lungs: CTAB, no wheezing or rhonchi Heart: RRR without murmur, gallop, or rubs. WWP. Abdomen: +BS. Abdomen soft and without tenderness. Spleen tip nor liver are palpable. Extremities: No deformities or edema. Neuro: Oriented x 3, normal gait. Sensation grossly intact. Psych: Normal insight, normal perception, normal affect. Pleasant, cooperative. Hem/Lymph: No palpable lymphoadenopathy Objective Data Labs and Imaging Reviewed and in Epic. documented in this encounter [facility] 04-17-2024 Note HNO ID: [id number] Author: ANNIE ABREU APRN.CNP Service: ? Author Type: Nurse Practitioner Type: Progress Notes Filed: 04/17/2024 10:16 Note Text: Some elements copied from note on 01/26/2024, the elements have been updated and all reflect current decision making from today, 04/17/2024. [facility] Clinical Note Assessment and Plan In summary: Mr. Leos is a 59 year old gentleman with polycythemia vera. Problem List Polycythemia vera He has a history of erythrocytosis. He also [...] He started treatment with PTG-300 on 02/26/2021 (phase II study). Since starting he has not required phlebotomies. EOT visit was 05/19/2023 as patient elected to continue participation in rollover study w/ rusfertide, PTG 1923, which he started that same day. Dosing on PTG 1923 was initiated at 45 mg weekly despite his stable dose of 60 mg weekly on prior PTG 1Z21 study; this was due to reformulation of drug. CT abdomen completed at week 0 visit showed slightly increased splenomegaly. EKG also performed at that time notable for NSR w/ QTcB 450ms. Today (04/17/2024) is week 48 visit of PTG 1923. He continues on 45 mg weekly dosing and is tolerating it well. Hct stable - has not needed a phlebotomy since start of study. No injection reactions. Labs remain stable overall - No contraindication to continuing investigational Rusfertide today. Will get EKG today. All of Mr. Leos's questions and those of his were acknowledged and answered to apparent satisfaction. Welcomed them to please call with any questions or concerns. I spent a total of 29 minutes on the date of the service which included preparing to see the patient, [id number] patient care, completing clinical documentation, obtaining and/or reviewing separately obtained history, performing a medically appropriate examination, counseling and educating the patient/family/caregiver, ordering medications, tests, or procedures, communicating with other HCPs (not separately reported), independently interpreting results (not separately reported), communicating results to the patient/family/caregiver, and care coordination (not separately reported). Annie Abreu APRN.W[employer] PASSENGER [employer] Visit Details Past Medical History Mr. Leos presents today, accompanied by his , for follow up. He reports feeling well overall and denies any new complaints or concerns, nor any changes to his MPN-related symptoms. Denies any fevers, chills, chest pain, or shortness of breath. Is eating and drinking well. Denies any knee pain today. Of note, both he and his had Covid in late January - he tested positive and started Paxlovid on 02/06/2024. He saw his clock smith ~ 7 weeks ago for routine follow-up and was prescribed a new topical medication for his fingernails which he has in his possession and is to apply at bedtime but has not yet started - he cannot recall the name of this medication but will call to let us know when they get home. This is to be used in place of efinaconazole which he is no longer taking; also notes that he still has the topical opzelura but hasn't been using it. He and his will be taking a 7 day trip to [place] later this week (Tuesday to Tuesday) and notes he will take his Rusfertide with him on the flight in a cooler with ice packs as he doses on Fridays. An inventory of his PV-related symptoms are [...] 0 Enrique WILLINGHAM et alJ Clin Oncol 2012;30:6594-8695. Review of Systems Completed and negative aside from that noted above in HPI/Interval history. Adjunct Histories PAST MEDICAL HISTORY Diagnosis Date Elevated prostate specific antigen (PSA) Hypertension REYMUNDO (obstructive sleep apnea) Polycythemia Seasonal allergic rhinitis due to pollen PAST SURGICAL HISTORY Procedure Laterality Date ARTHROSCOPY KNEE DIAGNOSTIC W/WO SYNOVIAL BX SPX Right CLAVICLE LEFT COLONOSCOPY 2014 INGUINAL HERNIA REPAIR HX TONSILLECTOMY AND ADENOIDECTOMY Family History Reviewed Including Cardiac Diseases, Psychiatric (more content not included)... [facility] 01-26-2024 Note HNO ID: [id number] Author: HANNAH LYONS RN Service: ? Author Type: Registered Nurse Type: Progress Notes Filed: 01/26/2024 18:35 Note Text: Summary: PTG 1923/24-180 Week 36 visit Title:An Extension Study to Evaluate the Long-term Safety of Rusfertide (PTG-300) in Subjects with Polycythemia Vera Consent expiration 04/13/2024 Screening date: 05/19/2023 Subject#: [id number] PTG 1Z21: Week 1 02/26/2021. EOT 05/19/2023. Rolled over to PTG 192 on 05/19/2023. Week 0: 05/19/2023 PTG-300 45 mg SC weekly Week 4: 06/16/2023 Maintain dosing Week 8+: 07/14/2023 Maintain dosing Patient is here today for Week 36 VISIT for the PTG 1923 Trial, IRB# [id number]. Patient signed Informed Consent on 05/19/2023, prior to any study related procedures. PE: Dr. Ventura Patient is a Male with [...] any symptoms or concerns with injection sites. Dr. Ventura discussed updates with clinical trial with pt and his . Pt to maintain dosing at 45 mg SC weekly of PTG-300. Pt agrees with the plan. First Visit May 19, 2023: Patient does continue to meet eligibility to proceed with therapy Subsequent Visit January 26, 2024: Patient does continue to meet parameters to proceed with therapy Concomitant medications reviewed per protocol: yes Changes per patient: No Quality of life questionnaire completed per protocol: Yes Clinical trial labs completed per protocol: Yes Vitals completed per protocol: Yes Derm exam of sun-exposed areas completed: Yes by Dr. Ventura. ECO EKG: Not required this visit Spleen: [...] 0 Enrique WILLINGHAM et alJ Clin Oncol 2012;30:0389-1913. PAST MEDICAL HISTORY Diagnosis Date Status/Active Issues [...] cokes. Denies recreational drug use. 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 [facility] 01-26-2024 History of Presen t illness Narrative Summary: [facility] 1923/24-180 Week 36 visit Title:An Extension Study to Evaluate the Long-term Safety of Rusfertide (PTG-300) in Subjects with Polycythemia Vera Consent expiration 04/13/2024 Screening date: 05/19/2023 Subject#: [id number] PT 1Z21: Week 1 02/26/2021. EOT 05/19/2023. Rolled over to [facility] 1923 on 05/19/2023. Week 0: 05/19/2023 PTG-300 45 mg SC weekly Week 4: 06/16/2023 Maintain dosing Week 8+: 07/14/2023 Maintain dosing Patient is here today for Week 36 VISIT for the PTG 1923 Trial, IRB# [id number]. Patient signed Informed Consent on 05/19/2023, prior to any study related procedures. PE: Dr. Ventura Patient is a Male with [...] any symptoms or concerns with injection sites. Dr. Ventura discussed updates with clinical trial with pt and his . Pt to maintain dosing at 45 mg SC weekly of PTG-300. Pt agrees with the plan. First Visit May 19, 2023: Patient does continue to meet eligibility to proceed with therapy Subsequent Visit January 26, 2024: Patient does continue to meet parameters to proceed with therapy Concomitant medications reviewed per protocol: yes Changes per patient: No Quality of life questionnaire completed per protocol: Yes Clinical trial labs completed per protocol: Yes Vitals completed per protocol: Yes Derm exam of sun-exposed areas completed: Yes by Dr. Ventura. ECO EKG: Not required this visit Spleen: [...] 0 Enrique WILLINGHAM et alJ Clin Oncol 2012;30:2216-2237. PAST MEDICAL HISTORY Diagnosis Date Status/Active Issues [...] cokes. Denies recreational drug use. 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 RELATED to PTG-300. Start [...] Drugs to treat: none. Outcome: still present Hip pain, bilateral Grade 1. UNRELATED. Start date: 07/2023. Resolve date: ongoing. Drugs to treat: none. Outcome: present intermittently Knee pain, bilateral Grade 1. UNRELATED. Start date: 07/2023. Resolve date: ongoing. Drugs to treat: none. Outcome: present intermittently Resolved: Hypokalemia Grade 1. UNRELATED to PTG-300. [...] Drugs to treat: none. Outcome: resolved Returned: 12 empty cartons of 45 mg doses of [...] dispose of full sharps containers per his [facility]'s trash disposal guidelines. Pt verbalized understanding. 45 mg cartons #s: [id number] Dosing: Reviewed mixing and administration directions for the PTG-300. Discussed rotation of injection sites and to not use the same site as the previous week. Pt verbalized understanding and denied any issues with mixing or administering the study medication. Pt to self administered 45 mg PTG-300 SC injection at home on Fridays. Patient aware to call the research team [...] for 12 hours. Patient aware to RTC in 12 weeks for Week 48 visit of PTG 1923. The provider has reviewed [...] On-Call number for the On-Call Oncology Fellow ([phone]). Patient understands that this participation is voluntary and may withdrawal at any time during the trial. CAROL Zambrano, RN documented in this encounter [facility] 01-26-2024 Note HNO ID: [id number] Author: ALANA BECK Research Coordinator Service: ? Author Type: Research Type: Progress Notes Filed: 01/26/2024 13:57 Note Text: CRC 1 Documentation IRB#: [id number], [facility]# [id number], Study Title: An Extension Study to Evaluate the Long-term Safety of Rusfertide (PTG-300) in Subjects with Polycythemia Vera Informed Consent signed on 05/19/2023, prior to any study related procedures being performed that are not SOC. Pt Study #: [id number] Patient presents for: Week 36 The following research tasks have been completed per protocol: Quality of life questionnaire: Yes VS completed: Not Required EKGs: Not Required Given to Bryce Ventura MD for review. Alana Beck, Research Coordinator [facility] 01-26-2024 History of Presen t illness Narrative CRC 1 Documentation IRB#: [id number], [facility]# [id number], Study Title: An Extension Study to Evaluate the Long-term Safety of Rusfertide (PTG-300) in Subjects with Polycythemia Vera Informed Consent signed on 05/19/2023, prior to any study related procedures being performed that are not SOC. Pt Study #: 504-21-001 Patient presents for: Week 36 The following research tasks have been completed per protocol: Quality of life questionnaire: Yes VS completed: Not Required EKGs: Not Required Given to Bryce Ventura MD for review. Alana Beck Research Coordinator documented in this encounter [facility] 01-26-2024 Note HNO ID: [id number] Author: JASMIN SHERMAN LPN Service: ? Author Type: LICENSED NURSE Type: Progress Notes Filed: 01/26/2024 11:17 Note Text: Additional intake questions: Has the patient had fever, nausea, vomiting, diarrhea, constipation, fatigue for > 1 week? No Does the patient have a decreased appetite? No Does patient want to see a Retail Banker? No (yes to any of above refer patient to schedulers for dietitian appointment) ) Does patient have any new or increased numbness or tingling of extremities? No Is patient interested in fertility information? No Does patient need any prescription refills? No Does patient have an advanced directive in place? No, Patient referred to [facility] Electronically Signed By: Jasmin Sherman LPN [facility] 01-26-2024 History of Presen t illness Narrative Additional intake questions: Has the patient had fever, nausea, vomiting, diarrhea, constipation, fatigue for > 1 week? No Does the patient have a decreased appetite? No Does patient want to see a Retail Banker? No (yes to any of above refer patient to schedulers for dietitian appointment) ) Does patient have any new or increased numbness or tingling of extremities? No Is patient interested in fertility information? No Does patient need any prescription refills? No Does patient have an advanced directive in place? No, Patient referred to [facility] Electronically Signed By: Jasmin Sherman LPN Some elements copied from note on 11/03/2023, the elements have been updated and all reflect current decision making from today, 01/26/2024. [facility] Clinical Note Assessment and Plan In summary: Mr. Leos is a 58 year old gentleman with polycythemia vera. Problem List Polycythemia vera He has a history of erythrocytosis. He also [...] He started treatment with PTG-300 on 02/26/2021 (phase II study). Since starting he has not required phlebotomies. He is overall doing quite well. No pain today. He did not meet with dermatology as the spots had disappeared. He has an appointment coming up for his annual skin check. Appetite has been good. Minimal injection site reaction with the larger injection. Weight is overall stable. 01/26/24 HcT today at 41.6. WBC 12.3 and platelets 823. Will require dose adjustment if HcT > 43%. Will continue to monitor per study protocol. Continue current regimen Labs in 1 month, follow up in 2 months/per study protocol. Walker Hernandez MD Fellow Visit Details Past Medical History He is here today for follow up. Overall he is feeling well and offers no new complaints. Has some bilateral hip and knee pains, worst in R knee. Has not required phlebotomy since starting on [...] 0 Enrique WILLINGHAM et alJ Clin Oncol 2012;30:[id number]. Review of Systems PAIN ASSESSMENT: Negative for history of chronic pain, or current treatment for a chronic pain condition GENERAL: No weight loss, malaise or fevers. HEENT: Positive forsignificant headaches, now resolved. No changes in hearing or vision, no nose bleeds or other nasal problems RESPIRATORY: Negative for cough, hemoptysis, wheezing or shortness of breath CARDIOVASCULAR: Negative for chest pain, leg swelling or palpitations. GI: No nausea, vomiting, or diarrhea : No history of dysuria, frequency or incontinence. MUSCULOSKELETAL: Bilateral hip and knee pains SKIN: Negative for lesions, rash, Positive for [...] Never Smokeless tobacco: Never Vaping Use Vaping status: Never Used Substance Use Topics Alcohol use: Yes Drug use: Not Currently Allergies and Medications ALLERGIES Allergen Reactions Bactrim [Sulfametho* Rash magnesium glycinate 100 mg magnesium capsule Take 2 capsules by mouth once daily. Take 2 capsules by mouth once daily in late afternoon (Patient taking differently: Take 200 mg by mouth once daily as needed. Take 2 capsules by mouth once daily in late afternoon) efinaconazole 10 % alfa Apply 1 application to affected area once daily. ruxolitinib phosphate (OPZELURA TOPICAL) Apply to affected area. KRILL OIL ORAL Take by mouth twice daily. multivitamin with minerals (ONE-A-DAY 50 PLUS ORAL) Take by mouth once daily. aspirin 81 mg cap Take by mouth once daily. Exam Vital Signs BP 136/63 Pulse 86 Temp (Src) 97.8 (Oral) Resp 18 Wt 191 lb 2.2 oz (86.7kg) SpO2 100% Performance Status Karnofsky Scale:100 - [...] Extremeties: No deformities, edema Muskuloskeletal: No joint swelling. Crepitus bilateral knees. I reviewed and agree with the assessment as documented above. SIGNATURE: Bryce Ventura MD DATE: January 30, 2024 TIME: 9:26 AM documented in this encounter [facility] 01-26-2024 Note HNO ID: [id number] Author: BRYCE VENTURA MD Service: ? Author Type: Physician Type: Progress Notes Filed: 01/30/2024 09:27 Note Text: Some elements copied from note on 11/03/2023, the elements have been updated and all reflect current decision making from today, 01/26/2024. [facility] Clinical Note Assessment and Plan In summary: Mr. Leos is a 58 year old gentleman with polycythemia vera. Problem List Polycythemia vera He has a history of erythrocytosis. He also [...] He started treatment with PTG-300 on 02/26/2021 (phase II study). Since starting he has not required phlebotomies. He is overall doing quite well. No pain today. He did not meet with dermatology as the spots had disappeared. He has an appointment coming up for his annual skin check. Appetite has been good. Minimal injection site reaction with the larger injection. Weight is overall stable. 01/26/24 HcT today at 41.6. WBC 12.3 and platelets 823. Will require dose adjustment if HcT > 43%. Will continue to monitor per study protocol. Continue current regimen Labs in 1 month, follow up in 2 months/per study protocol. Walker Hernandez MD Fellow Visit Details Past Medical History He is here today for follow up. Overall he is feeling well and offers no new complaints. Has some bilateral hip and knee pains, worst in R knee. Has not required phlebotomy since starting on [...] 0 Enrique WILLINGHAM et alJ Clin Oncol 2012;30:[id number]. Review of Systems PAIN ASSESSMENT: Negative for history of chronic pain, or current treatment for a chronic pain condition GENERAL: No weight loss, malaise or fevers. HEENT: Positive forsignificant headaches, now resolved. No changes in hearing or vision, no nose bleeds or other nasal problems RESPIRATORY: Negative for cough, hemoptysis, wheezing or shortness of breath CARDIOVASCULAR: Negative for chest pain, leg swelling or palpitations. GI: No nausea, vomiting, or diarrhea : No history of dysuria, frequency or incontinence. MUSCULOSKELETAL: Bilateral hip and knee pains SKIN: Negative for lesions, rash, Positive for [...] COLONOSCOPY 2014 INGUINAL HERNIA REPAIR HX TONSILLECTOMY AND ADENOIDECTOMY Family History Reviewed Including Cardiac Diseases, Psychiatric Diseases, AND Substance Abuse Problem: Hypertension Relation: Mother Age [...] Sister Age of Onset: (Not Specified) Problem: Parkinson?s Disease Relation: Maternal Grandmother Age of Onset: (Not Specified) Problem: Lung Cancer Relation: Paternal Grandmother Age of Onset: (Not Specified) Problem: Stroke Relation: Paternal Grandfather Age of Onset: (Not Specified) Social History Tobacco Use Smoking status: Never Smokeless tobacco: Never Vaping Use Vaping status: Never Used Substance Use Topics Alcohol use: Yes Drug use: Not Currently Allergies and Medic (more content not included)... [facility] 11-03-2023 Nurse Note Additional intake questions: Has the patient had fever, nausea, vomiting, diarrhea, constipation, fatigue for > 1 week? No Does patient have any new or increased numbness or tingling of extremities? No Is patient interested in fertility information? No Does patient need any prescription refills? No Does patient have an advanced directive in place? No, Patient refused referral to Social Work or Resource Center Electronically Signed By: Brittany Escobar RN [facility] 11-03-2023 Nurse Note Additional intake questions: Has the patient had fever, nausea, vomiting, diarrhea, constipation, fatigue for > 1 week? No Does patient have any new or increased numbness or tingling of extremities? No Is patient interested in fertility information? No Does patient need any prescription refills? No Does patient have an advanced directive in place? No, Patient refused referral to Social Work or Resource Center Electronically Signed By: Brittany Escobar RN documented in this encounter [facility] 11-03-2023 History of Presen t illness Narrative Summary: PT 1923/24-180 Week 24 visit Title:An Extension Study to Evaluate the Long-term Safety of Rusfertide (PTG-300) in Subjects with Polycythemia Vera Consent expiration 04/13/2024 Screening date: 05/19/2023 Subject#: 504-21-001 PTG 1Z21: Week 1 02/26/2021. EOT 05/19/2023. Rolled over to PT 192 on 05/19/2023. Week 0: 05/19/2023 PTG-300 45 mg SC weekly Week 4: 06/16/2023 Maintain dosing Week 8+: 07/14/2023 Maintain dosing Patient is here today for Week 24 VISIT for the PTG 1923 Trial, IRB# [id number]. Patient signed Informed Consent on 05/19/2023, prior to any study related procedures. PE: Dr. Ventura Patient is a Male with [...] symptoms or concerns with injection sites. Pt reports bilateral hip and knee pain that started about 3-4 months ago. Pt used to walk on the treadmill at a fast pace and an incline but can no longer tolerate the incline or the fast pace. Pt is able to walk without difficulties. Pt is not taking any medications for the pain. Pt plans to have his left hip and right knee looked at after the fall season because they are causing more pain. Dr. Ventura considered increasing PTG-300 today for HCT of 42.8% since previous HCT was 40.5%. After considering Hgb has been 10-11 at the 45 mg dosing and the pt's MCV remains low with last phlebotomy occurring in Feb 2021, he feels the Hgb may go below 10 with increased PTG-300 dose and will have to dose reduce back to 45 mg. Will keep PTG-300 at 45 mg weekly at this time. First Visit May 19, 2023: Patient does continue to meet eligibility to proceed with therapy Subsequent Visit November 03, 2023: Patient does continue to meet parameters [...] 0 Enrique WILLINGHAM et alJ Clin Oncol 2012;30:[id number]. PAST MEDICAL HISTORY Diagnosis Date Status/Active Issues [...] cokes. Denies recreational drug use. 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 RELATED to PTG-300. Start [...] Drugs to treat: none. Outcome: still present Hip pain, bilateral Grade 1. UNRELATED. Start date: 07/2023. Resolve date: ongoing. Drugs to treat: none. Outcome: present intermittently Knee pain, bilateral Grade 1. UNRELATED. Start date: 07/2023. Resolve date: ongoing. Drugs to treat: none. Outcome: present intermittently Resolved: Hypokalemia Grade 1. UNRELATED to PTG-300. [...] Drugs to treat: none. Outcome: resolved Returned: 12 empty cartons of 45 mg doses of [...] dispose of full sharps containers per his [facility]'s trash disposal guidelines. Pt verbalized understanding. 45 mg cartons #s: [id number] Dosing: Reviewed mixing and administration directions for the PTG-300. Discussed rotation of injection sites and to not use the same site as the previous week. Pt verbalized understanding and denied any issues with mixing or administering the study medication. Pt to self administered 45 mg PTG-300 SC injection at home on Fridays. Patient aware to call the research team [...] for 12 hours. Patient aware to RTC in 12 weeks for Week 36 visit of PTG 1923. The provider has reviewed [...] On-Call number for the On-Call Oncology Fellow ([phone]). Patient understands that this participation is voluntary and may withdrawal at any time during the trial. CAROL Zambrano, RN documented in this encounter [facility] 11-03-2023 History of Presen t illness Narrative Some elements copied from note on 02/25/2022, the elements have been updated and all reflect current decision making from today, 11/03/2023. [facility] Clinical Note Assessment and Plan In summary: Mr. Leos is a 58 year old gentleman with polycythemia vera. Problem List Polycythemia vera He has a history of erythrocytosis. He also [...] He started treatment with PTG-300 on 02/26/2021 (phase II study). Since starting he has not required phlebotomies. He is overall doing quite well. No pain today. He did not meet with dermatology as the spots had disappeared. He has an appointment coming up for his annual skin check. Appetite has been good. Minimal injection site reaction with the larger injection. Weight is overall stable. HcT today 42.8%. Will require dose increase if HcT > 43%. Will continue to monitor per study protocol. Labs in 1 month, follow up in 2 months/per study protocol. Shireen Talamantes MD, MPH, FACP PGY-V Hematology/Oncology Fellow Pager: [phone] Date: 11/03/2023 Time: 11:48 AM Visit Details Past Medical History He is here today for follow up. Overall he is feeling well and offers no new complaints. Has some bilateral hip and knee pains, worst in R knee. Has not required phlebotomy since starting on [...] 0 Enrique WILLINGHAM et alJ Clin Oncol 2012;30:2948-6525. Review of Systems PAIN ASSESSMENT: Negative for history of chronic pain, or current treatment for a chronic pain condition GENERAL: No weight loss, malaise or fevers. HEENT: Positive forsignificant headaches, now resolved. No changes in hearing or vision, no nose bleeds or other nasal problems RESPIRATORY: Negative for cough, hemoptysis, wheezing or shortness of breath CARDIOVASCULAR: Negative for chest pain, leg swelling or palpitations. GI: No nausea, vomiting, or diarrhea : No history of dysuria, frequency or incontinence. MUSCULOSKELETAL: Bilateral hip and knee pains SKIN: Negative for lesions, rash, Positive for [...] Never Smokeless tobacco: Never Vaping Use Vaping status: Never Used Substance Use Topics Alcohol use: Yes Drug use: Not Currently Allergies and Medications ALLERGIES Allergen Reactions Bactrim [Sulfametho* Rash magnesium glycinate 100 mg magnesium capsule Take 2 capsules by mouth once daily. Take 2 capsules by mouth once daily in late afternoon (Patient taking differently: Take 200 mg by mouth once daily as needed. Take 2 capsules by mouth once daily in late afternoon) efinaconazole 10 % alfa Apply 1 application to affected area once daily. ruxolitinib phosphate (OPZELURA TOPICAL) Apply to affected area. KRILL OIL ORAL Take by mouth twice daily. multivitamin with minerals (ONE-A-DAY 50 PLUS ORAL) Take by mouth once daily. aspirin 81 mg cap Take by mouth once daily. Exam Vital Signs BP 132/56 Pulse 76 Temp (Src) 97.8 (Oral) Resp 20 Wt 188 lb 4.4 oz (85.4kg) SpO2 100[RA]% Performance Status Karnofsky Scale:100 - Normal, no [...] Extremeties: No deformities, edema Muskuloskeletal: No joint swelling. Crepitus bilateral knees. Objective Data Labs and Imaging Reviewed outside records provided prior to this visit and those in [facility]. I reviewed and agree with the assessment as documented above. SIGNATURE: Bryce Ventura MD DATE: November 03, 2023 TIME: 2:22 PM documented in this encounter [facility] 11-03-2023 Note HNO ID: [id number] Author: HANNAH LYONS, ALEXANDRO Service: ? Author Type: Registered Nurse Type: Progress Notes Filed: 11/03/2023 14:03 Note Text: Summary: PTG 1923/24-180 Week 24 visit Title:An Extension Study to Evaluate the Long-term Safety of Rusfertide (PTG-300) in Subjects with Polycythemia Vera Consent expiration 04/13/2024 Screening date: 05/19/2023 Subject#: 504-21-001 PTG 1Z21: Week 1 02/26/2021. EOT 05/19/2023. Rolled over to PTG 1923 on 05/19/2023. Week 0: 05/19/2023 PTG-300 45 mg SC weekly Week 4: 06/16/2023 Maintain dosing Week 8+: 07/14/2023 Maintain dosing Patient is here today for Week 24 VISIT for the PTG 1923 Trial, IRB# [id number]. Patient signed Informed Consent on 05/19/2023, prior to any study related procedures. PE: Dr. Ventura Patient is a Male with [...] symptoms or concerns with injection sites. Pt reports bilateral hip and knee pain that started about 3-4 months ago. Pt used to walk on the treadmill at a fast pace and an incline but can no longer tolerate the incline or the fast pace. Pt is able to walk without difficulties. Pt is not taking any medications for the pain. Pt plans to have his left hip and right knee looked at after the fall season because they are causing more pain. Dr. Ventura considered increasing PTG-300 today for HCT of 42.8% since previous HCT was 40.5%. After considering Hgb has been 10-11 at the 45 mg dosing and the pt's MCV remains low with last phlebotomy occurring in Feb 2021, he feels the Hgb may go below 10 with increased PTG-300 dose and will have to dose reduce back to 45 mg. Will keep PTG-300 at 45 mg weekly at this time. First Visit May 19, 2023: Patient does continue to meet eligibility to proceed with therapy Subsequent Visit November 03, 2023: Patient does continue to meet parameters [...] 0 Enrique WILLINGHAM et alJ Clin Oncol 2012;30:[id number]. PAST MEDICAL HISTORY Diagnosis Date Status/Active Issues [...] cokes. Denies recreational drug use. 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 [facility] 11-03-2023 Note HNO ID: [id number] Author: BRYCE VENTURA MD Service: ? Author Type: Physician Type: Progress Notes Filed: 11/03/2023 14:22 Note Text: Some elements copied from note on 02/25/2022, the elements have been updated and all reflect current decision making from today, 11/03/2023. [facility] Clinical Note Assessment and Plan In summary: Mr. Leos is a 58 year old gentleman with polycythemia vera. Problem List Polycythemia vera He has a history of erythrocytosis. He also [...] He started treatment with PTG-300 on 02/26/2021 (phase II study). Since starting he has not required phlebotomies. He is overall doing quite well. No pain today. He did not meet with dermatology as the spots had disappeared. He has an appointment coming up for his annual skin check. Appetite has been good. Minimal injection site reaction with the larger injection. Weight is overall stable. HcT today 42.8%. Will require dose increase if HcT > 43%. Will continue to monitor per study protocol. Labs in 1 month, follow up in 2 months/per study protocol. Shireen Talamantes MD, MPH, FACP PGY-V Hematology/Oncology Fellow Pager: [phone] Date: 11/03/2023 Time: 11:48 AM Visit Details Past Medical History He is here today for follow up. Overall he is feeling well and offers no new complaints. Has some bilateral hip and knee pains, worst in R knee. Has not required phlebotomy since starting on [...] 0 Enrique WILLINGHAM et alJ Clin Oncol 2012;30:[id number]. Review of Systems PAIN ASSESSMENT: Negative for history of chronic pain, or current treatment for a chronic pain condition GENERAL: No weight loss, malaise or fevers. HEENT: Positive forsignificant headaches, now resolved. No changes in hearing or vision, no nose bleeds or other nasal problems RESPIRATORY: Negative for cough, hemoptysis, wheezing or shortness of breath CARDIOVASCULAR: Negative for chest pain, leg swelling or palpitations. GI: No nausea, vomiting, or diarrhea : No history of dysuria, frequency or incontinence. MUSCULOSKELETAL: Bilateral hip and knee pains SKIN: Negative for lesions, rash, Positive for [...] COLONOSCOPY 2014 INGUINAL HERNIA REPAIR HX TONSILLECTOMY AND ADENOIDECTOMY Family History Reviewed Including Cardiac Diseases, Psychiatric Diseases, AND Substance Abuse Problem: Hypertension Relation: Mother Age [...] Sister Age of Onset: (Not Specified) Problem: Parkinson?s Disease Relation: Maternal Grandmother Age of Onset: (Not Specified) Problem: Lung Cancer Relation: Paternal Grandmother Age of Onset: (Not Specified) Problem: Stroke Relation: Paternal Grandfather Age of Onset: (Not Specified) Social History Tobacco Use Smoking status: Never Smokeless tobacco: Never Vaping Use Vaping status: Never Used Substance Use Topics Alcohol use: Yes Drug use: Not Curren (more content not included)... [facility] 11-03-2023 Note HNO ID: [id number] Author: FLAVIO DUNCAN, Research Coordinator Service: ? Author Type: Research Type: Progress Notes Filed: 11/03/2023 12:10 Note Text: [facility] Documentation IRB#: [id number], [facility]#: [id number], Study Title: An Extension Study to Evaluate the Long-term Safety of Rusfertide (PTG-300) in Subjects with Polycythemia Vera Informed Consent signed on 05/19/2023, prior to any study related procedures being performed that are not SOC. Pt Study #: 504-21-001 Treatment Arm: PTG-300 45 mg SC weekly C1D1: 05/19/2023 Patient presents for: Week November 03, 2023 The following research tasks have been completed per protocol: Quality of life questionnaire: Yes VS completed: Yes EKGs : No MISC1 delivered to [facility] lab on 11/02/2023 Given to ALEXANDRO [place] for review. Flavio Duncan, Research Coordinator [facility] 11-03-2023 History of Presen t illness Narrative [facility] Documentation IRB#: [id number], [facility]#: [id number], Study Title: An Extension Study to Evaluate the Long-term Safety of Rusfertide (PTG-300) in Subjects with Polycythemia Vera Informed Consent signed on 05/19/2023, prior to any study related procedures being performed that are not SOC. Pt Study #: 504-21-001 Treatment Arm: PTG-300 45 mg SC weekly C1D1: 05/19/2023 Patient presents for: Week 24 November 03, 2023 The following research tasks have been completed per protocol: Quality of life questionnaire: Yes VS completed: Yes EKGs : No MISC1 delivered to [facility] lab on 11/02/2023 Given to ALEXANDRO [place] for review. Flavio Duncan, Research Coordinator documented in this encounter [facility] 08-11-2023 Note HNO ID: [id number] Author: TREVA HERNÁNDEZ MD Service: ? Author Type: Physician Type: Progress Notes Filed: 09/13/2023 13:00 Note Text: Date: 08/11/2023 Chief Complaint: Polycythemia Vera HPI: Mr. Anil Leos is a 58 year old man with polycythemia vera. He is currently on week 12 on clinical trial PTG 1923. No new skin lesions or rashes. PAST MEDICAL HISTORY Diagnosis Date Elevated prostate specific antigen (PSA) Hypertension REYMUNDO (obstructive sleep apnea) Polycythemia Seasonal allergic rhinitis due to pollen PAST SURGICAL HISTORY Procedure Laterality Date ARTHROSCOPY KNEE DIAGNOSTIC W/WO SYNOVIAL BX SPX Right CLAVICLE LEFT COLONOSCOPY 2014 INGUINAL HERNIA REPAIR HX TONSILLECTOMY AND ADENOIDECTOMY Current Outpatient Medications Medication Sig magnesium glycinate 100 mg magnesium capsule Take 2 capsules by mouth once daily. Take 2 capsules by mouth once daily in late afternoon (Patient taking differently: Take 200 mg by mouth once daily as needed. Take 2 capsules by mouth once daily in late afternoon) efinaconazole 10 % alfa Apply 1 application to affected area once daily. ruxolitinib phosphate (OPZELURA TOPICAL) Apply to affected area. KRILL OIL ORAL Take by mouth twice daily. multivitamin with minerals (ONE-A-DAY 50 PLUS ORAL) Take by mouth once daily. aspirin 81 mg cap Take by mouth once daily. ALLERGIES Allergen Reactions Bactrim [Sulfametho* Rash The patient's family history has been reviewed and is non-contributory Social History Tobacco Use Smoking status: Never Smokeless tobacco: Never Vaping Use Vaping Use: Never used Substance Use Topics Alcohol use: Yes Drug use: Not Currently Review of Systems: ECOG performance status of 0- Fully active, able to carry on all pre-disease performance w/o restriction. MPN-SAF (MPN-10) TSS: Perameter Score (0 if [...] 0 Enrique RM et alJ Clin Oncol 2012;30:6250-1960. Physical Examination: Vital signs: BP 135/71 Pulse 72 Temp 36.8 ?C (98.3 ?F) (Oral) Resp 18 Wt 84 kg (185 lb 3 oz) SpO2 100% BMI 27.74 kg/m? General Appearance: Well appearing, alert, in no acute distress, well-hydrated, well nourished. Eyes: Anicteric sclera. Pupils are equally round. Extraocular movements are intact. Nose: Nares normal, septum midline, mucosa normal, no drainage or sinus tenderness. Oropharynx: Lips, mucosa, and tongue normal, teeth and gums normal, oropharynx normal. Lungs: Lungs clear to auscultation. No wheezing, rhonchi, rales.. Heart: RRR without murmur, gallop, or rubs. No ectopy. Abdomen: Abdomen soft, non-tender. Bowel sounds normal. Spleen is palpable at 5 cm below inferior costal margin Extremities: No deformities, edema, skin discoloration, or cyanosiis. Neurologic: No facial droop. Speech normal. Strength is grossly symmetric in upper and lower extremities. Psychiatric: Behavior is normal. Mood is normal. Lymphatics: No cervical or supraclavicular lymphadenopathy. Skin: No skin lesions on arms or neck or face. No bruises or rashes. Relevant Data Reviewed: CBC with diff: WBC 13.64 08/11/2023 Hemoglobin 10.4 08/11/2023 Hematocrit 40.5 08/11/2023 MCV 71.7 08/11/2023 Platelet Count 885 08/11/2023 Neut% 81.2 08/11/2023 Lymph% 7.6 08/11/2023 Benton% 4.2 08/11/2023 Abs Neut (ANC) 11.08 08/11/2023 Abs Lymphs (Manual Diff) 0.48 12/02/2022 Abs Benton 0.57 08/11/2023 CMP: Sodium 140 08/11/2023 Chloride 105 08/11/2023 CO2 27 08/11/2023 Creatinine 0.98 08/11/2023 BUN 21 08/11/2023 Anion Gap 8 08/11/2023 Calcium 8.9 08/11/2023 Glucose 75 08/11/2023 Protein, Total 6.4 08/11/2023 Albumin 4.2 08/11/2023 Bilirubin, Total 0.5 08/11/2023 Alkaline Phosphatase 57 08/11/2023 AST 22 08/11/2023 ALT 16 08/11/2023 Assessment: Mr. Anil Leos is a 58 year old man with polycythemia vera. He is currently on week 12 on clinical trial PTG 1922. He meets all clinical criteria to continue on study at this time. Plan: Continue on PTG 3 as per protocol. Medical Decision Making: Problems: Low: Stable chronic illness Data: Unique test result(s) reviewed: 3+ Risk: High: Drug therapy requiring intensive monitoring and High risk from testing/treatment Medical Decision Making Level: 4 - Moderate Treva Hernández MD [facility] 08-11-2023 History of Presen t illness Narrative Date: 08/11/2023 Chief Complaint: Polycythemia Vera HPI: Mr. Anil Leos is a 58 year old man with polycythemia vera. He is currently on week 12 on clinical trial PTG 1923. No new skin lesions or rashes. PAST MEDICAL HISTORY Diagnosis Date Elevated prostate specific antigen (PSA) Hypertension REYMUNDO (obstructive sleep apnea) Polycythemia Seasonal allergic rhinitis due to pollen PAST SURGICAL HISTORY Procedure Laterality Date ARTHROSCOPY KNEE DIAGNOSTIC W/WO SYNOVIAL BX SPX Right CLAVICLE LEFT COLONOSCOPY 2014 INGUINAL HERNIA REPAIR HX TONSILLECTOMY & ADENOIDECTOMY <AGE 11 Current Outpatient Medications Medication Sig magnesium glycinate 100 mg magnesium capsule Take 2 capsules by mouth once daily. Take 2 capsules by mouth once daily in late afternoon (Patient taking differently: Take 200 mg by mouth once daily as needed. Take 2 capsules by mouth once daily in late afternoon) efinaconazole 10 % alfa Apply 1 application to affected area once daily. ruxolitinib phosphate (OPZELURA TOPICAL) Apply to affected area. KRILL OIL ORAL Take by mouth twice daily. multivitamin with minerals (ONE-A-DAY 50 PLUS ORAL) Take by mouth once daily. aspirin 81 mg cap Take by mouth once daily. ALLERGIES Allergen Reactions Bactrim [Sulfametho* Rash The patient's family history has been reviewed and is non-contributory Social History Tobacco Use Smoking status: Never Smokeless tobacco: Never Vaping Use Vaping Use: Never used Substance Use Topics Alcohol use: Yes Drug use: Not Currently Review of Systems: ECOG performance status of 0- Fully active, able to carry on all pre-disease performance w/o restriction. MPN-SAF (MPN-10) TSS: Perameter Score (0 if [...] 0 Enrique WILLINGHAM et alJ Clin Oncol 2012;30:9054-1092. Physical Examination: Vital signs: BP 135/71 Pulse 72 Temp 36.8 C (98.3 F) (Oral) Resp 18 Wt 84 kg (185 lb 3 oz) SpO2 100% BMI 27.74 kg/m General Appearance: Well appearing, alert, in no acute distress, well-hydrated, well nourished. Eyes: Anicteric sclera. Pupils are equally round. Extraocular movements are intact. Nose: Nares normal, septum midline, mucosa normal, no drainage or sinus tenderness. Oropharynx: Lips, mucosa, and tongue normal, teeth and gums normal, oropharynx normal. Lungs: Lungs clear to auscultation. No wheezing, rhonchi, rales.. Heart: RRR without murmur, gallop, or rubs. No ectopy. Abdomen: Abdomen soft, non-tender. Bowel sounds normal. Spleen is palpable at 5 cm below inferior costal margin Extremities: No deformities, edema, skin discoloration, or cyanosiis. Neurologic: No facial droop. Speech normal. Strength is grossly symmetric in upper and lower extremities. Psychiatric: Behavior is normal. Mood is normal. Lymphatics: No cervical or supraclavicular lymphadenopathy. Skin: No skin lesions on arms or neck or face. No bruises or rashes. Relevant Data Reviewed: CBC with diff: WBC 13.64 08/11/2023 Hemoglobin 10.4 08/11/2023 Hematocrit 40.5 08/11/2023 MCV 71.7 08/11/2023 Platelet Count 885 08/11/2023 Neut% 81.2 08/11/2023 Lymph% 7.6 08/11/2023 Benton% 4.2 08/11/2023 Abs Neut (ANC) 11.08 08/11/2023 Abs Lymphs (Manual Diff) 0.48 12/02/2022 Abs Benton 0.57 08/11/2023 CMP: Sodium 140 08/11/2023 Chloride 105 08/11/2023 CO2 27 08/11/2023 Creatinine 0.98 08/11/2023 BUN 21 08/11/2023 Anion Gap 8 08/11/2023 Calcium 8.9 08/11/2023 Glucose 75 08/11/2023 Protein, Total 6.4 08/11/2023 Albumin 4.2 08/11/2023 Bilirubin, Total 0.5 08/11/2023 Alkaline Phosphatase 57 08/11/2023 AST 22 08/11/2023 ALT 16 08/11/2023 Assessment: Mr. Anil Leos is a 58 year old man with polycythemia vera. He is currently on week 12 on clinical trial PTG 1923. He meets all clinical criteria to continue on study at this time. Plan: Continue on PTG 1923 as per protocol. Medical Decision Making: Problems: Low: Stable chronic illness Data: Unique test result(s) reviewed: 3+ Risk: High: Drug therapy requiring intensive monitoring and High risk from testing/treatment Medical Decision Making Level: 4 - Moderate Treva Hernández MD documented in this encounter [facility] 08-11-2023 Nurse Note Additional intake questions: Has the patient had fever, nausea, vomiting, diarrhea, constipation, fatigue for > 1 week? No Does the patient have a decreased appetite? No Does patient want to see a Retail Banker? No (yes to any of above refer patient to schedulers for dietitian appointment) ) Does patient have any new or increased numbness or tingling of extremities? No Is patient interested in fertility information? No Does patient need any prescription refills? No Does patient have an advanced directive in place? No, Patient refused referral to Social Work or Resource Center Electronically Signed By: Jakub Leonardo LPN [facility] 08-11-2023 Nurse Note Additional intake questions: Has the patient had fever, nausea, vomiting, diarrhea, constipation, fatigue for > 1 week? No Does the patient have a decreased appetite? No Does patient want to see a Retail Banker? No (yes to any of above refer patient to schedulers for dietitian appointment) ) Does patient have any new or increased numbness or tingling of extremities? No Is patient interested in fertility information? No Does patient need any prescription refills? No Does patient have an advanced directive in place? No, Patient refused referral to Social Work or Resource Center Electronically Signed By: Jakub Leonardo LPN documented in this encounter [facility] 08-11-2023 History of Presen t illness Narrative [...] 0 Enrique WILLINGHAM et alJ Clin Oncol 2012;30:6954-7292. PAST MEDICAL HISTORY Diagnosis Date Status/Active Issues [...] HISTORY Procedure Laterality Date CLAVICLE LEFT REPAIR 2002 COLONOSCOPY 2015 DIAGNOSTIC ARTHROSCOPY KNEE Right ~2006 Inguinal hernia repair ~1979 INGUINAL HERNIA MESH REPAIR HX ~1998 REMOVE TONSILS/ADENOIDS,<12 Y/O ~ Social history: Smoking status: nonsmoker ETOH intake: Drinks on average 1-2 times per week, 2 rum and cokes. Denies recreational drug use. 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 Pt verbalized understanding. 45 mg cartons #s: [id number], [id number], [id number], [id number], [id number], [id number], [id number] Dosing: Reviewed mixing and administration directions for [...] on 11/03/2023 for Week 24 of PTG 1922. The provider has reviewed and verified the [...] On-Call number for the On-Call Oncology Fellow ([phone]). Patient understands that this participation is voluntary and may withdrawal at any time during the trial. Anaid Mabry RN BSN documented in this encounter [facility] 08-11-2023 Note HNO ID: [id number] Author: ANAID MABRY RN Service: ? Author Type: Registered Nurse Type: Progress Notes Filed: 08/11/2023 11:41 Note Text: Summary: BRITNI 1923/24-180 Week 12 visit Title:An Extension Study to Evaluate the Long-term Safety of Rusfertide (PTG-300) in Subjects with Polycythemia Vera Consent expiration 04/13/2024 Screening date: 05/19/2023 Subject#: [id number] PTG 1Z21: Week 1 02/26/2021. EOT 05/19/2023. Rolled over to PTG 1923 on 05/19/2023. Week 0: 05/19/2023 PTG-300 [...] 0 Enrique WILLINGHAM et alJ Clin Oncol 2012;30:0524-2662. PAST MEDICAL HISTORY Diagnosis Date Status/Active Issues [...] cokes. Denies recreational drug use. 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 [facility] 07-14-2023 Note HNO ID: [id number] Author: KUN MATTSON APRN.CASS Service: ? Author Type: Nurse Practitioner Type: Progress Notes Filed: 07/14/2023 13:07 Note Text: Elements have been copied from prior note on 06/16/2023 - The elements have been reviewed and updated where appropriate, and all reflect my current assessment and decision-making from today, 07/14/2023. [facility] Clinical Note Assessment and Plan In summary: [...] with any questions or concerns. Kun Mattson APRN-[facility] Hematology/Oncology Pager [phone] 1:06 PM July 14, 2023 I spent a total of 30 minutes on the date of the service which included preparing to see the patient, [id number]-togy patient care, obtaining and/or reviewing separately obtained [...] 0 Enrique WILLINGHAM et alJ Clin Oncol 2012;30:2263-6426. Review of Systems Reviewed and reported in HPI/Interval history above Adjunct Histories PAST MEDICAL HISTORY Diagnosis Date Elevated prostate specific antigen (PSA) Hypertension REYMUNDO (obstructive sleep apnea) Polycythemia Seasonal allergic rhinitis due to pollen PAST SURGICAL HISTORY Procedure Laterality Date ARTHROSCOPY KNEE DIAGNOSTIC W/WO SYNOVIAL BX SPX Right CLAVICLE LEFT COLONOSCOPY 2014 INGUINAL HERNIA REPAIR HX TONSILLECTOMY AND ADENOIDECTOMY Social History Tobacco Use Smoking status: Never [...] Take by mouth twice daily. multivitamin with mine (more content not included)... [facility] 07-14-2023 History of Presen t illness Narrative Elements have been copied from prior note on 06/16/2023 - The elements have been reviewed and updated where appropriate, and all reflect my current assessment and decision-making from today, 07/14/2023. [facility] Clinical Note Assessment and Plan In summary: [...] started that same day. Dosing on PTG 1922 was initiated at 45 mg weekly despite [...] with any questions or concerns. Kun Mattson APRN-[facility] Hematology/Oncology Pager [phone] 1:06 PM July 14, 2023 I spent a total of 30 minutes on the date of the service which included preparing to see the patient, [id number] patient care, obtaining and/or reviewing separately obtained [...] 0 Enrique WILLINGHAM et alJ Clin Oncol 2012;30:9906-3281. Review of Systems Reviewed and reported in [...] please see Epic. documented in this encounter [facility] 07-14-2023 Nurse Note Additional intake questions: Has the patient had fever, nausea, vomiting, diarrhea, constipation, fatigue for > 1 week? No Does the patient have a decreased appetite? No Does patient want to see a Retail Banker? No (yes to any of above refer patient to schedulers for dietitian appointment) ) Does patient have any new or increased numbness or tingling of extremities? No Is patient interested in fertility information? No Does patient need any prescription refills? No Does patient have an advanced directive in place? No [facility] 07-14-2023 Nurse Note Additional intake questions: Has the patient had fever, nausea, vomiting, diarrhea, constipation, fatigue for > 1 week? No Does the patient have a decreased appetite? No Does patient want to see a Retail Banker? No (yes to any of above refer patient to schedulers for dietitian appointment) ) Does patient have any new or increased numbness or tingling of extremities? No Is patient interested in fertility information? No Does patient need any prescription refills? No Does patient have an advanced directive in place? No documented in this encounter [facility] 07-14-2023 History of Presen t [...] 0 Enrique WILLINGHAM et alJ Clin Oncol 2012;30:3279-4167. PAST MEDICAL HISTORY Diagnosis Date Status/Active Issues [...] cokes. Denies recreational drug use. 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 Pt verbalized understanding. 45 mg cartons #s: [id number], [id number], [id number] Dosing: Reviewed mixing and administration directions for [...] on 08/11/2023 for Week 12 of PTG 1922. The provider has reviewed and verified the [...] On-Call number for the On-Call Oncology Fellow ([phone]). Patient understands that this participation is voluntary and may withdrawal at any time during the trial. CAROL Zambrano, RN documented in this encounter [facility] 07-14-2023 Note HNO ID: [id number] Author: HANNAH LYONS, RN Service: ? Author Type: Registered Nurse Type: Progress Notes Filed: 07/14/2023 12:31 Note Text: Summary: PTG 1923/24-180 Week 8 visit Title:An Extension Study to Evaluate the Long-term Safety of Rusfertide (PTG-300) in Subjects with Polycythemia Vera Consent expiration 04/13/2024 Screening date: 05/19/2023 Subject#: [id number] PTG 1Z21: Week 1 02/26/2021. EOT 05/19/2023. Rolled over to PTG 1923 on 05/19/2023. Week 0: 05/19/2023 PTG-300 [...] 0 Enrique WILLINGHAM et alJ Clin Oncol 2012;30:2593-9944. PAST MEDICAL HISTORY Diagnosis Date Status/Active Issues [...] cokes. Denies recreational drug use. 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 [facility] 06-16-2023 Note HNO ID: [id number] Author: HANNAH LYONS RN Service: ? Author Type: Registered Nurse Type: Progress Notes Filed: 06/17/2023 09:18 Note Text: Summary: PT 1922/24-180 Week 4 visit Title:An Extension Study to Evaluate the Long-term Safety of Rusfertide (PTG-300) in Subjects with Polycythemia Vera Consent expiration 04/13/2024 Screening date: 05/19/2023 Subject#: [id number] PTG 1Z21: Week 1 02/26/2021. EOT 05/19/2023. Rolled over to PTG 1922 on 05/19/2023. Week 0: 05/19/2023 PTG-300 45 mg SC weekly Week 4: 06/16/2023 Maintain dosing Patient is here today for Week 4 VISIT for the PTG 192 Trial, IRB# [id number]. Patient signed Informed Consent on 05/19/2023, prior to any study related procedures. PE completed by Sindy Abreu WIRER PASSENGER CAR Patient is a Male with PV. Patient [...] 0 Enrique RM et alJ Clin Oncol 2012;30:1466-1525. PAST MEDICAL HISTORY Diagnosis Date Status/Active Issues [...] cokes. Denies recreational drug use. 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 [facility] 06-16-2023 History of Presen t [...] 0 Enrique WILLINGHAM et alJ Clin Oncol 2012;30:3108-6159. PAST MEDICAL HISTORY Diagnosis Date Status/Active Issues [...] cokes. Denies recreational drug use. 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's trash disposals guidelines. Pt verbalized understanding. 45 mg cartons #s: [id number], [id number], [id number], [id number] Dosing: Reviewed mixing and administration directions for [...] On-Call number for the On-Call Oncology Fellow ([phone]). Patient understands that this participation is voluntary and may withdrawal at any time during the trial. CAROL Zambrano, RN documented in this encounter [facility] 06-16-2023 History of Presen t illness Narrative Elements have been copied from prior note on 05/19/2023 - The elements have been reviewed and updated where appropriate, and all reflect my current assessment and decision-making from today, 06/16/2023. [facility] Clinical Note Assessment and Plan In summary: [...] which included preparing to see the patient, [id number]-[id number] patient care, obtaining and/or reviewing separately obtained history, performing a medically appropriate examination, counseling and educating the patient/family/caregiver, ordering medications, tests, or procedures, communicating with other HCPs (not separately reported), independently interpreting results (not separately reported), and communicating results to the patient/family/caregiver. Signed: Annie Abreu APRN.W[employer] PASSENGER [employer] Visit Details Interval History Mr. Leos presents [...] 0 Enrique WILLINGHAM et alJ Clin Oncol 2012;30:2423-5801. Review of Systems Reviewed and reported in [...] please see Epic. documented in this encounter [facility] 06-16-2023 Note HNO ID: [id number] Author: ANNIE ABREU APRN.W[employer] P[employer]ENGER [employer] Service: ? Author Type: Nurse Practitioner Type: Progress Notes Filed: 06/16/2023 10:38 Note Text: Elements have been copied from prior note on 05/19/2023 - The elements have been reviewed and updated where appropriate, and all reflect my current assessment and decision-making from today, 06/16/2023. [facility] Clinical Note Assessment and Plan In summary: [...] which included preparing to see the patient, tyat-tn-degn patient care, obtaining and/or reviewing separately obtained history, performing a medically appropriate examination, counseling and educating the patient/family/caregiver, ordering medications, tests, or procedures, communicating with other HCPs (not separately reported), independently interpreting results (not separately reported), and communicating results to the patient/family/caregiver. Signed: Annie Abreu APRN.W[employer] PASSENGER [employer] Visit Details Interval History Mr. Leos presents [...] 0 Enrique WILLINGHAM et alJ Clin Oncol 2012;30:1434-1180. Review of Systems Reviewed and reported in HPI/Interval history above Adjunct Histories PAST MEDICAL HISTORY Diagnosis Date Elevated prostate specific antigen (PSA) Hypertension REYMUNDO (obstructive sleep apnea) Polycythemia Seasonal allergic rhinitis due to pollen PAST SURGICAL HISTORY Procedure Laterality Date ARTHROSCOPY KNEE DIAGNOSTIC W/WO SYNOVIAL BX SPX Right CLAVICLE LEFT COLONOSCOPY 2014 INGUINAL HERNIA REPAIR HX TONSILLECTOMY AND ADENOIDECTOMY Social History Tobacco Use Smoking status: Never Smokeless tobacco: Never Vaping Use Vaping Use: Never used Substance Use Topics Alcohol use: Yes Drug use: Not Currently Allergies and Medications ALLERGIES Allergen Reactions Bactrim [Sulfametho* Rash efinaconazole 10 % alfa Apply 1 application to affected area once daily. ruxolitinib phosphate (OPZELURA T (more content not included)... [facility] 06-16-2023 Nurse Note Additional intake questions: Has the patient had fever, nausea, vomiting, diarrhea, constipation, fatigue for > 1 week? No Does the patient have a decreased appetite? No Does patient want to see a Retail Banker? No (yes to any of above refer patient to schedulers for dietitian appointment) ) Does patient have any new or increased numbness or tingling of extremities? No Is patient interested in fertility information? No Does patient need any prescription refills? No Does patient have an advanced directive in place? No [facility] 06-16-2023 Nurse Note Additional intake questions: Has the patient had fever, nausea, vomiting, diarrhea, constipation, fatigue for > 1 week? No Does the patient have a decreased appetite? No Does patient want to see a Retail Banker? No (yes to any of above refer patient to schedulers for dietitian appointment) ) Does patient have any new or increased numbness or tingling of extremities? No Is patient interested in fertility information? No Does patient need any prescription refills? No Does patient have an advanced directive in place? No documented in this encounter [facility] 05-19-2023 Note HNO ID: [id number] Author: HANNAH LYONS RN Service: ? Author Type: Registered Nurse Type: Progress Notes Filed: 05/19/2023 12:35 Note Text: Summary: [facility] 1923/24-180 Pt signed informed consent Title: An [...] Patient states understanding of all instructions provided. [facility] 05-19-2023 History of Presen t illness Narrative Summary: PTG 192/24-180 Pt signed informed consent Title: An Extension [...] all instructions provided. documented in this encounter [facility] 05-19-2023 Note HNO ID: [id number] Author: BARBIE OVERTON RT(R) Service: Radiology Author Type: Technologist Type: Progress Notes Filed: 05/19/2023 12:02 Note Text: Radiology Service Progress Note PATIENT NAME: Anil [...] PATIENT PRESENTS WITH AN IMPLANTABLE OR ATTACHED SITE COORDINATOR: No RADIOLOGY DEPARTMENT: CT; Exam(s) Completed: Abdomen PERIPHERAL IV DATA: Not applicable SIGNED BY: RT Les(R) May 19, 2023 12:02 PM [facility] 05-19-2023 History of Presen t [...] PATIENT PRESENTS WITH AN IMPLANTABLE OR ATTACHED SITE COORDINATOR: No RADIOLOGY DEPARTMENT: CT; Exam(s) Completed: Abdomen PERIPHERAL IV DATA: Not applicable SIGNED BY: RT Les(Perry) May 19, 2023 12:02 PM documented in this encounter [facility] 05-19-2023 Note HNO ID: [id number] Author: HANNAH LYONS RN Service: ? Author Type: Registered Nurse Type: Progress Notes Filed: 05/24/2023 10:57 Note Text: Summary: PTG 1923/24-108 Screening/Week 0 visit Title:An [...] during the whole study duration), and sexual abstinence.Oral contraception should always be combined with an [...] ups and cancer screenings. Pt sees his clock smith regularly. Pt instructed to reduce sun exposure, [...] Subject who, in the opinion of the caramel cutter helper, should not participate in the study. 2. [...] dose of study drug regardless of the partner?s childbearing potential. 7. A female subject intends [...] any of the excipients. 11. In the caramel cutter helper?s opinion the subject has progressive disease that cannot be managed by adjusting concurrent cytoreductive therapy. Patient meets all Criteria for Study Participation: Yes [place] plan has been entered for prior-authorization: N/A First Visit May 19, 2023: Patient does continue to meet eligibility to proceed with therapy Dosing: Pt watched video provided by sponsor on how to prepare rusfertide injection and how to administer the subcutaneous injection. Reviewed paper administration directions with pictures for preparing and giving the rusfertide injection and (more content not included)... [facility] 05-19-2023 History of Presen t [...] ups and cancer screenings. Pt sees his clock smith regularly. Pt instructed to reduce sun exposure, [...] Subject who, in the opinion of the caramel cutter helper, should not participate in the study. 2. [...] any of the excipients. 11. In the caramel cutter helper s opinion the subject has progressive disease that cannot be managed by adjusting concurrent cytoreductive therapy. Patient meets all Criteria for Study Participation: Yes [place] plan has been entered for prior-authorization: N/A [...] research RN contact information and hem/onc fellow mortgage protection sales phone number. 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 Dosed with carton # [id number]. 0.5-2 hr post dose PK: 1532. No [...] to dispose of full sharps containers per [facility]'s trash disposals guidelines. Pt verbalized understanding. 45 mg cartons #s: [id number], [id number], [id number], [id number] Patient aware to RTC on 06/16/2023 for Week 4 of PTG 192. CAROL Zambrano, RN Summary: PT 1Z21/21-283 EOT visit Title:A Phase 2 Study of the Hepcidin Mimetic PTG-300 in Patients with Phlebotomy-Requiring Polycythemia Vera Consent expiration 05/29/2021 Screening date: 02/12/2021 Screening #: [id number] Part 1 week 1: 02/26/2021 PTG-300 20 [...] 0 Enrique WILLINGHAM et alJ Clin Oncol 2012;30:7641-0162. PAST MEDICAL HISTORY Diagnosis Date Status/Active Issues [...] cokes. Denies recreational drug use. 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 Patient understands that this participation is voluntary and may withdrawal at any time during the trial. CAROL Zambrano, RN documented in this encounter [facility] 05-19-2023 Note HNO ID: [id number] Author: HANNAH LYONS RN Service: ? Author Type: Registered Nurse Type: Progress Notes Filed: 05/19/2023 17:05 Note Text: Summary: PTG 1Z2121-283 EOT visit Title:A Phase 2 Study of the Hepcidin Mimetic PTG-300 in Patients with Phlebotomy-Requiring Polycythemia Vera Consent expiration 05/29/2021 Screening date: 02/12/2021 Screening #: [id number] Part 1 week 1: 02/26/2021 PTG-300 20 [...] 0 Enrique WILLINGHAM et alJ Clin Oncol 2012;30:8889-9720. PAST MEDICAL HISTORY Diagnosis Date Status/Active Issues [...] cokes. Denies recreational drug use. 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 [facility] 05-19-2023 Nurse Note Additional intake questions: Has the patient had fever, nausea, vomiting, diarrhea, constipation, fatigue for > 1 week? No Does the patient have a decreased appetite? No Does patient want to see a Retail Banker? No (yes to any of above refer patient to schedulers for dietitian appointment) ) Does patient have any new or increased numbness or tingling of extremities? No Is patient interested in fertility information? No Does patient need any prescription refills? No Does patient have an advanced directive in place? No, Patient referred to Resource Center Electronically Signed By: Jasmin Sherman LPN documented in this encounter [facility] 05-19-2023 Note HNO ID: [id number] Author: FLAVIO DUNCAN, Research Coordinator Service: ? Author Type: Research Type: Progress Notes Filed: 05/19/2023 11:33 Note Text: CRC Documentation IRB#: [id number], [facility]21, Study Title: A Phase 2 [...] 11:04 AM Rollover visit for IRB#: [id number], [facility]# PTG 1923, Study Title: An Extension Study [...] above) Given to ALEXANDRO London for review. Falvio Duncan, Research Coordinator [facility] 05-19-2023 History of Presen t illness Narrative CRC Documentation IRB#: [id number], [facility] 1Z21, Study Title: A Phase 2 [...] 11:04 AM Rollover visit for IRB#: [id number], [facility]# PTG 1923, Study Title: An Extension Study [...] Duncan, Research Coordinator documented in this encounter [facility] 05-19-2023 History of Presen t illness Narrative Elements copied from note dated 03/24/2023 have been reviewed and updated where appropriate, and all reflect current assessment and medical decision making during today's encounter, 05/19/2023. [facility] Clinical Note Assessment and Plan In summary: [...] which included preparing to see the patient, [id number] patient care, obtaining and/or reviewing separately obtained history, performing a medically appropriate examination, counseling and educating the patient/family/caregiver, ordering medications, tests, or procedures, communicating with other HCPs (not separately reported), independently interpreting results (not separately reported), and communicating results to the patient/family/caregiver. Signed: Annie Abreu APRN.WIRER PASSENGER CAR Visit Details Interval History Mr. Leos presents [...] 0 Enrique WILLINGHAM et alJ Clin Oncol 2012;30:0236-3835. Review of Systems Reviewed and reported in [...] please see Epic. documented in this encounter [facility] 05-19-2023 Note HNO ID: [id number] Author: ANNIE ABREU APRN.WIRER PASSENGER CAR Service: ? Author Type: Nurse Practitioner Type: Progress Notes Filed: 05/19/2023 11:30 Note Text: Elements copied from note dated 03/24/2023 have been reviewed and updated where appropriate, and all reflect current assessment and medical decision making during today's encounter, 05/19/2023. [facility] Clinical Note Assessment and Plan In summary: [...] 1Z21 but d/t Rusferide reformulation w/ PTG 1922, will likely start with 45 mg weekly [...] which included preparing to see the patient, jfqr-ft-[id number] patient care, obtaining and/or reviewing separately obtained history, performing a medically appropriate examination, counseling and educating the patient/family/caregiver, ordering medications, tests, or procedures, communicating with other HCPs (not separately reported), independently interpreting results (not separately reported), and communicating results to the patient/family/caregiver. Signed: Annie Abreu APRN.WIRER PASSENGER CAR Visit Details Interval History Mr. Leos presents [...] 0 Enrique WILLINGHAM et alJ Clin Oncol 2012;30:7542-2310. Review of Systems Reviewed and reported in HPI/Interval history above Adjunct Histories PAST MEDICAL HISTORY Diagnosis Date Elevated prostate specific antigen (PSA) Hypertension REYMUNDO (obstructive sleep apnea) Polycythemia Seasonal allergic rhinitis due to pollen PAST SURGICAL HISTORY Procedure Laterality Date ARTHROSCOPY KNEE DIAGNOSTIC W/WO SYNOVIAL BX SPX Right CLAVICLE LEFT COLONOSCOPY 2 (more content not included)... [facility] 05-18-2023 Miscellaneous Notes 1st time [...] DX: D45 Polycythemia documented in this encounter [facility] 05-17-2023 Miscellaneous Notes Summary: PTG 1922/24-180 consent [...] plan to roll him over to PTG 1922 on his next visit on 05/19/2023. Discussed changes in dosing, appointment frequency and signing consent prior to getting lab work completed. Pt verbalized understanding. Verified pt's email as [email or web address] and that he needs to read the consent prior to signing on , 05/19/2023. Pt has research RN's contact info in order to answer any questions he may have. documented in this encounter [facility] 05-13-2023 Note HNO ID: [id number] Author: ANNIE ABREU APRN.CASS Service: ? Author Type: Nurse Practitioner Type: Progress Notes Filed: 05/13/2023 11:54 Note Text: 11:39 AM: Spoke with Mr. Leos regarding specifics of [facility] PTG 1923 as he is scheduled for follow-up next on 05/19/2023 for planned PTG 1Z21 visit, in the event that rollover study opens prior to then. Advised that Rsch RN, Qiana Lyons, would follow-up with sending him the updated consent so he has ample time to review prior to next week's visit. He appreciates this update and denies having any questions at this time. Confirmed e-mail address with patient: [email or web address] Annie Abreu APRN.CASS [facility] 03-24-2023 History of Presen t illness Narrative Late entry for 1240: Pt denies any recent bleeding episodes or increase in bruising. Summary: PTG 1Z21/21-283 Part 3 Cycle 16 day 1 visit Title:A Phase 2 Study of the Hepcidin Mimetic PTG-300 in Patients with Phlebotomy-Requiring Polycythemia Vera Consent expiration 05/29/2021 Screening date: 02/12/2021 Screening #: [id number] Part 1 week 1: 02/26/2021 PTG-300 20 [...] weeks. Denies any symptoms of pneumonia. Dr. Ventura aware of elevated platelets, cold feet, hyperkalemia [...] 0 Enrique WILLINGHAM et alJ Clin Oncol 2012;30:9899-9833. PAST MEDICAL HISTORY Diagnosis Date Status/Active Issues [...] cokes. Denies recreational drug use. 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 Patient has contact information for Hannah Agapito RN Research Nurse and Dr. Ventura, along with the 24 hour On-Call number for the On-Call Oncology Fellow ([phone]). Patient understands that this participation is voluntary and may withdrawal at any time during the trial. Patient aware to RTC in 8 weeks for Part 3 Cycle 17 day 1 of PTG 1Z21. CAROL Zambrano, RN documented in this encounter [facility] 03-24-2023 History of Presen t illness Narrative Elements copied from my note dated 01/27/2023 have been reviewed and updated where appropriate, and all reflect current assessment and medical decision making during today's encounter, 03/24/2023. [facility] Clinical Note Assessment and Plan In summary: [...] which included preparing to see the patient, wrzx-jj-pqhn patient care, obtaining and/or reviewing separately obtained history, performing a medically appropriate examination, counseling and educating the patient/family/caregiver, ordering medications, tests, or procedures, communicating with other HCPs (not separately reported), independently interpreting results (not separately reported), and communicating results to the patient/family/caregiver. Signed: Annie Abreu APRN.WIRER PASSENGER CAR Visit Details Interval History Mr. Leos presents today for follow up, accompanied by his . He denies any specific complaints other than his feet feeling cold. Both he and his share that they are cold to the touch, but he denies any pain, mottling, discoloration, swelling, or difficulty with walking. This was even the case when they were in [place] within the last couple of weeks. He [...] 0 Enrique WILLINGHAM et alJ Clin Oncol 2012;30:8094-6656. Review of Systems Reviewed and reported in [...] please see Epic. documented in this encounter [facility] 03-24-2023 Nurse Note Additional intake questions: Has the patient had fever, nausea, vomiting, diarrhea, constipation, fatigue for > 1 week? No Does the patient have a decreased appetite? No Does patient want to see a Retail Banker? No (yes to any of above refer [...] Jeremy Wheeler LPN documented in this encounter [facility] 03-22-2023 Miscellaneous Notes Spoke with pt regarding missed appointment today. Pt apologized and stated he did not realize he had an appointment today, as he is usually here on . Assured patient not a problem. Pt verbalized he will be here , 03/24/23 for labs at 9:00 and provider visit at 10:00. Anaid Mabry RN BSN documented in this encounter [facility] 01-27-2023 History of Presen t illness Narrative Elements copied from my note dated 12/02/2022 have been reviewed and updated where appropriate, and all reflect current assessment and medical decision making during today's encounter, 01/27/2023. [facility] Clinical Note Assessment and Plan In summary: [...] well. No injection reactions. Labs reviewed and are stable. No dose adjustment necessary per study. No contraindication to continuing per study today. DERM Has started opzelura (topical ruxolitinib) earlier this year (2022), was taking sporadically for vitiligo with noted improvement, particularly to bilateral hands); however hasn't used in ~ 3 months due to running out and not yet being able to see prescribing provider. Continues to take oral and topical antifungals for fingernails (terbinafine and efinaconazole, respectively), also seeing improvement here. Hasn't taken these medications either for ~ 3 months as well for same reason as above. S/p local derm visit on 09/22/22. Reports no concerning findings on skin exam. Continue close follow-up with dermatology Dizziness Resolved per patient. Took meclizine once; no recurrent episodes since earlier this summer (2022). GI/MSK Noted to have diastasis recti per [...] Continue follow-up with PCP. RTC per study protocol I spent a total of 29 minutes on the date of the service which included preparing to see the patient, rvsv-tf-tvgp patient care, obtaining and/or reviewing separately obtained history, performing a medically appropriate examination, counseling and educating the patient/family/caregiver, ordering medications, tests, or procedures, communicating with other HCPs (not separately reported), independently interpreting results (not separately reported), and communicating results to the patient/family/caregiver. Signed: Annie Abreu APRN.WIRER PASSENGER CAR Visit Details Interval History Mr. Leos presents today for follow up. He denies any specific complaints, and shares that he is feeling well overall. Denies any reactions with his PTG injections. States he hasn't taken his Opzelura, terbinafine, or efinaconazole for around 3 months since he ran out but hasn't been able to see his provider for a refill. Notes had the start of pneumonia ~ one month ago for which he went to the ED per his PCP's instruction, was given a breathing treatment and antibiotics, then released. His symptoms have since resolved. He remains active. Appetite good - eating [...] 0 Enrique WILLINGHAM et alJ Clin Oncol 2012;30:7433-8326. Review of Systems Reviewed and reported in [...] by mouth once daily. Exam Vital Signs 01/27/23 1113 BP: 135/71 Pulse: 72 Resp: 15 Temp: 36.7 C (98.1 F) TempSrc: Oral SpO2: 99% Weight: 85.3 kg (188 lb 0.8 oz) Height: 175.3 cm (5' 9 ) Performance Status Karnofsky Scale:100 - Normal, no complaints, no evidence of disease. ECOG/Zubrod Performance Scale: 0- Fully active, able to carry on all pre-disease performance w/o restriction. Examination Physical Examination: General: Well appearing, in NAD, appropriate. HEENT: No scleral icterus, EOMI. MMM and without erythema. Pulm: CTA bilaterally. No cough. Cardiac: Regular [...] please see Epic. documented in this encounter [facility] 01-27-2023 Nurse Note Additional intake questions: Has the patient had fever, nausea, vomiting, diarrhea, constipation, fatigue for > 1 week? No Does the patient have a decreased appetite? No Does patient want to see a Retail Banker? No (yes to any of above refer patient to schedulers for dietitian appointment) ) Does patient have any new or increased numbness or tingling of extremities? No Is patient interested in fertility information? No Does patient need any prescription refills? No Does patient have an advanced directive in place? No, Patient referred to Resource Center documented in this encounter [facility] 12-03-2022 Evaluation note Encounter Date Diagnosis Assessment Notes Nov, Acute bronchitis due to other specified organisms (ICD-10 - J20.8) Instructed to use Robitussin or Mucinex for cough, saline or Flonase NS for congestion, Tylenol for pain and fever. Nov, Polycythemia vera (ICD-10 - D45) Continue w/ trial, f/u [facility] Stable, f/u [facility] CBC yesterday w/ leukocytosis and thrombocythemia [facility] Other 10-20-2023 Evaluation note* Encounter Date Diagnosis Assessment Notes Treatment Notes Treatment Clinical Notes Nov, Splenomegaly (ICD-10 - R16.1) [facility] Other [id number] History of Present illness Narrative* Maya Sanches [...] 02, 2022 12:20 PM [facility] History of Present illness Narrative* Hannah Lyons, ALEXANDRO - 12/02/2022 1:42 PM EDTSummary: PTG 1Z21/21-283 Part 3 Cycle 14 day 1 visit Title:A Phase 2 Study of the Hepcidin Mimetic PTG-300 in Patients with Phlebotomy-Requiring Polycythemia Vera Consent expiration 05/29/2021 Screening date: 02/12/2021 Screening #: [id number] Part 1 week 1: 02/26/2021 Part 2 [...] protocol: yes Changes per patient: Yes, see [employer] Quality of life questionnaire completed per protocol: Yes Clinical trial labs completed per protocol: Yes Vitals completed per protocol: Yes ECO EKG: Screening QTcF 414 ms. Completed by Annia BELL I. QTcF [address]: completed Spleen: 0 [...] 0 Enrique WILLINGHAM et alJ Clin Oncol 2012;30:8553-0489. PAST MEDICAL HISTORY Diagnosis Date Status/Active Issues [...] cokes. Denies recreational drug use. 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 Patient has contact information for Hannha Lyons RN Research Nurse and Dr. Ventura, along with the 24 hour On-Call number for the On-Call Oncology Fellow ([phone]). Patient understands that this participation is voluntary and may withdrawal at any time during the trial. Patient aware to RTC in 8 weeks for Part 3 Cycle 15 day 1 of PTG 1Z21. CAROL Zambrano, RN [facility] History of Present illness Narrative* Hannah Lyons, RN - 10/07/2022 12:27 PM EDTSummary: PTG 1Z21/21-283 Part 3 Cycle 12 day 1 visit Title:A Phase 2 Study of the Hepcidin Mimetic PTG-300 in Patients with Phlebotomy-Requiring Polycythemia Vera Consent expiration 05/29/2021 Screening date: 02/12/2021 Screening #: [id number] Part 1 week 1: 02/26/2021 Part 2 week 29: 09/10/2021 Part 2 week 41: 12/03/2021 Part 3 cycle 1 day 1: 12/03/2021 Patient is here today for Part 3 cycle 12 day 1 visit for the PTG 1Z21 Trial, IRB# [id number]. PE: completed by Katherine Virgen PA-C Patient is a Male with PV. Patient is willing and able to comply with the protocol for the durationof the study including undergoing treatment and scheduled visits and examinations. Pt here with his . No phlebotomies needed since last visit. Pt denies headaches. No complaints at this time. Pt saw his local clock smith since his last visit. No new skin [...] All labs and AEs reviewed by Katherine Virgen PA-C. Patient continues to meet parameters to [...] 0 Enrique WILLINGHAM et alJ Clin Oncol 2012;30:4279-3631. PAST MEDICAL HISTORY Diagnosis Date Status/Active Issues [...] cokes. Denies recreational drug use. 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 Patient understands that this participation is voluntary and may withdrawal at any time during the trial. Patient aware to RTC in 8 weeks for Part 3 Cycle 14 day 1 of PTG 1Z21. CAROL Zambrano, RN [facility] History of Present illness Narrative* Sheryl Virgen PA-C - 10/07/2022 11:00 AM EDT Elements copied from Annie Abreu's note dated 08/13/22, have been reviewed and updated where appropriate, and all reflect current assessment and medical decision making during today's encounter,October 07, 2022 [facility] Clinical Note Assessment and Plan In summary: [...] last visit. RTC per study protocol Sheryl Virgen PA-C Hematology/Oncology Pager [phone] Visit Details Interval History Mr. Leos presents [...] 0 Enrique WILLINGHAM et alJ Clin Oncol 2012;30:3960-6061. Review of Systems Reviewed and reported in [...] Reviewed, please see Epic. documented in [facility] encounter[facility] Nurse Note* Jasmin Sherman LPN - 10/07/2022 10:55 AM EDT Additional intake questions: Has the patient had fever, nausea, vomiting, diarrhea, constipation, fatigue for > 1 week? No Does the patient have a decreased appetite? No Does patient want to see a Retail Banker? No (yes to any of above refer patient to schedulers for dietitian appointment) ) Does patient have any new or increased numbness or tingling of extremities? No Is patient interested in fertility information? No Does patient need any prescription refills? No Does patient have an advanced directive in place? No, Patient referred to Resource Center Electronically Signed By: Jasmin Sherman LPN documented in [facility] Evaluation note* Encounter Date Diagnosis Assessment Notes [...] use, the patient reduces the risk for CT, CVA, HTN, cardiac dysrhythmias and sudden cardiac [...] (ICD-10 - Z12.5) Yearly AMADO and PSA Caret [facility] Other 07-28-2023 Miscellaneous Notes* Telephone Encounter - Hannah Lyons RN - 09/10/2022 10:44 AM EDT Noted that pt did not get local CBC/D yesterday. Called pt and he is going to get blood drawn today. documented in this encounterW[facility]06[facility]23 History of Present illness Narrative* Kyleigh Rust RN - 08/13/2022 2:31 PM EDT Title:A Phase 2 Study of the Hepcidin Mimetic PTG-300 in Patients with Phlebotomy-Requiring Polycythemia Vera Consent expiration 05/29/2021 Screening date: 02/12/2021 Screening #: [id number] Part 1 week 1: 02/26/2021 Part 2 week 29: 09/10/2021 Part 2 week 41: 12/03/2021 Part 3 cycle 1 day 1: 12/03/2021 Patient is here today for Part 3 cycle 10 day 1 visit for the PTG 1Z21 Trial, IRB# [id number]. PE: completed by JACKELYN Truong,CASS Patient is a Male with PV. Patient [...] equates to feeling like motion sickness JACKELYN Truong,CASS prescribed meclizine. Pt has been on a stable dose greater than 2 cycles and next cycle is optional. Pt will get lab work completed locally for a cbc/d in 4 weeks, ~09/10/2022. Pt verbalized understanding. All labs and AEs reviewed by and Alexi,SCHOOL LUNCH MANAGER, WIRER PASSENGER CAR Patient continues to meet parameters to proceed [...] 0 Enrique WILLINGHAM et alJ Clin Oncol 2012;30:9689-9965. PAST MEDICAL HISTORY Diagnosis Date Status/Active Issues [...] cokes. Denies recreational drug use. 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 Patient understands that this participation is voluntary and may withdrawal at any time during the trial. Patient aware to get local blood work in 4 weeks and RTC in8 weeks for Part 3 Cycle 12 day 1 of PTG 1Z21. Kyleigh Rust, RN, OCN documented in this encounterW[facility]06[facility] History of Present illness Narrative* Annie Abreu APRN.WIRER PASSENGER CAR - 08/13/2022 2:00 PM EDT *Some elements have been copied from Sheryl Virgen's note on 06/17/2022 - The elements have been updated and all reflect my current decision making from today, 08/13/2022. [facility] Clinical Note Assessment and Plan In summary: [...] He has a follow-up appointment with his clock smith (non [facility]) on 09/22/2022. Dizziness Intermittent. Had vertigo in the past years ago - resolved with medication. Amenable to trying meclizine - script sent to local [facility] pharmacy per his request. Provided after-hours/weekend provider on-call telephone number for any questions/concerns given the upcoming weekend and holiday. RTC in 8 weeks with labs per study protocol - to get labs locally in [place] in the meanwhile in ~4 weeks. Signed: Annie Abreu APRN.[employer]ENGER [employer] Date: August 13, 2022 Visit Details Interval [...] that he was prescribed by his local clock smith but he has been taking the oral [...] 0 Enrique RM et alJ Clin Oncol 2012;30:0432-7391. Review of Systems Reviewed and negative aside [...] Reviewed, please see Epic. documented in this encounterWexner [facility] Center06-30-2023 Nurse Note* Jasmin Sherman LPN - 08/13/2022 1:50 PM EDT Additional intake questions: Has the patient had fever, nausea, vomiting, diarrhea, constipation, fatigue for > 1 week? No Does the patient have a decreased appetite? No Does patient want to see a Retail Banker? No (yes to any of above refer patient to schedulers for dietitian appointment) ) Does patient have any new or increased numbness or tingling of extremities? No Is patient interested in fertility information? No Does patient need any prescription refills? No Does patient have an advanced directive in place? No, Patient referred to Resource Center Electronically Signed By: Jasmin Sherman LPN documented in this encounterWexner Medical Center06-26-2023 Miscellaneous Notes* Telephone Encounter - Kyleigh Rust RN - 08/09/2022 4:37 PM EDT Returned patients call. 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 I explained that is not permitted and he is required to be assessed by a provider. Arrangements are being made for patient to be seen on Tuesday08/13/2022. Patient stated I should be able to make that, I'll call you on Patient has my return number [phone]. documented in this encounterWexner Medical Center05-04-2023 Nurse Note* Jasmin Sherman LPN - 06/17/2022 11:05 AM EDT Additional intake questions: Has the patient had fever, nausea, vomiting, diarrhea, constipation, fatigue for > 1 week? No Does the patient have a decreased appetite? No Does patient want to see a Retail Banker? No (yes to any of above refer patient to schedulers for dietitian appointment) ) Does patient have any new or increased numbness or tingling of extremities? No Is patient interested in fertility information? No Does patient need any prescription refills? No Does patient have an advanced directive in place? No, Patient referred to [facility] Electronically Signed By: Jasmin Sherman LPN documented in this encounterWexner Medical Center05-04-2023 History of Present illness Narrative* Sheryl Virgen PA-C - 06/17/2022 11:00 AM EDT Elements copied from Meghan Graves' note dated 04/22/2022, have been reviewed and updated where appropriate, and all reflect current assessment and medical decision making during today's encounter, [facility] Clinical Note Assessment and Plan In summary: [...] weeks with labs per study protocol Sheryl Virgen PA-C Hematology/Oncology Pager [phone] Visit Details Interval History Patient presents today [...] 0 Enrique WILLINGHAM et alJ Clin Oncol 2012;30:2508-1781. Review of Systems Reviewed and noted in [...] prior to this visit and [facility]. documented in this encounterWexner Medical Center04-21-2023 Evaluation note* Encounter Date Diagnosis Assessment Notes Treatment Notes Treatment Clinical Notes May, Seasonal allergic rhinitis due to pollen (ICD-10 - J30.1) Taggled Other 03-09-2023 History of Present illness Narrative* Hannah Lyons RN - 04/22/2022 12:38 PM ESTSummary: PTG 1Z21/21-283 Part 3 cycle 6 day 1 visit Title:A Phase 2 Study of the Hepcidin Mimetic PTG-300 in Patients with Phlebotomy-Requiring Polycythemia Vera Consent expiration 05/29/2021 Screening date: 02/12/2021 Screening #: [id number] Part 1 week 1: 02/26/2021 Part 2 week 29: 09/10/2021 Part 2 week 41: 12/03/2021 Part 3 cycle 1 day 1: 12/03/2021 Patient is here today for Part 3 cycle 6 day 1 visit for the PTG 1Z21 Trial, IRB# [id number]. PE: completed by Delfina Graves [employer] Patient is a Male with PV. Patient [...] gets bigger, pt to be seen by clock smith. Pt has been on a stable dose [...] Screening QTcF 414 ms. Completed by Herber Zhou QTcF [address]: completed Spleen: 0 [...] 0 Enrique WILLINGHAM et alJ Clin Oncol 2012;30:0510-0783. PAST MEDICAL HISTORY Diagnosis Date Status/Active Issues [...] cokes. Denies recreational drug use. 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 Patient understands that this participation is voluntary and may withdrawal at any time during the trial. Patient aware to get local blood work in 4 weeks and RTC in8 weeks for Part 3 Cycle 8 day 1 of PTG 1Z21. CAROL Zambrano, RN documented in this encounterWexner Medical Center03-09-2023 History of Present illness Narrative* RT Tammi(R) [...] 22, 2022 8:55 AM documented in this encounterWexner Medical Center01-12-2023 History of Present illness Narrative* Hannah Lyons RN - 02/25/2022 2:09 PM ESTSummary: PTG 1Z21/21-283 Part 3 cycle 4 day 1 visit. Title:A Phase 2 Study of the Hepcidin Mimetic PTG-300 in Patients with Phlebotomy-Requiring Polycythemia Vera Consent expiration 05/29/2021 Screening date: 02/12/2021 Screening #: [id number] Part 1 week 1: 02/26/2021 Part 2 [...] 0 Enrique RM et alJ Clin Oncol 2012;30:0596-1578. PAST MEDICAL HISTORY Diagnosis Date Status/Active Issues [...] cokes. Denies recreational drug use. 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 Patient understands that this participation is voluntary and may withdrawal at any time during the trial. Patient aware to get local blood work in 4 weeks and RTC in8 weeks for Part 3 Cycle 6 day 1 of PTG 1Z21. CAROL Zambrano, RN documented in this encounterWexner Medical Center01-12-2023 History of Present illness Narrative* Bryce Ventura MD - 02/25/2022 1:20 PM EST Some elements copied from my note on 12/31/2021, the elements have been updated and all reflect current decision making from today, 01/28/2022. [facility] Clinical Note Assessment and Plan In summary: [...] which included preparing to see the patient, [id number] patient care, completing clinical documentation, performing a [...] 0 Enrique WILLINGHAM et alJ Clin Oncol 2012;30:9622-8054. Review of Systems PAIN ASSESSMENT: Negative for [...] prior to this visit and those [facility]. documented in this encounterWexner Medical Center01-12-2023 Nurse Note* Jasmin Sherman LPN - 02/25/2022 1:14 PM EST Additional intake questions: Has the patient had fever, nausea, vomiting, diarrhea, constipation, fatigue for > 1 week? No Does the patient have a decreased appetite? No Does patient want to see a Retail Banker? No (yes to any of above refer patient to schedulers for dietitian appointment) ) Does patient have any new or increased numbness or tingling of extremities? No Is patient interested in fertility information? No Does patient need any prescription refills? No Does patient have an advanced directive in place? No, Patient referred to Resource Center Electronically Signed By: Jasmin Sherman LPN documented in this encounterWexner Medical Center12-22-2022 Miscellaneous Notes* Telephone Encounter - Hannah Lyons [...] to be present when he sees the clock smith. Pt to cancel the appointment for 02/04/2022. documented in this encounterWexner Medical Center12-15-2022 History of Present illness Narrative* Meghan Graves APRN.[employer] P[employer]ENGER [employer] - 01/28/2022 11:30 AM EST Some elements copied from my note on 12/31/2021, the elements have been updated and all reflect current decision making from today, 01/28/2022. [facility] Clinical Note Assessment and Plan In summary: [...] stable. Follow up per study. Meghan Graves APRN.W[employer] P[employer]ENGER [employer] Visit Details Past Medical History He is [...] 0 Enrique WILLINGHAM et alJ Clin Oncol 2012;30:4911-1276. Review of Systems PAIN ASSESSMENT: Negative for [...] a week. Oral Medication Containers (SHARPS CONTAINER) [facility] 1 Container as directed. KRILL [...] prior to this visit and those [facility]. documented in this encounterWexner Medical Center12-15-2022 Nurse Note* Jasmin Sherman LPN - 01/28/2022 11:25 AM EST Additional intake questions: Has the patient had fever, nausea, vomiting, diarrhea, constipation, fatigue for > 1 week? No Does the patient have a decreased appetite? No Does patient want to see a Retail Banker? No (yes to any of above refer patient to schedulers for dietitian appointment) ) Does patient have any new or increased numbness or tingling of extremities? No Is patient interested in fertility information? No Does patient need any prescription refills? No Does patient have an advanced directive in place? No Electronically Signed By: Jasmin Sherman LPN documented in this encounterWexner Medical Center11-17-2022 Nurse Note* Nargis Arita LPN - 12/31/2021 11:04 AM EST Additional intake questions: Has the patient had fever, nausea, vomiting, diarrhea, constipation, fatigue for > 1 week? No Does the patient have a decreased appetite? No Does patient want to see a Retail Banker? No (yes to any of above refer patient to schedulers for dietitian appointment) ) Does patient have any new or increased numbness or tingling of extremities? No Is patient interested in fertility information? No Does patient need any prescription refills? No Does patient have an advanced directive in place? No, Patient refused referral to Social Work or Resource Center documented in this encounterWexner Medical Center11-17-2022 History of Present illness Narrative* Meghan Graves APRN.[employer] P[employer]ENGER [employer] - 12/31/2021 11:00 AM EST Some elements copied from my note on 12/03/2021, the elements have been updated and all reflect current decision making from today, 12/31/2021. [facility] Clinical Note Assessment and Plan In summary: [...] 4-6 months. Follow up per study. Meghan Graves APRN.[employer] P[employer]ENGER [employer] Visit Details Past Medical History He is [...] 0 Enrique WILLINGHAM et alJ Clin Oncol 2012;30:9047-7182. Review of Systems PAIN ASSESSMENT: Negative for [...] prior to this visit and [facility]. documented in this encounterWexner Medical Center10-20-2022 History of Present illness Narrative* Hannah Lyons RN - 12/03/2021 1:43 PM EDTSummary: PTG 1Z21/21-283 End of Part 2 week 41/Part 3 cycle 1 day 1 visit Title:A Phase 2 Study of the Hepcidin Mimetic PTG-300 in Patients with Phlebotomy-Requiring Polycythemia Vera Consent expiration 05/29/2021 Screening date: 02/12/2021 Screening #: [id number] Part 1 week 1: 02/26/2021 Part 2 [...] skin assessment. Pt to follow up with clock smith. Pt verbalized understanding. Patient does continues to [...] 0 Enrique RM et alJ Clin Oncol 2012;30:2961-1498. PAST MEDICAL HISTORY Diagnosis Date Status/Active Issues [...] cokes. Denies recreational drug use. 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 Patient understands that this participation is voluntary and may withdrawal at any time during the trial. Patient aware to RTC in 4 weeks for Part 3 Cycle 2 ay 1 of PTG 1Z21. CAROL Zambrano, RN documented in this encounterWexner Medical Center09-22-2022 History of Present illness Narrative* Meghan Graves APRN.[employer] P[employer]ENGER [employer] - 11/05/2021 1:00 PM EDT Some elements copied from Elizabeth dunn's note on 10/08/2021, the elements have been updated and all reflect current decision making from today, 11/05/2021. [facility] Clinical Note Assessment and Plan In summary: [...] stable. Follow up per study. Meghan Graves APRN.[employer] PASSENGER [employer] Visit Details Past Medical History He is here today for follow up. Overall he is feeling well and offers no new complaints. His PLT are stable in the mid 's. He has noticed red spots on either [...] 0 Enrique WILLINGHAM et alJ Clin Oncol 2012;30:7450-3980. Review of Systems PAIN ASSESSMENT: Negative for [...] a week. Oral Medication Containers (SHARPS CONTAINER) [facility] 1 Container as directed. KRILL [...] prior to this visit and [facility]. documented in this encounterWexner Medical Center09-22-2022 Nurse Note* Mil Diego LPN - 11/05/2021 12:57 PM EDT Additional intake questions: Has the patient had fever, nausea, vomiting, diarrhea, constipation, fatigue for > 1 week? No Does the patient have a decreased appetite? No Does patient want to see a Retail Banker? No (yes to any of above refer patient to schedulers for dietitian appointment) ) Does patient have any new or increased numbness or tingling of extremities? No Is patient interested in fertility information? NA Does patient need any prescription refills? No Does patient have an advanced directive in place? No, Patient referred to Resource Center documented in this encounterWexner Medical Center08-25-2022 History of Present illness Narrative* Hannah Lyons RN - 10/08/2021 2:02 PM EDTSummary: PTG 1Z21/21-283 Part 2 week 33 visit Title:A Phase 2 Study of the Hepcidin Mimetic PTG-300 in Patients with Phlebotomy-Requiring Polycythemia Vera Consent expiration 05/29/2021 Screening date: 02/12/2021 Screening #: [id number] Part 1 week 1: 02/26/2021 Part 2 [...] 0 Enrique RM et alJ Clin Oncol 2012;30:0291-2613. PAST MEDICAL HISTORY Diagnosis Date Status/Active Issues [...] cokes. Denies recreational drug use. 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 Four at 40 mg each and four at 20 mg each as dispensed by the pharmacy. 20 mg Syringe #s: 56358, 72092, 16646, 80062 40 mg Syringe #s: 10621, 39765, 56796, 32050 The provider has reviewed and verified the [...] On-Call number for the On-Call Oncology Fellow ([phone]). Patient understands that this participation is voluntary and may withdrawal at any time during the trial. Patient aware to RTC in 4 weeks for Part 2 Week 37 of PTG 1Z21. ALEXANDRIA ZambranoN, RN documented in this encounterWexner Medical Center08-25-2022 History of Present illness Narrative* Elizabeth Dunn APRN.W[employer]ER PASSENGER [employer] - 10/08/2021 1:21 PM EDT Some elements copied from Dr. Ventura' note on 09/10/21, the elements have been updated and reflect current decision making from today 10/08/21. [facility] Clinical Note Assessment and Plan In summary: [...] 0 Enrique WILLINGHAM et alJ Clin Oncol 2012;30:6599-8206. Review of Systems PAIN ASSESSMENT: Negative for [...] and those in [facility]. documented in this encounterWexner Medical Center08-25-2022 Nurse Note* Lashonda Mooney RN - 10/08/2021 1:15 PM EDT Additional intake questions: Has the patient had fever, nausea, vomiting, diarrhea, constipation, fatigue for > 1 week? No Does the patient have a decreased appetite? No Does patient want to see a Retail Banker? No (yes to any of above refer [...] By: Lashonda Mooney RN documented in this encounterWexner Medical Center07-28-2022 History of Present illness Narrative* Kyleigh Rust RN - 09/10/2021 2:35 PM EDT Title:A Phase 2 Study of the Hepcidin Mimetic PTG-300 in Patients with Phlebotomy-Requiring Polycythemia Vera Consent expiration 05/29/2021 Screening date: 02/12/2021 Screening #: [id number] Part 1 week 1: 02/26/2021 Part 2 [...] 0 Enrique WILLINGHAM et alJ Clin Oncol 2012;30:4507-7280. PAST MEDICAL HISTORY Diagnosis Date Status/Active Issues [...] cokes. Denies recreational drug use. 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 Four at 40 mg each and four at 20 mg each as dispensed by the pharmacy. 20 mg Syringe #s: 40805, 95581, 27089, 83508 40 mg Syringe #s: 17503, 87428, 87454, 22278 The provider has reviewed and verified the [...] On-Call number for the On-Call Oncology Fellow ([phone]). Patient understands that this participation is voluntary and may withdrawal at any time during the trial. Patient aware to RTC in 4 weeks for Part 2 Week 33 of PTG 1Z21. Kyleigh Rust RN,OCN documented in this encounterWexner Medical Center07-28-2022 Nurse Note* Maricruz Costello RN - 09/10/2021 1:32 PM EDT Additional intake questions: Has the patient had fever, nausea, vomiting, diarrhea, constipation, fatigue for > 1 week? No Does the patient have a decreased appetite? No Does patient want to see a Retail Banker? No (yes to any of above refer [...] By: Maricruz Costello RN documented in this encounterWexner Medical Center07-28-2022 History of Present illness Narrative* RT Shorty(R) [...] 10, 2021 1:13 PM documented in this encounterWexner Medical Center07-28-2022 History of Present illness Narrative* Bryce Ventura MD - 09/10/2021 8:13 AM EDT All documentation from previous visit of 08/11/2021 was copied and pasted, documentation has been reviewed and edited as necessary for today's visit. [facility] Clinical Note Assessment and Plan In summary: [...] which included preparing to see the patient, [id number] patient care, completing clinical documentation, performing a [...] 0 Enrique RM et alJ Clin Oncol 2012;30:0770-1289. Review of Systems PAIN ASSESSMENT: Negative for [...] a week. Oral Medication Containers (SHARPS CONTAINER) mis 1 Container as directed. KRILL OIL ORAL [...] prior to this visit and [facility]. documented in this encounterWexner Medical Center07-19-2022 Miscellaneous Notes* Telephone Encounter - Hannah Lyons RN - 09/01/2021 3:28 PM EDT Pt's , Micki, called and left a message to see if Segundo's next visit will be prolonged or the usual time since he will be moving to Part 2 of the clinical trial PTG Z. Attempted to callher back. Left message on voice mail that the appointment should not be any longer than the past several visits. Left contact information for any further questions. documented in this encounterWexner Medical Center06-28-2022 History of Present illness Narrative* Hannah Lyons RN - 08/11/2021 1:53 PM EDTSummary: PTG Z- week 25 visit Title:A Phase 2 Study of the Hepcidin Mimetic PTG-300 in Patients with Phlebotomy-Requiring Polycythemia Vera Consent expiration 05/29/2021 Screening date: 02/12/2021 Screening #: [id number] Part 1 week 1: 02/26/2021 Patient is [...] 0 Enrique WILLINGHAM et alJ Clin Oncol 2012;30:0262-2516. PAST MEDICAL HISTORY Diagnosis Date Status/Active Issues [...] cokes. Denies recreational drug use. 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 Patient understands that this participation is voluntary and may withdrawal at any time during the trial. Patient aware to RTC in 4 weeks for Part 1 Week 29 of PTG 1Z21. CAROL Zambrano, RN documented in this encounterWexner Medical Center06-28-2022 History of Present illness Narrative* Elizabeth Dunn APRN.[facility] - 08/11/2021 1:01 PM EDT Some elements copied from Dr. Ventura' on 07/14/2021, the elements have been updated and all reflect current decision making from today, 08/11/2021. [facility] Clinical Note Assessment and Plan In summary: [...] 0 Enrique WILLINGHAM et alJ Clin Oncol 2012;30:4024-7070. Review of Systems PAIN ASSESSMENT: Negative for [...] prior to this visit and those in [facility]. documented in this encounterWexner Medical Center06-28-2022 Nurse Note* Maricruz Costello RN - 08/11/2021 12:47 PM EDT Additional intake questions: Has the patient had fever, nausea, vomiting, diarrhea, constipation, fatigue for > 1 week? No Does the patient have a decreased appetite? No Does patient want to see a Retail Banker? No (yes to any of above refer patient to schedulers for dietitian appointment) ) Does patient have any new or increased numbness or tingling of extremities? No Is patient interested in fertility information? No Does patient need any prescription refills? No Does patient have an advanced directive in place? No, Patient referred to Resource Center Electronically Signed By: Maricruz Tamburiello, RN documented in this encounterWexner Medical Center05-31-2022 History of Present illness Narrative* Bryce Ventura MD - 07/14/2021 10:12 AM EDT Some elements copied from my note on 05/21/2021, the elements have been updated and all reflect current decision making from today, 06/18/2021. [facility] Clinical Note Assessment and Plan In summary: [...] which included preparing to see the patient, [id number] patient care, completing clinical documentation, performing a [...] 0 Enrique RM et alJ Clin Oncol 2012;30:0952-5491. Review of Systems PAIN ASSESSMENT: Negative for [...] prior to this visit and [facility]. documented in this encounterWexner Medical Center05-31-2022 History of Present illness Narrative* Hannah Lyons RN - 07/14/2021 10:07 AM EDTSummary: PTG 1Z21/21-283 part 1 week 21 visit Title:A Phase 2 Study of the Hepcidin Mimetic PTG-300 in Patients with Phlebotomy-Requiring Polycythemia Vera Consent expiration 05/29/2021 Screening date: 02/12/2021 Screening #: [id number] Part 1 week 1: 02/26/2021 Patient is [...] 0 Enrique RM et alJ Clin Oncol 2012;30:2482-1034. PAST MEDICAL HISTORY Diagnosis Date Status/Active Issues [...] cokes. Denies recreational drug use. 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 Patient understands that this participation is voluntary and may withdrawal at any time during the trial. Patient aware to RTC in 4 weeks for Part 1 Week 25 of PTG 1Z21. Hannah Lyons RN documented in this encounterWexner Medical Center05-31-2022 Nurse Note* Maricruz Costello RN - 07/14/2021 10:06 AM EDT Additional intake questions: Has the patient had fever, nausea, vomiting, diarrhea, constipation, fatigue for > 1 week? Yes, fatigue and Provider Notified Does the patient have a decreased appetite? No Does patient want to see a Retail Banker? No (yes to any of above refer patient to schedulers for dietitian appointment) ) Does patient have any new or increased numbness or tingling of extremities? No Is patient interested in fertility information? No Does patient need any prescription refills? No Does patient have an advanced directive in place? No, Patient referred to [facility] Electronically Signed By: Maricruz Costello RN documented in this encounterWexner Medical Center05-05-2022 History of Present illness Narrative* Hannah Lyons RN - 06/18/2021 3:39 PM EDTSummary: PTG 1Z21/21-283 Part 1 week 17 visit Title:A Phase 2 Study of the Hepcidin Mimetic PTG-300 in Patients with Phlebotomy-Requiring Polycythemia Vera Consent expiration 05/29/2021 Screening date: 02/12/2021 Screening #: [id number] Part 1 week 1: 02/26/2021 Patient is [...] 0 Enrique RM et alJ Clin Oncol 2012;30:1510-3019. PAST MEDICAL HISTORY Diagnosis Date Status/Active Issues [...] cokes. Denies recreational drug use. 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 Patient understands that this participation is voluntary and may withdrawal at any time during the trial. Patient aware to RTC on 07/14/2021 for Week 21 of PTG 1Z21. [place] Lyons RN documented in this encounterWex[facility] Center04-07-2022 History of Present illness Narrative* [place] Lyons RN - 05/21/2021 1:05 PM EDTSummary: PTG 1Z21/21-283 Part 1 week 13 visit Title:A Phase 2 Study of the Hepcidin Mimetic PTG-300 in Patients with Phlebotomy-Requiring Polycythemia Vera Consent expiration 05/29/2021 Screening date: 02/12/2021 Screening #: [id number] Part 1 week 1: 02/26/2021 Patient is [...] 0 Enrique WILLINGHAM et alJ Clin Oncol 2012;30:9435-9784. PAST MEDICAL HISTORY Diagnosis Date Status/Active Issues [...] cokes. Denies recreational drug use. 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 Patient has contact information for [place] Lyosn RN Research Nurse and Dr. Ventura, along with the 24 hour On-Call number for the On-Call Oncology Fellow ([phone]). Patient understands that this participation is voluntary and may withdrawal at any time during the trial. Patient aware to RTC on 06/18/2021 for Week 17 of PTG 1Z21. [place] Lyons RN documented in this encounterWexner Medical Center04-07-2022 Nurse Note* Nargis Arita LPN - 05/21/2021 [...] No Does patient want to see a Retail Banker? No (yes to any of above refer patient to schedulers for dietitian appointment) ) Does patient have any new or increased numbness or tingling of extremities? No Is patient interested in fertility information? No Does patient need any prescription refills? No Does patient have an advanced directive in place? No, Patient refused referral to Social Work or Resource Center Electronically Signed By: Nargis Magovich, MEDICAL RECORD CODER documented in this encounterWexner Medical Center04-07-2022 History of Present illness Narrative* Meghan Graves APRN.WIRER PASSENGER CAR - 05/21/2021 10:30 AM EDT Some elements copied from my note on 04/23/2021, the elements have been updated and all reflect current decision making from today, 05/21/2021. [facility] Clinical Note Assessment and Plan In summary: [...] and 7.9% at 19 years. Leukemia. 2013 Oct;27(9):1874-81. By the classic thrombosis risk model, he [...] to 60 mg weekly 04/23/21. Meghan Graves APRN.WIRER PASSENGER CAR CC: Robert Merida, DO Visit Details Reffering Physician Robert Cummings [address] [place] [address] [place] [address] Reason for Visit Anil Leos is here [...] 0 Enrique RM et alJ Clin Oncol 2012;30:6838-9159. Review of Systems PAIN ASSESSMENT: Negative for [...] prior to this visit and those in [facility]. [facility] No data available for this section [facility] note* Diagnosis Polycythemia vera (HCC)- Primary documented in this encounter [facility] note* Diagnosis Polycythemia vera (HCC)- Primary documented in this encounter [facility] note* Diagnosis Polycythemia vera (HCC)- Primary documented in this encounter [facility] note* Diagnosis Polycythemia vera (HCC)- Primary documented in this encounter [facility] note* Diagnosis Polycythemia vera (HCC)- Primary documented in this encounter [facility] note* Diagnosis Polycythemia vera (HCC)- Primary documented in this encounter [facility] note* Diagnosis Polycythemia vera (HCC)- Primary documented in this encounter [facility] note* Diagnosis Polycythemia vera (HCC)- Primary documented in this encounter [facility] note* Diagnosis Splenomegaly, not elsewhere classified documented in this encounter [facility] note* 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 Chronic erythremia in remission documented in this encounter [facility] note* Diagnosis Polycythemia vera (HCC)- Primary documented in this encounter [facility] note* Diagnosis Polycythemia vera (HCC)- Primary documented in this encounter [facility] note* Diagnosis Polycythemia vera (HCC)- Primary documented in this encounter [facility] note* Diagnosis Polycythemia vera (HCC)- Primary documented in this encounter [facility] note* Diagnosis Polycythemia vera (HCC)- Primary documented in this encounter [facility] note* Diagnosis Polycythemia vera (HCC)- Primary documented in this encounter [facility] note* Diagnosis Polycythemia vera (HCC)- Primary documented in this encounter [facility] note* Diagnosis Polycythemia vera (HCC)- Primary documented in this encounter [facility] note* Diagnosis Splenomegaly, not elsewhere classified- Primary documented in this encounter [facility] note* Diagnosis Polycythemia vera (HCC)- Primary documented in this encounter [facility] note* Diagnosis Splenomegaly, not elsewhere classified documented in this encounter [facility] note* Diagnosis Polycythemia vera (HCC)- Primary documented in this encounter [facility] note* Diagnosis Polycythemia vera (HCC)- Primary documented in this encounter [facility] note* Diagnosis Polycythemia vera (HCC)- Primary Research study patient Dizziness Dizziness and giddiness documented in this encounter [facility] note* Diagnosis Polycythemia vera (HCC)- Primary documented in this encounter [facility] note* Diagnosis Polycythemia vera (HCC)- Primary documented in this encounter [facility] noteNo [employer] Other Evaluation note* Diagnosis PV (polycythemia vera) (HCC) Polycythemia vera documented in this encounter [facility] note* Diagnosis Polycythemia vera (HCC)- Primary Research study patient Bilateral cold feet documented in this encounter [facility] note* Diagnosis Polycythemia rubra vera (HCC)- Primary Polycythemia vera documented in this encounter [facility] note* Diagnosis Polycythemia vera (HCC)- Primary Research study patient documented in this encounter [facility] note* Diagnosis Polycythemia vera (HCC)- Primary documented in this encounter [facility] note* Diagnosis Polycythemia vera (HCC)- Primary documented in this encounter [facility] note* Diagnosis Polycythemia vera (HCC) documented in this encounter [facility] noteNo assessment information [facility] Work Phone: Evaluation note* Diagnosis Polycythemia vera (HCC)- Primary Research study patient documented in this encounter [facility] note* Diagnosis Onset Date Resolution Status Dysfunction of left eustachian tube acute Otitis media acute Seasonal allergic rhinitis due to pollen [facility] Work Phone: Evaluation note* Diagnosis Polycythemia vera (HCC)- Primary documented in this encounter [facility] note* Diagnosis Polycythemia vera (HCC) [D45]- Primary documented in this encounter [facility] note* Diagnosis Polycythemia vera (HCC)- Primary Research study patient documented in this encounter [facility] note* Diagnosis Polycythemia vera (HCC)- Primary Research study patient documented in this encounter [facility] note* Diagnosis PV (polycythemia vera) (HCC)- Primary Polycythemia vera documented in this encounter [facility] note* Diagnosis Onset Date Resolution Status Admit Date Polycythemia vera acute May 182024 9:25am Screening PSA (prostate spec ific antigen) acute May 18, 2024 9:25am Wellness examination acute Apri 2024 9:25am [facility] Work Phone: History general Narrative - Reported* Type Description [...] LEFT CLAVICAL Hospitalization History SEE SURGICAL HX Taggled Other [facility] general Narrative - Reported* Type Description Date [...] LEFT CLAVICAL Hospitalization History SEE SURGICAL HX Taggled Other Hospital Discharge instructions No data available for this section [facility] Summary Purpose Family History Relationship Condition Age at Onset Recorded Date/T sue father Diabetes mellitus Unknown Hypertension Unknown Not Specified Heart disease Unknown Malignant neoplasm Unknown Relationship Condition Age at Onset Recorded Date/T sue father Diabetes mellitus Unknown Hypertension Unknown mother Heart disease Unknown Malignant neoplasm Unknown Advance Directives Advance Directive Response Recorded Date/ Time Advance Directives No May 30, 024 9:04am Reason for Referral Specialty Diagnoses / Procedures Referred By Contac t Referred To Contact CT IMAGING Diagnoses Polycythemia vera (HCC) Procedures CT ABDOMEN WO IVCON CT ABDOMEN W/O CONTRAST Annie Abreu APRN.WIRER PASSENGER CAR [address] [place] [id number] [facility] [place] [address] Referral ID Status Reason Start Date Expiration Date V isits Requested Visits Authorized [id number] Closed Auto-Generate d Referral 05/19/2023 04/29/2024 1 1 Specialty Diagnoses / Procedures Referred By Contac t Referred To Contact CT IMAGING Diagnoses PV (polycythemia vera) (HCC) Procedures CT ABDOMEN WO IVCON [place] ABDOMEN [place] [id number] [place] [id number] [facility] [place] [address] Referral ID Status Reason Start Date Expiration Date V isits Requested Visits Authorized [id number] Closed Auto-Generate d Referral 12/02/2022 12/11/2023 1 1 Specialty Diagnoses / Procedures Referred By Contac t Referred To Contact CT IMAGING Diagnoses Splenomegaly, not elsewhere classified Procedures CT ABDOMEN WO IVCON CT ABDOMEN W/O CONTRAST Elizabeth Dunn APRN.WIRER PASSENGER CAR [address] [place] [id number] Imaging Referral ID Status Reason Start Date Expiration Date V isits Requested Visits Authorized [id number] Closed Auto-Generate d Referral 05/22/2021 10/06/2021 1 1 Chief Complaint and Reason for Visit Chief Complaint allergy shot Chief Complaint allergy shot left ear pain Reason for Visit Dysfunction of left eustachian tube Otitis media Seasonal allergic rhinitis due to pollen Chief Complaint Admit Date Wellness May 18, 2024 9:25 am Reason for Visit Admit Date Polycythemia vera May 18, 2024 9:25 am Screening PSA (prostate specific antigen ) May 18, 2024 9:25am Wellness examination May 18, 2024 9:2 5am Additional Source Comments Source Comments (unrecognize d section and content) In the event this informatio n is protected by the Federal Confidentiality of Alcohol and Drug Abuse Patient Records regulations: The Federal rules restrict any use of the information to criminally investigate or prosecute any alcohol or drug abuse patient.[facility] CenterIn the event this information is protected by the Federal Confidentiality of Alcohol and Drug Abuse Patient Records regulations: The Federal rules restrict any use of the information to criminally investigate or prosecute any alcohol or drug abuse patient.[facility] CenterIn the event this information is protected by the Federal Confidentiality of Alcohol and Drug Abuse Patient Records regulations: The Federal rules restrict any use of the information to criminally investigate or prosecute any alcohol or drug abuse patient.[facility] CenterIn the event this information is protected by the Federal Confidentiality of Alcohol and Drug Abuse Patient Records regulations: The Federal rules restrict any use of the information to criminally investigate or prosecute any alcohol or drug abuse patient.[facility] CenterIn the event this information is protected by the Federal Confidentiality of Alcohol and Drug Abuse Patient Records regulations: The Federal rules restrict any use of the information to criminally investigate or prosecute any alcohol or drug abuse patient.[facility] CenterIn the event this information is protected by the Federal Confidentiality of Alcohol and Drug Abuse Patient Records regulations: The Federal rules restrict any use of the information to criminally investigate or prosecute any alcohol or drug abuse patient.[facility] CenterIn the event this information is protected by the Federal Confidentiality of Alcohol and Drug Abuse Patient Records regulations: The Federal rules restrict any use of the information to criminally investigate or prosecute any alcohol or drug abuse patient.[facility] CenterIn the event this information is protected by the Federal Confidentiality of Alcohol and Drug Abuse Patient Records regulations: The Federal rules restrict any use of the information to criminally investigate or prosecute any alcohol or drug abuse patient.[facility] CenterIn the event this information is protected by the Federal Confidentiality of Alcohol and Drug Abuse Patient Records regulations: The Federal rules restrict any use of the information to criminally investigate or prosecute any alcohol or drug abuse patient.[facility] CenterIn the event this information is protected by the Federal Confidentiality of Alcohol and Drug Abuse Patient Records regulations: The Federal rules restrict any use of the information to criminally investigate or prosecute any alcohol or drug abuse patient.[facility] CenterIn the event this information is protected by the Federal Confidentiality of Alcohol and Drug Abuse Patient Records regulations: The Federal rules restrict any use of the information to criminally investigate or prosecute any alcohol or drug abuse patient.[facility] CenterIn the event this information is protected by the Federal Confidentiality of Alcohol and Drug Abuse Patient Records regulations: The Federal rules restrict any use of the information to criminally investigate or prosecute any alcohol or drug abuse patient.[facility] CenterIn the event this information is protected by the Federal Confidentiality of Alcohol and Drug Abuse Patient Records regulations: The Federal rules restrict any use of the information to criminally investigate or prosecute any alcohol or drug abuse patient.[facility] CenterIn the event this information is protected by the Federal Confidentiality of Alcohol and Drug Abuse Patient Records regulations: The Federal rules restrict any use of the information to criminally investigate or prosecute any alcohol or drug abuse patient.[facility] CenterIn the event this information is protected by the Federal Confidentiality of Alcohol and Drug Abuse Patient Records regulations: The Federal rules restrict any use of the information to criminally investigate or prosecute any alcohol or drug abuse patient.[facility] CenterIn the event this information is protected by the Federal Confidentiality of Alcohol and Drug Abuse Patient Records regulations: The Federal rules restrict any use of the information to criminally investigate or prosecute any alcohol or drug abuse patient.[facility] CenterIn the event this information is protected by the Federal Confidentiality of Alcohol and Drug Abuse Patient Records regulations: The Federal rules restrict any use of the information to criminally investigate or prosecute any alcohol or drug abuse patient.[facility] CenterIn the event this information is protected by the Federal Confidentiality of Alcohol and Drug Abuse Patient Records regulations: The Federal rules restrict any use of the information to criminally investigate or prosecute any alcohol or drug abuse patient.[facility] CenterIn the event this information is protected by the Federal Confidentiality of Alcohol and Drug Abuse Patient Records regulations: The Federal rules restrict any use of the information to criminally investigate or prosecute any alcohol or drug abuse patient.[facility] CenterIn the event this information is protected by the Federal Confidentiality of Alcohol and Drug Abuse Patient Records regulations: The Federal rules restrict any use of the information to criminally investigate or prosecute any alcohol or drug abuse patient.[facility] CenterIn the event this information is protected by the Federal Confidentiality of Alcohol and Drug Abuse Patient Records regulations: The Federal rules restrict any use of the information to criminally investigate or prosecute any alcohol or drug abuse patient.[facility] CenterIn the event this information is protected by the Federal Confidentiality of Alcohol and Drug Abuse Patient Records regulations: The Federal rules restrict any use of the information to criminally investigate or prosecute any alcohol or drug abuse patient.[facility] CenterIn the event this information is protected by the Federal Confidentiality of Alcohol and Drug Abuse Patient Records regulations: The Federal rules restrict any use of the information to criminally investigate or prosecute any alcohol or drug abuse patient.[facility] CenterIn the event this information is protected by the Federal Confidentiality of Alcohol and Drug Abuse Patient Records regulations: The Federal rules restrict any use of the information to criminally investigate or prosecute any alcohol or drug abuse patient.[facility] CenterIn the event this information is protected by the Federal Confidentiality of Alcohol and Drug Abuse Patient Records regulations: The Federal rules restrict any use of the information to criminally investigate or prosecute any alcohol or drug abuse patient.[facility] CenterIn the event this information is protected by the Federal Confidentiality of Alcohol and Drug Abuse Patient Records regulations: The Federal rules restrict any use of the information to criminally investigate or prosecute any alcohol or drug abuse patient.[facility] CenterIn the event this information is protected by the Federal Confidentiality of Alcohol and Drug Abuse Patient Records regulations: The Federal rules restrict any use of the information to criminally investigate or prosecute any alcohol or drug abuse patient.[facility] CenterIn the event this information is protected by the Federal Confidentiality of Alcohol and Drug Abuse Patient Records regulations: The Federal rules restrict any use of the information to criminally investigate or prosecute any alcohol or drug abuse patient.[facility] CenterIn the event this information is protected by the Federal Confidentiality of Alcohol and Drug Abuse Patient Records regulations: The Federal rules restrict any use of the information to criminally investigate or prosecute any alcohol or drug abuse patient.[facility] CenterIn the event this information is protected by the Federal Confidentiality of Alcohol and Drug Abuse Patient Records regulations: The Federal rules restrict any use of the information to criminally investigate or prosecute any alcohol or drug abuse patient.[facility] CenterIn the event this information is protected by [...] or prosecute any alcohol or drug abuse patient.[facility] CenterIn the event this information is protected by the Federal Confidentiality of Alcohol and Drug Abuse Patient Records regulations: The Federal rules restrict any use of the information to criminally investigate or prosecute any alcohol or drug abuse patient.[facility] CenterIn the event this information is protected by the Federal Confidentiality of Alcohol and Drug Abuse Patient Records regulations: The Federal rules restrict any use of the information to criminally investigate or prosecute any alcohol or drug abuse patient.[facility] CenterIn the event this information is protected by the Federal Confidentiality of Alcohol and Drug Abuse Patient Records regulations: The Federal rules restrict any use of the information to criminally investigate or prosecute any alcohol or drug abuse patient.[facility] CenterIn the event this information is protected by the Federal Confidentiality of Alcohol and Drug Abuse Patient Records regulations: The Federal rules restrict any use of the information to criminally investigate or prosecute any alcohol or drug abuse patient.[facility] CenterIn the event this information is protected by the Federal Confidentiality of Alcohol and Drug Abuse Patient Records regulations: The Federal rules restrict any use of the information to criminally investigate or prosecute any alcohol or drug abuse patient.[facility] CenterIn the event this information is protected by the Federal Confidentiality of Alcohol and Drug Abuse Patient Records regulations: The Federal rules restrict any use of the information to criminally investigate or prosecute any alcohol or drug abuse patient.[facility] CenterIn the event this information is protected by the Federal Confidentiality of Alcohol and Drug Abuse Patient Records regulations: The Federal rules restrict any use of the information to criminally investigate or prosecute any alcohol or drug abuse patient.[facility] CenterIn the event this information is protected by the Federal Confidentiality of Alcohol and Drug Abuse Patient Records regulations: The Federal rules restrict any use of the information to criminally investigate or prosecute any alcohol or drug abuse patient.[facility] CenterIn the event this information is protected by the Federal Confidentiality of Alcohol and Drug Abuse Patient Records regulations: The Federal rules restrict any use of the information to criminally investigate or prosecute any alcohol or drug abuse patient.[facility] CenterIn the event this information is protected by the Federal Confidentiality of Alcohol and Drug Abuse Patient Records regulations: The Federal rules restrict any use of the information to criminally investigate or prosecute any alcohol or drug abuse patient.[facility] CenterIn the event this information is protected by the Federal Confidentiality of Alcohol and Drug Abuse Patient Records regulations: The Federal rules restrict any use of the information to criminally investigate or prosecute any alcohol or drug abuse patient.[facility] CenterIn the event this information is protected by the Federal Confidentiality of Alcohol and Drug Abuse Patient Records regulations: The Federal rules restrict any use of the information to criminally investigate or prosecute any alcohol or drug abuse patient.[facility] CenterIn the event this information is protected by the Federal Confidentiality of Alcohol and Drug Abuse Patient Records regulations: The Federal rules restrict any use of the information to criminally investigate or prosecute any alcohol or drug abuse patient.[facility] CenterIn the event this information is protected by the Federal Confidentiality of Alcohol and Drug Abuse Patient Records regulations: The Federal rules restrict any use of the information to criminally investigate or prosecute any alcohol or drug abuse patient.[facility] CenterIn the event this information is protected by the Federal Confidentiality of Alcohol and Drug Abuse Patient Records regulations: The Federal rules restrict any use of the information to criminally investigate or prosecute any alcohol or drug abuse patient.[facility] CenterIn the event this information is protected by the Federal Confidentiality of Alcohol and Drug Abuse Patient Records regulations: The Federal rules restrict any use of the information to criminally investigate or prosecute any alcohol or drug abuse patient.[facility] CenterIn the event this information is protected by the Federal Confidentiality of Alcohol and Drug Abuse Patient Records regulations: The Federal rules restrict any use of the information to criminally investigate or prosecute any alcohol or drug abuse patient.[facility] CenterIn the event this information is protected by the Federal Confidentiality of Alcohol and Drug Abuse Patient Records regulations: The Federal rules restrict any use of the information to criminally investigate or prosecute any alcohol or drug abuse patient.[facility] CenterIn the event this information is protected by the Federal Confidentiality of Alcohol and Drug Abuse Patient Records regulations: The Federal rules restrict any use of the information to criminally investigate or prosecute any alcohol or drug abuse patient.[facility] CenterIn the event this information is protected by the Federal Confidentiality of Alcohol and Drug Abuse Patient Records regulations: The Federal rules restrict any use of the information to criminally investigate or prosecute any alcohol or drug abuse patient.[facility] CenterIn the event this information is protected by the Federal Confidentiality of Alcohol and Drug Abuse Patient Records regulations: The Federal rules restrict any use of the information to criminally investigate or prosecute any alcohol or drug abuse patient.[facility] CenterIn the event this information is protected by the Federal Confidentiality of Alcohol and Drug Abuse Patient Records regulations: The Federal rules restrict any use of the information to criminally investigate or prosecute any alcohol or drug abuse patient.[facility] CenterIn the event this information is protected by the Federal Confidentiality of Alcohol and Drug Abuse Patient Records regulations: The Federal rules restrict any use of the information to criminally investigate or prosecute any alcohol or drug abuse patient.[facility] CenterIn the event this information is protected by the Federal Confidentiality of Alcohol and Drug Abuse Patient Records regulations: The Federal rules restrict any use of the information to criminally investigate or prosecute any alcohol or drug abuse patient.[facility] CenterIn the event this information is protected by the Federal Confidentiality of Alcohol and Drug Abuse Patient Records regulations: The Federal rules restrict any use of the information to criminally investigate or prosecute any alcohol or drug abuse patient.[facility] CenterIn the event this information is protected by the Federal Confidentiality of Alcohol and Drug Abuse Patient Records regulations: The Federal rules restrict any use of the information to criminally investigate or prosecute any alcohol or drug abuse patient.[facility] CenterIn the event this information is protected by the Federal Confidentiality of Alcohol and Drug Abuse Patient Records regulations: The Federal rules restrict any use of the information to criminally investigate or prosecute any alcohol or drug abuse patient.[facility] CenterIn the event this information is protected by the Federal Confidentiality of Alcohol and Drug Abuse Patient Records regulations: The Federal rules restrict any use of the information to criminally investigate or prosecute any alcohol or drug abuse patient.[facility] CenterIn the event this information is protected by the Federal Confidentiality of Alcohol and Drug Abuse Patient Records regulations: The Federal rules restrict any use of the information to criminally investigate or prosecute any alcohol or drug abuse patient.[facility] CenterIn the event this information is protected by the Federal Confidentiality of Alcohol and Drug Abuse Patient Records regulations: The Federal rules restrict any use of the information to criminally investigate or prosecute any alcohol or drug abuse patient.[facility] CenterIn the event this information is protected by the Federal Confidentiality of Alcohol and Drug Abuse Patient Records regulations: The Federal rules restrict any use of the information to criminally investigate or prosecute any alcohol or drug abuse patient.[facility] CenterIn the event this information is protected by the Federal Confidentiality of Alcohol and Drug Abuse Patient Records regulations: The Federal rules restrict any use of the information to criminally investigate or prosecute any alcohol or drug abuse patient.[facility] CenterIn the event this information is protected by the Federal Confidentiality of Alcohol and Drug Abuse Patient Records regulations: The Federal rules restrict any use of the information to criminally investigate or prosecute any alcohol or drug abuse patient.[facility] CenterIn the event this information is protected by the Federal Confidentiality of Alcohol and Drug Abuse Patient Records regulations: The Federal rules restrict any use of the information to criminally investigate or prosecute any alcohol or drug abuse patient.[facility] CenterIn the event this information is protected by the Federal Confidentiality of Alcohol and Drug Abuse Patient Records regulations: The Federal rules restrict any use of the information to criminally investigate or prosecute any alcohol or drug abuse patient.[facility] CenterIn the event this information is protected by the Federal Confidentiality of Alcohol and Drug Abuse Patient Records regulations: The Federal rules restrict any use of the information to criminally investigate or prosecute any alcohol or drug abuse patient.[facility] CenterIn the event this information is protected by the Federal Confidentiality of Alcohol and Drug Abuse Patient Records regulations: The Federal rules restrict any use of the information to criminally investigate or prosecute any alcohol or drug abuse patient.[facility] CenterIn the event this information is protected by the Federal Confidentiality of Alcohol and Drug Abuse Patient Records regulations: The Federal rules restrict any use of the information to criminally investigate or prosecute any alcohol or drug abuse patient.[facility] CenterIn the event this information is protected by the Federal Confidentiality of Alcohol and Drug Abuse Patient Records regulations: The Federal rules restrict any use of the information to criminally investigate or prosecute any alcohol or drug abuse patient.[facility] CenterIn the event this information is protected by the Federal Confidentiality of Alcohol and Drug Abuse Patient Records regulations: The Federal rules restrict any use of the information to criminally investigate or prosecute any alcohol or drug abuse patient.[facility] CenterIn the event this information is protected by the Federal Confidentiality of Alcohol and Drug Abuse Patient Records regulations: The Federal rules restrict any use of the information to criminally investigate or prosecute any alcohol or drug abuse patient.[facility] CenterIn the event this information is protected by the Federal Confidentiality of Alcohol and Drug Abuse Patient Records regulations: The Federal rules restrict any use of the information to criminally investigate or prosecute any alcohol or drug abuse patient.[facility] CenterIn the event this information is protected by the Federal Confidentiality of Alcohol and Drug Abuse Patient Records regulations: The Federal rules restrict any use of the information to criminally investigate or prosecute any alcohol or drug abuse patient.[facility] CenterIn the event this information is protected by the Federal Confidentiality of Alcohol and Drug Abuse Patient Records regulations: The Federal rules restrict any use of the information to criminally investigate or prosecute any alcohol or drug abuse patient.[facility] Reason for Visit (unrecogniz ed section and content) Reason Comments Radiology CT Specialty Diagnoses / Procedures Referred By Contac t Referred To Contact CT IMAGING Diagnoses Splenomegaly, not elsewhere classified Procedures CT ABDOMEN WO IVCON CT ABDOMEN W/O CONTRAST Meghan Graves, SCHOOL LUNCH MANAGER.WIRER PASSENGER CAR [address] [place] [address] Ct Imaging Referral ID Status Reason Start Date Expiration Date V isits Requested Visits Authorized [id number] Closed Auto-Generate d Referral 02/22/2022 03/24/2023 1 1 Reason Comments Established Patient Specialty Diagnoses / Procedures Referred By Contac t Referred To Contact Hematology/Oncology / HEMATOLOGY/ONCOLOGY Diagnoses Polycythemia vera STUDY PT IRB NCT [id number] D4.5 DATE TIME PER SLIP QIANA C Procedures EST PATIENT/ASMT Bryce Ventura MD [address] [place] [address] Bryce Ventura MD [address] [place], [place] [id number] Referral ID Status Reason Start Date Expiration Date V isits Requested Visits Authorized [id number] Waiting for Response 09/10/2021 12/09/2021 1 1 Reason Comments Research PTG Part 1 week 13 visit Reason Comments Research PTG Part 1 week 17 visit Reason Comments Research PTG part 1 week 21 visit Reason Comments Research PTG week 25 visit Reason Comments Patient Question Research PTG Reason Comments Opened In Error Reason Comments Research PTG Pa rt 2 week 29 Specialty Diagnoses / Procedures Referred By Bisi jenkins Referred To Contact Radiology / RADIO CT SCAN MAIN CA LL Diagnoses Polycythemia vera STUDY PT NO AUTH NEEDED CHARGE TO RESEARCH IRB [facility] [id number] D4.5 CT ABDOMEN W/O CONTRAST /NO IV OR PO PER SLIP QIANA C Procedures CT ABD & PELVIS W/CONTRAST CT WO ABD1 400 Bryce Ventura MD [address] [place] [address] Scan Main Ca Ll [address] [place], [place] [id number] Referral ID Status Reason Start Date Expiration Date Visits Re quested Visits Authorized [id number] Closed 09/10/2021 12/09/2021 1 1 Reason Comments Research PTG Part 2 week 33 visit Specialty Diagnoses / Procedures Referred By Bisi jenkins Referred To Contact Hematology/Oncology / HEMATOLOGY/ONCOLOGY Diagnoses 152 MT pt aware he is early STUDY PT IRB [facility] [id number] D4.5 DATE TIME RESCHEDULE QIANA C Procedures EST PATIENT/[place] [address] [place] [address] Elizabeth Dunn APRN.WIRER PASSENGER CAR [address] [place] [address] Referral ID Status Reason Start Date Expiration Date V isits Requested Visits Authorized [id number] Pending Review 08/11/2021 11/09/2021 1 1 Reason [...] CT ABDOMEN W/[place] [address] [place] [address] [place] [address] Referral ID Status Reason Start Date Expiration Date V isits Requested Visits Authorized [id number] Closed Auto-Generate d Referral 12/02/2022 12/11/2023 1 1 Reason Comments Appointment Rescheduled Reason Comments Research PTG Part 3 Cycle 16 day 1 visit Reason Comments Research PTG cons ent presentation Reason Comments Benefits Investigation Reason Comments Research PTG EOT [place] r to PTG 1922 C1D1 Enrollment Reason Comments Research PTG Pt s igned informed consent Reason Comments Research PTG EOT visitPTG -108 Screening/Week 0 visit Specialty Diagnoses / Procedures Referred By Contac t Referred To Contact CT IMAGING Diagnoses Polycythemia vera (HCC) Procedures CT ABDOMEN WO IVCON CT ABDOMEN W/O CONTRAST Annie Abreu, JACKELYN.WIRER PASSENGER CAR [address] [place] [address] [place] [address] Referral ID Status Reason Start Date Expiration Date V isits Requested Visits Authorized [id number] Closed Auto-Generate d Referral 05/19/2023 04/29/2024 1 1 Reason Comments Research PTG 24-180 Week 4 visit Reason Comments Research PTG -180 Week 8 visit Reason Comments Research PTG 1923 WK 24 Reason Comments Research PTG -180 Week 24 visit Reason Comments Established Patient Follow-Up Reason Comments Research PTG 1923 Week 36 Reason Comments Research PTG -180 Week 36 visit Reason Comments Research PTG 1923 W48 Reason Comments Research PTG -180 Week 48 visit Care Teams (unrecognized sec tion and content) Warehouse Assembly Worker Relationship Specialty Start Date End Date Tigre Merida, DO [address] [id number] PCP - General Internal Medicine 10/16/20 [place] [address] [place] [address] Physician Hematology/Oncology 12/30/20 Hannah Lyons RN [address] [place] [address] Research Nurse Hematology 03/10/21 Warehouse Assembly Worker Relationship Specialty Start Date End Date Tigre Merida DO [address] [place] [address] PCP - General Internal Medicine 10/16/20 [place] [address] [place] [address] Physician Hematology/Oncology 12/30/20 Hannah Lyons, ALEXANDRO [address] [place] [address] Research Nurse Hematology 03/10/21 Warehouse Assembly Worker Relationship Specialty Start Date End Date Tigre Merida DO [address] [place] [address] PCP - General Internal Medicine 10/16/20 [place] [address] [place] [address] Physician Hematology/Oncology 12/30/20 Hannah Lyons, ALEXANDRO [address] [place] [address] 52117 Research Nurse Hematology 03/10/21 Warehouse Assembly Worker Relationship Specialty Start Date End Date Tigre Merida, DO [address] [place] [address] PCP - General Internal Medicine 10/16/20 [place] [address] [place] [address] Physician Hematology/Oncology 12/30/20 Hannah Lyons, ALEXANDRO [address] [place] [address] 78921 Research Nurse Hematology 03/10/21 Warehouse Assembly Worker Relationship Specialty Start Date End Date Tigre Merida, DO [address] [place] [address] PCP - General Internal Medicine 10/16/20 [place] [address] [place] [address] Physician Hematology/Oncology 12/30/20 Hannah Lyons, ALEXANDRO [address] [place] [address] 11779 Research Nurse Hematology 03/10/21 Warehouse Assembly Worker Relationship Specialty Start Date End Date Tigre Merida, DO [address] [place] [address] PCP - General Internal Medicine 10/16/20 [place] [address] [place] [address] Physician Hematology/Oncology 12/30/20 Hannah Lyons, ALEXANDRO [address] [place] [address] 02564 Research Nurse Hematology 03/10/21 Warehouse Assembly Worker Relationship Specialty Start Date End Date Tigre Merida, DO [address] [place] [address] PCP - General Internal Medicine 10/16/20 [place] [address] [place] [address] Physician Hematology/Oncology 12/30/20 Hannah Lyons, ALEXANDRO [address] [place] [address]483 Research Nurse Hematology 03/10/21 Warehouse Assembly Worker Relationship Specialty Start Date End Date Tigre Merida, DO [address] [place] [address] PCP - General Internal Medicine 10/16/20 [place] [address] [place] [address] Physician Hematology/Oncology 12/30/20 Hannah Lyons RN [address] [place] [address]143 Research Nurse Hematology 03/10/21 Warehouse Assembly Worker Relationship Specialty Start Date End Date Tigre Merida, DO [address] [place] [address] PCP - General Internal Medicine 10/16/20 [place] [address] [place] [address] Physician Hematology/Oncology 12/30/20 Hannah Lyons, ALEXANDRO [address] [place] [address]642 Research Nurse Hematology 03/10/21 Warehouse Assembly Worker Relationship Specialty Start Date End Date Tigre Merida, DO [address] [place] [address] PCP - General Internal Medicine 10/16/20 [place] [address] [place] [address] Physician Hematology/Oncology 12/30/20 Hannah Lyons, ALEXANDRO [address] [place] [address] 62880 Research Nurse Hematology 03/10/21 Warehouse Assembly Worker Relationship Specialty Start Date End Date Tigre Merida, DO [address] [place] [address] PCP - General Internal Medicine 10/16/20 [place] [address] [place] [address] Physician Hematology/Oncology 12/30/20 Hannah Lyons, ALEXANDRO [address] [place] [address] 17121 Research Nurse Hematology 03/10/21 Warehouse Assembly Worker Relationship Specialty Start Date End Date Tigre Merida, DO [address] [place] [address] PCP - General Internal Medicine 10/16/20 [place] [address] [place] [address] Physician Hematology/Oncology 12/30/20 Hannah Lyons, ALEXANDRO [address] [place] [address] 85378 Research Nurse Hematology 03/10/21 Warehouse Assembly Worker Relationship Specialty Start Date End Date Tigre Merida, DO [address] [place] [address] PCP - General Internal Medicine 10/16/20 [place] [address] [place] [address] Physician Hematology/Oncology 12/30/20 Hannah Lyons, ALEXANDRO [address] [place] [address] 19415 Research Nurse Hematology 03/10/21 Warehouse Assembly Worker Relationship Specialty Start Date End Date Tiger Merida, DO [address] [place] [address] PCP - General Internal Medicine 10/16/20 [place] [address] [place] [address] Physician Hematology/Oncology 12/30/20 Hannah Lyons RN [address] [place] [address] 96827 Research Nurse Hematology 03/10/21 Warehouse Assembly Worker Relationship Specialty Start Date End Date Tigre Merida, DO [address] [place] [address] PCP - General Internal Medicine 10/16/20 [place] [address] [place] [address] Physician Hematology/Oncology 12/30/20 Hannah Lyons RN [address] [place] [address] 31822 Research Nurse Hematology 03/10/21 Warehouse Assembly Worker Relationship Specialty Start Date End Date Tigre Merida, DO [address] [place] [address] PCP - General Internal Medicine 10/16/20 [place] [address] [place] [address] Physician Hematology/Oncology 12/30/20 Hannah Lyons, ALEXANDRO [address] [place] [address] 48535 Research Nurse Hematology 03/10/21 Warehouse Assembly Worker Relationship Specialty Start Date End Date Tigre Merida, DO [address] [place] [address] PCP - General Internal Medicine 10/16/20 [place] [address] [place] [address] Physician Hematology/Oncology 12/30/20 Hannah Lyons, ALEXANDRO [address] [place] [address] 55964 Research Nurse Hematology 03/10/21 Warehouse Assembly Worker Relationship Specialty Start Date End Date Tigre Merida, DO [address] [place] [address] PCP - General Internal Medicine 10/16/20 [place] [address] [place] [address] Physician Hematology/Oncology 12/30/20 Hannah Lyons, ALEXANDRO [address] [place] [address] 47689 Research Nurse Hematology 03/10/21 Warehouse Assembly Worker Relationship Specialty Start Date End Date Tigre Merida, DO [address] [place] [address] PCP - General Internal Medicine 10/16/20 [place] [address] [place] [address] Physician Hematology/Oncology 12/30/20 Hannah Lyons, ALEXANDRO [address] [place] [address] 28633 Research Nurse Hematology 03/10/21 Warehouse Assembly Worker Relationship Specialty Start Date End Date Tigre Merida DO [address] [place] [address] PCP - General Internal Medicine 10/16/20 Bryce Ventura MD [facility] [place] [address] Physician Hematology/Oncology 12/30/20 Hannah Lyons RN [address] [place] [address] 84003 Research Nurse Hematology 03/10/21 Warehouse Assembly Worker Relationship Specialty Start Date End Date Tigre Merida DO [address] [place] [address] PCP - General Internal Medicine 10/16/20 [place] [address] [place] [address] Physician Hematology/Oncology 12/30/20 Hannah Lyons RN [address] [place] [address] 98810 Research Nurse Hematology 03/10/21 Warehouse Assembly Worker Relationship Specialty Start Date End Date Tigre Merida DO [address] [place] [address] PCP - General Internal Medicine 10/16/20 [place] [address] [place] [address] Physician Hematology/Oncology 12/30/20 Hannah Lyons RN [address] [place] [address] 63857 Research Nurse Hematology 03/10/21 Warehouse Assembly Worker Relationship Specialty Start Date End Date Tigre Merida DO [address] [place] [address] PCP - General Internal Medicine 10/16/20 [place] [address] [place] [address] Physician Hematology/Oncology 12/30/20 Hannah Lyons RN [address] [place] [address] 44189 Research Nurse Hematology 03/10/21 Warehouse Assembly Worker Relationship Specialty Start Date End Date Tigre Merida DO [address] [place] [address] PCP - General Internal Medicine 10/16/20 [place] [address] [place] [address] Physician Hematology/Oncology 12/30/20 Hannah Lyons RN [address] [place] [address] 11021 Research Nurse Hematology 03/10/21 Warehouse Assembly Worker Relationship Specialty Start Date End Date Tigre Merida DO [address] [place] [address] PCP - General Internal Medicine 10/16/20 [place] [address] [place] [address] Physician Hematology/Oncology 12/30/20 Hannah Lyons RN [address] [place] [address] 24954 Research Nurse Hematology 03/10/21 Warehouse Assembly Worker Relationship Specialty Start Date End Date Tigre Merida DO [address] [place] [address] PCP - General Internal Medicine 10/16/20 [place] [address] [place] [address] Physician Hematology/Oncology 12/30/20 Hannah Lyons RN [address] [place] [address] 80435 Research Nurse Hematology 03/10/21 Warehouse Assembly Worker Relationship Specialty Start Date End Date Tigre Merida DO [address] [place] [address] PCP - General Internal Medicine 10/16/20 [place] [address] [place] [address] Physician Hematology/Oncology 12/30/20 Hannah Lyons RN [address] [place] [address] 93372 Research Nurse Hematology 03/10/21 Warehouse Assembly Worker Relationship Specialty Start Date End Date Tigre Merida DO [address] [place] [address] PCP - General Internal Medicine 10/16/20 [place] [address] [place] [address] Physician Hematology/Oncology 12/30/20 Hannah Lyons RN [address] [place] [address] 24172 Research Nurse Hematology 03/10/21 Warehouse Assembly Worker Relationship Specialty Start Date End Date Tigre Merida DO [address] [place] [address] PCP - General Internal Medicine 10/16/20 [place] [address] [place] [address] Physician Hematology/Oncology 12/30/20 Hannah Lyons RN [address] [place] [address] 77502 Research Nurse Hematology 03/10/21 Warehouse Assembly Worker Relationship Specialty Start Date End Date Tigre Merida DO [address] [place] [address] PCP - General Internal Medicine 10/16/20 [place] [address] [place] [address] Physician Hematology/Oncology 12/30/20 Hannah Lyons, ALEXANDRO [address] [place] [address] 92542 Research Nurse Hematology 03/10/21 Warehouse Assembly Worker Relationship Specialty Start Date End Date Tigre Merida DO [address] [place] [address] PCP - General Internal Medicine 10/16/20 [place] [address] [place] [address] Physician Hematology/Oncology 12/30/20 Hannah Lyons, ALEXANDRO [address] [place] [address] 49302 Research Nurse Hematology 03/10/21 Team Status: Active Member Role Status Dates Tigre Merida DO Primary Care Provider Active Team Status: Active Member Role Status Dates Tigre Merida DO Primary Care Provide r, Attending Provider Active Start: May 19, 2023 Team Status: Inactive Member Role Status Dates Tigre Merida DO Primary Care Provide r, Attending Provider Active Start: May 31, 2023 End: May 31, 2023 Warehouse Assembly Worker Relationship Specialty Start Date End Date Tigre Merida DO [address] [place] [address] PCP - General Internal Medicine 10/16/20 [place] [address] [place] [address] Physician Hematology/Oncology 12/30/20 Hannah Lyons RN [address] [place] [address] 23339 Research Nurse Hematology 03/10/21 Warehouse Assembly Worker Relationship Specialty Start Date End Date Tigre Merida DO [address] [place] [address] PCP - General Internal Medicine 10/16/20 [place] [address] [place] [address] Physician Hematology/Oncology 12/30/20 Hannah Lyons RN [address] [place] [address] 49688 Research Nurse Hematology 03/10/21 Warehouse Assembly Worker Relationship Specialty Start Date End Date Tigre Merida DO [address] [place] [address] PCP - General Internal Medicine 10/16/20 [place] [address] [place] [address] Physician Hematology/Oncology 12/30/20 Hannah Lyons RN [address] [place] [id number] Research Nurse Hematology 03/10/21 Warehouse Assembly Work[employer] Relationship Specialty Start Date End Date Tigre Merida DO [address] [place] [address] PCP - General Internal Medicine 10/16/20 [place] [address] [place] [address] Physician Hematology/Oncology 12/30/20 Hannah Lyons RN [address] [place] [id number] Research Nurse Hematology 03/10/21 Team Status: Active Member Role Status Dates Tigre Merida DO Primary Care Provide r, Attending Provider Active Start: June 16, 2023 Team Status: Active Member Role Status Dates Tigre Merida DO Primary Care Provide r, Attending Provider Active Start: July 14, 2023 Team Status: Inactive Member Role Status Dates Tigre Merida DO Primary Care Provider Active Start: July 19, 2023 End: July 19, 2023 Faiza Hamlin APRN [employer] Attending Provider Act froylan Start: July 19, 2023 End: July 19, 2023 Warehouse Assembly Worker Relationship Specialty Start Date End Date Tigre Merida DO [address] [place] [address] PCP - General Internal Medicine 10/16/20 [place] [address] [place] [address] Physician Hematology/Oncology 12/30/20 Hannah Lyons RN [address] [place] [id number] Research Nurse Hematology 03/10/21 Team Status: Active Member Role Status Dates Tigre Merida DO Primary Care Provide r, Attending Provider Active Start: April 17, 2024 Team Status: Inactive Member Role Status Dates Tigre Merida DO Primary Care Provide r, Attending Provider Active Start: May 18, 2024 End: May 18, 2024 (unrecognized sect ion and content) No Status Records FoundNo Status Records FoundNo Status Records Found INFORMATION SOURCE (unrecogn ized section and content) DATE CREATED AUTHOR 06/08/2021 [facility] DATE CREATED AUTHOR AUTHOR'S ORGANIZ ATION 09/18/2021 [facility] [place] [facility] DATE CREATED AUTHOR AUTHOR'S ORGANIZ ATION 05/05/2024 [facility] Inactive Administered Medications - up [...] BE BASED ON THE PRIMARY CLINICAL RECORDS. [address] [employer] [facility]. provides no warranty or guarantee of the accuracy or completeness of information in this document.
[2024-05-19 07:09] LABS: Basophils Absolute Auto 0.2 10^3/uL (0.0-0.1); Basophils Percent Auto 1.4 % (0.2-2.0); Eosinophils Absolute Auto 0.4 10^3/uL (0.0-0.7); Eosinophils Percent Auto 3.4 % (0.9-7.0); Hematocrit 40.6 % (42.0-54.0); Hemoglobin 10.8 g/dL (14.0-18.0); Immature Granulocytes Abs Auto 0.12 10^3/uL (0.00-0.03); Lymphocytes Absolute Auto 0.8 10^3/uL (1.2-3.8); Lymphocytes Percent Auto 6.1 % (20.5-60.0); Mean Corpuscular HGB Conc 26.6 g/dL (29.9-35.2); Mean Corpuscular Hemoglobin 18.8 pg (25.9-34.0); Mean Corpuscular Volume 70.5 fL (80.0-94.0); Mean Platelet Volume 8.6 fL (9.5-13.5); Monocytes Absolute Auto 0.6 10^3/uL (0.3-0.8); Monocytes Percent Auto 4.7 % (1.7-12.0); Neutrophils Absolute Auto 10.2 10^3/uL (1.4-6.5); Neutrophils Percent Auto 83.4 % (43.0-75.0); Platelet Count 744 10^3/uL (150-450); Red Blood Count 5.76 10^6/uL (4.70-6.10); White Blood Count 12.3 10^3/uL (4.0-11.0)
[2024-05-19 08:19] LABS: Alanine Aminotransferase 20 U/L (16-63); Albumin Globulin Ratio 1.3; Albumin Level 3.9 g/dL (3.4-5.0); Alkaline Phosphatase 67 U/L (46-116); Aspartate Amino Transferase 21 U/L (15-37); BUN Creatinine Ratio 15.9; Bilirubin Total 0.8 mg/dL (0.2-1.0); Calcium 8.6 mg/dL (8.5-10.1); Carbon Dioxide 28.3 mmol/L (21.0-32.0); Chloride 104 mmol/L (98-107); Chol HDL Ratio 2.7; Cholesterol 106 mg/dL (<=200); Estimated GFR (African America >60 (>=60 mL/min/1.73m^2); Estimated GFR (Non-African Ame >60 (>=60 mL/min/1.73m^2); Globulin 3.1 g/dL; Glucose 100 mg/dL (74-106); HDL Cholesterol 39 mg/dL (40-60); Potassium 4.3 mmol/L (3.5-5.1); Sodium 141 mmol/L (136-145); Triglycerides 77 mg/dL (<=150); VLDL CHOLESTEROL 15.4 mg/dL
[2024-05-19 08:30] LABS: Prostate Specific Antigen Scrn 1.36 ng/mL (<=4.00)
== END 2024-05-19 06:37 | disposition home or self-care (01) ==
LOC: LAB 06:38
PROVIDERS: PCP Internal Medicine; Visit Provider Internal Medicine
DX: Z00.00 Encounter for general adult medical examination without abnormal findings (principal); R05.8 Other specified cough; J20.8 Acute bronchitis due to other specified organisms; M47.814 Spondylosis without myelopathy or radiculopathy, thoracic region; Z12.5 Encounter for screening for malignant neoplasm of prostate
CPT/HCPCS: 36415; 71046; 80053; 80061; 85025; G0103

== ENCOUNTER 2024-06-12 09:58 | Outpatient (OUT) | payer OTHER, SELFPAY | END 2024-06-12 09:59 | disposition home or self-care (01) | LOC: PST 09:58 | PROVIDERS: PCP Internal Medicine; Visit Provider Surgery | DX: Z01.818 Encounter for other preprocedural examination (principal); Z12.11 Encounter for screening for malignant neoplasm of colon ==

== ENCOUNTER 2024-06-20 06:43 | Day surgery (SDC) | payer OTHER, SELFPAY ==
--- NOTE | 2024-06-20 | OP_ITS ---
OPERATION DATE: 06/20/2024 PREOPERATIVE DIAGNOSIS: Colorectal screening. POSTOPERATIVE DIAGNOSIS: Sigmoid diverticulosis. PROCEDURE: Colonoscopy to cecum. SURGEON: Jeremy Miller M.D. ANESTHESIA: Monitored anesthesia care. ESTIMATED BLOOD LOSS: Zero. INDICATIONS AND CONSENT: Patient is a 59-year-old male presents for colorectal screening. Indications, risks, benefits, alternatives of proceeding with colonoscopy were explained extensively to the patient, including the risks of bleeding, colon perforation or anesthetic complications. All of his questions were answered. Informed consent was obtained. PROCEDURE: Patient was brought to the operating room, placed in the left lateral decubitus position. Monitored anesthesia care was provided. Rectal exam was performed which showed no masses or blood. The scope was inserted into the anal canal. Under direct visualization was advanced. It was advanced to the cecum where cecal markings were clearly identified. Upon withdrawal of the scope, mucosal surfaces were carefully examined. There were no mass lesions or polyps. No inflammatory changes or ulcerations. There was moderate sigmoid diverticulosis, without inflammatory changes or scarring. The scope was retroflexed in the anal canal. There was no significant hemorrhoidal disease. The scope was then withdrawn. Patient tolerated procedure well, was sent to recovery room in good condition. Follow up screening colonoscopy should be in 10 years. CC: Dr. Nate [place]
[2024-06-20 06:50] VITALS: BMI 26.4
[2024-06-20 07:11] VITALS: BP 137/78; PULSE 89; TEMP 36.4; O2SAT 95
[2024-06-20] MEDS: 0.9 % SODIUM CHLORIDE 500 ML 50 ML IV (07:13)
[2024-06-20 08:13] VITALS: BP 104/69; PULSE 91; O2SAT 97
[2024-06-20 08:28] VITALS: BP 118/74; PULSE 86; O2SAT 97
== END 2024-06-20 08:46 | disposition home or self-care (01) ==
PROVIDERS: PCP Internal Medicine; Visit Provider Surgery
PROC: (CPT 812; principal; 2024-06-20 08:00)
DX: Z12.11 Encounter for screening for malignant neoplasm of colon (principal); K57.30 Diverticulosis of large intestine without perforation or abscess without bleeding; I10 Essential (primary) hypertension; G47.33 Obstructive sleep apnea (adult) (pediatric); D45 Polycythemia vera; N40.0 Benign prostatic hyperplasia without lower urinary tract symptoms; Z79.82 Long term (current) use of aspirin
CPT/HCPCS: 45378; J2704

== ENCOUNTER 2024-10-26 10:56 | Emergency (ER) | payer OTHER, SELFPAY ==
[2024-10-26 11:01] VITALS: BP 158/86; PULSE 90; TEMP 36.9; O2SAT 97; BMI 26.5
--- NOTE | 2024-10-26 11:05 | XR_ITS ---
The [address] [address] Patient Name: SHANEKA HERRERA MRN: [id number] date: 1965 Sex: M Assigned Patient Location: ER Current Patient Location: ED.MAIN Accession/Order Number: [id number] Exam Date: 10/26/2024 11:10 Report Date: 10/26/2024 11:25 At the request of: SRINIVAS VILLAVICENCIO MD Procedure: XR hand LT min 3V LEFT HAND - 3 views CLINICAL DATA: Laceration of the fourth finger after being caught in machinery. COMPARISON: None AP, lateral and oblique views were obtained. There is no evidence of fracture or dislocation. Laceration is seen at the mid to distal fourth finger. No radiopaque foreign bodies are identified.. XR/XR hand LT min 3V IMPRESSION: NO ACUTE BONY INJURY OR RADIOPAQUE FOREIGN BODY. Impression dictated by: Caitlyn Olson M.D. 10/26/2024 11:25 AM [facility] Electron[facility] authenticated by: [id number] Date: 10/26/2024 11:25
--- NOTE | 2024-10-26 11:08 | ED.WOUNDLAC1 ---
HPI - Wound/Laceration General Chief Complaint: Wound/Laceration Stated Complaint: L RING FINGER LACERATION/INJURY Time Seen by Provider: 10/26/24 11:03 Source: patient Mode of arrival: walk-in Limitations: no limitations History of Present Illness HPI narrative: The patient is a 59 years old male coming to the ER with a laceration that he obtained to his left ring finger while fixing his truck, the patient apparently had a equipment of the truck fall in his left ring finger, the patient last tetanus booster was in last year after he had a injury to his left arm There is no other injuries Related Data Home Medications ?Medication ?Instructions ?Recorded ?Confirmed Rusfertide 45mg injection .weekly 06/12/24 aspirin 81 mg capsule 81 mg PO DAILY 06/12/24 06/20/24 krill 300 mg-omega-3 90 mg-dha 27 1 cap PO BID 06/12/24 06/20/24 mg-epa 45 mp-zbdihob-mvcknix capsule turmeric 400 mg capsule 500 mg PO DAILY 06/12/24 06/12/24 Previous Rx's ?Medication ?Instructions ?Recorded albuterol sulfate 90 mcg/actuation 2 inh inhalation Q6H PRN shortness 12/04/22 breath activated powder inhaler of breath or wheezing #1 ea doxycycline hyclate 100 mg tablet 100 mg PO BID 7 days #14 tabs 10/26/24 Allergies Allergy/AdvReac Type Severity Reaction Status Date / Time cefuroxime (From Ceftin) AdvReac rash Verified 10/26/24 11:03 etodolac AdvReac Rash Verified 10/26/24 11:03 Review of Systems ROS Status of ROS 10 or more systems reviewed and unremarkable except as noted in history and below [facility] Medical History (Updated 10/26/24 @ 12:08 by Ashely Chu MD) Arthritis ?M19.90 - Unspecified osteoarthritis, unspecified site (ICD-10) Deep vein thrombosis ?I82.409 - Acute embolism and thrombosis of unspecified deep veins of unspecified lower extremity (ICD-10) Closed fracture of clavicle ?S42.009A - Fracture of unspecified part of unspecified clavicle, initial encounter for closed fracture (ICD-10) Allergic rhinitis ?J30.9 - Allergic rhinitis, unspecified (ICD-10) Polycythemia vera ?D45 - Polycythemia vera (ICD-10) Overweight ?E66.3 - Overweight (ICD-10) Obstructive sleep apnea ?G47.33 - Obstructive sleep apnea (adult) (pediatric) (ICD-10) Hypertension ?I10 - Essential (primary) hypertension (ICD-10) BPH (benign prostatic hyperplasia) ?N40.0 - Benign prostatic hyperplasia without lower urinary tract symptoms (ICD-10) Surgical History (Updated 06/12/24 @ 08:37 by Sarah Granado) History of arthroscopy of knee ?Z98.890 - Other specified postprocedural states (ICD-10) H/O left inguinal hernia repair ?Z98.890 - Other specified postprocedural states (ICD-10) ?Z87.19 - Personal history of other diseases of the digestive system (ICD-10) Family History (Updated 06/12/24 @ 08:32 by Sarah Granado) Other Family history of diabetes mellitus Family history of hypertension Family history of leukemia Social History (Updated 06/12/24 @ 08:39 by Sarah Granado) Within the past year, how often did you have a drink containing alcohol: 2-4 times a month Smoking status: Former smoker Non-prescribed substance use: denies use Little interest or pleasure in doing things: not at all Feeling down, depressed, or hopeless: not at all Exam Narrative Exam Narrative: Nurses notes and vital signs reviewed and patient is not hypoxic. Left upper extremity: There is no vascular injury detected the patient have a good capillary refill, the patient have a laceration on the dorsum of the left ring finger on the radial aspect of the middle phalanx, the laceration is not clean culture there is no foreign body and there is no exposure of the underlying structure, the patient have full range of movement in his hand and fingers and especially in the ring finger in the left hand, the patient have a crushing injury with a significant swelling of the laceration site General: Well-appearing and in no apparent distress. Skin: Warm, dry, no pallor noted. No rash. Head: Normocephalic, atraumatic. Neck: Supple, non-tender. Neurological: A&O x4. No cranial nerve dysfunction observed. No truncal ataxia. Moves all extremities. Sensation intact. Psychiatric: Cooperative and interactive. Normal mood and affect. Constitutional Vital Signs, click to edit/add: Last Vital Signs Temp 98.5 F 10/26/24 11:01 Pulse 90 10/26/24 11:01 Resp 16 10/26/24 11:01 BP 158/86 H 10/26/24 11:01 Pulse Ox 97 10/26/24 11:01 O2 Del Method Room Air 10/26/24 11:01 Course Vital Signs Vital signs: Vital Signs Temperature 98.5 F 10/26/24 11:01 Pulse Rate 90 10/26/24 11:01 Respiratory Rate 16 10/26/24 11:01 Blood Pressure 158/86 H 10/26/24 11:01 Pulse Oximetry 97 10/26/24 11:01 Oxygen Delivery Method Room Air 10/26/24 11:01 Temperature 98.5 F 10/26/24 11:01 Pulse Rate 90 10/26/24 11:01 Respiratory Rate 16 10/26/24 11:01 Blood Pressure 158/86 H 10/26/24 11:01 Pulse Oximetry 97 10/26/24 11:01 Oxygen Delivery Method Room Air 10/26/24 11:01 MDM - Wound/Laceration MDM Narrative Medical decision making narrative: X-ray of the left hand showed no acute pathology The patient after cleaning the area thoroughly a finger block was obtained with a 2 cc of 1% lidocaine injected at the metacarpal phalangeal joint of the left fourth finger The patient then had 1 Chromic Gut 5-O suture in the wound itself in addition to 10 4-O Prolene stitches Finger splint was applied and the patient was provided with a doxycycline prescription Elevation and rest and the sutures to be removed after 5 to 7 days The finger splint can be removed after 3 days and the patient to continue keeping the hand clean and dry The patient is to follow up with primary care physician in next 2-3 days or to return to the emergency department should any of the signs or symptoms worsen or new symptoms develop. The patient agrees with the following Diagnosis and Treatment plan and the patient will be discharged home. Discharge Plan Discharge Chief Complaint: Wound/Laceration Clinical Impression: Finger laceration, Crush injury Patient Disposition: Home, Self-Care Time of Disposition Decision: 12:07 Prescriptions / Home Meds: New doxycycline hyclate 100 mg tablet 100 mg PO BID 7 Days Qty: 14 0RF No Action albuterol sulfate 90 mcg/actuation aerosol powdr breath activated 2 inh inhalation Q6H PRN (Reason: shortness of breath or wheezing) Qty: 1 0RF aspirin 81 mg capsule 81 mg PO DAILY turmeric 400 mg capsule 500 mg PO DAILY [id number] mg capsule 1 cap PO BID Rusfertide 45mg injection .weekly Print Language: Lithuanian Instructions: Finger Laceration (ED) Additional Instructions: Please keep the wound clean and dry Sutures to be removed after 5 to 7 days Finger splint can be removed after 3 days Referrals: Tigre Rodríguez DO [Primary Care Provider, Internal Medicine] - 1 week Discharge Date/Time: 10/26/24 12:36
--- OUTSIDE RECORDS SUMMARY | 2024-10-26 11:08 | XMS_ITS | CCD ---
Author Organization [facility] CliniSyde Care Team Providers Care Klystrom Tube Tester Name Role Phone Nate Houser MD (Historical) Primary Care Provider Tigre Merida DO Primary Care Provider Bryce Ventura MD Unavailable Agapito RN, Hannah Unavailable [phone] TIGRE MERIDA Primary Care Physician FUAD, DR [...] MD Unavailable Agapito RN, Hannah Unavailable Tigre Merida DO Primary Care Provider Bryce Ventura MD Unavailable Agapito RN, Hannah Unavailable Tigre Merida Unavailable Agapito RN, Hannah Unavailable Tigre Merida DO Primary Care Provider TIGRE MERIDA Referring Unavailable Jeremy ALDRICH Attending Unavailable Jeremy ALDRICH Attending Unavailable Darin MC, Anaid Unavailable Unavailable Tigre Merida DO Primary Care Provider Tigre Merida DO Attending Provider Provider, Outside Attending Provider Unavailable GERDS, BRYCE T Referring Unavailable BALL, TIGRE E Primary Care Unavailable BALL, TIGRE E Primary Care Unavailable GERDS, BRYCE T Referring Unavailable BALL, TIGRE E Primary Care Unavailable GERDS, BRYCE T Referring Unavailable GERDS, BRYCE T Attending Unavailable BALL, TIGRE E Primary Care Unavailable GERDS, BRYCE T Referring Unavailable BALL, TIGRE E Primary Care Unavailable GERDS, BRYCE T Referring Unavailable ANNIE ABREU Attending Unavailable BALL, TIGRE E Primary Care Unavailable GERDS, BRYCE T Referring Unavailable GERDS, BRYCE T Referring Unavailable BALL, TIGRE E Primary Care Unavailable GERDS, BRYCE T Attending Unavailable BALL, TIGRE E Primary Care [...] T Referring Unavailable ANNIE ABREU Attending Unavailable BALL, TIGRE E Primary Care Unavailable GERDS, BRYCE T Referring Unavailable Allergies Allergy Classification Reported Allergen(s) Allergy Type Date of Onset Reaction(s) Facility Sulfamethoxazole / Trimethoprim (1 source) Sulfamethoxazole / Trimethoprim Drug Allergy 1 [facility] (20 sources) Sulfamethoxazole / Trimethoprim; Translations: [SULFAMETHOXAZOLE-TR IMETHOPRIM] Drug Allergy 1 [facility] (2 sources) Cefuroxime; Translations: [cefuroxime] Drug Allergy [facility] (2 sources) Etodolac; Translations: [etodolac] Drug Allergy [facility] (2 sources) Etodolac Drug Allergy 6 [facility] Repository Medications Current Medications Medication Drug Class(es) Dates Sig (Normalized) Sig (Original) aspirin 81 mg delayed release oral tablet (20 sources) Platelet Aggregation Inhibitor, Nonsteroidal Anti-inflammatory Drug Start: 05-18-2024 take 1 tablet by mouth once daily aspirin 81 mg ca p Take by mouth once daily. Active Comment on above: Take by mouth once d aily. azithromycin 250 mg oral tablet (3 sources) Macrolide Antimicrobial Start: 05-19-19 25 doxycycline hyclate 100 mg oral capsule (2 sources) Tetracycline-class Drug Start: 12-04-19 take 1 capsule by mouth every twelve hours Doxycycline Hyclate 100 MG 1 capsule Orally Twice a day for 5 days Nov, Active efinaconazole 100 mg/ml topical solution (20 sources) Azole Antifungal Start: 05-19-19 Comment on above: Apply 1 application to affected area once daily. enteric contrast (will be provided with radiology test) (2 sources) Start: 02-22-19 End: 02-23-19 enteric contrast (will be provided with radiology [...] guidelines krill oil 500 mg oral capsule (3 sources) Start: 05-19-19 take 1 capsule by mouth twice daily KRILL OIL ORAL (20 sources) KRILL OIL ORAL T margarito by mouth twice daily. Active KRILL OIL ORAL T margarito by mouth twice daily. 0 Active Comment on above: Take by mouth twice daily. magnesium glycinate 100 mg magnesium capsule (20 sources) Start: 07-14-2023 take 2 capsules by mouth once daily, then take 2 capsules by mouth once daily magnesium glycinate 100 mg magnesium capsule Take 2 capsules by mouth once daily. Take 2 capsules by mouth once daily in late afternoon 30 capsule 1 07/14/2023 Active Magnesium Glycinate 100 mg magnesium capsule (3 sources) Start: 05-18-2024 Start: 05-18-2024 Magnesium Glyc inate 100 mg magnesium capsule Active 200 MG PO Daily May 18, 2024 12:00am meclizine hydrochloride 12.5 mg oral tablet (3 sources) Antiemetic Start: 08-13-2022 End: 09-12-2022 take 2 tablets by mouth every twelve hours as needed meclizine (ANTIVERT) 12.5 mg tab Take 2 tablets by mouth twice daily as needed. 28 tablet 0 08/13/2022 09/12/2022 Active Comment on above: Take 2 tablets by mo ut twice daily as needed. Multivitamin tablet (3 sources) Start: 05-18-2024 take 1 tablet by mouth once daily Start: 05-18-2024 take 1 tablet by miriam th once daily Multivitamin tablet Active 1 TAB PO Daily May 18, 2024 12:00am multivitamin with minerals ( ONE-A-DAY 50 PLUS ORAL) (20 sources) multivitamin wit h minerals (ONE-A-DAY 50 PLUS ORAL) Take by mouth once daily. Active multivitamin wit h minerals (ONE-A-DAY 50 PLUS ORAL) Take by mouth once daily. 0 Active Comment on above: Take by mouth once d aily. Ruxolitinib (20 sources) Start: 05-18-2024 Start: 05-18-2024 Ruxolitinib (O pzelura) 1.5 % cream Active 1 APPLIC TOPICAL Twice daily May 18, 2024 12:00am ruxolitinib phos phate (OPZELURA TOPICAL) Apply to affected area. Active ruxolitinib phos phate (OPZELURA TOPICAL) Apply to affected area. 0 Active Comment on above: Apply to affected ar ea. turmeric extract 500 mg oral capsule (10 sources) Start: 12-19-2023 take 500 mg by mouth once daily TURMERIC ORAL Take 500 mg by mouth once daily. 12/19/2023 Active Turmeric Root Extract 500 mg capsule (3 sources) Start: 05-18-2024 take 1 capsule by mouth once daily Start: 05-18-2024 take 1 capsule by mo [facility] once daily Turmeric Root Extract 500 mg [...] Start: 10-01-2020 take 1 tablet by miriam once daily amLODIPine (NORVASC) 5 mg tablet Take 5 mg by mouth once daily. 0 10/01/2020 Active Comment on above: Take 5 mg by mouth o nce daily. amoxicillin 875 mg / clavulanate 125 mg oral tablet (4 sources) Penicillin-class Antibacterial Start: 07-19-19 End: 05-19-19 take 1 tablet by mouth twice daily Amoxicillin-Pot Clavulanate 875-125 mg tablet Discontinued 1 TAB PO Twice daily 14 July 19, 2023 12:00am May 18, 2024 9:28am fluticasone propionate 0.05 mg/actuat metered dose nasal spray (7 sources) Corticosteroid Start: 08-25-19 End: 05-19-19 take [...] cted area one time a week. Nirmatrelvir-Ritonavir (1 source) Start: 02-03-2024 End: 05-18-2024 Nirmatrelvir-Ritonavir (Paxlovid) 300 mg (150 mg x 2)-100 mg tablets,dose pack Discontinued 0 PO .COMPLEX February 03, 2024 1:00am May 18, 2024 9:28am take TWO 150 mg tablets of nirmatrelvir with ONE 100 mg tablet of ritonavir twice daily for 5 days PO Nirmatrelvir-Ritonavir (Paxlovid) 300 mg (150 mg x 2)-100 mg tablets,dose pack (2 sources) Start: 02-03-2024 End: 05-18-2024 Nirmatrelvir-Ritonavir (Paxlovid) 300 [...] direc mary. terbinafine 250 mg oral tablet (12 sources) Allylamine Antifungal Start: 07-19-2023 End: 05-18-2024 [...] Date Documented Da te Episodic/Chronic Acute bronchitis (2 sources) Acute bronchitis due to other specified organisms; Translations: [Acute bronchitis] Episodic Conditions associated with dizziness or vertigo (1 source) Dizziness; Translations: [Dizziness and giddiness] Episodic Deficiency and other anemia (1 source) Anemia; Translations: [Anemia, unspecified] 10-04-2024 Episodic Deficiency and other anemia (1 source) Anemia, unspecified; Translations: [Anemia, unspecified type] Onset: 10-04-2024 Episodic Essential hypertension (5 sources) Essential hypertension; [...] elsewhere classified Episodic Other lower respiratory disease (3 sources) Productive cough ; Translations: [Productive cough] 05-18-2024 Episodic Other nervous system disorders (1 source) Cold feet; Translations: [Unspecified disturbances of skin sensation] 03-24-2023 Episodic Other nutritional; endocrine; and metabolic disorders (1 source) Overweight Episodic Other screening for suspected conditions (not mental disorders or infectious disease) (10 sources) Encounter for screening for malignant neoplasm of prostate; Translations: [Patient encounter status] Onset: 09-17-2021 Episodic Comment on above: PSA: 1.67 - 08/2021, 1.71 - 09/2022 PSA: 1.67 - 08/2021, 1.71 - 09/2022, 1.36 - 05/2024 Other upper respiratory disease (9 sources) Allergic rhinitis due to pollen; Translations: [...] sleep apnea (adult) (pediatric) Chronic Viral infection (3 sources) Disease caused by 2019-nCoV; Translations: [COVID-19] 05-14-2024 Episodic Past or Other Problems Problem Classification Problem Date Documented Da te Episodic/Chronic Other hematologic conditions (4 sources) Secondary polycythemia; Translations: [SECONDARY POLYCYTHEMIA] Onset: 10-01-2020 Episodic Unclassified (1 source) Exposure to 2019 novel coronavirus; Translations: [Contact with and (suspected) exposure to COVID19] Results Test Name Value Interpretation Reference Range Facility Basophils Auto (Bld) [#/Vol] Ordered By: Outside Provider on 10-04-2024 Basophils (Bld) [#/Vol] 0.20 10*3/uL High <0.11 [facility] Basophils/100 WBC Auto (Bld) Ordered By: Outside Provider on 10-04-2024 Basophils/100 WBC (Bld) 1.5 % [facility] Blood manual differential co mment interpretation narrativeOrdered By: Outside Provider on 10-04-2024 Manual differential comment Van (Bld) [Interp] Auto [facility] CBC W Auto Differential pane l (Bld)on 10-04-2024 Basophils (Bld) [#/Vol] 0.20 10*3/uL High <0.11 [facility] Comment on above: Order Comment: Speci men Type: BLOOD SPECIMENOrdering Facility: [facility] Address: [address] [place] [address] Performed By: #### 5 7021-8 ####[facility] [id number] [place] [address] [place] Basophils/100 WBC (Bld) 1.5 % Normal [facility] Comment on above: Order Comment: Speci men Type: BLOOD SPECIMENOrdering Facility: [facility] Address: [address] [place] [address] Performed By: #### 5 7021-8 ####[facility] [id number] [place] [address] [place] Differential cell count method Nom (Bld) Auto Normal [facility] Comment on above: Order Comment: Speci men Type: BLOOD SPECIMENOrdering Facility: [facility] Address: [address] [place] [address] Performed By: #### 5 7021-8 ####[facility] [place] [id number] [place] [address] [place] Eosinophils (Bld) [#/Vol] 0.46 10*3/uL High <0.46 [facility] Comment on above: Order Comment: Speci men Type: BLOOD SPECIMENOrdering Facility: [facility] Address: [address] [place] [address] Performed By: #### 5 7021-8 ####[facility] [id number] [place] [address] [place] Eosinophils/100 WBC (Bld) 3.5 % Normal [facility] Comment on above: Order Comment: Speci men Type: BLOOD SPECIMENOrdering Facility: [facility] Address: [address] [place] [address] Performed By: #### 5 7021-8 ####[facility] [place] [id number] [place] [address] [place] Erythrocyte distribution width (RBC) [Ratio] 20.9 % High 11.5-15.0 [facility] Comment on above: Order Comment: Speci men Type: BLOOD SPECIMENOrdering Facility: [facility] Address: [address] [place] [address] Performed By: #### 5 7021-8 ####[facility] [id number] [place] [address] [place] Hematocrit (Bld) [Volume fraction] 38.7 % Low 39.0-51.0 [facility] Comment on above: Order Comment: Speci men Type: BLOOD SPECIMENOrdering Facility: [facility] Address: [address] [place] [address] Performed By: #### 5 7021-8 ####[facility] [id number] [place] [address] [place] Hemoglobin (Bld) [Mass/Vol] 10.0 g/dL Low 13.0-17.0 [facility] Comment on above: Order Comment: Speci men Type: BLOOD SPECIMENOrdering Facility: [facility] Address: [address] [place] [address] Performed By: #### 5 7021-8 ####[facility] [id number] [place] [address] [place] Immature granulocytes (Bld) [#/Vol] 0.24 10*3/uL High <0.10 [facility] Comment on above: Order Comment: Speci men Type: BLOOD SPECIMENOrdering Facility: [facility] Address: [address] [place] [address] Performed By: #### 5 7021-8 ####[facility] [id number] [place] [address] [place] Immature granulocytes/100 WBC (Bld) 1.8 % Normal [facility] Comment on above: Order Comment: Speci men Type: BLOOD SPECIMENOrdering Facility: [facility] Address: [address] [place] [address] Performed By: #### 5 7021-8 ####[facility] [id number] [place] [address] [place] Lymphocytes (Bld) [#/Vol] 0.84 10*3/uL Low 1.00-4.00 [facility] Comment on above: Order Comment: Speci men Type: BLOOD SPECIMENOrdering Facility: [facility] Address: [address] [place] [address] Performed By: #### 5 7021-8 ####[facility] [place] [id number] [place] [address] [place] Lymphocytes/100 WBC (Bld) 6.4 % Normal [facility] Comment on above: Order Comment: Speci men Type: BLOOD SPECIMENOrdering Facility: [facility] Address: [address] [place] [address] Performed By: #### 5 7021-8 ####[facility] [id number] [place] [address] [place] MCH (RBC) [Entitic mass] 18.3 pg Low 26.0-34.0 [facility] Comment on above: Order Comment: Speci men Type: BLOOD SPECIMENOrdering Facility: [facility] Address: [address] [place] [address] Performed By: #### 5 7021-8 ####[facility] [id number] [place] [address] [place] MCHC (RBC) [Mass/Vol] 25.8 g/dL Low 30.5-36.0 [facility] Comment on above: Order Comment: Speci men Type: BLOOD SPECIMENOrdering Facility: [facility] Address: [address] [place] [address] Performed By: #### 5 7021-8 ####[facility] [place] [id number] [place] [address] [place] MCV (RBC) [Entitic vol] 70.9 fL Low 80.0-100.0 [facility] Comment on above: Order Comment: Speci men Type: BLOOD SPECIMENOrdering Facility: [facility] Address: [address] [place] [address] Performed By: #### 5 7021-8 ####[facility] [place] [id number] [place] [address] [place] Monocytes (Bld) [#/Vol] 0.40 10*3/uL Normal <0.87 [facility] Comment on above: Order Comment: Speci men Type: BLOOD SPECIMENOrdering Facility: [facility] Address: [address] [place] [address] Performed By: #### 5 7021-8 ####[facility] [place] [id number] [place] [address] [place] Monocytes/100 WBC (Bld) 3.1 % Normal [facility] Comment on above: Order Comment: Speci men Type: BLOOD SPECIMENOrdering Facility: [facility] Address: [address] [place] [address] Performed By: #### 5 7021-8 ####[facility] [id number] [place] [address] [place] Neutrophils (Bld) [#/Vol] 10.90 10*3/uL High 1.45-7.50 [facility] Comment on above: Order Comment: Speci men Type: BLOOD SPECIMENOrdering Facility: [facility] Address: [address] [place] [address] Performed By: #### 5 7021-8 ####[facility] [id number] [place] [address] [place] Neutrophils/100 WBC (Bld) 83.7 % Normal [facility] Comment on above: Order Comment: Speci men Type: BLOOD SPECIMENOrdering Facility: [facility] Address: [address] [place] [address] Performed By: #### 5 7021-8 ####[facility] [place] [id number] [place] [address] [place] Nucleated RBC (Bld) [#/Vol] 10*3/uL Normal <0.01 [facility] Comment on above: Order Comment: Speci men Type: BLOOD SPECIMENOrdering Facility: [facility] Address: [address] [place] [address] Performed By: #### 5 7021-8 ####[facility] [id number] [place] [address] [place] Nucleated RBC/100 WBC (Bld) [Ratio] 0.0 /100 WBC Normal [facility] Comment on above: Order Comment: Speci men Type: BLOOD SPECIMENOrdering Facility: [facility] Address: [address] [place] [address] Performed By: #### 5 7021-8 ####[facility] [id number] [place] [address] [place] Platelet mean volume (Bld) [Entitic vol] 8.7 fL Low 9.0-12.7 [facility] Comment on above: Order Comment: Speci men Type: BLOOD SPECIMENOrdering Facility: [facility] Address: [address] [place] [address] Performed By: #### 5 7021-8 ####[facility] [id number] [place] [address] [place] Platelets (Bld) [#/Vol] 915 10*3/uL High 150-400 [facility] Comment on above: Order Comment: Speci men Type: BLOOD SPECIMENOrdering Facility: [facility] Address: [address] [place] [address] Performed By: #### 5 7021-8 ####[facility] [id number] [place] [address] [place] RBC (Bld) [#/Vol] 5.46 10*6/uL Normal 4.20-6.00 [facility] Comment on above: Order Comment: Speci men Type: BLOOD SPECIMENOrdering Facility: [facility] Address: [address] [place] [address] Performed By: #### 5 7021-8 ####[facility] [id number] [place] [address] [place] WBC (Bld) [#/Vol] 13.04 10*3/uL High 3.70-11.00 [facility] Comment on above: Order Comment: Speci men Type: BLOOD SPECIMENOrdering Facility: [facility] Address: [address] [place] [address] Performed By: #### 5 7021-8 ####[facility] [id number] [place] [address] [place] CNNURSEon 10-04-2024 CNNURSE Nurse Visit (VENKAT TERRELL) SHARONSEGUNDOANIL ([id number]) 1965 M Date Time Provider Department 10/04/24 2:00 PM ANAID WEBSTER During your visit today, we recorded the following information about you: Anaid Webster RN 10/05/2024 7:42 AM Signed Title:An Extension Study to Evaluate the Long-term Safety of Rusfertide (PTG-300) in Subjects with Polycythemia Vera Patient signed Informed Consent on 05/19/2023, prior to any study related procedures. Screening date: 05/19/2023 Subject#: [id number] PTG 1Z21: Week 1 02/26/2021. EOT 05/19/2023. Rolled over to PTG 1922 on 05/19/2023. Week 0: 05/19/2023 PTG-300 45 mg SC weekly Week 4: 06/16/2023 Maintain dosing Week 8+: 07/14/2023 Maintain dosing Patient is a Male with PV. Patient is willing and able to comply with the protocol for the duration of the study including undergoing treatment and scheduled visits and examinations. Patient is here today for Week 72 VISIT for the PTG 1923 Trial, IRB# [id number]. Pt here with his . No new complaints or signs/symptoms with study medication. Pt denies any symptoms or concerns with injection sites. Pt states he no longer experiences redness or swelling at the injection sites. Pt to maintain dosing at 45 mg SC weekly of PTG-300. Concomitant medications reviewed per protocol: Yes Changes per patient: No Quality of life questionnaire completed per protocol: Yes Clinical trial labs completed per protocol: Yes Vitals completed per protocol: Yes PE _+ Dermatologic examination: Sindy Abreu CNP ECO EKG: not required this visit Spleen: 0 cm MPN-SAF (MPN-10) TSS: 10/04/2024 Perameter Score (0 if absent to 10 [...] 0 Enrique WILLINGHAM et alJ Clin Oncol 2012;30:6308-5501. PAST MEDICAL HISTORY Diagnosis Date Status/Active Issues [...] cokes. Denies recreational drug use. 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 Normal [facility] CNOVSPon 10-04-2024 [facility] Visit (SP) Office ([facility]) ANIL LEOS ([id number]) 1965 M Date Time Provider Department 10/04/24 2:00 PM ANNIE ABREU During your visit today, we recorded the following information about you: Temperature Pulse Respiration Blood pressure 97.4 degrees 78/minute 15/minute 130/65 Weight 84 kg Jose Angel Leonardo LPN 10/04/2024 1:39 PM Signed Additional intake questions: Has the patient had fever, nausea, vomiting, diarrhea, constipation, fatigue for > 1 week? No Does the patient have a decreased appetite? No Does patient want to see a Ground Crew Supervisor? No (yes to any of above refer [...] Resource Center Electronically Signed By: ANTHONY Patrick Kristie, APRN.[employer] 10/04/2024 3:54 PM Signed Elements have been copied from prior note on 07/12/2024 - The elements have been reviewed and updated where appropriate, and all reflect my current assessment and decision-making from today, 10/04/2024. [facility] Clinical Note Assessment and Plan In [...] notable for NSR w/ QTcB 450ms. Today (10/04/2024) is week 72 visit of PTG 1923. He continues on 45 mg weekly dosing and is tolerating it well. Hct remains < 45% - has not needed a phlebotomy since February 2021. No injection reactions. Labs remain stable overall although Hgb appears to be trending downward and although Hct is stable, it is now on the lower end (38.7) - No contraindication to continuing investigational Rusfertide today but may consider dose modification in the future should levels continue to downtrend. All of Mr. Leos's questions and those of his were acknowledged and answered to their satisfaction. Welcomed them to please call with any questions or concerns. I spent a total of 24 minutes on the date of the service which included preparing to see the patient, bouf-by-pnaw patient care, completing clinical documentation, obtaining and/or reviewing separately obtained history, performing a medically appropriate examination, counseling and educating the patient/family/careg iver, ordering medications, tests, or procedures, communicating with other HCPs (not separately reported), independently interpreting results (not separately reported), communicating results to the patient/family/careg iver, and care coordination (not separately reported). Annie Abreu APRN.[employer] CC: Tigre Merida DO Patient Care Team: Tigre Merida DO as PCP - General (Internal Medicine) Bryce Ventura MD as Physician (Hematology/Oncology ) Anaid Webster, RN as Research Nurse Visit Details Past Medical History Mr. Leos presents today, accompanied by his , for planned study follow-up. He reports feeling well overall and denies any new complaints or concerns, nor any changes to his MPN-related symptoms. He notes that he feels fatigued at times and is sleeping more at night but admits that he's not sure if this is due to getting older, his activities, or due to his PV. He still has tough skin which necessitates using more strength to give himself the injections; however, he no longer has injection reactions like he once did. He denies fevers, chills, headaches, chest pain, palpitations, shortness of breath, nausea, vomiting, changes in bowel or bladder habits, swelling, rashes, or bleeding. He is eating and drinking well. (more content not included)... Normal [facility] Comprehensive metabolic 2000 panelon 10-04-2024 Albumin [Mass/Vol] 4.3 g/dL Normal 3.9-4.9 [facility] Comment on above: Order Comment: Speci men Type: BLOOD SPECIMENOrdering Facility: [facility] Address: [address] [place] [address] Performed By: #### 2 4323-8 ####[facility] [id number] [place] [address] [place] ALP [Catalytic activity/Vol] 64 U/L Normal 38-113 [facility] Comment on above: Order Comment: Speci men Type: BLOOD SPECIMENOrdering Facility: [facility] Address: [address] [place] [address] Performed By: #### 2 4323-8 ####[facility] [id number] [place] [address] [place] ALT [Catalytic activity/Vol] 15 U/L Normal 10-54 [facility] Comment on above: Order Comment: Speci men Type: BLOOD SPECIMENOrdering Facility: [facility] Address: [address] [place] [address] Performed By: #### 2 4323-8 ####[facility] [id number] [place] [address] [place] Anion gap [Moles/Vol] 10 mmol/L Normal 8-15 [facility] Comment on above: Order Comment: Speci men Type: BLOOD SPECIMENOrdering Facility: [facility] Address: [address] [place] [address] Performed By: #### 2 4323-8 ####[facility] [id number] [place] [address] [place] AST [Catalytic activity/Vol] 20 U/L Normal 14-40 [facility] Comment on above: Order Comment: Speci men Type: BLOOD SPECIMENOrdering Facility: [facility] Address: [address] [place] [address] Performed By: #### 2 4323-8 ####[facility] [id number] [place] [address] [place] Bilirubin [Mass/Vol] 0.4 mg/dL Normal 0.2-1.3 [facility] Comment on above: Order Comment: Speci men Type: BLOOD SPECIMENOrdering Facility: [facility] Address: [address] [place] [address] Performed By: #### 2 4323-8 ####[facility] [id number] [place] [address] [place] Calcium [Mass/Vol] 8.7 mg/dL Normal 8.5-10.2 [facility] Comment on above: Order Comment: Speci men Type: BLOOD SPECIMENOrdering Facility: [facility] Address: [address] [place] [address] Performed By: #### 2 4323-8 ####[facility] [id number] [place] [address] [place] Chloride [Moles/Vol] 105 mmol/L Normal 98-107 [facility] Comment on above: Order Comment: Speci men Type: BLOOD SPECIMENOrdering Facility: [facility] Address: [address] [place] [address] Performed By: #### 2 4323-8 ####[facility] [id number] [place] [address] [place] CO2 [Moles/Vol] 26 mmol/L Normal 22-30 [facility] Comment on above: Order Comment: Speci men Type: BLOOD SPECIMENOrdering Facility: [facility] Address: [address] [place] [address] Performed By: #### 2 4323-8 ####[facility] [id number] [place] [address] [place] Creatinine [Mass/Vol] 0.91 mg/dL Normal 0.73-1.22 [facility] Comment on above: Order Comment: Abhishek flores Type: BLOOD SPECIMENOrdering Facility: [facility] Address: [address] [place] [address] Performed By: #### 2 4323-8 ####[facility] [id number] [place] [address] [place] eGFRcr SerPlBld CKD-EPI 2020 96 mL/min/1.73m??? Normal >=60 [facility] Comment on above: Order Comment: Abhishek flores Type: BLOOD SPECIMENOrdering Facility: [facility] Address: [address] [place] [address] Result Comment: Romi mated Glomerular Filtration Rate [...] By: #### 2 4323-8 ####[facility] [id number] [place] [address] [place] Glucose [Mass/Vol] 120 mg/dL High 74-99 [facility] Comment on above: Order Comment: Abhishek flores Type: BLOOD SPECIMENOrdering Facility: [facility] Address: [address] [place] [address] Result Comment: The [place] Diabetes Association (ADA) provides guidance for cutoff [...] Standards of Medical Care in Diabetes 2016, [place] [employer] Association. Diabetes Care. 2016.39(Suppl 1). Performed By: #### 2 4323-8 ####[facility] [id number] [place] [address] [place] Potassium [Moles/Vol] 4.1 mmol/L Normal 3.7-5.1 [facility] Comment on above: Order Comment: Speci men Type: BLOOD SPECIMENOrdering Facility: [facility] Address: [address] [place] [address] Performed By: #### 2 4323-8 ####[facility] [id number] [place] [address] [place] Protein [Mass/Vol] 6.5 g/dL Normal 6.3-8.0 [facility] Comment on above: Order Comment: Speci men Type: BLOOD SPECIMENOrdering Facility: [facility] Address: [address] [place] [address] Performed By: #### 2 4323-8 ####[facility] [id number] [place] [address] [place] Sodium [Moles/Vol] 141 mmol/L Normal 136-144 [facility] Comment on above: Order Comment: Speci men Type: BLOOD SPECIMENOrdering Facility: [facility] Address: [address] [place] [address] Performed By: #### 2 4323-8 ####[facility] [id number] [place] [address] [place] Urea nitrogen [Mass/Vol] 17 mg/dL Normal 9-24 [facility] Comment on above: Order Comment: Speci men Type: BLOOD SPECIMENOrdering Facility: [facility] Address: [address] [place] [address] Performed By: #### 2 4323-8 ####[facility] [id number] [place] [address] [place] Eosinophils/100 WBC Auto (Bl d)Ordered By: Outside Provider on 10-04-2024 Eosinophils/100 WBC (Bld) 3.5 % [facility] Erythrocyte distribution wid th Auto (RBC) [Ratio]Ordered By: Outside Provider on 10-04-2024 Erythrocyte distribution width (RBC) [Ratio] 20.9 % High 11.5-15.0 [facility] Hematocrit Auto (Bld) [Volum e fraction]Ordered By: Outside Provider on 10-04-2024 Hematocrit (Bld) [Volume fraction] 38.7 % Low 39.0-51.0 [facility] Hemoglobin [Mass/volume] in BloodOrdered By: Outside Provider on 10-04-2024 Hemoglobin (Bld) [Mass/Vol] 10.0 g/dL Low 13.0-17.0 [facility] Laboratory - Hematology and Cell countsOrdered By: Outside Provider on 10-04-2024 Eosinophils (Bld) [#/Vol] 0.46 10*3/uL High <0.46 [facility] Immature granulocytes (Bld) [#/Vol] 0.24 10*3/uL High <0.10 [facility] Immature granulocytes/100 WBC (Bld) 1.8 % [facility] Leukocytes [#/volume] correc mary for nucleated erythrocytes in Blood by Automated counOrdered By: Outside Provider on 10-04-2024 WBC corrected for nucl RBC Auto (Bld) [#/Vol] 13.04 k/uL High 3.70-11.00 [facility] Lymphocytes Auto (Bld) [#/Vo l]Ordered By: Outside Provider on 10-04-2024 Lymphocytes (Bld) [#/Vol] 0.84 10*3/uL Low 1.00-4.00 [facility] Lymphocytes/100 WBC Auto (Bl d)Ordered By: Outside Provider on 10-04-2024 Lymphocytes/100 WBC (Bld) 6.4 % [facility] MCH Auto (RBC) [Entitic mass ]Ordered By: Outside Provider on 10-04-2024 MCH (RBC) [Entitic mass] 18.3 pg Low 26.0-34.0 [facility] MCHC Auto (RBC) [Mass/Vol]Or dered By: Outside Provider on 10-04-2024 MCHC (RBC) [Mass/Vol] 25.8 g/dL Low 30.5-36.0 [facility] MCV Auto (RBC) [Entitic vol] Ordered By: Outside Provider on 10-04-2024 MCV (RBC) [Entitic vol] 70.9 fL Low 80.0-100.0 [facility] MISC SEND OUT TST 1on 2024 MISC SCAN TEST RESULTS 1 Normal [facility] Comment on above: Order Comment: Speci men Type: BLOOD SPECIMENOrdering Facility: [facility] Address: [address] [place] [address] Result Comment: Rivas mcfarlane REFERRAL LAB 1 (DROP-DOWN) Normal [facility] Comment on above: Order Comment: Speci men Type: BLOOD SPECIMENOrdering Facility: [facility] Address: [address] [place] [address] Result Comment: Rivas mcfarlane TEST 1 Normal [facility] Comment on above: Order Comment: Speci men Type: BLOOD SPECIMENOrdering Facility: [facility] Address: [address] [place] [address] Result Comment: Rivas mcfarlane Monocytes Auto (Bld) [#/Vol] Ordered By: Outside Provider on 10-04-2024 Monocytes (Bld) [#/Vol] 0.40 10*3/uL <0.87 [facility] Monocytes/100 WBC Auto (Bld) Ordered By: Outside Provider on 10-04-2024 Monocytes/100 WBC (Bld) 3.1 % [facility] Neutrophils Auto (Bld) [#/Vo l]Ordered By: Outside Provider on 10-04-2024 Neutrophils (Bld) [#/Vol] 10.90 10*3/uL High 1.45-7.50 [facility] Neutrophils/100 WBC Auto (Bl d)Ordered By: Outside Provider on 10-04-2024 Neutrophils/100 WBC (Bld) 83.7 % [facility] Nucleated RBC Auto (Bld) [#/ Vol]Ordered By: Outside Provider on 10-04-2024 Nucleated RBC (Bld) [#/Vol] 10*3/uL <0.01 [facility] Nucleated erythrocytes [Pres ence] in Blood by Automated countOrdered By: Outside Provider on 10-04-2024 Nucleated RBC Auto Ql (Bld) 0.0 /100{WBC} [facility] Platelet mean volume Auto (B ld) [Entitic vol]Ordered By: Outside Provider on 10-04-2024 Platelet mean volume (Bld) [Entitic vol] 8.7 fL Low 9.0-12.7 [facility] Platelets Auto (Bld) [#/Vol] Ordered By: Outside Provider on 10-04-2024 Platelets (Bld) [#/Vol] 915 10*3/uL High 150-400 [facility] RBC Auto (Bld) [#/Vol]Ordere d By: Outside Provider on 10-04-2024 RBC (Bld) [#/Vol] 5.46 10*6/uL 4.20-6.00 [facility] Tamia 10-02-2024 [facility] Telephone (HEMAMN) ANIL LEOS ([id number]) 1965 M Date Time Provider Department 10/02/24 ANAID WEBSTER HEMAMN During your visit today, we recorded the following information about you: Anaid Webster, RN 10/02/2024 12:41 PM Signed Left message and requested call back to confirm time of appointment on , 10/04/2024. CAROL Boyd,RN October 02, 2024 12:41 PM Allergies As of Date: 10/02/2024 Noted Allergy Reaction BACTRIM (SULFAMETHOXAZOLE-TR IMETH*10/31/2020 2 - Rash Date Reviewed: 07/12/2024 Reviewed by: Pablo Bob MA - Fully Assessed Reason for Visit: Appointment [186] Prescriptions as of 10/02/2024 - TURMERIC ORAL Take 500 mg by mouth once daily. - magnesium glycinate 100 mg magnesium capsule Take 2 capsules by mouth once daily. Take 2 capsules by mouth once daily in late afternoon - efinaconazole 10 % alfa Apply 1 application to affected area once daily. - ruxolitinib phosphate (OPZELURA TOPICAL) Apply to affected area. - KRILL OIL ORAL Take by mouth twice daily. - multivitamin with minerals (ONE-A-DAY 50 PLUS ORAL) Take by mouth once daily. - aspirin 81 mg cap Take by mouth once daily. Problem List As Of Date 10/02/2024 Noted Resolved Polycythemia vera (HCC) [D45] 12/16/2020 Encounter Status:Closed by ANAID WEBSTER on 10/02/24 Normal [facility] Basophils Auto (Bld) [#/Vol] on 07-12-2024 Basophils (Bld) [#/Vol] 0.24 10*3/uL High <0.11 [facility] Basophils/100 WBC Auto (Bld) on 07-12-2024 Basophils/100 WBC (Bld) 1.8 % [facility] Blood manual differential co mment interpretation narrativeon 07-12-2024 Manual differential comment Van (Bld) [Interp] Auto [facility] CBC W Auto Differential pane l (Bld)on 07-12-2024 Basophils (Bld) [#/Vol] 0.24 10*3/uL High <0.11 [facility] Comment on above: Order Comment: Speci men Type: BLOOD SPECIMEN [facility]: [facility] Address: [address] [place] [address] Performed By: #### 5 7021-8 #### [facility] CLIA [id number] [address] [place] [address] [place] [address] [place] Basophils/100 WBC (Bld) 1.8 % Normal [facility] Comment on above: Order Comment: Speci men Type: BLOOD SPECIMEN Ordering Facility: [facility] Address: [address] [place] [address] Performed By: #### 5 7021-8 #### [facility] [id number] [address] [place] [address] [place] Differential cell count method Nom (Bld) Auto Normal [facility] Comment on above: Order Comment: Speci men Type: BLOOD SPECIMEN Ordering Facility: [facility] Address: [address] [place] [address] Performed By: #### 5 7021-8 #### [facility] [id number] [address] [place] [address] [place] Eosinophils (Bld) [#/Vol] 0.44 10*3/uL Normal <0.46 [facility] Comment on above: Order Comment: Speci men Type: BLOOD SPECIMEN Ordering [facility]: [facility] Address: [address] [place] [address] Performed By: #### 5 7021-8 #### [facility] [id number] [address] [place] [address] [place] Eosinophils/100 WBC (Bld) 3.4 % Normal [facility] Comment on above: Order Comment: Speci men Type: BLOOD SPECIMEN Ordering Facility: [facility] Address: [address] [place] [address] Performed By: #### 5 7021-8 #### [facility] [id number] [address] [place] [address] [place] Erythrocyte distribution width (RBC) [Ratio] 20.3 % High 11.5-15.0 [facility] Comment on above: Order Comment: Speci men Type: BLOOD SPECIMEN Ordering Facility: [facility] Address: [address] [place] [address] Performed By: #### 5 7021-8 #### [facility] [id number] [address] [place] [address] [place] Hematocrit (Bld) [Volume fraction] 39.5 % Normal 39.0-51.0 [facility] Comment on above: Order Comment: Speci men Type: BLOOD SPECIMEN Ordering Facility: [facility] Address: [address] [place] [address] Performed By: #### 5 7021-8 #### [facility] [place] [id number] [address] [place] [address] [place] Hemoglobin (Bld) [Mass/Vol] 10.3 g/dL Low 13.0-17.0 [facility] Comment on above: Order Comment: Speci men Type: BLOOD SPECIMEN Ordering Facility: [facility] Address: [address] [place] [address] Performed By: #### 5 7021-8 #### [facility] [id number] [address] [place] [address] [place] Immature granulocytes (Bld) [#/Vol] 0.27 10*3/uL High <0.10 [facility] Comment on above: Order Comment: Speci men Type: BLOOD SPECIMEN Ordering Facility: [facility] Address: [address] [place] [address] Performed By: #### 5 7021-8 #### [facility] [id number] [address] [place] [address] [place] Immature granulocytes/100 WBC (Bld) 2.1 % Normal [facility] Comment on above: Order Comment: Speci men Type: BLOOD SPECIMEN Ordering Facility: [facility] Address: [address] [place] [address] Performed By: #### 5 7021-8 #### [facility] [id number] [address] [place] [address] [place] Lymphocytes (Bld) [#/Vol] 1.02 10*3/uL Normal 1.00-4.00 [facility] Comment on above: Order Comment: Speci men Type: BLOOD SPECIMEN Ordering Facility: [facility] Address: [address] [place] [address] Performed By: #### 5 7021-8 #### [facility] [id number] [address] [place] [address] [place] Lymphocytes/100 WBC (Bld) 7.8 % Normal [facility] Comment on above: Order Comment: Speci men Type: BLOOD SPECIMEN Ordering Facility: [facility] Address: [address] [place] [address] Performed By: #### 5 7021-8 #### [facility] [place] [id number] [address] [place] [address] [place] MCH (RBC) [Entitic mass] 18.2 pg Low 26.0-34.0 [facility] Comment on above: Order Comment: Speci men Type: BLOOD SPECIMEN Ordering Facility: [facility] Address: [address] [place] [address] Performed By: #### 5 7021-8 #### [facility] [place] [id number] [address] [place] [address] [place] MCHC (RBC) [Mass/Vol] 26.1 g/dL Low 30.5-36.0 [facility] Comment on above: Order Comment: Speci men Type: BLOOD SPECIMEN Ordering Facility: [facility] Address: [address] [place] [address] Performed By: #### 5 7021-8 #### [facility] [id number] [address] [place] [address] [place] MCV (RBC) [Entitic vol] 69.8 fL Low 80.0-100.0 [facility] Comment on above: Order Comment: Speci men Type: BLOOD SPECIMEN Ordering Facility: [facility] Address: [address] [place] [address] Performed By: #### 5 7021-8 #### [facility] [id number] [place] [address] [place] Monocytes (Bld) [#/Vol] 0.46 10*3/uL Normal <0.87 [facility] Comment on above: Order Comment: Speci men Type: BLOOD SPECIMEN Ordering Facility: [facility] Address: [address] [place] [address] Performed By: #### 5 7021-8 #### [facility] [id number] [address] [place] [address] [place] Monocytes/100 WBC (Bld) 3.5 % Normal [facility] Comment on above: Order Comment: Speci men Type: BLOOD SPECIMEN Ordering Facility: [facility] Address: [address] [place] [address] Performed By: #### 5 7021-8 #### [facility] [place] [id number] [address] [place] [address] [place] Neutrophils (Bld) [#/Vol] 10.61 10*3/uL High 1.45-7.50 [facility] Comment on above: Order Comment: Speci men Type: BLOOD SPECIMEN Ordering Facility: [facility] Address: [address] [place] [address] Performed By: #### 5 7021-8 #### [facility] [id number] [address] [place] [address] [place] Neutrophils/100 WBC (Bld) 81.4 % Normal [facility] Comment on above: Order Comment: Speci men Type: BLOOD SPECIMEN Ordering Facility: [facility] Address: [address] [place] [address] Performed By: #### 5 7021-8 #### [facility] [id number] [address] [place] [address] [place] Nucleated RBC (Bld) [#/Vol] 10*3/uL Normal <0.01 [facility] Comment on above: Order Comment: Speci men Type: BLOOD SPECIMEN Ordering Facility: [facility] Address: [address] [place] [address] Performed By: #### 5 7021-8 #### [facility] [id number] [address] [place] [address] [place] Nucleated RBC/100 WBC (Bld) [Ratio] 0.0 /100 WBC Normal [facility] Comment on above: Order Comment: Speci men Type: BLOOD SPECIMEN Ordering Facility: [facility] Address: [address] [place] [address] Performed By: #### 5 7021-8 #### [facility] [place] [id number] [address] [place] [address] [place] Platelet mean volume (Bld) [Entitic vol] 8.6 fL Low 9.0-12.7 [facility] Comment on above: Order Comment: Speci men Type: BLOOD SPECIMEN Ordering Facility: [facility] Address: [address] [place] [address] Performed By: #### 5 7021-8 #### [facility] [id number] [address] [place] [address] [place] Platelets (Bld) [#/Vol] 762 10*3/uL High 150-400 [facility] Comment on above: Order Comment: Speci men Type: BLOOD SPECIMEN Ordering Facility: [facility] Address: [address] [place] [address] Performed By: #### 5 7021-8 #### [facility] [id number] [address] [place] [address] [place] RBC (Bld) [#/Vol] 5.66 10*6/uL Normal 4.20-6.00 [facility] Comment on above: Order Comment: Speci men Type: BLOOD SPECIMEN Ordering Facility: [facility] Address: [address] [place] [address] Performed By: #### 5 7021-8 #### [facility] [place] [id number] [address] [place] [address] [place] WBC (Bld) [#/Vol] 13.04 10*3/uL High 3.70-11.00 [facility] Comment on above: Order Comment: Speci men Type: BLOOD SPECIMEN Ordering Facility: [facility] Address: [address] [place] [address] Performed By: #### 5 7021-8 #### [facility] [place] [id number] [address] [place] [address] [place] CNNURSEon 07-12-2024 CNNURSE Nurse Visit (VENKAT TERRELL) ANIL LEOS ([id number]) 1965 M Date Time Provider Department 07/12/24 10:00 AM CHARLOTTE MEJÍA During your visit today, we recorded the following information about you: Charlotte Mejía RN 07/12/2024 12:54 PM Signed Title:An Extension Study to Evaluate the Long-term Safety of Rusfertide (PTG-300) in Subjects with Polycythemia Vera Patient signed Informed Consent on 05/19/2023, prior to any study related procedures. Screening date: 05/19/2023 Subject#: [id number] PTG 1Z21: Week 1 02/26/2021. EOT 05/19/2023. Rolled over to PTG 1923 on 05/19/2023. Week 0: 05/19/2023 PTG-300 45 mg SC weekly Week 4: 06/16/2023 Maintain dosing Week 8+: 07/14/2023 Maintain dosing Patient is a Male with PV. Patient is willing and able to comply with the protocol for the duration of the study including undergoing treatment and scheduled visits and examinations. Male patients must always use a condom during and up to 90 days after the last dose of PTG-300 or rusfertide. Patient is here today for Week 60 VISIT for the PTG 1923 Trial, IRB# [id number]. Pt here with his . No new complaints or signs/symptoms with study medication. Pt denies any symptoms or concerns with injection sites. Pt states he no longer experiences redness or swelling at the injection sites. Pt to maintain dosing at 45 mg SC weekly of PTG-300. Concomitant medications reviewed per protocol: Yes Changes per patient: No Quality of life questionnaire completed per protocol: Yes Clinical trial labs completed per protocol: Yes Vitals completed per protocol: Yes PE: Dr. Ventura ECO Dermatologic examination: completed by Dr. Ventura EKG: not required this visit Spleen: 0 cm MPN-SAF (MPN-10) TSS: 07/12/2024 Perameter Score (0 if absent to 10 [...] 0 Enrique RM et alJ Clin Oncol 2012;30:2125-4942. PAST MEDICAL HISTORY Diagnosis Date Status/Active Issues [...] cokes. Denies recreational drug use. 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 Normal [facility] CNOVSPon 07-12-2024 CNOVSP Visit (SP) Office (HEMAMN) ANIL LEOS ([id number]) 1965 M Date Time Provider Department 07/12/24 10:00 AM BRYCE VENTURA HEMAMN During your visit today, we recorded the following information about you: Temperature Pulse Respiration Blood pressure 97.1 degrees 77/minute 18/minute 129/74 Weight Height 85.6 kg 1.727 m Bryce Ventura MD 07/12/2024 12:21 PM Signed All documentation from previous visit of 04/17/2024 was copied and pasted, documentation has been reviewed and edited as necessary for today's visit. [facility] Clinical Note Assessment and Plan In [...] w/ QTcB 450ms. Today (04/17/2024) is week 70 visit of PTG 1923. He continues on 45 mg weekly dosing and is tolerating it well. Hct stable - has not needed a phlebotomy since start of study. No injection reactions. Labs remain stable overall - No contraindication to continuing investigational Rusfertide today. Will get EKG today. I spent a total of 40 minutes on the date of the service which included preparing to see the patient, [id number] patient care, completing clinical documentation, obtaining and/or reviewing separately obtained history, performing a medically appropriate examination, counseling and educating the patient/family/careg iver, ordering medications, tests, or procedures, communicating with other HCPs (not separately reported), independently interpreting results (not separately reported), communicating results to the patient/family/careg iver, and care coordination (not separately reported). Bryce Ventura MD CC: Tigre Merida DO Patient Care Team: Tigre Merida DO as PCP - General (Internal Medicine) Bryce Ventura MD as Physician (Hematology/Oncology ) Anaid Webster, ALEXANDRO as Research Nurse Visit Details Past Medical History Mr. Leos presents today for follow up with his . He reports feeling well overall and denies any new complaints or concerns, nor any changes to his MPN-related symptoms. Denies any fevers, chills, chest pain, or shortness of breath. Is eating and drinking well. Denies any knee pain today. An inventory of his PV-related symptoms are [...] 0 Enrique WILLINGHAM et alJ Clin Oncol 2012;30:8428-1788. Review of Systems Completed and negative aside [...] Father Age of Onset: (Not Specified) Problem: D (more content not included)... Normal [facility] Comprehensive metabolic 2000 panelon 07-12-2024 Albumin [Mass/Vol] 4.4 g/dL Normal 3.9-4.9 [facility] Comment on above: Order Comment: Speci men Type: BLOOD SPECIMEN Ordering Facility: [facility] Address: [address] [place] [address] Performed By: #### 2 4323-8 ####[facility] [id number] [place] [address] [place] ALP [Catalytic activity/Vol] 59 U/L Normal 38-113 [facility] Comment on above: Order Comment: Speci men Type: BLOOD SPECIMEN Ordering Facility: [facility] Address: [address] [place] [address] Performed By: #### 2 4323-8 ####[facility] [id number] [place] [address] [place] ALT [Catalytic activity/Vol] 23 U/L Normal 10-54 [facility] Comment on above: Order Comment: Speci men Type: BLOOD SPECIMEN Ordering Facility: [facility] Address: [address] [place] [address] Performed By: #### 2 4323-8 ####[facility] [id number] [place] [address] [place] Anion gap [Moles/Vol] 11 mmol/L Normal 8-15 [facility] Comment on above: Order Comment: Speci men Type: BLOOD SPECIMEN Ordering Facility: [facility] Address: [address] [place] [address] Performed By: #### 2 4323-8 ####[facility] [id number] [place] [address] [place] AST [Catalytic activity/Vol] 31 U/L Normal 14-40 [facility] Comment on above: Order Comment: Speci men Type: BLOOD SPECIMEN Ordering Facility: [facility] Address: [address] [place] [address] Performed By: #### 2 4323-8 ####[facility] [id number] [place] [address] [place] Bilirubin [Mass/Vol] 0.6 mg/dL Normal 0.2-1.3 [facility] Comment on above: Order Comment: Speci men Type: BLOOD SPECIMEN Ordering Facility: [facility] Address: [address] [place] [address] Performed By: #### 2 4323-8 ####[facility] [id number] [place] [address] [place] Calcium [Mass/Vol] 8.9 mg/dL Normal 8.5-10.2 [facility] Comment on above: Order Comment: Speci men Type: BLOOD SPECIMEN Ordering Facility: [facility] Address: [address] [place], [place] [address] Performed By: #### 2 4323-8 ####[facility] [id number] [place] [address] [place] Chloride [Moles/Vol] 101 mmol/L Normal 98-107 [facility] Comment on above: Order Comment: Speci men Type: BLOOD SPECIMEN Ordering Facility: [facility] Address: [address] [place] [address] Performed By: #### 2 4323-8 ####[facility] [id number] [place] [address] [place] CO2 [Moles/Vol] 25 mmol/L Normal 22-30 [facility] Comment on above: Order Comment: Speci men Type: BLOOD SPECIMEN Ordering Facility: [facility] Address: [address] [place] [address] Performed By: #### 2 4323-8 ####[facility] [id number] [place] [address] [place] Creatinine [Mass/Vol] 0.87 mg/dL Normal 0.73-1.22 [facility] Comment on above: Order Comment: Speci men Type: BLOOD SPECIMEN Ordering Facility: [facility] Address: [address] [place] [address] Performed By: #### 2 4323-8 ####[facility] [id number] [place] [address] OF [facility] Creatinine and Glomerular filtration rate.predicted panel (S/P/Bld) 99 mL/min/1.73m??? Normal >=60 [facility] Comment on above: Order Comment: Speci men Type: BLOOD SPECIMEN Ordering Facility: [facility] Address: [address] [place] [address] Result Comment: Romi mated Glomerular Filtration Rate [...] By: #### 2 4323-8 ####[facility] [id number] [place] [address] [place] Glucose [Mass/Vol] 95 mg/dL Normal 74-99 [facility] Comment on above: Order Comment: Speci men Type: BLOOD SPECIMEN Ordering Facility: [facility] Address: [address] [place] [address] Result Comment: The [place] Diabetes Association (ADA) provides guidance for cutoff [...] Standards of Medical Care in Diabetes 2016, [place] Diabetes Association. Diabetes Care. 2016.39(Suppl 1). Performed By: #### 2 4323-8 ####[facility] [id number] [place] [address] [place] Potassium [Moles/Vol] 4.5 mmol/L Normal 3.7-5.1 [facility] Comment on above: Order Comment: Speci men Type: BLOOD SPECIMEN Ordering Facility: [facility] Address: [address] [place] [address] Performed By: #### 2 4323-8 ####[facility] [id number] [place] [address] [place] Protein [Mass/Vol] 6.5 g/dL Normal 6.3-8.0 [facility] Comment on above: Order Comment: Speci men Type: BLOOD SPECIMEN Ordering Facility: [facility] Address: [address] [place] [address] Performed By: #### 2 4323-8 ####[facility] [id number] [place] [address] [place] Sodium [Moles/Vol] 137 mmol/L Normal 136-144 [facility] Comment on above: Order Comment: Speci men Type: BLOOD SPECIMEN Ordering Facility: [facility] Address: [address] [place] [address] Performed By: #### 2 4323-8 ####[facility] [id number] [place] [address] [place] Urea nitrogen [Mass/Vol] 18 mg/dL Normal 9-24 [facility] Comment on above: Order Comment: Speci men Type: BLOOD SPECIMEN Ordering Facility: [facility] Address: [address] [place] [address] Performed By: #### 2 4323-8 ####[facility] [id number] [place] [address] [place] Eosinophils/100 WBC Auto (Bl d)on 07-12-2024 Eosinophils/100 WBC (Bld) 3.4 % [facility] Erythrocyte distribution wid th Auto (RBC) [Ratio]on 07-12-2024 Erythrocyte distribution width (RBC) [Ratio] 20.3 % High 11.5-15.0 [facility] Hematocrit Auto (Bld) [Volum e fraction]on 07-12-2024 Hematocrit (Bld) [Volume fraction] 39.5 % 39.0-51.0 [facility] Hemoglobin [Mass/volume] in Bloodon 07-12-2024 Hemoglobin (Bld) [Mass/Vol] 10.3 g/dL Low 13.0-17.0 [facility] Laboratory - Chemistry and C hemistry - challengeon 07-12-2024 Albumin [Mass/Vol] 4.4 g/dL 3.9-4.9 [facility] ALP [Catalytic activity/Vol] 59 U/L 38-113 [facility] ALT [Catalytic activity/Vol] 23 U/L 10-54 [facility] AST [Catalytic activity/Vol] 31 U/L 14-40 [facility] Bilirubin [Mass/Vol] 0.6 mg/dL 0.2-1.3 [facility] Calcium [Mass/Vol] 8.9 mg/dL 8.5-10.2 [facility] Chloride [Moles/Vol] 101 mmol/L 98-107 [facility] CO2 [Moles/Vol] 25 mmol/L 22-30 [facility] Creatinine [Mass/Vol] 0.87 mg/dL 0.73-1.22 [facility] Glucose [Mass/Vol] 95 mg/dL 74-99 [facility] Comment on above: The [place] Diabete s Association (ADA) provides guidance for [...] Standards of Medical Care in Diabetes 2016, [place] Diabetes Association. Diabetes Care. 2016.39(Suppl 1). Potassium [Moles/Vol] 4.5 mmol/L 3.7-5.1 [facility] Sodium [Moles/Vol] 137 mmol/L 136-144 [facility] Urea nitrogen [Mass/Vol] 18 mg/dL 9-24 [facility] Laboratory - Hematology and Cell countson 07-12-2024 Eosinophils (Bld) [#/Vol] 0.44 10*3/uL <0.46 [facility] Immature granulocytes (Bld) [#/Vol] 0.27 10*3/uL High <0.10 [facility] Immature granulocytes/100 WBC (Bld) 2.1 % [facility] Leukocytes [#/volume] correc mary for nucleated erythrocytes in Blood by Automated counon 07-12-2024 WBC corrected for nucl RBC Auto (Bld) [#/Vol] 13.04 k/uL High 3.70-11.00 [facility] Lymphocytes Auto (Bld) [#/Vo l]on 07-12-2024 Lymphocytes (Bld) [#/Vol] 1.02 10*3/uL 1.00-4.00 [facility] Lymphocytes/100 WBC Auto (Bl d)on 07-12-2024 Lymphocytes/100 WBC (Bld) 7.8 % [facility] MCH Auto (RBC) [Entitic mass ]on 07-12-2024 MCH (RBC) [Entitic mass] 18.2 pg Low 26.0-34.0 [facility] MCHC Auto (RBC) [Mass/Vol]on 07-12-2024 MCHC (RBC) [Mass/Vol] 26.1 g/dL Low 30.5-36.0 [facility] MCV Auto (RBC) [Entitic vol] on 07-12-2024 MCV (RBC) [Entitic vol] 69.8 fL Low 80.0-100.0 [facility] MISC SEND OUT TST 1on 2024 MISC SCAN TEST RESULTS 1 Normal [facility] Comment on above: Order Comment: Speci men Type: BLOOD SPECIMEN Ordering Facility: [facility] Address: [address] [place] [address] Result Comment: Rivas mcfarlane REFERRAL LAB 1 (DROP-DOWN) Normal [facility] Comment on above: Order Comment: Speci men Type: BLOOD SPECIMEN Ordering Facility: [facility] Address: [address] [place] [address] Result Comment: Rivas mcfarlane TEST 1 Normal [facility] Comment on above: Order Comment: Speci men Type: BLOOD SPECIMEN Ordering Facility: [facility] Address: [address] [place] [address] Result Comment: Resisa arch Monocytes Auto (Bld) [#/Vol] on 07-12-2024 Monocytes (Bld) [#/Vol] 0.46 10*3/uL <0.87 [facility] Monocytes/100 WBC Auto (Bld) on 07-12-2024 Monocytes/100 WBC (Bld) 3.5 % [facility] Neutrophils Auto (Bld) [#/Vo l]on 07-12-2024 Neutrophils (Bld) [#/Vol] 10.61 10*3/uL High 1.45-7.50 [facility] Neutrophils/100 WBC Auto (Bl d)on 07-12-2024 Neutrophils/100 WBC (Bld) 81.4 % [facility] No Panel Informationon 07-12 Estimated GFR (CKD-EPI) 99 mL/min/1.73m??? >=60 [facility] Comment on above: Estimated Glomerular Filtration Rate [...] actual GFR. Reference Lab Notation See comment [facility] Comment on above: Research Reference Lab Test Name See comment [facility] Comment on above: Research Reporting Documentation 1 See comment [facility] Comment on above: Research Nucleated RBC Auto (Bld) [#/ Vol]on 07-12-2024 Nucleated RBC (Bld) [#/Vol] 10*3/uL <0.01 [facility] Nucleated erythrocytes [Pres ence] in Blood by Automated counton 07-12-2024 Nucleated RBC Auto Ql (Bld) 0.0 /100{WBC} [facility] Platelet mean volume Auto (B ld) [Entitic vol]on 07-12-2024 Platelet mean volume (Bld) [Entitic vol] 8.6 fL Low 9.0-12.7 [facility] Platelets Auto (Bld) [#/Vol] on 07-12-2024 Platelets (Bld) [#/Vol] 762 10*3/uL High 150-400 [facility] Protein [Mass/volume] in Ser um or Plasmaon 07-12-2024 Protein [Mass/Vol] Protein [Mass/volume] in Serum or Plasma 6.3-8.0 [facility] Protein [Mass/Vol] 6.5 g/dL 6.3-8.0 [facility] RBC Auto (Bld) [#/Vol]on RBC (Bld) [#/Vol] 5.66 10*6/uL 4.20-6.00 [facility] Serum or plasma anion gap de terminationon 07-12-2024 Anion gap [Moles/Vol] Serum or plasma anion gap determination 09-28 [facility] Anion gap [Moles/Vol] 11 mmol/L 09-28 [facility] Reminderson 06-21-2024 Reminders Reminders - From: Carole Sal LPN To: G[facility] - Clinical; Sent: 06/21/2024 09:35:17 EDT Show up: 05/21/2034 07:00:00 EDT Subject: colonoscopy recall Due Date/Time: 06/20/2034 07:00:00 EDT Reminder/Recall Patient due for screening colonoscopy 06/20/2034. Normal [facility] Basophils Auto (Bld) [#/Vol] on 05-19-2024 Basophils (Bld) [#/Vol] Automated basophil count High 0.0-0.1 [facility] Basophils/100 WBC Auto (Bld) on 05-19-2024 Basophils/100 WBC (Bld) Automated basophil % 0.2-2.0 [facility] Cholesterol in LDL Calc [Mas s/Vol]on 05-19-2024 Cholesterol in LDL [Mass/Vol] Cholesterol in LDL [Mass/volume] in Serum or Plasma by calculation [facility] Comment on above: <100 mg/dl [id number] 0-129 mg/dl NEAR OR ABOVE [id number] mg/dl BORDERLINE [id number] mg/dl HIGH>190 mg/dl VERY HIGH Cholesterol in VLDL Calc [Ma ss/Vol]on 05-19-2024 Cholesterol in VLDL [Mass/Vol] Cholesterol in VLDL [Mass/volume] in Serum or Plasma by calculation [facility] Eosinophils/100 WBC Auto (Bl d)on 05-19-2024 Eosinophils/100 WBC (Bld) Automated eosinophil % 0.9-7.0 [facility] Erythrocyte distribution wid th Auto (RBC) [Ratio]on 05-19-2024 Erythrocyte distribution width (RBC) [Ratio] Erythrocyte distribution width [Ratio] by Automated count High 11.0-15.0 [facility] Estimated glomerular filtrat ion rate (GFR) non- Americanon 05-19-2024 GFR/1.73 sq M.predicted among non-blacks MDRD (S/P/Bld) [Vol rate/Area] Estimated glomerular filtration rate (GFR) non- >=60 mL/min/1.73m 2 [facility] Globulin Calc (S) [Mass/Vol] on 05-19-2024 Globulin (S) [Mass/Vol] Serum globulin measurement by calculation (mass/volume) [facility] Hematocrit Auto (Bld) [Volum e fraction]on 05-19-2024 Hematocrit (Bld) [Volume fraction] Hematocrit [Volume Fraction] of Blood by Automated count Low 42.0-54.0 [facility] Hemoglobin [Mass/volume] in Bloodon 05-19-2024 Hemoglobin (Bld) [Mass/Vol] Hemoglobin [Mass/volume] in Blood Low 14.0-18.0 [facility] Laboratory - Chemistry and C hemistry - challengeon 05-19-2024 Albumin [Mass/Vol] 3.9 g/dL 3.4-5.0 [facility] ALP [Catalytic activity/Vol] 67 U/L 46-116 [facility] ALT [Catalytic activity/Vol] 20 U/L 16-63 [facility] AST [Catalytic activity/Vol] 21 U/L 15-37 [facility] Bilirubin [Mass/Vol] 0.8 mg/dL 0.2-1.0 [facility] Calcium [Mass/Vol] 8.6 mg/dL 8.5-10.1 [facility] Chloride [Moles/Vol] 104 mmol/L 98-107 [facility] Cholesterol [Mass/Vol] 106 mg/dL <=200 [facility] Cholesterol in HDL [Mass/Vol] 39 mg/dL Low 40-60 [facility] Comment on above: > or =60 mg/dl - LOW CARDIOVASCULAR RISK<40 mg/dl - HIGH CARDIOVASCULAR RISK CO2 [Moles/Vol] 28.3 mmol/L 21.0-32.0 [facility] Creatinine [Mass/Vol] 1.07 mg/dL 0.70-1.30 [facility] GFR/1.73 sq M.predicted MDRD (S/P/Bld) [Vol rate/Area] mL/min/{1.73_m2} >=60 mL/min/1.73m 2 [facility] Glucose [Mass/Vol] 100 mg/dL 74-106 [facility] Potassium [Moles/Vol] 4.3 mmol/L 3.5-5.1 [facility] Protein [Mass/Vol] 7.0 g/dL 6.4-8.2 [facility] Sodium [Moles/Vol] 141 mmol/L 136-145 [facility] Triglyceride [Mass/Vol] 77 mg/dL <=150 [facility] Urea nitrogen [Mass/Vol] 17.0 mg/dL 7.0-18.0 [facility] Urea nitrogen/Creatinine [Mass ratio] 15.9 mg/mg [facility] Laboratory - Hematology and Cell countson 05-19-2024 Immature granulocytes/100 WBC (Bld) 1.0 % High 0.0-0.5 [facility] Leukocytes [#/volume] correc mary for nucleated erythrocytes in Blood by Automated counon 05-19-2024 WBC corrected for nucl RBC Auto (Bld) [#/Vol] Leukocytes [#/volume] corrected for nucleated erythrocytes in Blood by Automated coun High 4.0-11.0 [facility] Lymphocytes Auto (Bld) [#/Vo l]on 05-19-2024 Lymphocytes (Bld) [#/Vol] Lymphocytes [#/volume] in Blood by Automated count Low 1.2-3.8 [facility] Lymphocytes/100 WBC Auto (Bl d)on 05-19-2024 Lymphocytes/100 WBC (Bld) Lymphocytes/100 leukocytes in Blood by Automated count Low 20.5-60.0 [facility] MCH Auto (RBC) [Entitic mass ]on 05-19-2024 MCH (RBC) [Entitic mass] MCH [Entitic mass] by Automated count Low 25.9-34.0 [facility] MCHC Auto (RBC) [Mass/Vol]on 05-19-2024 MCHC (RBC) [Mass/Vol] MCHC [Mass/volume] by Automated count Low 29.9-35.2 [facility] MCV Auto (RBC) [Entitic vol] on 05-19-2024 MCV (RBC) [Entitic vol] MCV [Entitic volume] by Automated count Low 80.0-94.0 [facility] Monocytes Auto (Bld) [#/Vol] on 05-19-2024 Monocytes (Bld) [#/Vol] Automated blood monocyte count 0.3-0.8 [facility] Monocytes/100 WBC Auto (Bld) on 05-19-2024 Monocytes/100 WBC (Bld) Automated monocyte % 1.7-12.0 [facility] Neutrophils Auto (Bld) [#/Vo l]on 05-19-2024 Neutrophils (Bld) [#/Vol] Neutrophils [#/volume] in Blood by Automated count High 1.4-6.5 [facility] Neutrophils/100 WBC Auto (Bl d)on 05-19-2024 Neutrophils/100 WBC (Bld) Automated neutrophil % High 43.0-75.0 [facility] No Panel Informationon 05-19 Eosinophils # (Auto) 0.4 10 3/uL 0.0-0.7 [facility] Immature Granulocyte # (Auto) 0.12 10 3/uL High 0.00-0.03 [facility] Prostate Specific Antigen Screen 1.36 ng/mL <=4.00 [facility] Platelet mean volume Auto (B ld) [Entitic vol]on 05-19-2024 Platelet mean volume (Bld) [Entitic vol] Platelet mean volume [Entitic volume] in Blood by Automated count Low 9.5-13.5 [facility] Platelets Auto (Bld) [#/Vol] on 05-19-2024 Platelets (Bld) [#/Vol] Platelets [#/volume] in Blood by Automated count High 150-450 [facility] RBC Auto (Bld) [#/Vol]on RBC (Bld) [#/Vol] Erythrocytes [#/volume] in Blood by Automated count 4.70-6.10 [facility] Serum or plasma albumin/glob ulin mass ratioon 05-19-2024 Albumin/Globulin [Mass ratio] Serum or plasma albumin/globulin mass ratio [facility] Serum or plasma anion gap de terminationon 05-19-2024 Anion gap [Moles/Vol] Serum or plasma anion gap determination [facility] Serum or plasma total choles terol/high density lipoprotein (HDL) cholesterol mass tejal 05-19-2024 Cholesterol.total/Ch olesterol in HDL [Mass ratio] Serum or plasma total cholesterol/high density lipoprotein (HDL) cholesterol mass rat [facility] Comment on above: 3.3 - 4.4 LOW RISK4. 4 - 7.1 AVERAGE RISK7.1 - 11.0 MODERATE RISK>11.0 HIGH RISK Basophils Auto (Bld) [#/Vol] on 04-17-2024 Basophils (Bld) [#/Vol] Automated basophil count High <0.11 [facility] Basophils/100 WBC Auto (Bld) on 04-17-2024 Basophils/100 WBC (Bld) Automated basophil % [facility] Blood manual differential co mment interpretation narrativeon 04-17-2024 Manual differential comment Van (Bld) [Interp] Blood manual differential comment interpretation narrative [facility] CBC W Auto Differential pane l (Bld)on 04-17-2024 Basophils (Bld) [#/Vol] 0.27 10*3/uL High <0.11 [facility] Comment on above: Order Comment: Speci men Type: BLOOD SPECIMENOrdering Facility: [facility] Address: [address] [place] [address] Performed By: #### 5 7021-8 ####[facility] [id number] [place] [address] [place] Basophils/100 WBC (Bld) 1.8 % Normal [facility] Comment on above: Order Comment: Speci men Type: BLOOD SPECIMENOrdering Facility: [facility] Address: [address] [place] [address] Performed By: #### 5 7021-8 ####[facility] [id number] [place] [address] [place] Differential cell count method Nom (Bld) Auto Normal [facility] Comment on above: Order Comment: Speci men Type: BLOOD SPECIMENOrdering Facility: [facility] Address: [address] [place] [address] Performed By: #### 5 7021-8 ####[facility] [id number] [place] [address] [place] Eosinophils (Bld) [#/Vol] 0.46 10*3/uL High <0.46 [facility] Comment on above: Order Comment: Speci men Type: BLOOD SPECIMENOrdering Facility: [facility] Address: [address] [place] [address] Performed By: #### 5 7021-8 ####[facility] [id number] [place] [address] [place] Eosinophils/100 WBC (Bld) 3.1 % Normal [facility] Comment on above: Order Comment: Speci men Type: BLOOD SPECIMENOrdering Facility: [facility] Address: [address] [place] [address] Performed By: #### 5 7021-8 ####[facility] [id number] [place] [address] [place] Erythrocyte distribution width (RBC) [Ratio] 20.0 % High 11.5-15.0 [facility] Comment on above: Order Comment: Speci men Type: BLOOD SPECIMENOrdering Facility: [facility] Address: [address] [place] [address] Performed By: #### 5 7021-8 ####[facility] [id number] [place] [address] [place] Hematocrit (Bld) [Volume fraction] 41.1 % Normal 39.0-51.0 [facility] Comment on above: Order Comment: Speci men Type: BLOOD SPECIMENOrdering Facility: [facility] Address: [address] [place] [address] Performed By: #### 5 7021-8 ####[facility] [id number] [place] [address] [place] Hemoglobin (Bld) [Mass/Vol] 10.6 g/dL Low 13.0-17.0 [facility] Comment on above: Order Comment: Speci men Type: BLOOD SPECIMENOrdering Facility: [facility] Address: [address] [place] [address] Performed By: #### 5 7021-8 ####[facility] [id number] [place] [address] [place] Immature granulocytes (Bld) [#/Vol] 0.22 10*3/uL High <0.10 [facility] Comment on above: Order Comment: Speci men Type: BLOOD SPECIMENOrdering Facility: [facility] Address: [address] [place] [address] Performed By: #### 5 7021-8 ####[facility] [id number] [place] [address] [place] Immature granulocytes/100 WBC (Bld) 1.5 % Normal [facility] Comment on above: Order Comment: Speci men Type: BLOOD SPECIMENOrdering Facility: [facility] Address: [address] [place] [address] Performed By: #### 5 7021-8 ####[facility] [id number] [place] [address] [place] Lymphocytes (Bld) [#/Vol] 0.96 10*3/uL Low 1.00-4.00 [facility] Comment on above: Order Comment: Speci men Type: BLOOD SPECIMENOrdering Facility: [facility] Address: [address] [place] [address] Performed By: #### 5 7021-8 ####[facility] [id number] [place] [address] [place] Lymphocytes/100 WBC (Bld) 6.6 % Normal [facility] Comment on above: Order Comment: Speci men Type: BLOOD SPECIMENOrdering Facility: [facility] Address: [address] [place] [address] Performed By: #### 5 7021-8 ####[facility] [id number] [place] [address] [place] MCH (RBC) [Entitic mass] 18.5 pg Low 26.0-34.0 [facility] Comment on above: Order Comment: Speci men Type: BLOOD SPECIMENOrdering Facility: [facility] Address: [address] [place] [address] Performed By: #### 5 7021-8 ####[facility] [id number] [place] [address] [place] MCHC (RBC) [Mass/Vol] 25.8 g/dL Low 30.5-36.0 [facility] Comment on above: Order Comment: Speci men Type: BLOOD SPECIMENOrdering Facility: [facility] Address: [address] [place] [address] Performed By: #### 5 7021-8 ####[facility] [id number] [place] [address] [place] MCV (RBC) [Entitic vol] 71.7 fL Low 80.0-100.0 [facility] Comment on above: Order Comment: Speci men Type: BLOOD SPECIMENOrdering Facility: [facility] Address: [address] [place] [address] Performed By: #### 5 7021-8 ####[facility] [id number] [place] [address] [place] Monocytes (Bld) [#/Vol] 0.55 10*3/uL Normal <0.87 [facility] Comment on above: Order Comment: Speci men Type: BLOOD SPECIMENOrdering Facility: [facility] Address: [address] [place] [address] Performed By: #### 5 7021-8 ####[facility] [id number] [place] [address] [place] Monocytes/100 WBC (Bld) 3.8 % Normal [facility] Comment on above: Order Comment: Speci men Type: BLOOD SPECIMENOrdering Facility: [facility] Address: [address] [place] [address] Performed By: #### 5 7021-8 ####[facility] [id number] [place] [address] [place] Neutrophils (Bld) [#/Vol] 12.18 10*3/uL High 1.45-7.50 [facility] Comment on above: Order Comment: Speci men Type: BLOOD SPECIMENOrdering Facility: [facility] Address: [address] [place] [address] Performed By: #### 5 7021-8 ####[facility] [id number] [place] [address] [place] Neutrophils/100 WBC (Bld) 83.2 % Normal [facility] Comment on above: Order Comment: Speci men Type: BLOOD SPECIMENOrdering Facility: [facility] Address: [address] [place] [address] Performed By: #### 5 7021-8 ####[facility] [id number] [place] [address] [place] Nucleated RBC (Bld) [#/Vol] 10*3/uL Normal <0.01 [facility] Comment on above: Order Comment: Speci men Type: BLOOD SPECIMENOrdering Facility: [facility] Address: [address] [place] [address] Performed By: #### 5 7021-8 ####[facility] [id number] [place] [address] [place] Nucleated RBC/100 WBC (Bld) [Ratio] 0.0 /100 WBC Normal [facility] Comment on above: Order Comment: Speci men Type: BLOOD SPECIMENOrdering Facility: [facility] Address: [address] [place] [address] Performed By: #### 5 7021-8 ####[facility] [id number] [place] [address] [place] Platelet mean volume (Bld) [Entitic vol] 8.9 fL Low 9.0-12.7 [facility] Comment on above: Order Comment: Speci men Type: BLOOD SPECIMENOrdering Facility: [facility] Address: [address] [place] [address] Performed By: #### 5 7021-8 ####[facility] [id number] [place] [address] [place] Platelets (Bld) [#/Vol] 916 10*3/uL High 150-400 [facility] Comment on above: Order Comment: Speci men Type: BLOOD SPECIMENOrdering Facility: [facility] Address: [address] [place] [address] Performed By: #### 5 7021-8 ####[facility] [id number] [place] [address] [place] RBC (Bld) [#/Vol] 5.73 10*6/uL Normal 4.20-6.00 [facility] Comment on above: Order Comment: Speci men Type: BLOOD SPECIMENOrdering Facility: [facility] Address: [address] [place] [address] Performed By: #### 5 7021-8 ####[facility] [id number] [place] [address] [place] WBC (Bld) [#/Vol] 14.64 10*3/uL High 3.70-11.00 [facility] Comment on above: Order Comment: Speci men Type: BLOOD SPECIMENOrdering Facility: [facility] Address: [address] [place] [address] Performed By: #### 5 7021-8 ####[facility] [id number] [address] [place]ATK[place] [id number] [place] [address] [place] CNNURSEon 04-17-2024 CNNURSE Nurse Visit (VENKAT TERRELL) ANIL LEOS ([id number]) 1965 M Date Time Provider Department 04/17/24 9:00 AM HANNAH LYONS During your visit [...] any study related procedures. PE: Sindy Abreu [employer] Patient is a Male with PV. Patient [...] course of Paxlovid. Pt saw his local bobbin winder 6-8 weeks ago and got a prescription for a topical antifungal topical cream for his fingernails that he has not started yet. Reviewed his medications and updated the grid. Pt leaving for [place] tomorrow for one week and will be [...] 0 Enrique WILLINGHAM et alJ Clin Oncol 2012;30:2111-3300. PAST MEDICAL HISTORY Diagnosis Date Status/Active Issues [...] MESH REPAIR HX ~1998 REMOVE TONSILS/ADENOIDS,<11 Y/O ~1970s Social history: Smoking status: nonsmoker ETOH intake: Drinks on average 1-2 times per week, 2 rum and cokes. Denies recreational drug use. 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 Normal [facility] CNOVSPon 04-17-2024 CNOVSP Visit (SP) Office (HEMAMN) ANIL LEOS ([id number]) 1965 M Date Time Provider Department 04/17/24 9:00 AM LOIS, ANNIE HEMAMN During your visit today, we recorded the following information about you: Temperature Pulse Respiration Blood pressure 97.8 degrees 74/minute 18/minute 126/66 Weight 85 kg Annie Abreu APRN.CNP 04/17/2024 10:16 AM Signed Some elements copied from note on 01/26/2024, the elements have been updated and all reflect current decision making from today, 04/17/2024. [facility] Clinical Note Assessment and Plan In [...] which included preparing to see the patient, [id number] patient care, completing clinical documentation, obtaining and/or reviewing separately obtained history, performing a medically appropriate examination, counseling and educating the patient/family/careg iver, ordering medications, tests, or procedures, communicating with other HCPs (not separately reported), independently interpreting results (not separately reported), communicating results to the patient/family/careg iver, and care coordination (not separately reported). Annie Abreu APRN.[employer] Visit Details Past Medical History Mr. Leos [...] started Paxlovid on 02/06/2024. He saw his bobbin winder ~ 7 weeks ago for routine follow-up [...] be taking a 7 day trip to [place] later this week (Tuesday to Tuesday) and [...] 0 Enrique WILLINGHAM et alJ Clin Oncol 2012;30:8400-3751. Review of Systems Completed and negative aside from that noted above in HPI/Interval history. Adjunct Histories PAST MEDICAL HISTORY Diagnosis Date Elevated prostate specific antigen (PSA) Hypertension REYMUNDO (obstructive sleep apnea) Polycythemia Seasonal aller (more content not included)... Normal [facility] Comprehensive metabolic 2000 panelon 04-17-2024 Albumin [Mass/Vol] 4.5 g/dL Normal 3.9-4.9 [facility] Comment on above: Order Comment: Speci men Type: BLOOD SPECIMENOrdering Facility: [facility] Address: [address] [place] [address] Performed By: #### 2 4323-8 ####[facility] [id number] [place] [address] [place] ALP [Catalytic activity/Vol] 65 U/L Normal 38-113 [facility] Comment on above: Order Comment: Speci men Type: BLOOD SPECIMENOrdering Facility: [facility] Address: [address] [place] [address] Performed By: #### 2 4323-8 ####[facility] [id number] [place] [address] [place] ALT [Catalytic activity/Vol] 18 U/L Normal 10-54 [facility] Comment on above: Order Comment: Speci men Type: BLOOD SPECIMENOrdering Facility: [facility] Address: [address] [place] [address] Performed By: #### 2 4323-8 ####[facility] [id number] [place] [address] [place] Anion gap [Moles/Vol] 9 mmol/L Normal 8-15 [facility] Comment on above: Order Comment: Speci men Type: BLOOD SPECIMENOrdering Facility: [facility] Address: [address] [place] [address] Performed By: #### 2 4323-8 ####[facility] [id number] [place] [address] [place] AST [Catalytic activity/Vol] 24 U/L Normal 14-40 [facility] Comment on above: Order Comment: Speci men Type: BLOOD SPECIMENOrdering Facility: [facility] Address: [address] [place] [address] Performed By: #### 2 4323-8 ####[facility] [id number] [place] [address] [place] Bilirubin [Mass/Vol] 0.5 mg/dL Normal 0.2-1.3 [facility] Comment on above: Order Comment: Speci men Type: BLOOD SPECIMENOrdering Facility: [facility] Address: [address] [place] [address] Performed By: #### 2 4323-8 ####[facility] [id number] [place] [address] [place] Calcium [Mass/Vol] 9.1 mg/dL Normal 8.5-10.2 [facility] Comment on above: Order Comment: Speci men Type: BLOOD SPECIMENOrdering Facility: [facility] Address: [address] [place] [address] Performed By: #### 2 4323-8 ####[facility] [id number] [place] [address] [place] Chloride [Moles/Vol] 107 mmol/L Normal 98-107 [facility] Comment on above: Order Comment: Speci men Type: BLOOD SPECIMENOrdering Facility: [facility] Address: [address] [place] [address] Performed By: #### 2 4323-8 ####[facility] [id number] [place] [address] [place] CO2 [Moles/Vol] 27 mmol/L Normal 22-30 [facility] Comment on above: Order Comment: Speci men Type: BLOOD SPECIMENOrdering Facility: [facility] Address: [address] [place] [address] Performed By: #### 2 4323-8 ####[facility] [id number] [place] [address] [place] Creatinine [Mass/Vol] 1.00 mg/dL Normal 0.73-1.22 [facility] Comment on above: Order Comment: Speci men Type: BLOOD SPECIMENOrdering Facility: [facility] Address: [address] [place] [address] Performed By: #### 2 4323-8 ####[facility] [id number] [place] [address] [place] Creatinine and Glomerular filtration rate.predicted panel (S/P/Bld) 86 mL/min/1.73m??? Normal >=60 [facility] Comment on above: Order Comment: Speci men Type: BLOOD SPECIMENOrdering Facility: [facility] Address: [address] [place] [address] Result Comment: Romi mated Glomerular Filtration Rate [...] By: #### 2 4323-8 ####[facility] [id number] [place] [address] [place] Glucose [Mass/Vol] 84 mg/dL Normal 74-99 [facility] Comment on above: Order Comment: Speci men Type: BLOOD SPECIMENOrdering Facility: [facility] Address: [address] [id number] Result Comment: The [place] Diabetes Association (ADA) provides guidance for cutoff [...] Standards of Medical Care in Diabetes 2016, [place] Diabetes Association. Diabetes Care. 2016.39(Suppl 1). Performed By: #### 2 4323-8 ####[facility] [id number] [place] [address] [place] Potassium [Moles/Vol] 4.7 mmol/L Normal 3.7-5.1 [facility] Comment on above: Order Comment: Speci men Type: BLOOD SPECIMENOrdering Facility: [facility] Address: [address] [place] [address] Performed By: #### 2 4323-8 ####[facility] [id number] [place] [address] [place] Protein [Mass/Vol] 6.7 g/dL Normal 6.3-8.0 [facility] Comment on above: Order Comment: Speci men Type: BLOOD SPECIMENOrdering Facility: [facility] Address: [address] [place] [address] Performed By: #### 2 4323-8 ####[facility] [id number] [place] [address] [place] Sodium [Moles/Vol] 143 mmol/L Normal 136-144 [facility] Comment on above: Order Comment: Speci men Type: BLOOD SPECIMENOrdering Facility: [facility] Address: [address] [place] [address] Performed By: #### 2 4323-8 ####[facility] [id number] [place] [address] [place] Urea nitrogen [Mass/Vol] 20 mg/dL Normal 9-24 [facility] Comment on above: Order Comment: Speci men Type: BLOOD SPECIMENOrdering Facility: [facility] Address: [address] [place] [address] Performed By: #### 2 4323-8 ####[facility] [id number] [place] [address] [place] [id number] 04-17-2024 ECG01 Ventricular Rate : 71 BPM Atrial Rate : 71 BPM P-R Interval : 150 ms QRS Duration : 84 ms Q-T Interval : 402 ms QTC Calculation(Bazett) : 436 ms Calculated P [place] : 74 degrees Calculated R [place] : 46 degrees Calculated T [place] : 69 degrees NORMAL SINUS RHYTHM NORMAL ECG Confirmed by MD SHAHIDA, PhD, KRIS ([id number]) on 05/03/2024 12:19:27 PM NAME : ANIL LEOS PID : [id number] : 1965 Gender : Male Race : ORD : Procedure Date : Apr 17 2024 10:01:33 Edit Date : May 03 2024 12:19:33 Diagnosis: NORMAL SINUS RHYTHM NORMAL ECG Confirmed by MD SHAHIDA, PhD, KRIS ([id number]) on 05/03/2024 12:19:27 PM Test Reason : Location : 117 : CA2RE Overread By : MD SHAHIDA, PhD,KRIS Edited By : MD SHAHIDA, PhD,KRIS Referred By : BRYCE VENTURA Acquired by : kaylin lopez, Howard [facility] Eosinophils/100 WBC Auto (Bl d)on 04-17-2024 Eosinophils/100 WBC (Bld) Automated eosinophil % [facility] Erythrocyte distribution wid th Auto (RBC) [Ratio]on 04-17-2024 Erythrocyte distribution width (RBC) [Ratio] Erythrocyte distribution width [Ratio] by Automated count High 11.5-15.0 [facility] [place] [facility]emat[facility] Auto (Bld) [Volum e fraction]on 04-17-2024 Hematocrit (Bld) [Volume fraction] Hematocrit [Volume Fraction] of Blood by Automated count 39.0-51.0 [facility] [place] Hemoglobin [Mass/volume] in Bloodon 04-17-2024 Hemoglobin (Bld) [Mass/Vol] Hemoglobin [Mass/volume] in Blood Low 13.0-17.0 [facility] [place] Laboratory - Chemistry and C hemistry - challengeon 04-17-2024 Albumin [Mass/Vol] 4.5 g/dL 3.9-4.9 [facility] ALP [Catalytic activity/Vol] 65 U/L 38-113 [facility] [place] ALT [Catalytic activity/Vol] 18 U/L 10-54 [facility] [place] AST [Catalytic activity/Vol] 24 U/L 14-40 [facility] [place] Bilirubin [Mass/Vol] 0.5 mg/dL 0.2-1.3 [facility] Calcium [Mass/Vol] 9.1 mg/dL 8.5-10.2 [facility] Chloride [Moles/Vol] 107 mmol/L 98-107 [facility] CO2 [Moles/Vol] 27 mmol/L 22-30 [facility] [place] Creatinine [Mass/Vol] 1.00 mg/dL 0.73-1.22 [facility] [place] Glucose [Mass/Vol] 84 mg/dL 74-99 [facility] Comment on above: The [place] Diabete s Association (ADA) provides guidance for [...] Standards of Medical Care in Diabetes 2016, [place] Diabetes Association. Diabetes Care. 2016.39(Suppl 1). Potassium [Moles/Vol] 4.7 mmol/L 3.7-5.1 [facility] [place] Sodium [Moles/Vol] 143 mmol/L 136-144 [facility] Urea nitrogen [Mass/Vol] 20 mg/dL 9- [facility] [place] Laboratory - Hematology and Cell countson 04-17-2024 Eosinophils (Bld) [#/Vol] 0.46 10*3/uL High <0.46 [facility] [place] Immature granulocytes (Bld) [#/Vol] 0.22 10*3/uL High <0.10 [facility] [place] Immature granulocytes/100 WBC (Bld) 1.5 % [facility] [place] Leukocytes [#/volume] correc mary for nucleated erythrocytes in Blood by Automated counon 04-17-2024 WBC corrected for nucl RBC Auto (Bld) [#/Vol] Leukocytes [#/volume] corrected for nucleated erythrocytes in Blood by Automated coun High 3.70-11.00 [facility] [place] Lymphocytes Auto (Bld) [#/Vo l]on 04-17-2024 Lymphocytes (Bld) [#/Vol] Lymphocytes [#/volume] in Blood by Automated count Low 1.00-4.00 [facility] [place] Lymphocytes/100 WBC Auto (Bl d)on 04-17-2024 Lymphocytes/100 WBC (Bld) Lymphocytes/100 leukocytes in Blood by Automated count [facility] [place] MCH Auto (RBC) [Entitic mass ]on 04-17-2024 MCH (RBC) [Entitic mass] MCH [Entitic mass] by Automated count Low 26.0-34.0 [facility] [place] MCHC Auto (RBC) [Mass/Vol]on 04-17-2024 MCHC (RBC) [Mass/Vol] MCHC [Mass/volume] by Automated count Low 30.5-36.0 [facility] [place] MCV Auto (RBC) [Entitic vol] on 04-17-2024 MCV (RBC) [Entitic vol] MCV [Entitic volume] by Automated count Low 80.0-100.0 [facility] [place] MISC SEND OUT TST 1on 2024 MISC SCAN TEST RESULTS 1 Normal [facility] Comment on above: Order Comment: Speci men Type: BLOOD SPECIMEN Ordering Facility: [facility] Address: [address] [place] [address] Result Comment: Rivas mcfarlane REFERRAL LAB 1 (DROP-DOWN) Normal [facility] Comment on above: Order Comment: Specdylon flores Type: BLOOD SPECIMEN Ordering Facility: [facility] Address: [facility] [place] [address] Result Comment: Rivas mcfarlane TEST 1 Normal [facility] Comment on above: Order Comment: Speci sandra Type: BLOOD SPECIMEN Ordering Facility: [facility] Address: [facility] [place] [address] Result Comment: Rivas mcfarlane Monocytes Auto (Bld) [#/Vol] on 04-17-2024 Monocytes (Bld) [#/Vol] Automated blood monocyte count <0.87 [facility] [place] Monocytes/100 WBC Auto (Bld) on 04-17-2024 Monocytes/100 WBC (Bld) Automated monocyte % [facility] [place] Neutrophils Auto (Bld) [#/Vo l]on 04-17-2024 Neutrophils (Bld) [#/Vol] Neutrophils [#/volume] in Blood by Automated count High 1.45-7.50 [facility] [place] Neutrophils/100 WBC Auto (Bl d)on 04-17-2024 Neutrophils/100 WBC (Bld) Automated neutrophil % [facility] [place] No Panel Informationon 04-17 Estimated GFR (CKD-EPI) 86 mL/min/1.73m??? >=60 [facility] [place] Comment on above: Estimated Glomerular Filtration Rate [...] actual GFR. Reference Lab Notation See comment [facility] [place] Comment on above: Research Reference Lab Test Name See comment [facility] [place] Comment on above: Research Reporting Documentation 1 See comment [facility] [place] Comment on above: Research Nucleated RBC Auto (Bld) [#/ Vol]on 04-17-2024 Nucleated RBC (Bld) [#/Vol] Nucleated erythrocytes [#/volume] in Blood by Automated count <0.01 [facility] [place] Nucleated erythrocytes [Pres ence] in Blood by Automated counton 04-17-2024 Nucleated RBC Auto Ql (Bld) Nucleated erythrocytes [Presence] in Blood by Automated count [facility] [place] Platelet mean volume Auto (B ld) [Entitic vol]on 04-17-2024 Platelet mean volume (Bld) [Entitic vol] Platelet mean volume [Entitic volume] in Blood by Automated count Low 9.0-12.7 [facility] [place] Platelets Auto (Bld) [#/Vol] on 04-17-2024 Platelets (Bld) [#/Vol] Platelets [#/volume] in Blood by Automated count High 150-400 [facility] [place] Protein [Mass/volume] in Ser um or Plasmaon 04-17-2024 Protein [Mass/Vol] Protein [Mass/volume] in Serum or Plasma 6.3-8.0 [facility] [place] RBC Auto (Bld) [#/Vol]on RBC (Bld) [#/Vol] Erythrocytes [#/volume] in Blood by Automated count 4.20-6.00 [facility] [place] Serum or plasma anion gap de terminationon 04-17-2024 Anion gap [Moles/Vol] Serum or plasma anion gap determination 8-15 [facility] [place] CBC W Auto Differential pane l (Bld)on 01-26-2024 Basophils (Bld) [#/Vol] 0.22 10*3/uL High <0.11 [facility] Comment on above: Order Comment: Speci men Type: BLOOD SPECIMENOrdering Facility: [facility] Address: [address] [place] [address] Performed By: #### 5 7021-8 ####[facility] [id number] [place] [address] [place] Basophils/100 WBC (Bld) 1.8 % Normal [facility] Comment on above: Order Comment: Speci men Type: BLOOD SPECIMENOrdering Facility: [facility] Address: [address] [place] [address] Performed By: #### 5 7021-8 ####[facility] [id number] [place] [address] [place] Differential cell count method Nom (Bld) Auto Normal [facility] Comment on above: Order Comment: Speci men Type: BLOOD SPECIMENOrdering Facility: [facility] Address: [address] [place] [address] Performed By: #### 5 7021-8 ####[facility] [id number] [place] [address] [place] Eosinophils (Bld) [#/Vol] 0.41 10*3/uL Normal <0.46 [facility] Comment on above: Order Comment: Speci men Type: BLOOD SPECIMENOrdering Facility: [facility] Address: [address] [place] [address] Performed By: #### 5 7021-8 ####[facility] [id number] [place] [address] [place] Eosinophils/100 WBC (Bld) 3.3 % Normal [facility] Comment on above: Order Comment: Speci men Type: BLOOD SPECIMENOrdering Facility: [facility] Address: [address] [place] [address] Performed By: #### 5 7021-8 ####[facility] [id number] [place] [address] [place] Erythrocyte distribution width (RBC) [Ratio] 20.2 % High 11.5-15.0 [facility] Comment on above: Order Comment: Speci men Type: BLOOD SPECIMENOrdering Facility: [facility] Address: [address] [place] [address] Performed By: #### 5 7021-8 ####[facility] [id number] [place] [address] [place] Hematocrit (Bld) [Volume fraction] 41.6 % Normal 39.0-51.0 [facility] Comment on above: Order Comment: Speci men Type: BLOOD SPECIMENOrdering Facility: [facility] Address: [address] [place], [place] [address] Performed By: #### 5 7021-8 ####[facility] [id number] [place] [address] [place] Hemoglobin (Bld) [Mass/Vol] 10.8 g/dL Low 13.0-17.0 [facility] Comment on above: Order Comment: Speci men Type: BLOOD SPECIMENOrdering Facility: [facility] Address: [address] [place] [address] Performed By: #### 5 7021-8 ####[facility] [id number] [place] [address] [place] Immature granulocytes (Bld) [#/Vol] 0.27 10*3/uL High <0.10 [facility] Comment on above: Order Comment: Speci men Type: BLOOD SPECIMENOrdering Facility: [facility] Address: [address] [place] [address] Performed By: #### 5 7021-8 ####[facility] [id number] [place] [address] [place] Immature granulocytes/100 WBC (Bld) 2.2 % Normal [facility] Comment on above: Order Comment: Speci men Type: BLOOD SPECIMENOrdering Facility: [facility] Address: [address] [place] [address] Performed By: #### 5 7021-8 ####[facility] [id number] [place] [address] [place] Lymphocytes (Bld) [#/Vol] 0.96 10*3/uL Low 1.00-4.00 [facility] Comment on above: Order Comment: Speci men Type: BLOOD SPECIMENOrdering Facility: [facility] Address: [address] [place] [address] Performed By: #### 5 7021-8 ####[facility] [id number] [place] Lymphocytes/100 WBC (Bld) 7.8 % Normal [facility] Comment on above: Order Comment: Speci men Type: BLOOD SPECIMENOrdering Facility: [facility] Address: [address] [place] [address] Performed By: #### 5 7021-8 ####[facility] [id number] [place] [address] [place] MCH (RBC) [Entitic mass] 18.3 pg Low 26.0-34.0 [facility] Comment on above: Order Comment: Speci men Type: BLOOD SPECIMENOrdering Facility: [facility] Address: [address] [place] [address] Performed By: #### 5 7021-8 ####[facility] [id number] [place] [address] [place] MCHC (RBC) [Mass/Vol] 26.0 g/dL Low 30.5-36.0 [facility] Comment on above: Order Comment: Speci men Type: BLOOD SPECIMENOrdering Facility: [facility] Address: [address] [place] [address] Performed By: #### 5 7021-8 ####[facility] [id number] [place] [address] [place] MCV (RBC) [Entitic vol] 70.6 fL Low 80.0-100.0 [facility] Comment on above: Order Comment: Speci men Type: BLOOD SPECIMENOrdering Facility: [facility] Address: [address] [place] [address] Performed By: #### 5 7021-8 ####[facility] [id number] [place] [address] [place] Monocytes (Bld) [#/Vol] 0.43 10*3/uL Normal <0.87 [facility] Comment on above: Order Comment: Speci men Type: BLOOD SPECIMENOrdering Facility: [facility] Address: [address] [place] [address] Performed By: #### 5 7021-8 ####[facility] [id number] [place] [address] [place] Monocytes/100 WBC (Bld) 3.5 % Normal [facility] Comment on above: Order Comment: Speci men Type: BLOOD SPECIMENOrdering Facility: [facility] Address: [address] [place] [address] Performed By: #### 5 7021-8 ####[facility] [id number] [place] [address] [place] Neutrophils (Bld) [#/Vol] 10.01 10*3/uL High 1.45-7.50 [facility] Comment on above: Order Comment: Speci men Type: BLOOD SPECIMENOrdering Facility: [facility] Address: [address] [place] [address] Performed By: #### 5 7021-8 ####[facility] [id number] [place] [address] [place] Neutrophils/100 WBC (Bld) 81.4 % Normal [facility] Comment on above: Order Comment: Speci men Type: BLOOD SPECIMENOrdering Facility: [facility] Address: [address] [place] [address] Performed By: #### 5 7021-8 ####[facility] [id number] [place] [address] [place] Nucleated RBC (Bld) [#/Vol] 10*3/uL Normal <0.01 [facility] Comment on above: Order Comment: Speci men Type: BLOOD SPECIMENOrdering Facility: [facility] Address: [address] [place] [address] Performed By: #### 5 7021-8 ####[facility] [id number] [place] [address] [place] Nucleated RBC/100 WBC (Bld) [Ratio] 0.0 /100 WBC Normal [facility] Comment on above: Order Comment: Speci men Type: BLOOD SPECIMENOrdering Facility: [facility] Address: [address] [place] [address] Performed By: #### 5 7021-8 ####[facility] [id number] [place] [address] [place] Platelet mean volume (Bld) [Entitic vol] 8.5 fL Low 9.0-12.7 [facility] Comment on above: Order Comment: Speci men Type: BLOOD SPECIMENOrdering Facility: [facility] Address: [address] [place] [address] Performed By: #### 5 7021-8 ####[facility] [id number] [place] [address] [place] Platelets (Bld) [#/Vol] 823 10*3/uL High 150-400 [facility] Comment on above: Order Comment: Speci men Type: BLOOD SPECIMENOrdering Facility: [facility] Address: [address] [place] [address] Performed By: #### 5 7021-8 ####[facility] [id number] [place] [address] [place] RBC (Bld) [#/Vol] 5.89 10*6/uL Normal 4.20-6.00 [facility] Comment on above: Order Comment: Speci men Type: BLOOD SPECIMENOrdering Facility: [facility] Address: [address] [place] [address] Performed By: #### 5 7021-8 ####[facility] [id number] [place] [address] [place] WBC (Bld) [#/Vol] 12.30 10*3/uL High 3.70-11.00 [facility] Comment on above: Order Comment: Speci men Type: BLOOD SPECIMENOrdering Facility: [facility] Address: [address] [place] [address] Performed By: #### 5 7021-8 ####[facility] [id number] [address] [id number] [address] [place] CNNURSEon 01-26-2024 CNNURSE Nurse Visit (VENKAT TERRELL) ANIL LEOS ([id number]) 1965 M Date Time Provider Department 01/26/24 [...] 0 Enrique RM et alJ Clin Oncol 2012;30:1337-6497. PAST MEDICAL HISTORY Diagnosis Date Status/Active Issues [...] cokes. Denies recreational drug use. 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 Normal [facility] CNOVSPon 01-26-2024 CNOVSP Visit (SP) Office ([facility]) ANIL LEOS ([id number]) 1965 M Date Time Provider Department 01/26/24 11:00 AM BRYCE VENTURA During your visit today, we recorded the following information about you: Temperature Pulse Respiration Blood pressure 97.8 degrees 86/minute 18/minute 136/63 Weight 86.7 kg Bryce Ventura MD 01/30/2024 9:27 AM Signed Some elements copied from note on 11/03/2023, the elements have been updated and all reflect current decision making from today, 01/26/2024. [facility] Clinical Note Assessment and Plan In [...] past 6 months 0 Overall QoL 0 Ernique WILLINGHAM et alJ Clin Oncol 2012;30:8823-3166. Review of Systems PAIN ASSESSMENT: Negative for [...] of Onset: (more content not included)... Normal [facility] Comprehensive metabolic 2000 panelon 01-26-2024 Albumin [Mass/Vol] 4.5 g/dL Normal 3.9-4.9 [facility] Comment on above: Order Comment: Speci men Type: BLOOD SPECIMENOrdering Facility: [facility] Address: [address] [place] [address] Performed By: #### 2 4323-8 ####[facility] LABCLIA [id number] [place] [address] [place] ALP [Catalytic activity/Vol] 65 U/L Normal 38-113 [facility] Comment on above: Order Comment: Speci men Type: BLOOD SPECIMENOrdering Facility: [facility] Address: [address] [place] [address] Performed By: #### 2 4323-8 ####[facility] LABCLIA [id number] [place] [address] [place] ALT [Catalytic activity/Vol] 25 U/L Normal 10-54 [facility] Comment on above: Order Comment: Speci men Type: BLOOD SPECIMENOrdering Facility: [facility] Address: [address] [place] [address] Performed By: #### 2 4323-8 ####[facility] LABCLIA [id number] [place] [address] [place] Anion gap [Moles/Vol] 9 mmol/L Normal 8-15 [facility] Comment on above: Order Comment: Speci men Type: BLOOD SPECIMENOrdering Facility: [facility] Address: [address] [place] [address] Performed By: #### 2 4323-8 ####[facility] LABCLIA [id number] [place] [address] [place] AST [Catalytic activity/Vol] 30 U/L Normal 14-40 [facility] Comment on above: Order Comment: Speci men Type: BLOOD SPECIMENOrdering Facility: [facility] Address: [address] [place] [address] Performed By: #### 2 4323-8 ####[facility] LABCLIA [id number] [place] [address] [place] Bilirubin [Mass/Vol] 0.5 mg/dL Normal 0.2-1.3 [facility] Comment on above: Order Comment: Speci men Type: BLOOD SPECIMENOrdering Facility: [facility] Address: [address] [place] [address] Performed By: #### 2 4323-8 ####[facility] LABCLIA [id number] [place] [address] [place] Calcium [Mass/Vol] 9.1 mg/dL Normal 8.5-10.2 [facility] Comment on above: Order Comment: Speci men Type: BLOOD SPECIMENOrdering Facility: [facility] Address: [address] [place] [address] Performed By: #### 2 4323-8 ####[facility] LABCLIA [id number] [place] [address] [place] Chloride [Moles/Vol] 105 mmol/L Normal 98-107 [facility] Comment on above: Order Comment: Speci men Type: BLOOD SPECIMENOrdering Facility: [facility] Address: [address] [place] [address] Performed By: #### 2 4323-8 ####[facility] LABCLIA [id number] [place] [address] [place] CO2 [Moles/Vol] 26 mmol/L Normal 22-30 [facility] Comment on above: Order Comment: Speci men Type: BLOOD SPECIMENOrdering Facility: [facility] Address: [address] [place] [address] Performed By: #### 2 4323-8 ####[facility] LABCLIA [id number] [place] [address] [place] Creatinine [Mass/Vol] 0.90 mg/dL Normal 0.73-1.22 [facility] Comment on above: Order Comment: Speci men Type: BLOOD SPECIMENOrdering Facility: [facility] Address: [address] [place] [address] Performed By: #### 2 4323-8 ####[facility] LABCLIA [id number] [address] [place] [facility] Creatinine and Glomerular filtration rate.predicted panel (S/P/Bld) 98 mL/min/1.73m??? Normal >=60 [facility] Comment on above: Order Comment: Speci men Type: BLOOD SPECIMENOrdering Facility: [facility] Address: [address] [place] [address] Result Comment: Romi mated Glomerular Filtration Rate [...] actual GFR. Performed By: #### 2 4323-8 ####[facility] LABCLIA [id number] [place] [address] [place] Glucose [Mass/Vol] 87 mg/dL Normal 74-99 [facility] Comment on above: Order Comment: Speci men Type: BLOOD SPECIMENOrdering Facility: [facility] Address: [address] [place] [address] Result Comment: The [place] Diabetes Association (ADA) provides guidance for cutoff [...] Standards of Medical Care in Diabetes 2016, [place] Diabetes Association. Diabetes Care. 2016.39(Suppl 1). Performed By: #### 2 4323-8 ####[facility] LABIA [id number] [place] [address] [place] Potassium [Moles/Vol] 4.6 mmol/L Normal 3.7-5.1 [facility] Comment on above: Order Comment: Speci men Type: BLOOD SPECIMENOrdering Facility: [facility] Address: [address] [place] [address] Performed By: #### 2 4323-8 ####[facility] LABIA [id number] [place] [address] [place] Protein [Mass/Vol] 6.9 g/dL Normal 6.3-8.0 [facility] Comment on above: Order Comment: Speci men Type: BLOOD SPECIMENOrdering Facility: [facility] Address: [address] [place] [address] Performed By: #### 2 4323-8 ####[facility] LABIA [id number] [place] [address] [place] Sodium [Moles/Vol] 140 mmol/L Normal 136-144 [facility] Comment on above: Order Comment: Speci men Type: BLOOD SPECIMENOrdering Facility: [facility] Address: [address] [place] [address] Performed By: #### 2 4323-8 ####[facility] [id number] [place] [address] [place] Urea nitrogen [Mass/Vol] 19 mg/dL Normal 9-24 [facility] Comment on above: Order Comment: Speci men Type: BLOOD SPECIMENOrdering Facility: [facility] Address: [address] [place] [address] Performed By: #### 2 4323-8 ####[facility] [id number] [place] [address] [place] CBC W Auto Differential pane l (Bld)on 11-03-2023 Basophils (Bld) [#/Vol] 0.13 10*3/uL High <0.11 [facility] Comment on above: Order Comment: Speci men Type: BLOOD SPECIMEN Ordering Facility: [facility] Address: [address] [place] [address] Performed By: #### 5 7021-8 ####[facility] [id number] [place] [address] [place] Basophils/100 WBC (Bld) 1.1 % Normal [facility] Comment on above: Order Comment: Speci men Type: BLOOD SPECIMEN Ordering Facility: [facility] Address: [address] [place] [address] Performed By: #### 5 7021-8 ####[facility] [place] [id number] [place] [address] [place] Differential cell count method Nom (Bld) Auto Normal [facility] Comment on above: Order Comment: Speci men Type: BLOOD SPECIMEN Ordering Facility: [facility] Address: [address] [place] [address] Performed By: #### 5 7021-8 ####[facility] [id number] [place] [address] [place] Eosinophils (Bld) [#/Vol] 0.32 10*3/uL Normal <0.46 [facility] Comment on above: Order Comment: Speci men Type: BLOOD SPECIMEN Ordering [facility]: [facility] Address: [address] [place] [address] Performed By: #### 5 7021-8 ####[facility] [id number] [place] [address] [place] Eosinophils/100 WBC (Bld) 2.8 % Normal [facility] Comment on above: Order Comment: Speci men Type: BLOOD SPECIMEN Ordering [facility]: [facility] Address: [address] [place] [address] Performed By: #### 5 7021-8 ####[facility] [place] [id number] [place] [address] [place] Erythrocyte distribution width (RBC) [Ratio] 20.5 % High 11.5-15.0 [facility] Comment on above: Order Comment: Speci men Type: BLOOD SPECIMEN Ordering [facility]: [facility] Address: [address] [place] [address] Performed By: #### 5 7021-8 ####[facility] [place] [id number] [place] [address] [place] Hematocrit (Bld) [Volume fraction] 42.8 % Normal 39.0-51.0 [facility] Comment on above: Order Comment: Speci men Type: BLOOD SPECIMEN Ordering [facility]: [facility] Address: [address] [place] [address] Performed By: #### 5 7021-8 ####[facility] [id number] [place] [address] [place] Hemoglobin (Bld) [Mass/Vol] 11.0 g/dL Low 13.0-17.0 [facility] Comment on above: Order Comment: Speci men Type: BLOOD SPECIMEN Ordering [facility]: [facility] Address: [address] [place] [address] Performed By: #### 5 7021-8 ####[facility] [id number] [place] [address] [place] Immature granulocytes (Bld) [#/Vol] 0.16 10*3/uL High <0.10 [facility] Comment on above: Order Comment: Speci men Type: BLOOD SPECIMEN Ordering [facility]: [facility] Address: [address] [place] [address] Performed By: #### 5 7021-8 ####[facility] [id number] [place] [address] [place] Immature granulocytes/100 WBC (Bld) 1.4 % Normal [facility] Comment on above: Order Comment: Speci men Type: BLOOD SPECIMEN Ordering [facility]: [facility] Address: [address] [place] [address] Performed By: #### 5 7021-8 ####[facility] [id number] [place] [address] [place] Lymphocytes (Bld) [#/Vol] 0.96 10*3/uL Low 1.00-4.00 [facility] Comment on above: Order Comment: Speci men Type: BLOOD SPECIMEN Ordering [facility]: [facility] Address: [address] [place] [address] Performed By: #### 5 7021-8 ####[facility] [place] [id number] [place] [address] [place] Lymphocytes/100 WBC (Bld) 8.3 % Normal [facility] Comment on above: Order Comment: Speci men Type: BLOOD SPECIMEN Ordering [facility]: [facility] Address: [address] [place] [address] Performed By: #### 5 7021-8 ####[facility] [id number] [place] [address] [place] MCH (RBC) [Entitic mass] 18.2 pg Low 26.0-34.0 [facility] Comment on above: Order Comment: Speci men Type: BLOOD SPECIMEN Ordering [facility]: [facility] Address: [address] [place] [address] Performed By: #### 5 7021-8 ####[facility] [id number] [place] [address] [place] MCHC (RBC) [Mass/Vol] 25.7 g/dL Low 30.5-36.0 [facility] Comment on above: Order Comment: Speci men Type: BLOOD SPECIMEN Ordering [facility]: [facility] Address: [address] [place] [address] Performed By: #### 5 7021-8 ####[facility] [id number] [place] [address] [place] MCV (RBC) [Entitic vol] 71.0 fL Low 80.0-100.0 [facility] Comment on above: Order Comment: Speci men Type: BLOOD SPECIMEN Ordering [facility]: [facility] Address: [address] [place] [address] Performed By: #### 5 7021-8 ####[facility] [id number] [place] [address] [place] Monocytes (Bld) [#/Vol] 0.44 10*3/uL Normal <0.87 [facility] Comment on above: Order Comment: Speci men Type: BLOOD SPECIMEN Ordering [facility]: [facility] Address: [address] [place] [address] Performed By: #### 5 7021-8 ####[facility] [id number] [place] [address] [place] Monocytes/100 WBC (Bld) 3.8 % Normal [facility] Comment on above: Order Comment: Speci men Type: BLOOD SPECIMEN Ordering [facility]: [facility] Address: [address] [place] [address] Performed By: #### 5 7021-8 ####[facility] [id number] [place] [address] [place] Neutrophils (Bld) [#/Vol] 9.56 10*3/uL High 1.45-7.50 [facility] Comment on above: Order Comment: Speci men Type: BLOOD SPECIMEN Ordering [facility]: [facility] Address: [address] [place] [address] Performed By: #### 5 7021-8 ####[facility] [id number] [place] [address] [place] Neutrophils/100 WBC (Bld) 82.6 % Normal [facility] Comment on above: Order Comment: Speci men Type: BLOOD SPECIMEN Ordering [facility]: [facility] Address: [address] [place] [address] Performed By: #### 5 7021-8 ####[facility] [place] [id number] [place] [address] [place] Nucleated RBC (Bld) [#/Vol] 10*3/uL Normal <0.01 [facility] Comment on above: Order Comment: Speci men Type: BLOOD SPECIMEN Ordering [facility]: [facility] Address: [address] [place] [address] Performed By: #### 5 7021-8 ####[facility] [id number] [place] [address] [place] Nucleated RBC/100 WBC (Bld) [Ratio] 0.0 /100 WBC Normal [facility] Comment on above: Order Comment: Speci men Type: BLOOD SPECIMEN Ordering [facility]: [facility] Address: [address] [place] [address] Performed By: #### 5 7021-8 ####[facility] [id number] [place] [address] [place] Platelet mean volume (Bld) [Entitic vol] 8.2 fL Low 9.0-12.7 [facility] Comment on above: Order Comment: Speci men Type: BLOOD SPECIMEN Ordering [facility]: [facility] Address: [address] [place] [address] Performed By: #### 5 7021-8 ####[facility] [id number] [place] [address] [place] Platelets (Bld) [#/Vol] 764 10*3/uL High 150-400 [facility] Comment on above: Order Comment: Speci men Type: BLOOD SPECIMEN Ordering [facility]: [facility] Address: [address] [place] [address] Performed By: #### 5 7021-8 ####[facility] [place] [id number] [place] [address] [place] RBC (Bld) [#/Vol] 6.03 10*6/uL High 4.20-6.00 [facility] Comment on above: Order Comment: Speci men Type: BLOOD SPECIMEN Ordering [facility]: [facility] Address: [address] [place] [address] Performed By: #### 5 7021-8 ####[facility] [place] [id number] [place] [address] [place] WBC (Bld) [#/Vol] 11.57 10*3/uL High 3.70-11.00 [facility] Comment on above: Order Comment: Speci men Type: BLOOD SPECIMEN Ordering [facility]: [facility] Address: [address] [place] [address] Performed By: #### 5 7021-8 ####[facility] [id number] [place] [address] [place] CNNURSEon 11-03-2023 CNNURSE Nurse Visit (VENKAT TERRELL) ANIL LEOS ([id number]) 1965 M Date Time Provider Department 11/03/23 [...] 0 Enrique WILLINGHAM et alJ Clin Oncol 2012;30:7051-5431. PAST MEDICAL HISTORY Diagnosis Date Status/Active Issues [...] cokes. Denies recreational drug use. 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 Normal [facility] CNOVSPon 11-03-2023 CNOVSP Visit (SP) Office ([facility]) ANIL LEOS ([id number]) 1965 M Date Time Provider Department 11/03/23 [...] reflect current decision making from today, 11/03/2023. [facility] [place] Clinical Note Assessment and Plan In summary: [...] MD, MPH, FACP PGY-V Hematology/Oncology Fellow Pager: [phone] Date: 11/03/2023 Time: 11:48 AM Visit Details [...] 0 Enrique RM et alJ Clin Oncol 2012;30:5307-9224. Review of Systems PAIN ASSESSMENT: Negative for [...] Paternal Gran (more content not included)... Normal [facility] metabolic 2000 panelon 11-03-2023 Albumin [Mass/Vol] 4.7 g/dL Normal 3.9-4.9 [facility] Comment on above: Order Comment: Speci men Type: BLOOD SPECIMENOrdering Facility: [facility] Address: [address] [place] [address] Performed By: #### 2 4323-8 ####[facility] [id number] [place] [address] [place] ALP [Catalytic activity/Vol] 63 U/L Normal 38-113 [facility] Comment on above: Order Comment: Speci men Type: BLOOD SPECIMENOrdering Facility: [facility] Address: [address] [place] [address] Performed By: #### 2 4323-8 ####[facility] [id number] [place] [address] [place] ALT [Catalytic activity/Vol] 18 U/L Normal 10-54 [facility] Comment on above: Order Comment: Speci men Type: BLOOD SPECIMENOrdering Facility: [facility] Address: [address] [place] [address] Performed By: #### 2 4323-8 ####[facility] [place] [id number] [place] [address] [place] Anion gap [Moles/Vol] 8 mmol/L Normal 8-15 [facility] Comment on above: Order Comment: Speci men Type: BLOOD SPECIMENOrdering Facility: [facility] Address: [address] [place] [address] Performed By: #### 2 4323-8 ####[facility] [id number] [place] [address] [place] AST [Catalytic activity/Vol] 25 U/L Normal 14-40 [facility] Comment on above: Order Comment: Speci men Type: BLOOD SPECIMENOrdering Facility: [facility] Address: [address] [place] [address] Performed By: #### 2 4323-8 ####[facility] [id number] [place] [address] [place] Bilirubin [Mass/Vol] 0.6 mg/dL Normal 0.2-1.3 [facility] Comment on above: Order Comment: Speci men Type: BLOOD SPECIMENOrdering Facility: [facility] Address: [address] [place] [address] Performed By: #### 2 4323-8 ####[facility] [id number] [place] [address] [place] Calcium [Mass/Vol] 9.2 mg/dL Normal 8.5-10.2 [facility] Comment on above: Order Comment: Speci men Type: BLOOD SPECIMENOrdering Facility: [facility] Address: [address] [place] [address] Performed By: #### 2 4323-8 ####[facility] [id number] [place] [address] [place] Chloride [Moles/Vol] 105 mmol/L Normal 98-107 [facility] Comment on above: Order Comment: Speci men Type: BLOOD SPECIMENOrdering Facility: [facility] Address: [address] [place] [address] Performed By: #### 2 4323-8 ####[facility] [id number] [place] [address] [place] CO2 [Moles/Vol] 27 mmol/L Normal 22-30 [facility] Comment on above: Order Comment: Speci men Type: BLOOD SPECIMENOrdering Facility: [facility] Address: [address] [place] [address] Performed By: #### 2 4323-8 ####[facility] [id number] [place] [address] [place] Creatinine [Mass/Vol] 0.97 mg/dL Normal 0.73-1.22 [facility] Comment on above: Order Comment: Speci men Type: BLOOD SPECIMENOrdering Facility: [facility] Address: [address] [place] [address] Performed By: #### 2 4323-8 ####[facility] [id number] [place] [address] [place] Creatinine and Glomerular filtration rate.predicted panel (S/P/Bld) 90 mL/min/1.73m??? Normal >=60 [facility] Comment on above: Order Comment: Abhishek flores Type: BLOOD SPECIMENOrdering Facility: [facility] Address: [address] [place] [address] Result Comment: Romi mated Glomerular Filtration Rate [...] actual GFR. Performed By: #### 2 4323-8 ####[facility] [id number] [place] [address] [place] Glucose [Mass/Vol] 101 mg/dL High 74-99 [facility] Comment on above: Order Comment: Abhishek flores Type: BLOOD SPECIMENOrdering Facility: [facility] Address: [address] [place] [address] Result Comment: The [place] Diabetes Association (ADA) provides guidance for cutoff [...] Standards of Medical Care in Diabetes 2016, [place] Diabetes Association. Diabetes Care. 2016.39(Suppl 1). Performed By: #### 2 4323-8 ####[facility] [id number] [place] [address] [place] Potassium [Moles/Vol] 4.5 mmol/L Normal 3.7-5.1 [facility] Comment on above: Order Comment: Speci men Type: BLOOD SPECIMENOrdering Facility: [facility] Address: [address] [place] [address] Performed By: #### 2 4323-8 ####[facility] [place] [id number] [place] [address] [place] Protein [Mass/Vol] 6.9 g/dL Normal 6.3-8.0 [facility] Comment on above: Order Comment: Speci men Type: BLOOD SPECIMENOrdering Facility: [facility] Address: [address] [place] [address] Performed By: #### 2 4323-8 ####[facility] [place] [id number] [place] [address] [place] Sodium [Moles/Vol] 140 mmol/L Normal 136-144 [facility] Comment on above: Order Comment: Speci men Type: BLOOD SPECIMENOrdering Facility: [facility] Address: [address] [place] [address] Performed By: #### 2 4323-8 ####[facility] [place] [id number] [place] [address] [place] Urea nitrogen [Mass/Vol] 18 mg/dL Normal 9-24 [facility] Comment on above: Order Comment: Speci men Type: BLOOD SPECIMENOrdering Facility: [facility] Address: [address] [place] [address] Performed By: #### 2 4323-8 ####[facility] [id number] [place] [address] [place] Basophils Auto (Bld) [#/Vol] on 07-14-2023 Basophils (Bld) [#/Vol] 0.23 10*3/uL <0.11 [facility] Basophils/100 WBC Auto (Bld) on 07-14-2023 Basophils/100 WBC (Bld) 1.7 % [facility] Blood manual differential co mment interpretation narrativeon 07-14-2023 Manual differential comment Van (Bld) [Interp] Auto [facility] Eosinophils/100 WBC Auto (Bl d)on 07-14-2023 Eosinophils/100 WBC (Bld) 2.7 % [facility] Erythrocyte distribution wid th Auto (RBC) [Ratio]on 07-14-2023 Erythrocyte distribution width (RBC) [Ratio] 20.4 % 11.5-15.0 [facility] Hematocrit Auto (Bld) [Volum e fraction]on 07-14-2023 Hematocrit (Bld) [Volume fraction] 40.9 % 39.0-51.0 [facility] Hemoglobin [Mass/volume] in Bloodon 07-14-2023 Hemoglobin (Bld) [Mass/Vol] 10.6 g/dL 13.0-17.0 [facility] Laboratory - Chemistry and C hemistry - challengeon 07-14-2023 Albumin [Mass/Vol] 4.4 g/dL 3.9-4.9 [facility] ALP [Catalytic activity/Vol] 57 U/L 38-113 [facility] ALT [Catalytic activity/Vol] 20 U/L 10-54 [facility] AST [Catalytic activity/Vol] 23 U/L 14-40 [facility] Bilirubin [Mass/Vol] 0.6 mg/dL 0.2-1.3 [facility] Calcium [Mass/Vol] 8.9 mg/dL 8.5-10.2 [facility] Chloride [Moles/Vol] 105 mmol/L 97-105 [facility] CO2 [Moles/Vol] 26 mmol/L -30 [facility] Creatinine [Mass/Vol] 0.96 mg/dL 0.73-1.22 [facility] Glucose [Mass/Vol] 88 mg/dL 74-99 [facility] Comment on above: The [place] Diabete s Association (ADA) provides guidance for [...] Standards of Medical Care in Diabetes 2016, [place] Diabetes Association. Diabetes Care. 2016.39(Suppl 1). Magnesium [Mass/Vol] 2.3 mg/dL 1.7-2.3 [facility] Potassium [Moles/Vol] 4.2 mmol/L 3.7-5.1 [facility] Sodium [Moles/Vol] 140 mmol/L 136-144 [facility] Urea nitrogen [Mass/Vol] 18 mg/dL 9-24 [facility] Laboratory - Hematology and Cell countson 07-14-2023 Eosinophils (Bld) [#/Vol] 0.36 10*3/uL <0.46 [facility] Immature granulocytes (Bld) [#/Vol] 0.29 10*3/uL <0.10 [facility] Immature granulocytes/100 WBC (Bld) 2.2 % [facility] Leukocytes [#/volume] correc mary for nucleated erythrocytes in Blood by Automated counon 07-14-2023 WBC corrected for nucl RBC Auto (Bld) [#/Vol] 13.21 k/uL 3.70-11.00 [facility] Lymphocytes Auto (Bld) [#/Vo l]on 07-14-2023 Lymphocytes (Bld) [#/Vol] 1.14 10*3/uL 1.00-4.00 [facility] Lymphocytes/100 WBC Auto (Bl d)on 07-14-2023 Lymphocytes/100 WBC (Bld) 8.6 % [facility] MAGNESIUMon 07-14-2023 Magnesium [Mass/Vol] 2.3 mg/dL 1.7 - 2 .3 mg/dL [facility] MCH Auto (RBC) [Entitic mass ]on 07-14-2023 MCH (RBC) [Entitic mass] 18.8 pg 26.0-34.0 [facility] MCHC Auto (RBC) [Mass/Vol]on 07-14-2023 MCHC (RBC) [Mass/Vol] 25.9 g/dL 30.5-36.0 [facility] MCV Auto (RBC) [Entitic vol] on 07-14-2023 MCV (RBC) [Entitic vol] 72.4 fL 80.0-100.0 [facility] Magnesium [Mass/Vol]on 07-13 Interpretation and review of laboratory results Normal [facility] Monocytes Auto (Bld) [#/Vol] on 07-14-2023 Monocytes (Bld) [#/Vol] 0.59 10*3/uL <0.87 [facility] Monocytes/100 WBC Auto (Bld) on 07-14-2023 Monocytes/100 WBC (Bld) 4.5 % [facility] Neutrophils Auto (Bld) [#/Vo l]on 07-14-2023 Neutrophils (Bld) [#/Vol] 10.60 10*3/uL 1.45-7.50 [facility] Neutrophils/100 WBC Auto (Bl d)on 07-14-2023 Neutrophils/100 WBC (Bld) 80.3 % [facility] No Panel Informationon 07-13 Estimated GFR (CKD-EPI) 91 mL/min/1.73m??? >=60 [facility] Comment on above: Estimated Glomerular Filtration Rate [...] 07-14-2023 Nucleated RBC (Bld) [#/Vol] 10*3/uL <0.01 [facility] Nucleated erythrocytes [Pres ence] in Blood by Automated counton 07-14-2023 Nucleated RBC Auto Ql (Bld) 0.0 /100{WBC} [facility] Platelet mean volume Auto (B ld) [Entitic vol]on 07-14-2023 Platelet mean volume (Bld) [Entitic vol] 8.7 fL 9.0-12.7 [facility] [place] Platelets Auto (Bld) [#/Vol] on 07-14-2023 Platelets (Bld) [#/Vol] 913 10*3/uL 150-400 [facility] [place] Protein [Mass/volume] in Ser um or Plasmaon 07-14-2023 Protein [Mass/Vol] 6.4 g/dL 6.3-8.0 [facility] RBC Auto (Bld) [#/Vol]on RBC (Bld) [#/Vol] 5.65 10*6/uL 4.20-6.00 [facility] Serum or plasma anion gap de terminationon 07-14-2023 Anion gap [Moles/Vol] 9 mmol/L 9-18 [facility] [place] Basophils Auto (Bld) [#/Vol] on 06-16-2023 Basophils (Bld) [#/Vol] 0.00 10*3/uL <0.11 [facility] [place] Basophils/100 WBC Auto (Bld) on 06-16-2023 Basophils/100 WBC (Bld) 0.0 % [facility] [place] Blood manual differential co mment interpretation narrativeon 06-16-2023 Manual differential comment Van (Bld) [Interp] Manual [facility] [place] Eosinophils/100 WBC Auto (Bl d)on 06-16-2023 Eosinophils/100 WBC (Bld) 5.0 % [facility] [place] Erythrocyte distribution wid th Auto (RBC) [Ratio]on 06-16-2023 Erythrocyte distribution width (RBC) [Ratio] 20.7 % 11.5-15.0 [facility] [place] Hematocrit Auto (Bld) [Volum e fraction]on 06-16-2023 Hematocrit (Bld) [Volume fraction] 41.8 % 39.0-51.0 [facility] [place] Hemoglobin [Mass/volume] in Bloodon 06-16-2023 Hemoglobin (Bld) [Mass/Vol] 10.8 g/dL 13.0-17.0 [facility] [place] Laboratory - Chemistry and C hemistry - challengeon 06-16-2023 Albumin [Mass/Vol] 4.4 g/dL 3.9-4.9 [facility] ALP [Catalytic activity/Vol] 57 U/L 38-113 [facility] [place] ALT [Catalytic activity/Vol] 17 U/L 10-54 [facility] [place] AST [Catalytic activity/Vol] 19 U/L 14-40 [facility] [place] Bilirubin [Mass/Vol] 0.6 mg/dL 0.2-1.3 [facility] Calcium [Mass/Vol] 8.9 mg/dL 8.5-10.2 [facility] Chloride [Moles/Vol] 105 mmol/L 97-105 [facility] CO2 [Moles/Vol] 27 mmol/L 22-30 [facility] [place] Creatinine [Mass/Vol] 1.03 mg/dL 0.73-1.22 [facility] [place] Glucose [Mass/Vol] 94 mg/dL 74-99 [facility] Comment on above: The [place] Diabete s Association (ADA) provides guidance for [...] Standards of Medical Care in Diabetes 2016, [place] Diabetes Association. Diabetes Care. 2016.39(Suppl 1). Potassium [Moles/Vol] 4.8 mmol/L 3.7-5.1 [facility] [place] Sodium [Moles/Vol] 140 mmol/L 136-144 [facility] Urea nitrogen [Mass/Vol] 21 mg/dL 9-24 [facility] [place] Laboratory - Hematology and Cell countson 06-16-2023 Eosinophils (Bld) [#/Vol] 0.70 10*3/uL <0.46 [facility] [place] Leukocytes [#/volume] correc mary for nucleated erythrocytes in Blood by Automated counon 06-16-2023 WBC corrected for nucl RBC Auto (Bld) [#/Vol] 13.99 k/uL 3.70-11.00 [facility] [place] Lymphocytes Auto (Bld) [#/Vo l]on 06-16-2023 Lymphocytes (Bld) [#/Vol] 1.40 10*3/uL 1.00-4.00 [facility] [place] Lymphocytes/100 WBC Auto (Bl d)on 06-16-2023 Lymphocytes/100 WBC (Bld) 10.0 % [facility] [place] MCH Auto (RBC) [Entitic mass ]on 06-16-2023 MCH (RBC) [Entitic mass] 18.6 pg 26.0-34.0 [facility] [place] MCHC Auto (RBC) [Mass/Vol]on 06-16-2023 MCHC (RBC) [Mass/Vol] 25.8 g/dL 30.5-36.0 [facility] [place] MCV Auto (RBC) [Entitic vol] on 06-16-2023 MCV (RBC) [Entitic vol] 72.1 fL 80.0-100.0 [facility] [place] Monocytes Auto (Bld) [#/Vol] on 06-16-2023 Monocytes (Bld) [#/Vol] 0.70 10*3/uL <0.87 [facility] [place] Monocytes/100 WBC Auto (Bld) on 06-16-2023 Monocytes/100 WBC (Bld) 5.0 % [facility] [place] Neutrophils Auto (Bld) [#/Vo l]on 06-16-2023 Neutrophils (Bld) [#/Vol] 11.19 10*3/uL 1.45-7.50 [facility] [place] Neutrophils/100 WBC Auto (Bl d)on 06-16-2023 Neutrophils/100 WBC (Bld) 80.0 % [facility] [place] No Panel Informationon 06-15 Estimated GFR (CKD-EPI) 84 mL/min/1.73m??? >=60 [facility] [place] Comment on above: Estimated Glomerular Filtration Rate [...] Morphology Reviewed: see results of individual morphologies [facility] [place] RBC Fragments Few None Seen [facility] [place] Nucleated RBC Auto (Bld) [#/ Vol]on 06-16-2023 Nucleated RBC (Bld) [#/Vol] 10*3/uL <0.01 [facility] [place] Nucleated erythrocytes [Pres ence] in Blood by Automated counton 06-16-2023 Nucleated RBC Auto Ql (Bld) 0.0 /100{WBC} [facility] [place] Ovalocyte detectionon 2023 Ovalocytes LM Ql (Bld) Few [facility] [place] Platelet adequacy [Presence] in Blood by Light microscopyon 06-16-2023 Platelets LM Ql (Bld) Increased [facility] [place] Platelet mean volume Auto (B ld) [Entitic vol]on 06-16-2023 Platelet mean volume (Bld) [Entitic vol] 8.6 fL 9.0-12.7 [facility] [place] Platelets Auto (Bld) [#/Vol] on 06-16-2023 Platelets (Bld) [#/Vol] 894 10*3/uL 150-400 [facility] [place] Polychromasia [Presence] in Blood by Light microscopyon 06-16-2023 Polychromasia LM Ql (Bld) Slight [facility] [place] Protein [Mass/volume] in Ser um or Plasmaon 06-16-2023 Protein [Mass/Vol] 6.6 g/dL 6.3-8.0 [facility] RBC Auto (Bld) [#/Vol]on RBC (Bld) [#/Vol] 5.80 10*6/uL 4.20-6.00 [facility] Serum or plasma anion gap de terminationon 06-16-2023 Anion gap [Moles/Vol] 8 mmol/L 9-18 [facility] [place] Target cellson 06-16-2023 Target cells LM Ql (Bld) Few [facility] [place] Basophils Auto (Bld) [#/Vol] on 05-19-2023 Basophils (Bld) [#/Vol] 0.16 10*3/uL <0.11 [facility] [place] Basophils/100 WBC Auto (Bld) on 05-19-2023 Basophils/100 WBC (Bld) 1.4 % [facility] [place] Blood manual differential co mment interpretation narrativeon 05-19-2023 Manual differential comment Van (Bld) [Interp] Auto [facility] [place] CT Abdomen WO contraston [facility] Eosinophils/100 WBC Auto (Bl d)on 05-19-2023 Eosinophils/100 WBC (Bld) 3.8 % [facility] [place] Erythrocyte distribution wid th Auto (RBC) [Ratio]on 05-19-2023 Erythrocyte distribution width (RBC) [Ratio] 20.0 % 11.5-15.0 [facility] [place] Hematocrit Auto (Bld) [Volum e fraction]on 05-19-2023 Hematocrit (Bld) [Volume fraction] 38.5 % 39.0-51.0 [facility] [place] Hemoglobin [Mass/volume] in Bloodon 05-19-2023 Hemoglobin (Bld) [Mass/Vol] 10.2 g/dL 13.0-17.0 [facility] [place] Laboratory - Chemistry and C hemistry - challengeon 05-19-2023 Albumin [Mass/Vol] 4.4 g/dL 3.9-4.9 [facility] ALP [Catalytic activity/Vol] 55 U/L 38-113 [facility] [place] ALT [Catalytic activity/Vol] 18 U/L 10-54 [facility] [place] AST [Catalytic activity/Vol] 24 U/L 14-40 [facility] [place] Bilirubin [Mass/Vol] 0.4 mg/dL 0.2-1.3 [facility] Calcium [Mass/Vol] 9.0 mg/dL 8.5-10.2 [facility] Chloride [Moles/Vol] 105 mmol/L 97-105 [facility] CO2 [Moles/Vol] 26 mmol/L 22-30 [facility] [place] Creatinine [Mass/Vol] 0.98 mg/dL 0.73-1.22 [facility] [place] Glucose [Mass/Vol] 92 mg/dL 74-99 [facility] Comment on above: The [place] Diabete s Association (ADA) provides guidance for [...] Standards of Medical Care in Diabetes 2016, [place] Diabetes Association. Diabetes Care. 2016.39(Suppl 1). Potassium [Moles/Vol] 4.5 mmol/L 3.7-5.1 [facility] [place] Sodium [Moles/Vol] 140 mmol/L 136-144 [facility] Urea nitrogen [Mass/Vol] 18 mg/dL 9-24 [facility] [place] Laboratory - Hematology and Cell countson 05-19-2023 Eosinophils (Bld) [#/Vol] 0.43 10*3/uL <0.46 [facility] [place] Immature granulocytes (Bld) [#/Vol] 0.10 10*3/uL <0.10 [facility] [place] Immature granulocytes/100 WBC (Bld) 0.9 % [facility] [place] Leukocytes [#/volume] correc mary for nucleated erythrocytes in Blood by Automated counon 05-19-2023 WBC corrected for nucl RBC Auto (Bld) [#/Vol] 11.40 k/uL 3.70-11.00 [facility] [place] Lymphocytes Auto (Bld) [#/Vo l]on 05-19-2023 Lymphocytes (Bld) [#/Vol] 0.94 10*3/uL 1.00-4.00 [facility] [place] Lymphocytes/100 WBC Auto (Bl d)on 05-19-2023 Lymphocytes/100 WBC (Bld) 8.2 % [facility] [place] MCH Auto (RBC) [Entitic mass ]on 05-19-2023 MCH (RBC) [Entitic mass] 18.6 pg 26.0-34.0 [facility] [place] MCHC Auto (RBC) [Mass/Vol]on 05-19-2023 MCHC (RBC) [Mass/Vol] 26.5 g/dL 30.5-36.0 [facility] [place] MCV Auto (RBC) [Entitic vol] on 05-19-2023 MCV (RBC) [Entitic vol] 70.4 fL 80.0-100.0 [facility] [place] Monocytes Auto (Bld) [#/Vol] on 05-19-2023 Monocytes (Bld) [#/Vol] 0.49 10*3/uL <0.87 [facility] [place] Monocytes/100 WBC Auto (Bld) on 05-19-2023 Monocytes/100 WBC (Bld) 4.3 % [facility] [place] Neutrophils Auto (Bld) [#/Vo l]on 05-19-2023 Neutrophils (Bld) [#/Vol] 9.28 10*3/uL 1.45-7.50 [facility] [place] Neutrophils/100 WBC Auto (Bl d)on 05-19-2023 Neutrophils/100 WBC (Bld) 81.4 % [facility] [place] No Panel Informationon 05-18 Estimated GFR (CKD-EPI) 89 mL/min/1.73m??? >=60 [facility] [place] Comment on above: Estimated Glomerular Filtration Rate [...] 05-19-2023 Nucleated RBC (Bld) [#/Vol] 10*3/uL <0.01 [facility] [place] Nucleated erythrocytes [Pres ence] in Blood by Automated counton 05-19-2023 Nucleated RBC Auto Ql (Bld) 0.0 /100{WBC} [facility] [place] Platelet mean volume Auto (B ld) [Entitic vol]on 05-19-2023 Platelet mean volume (Bld) [Entitic vol] 8.6 fL 9.0-12.7 [facility] [place] Platelets Auto (Bld) [#/Vol] on 04-04-2024 Platelets (Bld) [#/Vol] 925 10*3/uL 150-400 [facility] [place] Protein [Mass/volume] in Ser um or Plasmaon 05-19-2023 Protein [Mass/Vol] 6.7 g/dL 6.3-8.0 [facility] RBC Auto (Bld) [#/Vol]on RBC (Bld) [#/Vol] 5.47 10*6/uL 4.20-6.00 [facility] Serum or plasma anion gap de terminationon 05-19-2023 Anion gap [Moles/Vol] 9 mmol/L 11-01 [facility] [place] CT ABDOMEN WO IVCONon [address] [facility] CT ABDOMEN WO IVCONon [address] [facility] CBC AUTO DIFFon 09-11-2021 BASO # 0.2 103/ul Critically high 0.0-0.1 [facility] Comment on above: Performed By: #### C BC #### [facility] [address] [place] [address] Dr. Roxanne Paulino Basophils/100 WBC (Bld) 1.5 % Normal 0.2-2.0 [facility] Comment on above: Performed By: #### C BC #### [facility] [address] [place] [address] Dr. Roxanne Paulino EO # 0.4 103/ul Normal 0.0-0.7 [facility] Comment on above: Performed By: #### C BC #### [facility] [address] [place] [address] Dr. Roxanne Paulino Eosinophils/100 WBC (Bld) 3.5 % Normal 0.9-7.0 [facility] Comment on above: Performed By: #### C BC #### [facility] [address] [place] [address] Dr. Roxanne Paulino Erythrocyte distribution width (RBC) [Ratio] 20.7 % Critically high 11.0-15.0 [facility] Comment on above: Performed By: #### C BC #### [facility] [address] [place] [address] Dr. Roxanne Paulino Hematocrit (Bld) [Volume fraction] 43.4 % Normal 42.0-54.0 [facility] Comment on above: Performed By: #### C BC #### [facility] [address] [address] [address] Roxanne Paulino Hemoglobin (Bld) [Mass/Vol] 11.5 g/dL Critically low 14.0-18.0 [facility] Comment on above: Performed By: #### C BC #### [facility] [address] [address] [address] Roxanne Paulino IG # 0.12 10e3/ul Critically high 0.00-0.03 [facility] Comment on above: Performed By: #### C BC #### [facility] [address] [place] [address] Dr. Roxanne Paulino IG % 1.0 % Critically high 0.0-0.5 [facility] Comment on above: Performed By: #### C BC #### [facility] [address] [address] [address] Roxanne Paulino LYMPH # 1.1 103/ul Critically low 1.2-3.8 [facility] Comment on above: Performed By: #### C BC #### [facility] [address] [place] [address] Dr. Roxanne Paulino Lymphocytes/100 WBC (Bld) 9.4 % Critically low 20.5-60.0 [facility] Comment on above: Performed By: #### C BC #### [facility] [address] [address] [address] Roxanne Paulino MANUAL DIFF REQ NO Normal [facility] Comment on above: Performed By: #### C BC #### [facility] [address] [address] [address] Roxanne Paulino MCH (RBC) [Entitic mass] 19.5 pg Critically low 25.9-34.0 [facility] Comment on above: Performed By: #### C BC #### [facility] [address] [place] [address] Dr. Roxanne Paulino MCHC (RBC) [Mass/Vol] 26.5 g/dL Critically low 29.9-35.2 [facility] Comment on above: Performed By: #### C BC #### [facility] [address] [place] [address] Dr. Roxanne Paulino MCV (RBC) [Entitic vol] 73.6 fL Critically low 80.0-94.0 [facility] Comment on above: Performed By: #### C BC #### [facility] [address] [address] [address] Roxanne Paulino MONO # 0.6 103/ul Normal 0.3-0.8 [facility] Comment on above: Performed By: #### C BC #### [facility] [address] [place] [address] Dr. Roxanne Paulino Monocytes/100 WBC (Bld) 4.9 % Normal 1.7-12.0 [facility] Comment on above: Performed By: #### C BC #### [facility] [address] [place] [address] Dr. Roxanne Paulino NEUT # 9.6 103/ul Critically high 1.4-6.5 [facility] Comment on above: Performed By: #### C BC #### [facility] [address] [place] [address] Dr. Roxanne Paulino Neutrophils/100 WBC (Bld) 79.7 % Critically high 43.0-75.0 [facility] Comment on above: Performed By: #### C BC #### [facility] [address] [place] [address] Dr. Roxanne Paulino Platelet mean volume (Bld) [Entitic vol] 8.0 fL Critically low 9.5-13.5 [facility] Comment on above: Performed By: #### C BC #### [facility] [address] [place] [address] Dr. Roxanne Paulino PLT 827 103/ul Critically high 150-450 [facility] Comment on above: Performed By: #### C BC #### [facility] [address] [place] [address] Dr. Roxanne Paulino RBC 5.90 106/ul Normal 4.70-6.10 [facility] Comment on above: Result Comment: 1+ H YPOCHROMIA 1+ POIKILOCYTOSIS 1+ OVALOCYTE SLIGHT TEAR DROP Performed By: #### C BC #### [facility] [address] [address] [address] Roxanne Paulino WBC 12.1 103/ul Critically high 4.0-11.0 [facility] Comment on above: Performed By: #### C BC #### [facility] [address] [address] [address] Roxanne Paulino LIPID PROFILEon 09-11-2021 CHOL-HDL RATIO NORM SEE BELOW Normal [facility] Comment on above: Result Comment: 3.3 - 4.4 LOW RISK 4.4 - 7.1 AVERAGE RISK 7.1 - 11.0 MODERATE RISK >11.0 HIGH RISK Performed By: #### L IPID, CMP #### [facility] [address] [address] [address] Roxanne Paulino Cholesterol [Mass/Vol] 144 mg/dL Normal <=200 [facility] Comment on above: Performed By: #### L IPID, CMP #### [facility] [address] [address] [address] Roxanne Paulino Cholesterol in HDL [Mass/Vol] 51 mg/dL Normal 40-60 [facility] Comment on above: Performed By: #### L IPID, CMP #### [facility] [address] [address] [address] Roxanne Paulino Cholesterol in LDL [Mass/Vol] 83.0 mg/dL Normal [facility] Comment on above: Performed By: #### L IPID, CMP #### [facility] [address] [address] [address] Roxanne Paulino Cholesterol.total/Ch olesterol in HDL [Mass ratio] 2.8 {ratio} Normal [facility] Comment on above: Performed By: #### L IPID, CMP #### [facility] [address] [address] [address] Roxanne Paulino HDL NORMAL > or = 60 mg/dl - LOW CARDIOVASCULAR RISK <40 mg/dl - HIGH CARDIOVASCULAR RISK Normal [facility] Comment on above: Performed By: #### L IPID, CMP #### [facility] [address] [place] [address] Dr. Roxanne Paulino LDL CALC NORMAL SEE BELOW Normal [facility] Comment on above: Result Comment: <100 mg/dl OPTIMAL 100 - 129 mg/dl NEAR OR ABOVE OPTIMAL 130 - 159 mg/dl BORDERLINE HIGH 160 - 189 mg/dl HIGH >190 mg/dl VERY HIGH Performed By: #### L IPID, CMP #### [facility] [address] [place] [address] Dr. Roxanne Paulino Triglyceride [Mass/Vol] 50 mg/dL Normal <=150 [facility] Comment on above: Performed By: #### L IPID, CMP #### [facility] [address] [place] [address] Dr. Roxanne Paulino VLDL CALC 10.0 mg/dL Normal [facility] Comment on above: Performed By: #### L IPID, CMP #### [facility] [address] [place] [address] Dr. Roxanne Paulino PROF 14(COMP METB)on 022 Albumin [Mass/Vol] 4.1 g/dL Normal 3.4-5.0 [facility] Comment on above: Performed By: #### L IPID, CMP #### [facility] [address] [place] [address] Dr. Roxanne Paulino Albumin/Globulin [Mass ratio] 1.4 {ratio} Normal [facility] Comment on above: Performed By: #### L IPID, CMP #### [facility] [address] [place] [address] Dr. Roxanne Paulino ALP [Catalytic activity/Vol] 55 U/L Normal 46-116 [facility] Comment on above: Performed By: #### L IPID, CMP #### [facility] [address] [address] [address] Roxanne Paulino ALT [Catalytic activity/Vol] 12 U/L Critically low 16-63 [facility] Comment on above: Performed By: #### L IPID, CMP #### [facility] [address] [address] [address] Roxanne Paulino Anion gap [Moles/Vol] 8.2 mmol/L Normal [facility] Comment on above: Performed By: #### L IPID, CMP #### [facility] [address] [address] [address] Roxanne Paulino AST [Catalytic activity/Vol] 14 U/L Critically low 15-37 [facility] Comment on above: Performed By: #### L IPID, CMP #### [facility] [address] [address] [address] Roxanne Paulino Bilirubin [Mass/Vol] 0.5 mg/dL Normal 0.2-1.0 [facility] Comment on above: Performed By: #### L IPID, CMP #### [facility] [address] [place] [address] Dr. Roxanne Paulino Calcium [Mass/Vol] 8.9 mg/dL Normal 8.5-10.1 [facility] Comment on above: Performed By: #### L IPID, CMP #### [facility] [address] [address] [address] Roxanne Paulino Chloride [Moles/Vol] 106 mmol/L Normal 98-107 [facility] Comment on above: Performed By: #### L IPID, CMP #### [facility] [address] [place] [address] Dr. Roxanne Paulino CO2 [Moles/Vol] 31.5 mmol/L Normal 21.0-32.0 [facility] Comment on above: Performed By: #### L IPID, CMP #### [facility] [address] [address] [address] Roxanne Paulino Creatinine [Mass/Vol] 1.06 mg/dL Normal 0.70-1.30 [facility] Comment on above: Performed By: #### L IPID, CMP #### [facility] [address] [address] [address] Roxanne Paulino EGFR-AF CROATIAN >60 Normal >=60 [facility] Comment on above: Performed By: #### L IPID, CMP #### [facility] [address] [address] [address] Roxanne Paulino EGFR-NON AF CROATIAN >60 Normal >=60 [facility] Comment on above: Performed By: #### L IPID, CMP #### [facility] [address] [address] [address] Roxanne Paulino Globulin (S) [Mass/Vol] 3.0 g/dL Normal [facility] Comment on above: Performed By: #### L IPID, CMP #### [facility] [address] [place] [address] Dr. Roxanne Paulino Glucose [Mass/Vol] 80 mg/dL Normal 74-106 [facility] Comment on above: Performed By: #### L IPID, CMP #### [facility] [address] [place] [address] Dr. Roxanne Paulino Potassium [Moles/Vol] 4.7 mmol/L Normal 3.5-5.1 [facility] Comment on above: Performed By: #### L IPID, CMP #### [facility] [address] [place] [address] Dr. Roxanne Paulino Protein [Mass/Vol] 7.1 g/dL Normal 6.4-8.2 [facility] Comment on above: Performed By: #### L IPID, CMP #### [facility] [address] [place] [address] Dr. Roxanne Paulino Sodium [Moles/Vol] 141 mmol/L Normal 136-145 [facility] Comment on above: Performed By: #### L IPID, CMP #### [facility] [address] [place] [address] Dr. Roxanne Paulino Urea nitrogen [Mass/Vol] 17.0 mg/dL Normal 7.0-18.0 [facility] Comment on above: Performed By: #### L IPID, CMP #### [facility] [address] [place] [address] Dr. Roxanne Paulino Urea nitrogen/Creatinine [Mass ratio] 16.0 mg/mg Normal [facility] Comment on above: Performed By: #### L IPID, CMP #### [facility] [address] [address] [address] ABDOMEN WO IVCONon [address] [facility] Reference Laboratory Testing Ordered By: Levi DomainUser on 2021 SARS-CoV-2 (COVID-19) RNA IAN+probe Ql (Resp) Not detected Invalid Interpretation Code Not Detected [facility] [place] [employer] Comment on above: Result Comment: This nucleic acid amplification test was developed and its performance characteristics determined by [employer]. Nucleic acid amplification tests include RT-PCR and [...] detected) result in this assay. Performed at: [address] [id number] PhD Jennie Yoo ERYTHROPOIETIN (EPO)on 10-02 Erythropoietin 2.2 mIU/mL Critically low 2.6-18.5 [facility] Comment on above: Result Comment: [employer] DxI 800 Immunoassay System . Values obtained with different assay methods or kits cannot be used interchangeably. Results cannot be interpreted as absolute evidence of the presence or absence of malignant disease. Performed By: #### E POLC #### [facility] [address], [place] [address] Lou Brady UA RANDOM W/MICROSCOPICon 08 -18-2021 BACTERIA NONE SEEN Normal NONE SEEN The [facility] Comment on above: Performed By: #### U AMIC #### [facility] [address] [place] [address] Lou Caitlyn Bilirubin Ql (U) Negative Normal NEGATIVE [facility] Comment on above: Performed By: #### U AMIC #### [facility] [address] [place], [place] [id number] Lou Caitlyn CAST NONE SEEN Normal NONE SEEN [facility] Comment on above: Performed By: #### U AMIC #### [facility] [address] [place] [address] Lou Caitlyn Clarity (U) CLEAR Normal CLEAR [facility] Comment on above: Performed By: #### U AMIC #### [facility] [address] [place] [address] Lou Caitlyn Color (U) LT. YELLOW Normal YELLOW [facility] Comment on above: Performed By: #### U AMIC #### [facility] [address] [place] [address] Lou Caitlyn Crystals LM Nom (Urine sed) NONE SEEN Normal NONE SEEN [facility] Comment on above: Performed By: #### U AMIC #### [facility] [address] [place] [address] Lou Caitlyn Epithelial cells LM Ql (Urine sed) RARE Normal NONE SEEN /RARE [facility] Comment on above: Performed By: #### U AMIC #### [facility] [address] [place] [address] Lou Caitlyn Glucose Ql (U) Negative Normal NEGATIVE [facility] Comment on above: Performed By: #### U AMIC #### [facility] [address] [place] [address] Lou Caitlyn Hemoglobin Ql (U) Negative Normal NEGATIVE [facility] Comment on above: Performed By: #### U AMIC #### [facility] [address] [place] [address] Luo Caitlyn Ketones Ql (U) Negative Normal NEGATIVE [facility] Comment on above: Performed By: #### U AMIC #### [facility] [address] [place] [address] Lou Caitlyn LEUKOCYTES Negative Normal NEGATIVE [facility] Comment on above: Performed By: #### U AMIC #### [facility] [address] [id number] Lou Caitlyn MUCOUS NONE SEEN Normal NONE SEEN [facility] Comment on above: Performed By: #### U AMIC #### [facility] [address] [id number] Lou Caitlyn Nitrite Ql (U) Negative Normal NEGATIVE [facility] Comment on above: Performed By: #### U AMIC #### [facility] [address] [place], [place] [id number] Lou Caitlyn pH (U) 6.5 [pH] Normal 5-9 [facility] Comment on above: Performed By: #### U AMIC #### [facility] [address] [place] [address] Lou Caitlyn RBC NONE SEEN Abnormal 0-2 [facility] Comment on above: Performed By: #### U AMIC #### [facility] [address] [place] [address] Lou Caitlyn SPEC GRAVITY 1.010 Normal 1.005-<=1.025 [facility] Comment on above: Performed By: #### U AMIC #### [facility] [address] [place] [address] Lou Caitlyn UA PROTEIN Negative Normal NEGATIVE/ TRACE [facility] Comment on above: Performed By: #### U AMIC #### [facility] [address] [place] [address] Lou Caitlyn Urobilinogen Qn (U) 0.2 {Ching'U}/dL Normal 0.2 - 1. 0 [facility] Comment on above: Performed By: #### U AMIC #### [facility] [address] [place] [address] Lou Caitlyn WBC NONE SEEN Normal NONE SEEN [facility] Comment on above: Performed By: #### U AMIC #### [facility] [address] [place] [address] Lou Caitlyn CBC AUTO DIFFon 08-16-2021 BASO # 0.2 103/ul Critically high 0.0-0.1 [facility] Comment on above: Performed By: #### C BC #### [facility] [address] [id number] Lou Brady Basophils/100 WBC (Bld) 1.8 % Normal 0.2-2.0 [facility] Comment on above: Performed By: #### C BC #### [facility] [address] [address] Lou Brady EO # 0.3 103/ul Normal 0.0-0.7 [facility] Comment on above: Performed By: #### C BC #### [facility] [address] [address] Lou Brady Eosinophils/100 WBC (Bld) 2.9 % Normal 0.9-7.0 [facility] Comment on above: Performed By: #### C BC #### [facility] [address] [address] Lou Brady Erythrocyte distribution width (RBC) [Ratio] 15.5 % Critically high 11.0-15.0 [facility] Comment on above: Performed By: #### C BC #### [facility] [address] [place] [address] Lou Brady Hematocrit (Bld) [Volume fraction] 57.3 % Critically high 42.0-54.0 [facility] Comment on above: Performed By: #### C BC #### [facility] [address] [address] Lou Brady Hemoglobin (Bld) [Mass/Vol] 18.8 g/dL Critically high 14.0-18.0 [facility] Comment on above: Performed By: #### C BC #### [facility] [address] [address] Lou Brady IG # 0.15 10e3/ul Critically high 0.00-0.03 [facility] Comment on above: Performed By: #### C BC #### [facility] [address] [address] Lourahul Brady IG % 1.4 % Critically high 0.0-0.5 [facility] Comment on above: Performed By: #### C BC #### [facility] [address] [place] [address] Lourahul Brady LYMPH # 1.0 103/ul Critically low 1.2-3.8 [facility] Comment on above: Performed By: #### C BC #### [facility] [address] [place] [address] Lou Brady Lymphocytes/100 WBC (Bld) 9.2 % Critically low 20.5-60.0 [facility] Comment on above: Performed By: #### C BC #### [facility] [address] [place] [address] Lou Brady MANUAL DIFF REQ NO Normal [facility] Comment on above: Performed By: #### C BC #### [facility] [address] [place] [address] Lourahul Brady MCH (RBC) [Entitic mass] 29.5 pg Normal 25.9-34.0 [facility] Comment on above: Performed By: #### C BC #### [facility] [address] [place] [address] Lou Brady MCHC (RBC) [Mass/Vol] 32.8 g/dL Normal 29.9-35.2 [facility] Comment on above: Performed By: #### C BC #### [facility] [address] [place] [address] Lou Brady MCV (RBC) [Entitic vol] 90.0 fL Normal 80.0-94.0 [facility] Comment on above: Performed By: #### C BC #### [facility] [address] [place] [address] Lourahul Coxen MONO # 0.6 103/ul Normal 0.3-0.8 [facility] Comment on above: Performed By: #### C BC #### [facility] [address] [place] [address] Lourahul Brady Monocytes/100 WBC (Bld) 5.2 % Normal 1.7-12.0 [facility] Comment on above: Performed By: #### C BC #### [facility] [address] [id number] Lou Brady NEUT # 8.4 103/ul Critically high 1.4-6.5 [facility] Comment on above: Performed By: #### C BC #### [facility] [address] [id number] Lou Brady Neutrophils/100 WBC (Bld) 79.5 % Critically high 43.0-75.0 [facility] Comment on above: Performed By: #### C BC #### [facility] [address] [place], [place] [id number] Lou Brady Platelet mean volume (Bld) [Entitic vol] 8.4 fL Critically low 9.5-13.5 [facility] Comment on above: Performed By: #### C BC #### [facility] [address] [place], [place] [id number] Lou Brady PLT 455 103/ul Critically high 150-450 [facility] Comment on above: Performed By: #### C BC #### [facility] [address] [place], [place] [id number] Lou Brady RBC 6.37 106/ul Critically high 4.70-6.10 [facility] Comment on above: Performed By: #### C BC #### [facility] [address] [place], [place] [id number] Lou Brady WBC 10.6 103/ul Normal 4.0-11.0 [facility] Comment on above: Performed By: #### C BC #### [facility] [address] [place], [place] [id number] Lou Brady LIPID PROFILEon 09-29-2020 CHOL-HDL RATIO NORM SEE BELOW Normal [facility] Comment on above: Result Comment: 3.3 - 4.4 LOW RISK 4.4 - 7.1 AVERAGE RISK 7.1 - 11.0 MODERATE RISK >11.0 HIGH RISK Performed By: #### L IPID, CMP #### [facility] [address] [place], [place] [address] Lou Caitlyn Cholesterol [Mass/Vol] 177 mg/dL Normal <=200 [facility] Comment on above: Performed By: #### L IPID, CMP #### [facility] [address] [id number] Lou Caitlyn Cholesterol in HDL [Mass/Vol] 60 mg/dL Normal [facility] Comment on above: Performed By: #### L IPID, CMP #### [facility] [address] [id number] Lou Caitlyn Cholesterol in LDL [Mass/Vol] 93.2 mg/dL Normal [facility] Comment on above: Performed By: #### L IPID, CMP #### [facility] [address] [id number] Lou Caitlyn Cholesterol.total/Ch olesterol in HDL [Mass ratio] 3.0 {ratio} Normal [facility] Comment on above: Performed By: #### L IPID, CMP #### [facility] [address] [id number] Lou Caitlyn HDL NORMAL > or = 60 mg/dl - LOW CARDIOVASCULAR RISK <40 mg/dl - HIGH CARDIOVASCULAR RISK Normal [facility] Comment on above: Performed By: #### L IPID, CMP #### [facility] [address] [id number] Lou Caitlyn LDL CALC NORMAL SEE BELOW Normal [facility] Comment on above: Result Comment: <100 mg/dl OPTIMAL 100 - 129 mg/dl NEAR OR ABOVE OPTIMAL 130 - 159 mg/dl BORDERLINE HIGH 160 - 189 mg/dl HIGH >190 mg/dl VERY HIGH Performed By: #### L IPID, CMP #### [facility] [address] [address] Lou Caitlyn Triglyceride [Mass/Vol] 119 mg/dL Normal <=150 [facility] Comment on above: Performed By: #### L IPID, CMP #### [facility] [address] [address] Lou Caitlyn VLDL CALC 23.8 mg/dL Normal [facility] Comment on above: Performed By: #### L IPID, CMP #### [facility] [address], [place] [address] Lou Caitlyn PROF 14(COMP METB)on 021 Albumin [Mass/Vol] 4.0 g/dL Normal 3.5-5.0 [facility] Comment on above: Performed By: #### L IPID, CMP #### [facility] [address], [place] [address] Lou Caitlyn Albumin/Globulin [Mass ratio] 1.3 {ratio} Normal [facility] Comment on above: Performed By: #### L IPID, CMP #### [facility] [address] [id number] Lou Caitlyn ALP [Catalytic activity/Vol] 63 U/L Normal 38-126 [facility] Comment on above: Performed By: #### L IPID, CMP #### [facility] [address] [place], [place] [id number] Lou Caitlyn ALT [Catalytic activity/Vol] 36 U/L Normal 21-72 [facility] Comment on above: Performed By: #### L IPID, CMP #### [facility] [address], [place] [address] Lou Caitlyn Anion gap [Moles/Vol] 8.7 mmol/L Normal [facility] Comment on above: Performed By: #### L IPID, CMP #### [facility] [address] [place], [place] [id number] Lou Caitlyn AST [Catalytic activity/Vol] 25 U/L Normal 17-59 [facility] Comment on above: Performed By: #### L IPID, CMP #### [facility] [address] [id number] Lou Caitlyn Bilirubin [Mass/Vol] 0.8 mg/dL Normal 0.2-1.3 [facility] Comment on above: Performed By: #### L IPID, CMP #### [facility] [address] [id number] Lou Caitlyn Calcium [Mass/Vol] 8.7 mg/dL Normal 8.4-10.2 [facility] Comment on above: Performed By: #### L IPID, CMP #### [facility] [address] [address] Lou Caitlyn Chloride [Moles/Vol] 102 mmol/L Normal 98-107 [facility] Comment on above: Performed By: #### L IPID, CMP #### [facility] [address] [place] [address] Lou Caitlyn CO2 [Moles/Vol] 34.6 mmol/L Critically high 22.0-30.0 [facility] Comment on above: Performed By: #### L IPID, CMP #### [facility] [address] [place] [address] Lou Caitlyn Creatinine [Mass/Vol] 1.06 mg/dL Normal 0.66-1.25 [facility] Comment on above: Performed By: #### L IPID, CMP #### [facility] [address] [place] [address] Lou Caitlyn EGFR-AF CROATIAN >60 Normal >=60 [facility] Comment on above: Performed By: #### L IPID, CMP #### [facility] [address] [place] [address] Lou Caitlyn EGFR-NON AF CROATIAN >60 Normal >=60 [facility] Comment on above: Performed By: #### L IPID, CMP #### [facility] [address] [place] [address] Lou Caitlyn Globulin (S) [Mass/Vol] 3.1 g/dL Normal [facility] Comment on above: Performed By: #### L IPID, CMP #### [facility] [address] [place] [address] Lou Caitlyn Glucose [Mass/Vol] 96 mg/dL Normal 74-106 [facility] Comment on above: Performed By: #### L IPID, CMP #### [facility] [address] [place] [address] Lou Caitlyn Potassium [Moles/Vol] 4.3 mmol/L Normal 3.4-5.0 [facility] Comment on above: Performed By: #### L IPID, CMP #### [facility] [address], [place] [address] Lou Caitlyn Protein [Mass/Vol] 7.1 g/dL Normal 6.1-8.2 [facility] Comment on above: Performed By: #### L IPID, CMP #### [facility] [address], [place] [address] Lou Caitlyn Sodium [Moles/Vol] 141 mmol/L Normal 137-145 [facility] Comment on above: Performed By: #### L IPID, CMP #### [facility] [address], [place] [address] Luo Caitlyn Urea nitrogen [Mass/Vol] 17.0 mg/dL Normal 9.0-20.0 [facility] Comment on above: Performed By: #### L IPID, CMP #### [facility] [address], [place] [address] Lou Caitlyn Urea nitrogen/Creatinine [Mass ratio] 16.0 mg/mg Normal [facility] Comment on above: Performed By: #### L IPID, CMP #### [facility] [address], [place] [address] Lou Caitlyn Vital Signs Date Time Vital Sign Value Performing Clinician Facility 10-04-2024 13:38-0400 Body mass index (BMI) [Ratio] 28.16 kg/m2 Annie Abreu APRN.CNP Work Phone: [facility] 10-04-2024 13:38-0400 Body temperature 97.39 [degF] Annie Abreu APRN.[employer] Work Phone: [facility] 10-04-2024 13:38-0400 Body weight 84 kg Annie Abreu APRN.CNP Work Phone: [facility] 10-04-2024 13:38-0400 Diastolic blood pressure 65 mm[Hg] Annie Abreu APRN.CNP Work Phone: [facility] Comment on above: Left arm sitting 10-04-2024 13:38-0400 Heart rate 78 /min Annie Abreu APRN.[employer] Work Phone: [facility] 10-04-2024 13:38-0400 Respiratory rate 15 /min Annie Abreu [employer] Work Phone: [facility] 10-04-2024 13:38-0400 SaO2% (BldA) [Mass fraction] 98 % Annie Abreu [employer] Work Phone: [facility] 10-04-2024 13:38-0400 Systolic blood pressure 130 mm[Hg] Annie Abreu [employer] Work Phone: [facility] Comment on above: Left arm sitting 07-12-2024 09:53-0400 Body height 172.7 cm Bryce Ventura MD Work Phone: [facility] 07-12-2024 09:53-0400 Body mass index (BMI) [Ratio] 28.69 kg/m2 Bryce Ventura MD Work Phone: [facility] 07-12-2024 09:53-0400 Body temperature 97.11 [degF] Bryce Ventura MD Work Phone: [facility] 07-12-2024 09:53-0400 Body weight 85.59 kg Bryce Ventura MD Work Phone: [facility] 07-12-2024 09:53-0400 Diastolic blood pressure 74 mm[Hg] Bryce Ventura MD Work Phone: [facility] 07-12-2024 09:53-0400 Heart rate 77 /min Bryce Ventura MD Work Phone: [facility] 07-12-2024 09:53-0400 Respiratory rate 18 /min Bryce Ventura MD Work Phone: [facility] 07-12-2024 09:53-0400 SaO2% (BldA) [Mass fraction] 99 % Bryce Ventura MD Work Phone: [facility] 07-12-2024 09:53-0400 Systolic blood pressure 129 mm[Hg] Bryce Ventura MD Work Phone: [facility] 05-18-2024 09:39-0400 Body height 177.8 cm [facility] 05-18-2024 09:39-0400 Body mass index (BMI) [Ratio] 26.6 kg/m2 [facility] 05-18-2024 09:39-0400 Body weight 84.02 kg [facility] 05-18-2024 09:39-0400 Diastolic blood pressure 78 mm[Hg] [facility] 05-18-2024 09:39-0400 Heart rate 98 /min [facility] 05-18-2024 09:39-0400 Respiratory rate 12 /min [facility] 05-18-2024 09:39-0400 Systolic blood pressure 130 mm[Hg] [facility] 04-17-2024 09:12-0500 Body mass index (BMI) [Ratio] 28.08 kg/m2 Annie Abreu APRN.[employer] Work Phone: [facility] 04-17-2024 09:12-0500 Body temperature 97.81 [degF] Annie Abreu APRN.[employer] Work Phone: [facility] 04-17-2024 09:12-0500 Body weight 85 kg Annie Abreu APRN.[employer] Work Phone: [facility] 04-17-2024 09:12-0500 Diastolic blood pressure 66 mm[Hg] Annie Abreu APRN.[employer] Work Phone: [facility] 04-17-2024 09:12-0500 Heart rate 74 /min Annie Abreu APRN.[employer] Work Phone: [facility] 04-17-2024 09:12-0500 Respiratory rate 18 /min Annie Abreu APRN.[employer] Work Phone: [facility] 04-17-2024 09:12-0500 SaO2% (BldA) [Mass fraction] 99 % Annie Abreu APRN.[employer] Work Phone: [facility] 04-17-2024 09:12-0500 Systolic blood pressure 126 mm[Hg] Annie Abreu APRN.CNP Work Phone: [facility] 01-26-2024 11:17-0500 Body mass index (BMI) [Ratio] 28.64 kg/m2 Bryce Ventura MD Work Phone: [facility] 01-26-2024 11:17-0500 Body temperature 97.81 [degF] Bryce Ventura MD Work Phone: [facility] 01-26-2024 11:17-0500 Body weight 86.7 kg Bryce Ventura MD Work Phone: [facility] 01-26-2024 11:17-0500 Diastolic blood pressure 63 mm[Hg] Bryce Ventura MD Work Phone: [facility] 01-26-2024 11:17-0500 Heart rate 86 /min Bryce Ventura MD Work Phone: [facility] 01-26-2024 11:17-0500 Respiratory rate 18 /min Bryce Ventura MD Work Phone: [facility] 01-26-2024 11:17-0500 SaO2% (BldA) [Mass fraction] 100 % Bryce Ventura MD Work Phone: [facility] 01-26-2024 11:17-0500 Systolic blood pressure 136 mm[Hg] Bryce Ventura MD Work Phone: [facility] 11-03-2023 11:11-0400 Body mass index (BMI) [Ratio] 28.21 kg/m2 Bryce Ventura MD Work Phone: [facility] 11-03-2023 11:11-0400 Body temperature 97.81 [degF] Bryce Ventura MD Work Phone: [facility] 11-03-2023 11:11-0400 Body weight 85.4 kg Bryce Ventura MD Work Phone: [facility] Comment on above: Shoes on 11-03-2023 11:11-0400 Diastolic blood pressure 56 mm[Hg] Bryce Ventura MD Work Phone: [facility] 11-03-2023 11:11-0400 Heart rate 76 /min Bryce Ventura MD Work Phone: [facility] 11-03-2023 11:11-0400 Respiratory rate 20 /min Bryce Ventura MD Work Phone: [facility] 11-03-2023 11:11-0400 SaO2% (BldA) [Mass fraction] 100 % Bryce Ventura MD Work Phone: [facility] Comment on above: RA 11-03-2023 11:11-0400 Systolic blood pressure 132 mm[Hg] Bryce Ventura MD Work Phone: [facility] 08-11-2023 09:23-0400 Body mass index (BMI) [Ratio] 27.74 kg/m2 Carmita Hernández MD Work Phone: [facility] 08-11-2023 09:23-0400 Body temperature 98.29 [degF] Carmita Hernández MD Work Phone: [facility] 08-11-2023 09:23-0400 Body weight 84 kg Carmita Hernández MD Work Phone: [facility] 08-11-2023 09:23-0400 Diastolic blood pressure 71 mm[Hg] Carmita Hernández MD Work Phone: [facility] Comment on above: Left arm sitting 08-11-2023 09:23-0400 Heart rate 72 /min Carmita Hernández MD Work Phone: [facility] 08-11-2023 09:23-0400 Respiratory rate 18 /min Carmita Hernández MD Work Phone: [facility] 08-11-2023 09:23-0400 SaO2% (BldA) [Mass fraction] 100 % Carmita Hernández MD Work Phone: [facility] 08-11-2023 09:23-0400 Systolic blood pressure 135 mm[Hg] Carmita Hernández MD Work Phone: [facility] Comment on above: Left arm sitting 07-19-2023 10:40-0400 Body height 177.8 cm [facility] 07-19-2023 10:40-0400 Body mass index (BMI) [Ratio] 26.2 kg/m2 [facility] 07-19-2023 10:40-0400 Body weight 83 kg [facility] 07-19-2023 10:40-0400 Diastolic blood pressure 68 mm[Hg] [facility] 07-19-2023 10:40-0400 Heart rate 86 /min [facility] 07-19-2023 10:40-0400 SaO2% (BldA) [Mass fraction] 97 % [facility] 07-19-2023 10:40-0400 Systolic blood pressure 122 mm[Hg] [facility] 07-14-2023 09:33-0400 Body mass index (BMI) [Ratio] 27.58 kg/m2 Vanna Mattson APRN.[employer] Work Phone: [facility] 07-14-2023 09:33-0400 Body temperature 98.29 [degF] Vanna Mattson APRN.[employer] Work Phone: [facility] 07-14-2023 09:33-0400 Body weight 83.5 kg Vanna Mattson APRN.[employer] Work Phone: [facility] Comment on above: shoes on 07-14-2023 09:33-0400 Diastolic blood pressure 67 mm[Hg] Vanna Mattson APRN.[employer] Work Phone: [facility] 07-14-2023 09:33-0400 Heart rate 79 /min Vanna Mattson APRN.[employer] Work Phone: [facility] 07-14-2023 09:33-0400 Respiratory rate 18 /min Vanna Mattson APRN.[employer] Work Phone: [facility] 07-14-2023 09:33-0400 SaO2% (BldA) [Mass fraction] 100 % Vanna Mattson APRN.[employer] Work Phone: [facility] 07-14-2023 09:33-0400 Systolic blood pressure 135 mm[Hg] Vanna Mattson APRN.[employer] Work Phone: [facility] 06-16-2023 08:53-0400 Body mass index (BMI) [Ratio] 27.59 kg/m2 Annie Abreu APRN.[employer] Work Phone: [facility] 06-16-2023 08:53-0400 Body temperature 97.2 [degF] Annie Abreu APRN.[employer] Work Phone: [facility] 06-16-2023 08:53-0400 Body weight 83.52 kg Annie Abreu APRN.[employer] Work Phone: [facility] Comment on above: shoes on 06-16-2023 08:53-0400 Diastolic blood pressure 70 mm[Hg] Annie Abreu APRN.[employer] Work Phone: [facility] 06-16-2023 08:53-0400 Heart rate 67 /min Annie Abreu APRN.[employer] Work Phone: [facility] 06-16-2023 08:53-0400 Respiratory rate 18 /min Annie Abreu APRN.[employer] Work Phone: [facility] 06-16-2023 08:53-0400 SaO2% (BldA) [Mass fraction] 100 % Annie Abreu APRN.[employer] Work Phone: [facility] 06-16-2023 08:53-0400 Systolic blood pressure 136 mm[Hg] Annie Abreu APRN.[employer] Work Phone: [facility] 05-19-2023 10:45-0400 Body height 174 cm Hannah Lyons RN Work Phone: [facility] 05-19-2023 10:17-0400 Body temperature 97.7 [degF] Annie Abreu MACHINE [employer] HELPER.[employer] Work Phone: [facility] 05-19-2023 10:17-0400 Body weight 83.8 kg Annielisa Abreu MACHINE [employer] HELPER.[employer] Work Phone: [facility] 05-19-2023 10:17-0400 Diastolic blood pressure 66 mm[Hg] Annie Abreu MACHINE [employer] HELPER.[employer] Work Phone: [facility] 05-19-2023 10:17-0400 Heart rate 74 /min Annie Abreu MACHINE [employer] HELPER.[employer] Work Phone: [facility] 05-19-2023 10:17-0400 Respiratory rate 18 /min Annie Abreu MACHINE [employer] HELPER.[employer] Work Phone: [facility] 05-19-2023 10:17-0400 SaO2% (BldA) [Mass fraction] 99 % Annie Abreu MACHINE [employer] HELPER.[employer] Work Phone: [facility] 05-19-2023 10:17-0400 Systolic blood pressure 125 mm[Hg] Annie Abreu MACHINE [employer] HELPER.[employer] Work Phone: [facility] 03-24-2023 09:49-0500 Body temperature 97.5 [degF] Annie Abreu MACHINE [employer] HELPER.[employer] Work Phone: [facility] 03-24-2023 09:49-0500 Body weight 83.9 kg Annie Abreu MACHINE [employer] HELPER.[employer] Work Phone: [facility] 03-24-2023 09:49-0500 Diastolic blood pressure 71 mm[Hg] Annie Abreu MACHINE [employer] HELPER.[employer] Work Phone: [facility] 03-24-2023 09:49-0500 Heart rate 72 /min Annielisa Abreu MACHINE [employer] HELPER.[employer] Work Phone: [facility] 03-24-2023 09:49-0500 Respiratory rate 18 /min Annielisa Steeleki MACHINE [employer] HELPER.[employer] Work Phone: [facility] 03-24-2023 09:49-0500 SaO2% (BldA) [Mass fraction] 100 % Annie Steeleki MACHINE [employer] HELPER.[employer] Work Phone: [facility] 03-24-2023 09:49-0500 Systolic blood pressure 142 mm[Hg] Annie Lois MACHINE [employer] HELPER.[employer] Work Phone: [facility] 01-27-2023 11:13-0500 Body height 175.3 cm Annielisa Abreu MACHINE [employer] HELPER.[employer] Work Phone: [facility] 01-27-2023 11:13-0500 Body temperature 98.1 [degF] Annie Abreu MACHINE [employer] HELPER.[employer] Work Phone: [facility] 01-27-2023 11:13-0500 Body weight 85.3 kg Annielisa Abreu MACHINE [employer] HELPER.[employer] Work Phone: [facility] 01-27-2023 11:13-0500 Diastolic blood pressure 71 mm[Hg] Annie Steeleki MACHINE [employer] HELPER.[employer] Work Phone: [facility] 01-27-2023 11:13-0500 Heart rate 72 /min Annie Abreu MACHINE [employer] HELPER.[employer] Work Phone: [facility] 01-27-2023 11:13-0500 Respiratory rate 15 /min Annielisa Abreu MACHINE [employer] HELPER.[employer] Work Phone: [facility] 01-27-2023 11:13-0500 SaO2% (BldA) [Mass fraction] 99 % Annie Steeleki MACHINE [employer] HELPER.[employer] Work Phone: [facility] 01-27-2023 11:13-0500 Systolic blood pressure 135 mm[Hg] Annielisa Laneanski MACHINE [employer] HELPER.[employer] Work Phone: [facility] 12-02-2022 11:50-0400 Diastolic blood pressure 70 mm[Hg] Hannah Lyons RN Work Phone: [facility] 12-02-2022 11:50-0400 Systolic blood pressure 136 mm[Hg] Hannah Lyons RN Work Phone: [facility] 10-07-2022 10:55-0400 Body temperature 97.39 [degF] Sheryl Param PA-C Work Phone: [facility] 10-07-2022 10:55-0400 Body weight 86.82 kg Sheryl Param PA-C Work Phone: [facility] 10-07-2022 10:55-0400 Diastolic blood pressure 65 mm[Hg] Sheryl Param PA-C Work Phone: [facility] 10-07-2022 10:55-0400 Heart rate 66 /min Sheryl Param PA-C Work Phone: [facility] 10-07-2022 10:55-0400 Respiratory rate 18 /min Sheryl Param PA-C Work Phone: [facility] 10-07-2022 10:55-0400 SaO2% (BldA) [Mass fraction] 100 % Sheryl Param PA-C Work Phone: [facility] 10-07-2022 10:55-0400 Systolic blood pressure 136 mm[Hg] Sheryl Param PA-C Work Phone: [facility] 10-06-2022 10:15-0400 Body height 177.8 cm Tigre Ball Other [employer] Other 10-06-2022 10:15-0400 Body mass index (BMI) [Ratio] 27.8 kg/m2 Tigre Ball Other [employer] Other 10-06-2022 10:15-0400 Body weight 87.91 kg Tigre Ball Other [employer] Other 10-06-2022 10:15-0400 Diastolic blood pressure 72 mm[Hg] Tigre Ball Other [employer] Other 10-06-2022 10:15-0400 Respiratory rate 12 /min Tigre Ball Other [employer] Other 10-06-2022 10:15-0400 Systolic blood pressure 126 mm[Hg] Tigre Ball Other [employer] Other 08-13-2022 13:50-0400 Body temperature 98.29 [degF] Annie Abreu MACHINE [employer] HELPER.[employer] Work Phone: [facility] 08-13-2022 13:50-0400 Body weight 85.41 kg Annie Abreu APRN.[employer] Work Phone: [facility] 08-13-2022 13:50-0400 Diastolic blood pressure 69 mm[Hg] Annie Abreu MACHINE [employer] HELPER.[employer] Work Phone: [facility] 08-13-2022 13:50-0400 Heart rate 79 /min Annie Abreu APRN.[employer] Work Phone: [facility] 08-13-2022 13:50-0400 Respiratory rate 18 /min Annie Abreu MACHINE [employer] HELPER.[employer] Work Phone: [facility] 08-13-2022 13:50-0400 SaO2% (BldA) [Mass fraction] 99 % Annie Abreu MACHINE [employer] HELPER.[employer] Work Phone: [facility] 08-13-2022 13:50-0400 Systolic blood pressure 132 mm[Hg] Annie Abreu MACHINE [employer] HELPER.[employer] Work Phone: [facility] 06-17-2022 11:05-0400 Body temperature 97.7 [degF] Sheryl Virgen PA-C Work Phone: [facility] 06-17-2022 11:05-0400 Body weight 84.37 kg Sheryl Sandhuberg PA-C Work Phone: [facility] 06-17-2022 11:05-0400 Diastolic blood pressure 66 mm[Hg] Sheryl Param PA-C Work Phone: [facility] 06-17-2022 11:05-0400 Heart rate 71 /min Sherylher Sandhuberg PA-C Work Phone: [facility] 06-17-2022 11:05-0400 Respiratory rate 18 /min Sheryl Param PA-C Work Phone: [facility] 06-17-2022 11:05-0400 SaO2% (BldA) [Mass fraction] 99 % Sheryl Param PA-C Work Phone: [facility] 06-17-2022 11:05-0400 Systolic blood pressure 132 mm[Hg] Sheryl Param PA-C Work Phone: [facility] 02-25-2022 13:15-0500 Body temperature 97.7 [degF] Bryce Ventura MD Work Phone: [facility] 02-25-2022 13:15-0500 Body weight 83.6 kg Bryce Ventura MD Work Phone: [facility] 02-25-2022 13:15-0500 Diastolic blood pressure 75 mm[Hg] Bryce Ventura MD Work Phone: [facility] 02-25-2022 13:15-0500 Heart rate 79 /min Bryce Ventura MD Work Phone: [facility] 02-25-2022 13:15-0500 Respiratory rate 18 /min Bryce Ventrua MD Work Phone: [facility] 02-25-2022 13:15-0500 SaO2% (BldA) [Mass fraction] 100 % Bryce Ventura MD Work Phone: [facility] 02-25-2022 13:15-0500 Systolic blood pressure 124 mm[Hg] Bryce Ventura MD Work Phone: [facility] 01-28-2022 11:26-0500 Body temperature 97.9 [degF] Meghan Graves MACHINE [employer] HELPER.[employer] Work Phone: [facility] 01-28-2022 11:26-0500 Body weight 84.14 kg Meghan Graves MACHINE [employer] HELPER.[employer] Work Phone: [facility] 01-28-2022 11:26-0500 Diastolic blood pressure 62 mm[Hg] Meghan Graves MACHINE [employer] HELPER.[employer] Work Phone: [facility] 01-28-2022 11:26-0500 Heart rate 88 /min Meghan Graves MACHINE [employer] HELPER.[employer] Work Phone: [facility] 01-28-2022 11:26-0500 Respiratory rate 18 /min Meghan Graves MACHINE [employer] HELPER.[employer] Work Phone: [facility] 01-28-2022 11:26-0500 SaO2% (BldA) [Mass fraction] 100 % Meghan Graves MACHINE [employer] HELPER.[employer] Work Phone: [facility] 01-28-2022 11:26-0500 Systolic blood pressure 137 mm[Hg] Meghan Graves MACHINE [employer] HELPER.[employer] Work Phone: [facility] 12-31-2021 11:04-0500 Body height 178.4 cm Meghan Graves MACHINE [employer] HELPER.[employer] Work Phone: [facility] 12-31-2021 11:04-0500 Body temperature 98.2 [degF] Meghan Graves MACHINE [employer] HELPER.[employer] Work Phone: [facility] 12-31-2021 11:04-0500 Body weight 82.56 kg Meghan Graves MACHINE [employer] HELPER.[employer] Work Phone: [facility] 12-31-2021 11:04-0500 Diastolic blood pressure 73 mm[Hg] Meghan Graves MACHINE [employer] HELPER.[employer] Work Phone: [facility] 12-31-2021 11:04-0500 Heart rate 78 /min Meghan Graves MACHINE [employer] HELPER.[employer] Work Phone: [facility] 12-31-2021 11:04-0500 Respiratory rate 18 /min Meghan Graves MACHINE [employer] HELPER.[employer] Work Phone: [facility] 12-31-2021 11:04-0500 SaO2% (BldA) [Mass fraction] 100 % Meghan Graves MACHINE [employer] HELPER.[employer] Work Phone: [facility] 12-31-2021 11:04-0500 Systolic blood pressure 127 mm[Hg] Meghan Graves MACHINE [employer] HELPER.[employer] Work Phone: [facility] 11-05-2021 12:58-0400 Body height 173.9 cm Meghan Graves MACHINE [employer] HELPER.[employer] Work Phone: [facility] 11-05-2021 12:58-0400 Body temperature 98.2 [degF] Meghan Graves MACHINE [employer] HELPER.[employer] Work Phone: [facility] 11-05-2021 12:58-0400 Body weight 83.37 kg Meghan Graves MACHINE [employer] HELPER.[employer] Work Phone: [facility] 11-05-2021 12:58-0400 Diastolic blood pressure 61 mm[Hg] Meghan Graves MACHINE [employer] HELPER.[employer] Work Phone: [facility] 11-05-2021 12:58-0400 Heart rate 88 /min Meghan Graves MACHINE [employer] HELPER.[employer] Work Phone: [facility] 11-05-2021 12:58-0400 Respiratory rate 16 /min Meghan Graves MACHINE [employer] HELPER.[employer] Work Phone: [facility] 11-05-2021 12:58-0400 SaO2% (BldA) [Mass fraction] 100 % Meghan Graves MACHINE [employer] HELPER.[employer] Work Phone: [facility] 11-05-2021 12:58-0400 Systolic blood pressure 129 mm[Hg] Meghan Graves MACHINE [employer] HELPER.[employer] Work Phone: [facility] 10-08-2021 13:14-0400 Body height 173.8 cm Elizabeth Dunn MACHINE [employer] HELPER.[employer] Work Phone: [facility] 10-08-2021 13:14-0400 Body temperature 97.5 [degF] Elizabeth Shaun MACHINE [employer] HELPER.[employer] Work Phone: [facility] 10-08-2021 13:14-0400 Body weight 82.83 kg Elizabeth Shaun MACHINE [employer] HELPER.[employer] Work Phone: [facility] 10-08-2021 13:14-0400 Diastolic blood pressure 61 mm[Hg] Elizabeth Shaun MACHINE [employer] HELPER.[employer] Work Phone: [facility] 10-08-2021 13:14-0400 Heart rate 76 /min Elizabeth Shaun MACHINE [employer] HELPER.[employer] Work Phone: [facility] 10-08-2021 13:14-0400 Respiratory rate 16 /min Elizabeth Shaun MACHINE [employer] HELPER.[employer] Work Phone: [facility] 10-08-2021 13:14-0400 SaO2% (BldA) [Mass fraction] 99 % Elizabeth Shaun MACHINE [employer] HELPER.[employer] Work Phone: [facility] 10-08-2021 13:14-0400 Systolic blood pressure 127 mm[Hg] Elizabeth Shaun MACHINE [employer] HELPER.[employer] Work Phone: [facility] 09-10-2021 13:33-0400 Body height 176.6 cm Bryce Ventura MD Work Phone: [facility] 09-10-2021 13:33-0400 Body temperature 97.9 [degF] Bryce Ventura MD Work Phone: [facility] 09-10-2021 13:33-0400 Body weight 84.19 kg Bryce Ventura MD Work Phone: [facility] 09-10-2021 13:33-0400 Diastolic blood pressure 66 mm[Hg] Bryce Ventura MD Work Phone: [facility] 09-10-2021 13:33-0400 Heart rate 69 /min Bryce Ventura MD Work Phone: [facility] 09-10-2021 13:33-0400 Respiratory rate 16 /min Bryce Ventura MD Work Phone: [facility] 09-10-2021 13:33-0400 SaO2% (BldA) [Mass fraction] 99 % Bryce Ventura MD Work Phone: [facility] 09-10-2021 13:33-0400 Systolic blood pressure 130 mm[Hg] Bryce Ventura MD Work Phone: [facility] 08-11-2021 12:48-0400 Body height 176.6 cm Elizabeth Shaun MACHINE [employer] HELPER.[employer] Work Phone: [facility] 08-11-2021 12:48-0400 Body temperature 97.81 [degF] Elizabeth Shaun MACHINE [employer] HELPER.[employer] Work Phone: [facility] 08-11-2021 12:48-0400 Body weight 84.28 kg Elizabeth Shaun MACHINE [employer] HELPER.[employer] Work Phone: [facility] 08-11-2021 12:48-0400 Diastolic blood pressure 69 mm[Hg] Elizabeth Shaun MACHINE [employer] HELPER.[employer] Work Phone: [facility] 08-11-2021 12:48-0400 Heart rate 72 /min Elizabeth Shaun MACHINE [employer] HELPER.[employer] Work Phone: [facility] 08-11-2021 12:48-0400 Respiratory rate 16 /min Elizabeth Shaun MACHINE [employer] HELPER.[employer] Work Phone: [facility] 08-11-2021 12:48-0400 SaO2% (BldA) [Mass fraction] 99 % Elizabeth Shaun MACHINE [employer] HELPER.[employer] Work Phone: [facility] 08-11-2021 12:48-0400 Systolic blood pressure 115 mm[Hg] Elizabeth Shaun MACHINE [employer] HELPER.[employer] Work Phone: [facility] 07-14-2021 10:08-0400 Body height 176.6 cm Bryce Ventura MD Work Phone: [facility] 07-14-2021 10:08-0400 Body temperature 97.9 [degF] Bryce Ventura MD Work Phone: [facility] 07-14-2021 10:08-0400 Body weight 84.82 kg Bryce Ventura MD Work Phone: [facility] 07-14-2021 10:08-0400 Diastolic blood pressure 63 mm[Hg] Bryce Ventura MD Work Phone: [facility] 07-14-2021 10:08-0400 Heart rate 70 /min Bryce Ventura MD Work Phone: [facility] 07-14-2021 10:08-0400 Respiratory rate 18 /min Bryce Ventura MD Work Phone: [facility] 07-14-2021 10:08-0400 SaO2% (BldA) [Mass fraction] 100 % Bryce Ventura MD Work Phone: [facility] 07-14-2021 10:08-0400 Systolic blood pressure 130 mm[Hg] Bryce Ventura MD Work Phone: [facility] 05-21-2021 10:48-0400 Body height 176.6 cm Meghan Graves APRN.[employer] Work Phone: [facility] 05-21-2021 10:48-0400 Body temperature 98.1 [degF] Meghan Graves MACHINE [employer] HELPER.[employer] Work Phone: [facility] 05-21-2021 10:48-0400 Body weight 86.82 kg Meghan Graves MACHINE [employer] HELPER.[employer] Work Phone: [facility] 05-21-2021 10:48-0400 Diastolic blood pressure 74 mm[Hg] Meghan Graves MACHINE [employer] HELPER.[employer] Work Phone: [facility] 05-21-2021 10:48-0400 Heart rate 73 /min Meghan Graves MACHINE [employer] HELPER.[employer] Work Phone: [facility] 05-21-2021 10:48-0400 Respiratory rate 18 /min Meghan Graves APRN.[employer] Work Phone: [facility] 05-21-2021 10:48-0400 SaO2% (BldA) [Mass fraction] 100 % Meghan Graves APRN.[employer] Work Phone: [facility] 05-21-2021 10:48-0400 Systolic blood pressure 134 mm[Hg] Meghan Graves APRN.[employer] Work Phone: [facility] Encounters Encounter Date Encounter Type Care Provider Facility Start: 10-09-2024 End: 10-09-2024 ambulatory Tigre Merida DO Work Phone: [facility] Work Phone: Start: 10-09-2024 End: 10-09-2024 Patient encounter procedure Tigre Merida -[facility] Work Phone: Start: 10-04-2024 End: 10-04-2024 Patient encounter procedure Annie Abreu APRN.[employer] Work Phone: [facility] Start: 10-04-2024 Non-patient / Non-visit Outside [facility] Work Phone: Start: 10-04-2024 End: 10-04-2024 Orders Only Michelle Gray MD Work Phone: Hematology/Oncology Comment on above: Polycythemia vera (H CC) (Primary Dx); Exam for clinical research; Anemia, unspecified type Polycythemia vera (H CC) (Primary Dx) Start: 10-02-2024 End: 10-02-2024 Telephone encounter Anaid Webster RN Hematology/Oncology Comment on above: Appointment Start: 07-13-2024 End: 07-13-2024 ambulatory [facility] Work Phone: Start: 07-13-2024 End: 07-13-2024 Patient encounter procedure Count Includes [facility] Physician [facility] Work Phone: Start: 07-12-2024 End: 07-12-2024 Chart abstracting Kaylin Lopez Research Coordinator Hematology/Oncology Comment on above: Research ([id number] / [id number] / [id number]) Start: 07-12-2024 End: 07-12-2024 Nursing evaluation of patient and report Charlotte Mejía RN Hematology/Oncology Comment on above: Polycythemia vera (H CC) (Primary Dx) Start: 07-12-2024 End: 07-12-2024 Patient encounter procedure Bryce Ventura MD Work Phone: Hematology/Oncology Start: 07-12-2024 Non-patient / Non-visit [facility] Work Phone: Start: 07-12-2024 End: 07-12-2024 ambulatory Bryce Ventura MD Work Phone: Hematology/Oncology Comment on above: Polycythemia vera (H CC) (Primary Dx) Start: 06-20-2024 End: 06-20-2024 ambulatory Jeremy ALDRICH Facility:[id number] Start: 06-06-2024 End: 06-06-2024 ambulatory TIGRE MERIDA Facility:[facility] Start: 05-21-2024 ambulatory [facility] Facility: [facility] Start: 05-19-2024 Non-patient / Non-visit [facility] Work Phone: Start: 05-18-2024 End: 05-18-2024 ambulatory [facility] Work Phone: Start: 05-18-2024 End: 05-18-2024 Encounter for general adult medical examination without abnormal findings [facility] Start: 05-18-2024 End: 05-18-2024 Patient encounter procedure [facility] Work Phone: Start: 04-17-2024 End: 04-17-2024 Chart abstracting Kaylin Lopez Research Coordinator Hematology/Oncology Comment on above: Research ([id number] [id number]) Start: 04-17-2024 End: 04-17-2024 Nursing evaluation of patient and report Hannah Lyons RN Work Phone: Hematology/Oncology Comment on above: Polycythemia vera (H CC) (Primary Dx) Start: 04-17-2024 End: 04-17-2024 Patient encounter procedure Annie Lois MACHINE [employer] HEL[employer] Work Phone: Hematology/Oncology Start: 04-17-2024 End: 04-17-2024 Patient entered into trial Annie Laneanski MACHINE [employer] HEL[employer] Work Phone: [facility] Start: 04-17-2024 Non-patient / Non-visit Count Includes [facility] Physician [facility] Work Phone: Start: 04-17-2024 End: 04-17-2024 ambulatory Annie Lois MACHINE [employer] HEL[employer] Work Phone: Hematology/Oncology Comment on above: Polycythemia vera (H CC) (Primary Dx); Research study patient Start: 02-24-2024 End: 04-17-2024 Orders Only Bryce Ventura MD Work Phone: Hematology/Oncology Comment on above: PV (polycythemia torrey a) (HCC) (Primary Dx) Start: 02-03-2024 Patient encounter status [facility] Start: 01-26-2024 End: 01-26-2024 Chart abstracting Alana Beck Research Coordinator Hematology/Oncology Comment on above: Research (PTG [id number]) Start: 01-26-2024 End: 01-26-2024 Nursing evaluation [...] CC) (Primary Dx) Start: 08-11-2023 End: 08-11-2023 ambulatory Carmita Hernández MD Work Phone: Hematology/Oncology Comment on above: Polycythemia vera (H CC) [D45] (Primary Dx) Start: 08-11-2023 End: 08-11-2023 Nursing evaluation of patient and report Anaid Mabry RN Hematology/Oncology Comment on above: Polycythemia vera (H CC) (Primary Dx) Start: 08-11-2023 End: 08-11-2023 Patient encounter procedure Carmita Hernández MD Work Phone: Hematology/Oncology Start: 07-19-2023 End: 07-19-2023 ambulatory [facility] Work Phone: Start: 07-19-2023 End: 07-19-2023 Patient encounter procedure Count Includes [facility] Physician [facility] Work Phone: Start: 07-14-2023 End: 07-14-2023 Orders Only Tad Davis MD Work Phone: Hematology/Oncology Comment on above: Polycythemia vera (H CC) (Primary Dx) Start: 07-14-2023 Non-patient / Non-visit Count Includes [facility] Physician [facility] Work Phone: Start: 06-16-2023 End: 06-16-2023 ambulatory Annie Abreu APRN.[employer] Work Phone: Hematology/Oncology Comment on above: Polycythemia vera (H CC) (Primary Dx); Research study patient Start: 06-16-2023 End: 06-16-2023 Nursing evaluation of patient and report Hannah Lyons RN Work Phone: Hematology/Oncology Comment on above: Polycythemia vera (H CC) (Primary Dx) Start: 06-16-2023 End: 06-16-2023 Patient encounter procedure Annie Abreu MACHINE [employer] HEL[employer] Work Phone: Hematology/Oncology Start: 06-16-2023 End: 06-16-2023 Patient entered into trial Annie Abreu APRN.[employer] Work Phone: [facility] Start: 06-16-2023 Non-patient / Non-visit Count Includes [facility] Physician [facility] Work Phone: Start: 05-31-2023 End: 05-31-2023 ambulatory [facility] Work Phone: Start: 05-31-2023 End: 05-31-2023 Patient encounter procedure Count Includes [facility] Physician [facility] Work Phone: Start: 05-19-2023 End: 05-19-2023 ambulatory Annie Abreu MACHINE [employer] HEL[employer] Work Phone: Hematology/Oncology Comment on above: Polycythemia [...] End: 05-19-2023 Patient encounter procedure Annie Abreu APRN.[employer] Work Phone: [facility] Start: 05-19-2023 End: 05-19-2023 Patient entered into trial Annie Abreu APRN.[employer] Work Phone: [facility] Work Phone: Start: 05-19-2023 Non-patient / Non-visit [facility] Work Phone: Start: 05-19-2023 [...] Start: 03-24-2023 End: 03-24-2023 ambulatory Annie Abreu APRN.[employer] Work Phone: Hematology/Oncology Comment on above: Polycythemia vera (H CC) (Primary Dx); Research study patient; Bilateral cold feet Start: 03-24-2023 End: 03-24-2023 Nursing evaluation of patient and report Hannah Lyons RN Work Phone: Hematology/Oncology Comment on above: Polycythemia vera (H CC) (Primary Dx) Start: 03-24-2023 End: 03-24-2023 Patient encounter procedure Annie Abreu APRN.[employer] Work Phone: [facility] Start: 03-24-2023 End: 03-24-2023 Patient entered into trial Annie Lois MACHINE [employer] HELPER.[employer] Work Phone: [facility] Work Phone: Start: 03-22-2023 Telephone encounter Anaid Mabry RN Hematology/Oncology Comment on above: Appointment Reschedu led Start: 01-27-2023 End: 01-27-2023 ambulatory Annie Abreu MACHINE [employer] HELPER.[employer] Work Phone: Hematology/Oncology Comment on above: Polycythemia vera (H CC) (Primary Dx); Research study patient Start: 01-27-2023 End: 01-27-2023 Patient encounter procedure Annie Abreu MACHINE [employer] HELPER.[employer] Work Phone: [facility] Start: 01-27-2023 End: 01-27-2023 Patient entered into trial Annie Abreu MACHINE [employer] HELPER.[employer] Work Phone: [facility] Work Phone: Start: 12-03-2022 End: 12-03-2022 ambulatory Tigre Merida Other [employer] Other Start: 12-03-2022 Office outpatient vi sit 15 minutes Tigre Merida [facility] Start: 12-03-2022 Telephone encounter Tigre COLLINS Count Includes [facility] Start: 12-02-2022 End: 12-02-2022 Subsequent hospital visit by physician Pattie Saavedra Ca Work Phone: Radiology Comment on above: PV (polycythemia torrey a) (HCC) [D45] Start: 12-02-2022 End: 12-02-2022 Nursing evaluation of patient and report Hannah Lyons RN Work Phone: Hematology/Oncology Comment on above: Polycythemia vera (H CC) (Primary Dx) Start: 10-08-2022 End: 10-08-2022 ambulatory Tigre Merida Other [employer] Other Start: 10-08-2022 Telephone encounter Tigre CLOLINS Count Includes [facility] Start: 10-07-2022 End: 10-07-2022 ambulatory Sheryl Virgen PA-C Work Phone: Hematology/Oncology Comment on above: Polycythemia vera (H CC) (Primary Dx) Start: 10-07-2022 End: 10-07-2022 Nursing evaluation of patient and report Hannah Lyons RN Work Phone: Hematology/Oncology Comment on above: Polycythemia vera (H CC) (Primary Dx) Start: 10-07-2022 End: 10-07-2022 Patient encounter procedure Sheryl Virgen PA-C Work Phone: [facility] Start: 10-06-2022 End: 10-06-2022 ambulatory Tigre Merida Other [employer] Other Start: 10-06-2022 Encounter for genera l adult medical examination without abnormal findings [facility] Start: 10-06-2022 Periodic preventive med est patient 40-64yrs [facility] Start: 09-10-2022 Telephone encounter Hannah Lyons RN Work Phone: Hematology/Oncology Comment on above: Appointment Start: 08-25-2022 Orders Only Bryce Ventura MD Work Phone: Hematology/Oncology Comment on above: Polycythemia vera (H CC) (Primary Dx) Start: 08-13-2022 End: 08-13-2022 ambulatory Annie Abreu APRN.[employer] Work Phone: Hematology/Oncology Comment on above: Polycythemia vera (H CC) (Primary Dx); Research study patient; Dizziness Start: 08-13-2022 End: 08-13-2022 Nursing evaluation of patient and report Kyleigh Rust RN Hematology/Oncology Comment on above: Polycythemia vera (H CC) (Primary Dx) Start: 08-13-2022 End: 08-13-2022 Patient encounter procedure Annie Abreu APRN.[employer] Work Phone: [facility] Start: 08-13-2022 End: 08-13-2022 Patient entered into trial Annie Abreu APRN.[employer] Work Phone: Hematology/Oncology Start: 08-09-2022 Telephone encounter Kyleigh Strong i b2b sales executive/Oncology Comment on above: Returning Patient's Call Start: 06-18-2022 Orders Only Bryce Ventura MD Work Phone: Hematology/Oncology Comment on above: Polycythemia vera (H CC) (Primary Dx) Start: 06-17-2022 End: 06-17-2022 Orders Only Tad Davis MD Work Phone: Hematology/Oncology Comment on above: Polycythemia vera (H CC) (Primary Dx) Start: 06-04-2022 End: 06-04-2022 ambulatory Tigre Merida Other [employer] Other Start: 06-04-2022 Nursing evaluation o f patient and report Tigre Merida [facility] Start: 04-23-2022 Orders Only Meghan AVELARN.[employer] Work Phone: Hematology/Oncology Comment on above: Polycythemia vera (H CC) (Primary Dx) Start: 04-22-2022 End: 04-22-2022 Nursing evaluation of patient and report Hannah Lyons RN Work Phone: Hematology/Oncology Comment on above: Polycythemia vera (H CC) (Primary Dx) Start: 04-22-2022 End: 04-22-2022 Subsequent hospital visit by physician Pattie Main [...] Start: 01-28-2022 End: 01-28-2022 ambulatory Meghan Graves MACHINE [employer] HELPER.[employer] Work Phone: Hematology/Oncology Comment on above: Polycythemia vera (H CC) (Primary Dx) Start: 01-28-2022 End: 01-28-2022 Patient encounter procedure Meghan William Graves MACHINE [employer] HELPER.[employer] Work Phone: [facility] Start: 12-31-2021 End: 12-31-2021 ambulatory Meghan L Graves MACHINE [employer] HELPER.[employer] Work Phone: Hematology/Oncology Comment on above: Polycythemia vera (H CC) (Primary Dx) Start: 12-31-2021 End: 12-31-2021 Patient encounter procedure Meghan L Graves MACHINE [employer] HELPER.[employer] Work Phone: [facility] Start: 12-28-2021 Orders Only Meghan L Graves A PRN.[employer] Work Phone: Hematology/Oncology Comment on above: Polycythemia vera (H CC) (Primary Dx) Start: 12-03-2021 End: 12-03-2021 Nursing evaluation of patient and report Hannah Lyons RN Work Phone: Hematology/Oncology Comment on above: Polycythemia vera (H CC) (Primary Dx) Start: 12-02-2021 Orders Only Meghan L Graves A PRN.[employer] Work Phone: Hematology/Oncology Comment on above: Polycythemia vera (H CC) (Primary Dx) Start: 11-05-2021 End: 11-05-2021 ambulatory Meghan L Graves MACHINE [employer] HELPER.[employer] Work Phone: Hematology/Oncology Comment on above: Polycythemia vera (H CC) (Primary Dx) Start: 11-05-2021 End: 11-05-2021 Patient encounter procedure Meghan Graves APRN.[employer] Work Phone: [facility] Start: 10-15-2021 Orders Only Meghan (Rn) Star RN Venkat tology/Oncology Comment on above: Polycythemia vera (H CC) (Primary Dx) Start: 10-08-2021 End: 10-08-2021 ambulatory Elizabeth Dunn APRN.[employer] Work Phone: Hematology/Oncology Comment on above: Polycythemia vera (H CC) (Primary Dx) Start: 10-08-2021 End: 10-08-2021 Nursing evaluation of patient and report Hannah Lyons RN Work Phone: Hematology/Oncology Comment on above: Polycythemia vera (H CC) (Primary Dx) Start: 10-08-2021 End: 10-08-2021 Patient encounter procedure Elizabeth Dunn APRN.[employer] Work Phone: [facility] Start: 09-21-2021 Orders Only Bryce Ventura MD Work Phone: Hematology/Oncology Comment on above: 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) Start: 09-17-2021 Encounter for genera l adult medical examination without abnormal findings DR TIGRE MERIDA [facility] Start: 09-11-2021 End: 09-12-[address] [...] encounter procedure Bryce Ventura MD Work Phone: [facility] Start: 09-10-2021 End: 09-10-2021 Subsequent hospital visit by physician Pattie Saavedra Ca Work Phone: Radiology Comment on above: Splenomegaly, not el sewhere classified [R16.1] Start: 09-01-2021 Telephone encounter Hannah Lyons RN Work Phone: Hematology/Oncology Comment on above: Patient Question; Re search (PTG [id number]) Start: 08-11-2021 End: 08-11-2021 ambulatory Elizabeth Dunn APRN.[employer] Work Phone: Hematology/Oncology Comment on above: Polycythemia vera (H CC) (Primary Dx) Start: 08-11-2021 End: 08-11-2021 Nursing evaluation of patient and report Hannah Lyons RN Work Phone: Hematology/Oncology Comment on above: Polycythemia vera (H CC) (Primary Dx) Start: 08-11-2021 End: 08-11-2021 Patient encounter procedure Elizabeth Dunn APRN.[employer] Work Phone: [facility] Start: 07-27-2021 Orders Only Elizabeth MORTON RN.[employer] Work Phone: Hematology/Oncology Comment on above: Polycythemia [...] encounter procedure Bryce Ventura MD Work Phone: [facility] Start: 06-18-2021 End: 06-18-2021 Nursing evaluation of patient and report Hannah Lyons RN Work Phone: Hematology/Oncology Comment on above: Polycythemia vera (H CC) (Primary Dx) Start: 05-21-2021 End: 05-21-2021 ambulatory Meghan Graves MACHINE [employer] HELPER.[employer] Work Phone: Hematology/Oncology Comment on above: Polycythemia vera (H CC) (Primary Dx) Start: 05-21-2021 End: 05-21-2021 Nursing evaluation of patient and report Hannah Lyons RN Work Phone: Hematology/Oncology Comment on above: Polycythemia vera (H CC) (Primary Dx) Start: 05-21-2021 End: 05-21-2021 Patient encounter procedure Meghan Graves MACHINE [employer] HELPER.[employer] Work Phone: [facility] Start: 2021 End: 06-05-2021 Patient encounter procedure Juan L Tiffany [facility] Start: 11-09-[address] TIGRE MERIDA Facili ty:[facility]1 Start: 10-15-2020 End: 10-15-2020 Chart abstracting Robert Cummings MD Work Phone: Hematology/Oncology Start: 10-01-2020 End: 10-02-[address] TIGRE MERIDA Facility:[facility] Start: 09-29-2020 End: 09-30-[address] TIGRE MERIDA Facility:[facility] Procedures Date Procedure Procedure Detail Performing Clinician Start: 05-19-2023 Ct abdomen w/o contr ast material Annie Abreu MACHINE [employer] HELPER.[employer] Work Phone: Start: 12-02-2022 Ct abdomen w/o contr ast material Bryce Ventura MD Work Phone: Start: 10-07-2022 Lipid 1996 panel - S gwendolyn or Plasma Hannah Lyons RN Work Phone: Start: 04-22-2022 Ct abdomen w/o contr ast material Meghan Graves MACHINE [employer] HELPER.[employer] Work Phone: Start: 09-11-[address] TONY MERIDA Comment on above: Performed By: #### P SASC #### [facility] [address] [place] [id number] Roxanne Paulino Start: 09-10-2021 Ct abdomen w/o contr ast material Elizabeth Shaun MACHINE [employer] HELPER.[employer] Work Phone: Start: 07-14-2021 Adult depression screening assessment Bryce Ventura MD Work Phone: Start: 02-12-2021 Adult depression screening assessment Meghan Graves APRN.[employer] Work Phone: Start: 09-29-[address] TONY MERIDA Comment on above: Performed By: #### P SASC #### [facility] [address] [place] [address] Lou Brady Plan of Treatment Date Care Activity Detail Author Start: 2039 RSV Vaccine (1 - 1-d ose 75+ series) RSV Vaccine (1 - 1-dose 75+ series) [facility] Start: 10-08-2027 Lipid 1996 panel - S gwendolyn or Plasma Lipid Screening [facility] Start: 10-08-2027 Lipid panel Lipid Screening [facility] Start: 10-08-2027 LIPID SCREEN LIPID SCREEN [facility] Start: 10-08-2027 PROSTATE CANCER SCREENING DISCUSSION PROSTATE CANCER SCREENING DISCUSSION [facility] Start: 10-08-2027 Prostate specific antigen measurement Prostate Cancer Screening Discussion [facility] Start: 10-05-2027 Diabetes Screening Diabetes Screenin [facility] Start: 07-13-2027 Diabetes Screening Diabetes Screenin [facility] Start: 04-18-2027 Diabetes Screening Diabetes Screenin [facility] Start: 01-25-2027 Diabetes Screening Diabetes Screenin g [facility] Start: 11-02-2026 Diabetes Screening Diabetes Screenin g [facility] Start: 09-11-2026 PROSTATE CANCER SCREENING DISCUSSION PROSTATE CANCER SCREENING DISCUSSION [facility] Start: 08-10-2026 Diabetes Screening Diabetes Screenin g [facility] Start: 07-13-2026 Diabetes Screening Diabetes Screenin g [facility] Start: 06-15-2026 Diabetes Screening Diabetes Screenin g [facility] Start: 05-18-2026 Diabetes Screening Diabetes Screenin g [facility] Start: 03-24-2026 Diabetes Screening Diabetes Screenin g [facility] Start: 01-27-2026 Diabetes Screening Diabetes Screenin g [facility] Start: 12-16-2025 PROSTATE CANCER SCREENING DISCUSSION PROSTATE CANCER SCREENING DISCUSSION [facility] Start: 12-02-2025 Diabetes Screening Diabetes Screenin g [facility] Start: 10-07-2025 DIABETES SCREEN DIABETES SCREEN [facility] Start: 08-13-2025 DIABETES SCREEN DIABETES SCREEN [facility] Start: 06-17-2025 DIABETES SCREEN DIABETES SCREEN [facility] Start: 04-22-2025 DIABETES SCREEN DIABETES SCREEN [facility] Start: 02-25-2025 DIABETES SCREEN DIABETES SCREEN [facility] Start: 01-28-2025 DIABETES SCREEN DIABETES SCREEN [facility] Start: 12-31-2024 DIABETES SCREEN DIABETES SCREEN [facility] Start: 12-27-2024 End: 12-27-2024 Nursing evaluation of patient and report 12/27/2024 10:00 AM EST Nurse Visit Hematology/Oncology [id number] [place] [id number] Anaid Webster, ALEXANDRO Study Pt Hematology/Oncology Comment on above: Study Pt Start: 12-27-2024 End: 12-27-2024 [facility] 1 Draw Station Comment on above: Study Pt Start: 12-03-2024 DIABETES SCREEN DIABETES SCREEN [facility] Start: 11-05-2024 DIABETES SCREEN DIABETES SCREEN [facility] Start: 10-15-2024 Influenza vaccination [facility] Start: 10-08-2024 DIABETES SCREEN DIABETES SCREEN [facility] Start: 10-04-2024 End: 10-04-2024 Nursing evaluation of patient and report Hematology/Oncology Comment on above: Study Pt Start: 10-04-2024 End: 10-04-2024 [facility] 1 Draw Station Comment on above: Study Pt Start: 09-10-2024 DIABETES SCREEN DIABETES SCREEN [facility] Start: 08-11-2024 DIABETES SCREEN DIABETES SCREEN [facility] Start: 07-14-2024 DIABETES SCREEN DIABETES SCREEN [facility] Start: 07-12-2024 End: 07-13-2024 CBC W Auto Differential panel - Blood COMPLETE BLOOD COUNT AND DIFFERENTIAL Lab Routine PV (polycythemia vera) ([facility]) Expected: 07/12/2024, Expires: 07/13/2024 [facility] Work Phone: Comment on above: Expected: 07/12/2024 , Expires: 07/13/2024 Start: 07-12-2024 End: 07-13-2024 Comprehensive metabolic 2000 panel - Serum or Plasma COMPREHENSIVE METABOLIC PANEL Lab Routine PV (polycythemia vera) ([facility]) Expected: 07/12/2024, Expires: 07/13/[address] [facility] Comment on above: Expected: 07/12/2024 , Expires: 07/13/2024 Start: 07-12-2024 End: 07-13-2024 MISC SEND OUT TST 1 MISC SEND OUT TST 1 Lab Routine PV (polycythemia vera) ([facility]) Expected: 07/12/2024, Expires: 07/13/[address] [facility] Comment on above: Expected: 07/12/2024 , Expires: 07/13/2024 Start: 07-12-2024 End: 07-12-2024 Nursing evaluation of patient and report 07/12/2024 10:00 AM EDT Nurse Visit Hematology/Oncology [address] [place] [address] Hannah Lyons RN [address] [place] [id number] Study Pt Hematology/Oncology Comment on above: Study Pt Start: 07-12-2024 End: 07-12-2024 [facility] 1 Draw Station Comment on above: Study Pt Start: 06-18-2024 DIABETES SCREEN DIABETES SCREEN [facility] Start: 05-21-2024 DIABETES SCREEN DIABETES SCREEN [facility] Start: 04-19-2024 End: 04-19-2024 Nursing evaluation of patient and report 04/19/2024 2:00 PM EST Nurse Visit Hematology/Oncology [address] [place] [address] Hannah Lyons, ALEXANDRO [address] [place] [address] Study Pt Hematology/Oncology Comment on above: Study Pt Start: 04-19-2024 End: 04-19-2024 ambulatory Main [place] 1 Draw Station Comment on above: study pt Start: 2024 RSV Vaccine (1 - Ris k 60-74 years 1-dose series) RSV Vaccine (1 - Risk 60-74 years 1-dose series) [facility] Start: 01-26-2024 End: 01-26-2024 Nursing evaluation of patient and report 01/26/2024 11:00 AM EST Nurse Visit Hematology/Oncology [address] [place] [address] Hannah Lyons RN [address] [place] [id number] Study Pt Hematology/Oncology Comment on above: Study Pt Start: 01-26-2024 End: 01-26-2024 ambulatory [facility] 1 Draw Station Comment on above: Study Pt Start: 11-03-2023 End: 11-03-2023 Nursing evaluation of patient and report 11/03/2023 11:00 AM EDT Nurse Visit Hematology/Oncology [address] [place] [address] Hannah Lyons RN [address] [place] [id number] Study Pt Hematology/Oncology Comment on above: Study Pt Start: 11-03-2023 End: 11-03-2023 ambulatory Main [facility] 1 Draw Station Comment on above: Study Pt Start: 10-16-2023 Covid-19 Vaccine ( season) Covid-19 Vaccine ( season) [facility] Start: 10-16-2023 Covid-19 Vaccine ( season) Covid-19 Vaccine ( season) [facility] Start: 10-16-2023 Influenza vaccination Influenza Vacc ine (#1) [facility] Start: 08-11-2023 End: 08-11-2023 Nursing evaluation of patient and report 08/11/2023 11:00 AM EDT Nurse Visit Hematology/Oncology [address] [place] [address] Hannah Lyons, ALEXANDRO [address] [place] [address], [place] [address] Study Pt Hematology/Oncology Comment on above: Study Pt Start: 08-11-2023 End: 08-11-2023 ambulatory [facility] 1 Draw Station Comment on above: Study Pt Start: 07-14-2023 End: 07-14-2023 Nursing evaluation of patient and report 07/14/2023 9:30 AM EDT Nurse Visit Hematology/Oncology [address] [place] [address] Hannah Lyons RN [address] [place] [address] STUDY PT Hematology/Oncology Comment on above: STUDY PT Start: 07-14-2023 End: 07-14-2023 ambulatory [facility] 1 Draw Station Comment on above: STUDY PT Start: 05-19-2023 End: 05-20-2023 MISC SEND OUT TST 1 MISC SEND OUT TST 1 Lab Routine Polycythemia rubra vera (HCC) Expected: 05/19/2023, Expires: 05/20/2023 [facility] Work Phone: Comment on above: Expected: 05/19/2023 , Expires: 05/20/2023 Start: 02-14-2023 Behavioral Health Screening Behavioral Health Screening [facility] Start: 02-14-2023 Depression Assessment Depression Ass essment [facility] Start: 10-15-2022 Covid-19 Vaccine ( season) Covid-19 Vaccine () [facility] Start: 10-15-2022 Influenza vaccination [facility] Start: 10-07-2022 End: 10-08-2022 CBC W Auto Differential panel - Blood CBC + DIFF Lab STAT Polycythemia vera (HCC) Expected: 10/07/2022, Expires: 10/08/2022 [facility] Work Phone: Comment on above: Expected: 10/07/2022 , Expires: 10/08/2022 Start: 10-07-2022 End: 10-08-2022 CLINICAL TRIAL DRAW CLINICAL TRIAL DRAW Lab STAT Polycythemia vera (HCC) Expected: 10/07/2022, Expires: 10/08/2022 [facility] Work Phone: Comment on above: Expected: 10/07/2022 , Expires: 10/08/2022 Start: 10-07-2022 End: 10-08-2022 Comprehensive metabolic 2000 panel - Serum or Plasma COMP METABOLIC PANEL Lab STAT Polycythemia vera (HCC) Expected: 10/07/2022, Expires: 10/08/2022 [facility] Work Phone: Comment on above: Expected: 10/07/2022 , Expires: 10/08/2022 Start: 09-09-2022 End: 11-09-2022 CBC W Auto Differential panel - Blood CBC + DIFF Lab STAT Polycythemia vera (HCC) Expected: 09/09/2022 (Approximate), Expires: 11/09/2022 [facility] Work Phone: Comment on above: Expected: 09/09/2022 (Approximate), Expires: 11/09/2022 Start: 07-14-2022 Adult depression screening assessment DEPRESSION SCREENING [facility] Start: 05-20-2022 End: 07-20-2022 CBC W Auto Differential panel - Blood CBC + DIFF Lab STAT Polycythemia vera (HCC) Expected: 05/20/2022 (Approximate), Expires: 07/20/2022 [facility] Work Phone: Comment on above: Expected: 05/20/2022 (Approximate), Expires: 07/20/2022 Start: 04-22-2022 End: 04-23-2022 CBC W Auto Differential panel - Blood CBC + DIFF Lab STAT Polycythemia vera (HCC) Expected: 04/22/2022, Expires: 04/23/2022 [facility] Work Phone: Comment on above: Expected: 04/22/2022 , Expires: 04/23/2022 Start: 04-22-2022 End: 04-23-2022 CLINICAL TRIAL DRAW CLINICAL TRIAL DRAW Lab STAT Polycythemia vera (HCC) Expected: 04/22/2022, Expires: 04/23/2022 [facility] Work Phone: Comment on above: Expected: 04/22/2022 , Expires: 04/23/2022 Start: 04-22-2022 End: 04-23-2022 Comprehensive metabolic 2000 panel - Serum or Plasma COMP METABOLIC PANEL Lab STAT Polycythemia vera (HCC) Expected: 04/22/2022, Expires: 04/23/2022 [facility] Work Phone: Comment on above: Expected: 04/22/2022 , Expires: 04/23/2022 Start: 02-14-2022 DEPRESSION ASSESSMENT DEPRESSION ASS ESSMENT [facility] Start: 02-12-2022 Adult depression screening assessment DEPRESSION SCREENING [facility] Start: 01-28-2022 End: 01-29-2022 CBC W Auto Differential panel - Blood CBC + DIFF Lab STAT Polycythemia vera (HCC) Expected: 01/28/2022, Expires: 01/29/2022 [facility] Work Phone: Comment on above: Expected: 01/28/2022 , Expires: 01/29/2022 Start: 01-28-2022 End: 01-29-2022 CLINICAL TRIAL DRAW CLINICAL TRIAL DRAW Lab STAT Polycythemia vera (HCC) Expected: 01/28/2022, Expires: 01/29/2022 [facility] Work Phone: Comment on above: Expected: 01/28/2022 , Expires: 01/29/2022 Start: 01-28-2022 End: 01-29-2022 Comprehensive metabolic 2000 panel - Serum or Plasma COMP METABOLIC PANEL Lab STAT Polycythemia vera (HCC) Expected: 01/28/2022, Expires: 01/29/2022 [facility] Work Phone: Comment on above: Expected: 01/28/2022 , Expires: 01/29/2022 Start: 01-28-2022 End: 03-30-2022 Magnesium [Mass/volume] in Serum or Plasma MAGNESIUM BLD Lab Routine Polycythemia vera (HCC) Expected: 01/28/2022, Expires: 03/30/2022 [facility] Work Phone: Comment on above: Expected: 01/28/2022 , Expires: 03/30/2022 Start: 12-31-2021 End: 01-01-2022 CBC W Auto Differential panel - Blood CBC + DIFF Lab STAT Polycythemia vera (HCC) Expected: 12/31/2021, Expires: 01/01/2022 [facility] Work Phone: Comment on above: Expected: 12/31/2021 , Expires: 01/01/2022 Start: 12-31-2021 End: 01-01-2022 CLINICAL TRIAL DRAW CLINICAL TRIAL DRAW Lab STAT Polycythemia vera (HCC) Expected: 12/31/2021, Expires: 01/01/2022 [facility] Work Phone: Comment on above: Expected: 12/31/2021 , Expires: 01/01/2022 Start: 12-31-2021 End: 01-01-2022 Comprehensive metabolic 2000 panel - Serum or Plasma COMP METABOLIC PANEL Lab STAT Polycythemia vera (HCC) Expected: 12/31/2021, Expires: 01/01/2022 [facility] Work Phone: Comment on above: Expected: 12/31/2021 , Expires: 01/01/2022 Start: 11-05-2021 End: 11-06-2021 CBC W Auto Differential panel - Blood CBC + DIFF Lab STAT Polycythemia vera (HCC) Expected: 11/05/2021, Expires: 11/06/2021 [facility] Work Phone: Comment on above: Expected: 11/05/2021 , Expires: 11/06/2021 Start: 11-05-2021 End: 11-06-2021 CLINICAL TRIAL DRAW CLINICAL TRIAL DRAW Lab STAT Polycythemia vera (HCC) Expected: 11/05/2021, Expires: 11/06/2021 [facility] Work Phone: Comment on above: Expected: 11/05/2021 , Expires: 11/06/2021 Start: 11-05-2021 End: 11-06-2021 Comprehensive metabolic 2000 panel - Serum or Plasma COMP METABOLIC PANEL Lab STAT Polycythemia vera (HCC) Expected: 11/05/2021, Expires: 11/06/2021 [facility] Work Phone: Comment on above: Expected: 11/05/2021 , Expires: 11/06/2021 Start: 10-15-2021 Influenza vaccination INFLUENZA (#1) [facility] Start: 10-08-2021 End: 10-09-2021 CBC W Auto Differential panel - Blood [facility] Work Phone: Comment on above: Expected: 10/08/2021 , Expires: 10/09/2021 Start: 10-08-2021 End: 10-09-2021 CLINICAL TRIAL DRAW [facility] Work Phone: Comment on above: Expected: 10/08/2021 , Expires: 10/09/2021 Start: 10-08-2021 End: 10-09-2021 Comprehensive metabolic 2000 panel - Serum or Plasma [facility] Work Phone: Comment on above: Expected: 10/08/2021 , Expires: 10/09/2021 Start: 05-29-2021 COVID-19 VACCINE (4 - Booster for Pfizer series) COVID-19 VACCINE (4 - Booster for Pfizer series) [facility] Start: 03-25-2021 COVID-19 VACCINE (4 - Booster for Pfizer series) COVID-19 VACCINE (4 - Booster for Pfizer series) [facility] Start: 03-25-2021 COVID-19 VACCINE (4 - Pfizer series) COVID-19 VACCINE (4 - Pfizer series) [facility] Start: 02-14-2021 DEPRESSION ASSESSMENT DEPRESSION ASS ESSMENT [facility] Start: 10-15-2020 Influenza vaccination INFLUENZA (#1) [facility] Start: 2019 PROSTATE CANCER SCREENING DISCUSSION PROSTATE CANCER SCREENING DISCUSSION [facility] Start: 2014 Screening for malign ant neoplasm of colon [facility] Start: 2014 SHINGRIX VACCINE (1 of 2) SHINGRIX VACCINE (1 of 2) [facility] Start: 2009 COLOGUARD (FIT-DNA) COLOGUARD (FIT-D NA) [facility] Start: 2009 Colonoscopy COLONOSCOPY [facility] Start: 2009 COLORECTAL CANCER SCREENING COLORECTAL CANCER SCREENING [facility] Start: [address] COLONOGRAPHY [facility] Start: 2009 DIABETES SCREEN DIABETES SCREEN [facility] Start: 2009 FECAL OCCULT BLOOD FECAL OCCULT BLOO D [facility] Start: 2009 Screening for malign ant neoplasm of colon [facility] Start: 2009 SIGMOIDOSCOPY SIGMOIDOSCOPY [facility] Start: 1999 LIPID SCREEN LIPID SCREEN [facility] Start: 1983 Pneumococcal Vaccine : 50+ (1 of 2 - PCV) Pneumococcal Vaccine: 50+ (1 of 2 - PCV) [facility] Start: 1983 SHINGRIX VACCINE (1 of 2) SHINGRIX VACCINE (1 of 2) [facility] Start: 1983 Urine microalbumin profile [facility] Start: 1982 Anxiety Screening Anxiety Screening [facility] Start: 1982 Depression Screening Depression Scre ening [facility] Start: 1982 HEPATITIS C SCREENING HEPATITIS C SC REENING [facility] Start: 1982 HIV SCREENING HIV SCREENING [facility] Start: 1982 HIV screening HIV Screening [facility] Start: 1976 Adult depression screening assessment DEPRESSION SCREENING [facility] Start: 1976 COVID-19 VACCINE (1) COVID-19 VACCIN E (1) [facility] Start: 1970 PNEUMOCOCCAL (1 - PCV) PNEUMOCOCCAL (1 - PCV) [facility] Start: 1970 Pneumococcal vaccination [facility] Start: 1964 HEPATITIS B (1 of 3 - 3-dose series) HEPATITIS B (1 of 3 - 3-dose series) [facility] Start: 1964 Hepatitis B Vaccine (1 of 3 - 3-dose series) Hepatitis B Vaccine (1 of 3 - 3-dose series) [facility] Comprehensive metabo lic 2000 panel - Serum or Plasma [facility] End: 03-24-2023 Ct abdomen w/o contrast material CT ABDOMEN WO IVCON Radiology Routine Splenomegaly, not elsewhere classified 1 Occurrences starting 02/22/2022 until 03/24/2023 [facility] Work Phone: Comment on above: 1 Occurrences starti ng 02/22/2022 until 03/24/2023 [facility]R [facility] Immunizations Immunization Date Immunization Notes Care Provider Fa cility 02-18-2023 influenza virus vaccine, unspecified formulation Carmita Hernández MD Work Phone: [facility] 02-03-2022 influenza virus vaccine, split virus (incl. purified surface antigen) Tigre eMrida Other [employer] Other 02-03-2022 influenza virus vaccine, unspecified formulation Hannah Lyons RN Work Phone: [facility] 01-28-2021 COVID-19 vaccine (UNSPECIFIED) Meghan Graves APRN.[employer] Work Phone: [facility] 01-23-2021 influenza, injectabl e, quadrivalent, preservative free Meghan Graves APRN.[employer] Work Phone: [facility] 05-23-2020 COVID-19 vaccine, ag e 12+ yr (PFIZER-BIONTECH - PURPLE TOP) Meghan Graves APRN.[employer] Work Phone: [facility] 05-02-2020 COVID-19 vaccine, ag e 12+ yr (PFIZER-BIONTECH - PURPLE TOP) Meghan Graves APRN.[employer] Work Phone: [facility] 12-24-2019 influenza virus vaccine, split virus (incl. purified surface antigen) Tigre Merida Other [employer] Other 12-24-2019 influenza virus vaccine, unspecified formulation [facility] Payers Date Payer Category Payer Unknown [id number] 2024 Unknown [id number] 2023 Private Health Insurance [id number] 2023 Private Health Insurance [id number] 2021 Unknown [employer] PPO [id number] 2021-Present [phone] [address] [place] [address] PPO [id number] 2021 Unknown [id number] [id number]-Present O [id number] 1964 Unknown [id number] 3 1964 Unknown [id number] 3 1964 Unknown [id number] 3 1964 Unknown [id number] 3 1964 Unknown [id number] 7 1964 Unknown [id number] 7 1964 Unknown [id number] 7 1959 Self-pay 1959 Unknown [id number] 1959 Unknown [id number] Social History Date Type Detail Facility Start: 10-15-2020 End: 07-19-2023 Tobacco smoking status NHIS Unknown if ever smoked [facility] Start: 1965 Sex Assigned At Not on file [facility] Start: 05-11-2021 End: 12-31-2021 Exposure to SARS-CoV-2 (event) Not sure [facility] Start: 10-16-2020 Tobacco smoking stat us NHIS Never smoked tobacco [facility] Start: 10-16-2020 Tobacco use and exposure Smokeless tobacco non-user [facility] Start: 04-16-2021 End: 10-04-2024 Alcohol intake Current drinker of alcohol (finding) [facility] Start: 11-05-2021 End: 06-17-2022 Sex Assigned At Male [place] [facility] Start: 11-05-2021 End: 06-17-2022 History of Social function [facility] Start: 2019 National Score (1-100), lower number is lower risk [address] [facility] Start: 1965 Sex Assigned At Male [facility] Start: 05-18-2024 End: 07-13-2024 Sex Male (finding) [facility] Clinical Notes 05-21-2021 to 10-04-2024 Annie Abreu, JACKELYN.[employer] - 10/04/2024 2:00 PM Jose Angel Owens LPN - 10/04/2024 1:38 PM Anaid Mejia RN - 10/04/2024 2:00 PM Charlotte Swanson RN - 07/12/2024 10:00 AM EDT Note Date & Type Note Facility 10-04-2024 History of Presen t illness Narrative Elements have been copied from prior note on 07/12/2024 - The elements have been reviewed and updated where appropriate, and all reflect my current assessment and decision-making from today, 10/04/2024. [facility] Clinical Note Assessment and Plan In [...] notable for NSR w/ QTcB 450ms. Today (10/04/2024) is week 72 visit of PTG 1923. He continues on 45 mg weekly dosing and is tolerating it well. Hct remains < 45% - has not needed a phlebotomy since February 2021. No injection reactions. Labs remain stable overall although Hgb appears to be trending downward and although Hct is stable, it is now on the lower end (38.7) - No contraindication to continuing investigational Rusfertide today but may consider dose modification in the future should levels continue to downtrend. All of Mr. Leos's questions and those of his were acknowledged and answered to their satisfaction. Welcomed them to please call with any questions or concerns. I spent a total of 24 minutes on the date of the service which included preparing to see the patient, [id number] patient care, completing clinical documentation, obtaining and/or reviewing separately obtained history, performing a medically appropriate examination, counseling and educating the patient/family/caregiver, ordering medications, tests, or procedures, communicating with other HCPs (not separately reported), independently interpreting results (not separately reported), communicating results to the patient/family/caregiver, and care coordination (not separately reported). Annie Abreu APRN.[employer] CC: Tigre Merida DO Patient Care Team: Tigre Merida DO as PCP - General (Internal Medicine) Bryce Ventura MD as Physician (Hematology/Oncology) Anaid Webster RN as Research Nurse Visit Details Past Medical History Mr. Leos presents today, accompanied by his , for planned study follow-up. He reports feeling well overall and denies any new complaints or concerns, nor any changes to his MPN-related symptoms. He notes that he feels fatigued at times and is sleeping more at night but admits that he's not sure if this is due to getting older, his activities, or due to his PV. He still has tough skin which necessitates using more strength to give himself the injections; however, he no longer has injection reactions like he once did. He denies fevers, chills, headaches, chest pain, palpitations, shortness of breath, nausea, vomiting, changes in bowel or bladder habits, swelling, rashes, or bleeding. He is eating and drinking well. Remains active and independent with his ADLs. An inventory of his PV-related symptoms are [...] 0 Enrique WILLINGHAM et alJ Clin Oncol 2012;30:8346-8175. Review of Systems Completed and negative aside [...] by mouth once daily. Exam Vital Signs 10/04/24 1338 BP: 130/65 Pulse: 78 Resp: 15 Temp: 36.3 C (97.4 F) TempSrc: Temporal SpO2: 98% Weight: 84 kg (185 lb 3 oz) Performance Status Karnofsky Scale:100 - Normal, [...] Labs and Imaging Reviewed and in Epic. Additional intake questions: Has the patient had fever, nausea, vomiting, diarrhea, constipation, fatigue for > 1 week? No Does the patient have a decreased appetite? No Does patient want to see a Ground Crew Supervisor? No (yes to any of above refer patient to schedulers for dietitian appointment) ) Does patient have any new or increased numbness or tingling of extremities? No Is patient interested in fertility information? No Does patient need any prescription refills? No Does patient have an advanced directive in place? No, Patient refused referral to Social Work or Resource Center Electronically Signed By: Jose Angel Leonardo LPN documented in this encounter [facility] 10-04-2024 History of Presen t illness Narrative Summary: PTG 1922 Week 72 Title:An Extension Study to Evaluate the Long-term Safety of Rusfertide (PTG-300) in Subjects with Polycythemia Vera Patient signed Informed Consent on 05/19/2023, prior to any study related procedures. Screening date: 05/19/2023 Subject#: [id number] PTG 1Z21: Week 1 02/26/2021. EOT 05/19/2023. Rolled over to PT 1923 on 05/19/2023. Week 0: 05/19/2023 PTG-300 45 mg SC weekly Week 4: 06/16/2023 Maintain dosing Week 8+: 07/14/2023 Maintain dosing Patient is a Male with PV. Patient is willing and able to comply with the protocol for the duration of the study including undergoing treatment and scheduled visits and examinations. Patient is here today for Week 72 VISIT for the PTG 1923 Trial, IRB# [id number]. Pt here with his . No new complaints or signs/symptoms with study medication. Pt denies any symptoms or concerns with injection sites. Pt states he no longer experiences redness or swelling at the injection sites. Pt to maintain dosing at 45 mg SC weekly of PTG-300. Concomitant medications reviewed per protocol: Yes Changes per patient: No Quality of life questionnaire completed per protocol: Yes Clinical trial labs completed per protocol: Yes Vitals completed per protocol: Yes PE _+ Dermatologic examination: Sindy Abreu CNP ECO EKG: not required this visit Spleen: 0 cm MPN-SAF (MPN-10) TSS: 10/04/2024 Perameter Score (0 if absent to 10 [...] 0 Enrique WILLINGHAM et alJ Clin Oncol 2012;30:7184-0620. PAST MEDICAL HISTORY Diagnosis Date Status/Active Issues [...] cokes. Denies recreational drug use. 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 RELATED to PTG-300. Start date: 03/13/2021. Resolve date: ongoing. Drugs to treat: none. Outcome: still present Injection site reaction (firmness) Grade 1. RELATED to PTG-300. Start date: 04/23/2021. Resolve date: ongoing with each weekly injection. Drugs to treat: hydrocortisone, ice. Outcome: present intermittently with each injection of PTG-300 and resolves 6-7 days after the injection Fatigue Grade 1. [...] Drugs to treat: none. Outcome: present intermittently Resolved Toxicities: Hypokalemia Grade 1. UNRELATED to PTG-300. Start [...] 06/16/2023. Drugs to treat: none. Outcome: resolved Infections and infestations (COVID-19 infection) Grade 2. UNRELATED. Start date: 02/06/2024. Resolve date: ~02/21/2024. Drugs to treat: Paxlovid. Outcome: resolved Injection site reaction (erythema, swelling) Grade 1. RELATED to PTG-300. Start date: 04/23/2021. Resolve date: 07/12/2024 Drugs to treat: hydrocortisone, ice. Outcome: resolved. Pt no longer experiences erythema, swelling at injection sites. Returned: 12 empty cartons of 45 mg doses of PTG-300. [id number] The count is accurate. Dispensed: The patient was given 12 cartons [...] folder with dosing instructions and study card. 45 mg cartons #s: Kit Number 1 : [id number] Kit Number 2 : [id number] Kit Number 3 : [id number] Kit Number 4 : [id number] Kit Number 5 : [id number] Kit Number 6 : [id number] Kit Number 7 : [id number] Kit Number 8 : [id number] Kit Number 9 : [id number] Kit Number 10 : [id number] Kit Number 11 : [id number] Kit Number 12 : [id number] Dosing: Reviewed mixing and administration directions for [...] Patient aware to RTC in 12 weeks on 12/27/2024 for Week 84 visit of PTG 1923. Patient understands that the nurse or MD [...] or concerns. Patient has contact information for CAROL Boyd, RN, Research Nurse and Dr. Ventura, along with the 24 hour On-Call number for the On-Call Oncology Fellow ([phone]). Patient understands that this participation is voluntary and may withdrawal at any time during the trial. The provider has reviewed and verified the information included within this note, including AE information CAROL Boyd, RN documented in this encounter [facility] 10-04-2024 Note HNO ID: [id number] Author: ANNIE ABREU APRN.[employer] Service: ? Author Type: Nurse Practitioner Type: Progress Notes Filed: 10/04/2024 15:54 Note Text: Elements have been copied from prior note on 07/12/2024 - The elements have been reviewed and updated where appropriate, and all reflect my current assessment and decision-making from today, 10/04/2024. [facility] Clinical Note Assessment and Plan In [...] as patient elected [facility] w/ rusfertide, PTG 1923, which he [...] notable for NSR w/ QTcB 450ms. Today (10/04/2024) is week 72 visit of PTG 1923. He continues on 45 mg weekly dosing and is tolerating it well. Hct remains < 45% - has not needed a phlebotomy since February 2021. No injection reactions. Labs remain stable overall although Hgb appears to be trending downward and although Hct is stable, it is now on the lower end (38.7) - No contraindication to continuing investigational Rusfertide today but may consider dose modification in the future should levels continue to downtrend. All of Mr. Leos's questions and those of his were acknowledged and answered to their satisfaction. Welcomed them to please call with any questions or concerns. I spent a total of 24 minutes on the date of the service which included preparing to see the patient, [id number] patient care, completing clinical documentation, obtaining and/or reviewing separately obtained history, performing a medically appropriate examination, counseling and educating the patient/family/caregiver, ordering medications, tests, or procedures, communicating with other HCPs (not separately reported), independently interpreting results (not separately reported), communicating results to the patient/family/caregiver, and care coordination (not separately reported). Annie Abreu APRN.[employer] CC: Tigre Merida DO Patient Care Team: Tigre Merida DO as PCP - General (Internal Medicine) Bryce Ventura MD as Physician (Hematology/Oncology) Anaid Webster RN as Research Nurse Visit Details Past Medical History Mr. Leos presents today, accompanied by his , for planned study follow-up. He reports feeling well overall and denies any new complaints or concerns, nor any changes to his MPN-related symptoms. He notes that he feels fatigued at times and is sleeping more at night but admits that he's not sure if this is due to getting older, his activities, or due to his PV. He still has tough skin which necessitates using more strength to give himself the injections; however, he no longer has injection reactions like he once did. He denies fevers, chills, headaches, chest pain, palpitations, shortness of breath, nausea, vomiting, changes in bowel or bladder habits, swelling, rashes, or bleeding. He is eating and drinking well. Remains active and independent with his ADLs. An inventory of his PV-related symptoms are [...] 0 Enrique WILLINGHAM et alJ Clin Oncol 2012;30:8734-4073. Review of Systems Completed and negative aside from that noted above in HPI/Interval history. Adjunct Histories PAST MEDICAL HISTORY Diagnosis Date Elevated prostate specific antigen (PSA) Hypertension REYMUNDO (obstructive sleep apnea) Polycythemia Seasonal allergic rhinitis due to pollen PAST SURGICAL HISTORY Procedure Laterality Date ARTHROSCOPY KNEE DIAGNOSTIC W/WO SYNOVIAL BX SPX Right CLAVICLE LEFT COLONOSCOPY 2014 (more content not included)... [facility] 10-04-2024 Note HNO ID: [id number] Author: ANAID WEBSTER RN Service: ? Author Type: Registered Nurse Type: Progress Notes Filed: 10/05/2024 07:42 Note Text: Summary: PTG 1923 Week 72 Title:An Extension Study to Evaluate the Long-term Safety of Rusfertide (PTG-300) in Subjects with Polycythemia Vera Patient signed Informed Consent on 05/19/2023, prior to any study related procedures. Screening date: 05/19/2023 Subject#: [id number] PTG 1Z21: Week 1 02/26/2021. EOT 05/19/2023. Rolled over to PTG 192 on 05/19/2023. Week 0: 05/19/2023 PTG-300 45 mg SC weekly Week 4: 06/16/2023 Maintain dosing Week 8+: 07/14/2023 Maintain dosing Patient is a Male with PV. Patient is willing and able to comply with the protocol for the duration of the study including undergoing treatment and scheduled visits and examinations. Patient is here today for Week 72 VISIT for the PTG 1923 Trial, IRB# [id number]. Pt here with his . No new complaints or signs/symptoms with study medication. Pt denies any symptoms or concerns with injection sites. Pt states he no longer experiences redness or swelling at the injection sites. Pt to maintain dosing at 45 mg SC weekly of PTG-300. Concomitant medications reviewed per protocol: Yes Changes per patient: No Quality of life questionnaire completed per protocol: Yes Clinical trial labs completed per protocol: Yes Vitals completed per protocol: Yes PE _+ Dermatologic examination: Sindy Abreu CNP ECO EKG: not required this visit Spleen: 0 cm MPN-SAF (MPN-10) TSS: 10/04/2024 Perameter Score (0 if absent to 10 [...] 0 Enrique RM et alJ Clin Oncol 2012;30:9094-9992. PAST MEDICAL HISTORY Diagnosis Date Status/Active Issues [...] cokes. Denies recreational drug use. 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 [facility] 10-04-2024 Note HNO ID: [id number] Author: JOSE ANGEL LEONARDO LPN Service: ? Author Type: Licensed Nurse Type: Progress Notes Filed: 10/04/2024 13:39 Note Text: Additional intake questions: Has the patient had fever, nausea, vomiting, diarrhea, constipation, fatigue for > 1 week? No Does the patient have a decreased appetite? No Does patient want to see a Ground Crew Supervisor? No (yes to any of above refer patient to schedulers for dietitian appointment) ) Does patient have any new or increased numbness or tingling of extremities? No Is patient interested in fertility information? No Does patient need any prescription refills? No Does patient have an advanced directive in place? No, Patient refused referral to Social Work or Resource Center Electronically Signed By: Jose Angel Leonardo LPN [facility] 10-02-2024 Telephone encounter Note Left message and requested call back to confirm time of appointment on , 10/04/2024. CAROL Boyd,RN October 02, 2024 12:[address] [facility] 10-02-2024 Miscellaneous Notes Left message and requested call back to confirm time of appointment on , 10/04/2024. CAROL Boyd,ALEXANDRO October 02, 2024 12:41 PM documented in this encounter [facility] 07-12-2024 Note HNO ID: [id number] Author: KAYLIN LOPEZ, Research Coordinator Service: ? Author Type: Research Type: Progress Notes Filed: 07/12/2024 11:57 Note Text: CRC 1 Documentation IRB#: [id number], [facility]# [id number], Study Title: An Extension Study to Evaluate the Long-term Safety of Rusfertide (PTG-300) in Subjects with Polycythemia Vera Informed Consent signed on 05/19/2023, prior to any study related procedures being performed that are not SOC. Pt Study #: [id number] Patient presents for: Week 60 The following research tasks have been completed per protocol: Quality of life questionnaire: Yes Kaylin Lopez, Research Coordinator [facility] 07-12-2024 History of Presen t illness Narrative CRC 1 Documentation IRB#: [id number], [facility]# [id number], Study Title: An Extension Study to Evaluate the Long-term Safety of Rusfertide (PTG-300) in Subjects with Polycythemia Vera Informed Consent signed on 05/19/2023, prior to any study related procedures being performed that are not SOC. Pt Study #: [id number] Patient presents for: Week 60 The following research tasks have been completed per protocol: Quality of life questionnaire: Yes Kaylin Lopez, Research Coordinator documented in this encounter [facility] 07-12-2024 History of Presen t illness Narrative Summary: PT 1922 Week 60 Title:An Extension Study to Evaluate the Long-term Safety of Rusfertide (PTG-300) in Subjects with Polycythemia Vera Patient signed Informed Consent on 05/19/2023, prior to any study related procedures. Screening date: 05/19/2023 Subject#: [id number] PTG 1Z21: Week 1 02/26/2021. EOT 05/19/2023. Rolled over to PTG 192 on 05/19/2023. Week 0: 05/19/2023 PTG-300 45 mg SC weekly Week 4: 06/16/2023 Maintain dosing Week 8+: 07/14/2023 Maintain dosing Patient is a Male with PV. Patient is willing and able to comply with the protocol for the duration of the study including undergoing treatment and scheduled visits and examinations. Male patients must always use a condom during and up to 90 days after the last dose of PTG-300 or rusfertide. Patient is here today for Week 60 VISIT for the PTG 1923 Trial, IRB# [id number]. Pt here with his . No new complaints or signs/symptoms with study medication. Pt denies any symptoms or concerns with injection sites. Pt states he no longer experiences redness or swelling at the injection sites. Pt to maintain dosing at 45 mg SC weekly of PTG-300. Concomitant medications reviewed per protocol: Yes Changes per patient: No Quality of life questionnaire completed per protocol: Yes Clinical trial labs completed per protocol: Yes Vitals completed per protocol: Yes PE: Dr. Ventura ECO Dermatologic examination: completed by Dr. Ventura EKG: not required this visit Spleen: 0 cm MPN-SAF (MPN-10) TSS: 07/12/2024 Perameter Score (0 if absent to 10 [...] 0 Enrique WILLINGHAM et alJ Clin Oncol 2012;30:3743-2474. PAST MEDICAL HISTORY Diagnosis Date Status/Active Issues [...] cokes. Denies recreational drug use. 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 RELATED to PTG-300. Start [...] Drugs to treat: none. Outcome: present intermittently Resolved Toxicities: Hypokalemia Grade 1. UNRELATED to PTG-300. Start [...] 06/16/2023. Drugs to treat: none. Outcome: resolved Infections and infestations (COVID-19 infection) Grade 2. UNRELATED. Start date: 02/06/2024. Resolve date: ~02/21/2024. Drugs to treat: Paxlovid. Outcome: resolved Returned: 12 empty cartons of 45 mg doses of PTG-300. The count is accurate. Dispensed: The patient was given 12 cartons of rusfertide 45 mg each as dispensed by the pharmacy in pt's cooler with ice packs. Pt instructed to return empty cartons at next clinic visit. Dosing instructions were reviewed with the patient. Instructed pt to put empty vials and syringes in the sharps container. Pt to dispose of full sharps containers per his [facility]'s trash disposal guidelines. Pt verbalized understanding. Pt is no longer required to fill out a medication diary for weeks 48+. Pt has the folder with dosing instructions and study card. 45 mg cartons #s: [id number] Dosing: Reviewed mixing and administration directions for [...] Patient aware to RTC in 12 weeks on 10/04/2024 for Week 72 visit of PTG 1923. Patient understands that the nurse or MD [...] or concerns. Patient has contact information for CAROL Boyd, RN, Research Nurse and Dr. Ventura, along with the 24 hour On-Call number for the On-Call Oncology Fellow ([phone]). Patient understands that this participation is voluntary and may withdrawal at any time during the trial. The provider has reviewed and verified the information included within this note, including AE information Charlotte Mejía RN documented in this encounter [facility] 07-12-2024 Note HNO ID: [id number] Author: CHARLOTTE MEJÍA RN Service: ? Author Type: Registered Nurse Type: Progress Notes Filed: 07/12/2024 12:54 Note Text: Summary: PTG 1923 Week 60 Title:An Extension Study to Evaluate the Long-term Safety of Rusfertide (PTG-300) in Subjects with Polycythemia Vera Patient signed Informed Consent on 05/19/2023, prior to any study related procedures. Screening date: 05/19/2023 Subject#: [id number] PT 1Z21: Week 1 02/26/2021. EOT 05/19/2023. Rolled over to PTG 1923 on 05/19/2023. Week 0: 05/19/2023 PTG-300 45 mg SC weekly Week 4: 06/16/2023 Maintain dosing Week 8+: 07/14/2023 Maintain dosing Patient is a Male with PV. Patient is willing and able to comply with the protocol for the duration of the study including undergoing treatment and scheduled visits and examinations. Male patients must always use a condom during and up to 90 days after the last dose of PTG-300 or rusfertide. Patient is here today for Week 60 VISIT for the PTG 1923 Trial, IRB# [id number]. Pt here with his . No new complaints or signs/symptoms with study medication. Pt denies any symptoms or concerns with injection sites. Pt states he no longer experiences redness or swelling at the injection sites. Pt to maintain dosing at 45 mg SC weekly of PTG-300. Concomitant medications reviewed per protocol: Yes Changes per patient: No Quality of life questionnaire completed per protocol: Yes Clinical trial labs completed per protocol: Yes Vitals completed per protocol: Yes PE: Dr. Ventura ECO Dermatologic examination: completed by Dr. Ventura EKG: not required this visit Spleen: 0 cm MPN-SAF (MPN-10) TSS: 07/12/2024 Perameter Score (0 if absent to 10 [...] 0 Enrique WILLINGHAM et alJ Clin Oncol 2012;30:1122-7069. PAST MEDICAL HISTORY Diagnosis Date Status/Active Issues [...] cokes. Denies recreational drug use. 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 [facility] 07-12-2024 Note HNO ID: [id number] Author: PABLO BOB MA Service: ? Author Type: Lay Midwife Type: Progress Notes Filed: 07/12/2024 09:49 Note Text: Additional intake questions: Has the patient had fever, nausea, vomiting, diarrhea, constipation, fatigue for > 1 week? No Does the patient have a decreased appetite? No Does patient want to see a Ground Crew Supervisor? No (yes to any of above refer patient to schedulers for dietitian appointment) ) Does patient have any new or increased numbness or tingling of extremities? No Is patient interested in fertility information? No Does patient need any prescription refills? No Does patient have an advanced directive in place? No, Patient referred to Social Work Electronically Signed By: Pablo Bob MA [facility] 07-12-2024 History of Presen t illness Narrative Additional intake questions: Has the patient had fever, nausea, vomiting, diarrhea, constipation, fatigue for > 1 week? No Does the patient have a decreased appetite? No Does patient want to see a Ground Crew Supervisor? No (yes to any of above refer patient to schedulers for dietitian appointment) ) Does patient have any new or increased numbness or tingling of extremities? No Is patient interested in fertility information? No Does patient need any prescription refills? No Does patient have an advanced directive in place? No, Patient referred to Social Work All documentation from previous visit of 04/17/2024 was copied and pasted, documentation has been reviewed and edited as necessary for today's visit. [facility] Clinical Note Assessment and Plan In [...] w/ QTcB 450ms. Today (04/17/2024) is week 70 visit of PTG 1923. He continues on 45 mg weekly dosing and is tolerating it well. Hct stable - has not needed a phlebotomy since start of study. No injection reactions. Labs remain stable overall - No contraindication to continuing investigational Rusfertide today. Will get EKG today. I spent a total of 40 minutes on the date of the service which included preparing to see the patient, [id number] patient care, completing clinical documentation, obtaining and/or reviewing separately obtained history, performing a medically appropriate examination, counseling and educating the patient/family/caregiver, ordering medications, tests, or procedures, communicating with other HCPs (not separately reported), independently interpreting results (not separately reported), communicating results to the patient/family/caregiver, and care coordination (not separately reported). Bryce Ventura MD CC: Tigre Merida DO Patient Care Team: Ball, Tigre E, DO as PCP - General (Internal Medicine) Bryce Ventura MD as Physician (Hematology/Oncology) Anaid Webster, RN as Research Nurse Visit Details Past Medical History Mr. Leos presents today for follow up with his . He reports feeling well overall and denies any new complaints or concerns, nor any changes to his MPN-related symptoms. Denies any fevers, chills, chest pain, or shortness of breath. Is eating and drinking well. Denies any knee pain today. An inventory of his PV-related symptoms are [...] 0 Enrique RM et alJ Clin Oncol 2012;30:7517-8754. Review of Systems Completed and negative aside [...] ALLERGIES Allergen Reactions Bactrim [Sulfametho* Rash TURMERIC ORAL^Take 500 mg by mouth once daily.^Disp: ^Rfl: magnesium glycinate 100 mg magnesium capsule^Take 2 capsules by mouth once daily. Take 2 capsules by mouth once daily in late afternoon^Disp: 30 capsule^Rfl: 1 (Patient taking differently: Take 200 mg by mouth once daily as needed. Take 2 capsules by mouth once daily in late afternoon) efinaconazole 10 % alfa^Apply 1 application to affected area once daily.^Disp: ^Rfl: ruxolitinib phosphate (OPZELURA TOPICAL)^Apply to affected area.^Disp: ^Rfl: KRILL OIL ORAL^Take by mouth twice daily.^Disp: ^Rfl: multivitamin with minerals (ONE-A-DAY 50 PLUS ORAL)^Take by mouth once daily. ^Disp: ^Rfl: aspirin 81 mg cap^Take by mouth once daily. ^Disp: ^Rfl: Exam Vital Signs BP 129/74 (BP Site: Left Arm, BP Position: Sitting, BP Cuff Size: Regular Adult) Pulse 77 Temp 36.2 C (97.1 F) (Oral) Resp 18 Ht 172.7 cm (5' 8 ) Wt 85.6 kg (188 lb 11.2 oz) SpO2 99% BMI 28.69 kg/m Performance Status Karnofsky Scale:100 - Normal, no [...] and in Epic. documented in this encounter [facility] 07-10-2024 Note HNO ID: [id number] Author: BRYCE VENTURA MD Service: ? Author Type: Physician Type: Progress Notes Filed: 07/12/2024 12:21 Note Text: All documentation from previous visit of 04/17/2024 was copied and pasted, documentation has been reviewed and edited as necessary for today's visit. [facility] Clinical Note Assessment and Plan In [...] w/ QTcB 450ms. Today (04/17/2024) is week 70 visit of PTG 1923. He continues on 45 mg weekly dosing and is tolerating it well. Hct stable - has not needed a phlebotomy since start of study. No injection reactions. Labs remain stable overall - No contraindication to continuing investigational Rusfertide today. Will get EKG today. I spent a total of 40 minutes on the date of the service which included preparing to see the patient, [id number] patient care, completing clinical documentation, obtaining and/or reviewing separately obtained history, performing a medically appropriate examination, counseling and educating the patient/family/caregiver, ordering medications, tests, or procedures, communicating with other HCPs (not separately reported), independently interpreting results (not separately reported), communicating results to the patient/family/caregiver, and care coordination (not separately reported). Bryce Ventura MD CC: Tigre Merida DO Patient Care Team: Tigre Merida DO as PCP - General (Internal Medicine) Bryce Ventura MD as Physician (Hematology/Oncology) Anaid Webster, RN as Research Nurse Visit Details Past Medical History Mr. Leos presents today for follow up with his . He reports feeling well overall and denies any new complaints or concerns, nor any changes to his MPN-related symptoms. Denies any fevers, chills, chest pain, or shortness of breath. Is eating and drinking well. Denies any knee pain today. An inventory of his PV-related symptoms are [...] 0 Enrique WILLINGHAM et alJ Clin Oncol 2012;30:6495-6911. Review of Systems Completed and negative aside [...] Paternal Grandmother Age of Onset: (Not Specified) Prob (more content not included)... [facility] 06-06-2024 Note General Surgery Offi ce/Clinic Note Chief Complaint consultation for colonoscopy HPI Staff 59 year old male presents on consultation from Dr. Merida for screening colonoscopy. Denies abdominal or rectal pain. No rectal bleeding or change in bowel habits. Denies nausea, vomiting or weight loss. Last colonoscopy completed 01/2015- normal. No known family history of colon cancer. History of Present Illness 59 yo male with h/o htn, REYMUNDO, Polycythemia vera, BPH, referred for screening colonoscopy; patient denies change in bms or blood in stools, no abd complaints; abd operations significant for hernia repair, last colonoscopy 2014, wnl; on baby asa daily, no NSAID use; no tobacco use; no fmhx of GI malignancy or IBD. Review of Systems PHQ Score Initial Depression Screen Score: 0 SCORE ROS - Provider Constitutional: no fever, no sweats, no weight loss. Eyes: no glasses, no blurred vision, no visual loss. ENMT: no dentures, no hoarseness, no swallowing difficulties, no hearing loss, no ear infection(s), no nose bleeds. Cardiovascular: normal blood pressure, no chest pain, regular heartbeat, no heart murmur. Respiratory: no shortness of breath, no cough, no asthma, no wheezing. Gastrointestinal: no nausea, no vomiting, no diarrhea, no constipation, no blood in stool, no change in bowel habits, no abdominal pain, no hepatitis. Genitourinary: no kidney stones, no urine infection, no dysuria. Musculoskeletal: no pain, no weakness. Skin: no changing moles, no rash, no skin lumps. Neurologic: no seizures, no epilepsy, no headache. Psychiatric: no emotional or psychiatric problem. Heme/Lymph: no bleeding problems, no anemia, no blood clots, no transfusions. Allergy/Immunologic: no swollen lymph nodes/glands, no IV drug abuse. Other: Additional ROS info: Except as noted in the above Review of Systems and in the History of Present Illness, all other systems have been reviewed and are negative or noncontributory. Physical Exam Vitals & Measurements HR: 72(Peripheral) RR: 16 BP: 126/64 HT: 70 in HT: 177.8 cm WT: 190.038 lb WT: 86.2 kg BMI: 27.27 HEENT: normal conjunctiva, sclera clear, no scleral icterus, EOM intact, PERRLA, oral mucosa moist without lesions. Neck: trachea midline, no mass, symmetric, no thyromegaly or nodules, no adenopathy Respiratory: lungs CTA, respirations non labored. Cardiovascular: regular rate and rhythm, no murmur, no pedal edema or varicosities. Gastrointestinal: soft, non distended, no tenderness, no masses, no palpable hernias, diastasis recti no, no hepatosplenomegaly; normal bs Lymphatic: no cervical adenopathy, no supraclavicular adenopathy. Musculoskeletal: normal gait, digits and nails without infection, nodes, cyanosis, clubbing. Skin: no rashes, no lesions, no ulcers, no subcutaneous nodules, induration. Psychiatric/Neuro: oriented to time, place, person, judgement normal, affect appropriate for age, insight intact, no focal deficits. Tests: review of old records completed , Discussed surgical options, risks, and possible complications with patient. Assessment/Plan 1. Screening for malignant neoplasm of colon (Z12.11: Encounter for screening for malignant neoplasm of colon) plan colonoscopy under anesthesia, informed consent obtained. Follow-up No qualifying data available Problem List/Past Medical History Ongoing BMI 27.0-27.9,adult BPH (benign prostatic hyperplasia) Hypertension REYMUNDO (obstructive sleep apnea) Overweight Polycythemia vera (clinical) Screening for malignant neoplasm of colon Seasonal allergic rhinitis Historical No qualifying data Procedure/Surgical History Colonoscopy (02/13/2015), Closed fracture of clavicle, Meniscal repair, Repair of left inguinal hernia, Repair of recurrent left inguinal hernia. Medications aspirin 81 mg Oral EC Tab, 81 mg= 1 tab(s), Oral, Daily Multi Vitamins oral tablet, 1 tab(s), Oral, Daily Nature's Bounty Red Krill Oil 500 mg oral capsule, 500 mg= 1 cap(s), Oral, BID turmeric 500 mg oral capsule, 500 mg= 1 cap(s), Oral, Daily Allergies Ceftin (Rash) etodolac (Rash) Social History Alcohol - Denies Alcohol Use, 06/06/2024 Substance Abuse - Denies Substance Abuse, 06/06/2024 Tobacco Never (less than 100 in lifetime) Tobacco Use:. Never Smokeless Tobacco Use:., 06/06/2024 Family History Diabetes mellitus type 2: Father. Heart disease: Mother. Hypertension: Father. Immunizations Vaccine Date Status Comments influenza virus vaccine, inactivated 02/18/2023 Recorded SARS-CoV-2 (COVID-19) mRNA BNT-162b2 vax 01/28/2021 Recorded SARS-CoV-2 (COVID-19) mRNA BNT-162b2 vax 05/23/2020 Recorded 2024-05-23: TPV50 SARS-CoV-2 (COVID-19) mRNA BNT-162b2 vax 05/02/2020 Recorded 2024-05-23: TPV50 [facility] Comment on above: Result Comment: Elec tronically Signed By: ELINOR HIDALGO, Jeremy Tyler\Date and Time Signed: 06/06/24 13:45 EDT 05-18-2024 Evaluation note Diagnosis Onset Date Resolution Polycythemia vera acute May 182024 9:25am Screening for colon cancer acute May 18, 2024 9:25am Screening PSA (prostate specific antigen) acute May 18 9:25am Wellness examination acute Apri 2024 9:25am Acute bronchitis due to other specified organisms noneactive May 18, 2024 9:25am [facility] Work Phone: 1(273) 517-984403-04-2025 NoteHNO ID: [id number] Author: KAYLIN LOPEZ Research Gregorio Service: ? Author Type: Research Type: Progress Notes Filed: 04/17/2024 10:22 Note Text: CRC 1 Documentation IRB#: [id number], [facility]# [id number], Study Title: An Extension Study to Evaluate [...] Given to RN/LEO Lyons for review. Kaylin Lopez [facility]inator[facility] History of Present illness Narrative* Kaylin Lopez Research Coordinator - 04/17/2024 10:15 AM EST CRC 1 Documentation IRB#: [id number], [facility]# [id number], Study Title: An Extension Study to Evaluate [...] Given to RN/LEO Lyons for review. Kaylin Lopez Research Coordinator [facility]25 NoteHNO ID: [id number] Author: ANNIE ABREU APRN.[employer] Service: ? Author Type: Registered Nurse Type: Progress Notes Filed: 04/18/2024 09:37 Note Text: Summary: PTG 19224-180 Week 48 visit Title:An Extension Study to [...] any study related procedures. PE: Sindy Abreu [employer] Patient is a Male with PV. Patient [...] course of Paxlovid. Pt saw his local bobbin winder 6-8 weeks ago and got a prescription for a topical antifungal topical cream for his fingernails that he has not started yet. Reviewed his medications and updated the grid. Pt leaving for [facility] tomorrow for one week and will be [...] 0 Enrique RM et alJ Clin Oncol 2012;30:3836-4555. PAST MEDICAL HISTORY Diagnosis Date Status/Active Issues [...] MESH REPAIR HX ~1998 REMOVE TONSILS/ADENOIDS,<12 Y/O ~1970s Social history: Smoking status: nonsmoker ETOH intake: Drinks on average 1-2 times per week, 2 rum and cokes. Denies recreational drug use. 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 EOT 05/19/2023. Rolled over to [facility] 1923 on 05/19/2023. Week 0: 05/19/2023 PTG-300 45 mg SC weekly Week 4: 06/16/2023 Maintain dosing Week 8+: 07/14/2023 Maintain dosing Patient is here today for Week 48 VISIT for the PT 1923 Trial, IRB# [id number]. Patient signed Informed Consent on 05/19/2023, prior to any study related procedures. PE: Sindy Abreu [employer] Patient is a Male with PV. Patient [...] course of Paxlovid. Pt saw his local bobbin winder 6-8 weeks ago andgot a prescription for a topical antifungal topical cream for his fingernails that he has not started yet. Reviewed his medications and updated the grid. Pt leaving for [place] tomorrow for one week and will be [...] 0 Enrique WILLINGHAM et alJ Clin Oncol 2012;30:1991-6154. PAST MEDICAL HISTORY Diagnosis Date Status/Active Issues [...] cokes. Denies recreational drug use. 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 Resolve date: ongoing. Drugs to treat:none. Outcome: present intermittently Infections and infestations (COVID-19 [...] PTG-300. The count is accurate. Collected and reviewedcompleted medication diary. Dispensed: The patient was given 12 cartons of rusfertide 45 mg each as dispensed by the pharmacy in pt's cooler with ice packs. Pt instructed to return empty cartons at next clinic visit. Dosing instructions were reviewed with the patient. Instructed pt to put empty vials and syringes in the sharps container. Pt to dispose of full sharps containers per his [facility]'s trash disposal guidelines. Pt verbalized understanding. Pt [...] doses each time. 45 mg cartons #s: [id number] Dosing: Reviewed mixing and administration directions for [...] useice. OTC Hydrocortisone cream may be used on [...] On-Call number for the On-Call Oncology Fellow ([phone]). Patient understands that this participation is voluntary and may withdrawal at any time during the trial. CAROL Zambrano, RN documented [facility]25 NoteHNO ID: [id number] Author: JASMIN SHERMAN LPN Service: ? Author Type: LICENSED NURSE Type: Progress Notes Filed: 04/17/2024 10:16 Note Text: Additional intake questions: Has the patient had fever, nausea, vomiting, diarrhea, constipation, fatigue for > 1 week? No Does the patient have a decreased appetite? No Does patient want to see a Ground Crew Supervisor? No (yes to any of above refer patient to schedulers for dietitian appointment) ) Does patient have any new or increased numbness or tingling of extremities? No Is patient interested in fertility information? No Does patient need any prescription refills? No Does patient have an advanced directive in place? No Electronically Signed By: [facility] History of Present illness Narrative* Jasmin Sherman LPN - 04/17/2024 9:12 AM EST Additional intake questions: Has the patient had fever, nausea, vomiting, diarrhea, constipation, fatigue for > 1 week? No Does the patient have a decreased appetite? No Does patient want to see a Ground Crew Supervisor? No (yes to any of above refer patient to schedulers for dietitian appointment) ) Does patient have any new or increased numbness or tingling of extremities? No Is patient interested in fertility information? No Does patient need any prescription refills? No Does patient have an advanced directive in place? No Electronically Signed By: aJsmin Sherman LPN * Annie Abreu APRN.[employer] - 04/17/2024 9:00 AM EST Some elements copied from note on 01/26/2024, the elements have been updated and all reflect current decision making from today, 04/17/2024. [facility] Clinical Note Assessment and Plan In [...] again in January of 2015). In September he had a hemoglobin of 18.8 g/dL. Subsequent erythropoietin testing was 1.1 mIU/mL. Testing ofthe peripheral blood on 10/16/2020 was negative for BCR-ABL, but positive for JAK2 V617F (VAF 47%). He started treatment with PTG-300 on 02/26/2021 (phase II study). Since starting he has not requiredphlebotomies. EOT visit was 05/19/2023 as patient elected to continue participation in rollover studyw/ rusfertide, PTG 1923, which he started that [...] which included preparing to see the patient, [id number] patient care, completing clinical documentation, obtaining and/or reviewing separately obtained history, performing a medically appropriate examination, counseling and educating the pat ient/family/caregiver, ordering medications, tests, or procedures, communicating with other HCPs (not separately reported), independently interpreting results (not separately reported), communicatingresults to the patient/family/caregiver, and care coordination (not separately reported). Annie Abreu APRN.[employer] Visit Details Past Medical History Mr. Leos presents today, accompanied by his , for follow up. He reports feeling well overalland denies any new complaints or concerns, nor any changes to his MPN-related symptoms. Denies any fevers, chills, chest pain, or shortness of breath. Is eating and drinking well. Denies any knee pain today. Of note, both he and his had Covid in late January - he tested positive and started Paxlovid on 02/06/2024. He saw his bobbin winder ~ 7 weeks ago for routine follow-up and was prescribed a newtopical medication for his fingernails which he has [...] be taking a 7 day trip to [place] later this week (Tuesday to Tuesday) and [...] 0 Enrique WILLINGHAM et alJ Clin Oncol 2012;30:1103-9290. Review of Systems Completed and negative aside [...] Take 200 mg by mouth once daily asneeded. Take 2 capsules by mouth once daily [...] Reviewed and in Epic. documented in this encounterMer[facility]25 NoteHNO ID: [id number] Author: ANNIE ABREU APRN.[employer] Service: ? Author Type: Nurse Practitioner Type: Progress Notes Filed: 04/17/2024 10:16 Note Text: Some elements copied from note on 01/26/2024, the elements have been updated and all reflect current decision making from today, 04/17/2024. [facility] Clinical Note Assessment and Plan In [...] as [facility], PTG 1923, which he [...] which included preparing to see the patient, [id number]-rpkg patient care, completing clinical documentation, obtaining and/or reviewing separately obtained history, performing a medically appropriate examination, counseling and educating the patient/family/caregiver, ordering medications, tests, or procedures, communicating with other HCPs (not separately reported), independently interpreting results (not separately reported), communicating results to the patient/family/caregiver, and care coordination (not separately reported). Annie Abreu APRN.[employer] Visit Details Past Medical History Mr. Leos [...] started Paxlovid on 02/06/2024. He saw his bobbin winder ~ 7 weeks ago for routine follow-up [...] be taking a 7 day trip to [place] later this week (Tuesday to Tuesday) and [...] 0 Enrique WILLINGHAM et alJ Clin Oncol 2012;30:1870-2377. Review of Systems Completed and negative aside [...] Including Cardiac Diseases, Psychiatric (more content not included)...[facility]12-12-2024 NoteHNO ID: [id number] Author: HANNAH LYONS RN Service: ? Author [...] for Week 36 VISIT for the PTG 192 Trial, IRB# [...] 0 Enrique RM et alJ Clin Oncol 2012;30:1420-7471. PAST MEDICAL HISTORY Diagnosis Date Status/Active Issues [...] cokes. Denies recreational drug use. 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 Dr. Ventura discussed updates with clinicaltrial with pt and his . Pt to maintain dosing at 45 mg SC weekly of PTG-300. Pt agrees with theplan. First Visit May 19, 2023: Patient does [...] 0 Enrique WILLINGHAM et alJ Clin Oncol 2012;30:8657-8987. PAST MEDICAL HISTORY Diagnosis Date Status/Active Issues [...] cokes. Denies recreational drug use. 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 Resolve date: ongoing. Drugs to treat:none. Outcome: present intermittently Resolved: Hypokalemia Grade 1. [...] PTG-300. The count is accurate. Collected and reviewedcompleted medication diary. Dispensed: The patient was given a new medication diary and 12 cartons of rusfertide 45 mg each as dispensed by the pharmacy in pt's cooler with ice packs. Pt instructed to return empty cartons and medication diary at next clinic visit. Use of the study medication diary and dosing instructions werereviewed with the patient. Instructed pt to put empty vials and syringes in the sharps container. Pt to dispose of full sharps containers per his [facility]'s trash disposal guidelines. Pt verbalized understanding. 45 mg cartons #s: [id number] Dosing: Reviewed mixing and administration directions for [...] useice. OTC Hydrocortisone cream may be used on [...] On-Call number for the On-Call Oncology Fellow ([phone]). Patient understands that this participation is voluntary and may withdrawal at any time during the trial. CAORL Zambrano, RN documented in this encounterMer[facility]. [facility]12-12-2024 NoteHNO ID: [id number] Author: ALANA BECK, Research Coordinator Service: ? Author Type: Research Type: Progress Notes Filed: 01/26/2024 13:57 Note Text: CRC 1 Documentation IRB#: [id number], [facility]# [id number], Study Title: An Extension Study to Evaluate [...] Ventura MD for review. Alana Beck, Research CoordinatorGrand [facility]12-[facility]-20[facility] History of Present illness Narrative* Alana Beck, Research Coordinator - 01/26/2024 1:53 PM EST CRC 1 Documentation IRB#: [id number], [facility] [id number], Study Title: An Extension Study to Evaluate [...] to Bryce Ventura MD for review. Alana Bekc Research Coordinator documented in this encounterMercy Health St. [facility]12-12-2024 NoteHNO ID: [id number] Author: JASMIN SHERMAN LPN Service: ? Author Type: LICENSED NURSE Type: Progress Notes Filed: 01/26/2024 11:17 Note Text: Additional intake questions: Has the patient had fever, nausea, vomiting, diarrhea, constipation, fatigue for > 1 week? No Does the patient have a decreased appetite? No Does patient want to see a Ground Crew Supervisor? No (yes to any of above refer patient to schedulers for dietitian appointment) ) Does patient have any new or increased numbness or tingling of extremities? No Is patient interested in fertility information? No Does patient need any prescription refills? No Does patient have an advanced directive in place? No, Patient referred to [facility] Electronically Signed By: [facility] History of Present illness Narrative* Jasmin Sherman LPN - 01/26/2024 11:17 AM EST Additional intake questions: Has the patient had fever, nausea, vomiting, diarrhea, constipation, fatigue for > 1 week? No Does the patient have a decreased appetite? No Does patient want to see a Ground Crew Supervisor? No (yes to any of above refer patient to schedulers for dietitian appointment) ) Does patient have any new or increased numbness or tingling of extremities? No Is patient interested in fertility information? No Does patient need any prescription refills? No Does patient have an advanced directive in place? No, Patient referred to [facility] Electronically Signed By: Jasmin Sherman LPN * Bryce Ventura MD - 01/26/2024 11:00 AM EST Some elements copied from note on 11/03/2023, the elements have been updated and all reflect currentdecision making from today, 01/26/2024. [facility] Clinical Note Assessment and Plan In [...] again in January of 2015). In September he had a hemoglobin of 18.8 g/dL. Subsequent erythropoietin testing was 1.1 mIU/mL. Testing ofthe peripheral blood on 10/16/2020 was negative for BCR-ABL, but positive for JAK2 V617F (VAF 47%). He started treatment with PTG-300 on 02/26/2021 (phase II study). Since starting he has not requiredphlebotomies. He is overall doing quite well. No [...] 0 Enrique WILLINGHAM et alJ Clin Oncol 2012;30:3828-2949. Review of Systems PAIN ASSESSMENT: Negative for [...] Take 200 mg by mouth once daily asneeded. Take 2 capsules by mouth once daily [...] 2024 TIME: 9:26 AM documented in this encounterMercy Health St. [facility]12-12-2024 NoteHNO ID: [id number] Author: BRYCE VENTURA MD Service: ? Author Type: Physician Type: Progress Notes Filed: 01/30/2024 09:27 Note Text: Some elements copied from note on 11/03/2023, the elements have been updated and all reflect current decision making from today, 01/26/2024. [facility] Clinical Note Assessment and Plan In [...] 0 Enrique RM et alJ Clin Oncol 2012;30:7733-7781. Review of Systems PAIN ASSESSMENT: Negative for [...] Currently Allergies and Medic (more content not included)...[facility] 11-03-2023 Nurse Note* Brittany Escobar RN - 11/03/2023 11:11 AM EDT Additional intake questions: Has the [...] Center Electronically Signed By: Brittany Escobar RN [facility]09-19-2024 Nurse Note* Brittany Escobar RN - 11/03/2023 11:11 AM EDT Additional intake questions: Has the [...] By: Brittany Escobar RN documented in this encounterMercy Health St. [facility]09-19-2024 History of Present illness Narrative* Hannah Lyons RN - 11/03/2023 11:00 AM EDTSummary: PTG 1923/24-180 Week 24 visit Title:An Extension Study to Evaluate the Long-term Safety of Rusfertide (PTG- 300) in Subjects with Polycythemia Vera Consent expiration 04/13/2024 Screening date: 05/19/2023 Subject#: [id number] PTG 1Z21: Week 1 02/26/2021. EOT 05/19/2023. Rolled over to PTG 1922 on 05/19/2023. Week 0: 05/19/2023 PTG-300 45 mg SC weekly Week 4: 06/16/2023 Maintain dosing Week 8+: 07/14/2023 Maintain dosing Patient is here today for Week 24 VISIT for the PTG 192 Trial, IRB# [...] the pt's MCV remains low with last phlebotomyoccurring in Feb 2021, he feels the Hgb [...] 0 Enrique RM et alJ Clin Oncol 2012;30:7462-4879. PAST MEDICAL HISTORY Diagnosis Date Status/Active Issues [...] cokes. Denies recreational drug use. 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 Resolve date: ongoing. Drugs to treat:none. Outcome: present intermittently Resolved: Hypokalemia Grade 1. [...] PTG-300. The count is accurate. Collected and reviewedcompleted medication diary. Dispensed: The patient was given a new medication diary and 12 cartons of rusfertide 45 mg each as dispensed by the pharmacy in pt's cooler with ice packs. Pt instructed to return empty cartons and medication diary at next clinic visit. Use of the study medication diary and dosing instructions werereviewed with the patient. Instructed pt to put empty vials and syringes in the sharps container. Pt to dispose of full sharps containers per his [facility]'s trash disposal guidelines. Pt verbalized understanding. 45 mg cartons #s: [id number] [id number] [id number] Dosing: Reviewed mixing and administration directions for [...] useice. OTC Hydrocortisone cream may be used on [...] On-Call number for the On-Call Oncology Fellow ([phone]). Patient understands that this participation is voluntary and may withdrawal at any time during the trial. CAROL Zambrano, RN documented in this encounterMercy Health St. [facility]09-19-2024 History of Present illness Narrative* Bryce Ventura MD - 11/03/2023 11:00 AM EDT Some elements copied from note on 02/25/2022, the elements have been updated and all reflect currentdecision making from today, 11/03/2023. [facility] Clinical Note Assessment and Plan In [...] again in January of 2015). In September he had a hemoglobin of 18.8 g/dL. Subsequent erythropoietin testing was 1.1 mIU/mL. Testing ofthe peripheral blood on 10/16/2020 was negative for BCR-ABL, but positive for JAK2 V617F (VAF 47%). He started treatment with PTG-300 on 02/26/2021 (phase II study). Since starting he has not requiredphlebotomies. He is overall doing quite well. No [...] MD, MPH, FACP PGY-V Hematology/Oncology Fellow Pager: [phone] Date: 11/03/2023 Time: 11:48 AM Visit Details [...] 0 Enrique WILLINGHAM et alJ Clin Oncol 2012;30:9178-4127. Review of Systems PAIN ASSESSMENT: Negative for [...] Take 200 mg by mouth once daily asneeded. Take 2 capsules by mouth once daily [...] to this visit and those in EPIC. I reviewed and agree with the assessment as documented above. SIGNATURE: Bryce Ventura MD DATE: November 03, 2023 TIME: 2:22 PM documented in this encounterMercy Health St. [facility]09-19-2024 NoteHNO ID: [id number] Author: HANNAH LYONS RN Service: ? Author Type: Registered Nurse Type: Progress Notes Filed: 11/03/2023 14:03 Note Text: Summary: PTG 1922/24-180 Week 24 visit Title:An Extension Study to [...] 0 Enrique WILLINGHAM et alJ Clin Oncol 2012;30:0038-5469. PAST MEDICAL HISTORY Diagnosis Date Status/Active Issues [...] cokes. Denies recreational drug use. 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 Author Type: Physician Type: Progress Notes Filed: 11/03/2023 14:22 Note Text: Some elements copied from note on 02/25/2022, the elements have been updated and all reflect current decision making from today, 11/03/2023. [facility] Clinical Note Assessment and Plan In [...] MD, MPH, FACP PGY-V Hematology/Oncology Fellow Pager: [phone] Date: 11/03/2023 Time: 11:48 AM Visit Details [...] 0 Enrique WILLINGHAM et alJ Clin Oncol 2012;30:6674-5247. Review of Systems PAIN ASSESSMENT: Negative for [...] Drug use: Not Curren (more content not included)...[facility] 11-03-2023 NoteHNO ID: [id number] Author: FLAVIO DUNCAN Research Coordinator Service: ? Author Type: Research Type: Progress Notes Filed: 11/03/2023 12:10 Note Text: CRC Documentation IRB#: [id number], [facility]#: PTG 1923, [...] ALEXANDRO [place] for review. Flavio Duncan, Research CoordinatorGrand Lake Joint Township [facility]09-19-2024 History of Present illness Narrative* Flavio Duncan, Research Coordinator - 11/03/2023 10:30 AM EDT CRC Documentation IRB#: [id number], [facility]#: PTG [id number], Study Title: An Extension Study to Evaluate the Long-term Safety of Rusfertide (PTG-300) in Subjects with Polycythemia Vera Informed Consent signed on 05/19/2023, prior to any study related procedures being performed that arenot SOC. Pt Study #: [id number] Treatment Arm: PTG-300 45 mg SC weekly C1D1: 05/19/2023 Patient presents for: Week November 03, 2023 The following research tasks have been completed per protocol: Quality of life questionnaire: Yes VS completed: Yes EKGs : No MISC1 delivered to [facility] lab on 11/02/2023 Given to ALEXANDRO [place] for review. Flavio Duncan, Research Coordinator documented in this encounterMercy Health St. [facility]06-27-2024 History of Present illness Narrative* Carmita Hernández MD - 08/11/2023 9:30 AM EDT Date: 08/11/2023 Chief Complaint: Polycythemia Vera HPI: Mr. Anil Leos is a 58 year old man with polycythemia vera. He is currently on week 12 onclinical trial PTG 1922. No new skin lesions or rashes. PAST [...] Take 200 mg by mouth once daily asneeded. Take 2 capsules by mouth once daily [...] 0 Enrique WILLINGHAM et alJ Clin Oncol 2012;30:5471-2393. Physical Examination: Vital signs: BP 135/71 Pulse [...] 08/11/2023 Neut% 81.2 08/11/2023 Lymph% 7.6 08/11/2023 [place]% 4.2 08/11/2023 Abs Neut (ANC) 11.08 08/11/2023 Abs Lymphs (Manual Diff) 0.48 12/02/2022 Abs [place] 0.57 08/11/2023 CMP: Sodium 140 08/11/2023 Chloride [...] Medical Decision Making Level: 4 - Moderate Carmita Hernández MD documented in this encounterMercy Health St. [facility]06-27-2024 Nurse Note* Jose Angel Leonardo LPN - 08/11/2023 9:23 AM EDT Additional intake questions: Has the patient had fever, nausea, vomiting, diarrhea, constipation, fatigue for > 1 week? No Does the patient have a decreased appetite? No Does patient want to see a Ground Crew Supervisor? No (yes to any of above refer patient to schedulers for dietitian appointment) ) Does patient have any new or increased numbness or tingling of extremities? No Is patient interested in fertility information? No Does patient need any prescription refills? No Does patient have an advanced directive in place? No, Patient refused referral to Social Work or Resource Center Electronically Signed By: Jose Angel Leonardo LPN [facility]06-27-[facility] Nurse Note* Jose Angel Leonardo LPN - 08/11/2023 9:23 AM EDT Additional intake questions: Has the patient had fever, nausea, vomiting, diarrhea, constipation, fatigue for > 1 week? No Does the patient have a decreased appetite? No Does patient want to see a Ground Crew Supervisor? No (yes to any of above refer patient to schedulers for dietitian appointment) ) Does patient have any new or increased numbness or tingling of extremities? No Is patient interested in fertility information? No Does patient need any prescription refills? No Does patient have an advanced directive in place? No, Patient refused referral to Social Work or Resource Center Electronically Signed By: Jose Angel Leonardo LPN documented in this encounterMercy Health St. [facility]06-27-2024 History of Present illness Narrative* Anaid Mabry RN - 08/11/2023 9:00 AM EDTSummary: PTG 1923/24-180 Week 12 visit Title:An Extension Study to Evaluate the Long-term Safety of Rusfertide (PTG- 300) in Subjects with Polycythemia Vera Consent expiration [...] 0 Enrique RM et alJ Clin Oncol 2012;30:1799-1909. PAST MEDICAL HISTORY Diagnosis Date Status/Active Issues [...] cokes. Denies recreational drug use. 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 Instructed pt to put empty vials and syringes in the sharps container. Pt to dispose of full sharps containers per his [facility]'s trash disposal guidelines. Pt verbalized understanding. 45 mg cartons #s: [id number],[id number],X241026,[id number],V617725, Y120328, [id number], G366594, V885689, J216164, K476753 Dosing: Reviewed mixing and administration directions for [...] for injection site pain and may use ice.OTC Hydrocortisone cream may be used on injection [...] On-Call number for the On-Call Oncology Fellow ([phone]). Patient understands that this participation is voluntary and may withdrawal at any time during the trial. Anaid Mabry RN BSN documented in this encounterMercy Health St. [facility]05-30-2024 History of Present illness Narrative* Vanna Mattson APRN.[employer] - 07/14/2023 9:36 AM EDT Elements have been copied from prior note on 06/16/2023 - The elements have been reviewed and updatedwhere appropriate, and all reflect my current assessment and decision-making from today, 07/14/2023. [facility] Clinical Note Assessment and Plan In [...] research team with any questions or concerns. Vanna Mattson [facility] Hematology/Oncology Pager [phone] 1:06 PM July 14, 2023 I spent a total of 30 minutes on the date of the service which included preparing to see the patient, nncq-om-llws patient care, obtaining and/or reviewing separately obtained history, performing a medically appropriate examination, counseling and educating the patient/family/caregiver, ordering med ications, tests, or procedures, communicating with other HCPs [...] 0 Enrique RM et alJ Clin Oncol 2012;30:4109-9997. Review of Systems Reviewed and reported in [...] Reviewed, please see Epic. documented in this encounterMercy Health St. [facility]05-30-2024 Nurse Note* Hannah Berrios OCCA - 07/14/2023 9:32 AM EDT Additional intake questions: Has the patient had fever, nausea, vomiting, diarrhea, constipation, fatigue for > 1 week? No Does the patient have a decreased appetite? No Does patient want to see a Ground Crew Supervisor? No (yes to any of above refer patient to schedulers for dietitian appointment) ) Does patient have any new or increased numbness or tingling of extremities? No Is patient interested in fertility information? No Does patient need any prescription refills? No Does patient have an advanced directive in place? No [facility]-30-[facility] Nurse Note* Hannah Berrios OCCA - 07/14/2023 9:32 AM EDT Additional intake questions: Has the patient had fever, nausea, vomiting, diarrhea, constipation, fatigue for > 1 week? No Does the patient have a decreased appetite? No Does patient want to see a Ground Crew Supervisor? No (yes to any of above refer patient to schedulers for dietitian appointment) ) Does patient have any new or increased numbness or tingling of extremities? No Is patient interested in fertility information? No Does patient need any prescription refills? No Does patient have an advanced directive in place? No documented in this encounterMercy Health St. [facility]05-30-2024 History of Present illness Narrative* Hannah Lyons RN - 07/14/2023 9:30 AM EDTSummary: PTG 1923/24-180 Week 8 visit Title:An Extension Study to Evaluate the Long-term Safety of Rusfertide (PTG- 300) in Subjects with Polycythemia Vera Consent expiration 04/13/2024 Screening date: 05/19/2023 Subject#: [id number] PTG 1Z21: Week 1 02/26/2021. EOT 05/19/2023. Rolled over to PTG 192 on 05/19/2023. Week 0: 05/19/2023 PTG-300 45 mg SC weekly Week 4: 06/16/2023 Maintain dosing Patient is here today for Week 8 VISIT for the PTG 1923 Trial, IRB# [id number]. Patient signed InformedConsent on 05/19/2023, prior to any study related [...] see if would help. Pt will let researchteam know if he starts it. First Visit [...] 0 Enrique WILLINGHAM et alJ Clin Oncol 2012;30:5725-0235. PAST MEDICAL HISTORY Diagnosis Date Status/Active Issues [...] cokes. Denies recreational drug use. 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 Ptto dispose of full sharps containers per his [facility]'s trash disposal guidelines. Pt verbalized understanding. 45 mg cartons #s: [id number], [id number], [id number] Dosing: Reviewed mixing and administration directions for [...] for injection site pain and may use ice.OTC Hydrocortisone cream may be used on injection [...] On-Call number for the On-Call Oncology Fellow ([phone]). Patient understands that this participation is voluntary and may withdrawal at any time during the trial. CAROL Zambrano, RN documented in this encounterMercy Health St. [facility]05-02-2024 History of Present illness Narrative* Hannah Lyons RN - 06/16/2023 9:57 AM EDTSummary: PTG 1923/24-180 Week 4 visit Title:An Extension Study to Evaluate the Long-term Safety of Rusfertide (PTG- 300) in Subjects with Polycythemia Vera Consent expiration 04/13/2024 Screening date: 05/19/2023 Subject#: [id number] PTG 1Z21: Week 1 02/26/2021. EOT 05/19/2023. Rolled over to PTG 1922 on 05/19/2023. Week 0: 05/19/2023 PTG-300 45 mg SC weekly Week 4: 06/16/2023 Maintain dosing Patient is here today for Week 4 VISIT for the PTG 1923 Trial, IRB# [id number]. Patient signed InformedConsent on 05/19/2023, prior to any study related [...] 0 Enrique WILLINGHAM et alJ Clin Oncol 2012;30:5207-0356. PAST MEDICAL HISTORY Diagnosis Date Status/Active Issues [...] cokes. Denies recreational drug use. 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 Pt instructed to return empty cartons and medication diary at next clinic visit. Use of the study medication diary and dosing instructions were reviewed with the patient. Instructed pt to put empty vials and syringes in the sharps container. Pt is to dispose of full sharps containers [facility]. Pt verbalized understanding. 45 mg cartons #s: [id number], [id number], [id number], [id number] Dosing: Reviewed mixing and administration directions for [...] for injection site pain and may use ice.OTC Hydrocortisone cream may be used on injection [...] On-Call number for the On-Call Oncology Fellow ([phone]). Patient understands that this participation is voluntary and may withdrawal at any time during the trial. CAROL Zambrano, RN documented in this encounterMercy Health St. [facility]05-02-2024 History of Present illness Narrative* Annie Abreu APRN.[employer] - 06/16/2023 9:00 AM EDT Elements have been copied from prior note on 05/19/2023 - The elements have been reviewed and updatedwhere appropriate, and all reflect my current assessment and decision-making from today, 06/16/2023. [facility] Clinical Note Assessment and Plan In [...] on 45 mg weekly dosing and is toleratingit well. No injection reactions. Labs overall stable [...] which included preparing to see the patient, [id number] patient care, obtaining and/or reviewing separately obtained history, performing a medically appropriate examination, counseling and educating the patient/family/caregiver, ordering med ications, tests, or procedures, communicating with other HCPs (not separately reported), independently interpreting results (not separately reported), and communicating results to the patient/family/caregiver. Signed: Annie Abreu APRN.[employer] Visit Details Interval History Mr. Leos presents [...] 0 Enrique WILLINGHAM et alJ Clin Oncol 2012;30:6348-7246. Review of Systems Reviewed and reported in [...] Reviewed, please see Epic. documented in this encounterMercy Health St. [facility]05-02-2024 Nurse Note* Hannah Berrios OCCA - 06/16/2023 8:53 AM EDT Additional intake questions: Has the patient had fever, nausea, vomiting, diarrhea, constipation, fatigue for > 1 week? No Does the patient have a decreased appetite? No Does patient want to see a Ground Crew Supervisor? No (yes to any of above refer patient to schedulers for dietitian appointment) ) Does patient have any new or increased numbness or tingling of extremities? No Is patient interested in fertility information? No Does patient need any prescription refills? No Does patient have an advanced directive in place? No [facility]-02-[facility] Nurse Note* Hannah Berrios OCCA - 06/16/2023 8:53 AM EDT Additional intake questions: Has the patient had fever, nausea, vomiting, diarrhea, constipation, fatigue for > 1 week? No Does the patient have a decreased appetite? No Does patient want to see a Ground Crew Supervisor? No (yes to any of above refer patient to schedulers for dietitian appointment) ) Does patient have any new or increased numbness or tingling of extremities? No Is patient interested in fertility information? No Does patient need any prescription refills? No Does patient have an advanced directive in place? No documented in this encounterMercy Health St. [facility]04-04-2024 History of Present illness Narrative* Hannah Lyons RN - 05/19/2023 12:18 PM EDTSummary: PTG 1923/24-180 Pt signed informed consent Title: An Extension Study to Evaluate the Long-term Safety of Rusfertide (PTG- 300) in Subjects withPolycythemia Vera Pt is here for Screening of [...] of all instructions provided. documented in this encounterMercy Health St. Charles [facility]04-04-2024 History of Present illness Narrative* Barbie Price RT([place]) - 05/19/2023 12:02 PM EDT Radiology Service Progress Note PATIENT [...] PATIENT PRESENTS WITH AN IMPLANTABLE OR ATTACHED CELL PLASTERER: No RADIOLOGY DEPARTMENT: CT; Exam(s) Completed: Abdomen PERIPHERAL IV DATA: Not applicable SIGNED BY: RT Les(R) May 19, 2023 12:02 PM documented in this encounterMercy Health St. [facility]04-04-2024 History of Present illness Narrative* Hannah Lyons RN - 05/19/2023 12:01 PM EDTSummary: PTG 1923/24-108 Screening/Week 0 visit Title:An Extension Study to Evaluate the Long-term Safety of Rusfertide (PTG- 300) in Subjects with Polycythemia Vera Consent expiration [...] and male patients with partners of childbearing potentialagree to use a highly effective form(s) of [...] ups and cancer screenings. Pt sees his bobbin winder regularly. Pt instructed to reduce sun exposure, [...] Subject who, in the opinion of the computer forensics investigator, should not participate in the study. [...] (ova, oocytes) for the purposes of assisted reproductionduring the study and for a period of [...] any of the excipients. 11. In the computer forensics investigator s opinion the subject has progressive disease that cannot be managed by adjusting concurrent cytoreductive therapy. Patient meets all Criteria for Study Participation: Yes [place] plan has been entered for prior-authorization: N/A [...] research RN contact information and hem/onc fellow supervisor contact and service clerks phone number. 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 Dosed with carton # [id number]. 0.5-2 hr post dose PK: 1532. No [...] at next clinic visit. Instructed pt to putempty vials and syringes in the sharps container. Pt is to dispose of full sharps containers [facility]. Pt verbalized understanding. 45 mg cartons #s: [id number], [id number], [id number], [id number] Patient aware to RTC on 06/16/2023 for Week 4 of PTG 1923. CAROL Zambrano, RN * Hannah Lyons, RN - 05/19/2023 10:22 AM EDTSummary: PTG 1Z21/21-283 EOT visit Title:A Phase 2 Study of the Hepcidin Mimetic PTG-300 in Patients with Phlebotomy-Requiring Polycythemia Vera Consent expiration 05/29/2021 Screening date: 02/12/2021 Screening #: [id number] Part 1 week 1: 02/26/2021 PTG-300 20 [...] IRB# [id number]. PE: completed by Sindy Brennan [employer]. Patient is a Male with PV. Patient is willing and able to comply with the protocol for the durationof the study including undergoing treatment and scheduled visits and examinations. Pt here with his . Pt rolling over to the extension study and will get PTG- 300 dispensed from under the extension study. Pt [...] 0 Enrique RM et alJ Clin Oncol 2012;30:7955-5668. PAST MEDICAL HISTORY Diagnosis Date Status/Active Issues [...] cokes. Denies recreational drug use. 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 Patient understands that this participation is voluntary and may withdrawal at any time during the trial. CAROL Zambrano, RN documented in this encounterMercy Health St. [facility]04-04-2024 Nurse Note* Jasmin Sherman LPN - 05/19/2023 10:17 AM EDT Additional intake questions: Has the patient had fever, nausea, vomiting, diarrhea, constipation, fatigue for > 1 week? No Does the patient have a decreased appetite? No Does patient want to see a Ground Crew Supervisor? No (yes to any of above refer [...] By: Jasmin Sherman LPN documented in this encounterMercy Health St. [facility]04-04-2024 History of Present illness Narrative* Flavio Duncan, Research Coordinator - 05/19/2023 10:02 AM EDT CRC Documentation IRB#: [id number], [facility]# PTG 1Z21, Study Title: A Phase 2 [...] 11:04 AM Rollover visit for IRB#: [id number], [facility] 1923, Study Title: An Extension Study to Evaluate the Long-term Safety of Rusfertide (PTG-300) in Subjects with Polycythemia Vera Informed Consent signed on 05/19/2023, prior to any study related procedures being performed that arenot SOC. Pt Study #: [id number] C1D1: 05/19/2023 Patient presents for Cycle: Enrollment Week: 0 The following research tasks have been completed per protocol: Quality of life questionnaire: Yes (see above) EKGs : Yes (see above) Given to ALEXANDRO London for review. Flavio Duncan, Research Coordinator documented in this encounterMercy Health St. [facility]04-04-2024 History of Present illness Narrative* Annie Abreu APRN.[facility] - 05/19/2023 10:00 AM EDT Elements copied from note dated 03/24/2023 have been reviewed and updated where appropriate, and all reflect current assessment and medical decision making during today's encounter, 05/19/2023. [facility] Clinical Note Assessment and Plan In [...] which included preparing to see the patient, rbvz-gc-bfya patient care, obtaining and/or reviewing separately obtained history, performing a medically appropriate examination, counseling and educating the patient/family/caregiver, ordering med ications, tests, or procedures, communicating with other HCPs (not separately reported), independently interpreting results (not separately reported), and communicating results to the patient/family/caregiver. Signed: Annie Abreu APRN.[employer] Visit Details Interval History Mr. Leos presents [...] 0 Enrique WILLINGHAM et alJ Clin Oncol 2012;30:3842-1549. Review of Systems Reviewed and reported in [...] Reviewed, please see Epic. documented in this encounterMercy Health St. [facility]04-03-2024 Miscellaneous Notes* Telephone Encounter - Lizbet Mccloud - 05/18/2023 12:55 PM EDT 1st time treatment report. Patient is active with [employer], LOC 80%, $1500 deductible has $1456.87 remaining, and $5500 OOP has $5259.01 remaining. Did not run estimate- pt is active in clinical trial. Called the patient to discuss navigator services and LLS, left a voicemail to return call. Emailed pt contact info and FN hot card. DX: [id number] Polycythemia documented in this encounterMercy Health St. [facility]04-02-2024 Miscellaneous Notes* Telephone Encounter - Hannah Lyons RN - 05/17/2023 3:34 PM EDTSummary: PTG 1922/24-180 consent presentation Informed Consent Presentation IRB# [id number] Title: An Extension Study to Evaluate the Long-term Safety of Rusfertide (PTG-300) in Subjects with Polycythemia Vera Consent expiration date 04/13/2024 Spoke with patient at the request of Dr. Ventura. Treatment plan, including all testing, potential risks/benefits, side effects and management, treatment alternatives, and follow-up explained. Roles ofthe clinical trial personnel to be involved and the financial responsibilities regarding proceduresand medications were discussed. Discussed the importance of effective contraception during and following completion of active therapy for 90 days. Initial questions were answered and a copy of the informed consent was given to patient with the instructions to read it and call with any additional questions. Contact information for the research nurse was given to the patient. The patient verbalizedappropriate understanding of all the aforementioned information presented. Time of Presentation: 1530 Hannah Lyons RN Spoke with pt over the phone. Pt aware of the plan to roll him over to PTG 1923 on his next visit on 05/19/2023. Discussed changes in dosing, appointment frequency and signing consent prior to getting lab work completed. Pt verbalized understanding. Verified pt's email as [email or web address] and that he needs to read the consent prior to signing on , 05/19/2023. Pt has research RN's contact info in order to answer any questions he may have. documented in this encounterMercy Health St. [facility]02-08-2024 History of Present illness Narrative* Hannah Lyons RN - 03/24/2023 3:17 PM EST Late entry for 1240: Pt denies any recent bleeding episodes or increase in bruising. * Hannah Lyons RN - 03/24/2023 10:38 AM ESTSummary: PTG 1Z21/21-283 Part 3 Cycle 16 day 1 visit Title:A Phase 2 Study of the Hepcidin Mimetic PTG-300 in Patients with Phlebotomy-Requiring Polycythemia Vera Consent expiration 05/29/2021 Screening date: 02/12/2021 Screening #: [id number] Part 1 week 1: 02/26/2021 PTG-300 20 [...] 0 Enrique WILLINGHAM et alJ Clin Oncol 2012;30:6733-5243. PAST MEDICAL HISTORY Diagnosis Date Status/Active Issues [...] cokes. Denies recreational drug use. 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 Patient understands that this participation is voluntary and may withdrawal at any time during the trial. Patient aware to RTC in 8 weeks for Part 3 Cycle 17 day 1 of PTG 1Z21. CAROL Zambrano, RN documented in this encounterMercy Health St. [facility]02-08-2024 History of Present illness Narrative* Annie Abreu APRN.[employer] - 03/24/2023 10:00 AM EST Elements copied from my note dated 01/27/2023 have been reviewed and updated where appropriate, andall reflect current assessment and medical decision making during today's encounter, 03/24/2023. [facility] Clinical Note Assessment and Plan In [...] visit today. Continues on 60 mg investigational PTG- 300 weekly. No contraindication to continuing per study [...] contact research team and/or seek urgent medical attentionshould he develop any numbness, pain, discoloration, or swelling to feet to r/o circulation issue. I spent a total of 35 minutes on the date of the service which included preparing to see the patient, dcmp-wj-kcxb patient care, obtaining and/or reviewing separately obtained history, performing a medically appropriate examination, counseling and educating the patient/family/caregiver, ordering med ications, tests, or procedures, communicating with other HCPs (not separately reported), independently interpreting results (not separately reported), and communicating results to the patient/family/caregiver. Signed: Annie Abreu APRN.[employer] Visit Details Interval History Mr. Leos presents today for follow up, accompanied by his . He denies any specific complaints other than his feet feeling cold. Both he and his share that they are cold to the touch, but he denies any pain, mottling, discoloration, swelling, or difficulty with walking. This was even thecase when they were in [place] within the last couple of weeks. He [...] with his PTG injections or missed doses. Nonew medications but shares that he restarted his [...] 0 Enrique WILLINGHAM et alJ Clin Oncol 2012;30:5068-3253. Review of Systems Reviewed and reported in [...] Reviewed, please see Epic. documented in this encounterMercy Health St. [facility]02-08-2024 Nurse Note* Jeremy Wheeler LPN - 03/24/2023 9:48 AM EST Additional intake questions: Has the patient had fever, nausea, vomiting, diarrhea, constipation, fatigue for > 1 week? No Does the patient have a decreased appetite? No Does patient want to see a Ground Crew Supervisor? No (yes to any of above refer [...] By: Jeremy Wheeler LPN documented in this encounterMercy Health St. Charles [facility]02-06-2024 Miscellaneous Notes* Telephone Encounter - Anaid Mabry RN - 03/22/2023 11:22 AM EST Spoke with pt regarding missed appointment today. Pt apologized and stated he did not realize he had an appointment today, as he is usually here on . Assured patient not a problem. Pt verbalized he will be here , 03/24/23 for labs at 9:00 and provider visit at 10:00. Anaid Mabry RN BSN documented in this encounterMercy Health St. Charles [facility]12-14-2023 History of Present illness Narrative* Annie Abreu APRN.[employer] - 01/27/2023 11:30 AM EST Elements copied from my note dated 12/02/2022 have been reviewed and updated where appropriate, andall reflect current assessment and medical decision making during today's encounter, 01/27/2023. [facility] Clinical Note Assessment and Plan In [...] as well for same reason as above. S/plocal derm visit on 09/22/22. Reports no concerning [...] which included preparing to see the patient, krvt-ri-jhsf patient care, obtaining and/or reviewing separately obtained history, performing a medically appropriate examination, counseling and educating the patient/family/caregiver, ordering med ications, tests, or procedures, communicating with other HCPs (not separately reported), independently interpreting results (not separately reported), and communicating results to the patient/family/caregiver. Signed: Annie Abreu APRN.[employer] Visit Details Interval History Mr. Leos presents [...] one month ago for which he went tot ED per his PCP's instruction, was given [...] 0 Enrique WILLINGHAM et alJ Clin Oncol 2012;30:2579-4290. Review of Systems Reviewed and reported in [...] Reviewed, please see Epic. documented in this encounterMercy Health St. [facility]12-14-2023 Nurse Note* Pablo Bob - 01/27/2023 11:10 AM EST Additional intake questions: Has the patient had fever, nausea, vomiting, diarrhea, constipation, fatigue for > 1 week? No Does the patient have a decreased appetite? No Does patient want to see a Ground Crew Supervisor? No (yes to any of above refer patient to schedulers for dietitian appointment) ) Does patient have any new or increased numbness or tingling of extremities? No Is patient interested in fertility information? No Does patient need any prescription refills? No Does patient have an advanced directive in place? No, Patient referred to [facility] documented in this encounterMercy Health St. [facility]10-20-2023 Evaluation note* Encounter Date Diagnosis Assessment Notes Treatment Notes Treatment Clinical Notes Nov, Acute bronchitis due to other specified organisms (ICD-10 - J20.8) Instructed to use Robitussin or Mucinex for cough, saline or Flonase NS for congestion, Tylenol for pain and fever. Nov, Polycythemia vera (ICD-10 - D45) Continue w/ trial, f/u [facility] Stable, f/u [facility] CBC yesterday w/ leukocytosis and thrombocythemia [facility] Other 10-20-2023 Evaluation note* Encounter Date Diagnosis Assessment Notes Treatment Notes Treatment Clinical Notes Nov, Splenomegaly (ICD-10 - R16.1) [facility] Other 10-19-2023 History of Present illness Narrative* [...] IV DATA: Not applicable SIGNED BY: RT Jatin([place]) December 02, 2022 12:20 PM documented in this encounterMercy Health St. Charles Hospital10-19-2023 History of Present illness Narrative* Hannah Lyons RN - 12/02/2022 1:42 PM EDTSummary: YIFAN 1Z21/21-283 Part 3 Cycle 14 day 1 visit Title:A Phase 2 Study of the Hepcidin Mimetic PTG-300 in Patients with Phlebotomy-Requiring Polycythemia Vera Consent expiration 05/29/2021 Screening date: 02/12/2021 Screening #: [id number] Part 1 week 1: 02/26/2021 Part 2 [...] protocol: yes Changes per patient: Yes, see [facility] Quality of life questionnaire completed per protocol: [...] 0 Enrique WILLINGHAM et alJ Clin Oncol 2012;30:4338-2306. PAST MEDICAL HISTORY Diagnosis Date Status/Active Issues [...] cokes. Denies recreational drug use. 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 Patient understands that this participation is voluntary and may withdrawal at any time during the trial. Patient aware to RTC in 8 weeks for Part 3 Cycle 15 day 1 of PTG 1Z21. CAROL Zambrano, RN documented in this encounterMercy Health St. [facility]08-24-2023 History of Present illness Narrative* Hannah Lyons RN - 10/07/2022 12:27 PM EDTSummary: PTG 1Z21/21-283 Part 3 Cycle 12 day 1 visit Title:A Phase 2 Study of the Hepcidin Mimetic PTG-300 in Patients with Phlebotomy-Requiring Polycythemia Vera Consent expiration 05/29/2021 Screening date: 02/12/2021 Screening #: [id number] Part 1 week 1: 02/26/2021 Part 2 [...] at this time. Pt saw his local bobbin winder since his last visit. No new skin [...] 0 Enrique WILLINGHAM et alJ Clin Oncol 2012;30:8608-8739. PAST MEDICAL HISTORY Diagnosis Date Status/Active Issues [...] cokes. Denies recreational drug use. 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 Patient understands that this participation is voluntary and may withdrawal at any time during the trial. Patient aware to RTC in 8 weeks for Part 3 Cycle 14 day 1 of PTG 1Z21. CAROL Zambrano, RN documented in this encounterMercy Health St. Charles [facility]08-24-2023 History of Present illness Narrative* Sheryl Virgen PA-C - 10/07/2022 11:00 AM EDT Elements copied from Annie Abreu's note dated 08/13/22, have been reviewed and updated where appropriate, and all reflect current assessment and medical decision making during today's encounter,October 07, 2022 [facility] Clinical Note Assessment and Plan In [...] study protocol Sheryl Virgen PA-C Hematology/Oncology Pager [phone] Visit Details Interval History Mr. Leos presents [...] 0 Enrique RM et alJ Clin Oncol 2012;30:9232-3894. Review of Systems Reviewed and reported in [...] Reviewed, please see Epic. documented in this encounterMercy Health St. [facility]08-24-2023 Nurse Note* Jasmin Sherman LPN - 10/07/2022 10:55 AM EDT Additional intake questions: Has the patient had fever, nausea, vomiting, diarrhea, constipation, fatigue for > 1 week? No Does the patient have a decreased appetite? No Does patient want to see a Ground Crew Supervisor? No (yes to any of above refer patient to schedulers for dietitian appointment) ) Does patient have any new or increased numbness or tingling of extremities? No Is patient interested in fertility information? No Does patient need any prescription refills? No Does patient have an advanced directive in place? No, Patient referred to [facility] Electronically Signed By: Jasmin Sherman LPN documented in this encounterMercy Health St. Charles Hospital08-23-2023 Evaluation note* Encounter Date Diagnosis Assessment [...] is aware of the benefits associated with RYEMUNDO: With continued use, the patient reduces the risk for OH, CVA, HTN, cardiac dysrhythmias and sudden cardiac [...] (ICD-10 - Z12.5) Yearly AMADO and PSA [employer] Other 07-28-2023 Miscellaneous Notes* Telephone Encounter - Hannah Lyons RN - 09/10/2022 10:44 AM EDT Noted that pt did not get local CBC/D yesterday. Called pt and he is going to get blood drawn today. documented in this encounterMercy Health St. [facility]06-30-2023 History of Present illness Narrative* Kyleigh Rust RN - 08/13/2022 2:31 PM EDT Title:A Phase 2 Study of the Hepcidin Mimetic PTG-300 in Patients with Phlebotomy-Requiring Polycythemia Vera Consent expiration 05/29/2021 Screening date: 02/12/2021 Screening #: [id number] Part 1 week 1: 02/26/2021 Part 2 [...] equates to feeling like motion sickness JACKELYN Truong,[employer]TON AND BUCKLE MAKER prescribed meclizine. Pt has been on a stable dose greater than 2 cycles and next cycle is optional. Pt will get lab work completed locally for a cbc/d in 4 weeks, ~09/10/2022. Pt verbalized understanding. All labs and AEs reviewed by and Alexi,MACHINE LONG GOODS HELPER, [employer] BU[employer]LE [employer]KER Patient continues to meet parameters to proceed [...] 0 Enrique WILLINGHAM et alJ Clin Oncol 2012;30:8667-0628. PAST MEDICAL HISTORY Diagnosis Date Status/Active Issues [...] cokes. Denies recreational drug use. 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 Pt reports Thursdays are better days to dose for his schedule and will dose today and then back to . Patient states he feels comfortable administering injections at home. Patient has research RN contact information and hem/onc fellow supervisor contact and service clerks phone number. 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 Patient understands that this participation is voluntary and may withdrawal at any time during the trial. Patient aware to get local blood work in 4 weeks and RTC in8 weeks for Part 3 Cycle 12 day 1 of PTG 1Z21. Kyleigh Rust, RN, OCN documented in this encounterMercy Health [facility]. [facility]06-30-2023 History of Present illness Narrative* Annie Abreu APRN.[employer]KER - 08/13/2022 2:00 PM EDT *Some elements have been copied from Sheryl Virgen's note on 06/17/2022 - The elements have been updated and all reflect my current decision making from today, 08/13/2022. [facility] Clinical Note Assessment and Plan In [...] He has a follow-up appointment with his bobbin winder (non [facility]) on 09/22/2022. Dizziness Intermittent. Had vertigo in the past years ago - resolved with medication. Amenable to trying meclizine - script sent to local [facility] pharmacy per his request. Provided after-hours/weekend provider on-call telephone number for any questions/concerns given the upcoming weekend and holiday. RTC in 8 weeks with labs per study protocol - to get labs locally in [place] in the meanwhile in ~4 weeks. Signed: Annie Abreu APRN.[employer]KER Date: August 13, 2022 Visit Details Interval [...] that he was prescribed by his local bobbin winder but he has been taking the oral [...] 0 Enrique WILLINGHAM et alJ Clin Oncol 2012;30:7862-1980. Review of Systems Reviewed and negative aside [...] Reviewed, please see Epic. documented in this encounterMercy Health St. [facility]06-30-2023 Nurse Note* Jasmin Sherman LPN - 08/13/2022 1:50 PM EDT Additional intake questions: Has the patient had fever, nausea, vomiting, diarrhea, constipation, fatigue for > 1 week? No Does the patient have a decreased appetite? No Does patient want to see a Ground Crew Supervisor? No (yes to any of above refer [...] By: Jasmin Sherman LPN documented in this encounterMercy Health St. [facility]06-26-2023 Miscellaneous Notes* Telephone Encounter - Kyleigh Rust RN - 08/09/2022 4:37 PM EDT Returned patients call. 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 I explained that is not permitted and he is required to be assessed by a provider. Arrangements are being made for patient to be seen on Tuesday08/13/2022. Patient stated I should be able to make that, I'll call you on Patient has my return number [phone]. documented in this encounterMercy Health St. [facility]05-04-2023 Nurse Note* Jasmin Sherman LPN - 06/17/2022 11:05 AM EDT Additional intake questions: Has the patient had fever, nausea, vomiting, diarrhea, constipation, fatigue for > 1 week? No Does the patient have a decreased appetite? No Does patient want to see a Ground Crew Supervisor? No (yes to any of above refer [...] By: Jasmin Sherman LPN documented in this encounterMercy Health St. [facility]05-04-2023 History of Present illness Narrative* Sheryl Virgen PA-C - 06/17/2022 11:00 AM EDT Elements copied from Meghan Graves' note dated 04/22/2022, have been reviewed and updated where appropriate, and all reflect current assessment and medical decision making during today's encounter, June [facility] Clinical Note Assessment and Plan In [...] study protocol Sheryl Virgen PA-C Hematology/Oncology Pager [phone] Visit Details Interval History Patient presents today [...] 0 Enrique WILLINGHAM et alJ Clin Oncol 2012;30:4346-6909. Review of Systems Reviewed and noted in [...] prior to this visit and those in [facility]. documented in this encounterMercy Health St. [facility]04-21-2023 Evaluation note* Encounter Date Diagnosis Assessment Notes Treatment Notes Treatment Clinical Notes May, Seasonal allergic rhinitis due to pollen (ICD-10 - J30.1) [employer] Other 03-09-2023 History of Present illness Narrative* Hannah Lyons RN - 04/22/2022 12:38 PM ESTSummary: PTG 1Z21/21-283 Part 3 cycle 6 day 1 visit Title:A Phase 2 Study of the Hepcidin Mimetic PTG-300 in Patients with Phlebotomy-Requiring Polycythemia Vera Consent expiration 05/29/2021 Screening date: 02/12/2021 Screening #: [id number] Part 1 week 1: 02/26/2021 Part 2 [...] gets bigger, pt to be seen by bobbin winder. Pt has been on a stable dose [...] 0 Enrique WILLINGHAM et alJ Clin Oncol 2012;30:2197-9433. PAST MEDICAL HISTORY Diagnosis Date Status/Active Issues [...] cokes. Denies recreational drug use. 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 Patient understands that this participation is voluntary and may withdrawal at any time during the trial. Patient aware to get local blood work in 4 weeks and RTC in8 weeks for Part 3 Cycle 8 day 1 of PTG 1Z21. CAROL Zambrano, RN documented in this encounterMercy Health St. [facility]03-09-2023 History of Present illness Narrative* RT [...] 22, 2022 8:55 AM documented in this encounterMercy Health St. [facility]01-12-2023 History of Present illness Narrative* Hannah Lyons RN - 02/25/2022 2:09 PM ESTSummary: PTG 1Z21/21-283 Part 3 cycle 4 day 1 visit. Title:A Phase 2 Study of the Hepcidin Mimetic PTG-300 in Patients with Phlebotomy-Requiring Polycythemia Vera Consent expiration 05/29/2021 Screening date: 02/12/2021 Screening #: [id number] Part 1 week 1: 02/26/2021 Part 2 [...] 0 Enrique WILLINGHAM et alJ Clin Oncol 2012;30:2186-3726. PAST MEDICAL HISTORY Diagnosis Date Status/Active Issues [...] cokes. Denies recreational drug use. 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 Gerds, along with the 24 hour On-Call number for the On-Call Oncology Fellow ([phone]). Patient understands that this participation is voluntary and may withdrawal at any time during the trial. Patient aware to get local blood work in 4 weeks and RTC in8 weeks for Part 3 Cycle 6 day 1 of PTG 1Z21. CAROL Zambrano, RN documented in this encounterMercy Health St. [facility]01-12-2023 History of Present illness Narrative* Bryce Ventura MD - 02/25/2022 1:20 PM EST Some elements copied from my note on 12/31/2021, the elements have been updated and all reflect current decision making from today, 01/28/2022. [facility] Clinical Note Assessment and Plan In [...] which included preparing to see the patient, [id number]-[id number] patient care, completing clinical documentation, performing a [...] 0 Enrique WILLINGHAM et alJ Clin Oncol 2012;30:3243-1043. Review of Systems PAIN ASSESSMENT: Negative for [...] prior to this visit and those in [facility]. documented in this [facility]01-12-2023 Nurse Note* Jasmin Shreman LPN - 02/25/2022 1:14 PM EST Additional intake questions: Has the patient had fever, nausea, vomiting, diarrhea, constipation, fatigue for > 1 week? No Does the patient have a decreased appetite? No Does patient want to see a Ground Crew Supervisor? No (yes to any of above refer [...] By: Jasmin Sherman LPN documented in this [facility]12-22-2022 Miscellaneous Notes* Telephone Encounter - Hannah [...] to be present when he sees the bobbin winder. Pt to cancel the appointment for 02/04/2022. documented in this encounterMercy Health St. [facility]12-15-2022 History of Present illness Narrative* Meghan Graves APRN.[employer]KER - 01/28/2022 11:30 AM EST Some elements copied from my note on 12/31/2021, the elements have been updated and all reflect current decision making from today, 01/28/2022. [facility] Clinical Note Assessment and Plan In [...] stable. Follow up per study. Meghan Graves APRN.[employer] BU[employer] MAKER Visit Details Past Medical History He is [...] 0 Enrique WILLINGHAM et alJ Clin Oncol 2012;30:6111-8573. Review of Systems PAIN ASSESSMENT: Negative for [...] prior to this visit and those [facility]. documented in this encounterMercy Health St. [facility]12-15-2022 Nurse Note* Jasmin Sherman LPN - 01/28/2022 11:25 AM EST Additional intake questions: Has the patient had fever, nausea, vomiting, diarrhea, constipation, fatigue for > 1 week? No Does the patient have a decreased appetite? No Does patient want to see a Ground Crew Supervisor? No (yes to any of above refer patient to schedulers for dietitian appointment) ) Does patient have any new or increased numbness or tingling of extremities? No Is patient interested in fertility information? No Does patient need any prescription refills? No Does patient have an advanced directive in place? No Electronically Signed By: Jasmin Sherman LPN documented in this encounterMercy Health St. [facility]11-17-2022 Nurse Note* Nargis Arita LPN - 12/31/2021 11:04 AM EST Additional intake questions: Has the patient had fever, nausea, vomiting, diarrhea, constipation, fatigue for > 1 week? No Does the patient have a decreased appetite? No Does patient want to see a Ground Crew Supervisor? No (yes to any of above refer patient to schedulers for dietitian appointment) ) Does patient have any new or increased numbness or tingling of extremities? No Is patient interested in fertility information? No Does patient need any prescription refills? No Does patient have an advanced directive in place? No, Patient refused referral to Social Work or Resource Center documented in this encounterMercy Health St. [facility]11-17-2022 History of Present illness Narrative* Meghan Graves APRN.[employer] BU[employer] MAKER - 12/31/2021 11:00 AM EST Some elements copied from my note on 12/03/2021, the elements have been updated and all reflect current decision making from today, 12/31/2021. [facility] Clinical Note Assessment and Plan In [...] months. Follow up per study. Meghan Graves APRN.[employer] MAKER Visit Details Past Medical History He is [...] 0 Enrique WILLINGHAM et alJ Clin Oncol 2012;30:2625-9282. Review of Systems PAIN ASSESSMENT: Negative for [...] prior to this visit and those [facility]. documented in this encounterMercy Health St. [facility]10-20-2022 History of Present illness Narrative* Hannah Lyons RN - 12/03/2021 1:43 PM EDTSummary: PTG 1Z21/21-283 End of Part 2 week 41/Part 3 cycle 1 day 1 visit Title:A Phase 2 Study of the Hepcidin Mimetic PTG-300 in Patients with Phlebotomy-Requiring Polycythemia Vera Consent expiration 05/29/2021 Screening date: 02/12/2021 Screening #: [id number] Part 1 week 1: 02/26/2021 Part 2 [...] skin assessment. Pt to follow up with bobbin winder. Pt verbalized understanding. Patient does continues to [...] 0 Enrique WILLINGHAM et alJ Clin Oncol 2012;30:3769-0198. PAST MEDICAL HISTORY Diagnosis Date Status/Active Issues [...] cokes. Denies recreational drug use. 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 Patient understands that this participation is voluntary and may withdrawal at any time during the trial. Patient aware to RTC in 4 weeks for Part 3 Cycle 2 ay 1 of PTG 1Z21. CAROL Zambrano, RN documented in this encounterMercy Health St. [facility]09-22-2022 History of Present illness Narrative* Meghan Graves APRN.[employer] BU[employer]LE MAKER - 11/05/2021 1:00 PM EDT Some elements copied from Elizabeth dunn's note on 10/08/2021, the elements have been updated and all reflect current decision making from today, 11/05/2021. [facility] Clinical Note Assessment and Plan In [...] stable. Follow up per study. Meghan Graves APRN.[employer] BU[employer]LE MAKER Visit Details Past Medical History He is [...] 0 Enrique WILLINGHAM et alJ Clin Oncol 2012;30:8058-5322. Review of Systems PAIN ASSESSMENT: Negative for [...] week. Oral Medication Containers (SHARPS CONTAINER) [facility] [place] 1 Container as directed. KRILL OIL ORAL [...] prior to this visit and those in [facility]. documented in this encounterMercy Health St. [facility]09-22-2022 Nurse Note* Mil Diego LPN - 11/05/2021 12:57 PM EDT Additional intake questions: Has the patient had fever, nausea, vomiting, diarrhea, constipation, fatigue for > 1 week? No Does the patient have a decreased appetite? No Does patient want to see a Ground Crew Supervisor? No (yes to any of above refer patient to schedulers for dietitian appointment) ) Does patient have any new or increased numbness or tingling of extremities? No Is patient interested in fertility information? NA Does patient need any prescription refills? No Does patient have an advanced directive in place? No, Patient referred to Resource Center documented in this encounterMercy Health St. [facility]08-25-2022 History of Present illness Narrative* Hannah Lyons RN - 10/08/2021 2:02 PM EDTSummary: PTG 1Z21/21-283 Part 2 week 33 visit Title:A Phase 2 Study of the Hepcidin Mimetic PTG-300 in Patients with Phlebotomy-Requiring Polycythemia Vera Consent expiration 05/29/2021 Screening date: 02/12/2021 Screening #: [id number] Part 1 week 1: 02/26/2021 Part 2 [...] 0 Enrique WILLINGHAM et alJ Clin Oncol 2012;30:4767-4105. PAST MEDICAL HISTORY Diagnosis Date Status/Active Issues [...] cokes. Denies recreational drug use. 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 20 mg Syringe #s: 95427, 35375, 10994, 35880 40 mg Syringe #s: 27049, 87780, 30689, 16054 The provider has reviewed and verified the [...] On-Call number for the On-Call Oncology Fellow ([phone]). Patient understands that this participation is voluntary and may withdrawal at any time during the trial. Patient aware to RTC in 4 weeks for Part 2 Week 37 of PTG 1Z21. CAROL Zambrano, RN documented in this encounterMercy Health St. [facility]08-25-2022 History of Present illness Narrative* Elizabeth Dunn APRN.[employer]LE MAKER - 10/08/2021 1:21 PM EDT Some elements copied from Dr. Ventura' note on 09/10/21, the elements have been updated and reflect current decision making from today 10/08/21. [facility] Clinical Note Assessment and Plan In [...] 0 Enrique WILLINGHAM et alJ Clin Oncol 2012;30:1411-5072. Review of Systems PAIN ASSESSMENT: Negative for [...] prior to this visit and those in [facility]. documented in this encounterMercy Health St. [facility]08-25-2022 Nurse Note* Lashonda Mooney RN - 10/08/2021 1:15 PM EDT Additional intake questions: Has the patient had fever, nausea, vomiting, diarrhea, constipation, fatigue for > 1 week? No Does the patient have a decreased appetite? No Does patient want to see a Ground Crew Supervisor? No (yes to any of above refer [...] By: Lashonda Mooney RN documented in this encounterMercy Health St. [facility]07-28-2022 History of Present illness Narrative* Kyleigh Rust RN - 09/10/2021 2:35 PM EDT Title:A Phase 2 Study of the Hepcidin Mimetic PTG-300 in Patients with Phlebotomy-Requiring Polycythemia Vera Consent expiration 05/29/2021 Screening date: 02/12/2021 Screening #: [id number] Part 1 week 1: 02/26/2021 Part 2 [...] 0 Enrique RM et alJ Clin Oncol 2012;30:2708-3851. PAST MEDICAL HISTORY Diagnosis Date Status/Active Issues [...] cokes. Denies recreational drug use. 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 20 mg Syringe #s: 71640, 10317, 54510, 36901 40 mg Syringe #s: 32958, 15766, 38571, 55784 The provider has reviewed and verified the [...] On-Call number for the On-Call Oncology Fellow ([phone]). Patient understands that this participation is voluntary and may withdrawal at any time during the trial. Patient aware to RTC in 4 weeks for Part 2 Week 33 of PTG 1Z21. Kyleigh Rust RN,OCN documented in this encounterMercy Health St. [facility]07-28-2022 Nurse Note* Maricruz Costello RN - 09/10/2021 1:32 PM EDT Additional intake questions: Has the patient had fever, nausea, vomiting, diarrhea, constipation, fatigue for > 1 week? No Does the patient have a decreased appetite? No Does patient want to see a Ground Crew Supervisor? No (yes to any of above refer [...] By: Maricruz Costello RN documented in this encounterMercy Health St. [facility]07-28-2022 History of Present illness Narrative* RT [...] 10, 2021 1:13 PM documented in this encounterMercy Health St. [facility]07-28-2022 History of Present illness Narrative* Bryce Ventura MD - 09/10/2021 8:13 AM EDT All documentation from previous visit of 08/11/2021 was copied and pasted, documentation has been reviewed and edited as necessary for today's visit. [facility] Clinical Note Assessment and Plan In [...] which included preparing to see the patient, [id number] patient care, completing clinical documentation, performing a [...] 0 Enrique WILLINGHAM et alJ Clin Oncol 2012;30:4706-9867. Review of Systems PAIN ASSESSMENT: Negative for [...] prior to this visit and those [facility]. documented in this encounterMercy Health St. [facility]07-19-2022 Miscellaneous Notes* Telephone Encounter - Hannah [...] for any further questions. documented in this encounterMercy Health St. [facility]06-28-2022 History of Present illness Narrative* Hannah Lyons RN - 08/11/2021 1:53 PM EDTSummary: PTG 1Z21/21-283 week 25 visit Title:A Phase 2 Study of the Hepcidin Mimetic PTG-300 in Patients with Phlebotomy-Requiring Polycythemia Vera Consent expiration 05/29/2021 Screening date: 02/12/2021 Screening #: [id number] Part 1 week 1: 02/26/2021 Patient is [...] 0 Enrique WILLINGHAM et alJ Clin Oncol 2012;30:0797-6703. PAST MEDICAL HISTORY Diagnosis Date Status/Active Issues [...] cokes. Denies recreational drug use. 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 Patient understands that this participation is voluntary and may withdrawal at any time during the trial. Patient aware to RTC in 4 weeks for Part 1 Week 29 of PTG 1Z21. CAROL Zambrano, RN documented in this encounterMercy Health St. [facility]06-28-2022 History of Present illness Narrative* Elizabeth Dunn APRN.[employer] BU[employer]LE MAKER - 08/11/2021 1:01 PM EDT Some elements copied from Dr. Ventura' on 07/14/2021, the elements have been updated and all reflect current decision making from today, 08/11/2021. [facility] Clinical Note Assessment and Plan In [...] 0 Enrique WILLINGHAM et alJ Clin Oncol 2012;30:0194-2000. Review of Systems PAIN ASSESSMENT: Negative for [...] week. Oral Medication Containers (SHARPS CONTAINER) [facility] [place] 1 Container as directed. KRILL OIL ORAL [...] prior to this visit and those in [facility]. documented in this encounterMercy Health [facility]. [facility]06-28-2022 Nurse Note* Maricruz Costello RN - 08/11/2021 12:47 PM EDT Additional intake questions: Has the patient had fever, nausea, vomiting, diarrhea, constipation, fatigue for > 1 week? No Does the patient have a decreased appetite? No Does patient want to see a Ground Crew Supervisor? No (yes to any of above refer [...] By: Maricruz Costello RN documented in this encounterMercy Health St. [facility]05-31-2022 History of Present illness Narrative* Bryce Ventura MD - 07/14/2021 10:12 AM EDT Some elements copied from my note on 05/21/2021, the elements have been updated and all reflect current decision making from today, 06/18/2021. [facility] Clinical Note Assessment and Plan In [...] which included preparing to see the patient, [id number]-[id number] patient care, completing clinical documentation, performing a [...] 0 Enrique WILLINGHAM et alJ Clin Oncol 2012;30:8165-6887. Review of Systems PAIN ASSESSMENT: Negative for [...] Date Elevated prostate specific antigen (PSA) Hypertension REYMUNOD (obstructive sleep apnea) Polycythemia Seasonal allergic rhinitis [...] prior to this visit and those in [facility]. documented in this encounterMercy Health [facility]. [facility]05-31-2022 History of Present illness Narrative* Hannah Lyons RN - 07/14/2021 10:07 AM EDTSummary: PTG 1Z21/21-283 part 1 week 21 visit Title:A Phase 2 Study of the Hepcidin Mimetic PTG-300 in Patients with Phlebotomy-Requiring Polycythemia Vera Consent expiration 05/29/2021 Screening date: 02/12/2021 Screening #: [id number] Part 1 week 1: 02/26/2021 Patient is [...] 0 Enrique WILLINGHAM et alJ Clin Oncol 2012;30:7848-5982. PAST MEDICAL HISTORY Diagnosis Date Status/Active Issues [...] cokes. Denies recreational drug use. 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 Patient understands that this participation is voluntary and may withdrawal at any time during the trial. Patient aware to RTC in 4 weeks for Part 1 Week 25 of PTG 1Z21. Hannah Lyons RN documented in this encounterMercy Health St. [facility]05-31-2022 Nurse Note* Maricruz Costello RN - 07/14/2021 10:06 AM EDT Additional intake questions: Has the patient had fever, nausea, vomiting, diarrhea, constipation, fatigue for > 1 week? Yes, fatigue and Provider Notified Does the patient have a decreased appetite? No Does patient want to see a Ground Crew Supervisor? No (yes to any of above refer [...] By: Maricruz Costello RN documented in this encounterMercy Health [facility]. [facility]05-05-2022 History of Present illness Narrative* Hannah Lyons RN - 06/18/2021 3:39 PM EDTSummary: PTG 1Z21/21-283 Part 1 week 17 visit Title:A Phase 2 Study of the Hepcidin Mimetic PTG-300 in Patients with Phlebotomy-Requiring Polycythemia Vera Consent expiration 05/29/2021 Screening date: 02/12/2021 Screening #: [id number] Part 1 week 1: 02/26/2021 Patient is [...] 0 Enrique WILLINGHAM et alJ Clin Oncol 2012;30:4526-0135. PAST MEDICAL HISTORY Diagnosis Date Status/Active Issues [...] cokes. Denies recreational drug use. 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 Patient understands that this participation is voluntary and may withdrawal at any time during the trial. Patient aware to RTC on 07/14/2021 for Week 21 of PTG 1Z21. Hannah Lyons RN documented in [facility] History of Present illness Narrative* Hannah Lyons RN - 05/21/2021 1:05 PM EDTSummary: PTG 1Z21/21-283 Part 1 week 13 visit Title:A Phase 2 Study of the Hepcidin Mimetic PTG-300 in Patients with Phlebotomy-Requiring Polycythemia Vera Consent expiration 05/29/2021 Screening date: 02/12/2021 Screening #: [id number] Part 1 week 1: 02/26/2021 Patient is [...] 0 Enrique WILLINGHAM et alJ Clin Oncol 2012;30:9873-7228. PAST MEDICAL HISTORY Diagnosis Date Status/Active Issues [...] cokes. Denies recreational drug use. 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 Patient understands that this participation is voluntary and may withdrawal at any time during the trial. Patient aware to RTC on 06/18/2021 for Week 17 of PTG 1Z21. Hannah Lyons RN documented in this encounterMer[facility]04-[facility]22 Nurse Note* Nargis Arita LPN - [...] No Does patient want to see a Ground Crew Supervisor? No (yes to any of above refer patient to schedulers for dietitian appointment) ) Does patient have any new or increased numbness or tingling of extremities? No Is patient interested in fertility information? No Does patient need any prescription refills? No Does patient have an advanced directive in place? No, Patient refused referral to Social Work or Resource Center documented in this encounterMer[facility]04-07-[facility] History of Present illness Narrative* Meghan Graves APRN.[employer] - 05/21/2021 10:30 AM EDT Some elements copied from my note on 04/23/2021, the elements have been updated and all reflect current decision making from today, 05/21/2021. [facility] Clinical Note Assessment and Plan In [...] and 7.9% at 19 years. Leukemia. 2013 Oct;27(9):7559-81. By the classic thrombosis risk model, he [...] to 60 mg weekly 04/23/21. Meghan Graves APRN.[employer] CC: Robert Merida, DO Visit Details Reffering Physician Robert Cummings [address] [place] [address] [place] [address] Reason for Visit Anil Leos is here [...] 0 Enrique WILLINGHAM et alJ Clin Oncol 2012;30:6806-5150. Review of Systems PAIN ASSESSMENT: Negative for [...] prior to this visit and those in [facility] No data available for this section [facility] note* Diagnosis Polycythemia vera (HCC)- Primary documented in this encounter [facility] note* Diagnosis Polycythemia vera (HCC)- Primary documented in this encounter [facility] note* Diagnosis Polycythemia vera (HCC)- Primary documented in this encounter [facility] note* Diagnosis Polycythemia vera (HCC)- Primary documented in this encounter [facility] note* Diagnosis Polycythemia vera (HCC)- Primary documented in this encounter [facility] note* Diagnosis Polycythemia vera (HCC)- Primary documented in this encounter [facility] note* Diagnosis Polycythemia vera (HCC)- Primary documented in this encounter [facility] note* Diagnosis Polycythemia vera (HCC)- Primary documented in this encounter [facility] note* Diagnosis Splenomegaly, not elsewhere classified documented in this encounter [facility] note* 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 Chronic erythremia in remission documented in this encounter [facility] note* Diagnosis Polycythemia vera (HCC)- Primary documented in this encounter [facility] note* Diagnosis Polycythemia vera (HCC)- Primary documented in this encounter [facility] note* Diagnosis Polycythemia vera (HCC)- Primary documented in this encounter [facility] note* Diagnosis Polycythemia vera (HCC)- Primary documented in this encounter [facility] note* Diagnosis Polycythemia vera (HCC)- Primary documented in this encounter [facility] note* Diagnosis Polycythemia vera (HCC)- Primary documented in this encounter [facility] note* Diagnosis Polycythemia vera (HCC)- Primary documented in this encounter [facility] note* Diagnosis Polycythemia vera (HCC)- Primary documented in this encounter [facility] note* Diagnosis Splenomegaly, not elsewhere classified- Primary documented in this encounter [facility] note* Diagnosis Polycythemia vera (HCC)- Primary documented in this encounter [facility] note* Diagnosis Splenomegaly, not elsewhere classified documented in this encounter [facility] note* Diagnosis Polycythemia vera (HCC)- Primary documented in this encounter [facility] note* Diagnosis Polycythemia vera (HCC)- Primary documented in this encounter [facility] note* Diagnosis Polycythemia vera (HCC)- Primary Research study patient Dizziness Dizziness and giddiness documented in this encounter [facility] note* Diagnosis Polycythemia vera (HCC)- Primary documented in this encounter [facility] note* Diagnosis Polycythemia vera (HCC)- Primary documented in this encounter [facility] noteNo [employer] Other Evaluation note* Diagnosis PV (polycythemia vera) (HCC) Polycythemia vera documented in this encounter [facility] note* Diagnosis Polycythemia vera (HCC)- Primary Research study patient Bilateral cold feet documented in this encounter [facility] note* Diagnosis Polycythemia rubra vera (HCC)- Primary Polycythemia vera documented in this encounter [facility] note* Diagnosis Polycythemia vera (HCC)- Primary Research study patient documented in this encounter [facility] note* Diagnosis Polycythemia vera (HCC)- Primary documented in this encounter [facility] note* Diagnosis Polycythemia vera (HCC)- Primary documented in this encounter [facility] note* Diagnosis Polycythemia vera (HCC) documented in this encounter [facility] noteNo assessment information [facility] Work Phone: Evaluation note* Diagnosis Polycythemia vera (HCC)- Primary Research study patient documented in this encounter [facility] note* Diagnosis Onset Date Resolution Status Dysfunction of left eustachian tube acute Otitis media acute Seasonal allergic rhinitis due to pollen [facility] Work Phone: Evaluation note* Diagnosis Polycythemia vera (HCC)- Primary documented in this encounter [facility] note* Diagnosis Polycythemia vera (HCC) [D45]- Primary documented in this encounter [facility] note* Diagnosis Polycythemia vera (HCC)- Primary Research study patient documented in this encounter [facility] note* Diagnosis Polycythemia vera (HCC)- Primary Research study patient documented in this encounter [facility] note* Diagnosis PV (polycythemia vera) (HCC)- Primary Polycythemia vera documented in this encounter [facility] note* Diagnosis Onset Date Resolution Status Admit Date Polycythemia vera acute May 182024 9:25am Screening PSA (prostate spec ific antigen) acute May 18, 2024 9:25am Wellness examination acute Apri 2024 9:25am [facility] Work Phone: Evaluation note* Diagnosis Polycythemia vera (HCC)- Primary documented in this encounter [facility] note* Diagnosis Polycythemia vera (HCC)- Primary Exam for clinical research Examination of participant in clinical trial Anemia, unspecified type documented in this encounter [facility] note* Diagnosis Polycythemia vera (HCC)- Primary documented in this encounter [facility] general Narrative - Reported* Type Description Date [...] History LEFT CLAVICAL Hospitalization History SEE SURGICAL [employer] Other Histtbm general Narrative - Reported* Type Description Date [...] LEFT CLAVICAL Hospitalization History SEE SURGICAL [facility]X [place] [employer] Other Hospital Discharge instructions No data available for this section [facility]Reason for [facility] (narrative)No reason for referral information availableSt. [facility] Work Phone: Reason for Referral Specialty Diagnoses / Procedures Referred By Contac t Referred To Contact CT IMAGING Diagnoses Polycythemia vera (HCC) Procedures CT ABDOMEN WO IVCON CT ABDOMEN W/O CONTRAST Annie Abreu, JACKELYN.[employer] [address] [place] [address] Ct [facility] [place] [address] Referral ID Status Reason Start Date Expiration Date V isits Requested Visits Authorized [id number] Closed Auto-Generate d Referral 05/19/2023 04/29/2024 1 1 Specialty Diagnoses / Procedures Referred By Contac t Referred To Contact CT IMAGING Diagnoses PV (polycythemia vera) (HCC) Procedures CT ABDOMEN WO IVCON [place] ABDOMEN [place] [address] [place] [address] [facility] [place] [address] Referral ID Status Reason Start Date Expiration Date V isits Requested Visits Authorized [id number] Closed Auto-Generate d Referral 12/02/2022 12/11/2023 1 1 Specialty Diagnoses / Procedures Referred By Contac t Referred To Contact CT IMAGING Diagnoses Splenomegaly, not elsewhere classified Procedures CT ABDOMEN WO IVCON CT ABDOMEN W/O CONTRAST Elizabeth Dunn, JACKELYN.[employer] [address] [place] [id number] Imaging Referral ID Status Reason Start Date Expiration Date V isits Requested Visits Authorized [id number] Closed Auto-Generate d Referral 05/22/2021 10/06/2021 1 1 Summary Purpose Family History No Family History [...] Recorded Date/ Time Advance Directives No May 30 024 9:04am Chief Complaint and Reason for Visit Chief [...] Wellness examination May 18, 2024 9:2 5am Chief Complaint Admit Date Wellness May 18, 2024 9:25 am Allergy shot July 13, 2024 9:59a m Reason for Visit Admit Date Polycythemia vera May 18, 2024 9:25 am Screening for colon cancer May 18 9:25am Screening PSA (prostate specific antigen ) May 18, 2024 9:25am Wellness examination May 18, 2024 9:2 5am Acute bronchitis due to other specified organisms May 18, 2024 9:25am Chief Complaint Admit Date Allergy shot July 13, 2024 9:59a m Allergy Shot October 09, 2024 10 :19am Additional Source Comments Source Comments (unrecognize d section and content) In the event this informatio n is protected by the Federal Confidentiality of Alcohol and Drug Abuse Patient Records regulations: The Federal rules restrict any use of the information to criminally investigate or prosecute any alcohol or drug abuse patient.[facility] HospitalIn the event this information is protected by the Federal Confidentiality of Alcohol and Drug Abuse Patient Records regulations: The Federal rules restrict any use of the information to criminally investigate or prosecute any alcohol or drug abuse patient.[facility] HospitalIn the event this information is protected by the Federal Confidentiality of Alcohol and Drug Abuse Patient Records regulations: The Federal rules restrict any use of the information to criminally investigate or prosecute any alcohol or drug abuse patient.[facility] HospitalIn the event this information is protected by the Federal Confidentiality of Alcohol and Drug Abuse Patient Records regulations: The Federal rules restrict any use of the information to criminally investigate or prosecute any alcohol or drug abuse patient.[facility] HospitalIn the event this information is protected by the Federal Confidentiality of Alcohol and Drug Abuse Patient Records regulations: The Federal rules restrict any use of the information to criminally investigate or prosecute any alcohol or drug abuse patient.[facility] HospitalIn the event this information is protected by the Federal Confidentiality of Alcohol and Drug Abuse Patient Records regulations: The Federal rules restrict any use of the information to criminally investigate or prosecute any alcohol or drug abuse patient.[facility] HospitalIn the event this information is protected by the Federal Confidentiality of Alcohol and Drug Abuse Patient Records regulations: The Federal rules restrict any use of the information to criminally investigate or prosecute any alcohol or drug abuse patient.[facility] HospitalIn the event this information is protected by the Federal Confidentiality of Alcohol and Drug Abuse Patient Records regulations: The Federal rules restrict any use of the information to criminally investigate or prosecute any alcohol or drug abuse patient.[facility] HospitalIn the event this information is protected by the Federal Confidentiality of Alcohol and Drug Abuse Patient Records regulations: The Federal rules restrict any use of the information to criminally investigate or prosecute any alcohol or drug abuse patient.[facility] HospitalIn the event this information is protected by the Federal Confidentiality of Alcohol and Drug Abuse Patient Records regulations: The Federal rules restrict any use of the information to criminally investigate or prosecute any alcohol or drug abuse patient.[facility] HospitalIn the event this information is protected by the Federal Confidentiality of Alcohol and Drug Abuse Patient Records regulations: The Federal rules restrict any use of the information to criminally investigate or prosecute any alcohol or drug abuse patient.[facility] HospitalIn the event this information is protected by the Federal Confidentiality of Alcohol and Drug Abuse Patient Records regulations: The Federal rules restrict any use of the information to criminally investigate or prosecute any alcohol or drug abuse patient.[facility] HospitalIn the event this information is protected by the Federal Confidentiality of Alcohol and Drug Abuse Patient Records regulations: The Federal rules restrict any use of the information to criminally investigate or prosecute any alcohol or drug abuse patient.[facility] HospitalIn the event this information is protected by the Federal Confidentiality of Alcohol and Drug Abuse Patient Records regulations: The Federal rules restrict any use of the information to criminally investigate or prosecute any alcohol or drug abuse patient.[facility] HospitalIn the event this information is protected by the Federal Confidentiality of Alcohol and Drug Abuse Patient Records regulations: The Federal rules restrict any use of the information to criminally investigate or prosecute any alcohol or drug abuse patient.[facility] HospitalIn the event this information is protected by the Federal Confidentiality of Alcohol and Drug Abuse Patient Records regulations: The Federal rules restrict any use of the information to criminally investigate or prosecute any alcohol or drug abuse patient.[facility] HospitalIn the event this information is protected by the Federal Confidentiality of Alcohol and Drug Abuse Patient Records regulations: The Federal rules restrict any use of the information to criminally investigate or prosecute any alcohol or drug abuse patient.[facility] HospitalIn the event this information is protected by the Federal Confidentiality of Alcohol and Drug Abuse Patient Records regulations: The Federal rules restrict any use of the information to criminally investigate or prosecute any alcohol or drug abuse patient.[facility] HospitalIn the event this information is protected by the Federal Confidentiality of Alcohol and Drug Abuse Patient Records regulations: The Federal rules restrict any use of the information to criminally investigate or prosecute any alcohol or drug abuse patient.[facility] HospitalIn the event this information is protected by the Federal Confidentiality of Alcohol and Drug Abuse Patient Records regulations: The Federal rules restrict any use of the information to criminally investigate or prosecute any alcohol or drug abuse patient.[facility] HospitalIn the event this information is protected by the Federal Confidentiality of Alcohol and Drug Abuse Patient Records regulations: The Federal rules restrict any use of the information to criminally investigate or prosecute any alcohol or drug abuse patient.[facility] HospitalIn the event this information is protected by the Federal Confidentiality of Alcohol and Drug Abuse Patient Records regulations: The Federal rules restrict any use of the information to criminally investigate or prosecute any alcohol or drug abuse patient.[facility] HospitalIn the event this information is protected by the Federal Confidentiality of Alcohol and Drug Abuse Patient Records regulations: The Federal rules restrict any use of the information to criminally investigate or prosecute any alcohol or drug abuse patient.[facility] HospitalIn the event this information is protected by the Federal Confidentiality of Alcohol and Drug Abuse Patient Records regulations: The Federal rules restrict any use of the information to criminally investigate or prosecute any alcohol or drug abuse patient.[facility] HospitalIn the event this information is protected by the Federal Confidentiality of Alcohol and Drug Abuse Patient Records regulations: The Federal rules restrict any use of the information to criminally investigate or prosecute any alcohol or drug abuse patient.[facility] HospitalIn the event this information is protected by the Federal Confidentiality of Alcohol and Drug Abuse Patient Records regulations: The Federal rules restrict any use of the information to criminally investigate or prosecute any alcohol or drug abuse patient.[facility] HospitalIn the event this information is protected by the Federal Confidentiality of Alcohol and Drug Abuse Patient Records regulations: The Federal rules restrict any use of the information to criminally investigate or prosecute any alcohol or drug abuse patient.[facility] HospitalIn the event this information is protected by the Federal Confidentiality of Alcohol and Drug Abuse Patient Records regulations: The Federal rules restrict any use of the information to criminally investigate or prosecute any alcohol or drug abuse patient.[facility] HospitalIn the event this information is protected by the Federal Confidentiality of Alcohol and Drug Abuse Patient Records regulations: The Federal rules restrict any use of the information to criminally investigate or prosecute any alcohol or drug abuse patient.[facility] HospitalIn the event this information is protected by the Federal Confidentiality of Alcohol and Drug Abuse Patient Records regulations: The Federal rules restrict any use of the information to criminally investigate or prosecute any alcohol or drug abuse patient.[facility] HospitalIn the event this information is protected by the Federal Confidentiality of Alcohol and Drug Abuse Patient Records regulations: The Federal rules restrict any use of the information to criminally investigate or prosecute any alcohol or drug abuse patient.[facility] HospitalIn the event this information is protected by the Federal Confidentiality of Alcohol and Drug Abuse Patient Records regulations: The Federal rules restrict any use of the information to criminally investigate or prosecute any alcohol or drug abuse patient.[facility] HospitalIn the event this information is protected by the Federal Confidentiality of Alcohol and Drug Abuse Patient Records regulations: The Federal rules restrict any use of the information to criminally investigate or prosecute any alcohol or drug abuse patient.[facility] HospitalIn the event this information is protected by the Federal Confidentiality of Alcohol and Drug Abuse Patient Records regulations: The Federal rules restrict any use of the information to criminally investigate or prosecute any alcohol or drug abuse patient.[facility] HospitalIn the event this information is protected by the Federal Confidentiality of Alcohol and Drug Abuse Patient Records regulations: The Federal rules restrict any use of the information to criminally investigate or prosecute any alcohol or drug abuse patient.[facility] HospitalIn the event this information is protected by the Federal Confidentiality of Alcohol and Drug Abuse Patient Records regulations: The Federal rules restrict any use of the information to criminally investigate or prosecute any alcohol or drug abuse patient.[facility] HospitalIn the event this information is protected by the Federal Confidentiality of Alcohol and Drug Abuse Patient Records regulations: The Federal rules restrict any use of the information to criminally investigate or prosecute any alcohol or drug abuse patient.[facility] HospitalIn the event this information is protected by the Federal Confidentiality of Alcohol and Drug Abuse Patient Records regulations: The Federal rules restrict any use of the information to criminally investigate or prosecute any alcohol or drug abuse patient.[facility] HospitalIn the event this information is protected by the Federal Confidentiality of Alcohol and Drug Abuse Patient Records regulations: The Federal rules restrict any use of the information to criminally investigate or prosecute any alcohol or drug abuse patient.[facility] HospitalIn the event this information is protected by the Federal Confidentiality of Alcohol and Drug Abuse Patient Records regulations: The Federal rules restrict any use of the information to criminally investigate or prosecute any alcohol or drug abuse patient.[facility] HospitalIn the event this information is protected by the Federal Confidentiality of Alcohol and Drug Abuse Patient Records regulations: The Federal rules restrict any use of the information to criminally investigate or prosecute any alcohol or drug abuse patient.[facility] HospitalIn the event this information is protected by the Federal Confidentiality of Alcohol and Drug Abuse Patient Records regulations: The Federal rules restrict any use of the information to criminally investigate or prosecute any alcohol or drug abuse patient.[facility] HospitalIn the event this information is protected by the Federal Confidentiality of Alcohol and Drug Abuse Patient Records regulations: The Federal rules restrict any use of the information to criminally investigate or prosecute any alcohol or drug abuse patient.[facility] HospitalIn the event this information is protected by the Federal Confidentiality of Alcohol and Drug Abuse Patient Records regulations: The Federal rules restrict any use of the information to criminally investigate or prosecute any alcohol or drug abuse patient.[facility] HospitalIn the event this information is protected by the Federal Confidentiality of Alcohol and Drug Abuse Patient Records regulations: The Federal rules restrict any use of the information to criminally investigate or prosecute any alcohol or drug abuse patient.[facility] HospitalIn the event this information is protected by the Federal Confidentiality of Alcohol and Drug Abuse Patient Records regulations: The Federal rules restrict any use of the information to criminally investigate or prosecute any alcohol or drug abuse patient.[facility] HospitalIn the event this information is protected by the Federal Confidentiality of Alcohol and Drug Abuse Patient Records regulations: The Federal rules restrict any use of the information to criminally investigate or prosecute any alcohol or drug abuse patient.[facility] HospitalIn the event this information is protected by the Federal Confidentiality of Alcohol and Drug Abuse Patient Records regulations: The Federal rules restrict any use of the information to criminally investigate or prosecute any alcohol or drug abuse patient.[facility] HospitalIn the event this information is protected by the Federal Confidentiality of Alcohol and Drug Abuse Patient Records regulations: The Federal rules restrict any use of the information to criminally investigate or prosecute any alcohol or drug abuse patient.[facility] HospitalIn the event this information is protected by the Federal Confidentiality of Alcohol and Drug Abuse Patient Records regulations: The Federal rules restrict any use of the information to criminally investigate or prosecute any alcohol or drug abuse patient.[facility] HospitalIn the event this information is protected by the Federal Confidentiality of Alcohol and Drug Abuse Patient Records regulations: The Federal rules restrict any use of the information to criminally investigate or prosecute any alcohol or drug abuse patient.[facility] HospitalIn the event this information is protected by the Federal Confidentiality of Alcohol and Drug Abuse Patient Records regulations: The Federal rules restrict any use of the information to criminally investigate or prosecute any alcohol or drug abuse patient.[facility] HospitalIn the event this information is protected by the Federal Confidentiality of Alcohol and Drug Abuse Patient Records regulations: The Federal rules restrict any use of the information to criminally investigate or prosecute any alcohol or drug abuse patient.[facility] HospitalIn the event this information is protected by the Federal Confidentiality of Alcohol and Drug Abuse Patient Records regulations: The Federal rules restrict any use of the information to criminally investigate or prosecute any alcohol or drug abuse patient.[facility] HospitalIn the event this information is protected by the Federal Confidentiality of Alcohol and Drug Abuse Patient Records regulations: The Federal rules restrict any use of the information to criminally investigate or prosecute any alcohol or drug abuse patient.[facility] HospitalIn the event this information is protected by the Federal Confidentiality of Alcohol and Drug Abuse Patient Records regulations: The Federal rules restrict any use of the information to criminally investigate or prosecute any alcohol or drug abuse patient.[facility] HospitalIn the event this information is protected by the Federal Confidentiality of Alcohol and Drug Abuse Patient Records regulations: The Federal rules restrict any use of the information to criminally investigate or prosecute any alcohol or drug abuse patient.[facility] HospitalIn the event this information is protected by the Federal Confidentiality of Alcohol and Drug Abuse Patient Records regulations: The Federal rules restrict any use of the information to criminally investigate or prosecute any alcohol or drug abuse patient.[facility] HospitalIn the event this information is protected by the Federal Confidentiality of Alcohol and Drug Abuse Patient Records regulations: The Federal rules restrict any use of the information to criminally investigate or prosecute any alcohol or drug abuse patient.[facility] HospitalIn the event this information is protected by the Federal Confidentiality of Alcohol and Drug Abuse Patient Records regulations: The Federal rules restrict any use of the information to criminally investigate or prosecute any alcohol or drug abuse patient.[facility] HospitalIn the event this information is protected by the Federal Confidentiality of Alcohol and Drug Abuse Patient Records regulations: The Federal rules restrict any use of the information to criminally investigate or prosecute any alcohol or drug abuse patient.[facility] HospitalIn the event this information is protected by the Federal Confidentiality of Alcohol and Drug Abuse Patient Records regulations: The Federal rules restrict any use of the information to criminally investigate or prosecute any alcohol or drug abuse patient.[facility] HospitalIn the event this information is protected by the Federal Confidentiality of Alcohol and Drug Abuse Patient Records regulations: The Federal rules restrict any use of the information to criminally investigate or prosecute any alcohol or drug abuse patient.[facility] HospitalIn the event this information is protected by the Federal Confidentiality of Alcohol and Drug Abuse Patient Records regulations: The Federal rules restrict any use of the information to criminally investigate or prosecute any alcohol or drug abuse patient.[facility] HospitalIn the event this information is protected by the Federal Confidentiality of Alcohol and Drug Abuse Patient Records regulations: The Federal rules restrict any use of the information to criminally investigate or prosecute any alcohol or drug abuse patient.[facility] HospitalIn the event this information is protected by the Federal Confidentiality of Alcohol and Drug Abuse Patient Records regulations: The Federal rules restrict any use of the information to criminally investigate or prosecute any alcohol or drug abuse patient.[facility] HospitalIn the event this information is protected by the Federal Confidentiality of Alcohol and Drug Abuse Patient Records regulations: The Federal rules restrict any use of the information to criminally investigate or prosecute any alcohol or drug abuse patient.[facility] HospitalIn the event this information is protected by the Federal Confidentiality of Alcohol and Drug Abuse Patient Records regulations: The Federal rules restrict any use of the information to criminally investigate or prosecute any alcohol or drug abuse patient.[facility] HospitalIn the event this information is protected by the Federal Confidentiality of Alcohol and Drug Abuse Patient Records regulations: The Federal rules restrict any use of the information to criminally investigate or prosecute any alcohol or drug abuse patient.[facility] HospitalIn the event this information is protected by the Federal Confidentiality of Alcohol and Drug Abuse Patient Records regulations: The Federal rules restrict any use of the information to criminally investigate or prosecute any alcohol or drug abuse patient.[facility] HospitalIn the event this information is protected by the Federal Confidentiality of Alcohol and Drug Abuse Patient Records regulations: The Federal rules restrict any use of the information to criminally investigate or prosecute any alcohol or drug abuse patient.[facility] HospitalIn the event this information is protected by the Federal Confidentiality of Alcohol and Drug Abuse Patient Records regulations: The Federal rules restrict any use of the information to criminally investigate or prosecute any alcohol or drug abuse patient.[facility] HospitalIn the event this information is protected by the Federal Confidentiality of Alcohol and Drug Abuse Patient Records regulations: The Federal rules restrict any use of the information to criminally investigate or prosecute any alcohol or drug abuse patient.[facility] HospitalIn the event this information is protected by the Federal Confidentiality of Alcohol and Drug Abuse Patient Records regulations: The Federal rules restrict any use of the information to criminally investigate or prosecute any alcohol or drug abuse patient.[facility] HospitalIn the event this information is protected by the Federal Confidentiality of Alcohol and Drug Abuse Patient Records regulations: The Federal rules restrict any use of the information to criminally investigate or prosecute any alcohol or drug abuse patient.[facility] HospitalIn the event this information is protected by the Federal Confidentiality of Alcohol and Drug Abuse Patient Records regulations: The Federal rules restrict any use of the information to criminally investigate or prosecute any alcohol or drug abuse patient.[facility] HospitalIn the event this information is protected by the Federal Confidentiality of Alcohol and Drug Abuse Patient Records regulations: The Federal rules restrict any use of the information to criminally investigate or prosecute any alcohol or drug abuse patient.[facility] HospitalIn the event this information is protected by the Federal Confidentiality of Alcohol and Drug Abuse Patient Records regulations: The Federal rules restrict any use of the information to criminally investigate or prosecute any alcohol or drug abuse patient.[facility] HospitalIn the event this information is protected by the Federal Confidentiality of Alcohol and Drug Abuse Patient Records regulations: The Federal rules restrict any use of the information to criminally investigate or prosecute any alcohol or drug abuse patient.[facility] HospitalIn the event this information is protected by the Federal Confidentiality of Alcohol and Drug Abuse Patient Records regulations: The Federal rules restrict any use of the information to criminally investigate or prosecute any alcohol or drug abuse patient.[facility] HospitalIn the event this information is protected by the Federal Confidentiality of Alcohol and Drug Abuse Patient Records regulations: The Federal rules restrict any use of the information to criminally investigate or prosecute any alcohol or drug abuse patient.[facility] HospitalIn the event this information is protected by the Federal Confidentiality of Alcohol and Drug Abuse Patient Records regulations: The Federal rules restrict any use of the information to criminally investigate or prosecute any alcohol or drug abuse patient.[facility] HospitalIn the event this information is protected by the Federal Confidentiality of Alcohol and Drug Abuse Patient Records regulations: The Federal rules restrict any use of the information to criminally investigate or prosecute any alcohol or drug abuse patient.[facility] Reason for Visit (unrecogniz ed section and content) Reason Comments Radiology CT Specialty Diagnoses / Procedures Referred By Contac t Referred To Contact CT IMAGING Diagnoses Splenomegaly, not elsewhere classified Procedures CT ABDOMEN WO IVCON CT ABDOMEN W/O CONTRAST Meghan Graves, MACHINE [employer] HELPER.[employer] [id number] Imaging Referral ID Status Reason Start Date Expiration Date V isits Requested Visits Authorized [id number] Closed Auto-Generate d Referral 02/22/2022 03/24/2023 1 1 Reason Comments Established Patient Specialty Diagnoses / Procedures Referred By Contac t Referred To Contact Hematology/Oncology / HEMATOLOGY/ONCOLOGY Diagnoses Polycythemia vera STUDY PT IRB NCT [id number] D4.5 DATE TIME PER SLIP QIANA C Procedures EST PATIENT/[place] [address] [id number] [place]ce [place] [id number] [place], [place] [id number] Referral ID Status Reason Start Date Expiration Date V isits Requested Visits Authorized [id number] Waiting for Response 09/10/2021 12/09/2021 1 1 [...] NO AUTH NEEDED CHARGE TO RESEARCH IRB [facility] [id number] D4.5 CT ABDOMEN W/O CONTRAST /NO IV OR PO PER SLIP QIANA C Procedures CT ABD & PELVIS W/CONTRAST CT WO ABD1 [address] [place] [address] [place] [address] [place] [id number] [place] [address] Referral ID Status Reason Start Date Expiration Date Visits Re quested Visits Authorized [id number] Closed 09/10/2021 12/09/2021 1 1 Reason Comments Research PTG Part 2 week 33 visit Specialty Diagnoses / Procedures Referred By Bisi jenkins Referred To Contact Hematology/Oncology / HEMATOLOGY/ONCOLOGY Diagnoses 152 MT pt aware he is early STUDY PT IRB NCT [id number] D4.5 DATE TIME RESCHEDULE QIANA C Procedures EST PATIENT/ASMT Bryce Ventura MD [address] [place] [id number] Elizabeth Dunn, MACHINE [employer] HELPER.[employer] [address] [place] [address] Referral ID Status Reason Start Date Expiration Date V isits Requested Visits Authorized [id number] Pending Review 08/11/2021 11/09/2021 1 1 Reason [...] jenkins Referred To Contact CT IMAGING Diagnoses PV (polycythemia vera) (HCC) Procedures CT ABDOMEN WO IVCON CT ABDOMEN W/O CONTRAST Bryce Ventura [place] [id number] [place] [address] [address] [place] [address] Referral ID Status Reason Start Date Expiration Date V isits Requested Visits Authorized [id number] Closed Auto-Generate d Referral 12/02/2022 12/11/2023 1 1 Reason Comments Appointment Rescheduled Reason Comments Research PTG 1Z/-283 Part 3 Cycle 16 day 1 visit Reason Comments Research PTG -180 cons ent presentation Reason Comments Benefits Investigation Reason Comments Research PTG 1Z21 EOT Rollove r to PTG 1923 C1D1 Enrollment Reason Comments Research PTG -180 Pt s igned informed consent Reason Comments Research PTG Z-283 EOT visitPTG -108 Screening/Week 0 visit Specialty Diagnoses / Procedures Referred By Bisi jenkins Referred To Contact CT IMAGING Diagnoses Polycythemia vera (HCC) Procedures CT ABDOMEN WO IVCON CT ABDOMEN W/O CONTRAST Annie Abreu, JACKELYN.[employer]ER [address] [facility] [address] [place] [address] [place] [address] Referral ID Status Reason Start Date Expiration Date V isits Requested Visits Authorized [id number] Closed Auto-Generate d Referral 05/19/2023 04/29/2024 1 1 Reason Comments Research PTG 24-180 Week 4 visit Reason Comments Research PTG 24-180 Week 8 visit Reason Comments Research PTG 1923 WK 24 Reason Comments Research PTG 1922/24-180 Week 24 visit Reason Comments Established Patient Follow-Up Reason Comments Research PTG 1923 Week 36 Reason Comments Research PTG 24-180 Week 36 visit Reason Comments Research PTG 1923 W48 Reason Comments Research PTG 1922/24-180 Week 48 visit Reason Comments Research [id number] / 24-108 / W 60 Care Teams (unrecognized sec tion and content) [employer] T[employer] T[employer] Relationship Specialty Start Date End Date Tigre Merida, [address] [place] [address] PCP - General Internal Medicine 10/16/20 [place] [address] [place] [address] Physician Hematology/Oncology 12/30/20 Hannah Lyons, ALEXANDRO [address] [place] [address] Research Nurse Hematology 03/10/21 [employer] T[employer] Tester Relationship Specialty Start Date End Date Tigre Merida, DO [address] [place] [address] PCP - General Internal Medicine 10/16/20 [place] [address] [place] [address] Physician Hematology/Oncology 12/30/20 Hannah Lyons, ALEXANDRO [address] [place] [address] Research Nurse Hematology 03/10/21 [employer] Tube Tester Relationship Specialty Start Date End Date Tigre Merida, DO [address] [place] [address] PCP - General Internal Medicine 10/16/20 [place] [address] [place] [address] Physician Hematology/Oncology 12/30/20 Hannah Lyons RN [address] [place] [address] Research Nurse Hematology 03/10/21 [employer] Tube Tester Relationship Specialty Start Date End Date Tigre Merida, DO [address] [place] [address] PCP - General Internal Medicine 10/16/20 [place] [address] [place] [address] Physician Hematology/Oncology 12/30/20 Hannah Lyons, ALEXANDRO [address] [place] [address] Research Nurse Hematology 03/10/21 [employer] T[employer] Tester Relationship Specialty Start Date End Date Tigre Merida, DO [address] [place] [address] PCP - General Internal Medicine 10/16/20 [place] [address] [place] [address] Physician Hematology/Oncology 12/30/20 Hannah Lyons, ALEXANDRO [address] [place] [address] Research Nurse Hematology 03/10/21 [employer] Tube Tester Relationship Specialty Start Date End Date Tigre Merida, DO [address] [place] [address] PCP - General Internal Medicine 10/16/20 [place] [address] [place] [address] Physician Hematology/Oncology 12/30/20 Hannah Lyons, ALEXANDRO [address] [place] [address] Research Nurse Hematology 03/10/21 [employer] T[employer] Tester Relationship Specialty Start Date End Date Tigre Merida, DO [address] [place] [address] PCP - General Internal Medicine 10/16/20 [place] [address] [place] [address] Physician Hematology/Oncology 12/30/20 Hannah Lyons, ALEXANDRO [address] [place] [address] Research Nurse Hematology 03/10/21 [employer] T[employer] Tester Relationship Specialty Start Date End Date Tigre Merida, DO [address] [place] [address] PCP - General Internal Medicine 10/16/20 [place] [address] [place] [address] Physician Hematology/Oncology 12/30/20 Hannah Lyons, ALEXANDRO [address] [place] [phone] Research Nurse Hematology 03/10/21 [employer] T[employer] Tester Relationship Specialty Start Date End Date Tigre Merida, DO [address] [place] [address] PCP - General Internal Medicine 10/16/20 [place] [address] [place] [address] Physician Hematology/Oncology 12/30/20 Hannah Lyons, ALEXANDRO [address] [place] [address] Research Nurse Hematology 03/10/21 [employer] Tube Tester Relationship Specialty Start Date End Date Tigre Merida, DO [address] [place] [address] PCP - General Internal Medicine 10/16/20 [place] [address] [place] [address] Physician Hematology/Oncology 12/30/20 Hannah Lyons, ALEXANDRO [address] [place] [address] Research Nurse Hematology 03/10/21 [employer] Tube Tester Relationship Specialty Start Date End Date Tigre Merida, DO [address] [place] [address] PCP - General Internal Medicine 10/16/20 [place] [address] [place] [address] Physician Hematology/Oncology 12/30/20 Hannah Lyons, ALEXANDRO [address] [place] [address] Research Nurse Hematology 03/10/21 [employer] Tube Tester Relationship Specialty Start Date End Date Tigre Merida, DO [address] [place] [address] PCP - General Internal Medicine 10/16/20 [place] [address] [place] [address] Physician Hematology/Oncology 12/30/20 Hannah Lyons, ALEXANDRO [address] [place] [address] Research Nurse Hematology 03/10/21 [employer] Tube Tester Relationship Specialty Start Date End Date Tigre Merida, DO [address] [place] [address] PCP - General Internal Medicine 10/16/20 [place] [address] [place] [address] Physician Hematology/Oncology 12/30/20 Hannah Lyons, ALEXANDRO [address] [place] [address] Research Nurse Hematology 03/10/21 [employer] Tube Tester Relationship Specialty Start Date End Date Tigre Merida, DO [address] [place] [address] PCP - General Internal Medicine 10/16/20 [place] [address] [place] [address] Physician Hematology/Oncology 12/30/20 Hannah Lyons, ALEXANDRO [address] [place] [address] Research Nurse Hematology 03/10/21 [employer] Tube Tester Relationship Specialty Start Date End Date Tigre Merida, DO [address] [place] [address] PCP - General Internal Medicine 10/16/20 [place] [address] [place] [address] Physician Hematology/Oncology 12/30/20 Hannah Lyons, RN [address] [place] [address] Research Nurse Hematology 03/10/21 [employer] Tube Tester Relationship Specialty Start Date End Date Tigre Merida, DO [address] [place] [address] PCP - General Internal Medicine 10/16/20 [place] [address] [place] [address] Physician Hematology/Oncology 12/30/20 Hannah Lyons, ALEXANDRO [address] [place] [address] Research Nurse Hematology 03/10/21 [employer] Tube Tester Relationship Specialty Start Date End Date Tigre Merida, DO [address] [place] [address] PCP - General Internal Medicine 10/16/20 [place] [address] [place] [address] Physician Hematology/Oncology 12/30/20 Hannah Lyons RN [address] [place] [address] Research Nurse Hematology 03/10/21 [employer] Tube Tester Relationship Specialty Start Date End Date Tigre Merida, DO [address] [place] [address] PCP - General Internal Medicine 10/16/20 [place] [address] [place] [address] Physician Hematology/Oncology 12/30/20 Hannah Lyons, ALEXANDRO [address] [place] [address] Research Nurse Hematology 03/10/21 [employer] Tube Tester Relationship Specialty Start Date End Date Tigre Merida DO [address] [place] [address] PCP - General Internal Medicine 10/16/20 [place] [address] [place] [address] Physician Hematology/Oncology 12/30/20 Hannah Lyons, ALEXANDRO [address] [place] [address]663 Research Nurse Hematology 03/10/21 [employer] Tube Tester Relationship Specialty Start Date End Date Tigre Merida DO [address] [place] [address] PCP - General Internal Medicine 10/16/20 [place] [address] [place] [address] Physician Hematology/Oncology 12/30/20 Hannah Lyons RN [address] [place] [address] Research Nurse Hematology 03/10/21 [employer] Tube Tester Relationship Specialty Start Date End Date Tigre Merida DO [address] [place] [address] PCP - General Internal Medicine 10/16/20 [place] [address] [place] [address] Physician Hematology/Oncology 12/30/20 Hannah Lyons, ALEXANDRO [address] [place] [address] Research Nurse Hematology 03/10/21 [employer] T[employer] Tester Relationship Specialty Start Date End Date Tigre Merida DO [address] [place] [address] PCP - General Internal Medicine 10/16/20 [place] [address] [place] [address] Physician Hematology/Oncology 12/30/20 Hannah Lyons RN [address] [place] [address] Research Nurse Hematology 03/10/21 [employer] T[employer] Tester Relationship Specialty Start Date End Date Tigre Merida DO [address] [place] [address] PCP - General Internal Medicine 10/16/20 [place] [address] [place] [address] Physician Hematology/Oncology 12/30/20 Hannah Lyons RN [address] [place] [address] Research Nurse Hematology 03/10/21 [employer] Tube Tester Relationship Specialty Start Date End Date Tigre Merida DO [address] [place] [address] PCP - General Internal Medicine 10/16/20 [place] [address] [place] [address] Physician Hematology/Oncology 12/30/20 Hannah Lyons RN [address] [place] [address] 12509 Research Nurse Hematology 03/10/21 [employer] Tube Tester Relationship Specialty Start Date End Date Tigre Merida DO [address] [place] [address] PCP - General Internal Medicine 10/16/20 [place] [address] [place] [address] Physician Hematology/Oncology 12/30/20 Hannah Lyons, ALEXANDRO [address] [place] [address]35 Research Nurse Hematology 03/10/21 [employer] Tube Tester Relationship Specialty Start Date End Date Tigre Merida DO [address] [place] [address] PCP - General Internal Medicine 10/16/20 [place] [address] [place] [address] Physician Hematology/Oncology 12/30/20 Hannah Lyons, ALEXANDRO [address] [place] [phone] Research Nurse Hematology 03/10/21 [employer] Tube Tester Relationship Specialty Start Date End Date Tigre Merida DO [address] [place] [address] PCP - General Internal Medicine 10/16/20 [place] [address] [place] [address] Physician Hematology/Oncology 12/30/20 Hannah Lyons, ALEXANDRO [address] [place] [phone] Research Nurse Hematology 03/10/21 [employer] T[employer] Tester Relationship Specialty Start Date End Date Tigre Merida DO [address] [place] [address] PCP - General Internal Medicine 10/16/20 [place] [address] [place] [address] Physician Hematology/Oncology 12/30/20 Hannah Lyons RN [address] [place] [id number] Research Nurse Hematology 03/10/21 [employer] T[employer] Tester Relationship Specialty Start Date End Date Tigre Merida DO [address] [place] [address] PCP - General Internal Medicine 10/16/20 [place] [address] [place] [address] Physician Hematology/Oncology 12/30/20 Hannah Lyons RN [address] [place] [id number] Research Nurse Hematology 03/10/21 [employer] T[employer] Tester Relationship Specialty Start Date End Date Tigre Merida DO [address] [place] [address] PCP - General Internal Medicine 10/16/20 [place] [address] [place] [address] Physician Hematology/Oncology 12/30/20 Hannah Lyons RN [address] [place] [address] Research Nurse Hematology 03/10/21 [employer] T[employer] Tester Relationship Specialty Start Date End Date Tigre Merida DO [address] [place] [address] PCP - General Internal Medicine 10/16/20 [place] [address] [place] [address] Physician Hematology/Oncology 12/30/20 Hannah Lyons RN [address] [place] [phone] Research Nurse Hematology 03/10/21 Team Status: Active [...] May 31, 2023 End: May 31, 2023 [employer] T[employer] Tester Relationship Specialty Start Date End Date Tigre Merida DO [address] [place] [address] PCP - General Internal Medicine 10/16/20 [place] [address] [place] [address] Physician Hematology/Oncology 12/30/20 Hannah Lyons RN [address] [place] [phone] Research Nurse Hematology 03/10/21 [employer] T[employer] Tester Relationship Specialty Start Date End Date Tigre Merida DO [address] [place] [address] PCP - General Internal Medicine 10/16/20 [place] [address] [place] [address] Physician Hematology/Oncology 12/30/20 Hannah Lyons RN [address] [place] [phone] Research Nurse Hematology 03/10/21 [employer] T[employer] Tester Relationship Specialty Start Date End Date Tigre Merida DO [address] [place] [address] PCP - General Internal Medicine 10/16/20 [place] [address] [place] [address] Physician Hematology/Oncology 12/30/20 Hannah Lyons, ALEXANDRO [address] [place] [id number] Research Nurse Hematology 03/10/21 [employer] T[employer] Tester Relationship Specialty Start Date End Date Tigre Merida DO [address] [place] [address] PCP - General Internal Medicine 10/16/20 [place] [address] [place] [address] Physician Hematology/Oncology 12/30/20 Hannah Lyons RN [address] [place] [address] Research Nurse Hematology 03/10/21 Team Status: Active [...] End: July 19, 2023 Faiza Hamlin APRN COLD TYPE ARTIST-C Attending Provider Act froylan Start: July 19, 2023 End: July 19, 2023 [employer] T[employer] Tester Relationship Specialty Start Date End Date Tigre Merida DO [address] [place] [address] PCP - General Internal Medicine 10/16/20 [place] [address] [place] [address] Physician Hematology/Oncology 12/30/20 Hannah Lyons RN [address] [place] [phone] Research Nurse Hematology 03/10/21 Team Status: Active Member Role Status Dates Tigre Merida DO Primary Care Provide r, Attending Provider Active Start: April 17, 2024 Team Status: Inactive Member Role Status Dates Tigre Merida DO Primary Care Provide r, Attending Provider Active Start: May 18, 2024 End: May 18, 2024 [employer] T[employer] Tester Relationship Specialty Start Date End Date Tigre Merida DO [address] [place] [address] PCP - General Internal Medicine 10/16/20 [place] [address] [place] [address] Physician Hematology/Oncology 12/30/20 Anaid Webster, ALEXANDRO Research Nurse 05/02/24 [employer] Tester Relationship Specialty Start Date End Date Tigre Merida DO [address] [place] [address] PCP - General Internal Medicine 10/16/20 [place] [address] [place] [address] Physician Hematology/Oncology 12/30/20 Anaid Webster, ALEXANDRO Research Nurse 05/02/24 Team Status: Active Member Role Status Dates Tigre Merida DO Primary Care Provide r, Attending Provider Active Start: May 19, 2024 Team Status: Active Member Role Status Dates Tigre Merida DO Primary Care Provide r, Attending Provider Active Start: July 12, 2024 Team Status: Inactive Member Role Status Dates Tigre Merida DO Primary Care Provide r, Attending Provider Active Start: July 13, 2024 End: July 13, 2024 [employer] T[employer] Tester Relationship Specialty Start Date End Date Tigre Merida DO [address] [place] [address] PCP - General Internal Medicine 10/16/20 [place] [address] [place] [address] Physician Hematology/Oncology 12/30/20 Anaid Webster RN Research Nurse 05/02/24 [employer] T[employer] Tester Relationship Specialty Start Date End Date Tigre Merida DO [address] [place] [address] PCP - General Internal Medicine 10/16/20 [place] [address] [place] [address] Physician Hematology/Oncology 12/30/20 Anaid Webster, ALEXANDRO Research Nurse 05/02/24 [employer] T[employer] Tester Relationship Specialty Start Date End Date Tigre Merida DO [address] [place] [id number] PCP - General Internal Medicine 10/16/20 [place] [address] [place] [address] Physician Hematology/Oncology 12/30/20 Anaid Webster RN Research Nurse 05/02/24 [employer] T[employer] Tester Relationship Specialty Start Date End Date Tigre Merida DO [address] [place] [address] PCP - General Internal Medicine 10/16/20 [place] [address] [place] [address] Physician Hematology/Oncology 12/30/20 Anaid Webster, RN Research Nurse 05/02/24 Team Status: Active Member Role Status Tarsha Merida DO Primary Care Provider Active Start: July 12, 2024 Tigre Merida DO Attending Provider Active Sta rt: July 12, 2024 Team Status: Inactive Member Role Status Dates Tigre Merida DO Primary Care Provider Active Start: July 13, 2024 End: July 13, 2024 Tigre Merida DO Attending Provider Active Sta rt: July 13, 2024 End: July 13, 2024 Team Status: Active Member Role Status Dates Tigre Merida DO Primary Care Provider Active Start: October 04, 2024 Outside Provider Attending Provider Active Start : October 04, 2024 Team Status: Inactive Member Role Status Dates Tigre Merida DO Primary Care Provider Active Start: October 09, 2024 End: October 09, 2024 Tigre Merida DO Attending Provider Active Sta rt: October 09, 2024 End: October 09, 2024 (unrecognized sect ion and content) No Status Records FoundNo Status Records FoundNo Status Records Found INFORMATION SOURCE (unrecogn ized section and content) DATE CREATED AUTHOR 09/18/2021 [facility] DATE CREATED AUTHOR AUTHOR'S ORGANIZ ATION 06/27/2024 [facility] DATE CREATED AUTHOR AUTHOR'S ORGANIZ ATION 10/13/2024 [facility] Inactive Administered Medications - up to 3 [...] BE BASED ON THE PRIMARY CLINICAL RECORDS. [facility] [employer] [facility]. provides no warranty or guarantee of the accuracy or completeness of information in this document.
[2024-10-26] MEDS: LIDOCAINE HCL 1% 100 MG/10 ML MDV INJ (12:15)
== END 2024-10-26 12:36 | disposition home or self-care (01) ==
PROVIDERS: Emergency Provider Emergency Medicine; PCP Internal Medicine
DX: S61.225A Laceration with foreign body of left ring finger without damage to nail, initial encounter (principal); S67.195A Crushing injury of left ring finger, initial encounter; Z87.891 Personal history of nicotine dependence; W20.8XXA Other cause of strike by thrown, projected or falling object, initial encounter
CPT/HCPCS: 12001; 73130; 99283